=== PATIENT | female | born 1940 | race Caucasian/White ===

== ENCOUNTER 2018-08-30 16:07 | Inpatient (IN) | payer OTHER ==
--- NOTE | 2018-08-30 17:10 | PDOC ---
History of Present Illness <Shannon Low - Last Filed: 08/30/18 22:03> - General History Source: Patient Exam Limitations: No Limitations - History of Present Illness Initial Comments: 08/30/18 16:56 Pt. is a 78 y.o. F w/ PMHx. including but not exclusive to HTN, Hypothyroidism, Gout, Asthma, Breast CA(diagnosed 10+ years ago, deferred treatment), Liver disease? GERD? presents to ED by EMS with cough sore, throat and neck pain for 1 week duration. Pt. was seen at [facility] 1 week ago for URI and was given a 6 day course of Abx. Pt. states she initially felt better but now has been feeling worse since Friday when the neck pain began. Pt. is unable to to turn her head without eliciting intense pain(06/10). Pt. states it feels like "someone is stopping her." Pt. endorses having "shakes," cough productive of light green sputum, some difficulty breathing and some photophobia. Pt. denies nausea, vomiting, numbness/tingling, changes in urinary or bowel habits. Pt. states that she has had changes in her vision over the last year. 08/30/18 19:43 Pt.'s BUN/ Cr. came back as 23/1.9- soft tissue CT Neck w/ IV contrast ordered- risks and benefits explained to the Pt. inclunding the increased risk for JACK, Pt. to be aggressively hydrated before and after procedure. Pt. to receive a dose of N-acetyl cysteine. Radiology concerns were appreciated. 08/30/18 22:36 Pt. admitted under hospitalist care. Timing/Duration: 1 week Severity: moderate Modifying Factors: improves with: movement (worsens), rest (improves) Associated Symptoms: reports: fever/chills (chills, no fevers ), loss of appetite. denies: nausea/vomiting Aspirin Received prior to arrival: Yes: no aspirin today Beta Sanjay Contraindications(Core Measure): Yes: Not Prescribed <Bora Kline - Last Filed: 08/30/18 22:37> - General Chief Complaint: Pain, Acute Stated Complaint: NECK PAIN Time Seen by Provider: 08/30/18 16:19 Past History <Shannon Lwo - Last Filed: 08/30/18 22:03> - Travel Traveled outside of the country in the last 30 days: No Close contact w/someone who was outside of country & ill: No - Past Medical History Anemia: Yes Asthma: Yes Cancer: Yes (Breast CA) COPD: Yes Dementia: Yes GI Disorders: Yes (GERD) HTN: Yes Thyroid Disease: Yes Lung CA: Yes Other medical history: kidney disease, gout, cataract - Surgical History Abdominal Surgery: Yes (hernia repair) Other Surgical History: 08/30/18 17:27 Gynecologic surgery, does not remember - Suicide/Smoking/Psychosocial Hx Smoking History: Current every day smoker Number of Cigarettes Smoked Daily: 5 Information on smoking cessation initiated: No <Bora Kline - Last Filed: 08/30/18 22:37> - Past Medical History Allergies/Adverse Reactions: Allergies Allergy/AdvReac Type Severity Reaction Status Date / Time cefuroxime [From Ceftin] Allergy Verified 08/30/18 16:17 Home Medications: Ambulatory Orders Allopurinol [Zyloprim -] 100 mg PO DAILY 08/30/18 Amlodipine Besylate [Norvasc -] 10 mg PO DAILY 08/30/18 Benzonatate 100 mg PO TID 08/30/18 Budesonide/Formeterol Fumarate [SYMBICORT 160/4.5mcg -] 1 inh PO BID 08/30/18 Calcium Carbonate/Vitamin D3 [Calcium 600+D Softgel] 1 each PO DAILY 08/30/18 Docusate Sodium [Colace] 100 mg PO BID 08/30/18 Levothyroxine [Synthroid -] 75 mcg PO DAILY 08/30/18 Pseudoeph/Dm/Guaifen/Acetamin [ Day Time Cold-Flu Rel Sftgl] 1 each PO ASDIR 08/30/18 Review of Systems - Review of Systems Able to Perform ROS?: Yes Is the patient limited Persian proficient: No Constitutional: Yes: Chills, Loss of Appetite HEENTM: Yes: Cataracts, Hearing Loss (chronic), Throat Pain, Throat Swelling. No: Eye Pain, Blurred Vision, Recent change in vision, Tinnitus Respiratory: Yes: Cough, Shortness of Breath, Wheezing, Productive cough (light green sputum). No: Hemoptysis ABD/GI: Yes: Constipated, Difficulty Swallowing, Poor Appetite, Poor Fluid Intake. No: Abdominal Distended, Nausea, Vomiting : No: Burning, Dysuria, Discharge, Frequency, Flank Pain, Hematuria, Pain Integumentary: No: Symptoms Reported Neurological: Yes: Dizziness. No: Headache Endocrine: No: Symptoms Reported <Bora Kline - Last Filed: 08/30/18 22:37> *Physical Exam - Vital Signs Last Vital Signs Temp Pulse Resp BP Pulse Ox 97.5 F L 88 18 165/76 98 08/30/18 16:18 08/30/18 16:18 08/30/18 16:18 08/30/18 16:18 08/30/18 16:18 <Shannon Low - Last Filed: 08/30/18 22:03> - Vital Signs Last Vital Signs Temp Pulse Resp BP Pulse Ox 97.5 F L 88 18 165/76 98 08/30/18 16:18 08/30/18 16:18 08/30/18 16:18 08/30/18 16:18 08/30/18 16:18 - Physical Exam General Appearance: Yes: Nourished, Appropriately Dressed, Apparent Distress HEENT: positive: CHERRIE, Symmetrical, TMs Normal, Pharyngeal Erythema, Tonsillar Erythema, Thrush. negative: Normal Voice, Pharynx Normal, Rhinorrhea, Sinus Tenderness, TM Erythema, Excessive drooling Neck: positive: Tender, Rigid, Tender lateral. negative: Carotid bruit, Lymphadenopathy (R) (limited exam d/t pain), Lymphadenopathy (L) Respiratory/Chest: positive: Respiratory Distress, Decreased Breath Sounds, Crackles, Wheezing. negative: Chest Tender, Lungs Clear, Normal Breath Sounds Cardiovascular: positive: Regular Rhythm, Regular Rate, S1, S2. negative: Edema , JVD, Murmur Vascular Pulses: Dorsalis-Pedis (R): 1+ (2+ radial b/l), Doralis-Pedis (L): 1+ Gastrointestinal/Abdominal: positive: Normal Bowel Sounds, Soft, Hernia. negative: Distended, Guarding, Rebound, Tenderness Rectal Exam: positive: deferred Musculoskeletal: positive: Normal Inspection. negative: CVA Tenderness Extremity: positive: Normal Capillary Refill, Normal Inspection. negative: Tender, Pedal Edema, Swelling, Calf Tenderness Neurologic: positive: Alert, Normal Mood/Affect, Normal Response, Respond to painful stimul, Responsive <Bora Kline - Last Filed: 08/30/18 22:37> Moderate Sedation - Procedure Monitoring Vital Signs: Procedure Monitoring Vital Signs Temperature 97.5 F L 08/30/18 16:18 Pulse Rate 88 08/30/18 16:18 Respiratory Rate 18 08/30/18 16:18 Blood Pressure 165/76 08/30/18 16:18 O2 Sat by Pulse Oximetry (%) 98 08/30/18 16:18 <Shannon Low - Last Filed: 08/30/18 22:03> - Procedure Monitoring Vital Signs: Procedure Monitoring Vital Signs Temperature 97.5 F L 08/30/18 16:18 Pulse Rate 88 08/30/18 16:18 Respiratory Rate 18 08/30/18 16:18 Blood Pressure 165/76 08/30/18 16:18 O2 Sat by Pulse Oximetry (%) 98 08/30/18 16:18 <Bora Kline - Last Filed: 08/30/18 22:37> ED Treatment Course - LABORATORY CBC & Chemistry Diagram: 08/30/18 17:30 08/30/18 17:30 - ADDITIONAL ORDERS Additional order review: Laboratory Results 08/30/18 08/30/18 17:30 17:30 Sodium 137 Potassium 4.1 Chloride 101 Carbon Dioxide 28 Anion Gap 8 BUN 23 H Creatinine 1.9 H Creat Clearance w eGFR 25.70 Random Glucose 93 Lactic Acid 0.7 Calcium 9.0 Magnesium 2.0 Total Bilirubin 0.3 AST 18 ALT 18 Alkaline Phosphatase 186 H Total Protein 6.9 Albumin 3.0 L 08/30/18 17:30 RBC 4.39 MCV 86.3 MCHC 32.8 RDW 15.0 MPV 7.2 L Neutrophils % 80.0 Lymphocytes % 11.1 Monocytes % 7.1 Eosinophils % 1.1 Basophils % 0.7 - Medications Given in the ED: ED Medications Discontinued Medications Generic Name Dose Route Start Last Admin Trade Name Freq PRN Reason Stop Dose Admin Acetaminophen 650 mg 08/30/18 17:46 08/30/18 18:03 Tylenol - PO 08/30/18 17:47 650 mg ONCE ONE Administration Albuterol/Ipratropium 1 amp 08/30/18 17:23 08/30/18 17:46 Duoneb - NEB 08/30/18 17:24 1 amp ONCE ONE Administration Cyclobenzaprine HCl 5 mg 08/30/18 17:44 08/30/18 18:03 Flexeril - PO 08/30/18 17:45 5 mg ONCE ONE Administration Dexamethasone Sodium Phosphate 12 mg 08/30/18 17:21 08/30/18 17:51 Decadron Injection - IVPB 08/30/18 17:22 12 mg ONCE ONE Administration Ketorolac Tromethamine 30 mg 08/30/18 17:19 08/30/18 17:46 Toradol Injection - IVPUSH 08/30/18 17:20 30 mg ONCE ONE Administration <Shannon Low - Last Filed: 08/30/18 22:03> - LABORATORY CBC & Chemistry Diagram: 08/30/18 17:30 08/30/18 17:30 <Bora Kline - Last Filed: 08/30/18 22:37> *DC/Admit/Observation/Transfer - Discharge Dispostion Decision to Admit order: Yes Decision to Admit order Date/Time: 08/30/18 22:03 <Shannon Low - Last Filed: 08/30/18 22:03> - Discharge Dispostion Decision to Admit order: Yes <Bora Kline - Last Filed: 08/30/18 22:37> Diagnosis at time of Disposition: Pleural effusion, Pneumonia, Neck pain, Throat pain in adult - Referrals Referrals: ON STAFF,NOT [Non Staff, Medical] -
--- NOTE | 2018-08-30 17:11 | PDOC ---
Attending Attestation - Resident Resident Name: Bora Kline - ED Attending Attestation I have performed the following: I have examined & evaluated the patient, The case was reviewed & discussed with the resident, I agree w/resident's findings & plan - HPI HPI: 08/30/18 17:40 Ms. Taylor is a 78-year-old female with a past medical history significant for Breast CA (10 years ago), Asthma, HTN, Hypothyroidism, hx of gout presents to the emergency department from [facility] with neck pain and a sore throat. The patient reports shes been having URI symptoms for the past weeks, reports following up at [facility] 6 days ago, where she was prescribed abx. The patient reports finishing the antibiotic course, with relief ; however the patient reports on Friday the symptoms presented again. The patient reports similar symptoms as prior URIs with a new onset of neck pain, thats aggravated with lateral rotation to the left and right. The patient reports associated symptoms of cough with light greenish sputum production. Allergies: cefuroxime Social history: Current everyday smoker. Surgical history: Abd surgery. PCP: None reported 08/30/18 20:06 - Physicial Exam PE: 08/30/18 17:41 NCAT, PERRL, EOMI, clear conjunctiva, anicteric, dry mucus membranes, clear oropharynx, no tonsillar hypertrophy. Airway patent, normal phonation. Uvula midline. No sinus tenderness, TM clear, no pinna tenderness to manipulation. Diffuse tenderness to paracervical and trapezius muscle regions. neck diffusely tender, right cervical neck > left, able to range and shake head up and down lungs with b/l exp wheezing. RRR. Abdomen with soft right sided hernia, no tenderness, reducible. WWP, no rash. no calf tenderness. ROBERSON x4, no focal neuro deficits. - Medical Decision Making 08/30/18 17:43 DDx. 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 VS wnl. wheezing, neck pain Prior notes reviewed, including admissions, discharges and consultations. laboratory results and imaging reviewed, basic labs and lytes wnl, notable for elevated Cr 1.9, no prior. lactic normal, reassuring. CXR_left pleural consolidation vs effusion Cardiac panel_ EKG normal sinus rhythm, no interval abnormalities, narrow QRS, ST and T wave segments and morphology normal. Nonspecific T wave abnormalities strep neg, flu neg. no fevers, nontoxic appearing. ED course: IVF, NAC for renal protection. duoneb for wheezing, analgesia and flexeril/lidoderm patch. doxycycline abx. CT soft tissue neck to eval for deep space/oropharyngeal infection /abscess with limitations in neck mobility. analgesia for suspected neck spasms, with improvement in pain. CT neck negative, emphysematous changes. CT with contrast, risks and benefit profile, benefit>risk, will hydrate and give NAC, signed consent form informing of risks with contrast dye on elevated Cr./nephropathy risk. no meningeal signs. likely pneumonia, with sputum production/cough and wheezing, Doxycycline for CAP coverage; allergy to cephalosporin, unclear reaction so will not give bedside pocus thorax exam with +moderate left pleural effusion. A line profile. lung sliding both sides. can benefit from dx/therapeutic tap as inpt with IR, as no respiratory distress/ failure or hypoxia. Dispo: Admit for clinical pneumonia, failed outpatient abx, still possible viral etiology and symptomatic left pleural effusion. Discussed results and management plan with pt at bedside, agree with impression and plan 08/30/18 22:03 Procedures - Bedside Ultrasound Bedside Ultrasound: Lung Remarks: 08/30/18 22:04 POCUS thoracic exam performed, indication includes cough/dyspnea. views obtained (bilateral lung boss). Findings include bilateral A lines, bilateral lung sliding in all boss. +left moderate pleural effusion. Impression: Pleural effusion. no e/o PTX/alveolar interstitial syndrome.
[2018-08-30] MEDS ORDERED: KETOROLAC TROMETHAMINE 30 MG/1 ML VIAL IVPUSH ONE (17:19)
[2018-08-30] MEDS ORDERED: DEXAMETHASONE SOD PHOSPHATE 20 MG/5 ML VIAL IVPB ONE (17:21)
[2018-08-30] MEDS ORDERED: ALBUTEROL SO4 2.5/IPRATROPIUM 0.5 INH SOL 3 ML VIAL.NEB. NEB ONE ×2 (17:23→17:36)
[2018-08-30] MEDS ORDERED: SODIUM CHLORIDE 1,000 ML IV SCH (17:30)
[2018-08-30] MEDS ORDERED: DEXAMETHASONE SOD PHOSPHATE 4 MG/1 ML VIAL ONE (17:36)
[2018-08-30] MEDS ORDERED: KETOROLAC TROMETHAMINE 30 MG/1 ML VIAL ONE (17:36)
[2018-08-30 17:40] LABS: BASO % 0.7 % (0-2.0); EOS % 1.1 % (0-4.5); HEMATOCRIT 37.9 % (32.4-45.2); HEMOGLOBIN 12.4 GM/dL (10.7-15.3); LYMPH % 11.1 % (8-40); MCH 28.3 pg (25.7-33.7); MCHC 32.8 g/dl (32.0-36.0); MEAN CELL VOLUME 86.3 fl (80-96); MEAN PLT VOLUME 7.2 fl (7.5-11.1); MONO % 7.1 % (3.8-10.2); PLATELET COUNT 403 K/MM3 (134-434); RBC 4.39 M/mm3 (3.60-5.2); WHITE BLOOD COUNT 8.6 K/mm3 (4.0-10.0)
[2018-08-30] MEDS ORDERED: CYCLOBENZAPRINE HCL 10 MG TABLET (FP) PO ONE (17:44)
[2018-08-30] MEDS ORDERED: ACETAMINOPHEN 325 MG TABLET (FP) PO ONE (17:46)
[2018-08-30] MEDS ORDERED: LIDOCAINE 5% TOPICAL PATCH TP ONE (17:47)
[2018-08-30] MEDS ORDERED: CYCLOBENZAPRINE HCL 10 MG TABLET (FP) ONE (17:59)
[2018-08-30] MEDS ORDERED: ACETAMINOPHEN 325 MG TABLET (FP) ONE (17:59)
[2018-08-30 18:04] LABS: ALK PHOS 186 U/L (45-117); ANION GAP 8 MMOL/L (8-16); BILIRUBIN,TOTAL 0.3 mg/dL (0.2-1); BLOOD UREA NITROGEN 23 mg/dL (7-18); CHLORIDE 101 mmol/L (98-107); CO2 28 mmol/L (21-32); CREATININE 1.9 mg/dL (0.55-1.3); GLUCOSE,RANDOM 93 mg/dL (74-106); POTASSIUM 4.1 mmol/L (3.5-5.1); SGOT/AST 18 U/L (15-37); SGPT/ALT 18 U/L (13-61); SODIUM 137 mmol/L (136-145); TOT PROT 6.9 g/dl (6.4-8.2)
[2018-08-30] MEDS ORDERED: ACETYLCYSTEINE 20% 200MG/ML 30ML VIAL *FOR INJECTION USE ONLY IVPB ONE ×2 (19:02→21:17)
[2018-08-30] MEDS ORDERED: DOXYCYCLINE INJECTION 100 MG in DEXTROSE 5%-WATER - 100 ML IVPB ONE (20:25)
[2018-08-30] MEDS ORDERED: LIDOCAINE 5% TOPICAL PATCH ONE (21:17)
[2018-08-30] MEDS ORDERED: DOXYCYCLINE HYCLATE 100 MG VIAL ONE (21:17)
--- NOTE | 2018-08-30 22:11 | PN ---
Teaching Attending Note Name of Resident: Ellis Powell ATTENDING PHYSICIAN STATEMENT I saw and evaluated the patient. I reviewed the resident's note and discussed the case with the resident. I agree with the resident's findings and plan as documented. SUBJECTIVE: Patient seen and examined with resident; please see their note for further historical information. Briefly, this is a 78 y/o CF with a PMH as discussed. She presents wityh progressive throat pain for the past week. No desatting, protecting her airway, no dysphagia or odynophagia. She doesn't know what kind of breast cancer she has. She has a history of untreated breast cancer (states that she wasn't interested in treatment at the time but now is willing to see palliative care and oncology). She is hemodynamically stable and afebrile. 10 sys ROS done and negative aside from HPI PMH and PSH reviewed FH asked and noncontributory Socially she is non drug user nondrinker Medication list reviewed; pending reconciliation OBJECTIVE: VS, labs, imaging all stable NAD, AAO, resting in bed Diminished L-sided breath sounds; sym exp NT ND +BS CN2-12 wnl, no fnd Tearful mood, appropriate affect Labs reviewed; CBC unremarkable, Cr elevated at 1.9; negative flu and strop, alk phos elevated 186; esr/crp and further studies pending Imaging reviewed; large pleural effusion seen on CXR. CT scans pending EKG reviewed ASSESSMENT AND PLAN: Patient presents with throat pain; she has had weeks of worsening SOB and the throat pain worsening for a week. Has h/o untreated breast cancer and is presenting with large malignant pleural effusions 1) Throat Pain -No acute findings on prelim read. ?Referred pain? PRN management sx -Check swallow study, followup final report for the CT neck -If no improvement or developing worsening sx call ENT 2) Likely Malignant Pleural Effusion -Checking CT; followup. Place the patient on incentive spirometry, IR consult for drainage. May need pleurex? -Followup fluid studies, cytology. 3) History of untreated breast cancer -Untreated for ambiguous reasons; now she is agreeable to see oncology and palliative care. Consult above services, check CT body 4) PATY -This dx vs. CKD; check renal anatomy on imaging, obtain FeNa. Trend BMP and monitor UOP. If no improvement call nephrology. 5) HTN -Hold amlodipine til post produre 6) Hypothyroid -Continue LT4; check TSH 7) Elevated Alk Phos -Eval for mets Full Code
--- NOTE | 2018-08-30 23:04 | HP ---
CHIEF COMPLAINT: Neck Pain PCP: Dr. Shelton HISTORY OF PRESENT ILLNESS: 78 y/o F with HTN, Gout, Asthma, Breast Cancer (+10 years, Defferred tx), NM ( 25 years ago) was BIBEMS from [facility] with Neck pain. Patient recently had a cough productive of green sputum for which she completed a 6 day course of ABx (unknown which). Shortly after, she started to feel worse with increasing sputum production. About 4 days ago, patient started to have some neck pain that suddenly became intense today. This is the first time she experienced this pain. She describes it as constant, sharp 7/10, does not radiate, worsens with coughing or arm movement, localized to her right side primarily. She tried Rest with minimal relief; did not try any NSAIDs. Previously the pain was tolerable, but today it became severe prompting the patient to visit the ED. Patient says her ROM has increased since arrival in the ED. Denies any recent trauma to the area, no changes in sleeping positions. Denies any associated fevers, chills, chest pain, SOB, nausea, vomiting diarrhea , constipation. ER course was notable for: (1) CT Neck, CXR (2) Doxycycline (3) Toradol, Decadron, Flexeril Recent Travel: Denies PAST MEDICAL HISTORY: HTN, Hypothyroidism, Gout, Asthma, Breast Cancer (+10 years, Defferred tx), B/L Cataracts, NM (25 years ago) PAST SURGICAL HISTORY: Abdominal hernia Sx (Unknown which type or when) Social History: Smokin cigarrettes daily; Has been smoking for 50 years Alcohol: Denies Drugs: Denies Ambulation: Walker Residence: [facility] assisted living Family History: Denies Allergies cefuroxime [From Ceftin] Allergy (Verified 08/30/18 16:17) HOME MEDICATIONS: Home Medications Medication Instructions Recorded Allopurinol [Zyloprim -] 100 mg PO DAILY 08/30/18 Amlodipine Besylate [Norvasc -] 10 mg PO DAILY 08/30/18 Benzonatate 100 mg PO TID 08/30/18 Budesonide/Formeterol Fumarate 1 inh PO BID 08/30/18 [SYMBICORT 160/4.5mcg -] Calcium Carbonate/Vitamin D3 1 each PO DAILY 08/30/18 [Calcium 600+D Softgel] Docusate Sodium [Colace] 100 mg PO BID 08/30/18 Levothyroxine [Synthroid -] 75 mcg PO DAILY 08/30/18 Pseudoeph/Dm/Guaifen/Acetamin [Sm 1 each PO ASDIR 08/30/18 Day Time Cold-Flu Rel Sftgl] REVIEW OF SYSTEMS As per HPI PHYSICAL EXAMINATION Vital Signs - 24 hr 08/30/18 16:18 Temperature 97.5 F L Pulse Rate 88 Respiratory 18 Rate Blood Pressure 165/76 O2 Sat by Pulse 98 Oximetry (%) GENERAL: A&Ox3, NAD, sitting upright HEAD: NCAT EYES: PERRL, EOMI, B/L Cataracts EARS, NOSE, THROAT: Oral Thrush, No posterior oropharynx erythema, Moist mucous membranes. NECK: Decreased ROM throughout. Right Posterior paracervical muscles tender to palpation with radiation to the Right superior Trapezius, No Midline tenderness , No overlying erythema, No obvious signs of trauma. CHEST: Right anterior chest tender to palpation inferior to the clavicle and over the right breast tissue laterally LUNGS: Decreased breath sounds at the bases, Rales and Wheezes heard throughout HEART: Regular rate and rhythm, normal S1 and S2 without murmur ABDOMEN: Soft, Reducible Right sided hernia, nontender, not distended, + bowel sounds, no guarding EXTREMITIES: 2+ pulses, No peripheral edema. NEUROLOGICAL: Cranial nerves II-XII intact. Normal speech. 4/5 muscle strength to handgrip, elbow flexion/extension, shoulder abduction. C5-T1 gross sensation intact throughout. SKIN: Warm, dry Laboratory Results - last 24 hr 08/30/18 08/30/18 08/30/18 17:30 17:30 17:30 WBC 8.6 RBC 4.39 Hgb 12.4 Hct 37.9 MCV 86.3 MCH 28.3 MCHC 32.8 RDW 15.0 Plt Count 403 MPV 7.2 L Absolute Neuts (auto) 6.9 Neutrophils % 80.0 Lymphocytes % 11.1 Monocytes % 7.1 Eosinophils % 1.1 Basophils % 0.7 Nucleated RBC % 0 Sodium 137 Potassium 4.1 Chloride 101 Carbon Dioxide 28 Anion Gap 8 BUN 23 H Creatinine 1.9 H Creat Clearance w eGFR 25.70 Random Glucose 93 Lactic Acid 0.7 Calcium 9.0 Magnesium 2.0 Total Bilirubin 0.3 AST 18 ALT 18 Alkaline Phosphatase 186 H Total Protein 6.9 Albumin 3.0 L Influenza A (Rapid) Influenza B (Rapid) Group A Strep Rapid 08/30/18 08/30/18 17:40 17:40 WBC RBC Hgb Hct MCV MCH MCHC RDW Plt Count MPV Absolute Neuts (auto) Neutrophils % Lymphocytes % Monocytes % Eosinophils % Basophils % Nucleated RBC % Sodium Potassium Chloride Carbon Dioxide Anion Gap BUN Creatinine Creat Clearance w eGFR Random Glucose Lactic Acid Calcium Magnesium Total Bilirubin AST ALT Alkaline Phosphatase Total Protein Albumin Influenza A (Rapid) Negative Influenza B (Rapid) Negative Group A Strep Rapid Negative ASSESSMENT/PLAN: 78 y/o F with HTN, Gout, Asthma, Hypothyroidism, Breast Cancer (+10 years, Defferred tx) was BIBEMS from [facility] with Neck pain. #Neck Pain -Worsening neck pain without any neurological changes from baseline -CT Neck with Contrast: No Abscess, Centrilobular emphsyema -Received Flexeril in ED; Continue Ofirmev PRN for pain -Physical Therapy #Left side Effusion -Possibly Malignant? effusion seen on CXR, given hx on untreated Breast Ca -Received Doxycycline in ED; Will hold ABx for now given Afebrile and without elevated WBC count -Influenza, Rapid Strep negative -Blood and throat Cx pending -Oncology (Dr. Guevara) consulted -Can consider Pulmonology consult -CT Chest, CT A/P Without contrast pending -Would likely benefit from Thoracentesis, Consider IR Consult and cytology -Continue Duonebs #Elevated Cr -Unclear Baseline, Likely PATY -Received IV Contrast in ED -Random Urine Na, Urine Osmolality, Serum Osmolality ordered -Kidney/Renal US Pending -Continue NS @ 100 mls/hr #HTN -Elevated BP in ED possibly due to pain -Continue to monitor -Hold HTN meds until post procedure #Oral Thrush -Nystatin Swish and Swallow #Gout -Stable -Restart home meds once reconciled #Asthma -Continue Duonebs -Restart home meds #Hypothyroidism -Stable, Will check TSH -Restart home meds #Elevated Alkaline Phosphatase -Will need evaluation for mets #FEN -IV NS @ 100 Mls/hr -Lytes wnl -Sodium Controlled Diet #PPx -DVT: Heparin TID Dispo: Admit to med-Surg, Will need Med-Rec Visit type - Emergency Visit Emergency Visit: Yes ED Registration Date: 08/30/18 Care time: The patient presented to the Emergency Department on the above date and was hospitalized for further evaluation of their emergent condition. - New Patient This patient is new to me today: Yes Date on this admission: 09/02/18 - Critical Care Critical Care patient: No
[2018-08-31] MEDS ORDERED: ACETAMINOPHEN 1000 MG/100 ML VIAL (NON FORMULARY) IVPB PRN (00:49)
[2018-08-31] MEDS ORDERED: SODIUM CHLORIDE 1,000 ML IV SCH (00:49)
[2018-08-31] MEDS: NYSTATIN 500,000 UNITS/5 ML SUSPENSION PO SCH ×4 (05:25→18:19)
[2018-08-31] MEDS: HEPARIN NA (PORCINE) 5,000 UNITS/ML 1ML VIAL SQ SCH ×3 (05:25→21:38)
[2018-08-31 07:24] LABS: BASO % 0.4 % (0-2.0); HEMATOCRIT 34.9 % (32.4-45.2); HEMOGLOBIN 11.5 GM/dL (10.7-15.3); LYMPH % 7.5 % (8-40); MCH 28.4 pg (25.7-33.7); MCHC 32.9 g/dl (32.0-36.0); MEAN CELL VOLUME 86.2 fl (80-96); MEAN PLT VOLUME 7.7 fl (7.5-11.1); MONO % 1.2 % (3.8-10.2); NEUT % 90.9 % (42.8-82.8); PLATELET COUNT 395 K/MM3 (134-434); RBC 4.05 M/mm3 (3.60-5.2); RDW 14.9 % (11.6-15.6); WHITE BLOOD COUNT 5.9 K/mm3 (4.0-10.0)
[2018-08-31 07:54] LABS: ALBUMIN 2.5 g/dl (3.4-5.0); ALK PHOS 155 U/L (45-117); ANION GAP 8 MMOL/L (8-16); BILIRUBIN,TOTAL 0.4 mg/dL (0.2-1); BLOOD UREA NITROGEN 24 mg/dL (7-18); CHLORIDE 103 mmol/L (98-107); CO2 27 mmol/L (21-32); CREATININE 1.9 mg/dL (0.55-1.3); GLUCOSE,RANDOM 126 mg/dL (74-106); MAGNESIUM 2.2 mg/dL (1.8-2.4); PHOSPHOROUS 5.3 mg/dL (2.5-4.9); POTASSIUM 4.6 mmol/L (3.5-5.1); SGOT/AST 11 U/L (15-37); SGPT/ALT 15 U/L (13-61); SODIUM 138 mmol/L (136-145); TOT PROT 6.2 g/dl (6.4-8.2)
[2018-08-31 09:50] LABS: OSMOLALITY,SERUM 285 mosm/kg (278-305)
--- NOTE | 2018-08-31 11:21 | PN ---
Physical Exam: SUBJECTIVE: Patient seen and examined this AM. She states that her pain is much better today and is wondering when she will be able to go home. OBJECTIVE: Vital Signs Period Temp Pulse Resp BP Sys/Trevino Pulse Ox Last 24 Hr 97.5 F-98.1 F 88-99 16-22 139-165/68-85 94-98 GENERAL: A&O, no acute distress HEAD: Normocephalic, atraumatic. EYES: PERRL, no scleral icterus EARS, NOSE, THROAT: oropharynx clear without exudates. Moist mucous membranes. NECK: supple without lymphadenopathy LUNGS: minimal crackles / wheezes at the left base HEART: Regular rate and rhythm, normal S1 and S2 without murmur ABDOMEN: Soft, nontender to palpation, normoactive bowel sounds MUSCULOSKELETAL: some tenderness to palpation on the left posterior neck and shoulder musculature, no palpable masses or abscesses EXTREMITIES: 2+ pulses, warm, well-perfused. No peripheral edema. 4/5 strength on the left, otherwise normal exam. NEUROLOGICAL: Cranial nerves II-XII grossly intact. Normal speech. PSYCHIATRIC: Cooperative. Good eye contact. Appropriate mood and affect. SKIN: Warm, dry, no rashes or lesions noted Laboratory Results - last 24 hr 08/30/18 08/30/18 08/30/18 17:30 17:30 17:30 WBC 8.6 RBC 4.39 Hgb 12.4 Hct 37.9 MCV 86.3 MCH 28.3 MCHC 32.8 RDW 15.0 Plt Count 403 MPV 7.2 L Absolute Neuts (auto) 6.9 Neutrophils % 80.0 Lymphocytes % 11.1 Monocytes % 7.1 Eosinophils % 1.1 Basophils % 0.7 Nucleated RBC % 0 Sodium 137 Potassium 4.1 Chloride 101 Carbon Dioxide 28 Anion Gap 8 BUN 23 H Creatinine 1.9 H Creat Clearance w eGFR 25.70 Random Glucose 93 Serum Osmolality 285 Lactic Acid 0.7 Calcium 9.0 Phosphorus Magnesium 2.0 Total Bilirubin 0.3 AST 18 ALT 18 Alkaline Phosphatase 186 H Total Protein 6.9 Albumin 3.0 L TSH Influenza A (Rapid) Influenza B (Rapid) Group A Strep Rapid 08/30/18 08/30/18 08/31/18 17:40 17:40 06:40 WBC 5.9 RBC 4.05 Hgb 11.5 Hct 34.9 MCV 86.2 MCH 28.4 MCHC 32.9 RDW 14.9 Plt Count 395 MPV 7.7 Absolute Neuts (auto) 5.4 Neutrophils % 90.9 H Lymphocytes % 7.5 L D Monocytes % 1.2 L D Eosinophils % 0.0 D Basophils % 0.4 Nucleated RBC % 0 Sodium Potassium Chloride Carbon Dioxide Anion Gap BUN Creatinine Creat Clearance w eGFR Random Glucose Serum Osmolality Lactic Acid Calcium Phosphorus Magnesium Total Bilirubin AST ALT Alkaline Phosphatase Total Protein Albumin TSH Influenza A (Rapid) Negative Influenza B (Rapid) Negative Group A Strep Rapid Negative 08/31/18 06:40 WBC RBC Hgb Hct MCV MCH MCHC RDW Plt Count MPV Absolute Neuts (auto) Neutrophils % Lymphocytes % Monocytes % Eosinophils % Basophils % Nucleated RBC % Sodium 138 Potassium 4.6 Chloride 103 Carbon Dioxide 27 Anion Gap 8 BUN 24 H Creatinine 1.9 H Creat Clearance w eGFR 25.70 Random Glucose 126 H Serum Osmolality Lactic Acid Calcium 9.0 Phosphorus 5.3 H Magnesium 2.2 Total Bilirubin 0.4 AST 11 L ALT 15 Alkaline Phosphatase 155 H Total Protein 6.2 L Albumin 2.5 L TSH 1.93 Influenza A (Rapid) Influenza B (Rapid) Group A Strep Rapid Active Medications Generic Name Dose Route Start Last Admin Trade Name Freq PRN Reason Stop Dose Admin Acetaminophen 1,000 mg 08/31/18 00:49 Ofirmev Injection - IVPB Q6H PRN PAIN LEVEL 6-10 Albuterol/Ipratropium 1 amp 08/31/18 01:03 Duoneb - NEB Q4H PRN SHORTNESS OF BREATH Heparin Sodium (Porcine) 5,000 unit 08/31/18 06:00 08/31/18 05:25 Heparin - SQ 5,000 unit TID [facility] Administration Miscellaneous 1 each 08/30/18 22:00 Lidoderm Patch Removal MC DAILY@2200 [facility] Nystatin 500,000 units 08/31/18 06:00 08/31/18 05:25 Nystatin Oral Suspension - PO 500,000 units Q6HPO [facility] Administration ASSESSMENT/PLAN: 78 y/o F with HTN, Gout, Asthma, Hypothyroidism, Breast Cancer (+10 years, Defferred tx) was brought from [facility] with Neck pain Left Sided Pleural Effusion -CXR noted with significant left sided effusion vs infiltrate -With history of untreated malignancy could be a malignant effusion -Consult pulmonology -For IR percutaneous thoracentesis -Send fluid for analysis Neck Pain -Improved from yesterday -Likely musculoskeletal in nature -CT without any signs of mass/abscess collection PATY vs CKD -BUN/Cr 24/1.9 -Urine Osms/Lytes pending -Renal US with atrophic right kidney, b/l echogenic kidneys, no signs of hydro -Trend BMP HTN -Verify and restart home Norvasc Oral Thrush -Nystatin swish and swallow Asthma -DuoNebs PRN -Continue home Symbicort DVT Prophylaxis -Heparin 5000 units SQ TID FEN -Fluids: none -Electrolytes: No electrolyte abnormalities, BMP in AM -Nutrition: Na Controlled diet Disposition Med/Surg Visit type - Emergency Visit Emergency Visit: Yes ED Registration Date: 08/30/18 Care time: The patient presented to the Emergency Department on the above date and was hospitalized for further evaluation of their emergent condition. - New Patient This patient is new to me today: Yes Date on this admission: 08/31/18 - Critical Care Critical Care patient: No
--- NOTE | 2018-08-31 12:03 | PN ---
Teaching Attending Note Name of Resident: Lucio Oneill ATTENDING PHYSICIAN STATEMENT I saw and evaluated the patient. I reviewed the resident's note and discussed the case with the resident. I agree with the resident's findings and plan as documented. SUBJECTIVE: Evaluated her this morning of medicine floor. she has been admitted for the W/U of the shoulder and neck pain. She states that she was in her [facility] till 10 days ago, she states that she developed coryza symptoms and she was treated with antibiotics for 5 days, at the same time she developed the gradual onset, worsening, non radiating neck and Left shoulder pain, which she states is sharp pain, and now is more in the posterior aspect of the the Left side of the chest wall, no rash, no fever , no chills, no night sweets no recent weight loss. She denies any trigger, no aggravating no alleviating factors. She did not take any medication or put heating pad for the pain control. OBJECTIVE: She is sitting in bed in no distress. has mild productive cough MMM No ocular discharge No nasal discharge Abd: BS+, NT/ND NO RASH. has no point tenderness in the neck, has some tenderness over the cervical spine, has minimal limitation of the movement int he neck due to pain in the muscles, no other complaints at this time. Breast has a scar fromt eh biopsy on the R breast, no clear mass in my exam, no other skin abnormalities No LAD in the neck and axila. has no shoulder tenderness and no limitation of movement in the active and passive shoulder movement ASSESSMENT AND PLAN: She is a 78 Y/O F active smoker for lionel than 50 years as well as second hand smoker P/W l shoulder and post chest pain in [place] xray found to have L sided pleural effusion. Shoulder pain: combination of MSK and referral pain, pain management with NSAIDS, no further intervention indicated at this time Pleural effusion: she is post infection, smoker and has possibility of malignant effusion as well as post pneumonic effusion , as it is unilateral, will ask IR to tab the effusion and will F/u with the results, pulmonayr input appreciated Nicotine use: will give nicotine patch Dvt ppx: Lovenox Diet: regular diet no need for further BRODY for neck pain .
--- NOTE | 2018-08-31 15:05 | PN ---
Progress Note (short form) - Note Progress Note: PULMONARY CONSULTATION DICTATED 08/31/18 IMP LLL CONSOLIDATION/EFFUSION ?PNEUMONIA,? MALIGNANT ASTHMA ? H/O BREAST CA PATY ASTHMA GOUT PLAN IV ABX CULTURES INHALED BRONCHODILATORS IVF CHEST CT DIAGNOSTIC THORACENTESIS MONITOR LYTES,RENAL FUNCTION URINARY ANTIGENS DR GAINES Problem List - Problems (1) Asthma Code(s): J45.909 - UNSPECIFIED ASTHMA, UNCOMPLICATED (2) Pleural effusion Code(s): J90 - PLEURAL EFFUSION, NOT ELSEWHERE CLASSIFIED (3) Pneumonia Code(s): J18.9 - PNEUMONIA, UNSPECIFIED ORGANISM (4) H/O malignant neoplasm of breast Code(s): Z85.3 - PERSONAL HISTORY OF MALIGNANT NEOPLASM OF BREAST (5) Anemia Code(s): D64.9 - ANEMIA, UNSPECIFIED (6) Asthma Code(s): J45.909 - UNSPECIFIED ASTHMA, UNCOMPLICATED (7) Gout Code(s): M10.9 - GOUT, UNSPECIFIED
--- NOTE | 2018-08-31 15:53 | CONSULT ---
Consult Consult Specialty:: HEMATOLOGY-ONCOLOGY Referred by:: Harleen. NOHEMI Noe Reason for Consultation:: possible malignancy, hx of untreated breast mass - History of Present Illness Chief Complaint: shortness of breath History of Present Illness: 78 yr old woman with hx of untreated breast cancer, current everday smoker, HTN , gout, asthma, hx of VT(25yrs ago), resident of [facility](past 3yrs) presented with collar bone and neck pain. pain starts at base of neck radiates down her shoulders and is around her collar bone. also c/ o productive cough. Found to have LLL consolidation with concern for malignancy. started smoking at the age of 18, 5cigs per day. 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 denies ever receiving a colonoscopy 9-10 yrs ago she was found to have a mass in her right breast, underwent biopsy but did not return for results or treatment or further evaluation. did not want to be treated or find out her diagnosis at that time. denies fevers, chest pain, abdominal pain, diarrhea, constipation, headache, brusing/bleeding. 3 older brothers with cancer, knows atleast one of them was a smoker with lung cancer, older sister with breast cancer(unsure of type or age of dx) she at age of 67 from an VT. does not her mother's pmhx, father's side has "lots of cancer" - History Source History Provided By: Patient Limitations to Obtaining History: No Limitations - Past Medical History Cardio/Vascular: Yes: CAD, HTN, VT (25 yrs ago) ...: No - Alcohol/Substance Use Hx Alcohol Use: No - Smoking History Smoking history: Current every day smoker Aproximately how many cigarettes per day: 5 <Krish Briceno - Last Filed: 08/31/18 20:15> Home Medications <Whit Berg - Last Filed: 08/31/18 19:14> <Krish Briceno - Last Filed: 08/31/18 20:15> - Allergies Allergies/Adverse Reactions: Allergies Allergy/AdvReac Type Severity Reaction Status Date / Time cefuroxime [From Ceftin] Allergy Verified 08/30/18 16:17 - Home Medications Home Medications: Ambulatory Orders Allopurinol [Zyloprim -] 100 mg PO DAILY 08/30/18 Amlodipine Besylate [Norvasc -] 10 mg PO DAILY 08/30/18 Benzonatate 100 mg PO TID 08/30/18 Budesonide/Formeterol Fumarate [SYMBICORT 160/4.5mcg -] 2 inh PO BID 08/30/18 Calcium Carbonate/Vitamin D3 [Calcium 600+D Softgel] 2 each PO DAILY 08/30/18 Docusate Sodium [Colace] 100 mg PO BID 08/30/18 Levothyroxine [Synthroid -] 75 mcg PO DAILY 08/30/18 Pseudoeph/Dm/Guaifen/Acetamin [ Day Time Cold-Flu Rel Sftgl] 1 each PO ASDIR 08/30/18 Family Disease History - Family Disease History Family Disease History: CA: Sister <Krish Briceno - Last Filed: 08/31/18 20:15> Review of Systems - Review of Systems Constitutional: reports: Loss of Appetite, Unintentional Wgt. Loss. denies: Fever, Lethargy Eyes: reports: No Symptoms HENT: reports: No Symptoms Neck: reports: Pain on Movement Cardiovascular: reports: No Symptoms Respiratory: reports: Cough, SOB Gastrointestinal: reports: No Symptoms Breasts: reports: Lumps, Skin Changes. denies: Discharge from Nipple, Pain Musculoskeletal: denies: Joint Pain, Muscle Pain Neurological: reports: No Symptoms Hematology/Lymphatic: reports: No Symptoms <Krish Briceno - Last Filed: 08/31/18 20:15> Physical Exam Vital Signs: Vital Signs Temperature 98.1 F 08/31/18 18:45 Pulse Rate 100 H 08/31/18 18:45 Respiratory Rate 20 08/31/18 18:45 Blood Pressure 147/78 08/31/18 18:45 O2 Sat by Pulse Oximetry (%) 93 L 08/31/18 09:00 Labs: CBC, BMP 08/31/18 06:40 08/31/18 06:40 <Whit Berg - Last Filed: 08/31/18 19:14> Vital Signs: Vital Signs Temperature 98.4 F 08/31/18 13:30 Pulse Rate 99 H 08/31/18 13:30 Respiratory Rate 20 08/31/18 13:30 Blood Pressure 141/79 08/31/18 13:30 O2 Sat by Pulse Oximetry (%) 93 L 08/31/18 09:00 Constitutional: Yes: Well Nourished, No Distress, Calm Eyes: Yes: Conjunctiva Clear, EOM Intact HENT: Yes: Atraumatic, Normocephalic Neck: Yes: Supple, Trachea Midline. No: Decreased ROM, Lymphadenopathy, Rigid, Tenderness, Thyromegaly Cardiovascular: Yes: Regular Rate and Rhythm, S1, S2 Respiratory: Yes: Regular, Cough, Other (crackles at bases) Gastrointestinal: Yes: Normal Bowel Sounds, Soft, Hernia (large hernia right sided, well-healed midine scar) Breast(s): Yes: Left (intact normal skin, no nipple discharge, no palpable masses), Right (below nipple in 7pm position is firm hyperkeratotic puckered nonerythematous skin(as per patient it is the site of previous biopsy). no nipple discharge, nontender breast). No: Nipple Inversion Edema: No Peripheral Pulses WNL: Yes Neurological: Yes: Alert, Oriented ...Motor Strength: WNL Labs: CBC, BMP 08/31/18 06:40 08/31/18 06:40 <Krish Briceno - Last Filed: 08/31/18 20:15> Assessment/Plan 78 yr old woman with HTN, asthma, gout, h/o of breast mass, found to have LLL consolidation and PATY being treated for pneumonia Problem List: HTN asthma gout Breast mass LLL consolidation PATY pneumonia A/P patient is currently amenable to further investigation of her breast findings, awaiting thoracocentesis for evaluation of pleural fluid for infectious vs malignancy no lytic lesions noted in soft tissue neck CT, bone scan ordered for further evaluation txment for pneumonia <Krish Briceno - Last Filed: 08/31/18 20:15>
--- NOTE | 2018-08-31 16:21 | CONS ---
DATE OF CONSULTATION: 08/31/2018 REFERRING PHYSICIAN: Melisa Anand MD The patient is a 78-year-old white female with a past medical history of asthma, history of breast CA diagnosed 10 years ago, never treated, history of questionable liver disease, GERD, hypertension, hypothyroidism, long-standing history of tobacco use, approximately one-half pack per day for many years, still smoking. Admitted to [facility] with complaint of 3 to 4 day history of posterior right chest pain associated with cough productive of green sputum. The patient also states she felt a fever up to about 100 to 101, as well as chills. She denied any nausea, vomiting, or diaphoresis. Apparently she was seen at [facility] a week ago for URI symptoms. At that time, she was treated for a 6-day course of antibiotic therapy. Initially she felt improvement but her symptoms worsened on Friday prior to this admission. Patient also complains of some shortness of breath and dyspnea on exertion. There is no history of occupational exposure to chemicals or fumes. There is no history of recent travel. On admission, she had a chest x-ray performed, which revealed right lower lobe infiltrate as well as an effusion. She was placed on antibiotic therapy. Past medical history, again, includes asthma, hypertension, history of breast CA, never treated, hypothyroidism, gout, GERD, and questionable liver disease. REVIEW OF SYSTEMS: Positive for shortness of breath, positive chest congestion, positive back pain, positive cough, positive sputum, positive fever. No chest pain, no palpitations. No nausea, no vomiting, no hemoptysis. Current medications include Lidoderm, acetaminophen, heparin, DuoNeb, and nystatin. PHYSICAL EXAMINATION: General: The patient is a well-developed, well-nourished female, awake, alert, in no acute distress. Vital Signs: She is afebrile. Heart rate is 99. Blood pressure 141/79. Respiratory rate is 20. O2 saturation is 93% on 3 L. HEENT: Normocephalic, atraumatic. Neck: Supple. Heart: Regular, S1, S2. Chest: A few crackles at the left base. Abdomen: Soft. Bowel sounds are positive. Extremities: No cyanosis, edema. LABORATORY DATA: WBC is 5.9, hemoglobin 11.5, hematocrit 39.9, with a platelet count of 395,000. BUN 24, creatinine 1.9. Influenza negative. Group B negative. Chest x-ray: Left lower lobe consolidation and effusion. IMPRESSION: 1. Left lower lobe consolidation and effusion. Rule out possible community-acquired pneumonia. Cannot exclude possible underlying malignant etiology in view of long-standing history of tobacco use as well as a history of breast cancer. 2. Asthma. 3. Hypertension. 4. Gastroesophageal reflux disease. 5. Hypothyroidism. 6. Gout. PLAN: IV antibiotics, supplemental O2, inhaled bronchodilators. Obtain CT scan of the chest. Interventional Radiology consult for a diagnostic thoracentesis. Obtain cultures. FLO GAINES M.D. HEIDI/[id number]
--- NOTE | 2018-08-31 18:30 | PN ---
Teaching Attending Note Name of Resident: Krish Briceno ATTENDING PHYSICIAN STATEMENT I saw and evaluated the patient. I reviewed the resident's note and discussed the case with the resident. I agree with the resident's findings and plan as documented. ASSESSMENT AND PLAN: 78 y/o with HTN, hypothyrpoid, comes in with shortness of breath and shoulder pain. Noted to have Lt. plkeural effusion Remote h/o breast mass for which she was never treated On exam rt. breast lower quadrant puckering and induration will check bone scan Checking CT chest Thoracentesis of lt. pleural effusion will follow
[2018-09-01] MEDS: LIDOCAINE PATCH REMOVAL MC SCH ×2 (06:24→22:49)
[2018-09-01] MEDS: HEPARIN NA (PORCINE) 5,000 UNITS/ML 1ML VIAL SQ SCH ×3 (06:24→22:48)
[2018-09-01] MEDS: NYSTATIN 500,000 UNITS/5 ML SUSPENSION PO SCH ×4 (06:24→23:14)
[2018-09-01 07:43] LABS: INR 0.9 (0.83-1.09); PROTHROMBIN TIME (PATIENT) 10.6 SEC (9.7-13.0)
[2018-09-01 07:46] LABS: ACTIVATED PTT 25.5 SECONDS (25.2-36.5)
--- NOTE | 2018-09-01 07:59 | PN ---
Teaching Attending Note Name of Resident: Jose A Alcazar ATTENDING PHYSICIAN STATEMENT I saw and evaluated the patient. I reviewed the resident's note and discussed the case with the resident. I agree with the resident's findings and plan as documented. SUBJECTIVE: Patient is comfrotable, no shortness of breath at rest. No fever or chills. OBJECTIVE: Vital Signs Temperature 97.9 F 09/01/18 06:00 Pulse Rate 86 09/01/18 06:00 Respiratory Rate 20 09/01/18 06:00 Blood Pressure 137/83 09/01/18 06:00 O2 Sat by Pulse Oximetry (%) 93 L 08/31/18 21:00 GENERAL: A&Ox3, NAD, sitting upright HEAD: NCAT, EYES: PERRL, EOMI, B/L Cataracts EARS, NOSE, THROAT: Oral Thrush, No posterior oropharynx erythema, Moist mucous membranes. NECK: Decreased ROM throughout. Right Posterior paracervical muscles tender to palpation with radiation to the Right arm. CHEST: Right anterior chest tender to palpation inferior to the clavicle and over the right breast tissue laterally LUNGS: Decreased breath sounds at the bases bl, Rales at the basis. HEART: Regular rate and rhythm, normal S1 and S2 without murmur ABDOMEN: Soft, Reducible 2 hernias , nontender, not distended, positive for BS , no guarding EXTREMITIES: 2+ pulses, No peripheral edema. NEUROLOGICAL: Cranial nerves II-XII intact. Normal speech. SKIN: Warm, dry CBCD WBC 5.9 K/mm3 (4.0-10.0) 08/31/18 06:40 RBC 4.05 M/mm3 (3.60-5.2) 08/31/18 06:40 Hgb 11.5 GM/dL (10.7-15.3) 08/31/18 06:40 Hct 34.9 % (32.4-45.2) 08/31/18 06:40 MCV 86.2 fl (80-96) 08/31/18 06:40 MCHC 32.9 g/dl (32.0-36.0) 08/31/18 06:40 RDW 14.9 % (11.6-15.6) 08/31/18 06:40 Plt Count 395 K/MM3 (134-434) 08/31/18 06:40 MPV 7.7 fl (7.5-11.1) 08/31/18 06:40 CMP Sodium 138 mmol/L (136-145) 08/31/18 06:40 Potassium 4.6 mmol/L (3.5-5.1) 08/31/18 06:40 Chloride 103 mmol/L (98-107) 08/31/18 06:40 Carbon Dioxide 27 mmol/L (21-32) 08/31/18 06:40 Anion Gap 8 MMOL/L (8-16) 08/31/18 06:40 BUN 24 mg/dL (7-18) H 08/31/18 06:40 Creatinine 1.9 mg/dL (0.55-1.3) H 08/31/18 06:40 Creat Clearance w eGFR 25.70 (>60) 08/31/18 06:40 Random Glucose 126 mg/dL (74-106) H 08/31/18 06:40 Calcium 9.0 mg/dL (8.5-10.1) 08/31/18 06:40 Total Bilirubin 0.4 mg/dL (0.2-1) 08/31/18 06:40 AST 11 U/L (15-37) L 08/31/18 06:40 ALT 15 U/L (13-61) 08/31/18 06:40 Alkaline Phosphatase 155 U/L (45-117) H 08/31/18 06:40 Total Protein 6.2 g/dl (6.4-8.2) L 08/31/18 06:40 Albumin 2.5 g/dl (3.4-5.0) L 08/31/18 06:40 Current Medications Generic Name Dose Route Start Last Admin Trade Name Freq PRN Reason Stop Dose Admin Acetaminophen 1,000 mg 08/31/18 00:49 Ofirmev Injection - IVPB Q6H PRN PAIN LEVEL 6-10 Albuterol/Ipratropium 1 amp 08/31/18 01:03 Duoneb - NEB Q4H PRN SHORTNESS OF BREATH Heparin Sodium (Porcine) 5,000 unit 08/31/18 06:00 09/01/18 06:24 Heparin - SQ 5,000 unit TID [facility] Administration Miscellaneous 1 each 08/30/18 22:00 09/01/18 06:24 Lidoderm Patch Removal MC 1 each DAILY@2200 [facility] Administration Nystatin 500,000 units 08/31/18 06:00 09/01/18 06:24 Nystatin Oral Suspension - PO 500,000 units Q6HPO [facility] Administration Home Medications Medication Instructions Recorded Allopurinol [Zyloprim -] 100 mg PO DAILY 08/30/18 Amlodipine Besylate [Norvasc -] 10 mg PO DAILY 08/30/18 Benzonatate 100 mg PO TID 08/30/18 Budesonide/Formeterol Fumarate 2 inh PO BID 08/30/18 [SYMBICORT 160/4.5mcg -] Calcium Carbonate/Vitamin D3 2 each PO DAILY 08/30/18 [Calcium 600+D Softgel] Docusate Sodium [Colace] 100 mg PO BID 08/30/18 Levothyroxine [Synthroid -] 75 mcg PO DAILY 08/30/18 Pseudoeph/Dm/Guaifen/Acetamin [Sm 1 each PO ASDIR 08/30/18 Day Time Cold-Flu Rel Sftgl] ASSESSMENT AND PLAN: Patient is a 78 y/o F with HTN, Gout, Asthma, Hypothyroidism, Breast Cancer (+ 10 years, Defferred tx) presented with Neck pain and was found to have left sided pleural effusion. # acute Left side Effusion cannot r/o Malignant with the hx of breast cancer , need therapeutic tap. is consulted Pulmonary consult appreciated. CT Chest is reporting Pneumonia. # Penumonia: will start the patient on Levaquin and flagyl , ID consult appreciated. Consider IR Consult and cytology, Continue Duonebs # Acute over chronic renal failure : US of kidneys no hydro. but has medical renal disease. nephro consult. #Neck Pain: CT Neck with Contrast: No Abscess, Centrilobular emphsyema Flexeril if needed, Continue Ofirmev PRN for pain, Physical Therapy #HTN controlled continue home meds. #Oral Thrush: Nystatin Swish and Swallow #Gout:Stable, continue home meds. #Asthma:Continue Duonebs, Restart home meds #Hypothyroidism: Stable, Will check TSH, Restart home meds #Elevated Alkaline Phosphatase: monitor, need to r/o bone mets. follow bone scan. #PPx:DVT: Heparin TID
[2018-09-01 08:06] LABS: ANION GAP 7 MMOL/L (8-16); BLOOD UREA NITROGEN 36 mg/dL (7-18); CHLORIDE 103 mmol/L (98-107); CO2 29 mmol/L (21-32); CREATININE 2.1 mg/dL (0.55-1.3); GLUCOSE,RANDOM 85 mg/dL (74-106); MAGNESIUM 2.3 mg/dL (1.8-2.4); PHOSPHOROUS 5.3 mg/dL (2.5-4.9); POTASSIUM 4.5 mmol/L (3.5-5.1); SODIUM 139 mmol/L (136-145)
--- NOTE | 2018-09-01 09:21 | PN ---
Physical Exam: SUBJECTIVE: Patient seen and examined at bedside this morning. No overnight events. She denies any acute complaints. OBJECTIVE: Vital Signs Period Temp Pulse Resp BP Sys/Trevino Pulse Ox Last 24 Hr 97.7 F-98.4 F 86-100 18-20 137-154/73-84 93 GENERAL: The patient is awake, alert, and fully oriented, in no acute distress. HEAD: Normocephalic, atraumatic. EYES: PERRL, extraocular movements intact, sclera anicteric. ENT: Oropharynx clear without exudates, moist mucous membranes. NECK: supple without lymphadenopathy LUNGS: Good inspiratory effort. Rhonchi auscultated with faint expiratory wheezes B/l lower lobes. Not using accessory muscles of respiration. HEART: Regular rate and rhythm, S1, S2 without murmur, rub or gallop. BREAST: Right breast indurated greater than left breast. Lesion 2cm X 2cm noted inferior to right nipple. No discharge. (Examined with RN Radha as scallop cutter machine) ABDOMEN: Soft, nontender. Normoactive bowel sounds auscultated X4 quadrants. LLQ , and RLQ ventral hernias appreciated, soft, reducible. NEUROLOGICAL: Cranial nerves II through XII grossly intact. Normal speech. PSYCH: Normal mood, normal affect upon my encounter today. SKIN: Warm, dry. Laboratory Results - last 24 hr 08/30/18 09/01/18 09/01/18 17:30 06:15 06:15 PT with INR 10.60 INR 0.90 PTT (Actin FS) 25.5 Sodium 137 139 Potassium 4.1 4.5 Chloride 101 103 Carbon Dioxide 28 29 Anion Gap 8 7 L BUN 23 H 36 H Creatinine 1.9 H 2.1 H Creat Clearance w eGFR 25.70 22.90 Random Glucose 93 85 Serum Osmolality 285 Calcium 9.0 9.0 Phosphorus 5.3 H Magnesium 2.0 2.3 Total Bilirubin 0.3 AST 18 ALT 18 Alkaline Phosphatase 186 H Total Protein 6.9 Albumin 3.0 L Active Medications Generic Name Dose Route Start Last Admin Trade Name Freq PRN Reason Stop Dose Admin Acetaminophen 1,000 mg 08/31/18 00:49 Ofirmev Injection - IVPB Q6H PRN PAIN LEVEL 6-10 Albuterol/Ipratropium 1 amp 08/31/18 01:03 Duoneb - NEB Q4H PRN SHORTNESS OF BREATH Heparin Sodium (Porcine) 5,000 unit 08/31/18 06:00 09/01/18 06:24 Heparin - SQ 5,000 unit TID KASSIDY Administration Miscellaneous 1 each 08/30/18 22:00 09/01/18 06:24 Lidoderm Patch Removal MC 1 each DAILY@2200 KASSIDY Administration Nystatin 500,000 units 08/31/18 06:00 09/01/18 06:24 Nystatin Oral Suspension - PO 500,000 units Q6HPO KASSIDY Administration ASSESSMENT/PLAN: Patient is a 78 year old female with history of breast cancer (treatment deffered), hypertension, asthma, gout presented with complaint of left sided neck, shoulder pain. Neck pain -Improving. Likely musculoskeletal in etiology. -Acetaminophen 650mg PO Q6H PRN Left pleural effusion -Concern for malignant effusion, given history of untreated breast cancer. -Pulmonology recommendations (Dr. Boone) appreciated. -CT chest concerning for acute pneumonia. Begin Levaquin 750mg IV Q48H (Cr clearance less than 30), Flagyl 500mg IV Q8H -F/U ID consult (Dr. Arroyo) -F/U diagnostic thoracentesis Breast Cancer -Oncology recommendations (Dr. Sherman) appreciated. -F/U bone scan and CT chest. PATY -Unclear etiology. Pending urine omsolality studies -BUN 46/ Cr 2.1 (Cr 1.9 upon admission) -Renal US shows atrophic right kidney, b/l echogenic kidneys without hydronephrosis. -F/U nephrology consult (Dr. Whalen) Asthma -Faint wheezing, however not in acute exacerbation. -Duonebs 1 amp Q4H PRN -Symbicort Hypothyroidism -Synthroid 75mcg PO daily Hypertension -Amlodipine 10mg PO daily Gout -[id number] PO daily Oral thrush -Nystatin Q6H PO FEN -No IV fluids -Follow CMP -Sodium controlled diet. Prophylaxis -Heparin 5000u subq TID Disposition -Continue care in medical surgical floor Visit type - Emergency Visit Emergency Visit: Yes ED Registration Date: 08/30/18 Care time: The patient presented to the Emergency Department on the above date and was hospitalized for further evaluation of their emergent condition. - New Patient This patient is new to me today: Yes Date on this admission: 09/01/18 - Critical Care Critical Care patient: No - Discharge Referral Referred to [facility] Med P.C.: No
--- NOTE | 2018-09-01 11:30 | PN ---
Progress Note (short form) - Note Progress Note: PULMONARY OOB TO WHEELCHAIR ON WAY TO CT CHEST VSS ANICTERIC DIMINISHED BREATH SOUNDS S1S2 BS+ NO EDEMA LABS/MICRO/NOTES/IMAGES/MEDS REVIEWED P LLL CONSOLIDATION/EFFUSION ?PNEUMONIA,? MALIGNANT ASTHMA ? H/O BREAST CA PATY ASTHMA GOUT PLAN IV ABX CULTURES INHALED BRONCHODILATORS IVF CHECK CHEST CT DIAGNOSTIC THORACENTESIS MONITOR LYTES,RENAL FUNCTION URINARY ANTIGENS Mike RODRIGUES MD
[2018-09-01] MEDS: ALBUTEROL SO4 2.5/IPRATROPIUM 0.5 INH SOL 3 ML VIAL.NEB. NEB PRN ×2 (16:01→20:25)
[2018-09-01] MEDS: amLODIPine BESYLATE 10 MG TABLET (FP) PO SCH (16:36)
[2018-09-01] MEDS ORDERED: ACETAMINOPHEN 325 MG TABLET (FP) PO PRN (16:40)
[2018-09-01] MEDS: DOCUSATE SODIUM 100 MG CAPSULE (FP) PO SCH (22:48)
[2018-09-02] MEDS: LEVOTHYROXINE NA 75 MCG TABLET (FP) PO SCH (06:11)
[2018-09-02] MEDS: NYSTATIN 500,000 UNITS/5 ML SUSPENSION PO SCH ×4 (06:11→23:35)
[2018-09-02] MEDS: HEPARIN NA (PORCINE) 5,000 UNITS/ML 1ML VIAL SQ SCH ×3 (06:11→21:28)
[2018-09-02 06:55] LABS: HEMATOCRIT 33.7 % (32.4-45.2); MCH 28.3 pg (25.7-33.7); MCHC 32.5 g/dl (32.0-36.0); MEAN CELL VOLUME 87.1 fl (80-96); MEAN PLT VOLUME 7.9 fl (7.5-11.1); PLATELET COUNT 406 K/MM3 (134-434); RBC 3.88 M/mm3 (3.60-5.2); RDW 15.2 % (11.6-15.6); WHITE BLOOD COUNT 10.5 K/mm3 (4.0-10.0)
[2018-09-02 07:23] LABS: ALBUMIN 2.6 g/dl (3.4-5.0); ALK PHOS 108 U/L (45-117); ANION GAP 7 MMOL/L (8-16); BILIRUBIN,TOTAL 0.4 mg/dL (0.2-1); BLOOD UREA NITROGEN 43 mg/dL (7-18); CALCIUM 8.3 mg/dL (8.5-10.1); CHLORIDE 105 mmol/L (98-107); CO2 29 mmol/L (21-32); CREATININE 2.1 mg/dL (0.55-1.3); GLUCOSE,RANDOM 81 mg/dL (74-106); MAGNESIUM 1.9 mg/dL (1.8-2.4); PHOSPHOROUS 3.8 mg/dL (2.5-4.9); POTASSIUM 4.1 mmol/L (3.5-5.1); SGOT/AST 14 U/L (15-37); SGPT/ALT 15 U/L (13-61); SODIUM 140 mmol/L (136-145); TOT PROT 5.9 g/dl (6.4-8.2)
[2018-09-02] MEDS: DOCUSATE SODIUM 100 MG CAPSULE (FP) PO SCH ×2 (09:09→22:01)
[2018-09-02] MEDS: ALLOPURINOL 100 MG TABLET (FP) PO SCH (09:10)
[2018-09-02] MEDS: CALCIUM 500MG/VIT-D 200 UNITS COMBO TABLET (FP) PO SCH (09:10)
[2018-09-02] MEDS: amLODIPine BESYLATE 10 MG TABLET (FP) PO SCH (09:10)
--- NOTE | 2018-09-02 09:11 | PN ---
Progress Note (short form) - Note Progress Note: ID consult dictated imp/rccd left pleural effussion/infiltrate ceftin allergy- records list penicillin too right breast mass active smoker ckd no history of TB or TB exposure agree with thoracentesis either a partially treated pneumonia with parapneumonic effusion- apparently was prescribed po antibiotics at [facility] or malignancy continue levaquin adjusted for CKD can d/c flagyl, nothing to suggest aspiration at this time urinary antigens for pneumonia Problem List - Problems (1) Pleural effusion Code(s): J90 - PLEURAL EFFUSION, NOT ELSEWHERE CLASSIFIED (2) Pneumonia Code(s): J18.9 - PNEUMONIA, UNSPECIFIED ORGANISM (3) Breast mass, right Code(s): N63.10 - UNSPECIFIED LUMP IN THE RIGHT BREAST, UNSPECIFIED QUADRANT (4) CKD (chronic kidney disease) Code(s): N18.9 - CHRONIC KIDNEY DISEASE, UNSPECIFIED (5) Allergy to multiple antibiotics Code(s): Z88.1 - ALLERGY STATUS TO OTHER ANTIBIOTIC AGENTS STATUS
--- NOTE | 2018-09-02 10:20 | CONS ---
INFECTIOUS DISEASE CONSULTATION DATE OF CONSULTATION: DATE OF DICTATION: 09/02/2018 REQUESTED BY: The hospitalist service. HISTORY OF PRESENT ILLNESS: This is a 78-year-old woman. She has been residing since July 2015 at [facility]. She presented with neck pain. She was seen in the emergency room at [facility] where she was treated for a URI and cough. She does not recall having a chest x-ray there, but she also does not recall what antibiotic she was given though she does say that she took something. On August 30, she comes to the ER at [facility] with complaint of neck pain. She underwent imaging of her neck that was unremarkable, except for DJD. She had a CAT scan of her chest done that showed a left-sided effusion with infiltrate. I am asked to see her for antibiotic recommendation. She was started on Levaquin and Flagyl yesterday. She denies any fevers or chills. She notes she has a cough. She is an active smoker. She has been smoking for years. She notes she has a right breast mass as well for years. She denies ever having had it biopsied. She reports having a history of allergy to CEFTIN. She is unaware of the nature of the allergy. Per the records sent from [facility], she is allergic to PENICILLIN and CITRUS FRUITS, as well. PAST MEDICAL HISTORY: Is notable for COPD, dementia, chronic kidney disease. She suffers from constipation, anemia, hypertension, GERD, hyperlipidemia, depression, gout, hypothyroidism. She has a breast mass. She has had abdominal hernia surgery at least twice. MEDICATIONS: At the longterm include Symbicort, allopurinol, amlodipine, calcium carbonate, Colace, levothyroxine. SOCIAL HISTORY: She is . She reports having 2 daughters who live in [facility]. She has been in no contact she reports with her children. They are unaware she is in the hospital. She is an active smoker. 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 There is no history of any alcohol or substance use. She ambulates with a walker and she resides at the [facility]. REVIEW OF SYSTEMS: Is notable for this cough. Her neck pain is improved. She has no trouble swallowing. She notes chronic constipation. PHYSICAL EXAMINATION: General: She is awake and alert. Vital Signs: She has had no fever. Her temperature is 98.3, pulse of 86, blood pressure 158/81, respiratory rate is 20. She is saturating 94% on 3 L. HEENT: She is normocephalic. Her eyes are anicteric. Neck: Supple. Lungs: She has diminished breath sounds at the left base. Heart: Regular rate and rhythm. Abdomen: Soft. She has multiple, healed surgical incisions. Extremities: Without edema. LABORATORIES: Are notable for a white count on admission was 8.6, today it is 10.5, hemoglobin 11, platelets are 406, INR is 0.9, BUN and creatinine are 43 and 2.1 with normal LFTs and an albumin of 2.6. Influenza screen is negative, as well as group A strep. Throat culture is negative. Blood cultures are negative. Legionella urinary antigen is pending. IMAGING: CAT scan of the chest was done yesterday and is notable for dense consolidation within the lingula of the left upper lobe. She has a moderate left pleural effusion with consolidation, atelectasis of the left lower lobe, moderate COPD, mild mediastinal adenopathy. In summary, this is a 78-year-old woman admitted from assisted living who has just recently finished a course of antibiotics with a left-sided effusion, infiltrate, CEFTIN allergy, PENICILLIN per her records, right breast mass and has never been biopsied, active smoker, with CKD. She has a very strong family history of malignancy in her family, as well, breast cancer and lung cancer. She would agree with thoracentesis. This is either a partially-treated pneumonia with a parapneumonic effusion given the prior oral antibiotic or a malignancy. Would continue Levaquin. Can stop her Flagyl. There is no history of any vomiting or loss of consciousness to suggest aspiration. Would follow up urinary antigens for pneumonia. Further recommendations to follow. Marilin TAMAYO/[id number]
--- NOTE | 2018-09-02 10:25 | CONSULT ---
Consultation: REQUESTING PROVIDER: CONSULT REQUEST: We have been asked to medically evaluate this patient for PATY. HISTORY OF PRESENT ILLNESS: Ms Taylor is a 78 y/o F with PMH HTN, gout, asthma, breast CA, remote VA, b/l cataracts who presented to ED with complaint of neck pain lasting 4 days. She denies use of NSAIDS. She states the pain begins in her upper back on the left and radiates to the back of her neck. She denies, bloody/dark urine, flank pain, pain on urination, urinary frequency , and NSAID use. No other complaints. Surgical history significant for hernia repair. Denies FH. Chart review significant for multiple relatives with cancer including 3 brothers and a sister. She is a current smoker. She smokes 5 cig daily and has been smoking for 50 yrs. She denies alcohol/drug use, though chart reflects EtOH abuse in the past. REVIEW OF SYSTEMS: CONSTITUTIONAL: Absent: fever, chills, diaphoresis, generalized weakness, malaise, loss of appetite, weight change HEENT: Absent: rhinorrhea, nasal congestion, throat pain, throat swelling, difficulty swallowing, mouth swelling, ear pain, eye pain, visual changes CARDIOVASCULAR: Absent: chest pain, syncope, palpitations, irregular heart rate, lightheadedness , peripheral edema RESPIRATORY: Absent: cough, shortness of breath, dyspnea with exertion, orthopnea, wheezing, stridor, hemoptysis GASTROINTESTINAL: Absent: abdominal pain, abdominal distension, nausea, vomiting, diarrhea, constipation, melena, hematochezia GENITOURINARY: Absent: dysuria, frequency, urgency, hesitancy, hematuria, flank pain, genital pain MUSCULOSKELETAL: back pain, neck pain Absent: myalgia, arthralgia, joint swelling, SKIN: Absent: rash, itching, pallor HEMATOLOGIC/IMMUNOLOGIC: Absent: easy bleeding, easy bruising, lymphadenopathy, frequent infections ENDOCRINE: Absent: unexplained weight gain, unexplained weight loss, heat intolerance, cold intolerance NEUROLOGIC: Absent: headache, focal weakness or paresthesias, dizziness, unsteady gait, seizure, mental status changes, bladder or bowel incontinence PSYCHIATRIC: Absent: anxiety, depression, suicidal or homicidal ideation, hallucinations. PHYSICAL EXAMINATION Vital Signs - 24 hr 09/01/18 09/01/18 09/01/18 13:13 17:40 21:00 Temperature 97.8 F 97.3 F L 97.9 F Pulse Rate 90 84 88 Respiratory 20 20 20 Rate Blood Pressure 157/76 153/77 149/79 O2 Sat by Pulse 94 L Oximetry (%) 09/02/18 09/02/18 05:00 09:00 Temperature 98.3 F 97.6 F Pulse Rate 86 81 Respiratory 20 20 Rate Blood Pressure 158/81 176/77 H O2 Sat by Pulse 94 L Oximetry (%) Gen: NAD HEENT: NCAT, EOMI Neck: mild ttp left neck Cardio: rrr, normal s1s2, no murmurs/rubs/gallops appreciated Pulm: decreased breath sounds L Abd: nondistended, normal bs, soft nontender Ext: 2+ pulses no edema Laboratory Results - last 24 hr 09/02/18 09/02/18 05:15 05:15 WBC 10.5 H RBC 3.88 Hgb 11.0 Hct 33.7 MCV 87.1 MCH 28.3 MCHC 32.5 RDW 15.2 Plt Count 406 MPV 7.9 Sodium 140 Potassium 4.1 Chloride 105 Carbon Dioxide 29 Anion Gap 7 L BUN 43 H Creatinine 2.1 H Creat Clearance w eGFR 22.90 Random Glucose 81 Calcium 8.3 L Phosphorus 3.8 Magnesium 1.9 Total Bilirubin 0.4 AST 14 L ALT 15 Alkaline Phosphatase 108 Total Protein 5.9 L Albumin 2.6 L Active Medications Generic Name Dose Route Start Last Admin Trade Name Freq PRN Reason Stop Dose Admin Acetaminophen 650 mg 09/01/18 16:40 Tylenol - PO Q6H PRN PAIN OR FEVER Albuterol/Ipratropium 1 amp 08/31/18 01:03 09/01/18 20:25 Duoneb - NEB 1 amp Q4H PRN Administration SHORTNESS OF BREATH Allopurinol 100 mg 09/02/18 10:00 09/02/18 09:10 Zyloprim - PO 100 mg DAILY KASSIDY Administration Amlodipine Besylate 10 mg 09/01/18 15:45 09/02/18 09:10 Norvasc - PO 10 mg DAILY KASSIDY Administration Calcium Carbonate/Cholecalciferol 2 tab 09/02/18 10:00 09/02/18 09:10 Os-Kip 500+D - PO 2 tab DAILY KASSIDY Administration Docusate Sodium 100 mg 09/01/18 22:00 09/02/18 09:09 Colace - PO 100 mg BID KASSIDY Administration Heparin Sodium (Porcine) 5,000 unit 08/31/18 06:00 09/02/18 06:11 Heparin - SQ 5,000 unit TID KASSIDY Administration Levofloxacin 750 mg in 150 mls @ 100 mls/hr 09/01/18 17:00 09/01/18 18:02 Levaquin 750 Mg Premixed Ivpb - IVPB 100 mls/hr Q48H KASSIDY Administration Protocol Levothyroxine Sodium 75 mcg 09/02/18 07:00 09/02/18 06:11 Synthroid - PO 75 mcg DAILY@0700 KASSIDY Administration Miscellaneous 1 each 08/30/18 22:00 09/01/18 22:49 Lidoderm Patch Removal MC Not Given DAILY@2200 [facility] Nystatin 500,000 units 08/31/18 06:00 09/02/18 06:11 Nystatin Oral Suspension - PO 500,000 units Q6HPO KASSIDY Administration ASSESSMENT/PLAN: Pt is a 78 y/o F with multiple medical problems who presented to ED from [facility] for neck pain. Creatinine was found to be elevated without baseline for comparison. Nephrology was called to evaluate for PATY. #PATY vs CKD -? duration (no baseline) Chart reveals hist CKD. Multiple calls placed to [facility] and PCPs office. PCP was unreachable as of yet to establish baseline Property Utilization Officer. -no evidence of hypoperfusion or obstruction -long standing history of HTN -ensure adequate hydration -monitor Property Utilization Officer #HTN -c/w norvasc #Gout -hold NSAIDs in setting of possible PATY #Asthma -c/w duonebs #Breast CA -Heme/Onc on board -pt evidently does not want any treatment #prior [facility] -rec out pt f/u. Not on ASA Dispo: We will continue to follow the patient. Thank you for this consultative opportunity. Ariel Marti MD PGY2 IM - Nephrology Visit type - Emergency Visit Emergency Visit: No - New Patient This patient is new to me today: Yes Date on this admission: 09/02/18 - Critical Care Critical Care patient: No
--- NOTE | 2018-09-02 11:47 | PN ---
Progress Note (short form) - Note Progress Note: PULMONARY Breathing slightly improved. +nonproductive cough. No fevers. CT chest done yesterday showing lingular consolidation and left effusion. Vital Signs Period Temp Pulse Resp BP Sys/Trevino Pulse Ox Last 24 Hr 97.3 F-98.3 F 81-90 20-20 149-176/76-81 94-94 Gen: mildly tachypneic with speaking Heart: RRR Lung: scattered rhonchi, wheezes Abd: soft, nontender Ext: no edema CBC, BMP 09/02/18 05:15 09/02/18 05:15 Active Medications Acetaminophen (Tylenol -) 650 mg PO Q6H PRN PRN Reason: PAIN OR FEVER Albuterol/Ipratropium (Duoneb -) 1 amp NEB Q4H PRN PRN Reason: SHORTNESS OF BREATH Last Admin: 09/01/18 20:25 Dose: 1 amp Allopurinol (Zyloprim -) 100 mg PO DAILY [facility] Last Admin: 09/02/18 09:10 Dose: 100 mg Amlodipine Besylate (Norvasc -) 10 mg PO DAILY [facility] Last Admin: 09/02/18 09:10 Dose: 10 mg Calcium Carbonate/Cholecalciferol (Os-Kip 500+D -) 2 tab PO DAILY [facility] Last Admin: 09/02/18 09:10 Dose: 2 tab Docusate Sodium (Colace -) 100 mg PO BID [facility] Last Admin: 09/02/18 09:09 Dose: 100 mg Heparin Sodium (Porcine) (Heparin -) 5,000 unit SQ TID [facility] Last Admin: 09/02/18 06:11 Dose: 5,000 unit Levofloxacin (Levaquin 750 Mg Premixed Ivpb -) 750 mg in 150 mls @ 100 mls/hr IVPB Q48H [facility]; Protocol Last Admin: 09/01/18 18:02 Dose: 100 mls/hr Levothyroxine Sodium (Synthroid -) 75 mcg PO DAILY@0700 [facility] Last Admin: 09/02/18 06:11 Dose: 75 mcg Miscellaneous (Lidoderm Patch Removal) 1 each MC DAILY@2200 [facility] Last Admin: 09/01/18 22:49 Dose: Not Given Nystatin (Nystatin Oral Suspension -) 500,000 units PO Q6HPO [facility] Last Admin: 09/02/18 06:11 Dose: 500,000 units A/P Lingular consolidation - r/o Pneumonia Left Pleural Effusion h/o Breast Ca Acute Kidney Injury Acute Asthma Exacerbation Hypothyroidism - agree with diagnostic thoracentesis - continue antibiotics - f/u cultures - will change inhaled bronchodilators to standing and PRN - if wheezing persists, will consider short course of steroids - DVT prophylaxis
[2018-09-02] MEDS ORDERED: ALBUTEROL SO4 0.083% IH SOL 2.5 MG/3 ML VIAL.NEB. NEB PRN (11:48)
[2018-09-02 12:26] VITALS: BMI 24.3
--- NOTE | 2018-09-02 13:40 | PN ---
Teaching Attending Note Name of Resident: Ariel Marti (Nephrology) ATTENDING PHYSICIAN STATEMENT I saw and evaluated the patient. I reviewed the resident's note and discussed the case with the resident. I agree with the resident's findings and plan as documented. Renal Consult Pt is a 78 year old female with pmhx of HTN, gout, asthma, breast cancer and liver disease who presents with chest pain. She was found to have renal failure and I was called to evaluate her. She denies history of CKD. She denies dysuria or hematuria. She denies nsaid use. pmhx breast cancer htn gout hypothyroidism allergies citrus cufuroxime pcn social hx denies ros neck pain fam hx denies Current Medications Generic Name Dose Route Start Last Admin Trade Name Freq PRN Reason Stop Dose Admin Acetaminophen 650 mg 09/01/18 16:40 Tylenol - PO Q6H PRN PAIN OR FEVER Albuterol Sulfate 1 amp 09/02/18 11:48 Ventolin 0.083% Nebulizer Soln - NEB Q4H PRN SHORT OF BREATH/WHEEZING Albuterol/Ipratropium 1 amp 09/02/18 12:00 Duoneb - NEB RQID KASSIDY Allopurinol 100 mg 09/02/18 10:00 09/02/18 09:10 Zyloprim - PO 100 mg DAILY KASSIDY Administration Amlodipine Besylate 10 mg 09/01/18 15:45 09/02/18 09:10 Norvasc - PO 10 mg DAILY KASSIDY Administration Calcium Carbonate/Cholecalciferol 2 tab 09/02/18 10:00 09/02/18 09:10 Os-Kip 500+D - PO 2 tab DAILY AKSSIDY Administration Docusate Sodium 100 mg 09/01/18 22:00 09/02/18 09:09 Colace - PO 100 mg BID KASSIDY Administration Heparin Sodium (Porcine) 5,000 unit 08/31/18 06:00 09/02/18 13:33 Heparin - SQ 5,000 unit TID KASSIDY Administration Levofloxacin 750 mg in 150 mls @ 100 mls/hr 09/01/18 17:00 09/01/18 18:02 Levaquin 750 Mg Premixed Ivpb - IVPB 100 mls/hr Q48H KASSIDY Administration Protocol Levothyroxine Sodium 75 mcg 09/02/18 07:00 09/02/18 06:11 Synthroid - PO 75 mcg DAILY@0700 KASSIDY Administration Nystatin 500,000 units 08/31/18 06:00 09/02/18 12:00 Nystatin Oral Suspension - PO 500,000 units Q6HPO KASSIDY Administration Last Vital Signs Temp Pulse Resp BP Pulse Ox 97.8 F 87 20 160/72 94 L 09/02/18 13:35 09/02/18 13:35 09/02/18 13:35 09/02/18 13:35 09/02/18 09:00 Laboratory Tests 08/30/18 08/31/18 09/01/18 17:40 06:40 06:15 WBC Creatinine 1.9 H 2.1 H Influenza A (Rapid) Negative Influenza B (Rapid) Negative 09/02/18 09/02/18 05:15 05:15 WBC 10.5 H Creatinine 2.1 H Influenza A (Rapid) Influenza B (Rapid) cardio s1s2 pulm breath sounds, wheeze gi soft ext neg edema neuro awake and alert Impression' 1.PATY vs CKD 2. hypothyroidism 3. breast cancer 4. pleural effusion 5. gout 6. asthma 7. liver disease Plan - obtain outpt labs - check ua and urine lytes - atrophic kidney on ultrasound - will send preslim renal workup - will follow Dr Whalen
--- NOTE | 2018-09-02 13:57 | PN ---
Physical Exam: SUBJECTIVE: Patient seen and examined this AM. She states she is doing better than on admission. She is for thoracentesis today with IR. OBJECTIVE: Vital Signs Period Temp Pulse Resp BP Sys/Trevino Pulse Ox Last 24 Hr 97.3 F-98.3 F 81-88 20-20 149-176/72-81 94-94 GENERAL: A&O, no acute distress HEAD: Normocephalic, atraumatic. EYES: PERRL, no scleral icterus EARS, NOSE, THROAT: oropharynx clear without exudates. Moist mucous membranes. NECK: supple without lymphadenopathy LUNGS: wheezes bilaterally, crackles at the bases, decreased air entry in left base HEART: Regular rate and rhythm, normal S1 and S2 without murmur ABDOMEN: Soft, nontender to palpation, normoactive bowel sounds MUSCULOSKELETAL: some tenderness to palpation on the left posterior neck and shoulder musculature, no palpable masses or abscesses EXTREMITIES: 2+ pulses, warm, well-perfused. No peripheral edema. 4/5 strength on the left, otherwise normal exam. NEUROLOGICAL: Cranial nerves II-XII grossly intact. Normal speech. PSYCHIATRIC: Cooperative. Good eye contact. Appropriate mood and affect. SKIN: Warm, dry, no rashes or lesions noted Laboratory Results - last 24 hr 09/02/18 09/02/18 05:15 05:15 WBC 10.5 H RBC 3.88 Hgb 11.0 Hct 33.7 MCV 87.1 MCH 28.3 MCHC 32.5 RDW 15.2 Plt Count 406 MPV 7.9 Sodium 140 Potassium 4.1 Chloride 105 Carbon Dioxide 29 Anion Gap 7 L BUN 43 H Creatinine 2.1 H Creat Clearance w eGFR 22.90 Random Glucose 81 Calcium 8.3 L Phosphorus 3.8 Magnesium 1.9 Total Bilirubin 0.4 AST 14 L ALT 15 Alkaline Phosphatase 108 Total Protein 5.9 L Albumin 2.6 L Active Medications Generic Name Dose Route Start Last Admin Trade Name Freq PRN Reason Stop Dose Admin Acetaminophen 650 mg 09/01/18 16:40 Tylenol - PO Q6H PRN PAIN OR FEVER Albuterol Sulfate 1 amp 09/02/18 11:48 Ventolin 0.083% Nebulizer Soln - NEB Q4H PRN SHORT OF BREATH/WHEEZING Albuterol/Ipratropium 1 amp 09/02/18 12:00 Duoneb - NEB RQID KASSIDY Allopurinol 100 mg 09/02/18 10:00 09/02/18 09:10 Zyloprim - PO 100 mg DAILY KASSIDY Administration Amlodipine Besylate 10 mg 09/01/18 15:45 09/02/18 09:10 Norvasc - PO 10 mg DAILY KASSIDY Administration Calcium Carbonate/Cholecalciferol 2 tab 09/02/18 10:00 09/02/18 09:10 Os-Kip 500+D - PO 2 tab DAILY KASSIDY Administration Docusate Sodium 100 mg 09/01/18 22:00 09/02/18 09:09 Colace - PO 100 mg BID KASSIDY Administration Heparin Sodium (Porcine) 5,000 unit 08/31/18 06:00 09/02/18 13:33 Heparin - SQ 5,000 unit TID KASSIDY Administration Levofloxacin 750 mg in 150 mls @ 100 mls/hr 09/01/18 17:00 09/01/18 18:02 Levaquin 750 Mg Premixed Ivpb - IVPB 100 mls/hr Q48H KASSIDY Administration Protocol Levothyroxine Sodium 75 mcg 09/02/18 07:00 09/02/18 06:11 Synthroid - PO 75 mcg DAILY@0700 KASSIDY Administration Nystatin 500,000 units 08/31/18 06:00 09/02/18 12:00 Nystatin Oral Suspension - PO 500,000 units Q6HPO KASSIDY Administration ASSESSMENT/PLAN: 78 y/o F with HTN, Gout, Asthma, Hypothyroidism, Breast Cancer (+10 years, Defferred tx) was brought from [facility] with Neck pain Left Sided Pleural Effusion with consolidation -CXR noted with significant left sided effusion vs infiltrate -With history of untreated malignancy could be a malignant effusion -Consult pulmonology -For IR percutaneous thoracentesis - could not be completed today as pt received heparin, hold heparin tomorrow morning -Send fluid for analysis -CT noted with effusion and consolidation -Levaquin renally dosed -ID consult appreciated, d/c flagyl Hx untreated breast CA -Heme/Onc consulted -Bone scan noted without any bony mets Neck Pain -Improving -Likely musculoskeletal in nature -CT without any signs of mass/abscess collection PATY vs CKD -BUN/Cr 24/1.9, will attempt to determine if this is her baseline or new PATY -Urine Osms/Lytes pending -Renal US with atrophic right kidney, b/l echogenic kidneys, no signs of hydro -Trend BMP -Nephrology consult appreciated -UA and lytes pending HTN -Norvasc Oral Thrush -Nystatin swish and swallow Asthma -DuoNebs PRN -Continue home Symbicort DVT Prophylaxis -Heparin 5000 units SQ TID FEN -Fluids: none -Electrolytes: No electrolyte abnormalities, BMP in AM -Nutrition: Na Controlled diet Disposition Med/Surg Visit type - Emergency Visit Emergency Visit: Yes ED Registration Date: 08/30/18 Care time: The patient presented to the Emergency Department on the above date and was hospitalized for further evaluation of their emergent condition. - New Patient This patient is new to me today: No - Critical Care Critical Care patient: No
[2018-09-02] MEDS: ALBUTEROL SO4 2.5/IPRATROPIUM 0.5 INH SOL 3 ML VIAL.NEB. NEB SCH ×2 (16:15→21:00)
--- NOTE | 2018-09-02 16:27 | PN ---
Teaching Attending Note Name of Resident: Lucio Oneill ATTENDING PHYSICIAN STATEMENT I saw and evaluated the patient. I reviewed the resident's note and discussed the case with the resident. I agree with the resident's findings and plan as documented. SUBJECTIVE: Still feels SOB with cough. No chest pain. No fever/chills. OBJECTIVE: Afebrile, Hemodynamically Stable. SpO2 97% on 3L. Last Vital Signs Temp Pulse Resp BP Pulse Ox 97.8 F 87 20 160/72 94 L 09/02/18 13:35 09/02/18 13:35 09/02/18 13:35 09/02/18 13:35 09/02/18 09:00 HEENT - Afebrile, Hemodynamically Stable Heart - S1, S2, RRR Lungs - Bilateral wheeze, bibasal crackles, reduced air entry Left base with dullness to percussion. Abdomen - soft, non-tender. Extremities - no calf swelling/tenderness. No edema. Laboratory Results - last 24 hr 09/02/18 09/02/18 05:15 05:15 WBC 10.5 H RBC 3.88 Hgb 11.0 Hct 33.7 MCV 87.1 MCH 28.3 MCHC 32.5 RDW 15.2 Plt Count 406 MPV 7.9 Sodium 140 Potassium 4.1 Chloride 105 Carbon Dioxide 29 Anion Gap 7 L BUN 43 H Creatinine 2.1 H Creat Clearance w eGFR 22.90 Random Glucose 81 Calcium 8.3 L Phosphorus 3.8 Magnesium 1.9 Total Bilirubin 0.4 AST 14 L ALT 15 Alkaline Phosphatase 108 Total Protein 5.9 L Albumin 2.6 L Current Medications Generic Name Dose Route Start Last Admin Trade Name Freq PRN Reason Stop Dose Admin Acetaminophen 650 mg 09/01/18 16:40 Tylenol - PO Q6H PRN PAIN OR FEVER Albuterol Sulfate 1 amp 09/02/18 11:48 Ventolin 0.083% Nebulizer Soln - NEB Q4H PRN SHORT OF BREATH/WHEEZING Albuterol/Ipratropium 1 amp 09/02/18 12:00 Duoneb - NEB RQID KASSIDY Allopurinol 100 mg 09/02/18 10:00 09/02/18 09:10 Zyloprim - PO 100 mg DAILY KASSIDY Administration Amlodipine Besylate 10 mg 09/01/18 15:45 09/02/18 09:10 Norvasc - PO 10 mg DAILY KASSIDY Administration Calcium Carbonate/Cholecalciferol 2 tab 09/02/18 10:00 09/02/18 09:10 Os-Kip 500+D - PO 2 tab DAILY KASSIDY Administration Docusate Sodium 100 mg 09/01/18 22:00 09/02/18 09:09 Colace - PO 100 mg BID KASSIDY Administration Heparin Sodium (Porcine) 5,000 unit 08/31/18 06:00 09/02/18 13:33 Heparin - SQ 5,000 unit TID KASSIDY Administration Levofloxacin 750 mg in 150 mls @ 100 mls/hr 09/01/18 17:00 09/01/18 18:02 Levaquin 750 Mg Premixed Ivpb - IVPB 100 mls/hr Q48H KASSIDY Administration Protocol Levothyroxine Sodium 75 mcg 09/02/18 07:00 09/02/18 06:11 Synthroid - PO 75 mcg DAILY@0700 KASSIDY Administration Nystatin 500,000 units 08/31/18 06:00 09/02/18 12:00 Nystatin Oral Suspension - PO 500,000 units Q6HPO KASSIDY Administration ASSESSMENT AND PLAN: 78 year old female with HTN, Gout, Asthma, Hypothyroidism, History of Breast Ca (>10 years ago), presented with L sided back/neck pain, admitted with L sided pneumonia with L pleural effusion. 1. IRENE Pneumonia with L effusion with COPD exacerbation (bilateral wheeze) Afebrile, Hemodynamically stable. Wean off supplemental O2. Continue regular Bronchodilatory Nebs. If no improvement s/p thoracentesis, will consider adding steroid. Continue Levofloxaicn (Flagyl dicontinued) ID and Pulm following Scheduled to have Thoracentesis today but cancelled as patient received Heparin SQ. 2. History of Breast Ca (>10 years ago) - NM scan shows no bone mets, DJD spine and wrists, severely atrophic R kidney. 3. PATY on CKD 3 - Renal US shows chronic renal disease, no hydronephrosis. Nephrology consult appreciated. 4. Chronic Neck Pain - likely musculoskeletal. CT Neck with Contrast: No Abscess, Centrilobular emphsyema Continue Flexeril prn. 5. HTN - controlled. Continue Norvasc 6. Oral Thrush - continue Nystatin Swish and Swallow 7. Gout - stable. Continue Allopurinol. 8. Hypothyroidism - continue Levothyroxine. DVT Px - Heparin SQ
--- NOTE | 2018-09-02 18:00 | EKG ---
Test Reason : Blood Pressure : / mmHG Vent. Rate : 089 BPM Atrial Rate : 089 BPM P-R Int : 244 ms QRS Dur : 158 ms QT Int : 400 ms P-R-T Axes : 063 -85 012 degrees QTc Int : 486 ms SINUS RHYTHM WITH 1ST DEGREE A-V BLOCK LEFT AXIS DEVIATION RIGHT BUNDLE BRANCH BLOCK ABNORMAL ECG NO PREVIOUS ECGS AVAILABLE PATIENT SITTING UP IN BED DURING EKG DUE TO BREATHING DIFFICULTY Confirmed by TIARA SONG, CAROLINA ([id number]) on 09/02/2018 6:00:29 PM Referred By: Alfonso RAMOS Confirmed By:CAROLINA MENJIVAR MD
[2018-09-03] MEDS: NYSTATIN 500,000 UNITS/5 ML SUSPENSION PO SCH ×3 (06:15→17:42)
[2018-09-03] MEDS: LEVOTHYROXINE NA 75 MCG TABLET (FP) PO SCH (06:15)
[2018-09-03 06:30] LABS: HEMOGLOBIN 11.9 GM/dL (10.7-15.3); MCHC 32.3 g/dl (32.0-36.0); MEAN CELL VOLUME 86.8 fl (80-96); PLATELET COUNT 423 K/MM3 (134-434); RBC 4.26 M/mm3 (3.60-5.2); RDW 14.6 % (11.6-15.6); WHITE BLOOD COUNT 9.4 K/mm3 (4.0-10.0)
[2018-09-03 06:47] LABS: ANION GAP 7 MMOL/L (8-16); BLOOD UREA NITROGEN 36 mg/dL (7-18); CALCIUM 8.5 mg/dL (8.5-10.1); CHLORIDE 102 mmol/L (98-107); CO2 30 mmol/L (21-32); GLUCOSE,RANDOM 83 mg/dL (74-106); LDH 187 U/L (84-246); MAGNESIUM 2.1 mg/dL (1.8-2.4); PHOSPHOROUS 4.2 mg/dL (2.5-4.9); POTASSIUM 4.1 mmol/L (3.5-5.1); SODIUM 138 mmol/L (136-145)
[2018-09-03] MEDS: ALBUTEROL SO4 2.5/IPRATROPIUM 0.5 INH SOL 3 ML VIAL.NEB. NEB SCH ×4 (07:15→21:17)
--- NOTE | 2018-09-03 07:56 | PN ---
Physical Exam: SUBJECTIVE: Patient seen and examined this AM. She states she is a little better than yesterday, however she is very tired. She states also that she has not been sleeping very well. OBJECTIVE: Vital Signs Period Temp Pulse Resp BP Sys/Trevino Pulse Ox Last 24 Hr 97.5 F-98.4 F 81-92 20-29 150-176/63-88 94-94 GENERAL: A&O, no acute distress HEAD: Normocephalic, atraumatic. EYES: PERRL, no scleral icterus EARS, NOSE, THROAT: oropharynx clear without exudates. Moist mucous membranes. NECK: supple without lymphadenopathy LUNGS: wheezes bilaterally, crackles at the bases, decreased air entry in left base HEART: Regular rate and rhythm, normal S1 and S2 without murmur ABDOMEN: Soft, nontender to palpation, normoactive bowel sounds MUSCULOSKELETAL: some tenderness to palpation on the left posterior neck and shoulder musculature, no palpable masses or abscesses EXTREMITIES: 2+ pulses, warm, well-perfused. No peripheral edema. 5/5 strength on the left, otherwise normal exam. NEUROLOGICAL: Cranial nerves II-XII grossly intact. Normal speech. SKIN: Warm, dry, no rashes or lesions noted Laboratory Results - last 24 hr 09/03/18 09/03/18 05:00 05:00 WBC 9.4 RBC 4.26 Hgb 11.9 Hct 37.0 MCV 86.8 MCH 28.0 MCHC 32.3 RDW 14.6 Plt Count 423 MPV 8.0 Sodium 138 Potassium 4.1 Chloride 102 Carbon Dioxide 30 Anion Gap 7 L BUN 36 H Creatinine 2.0 H Creat Clearance w eGFR 24.22 Random Glucose 83 Calcium 8.5 Phosphorus 4.2 Magnesium 2.1 LD Total 187 Active Medications Generic Name Dose Route Start Last Admin Trade Name Freq PRN Reason Stop Dose Admin Acetaminophen 650 mg 09/01/18 16:40 Tylenol - PO Q6H PRN PAIN OR FEVER Albuterol Sulfate 1 amp 09/02/18 11:48 Ventolin 0.083% Nebulizer Soln - NEB Q4H PRN SHORT OF BREATH/WHEEZING Albuterol/Ipratropium 1 amp 09/02/18 12:00 09/02/18 21:00 Duoneb - NEB 1 amp RQID KASSIDY Administration Allopurinol 100 mg 09/02/18 10:00 09/02/18 09:10 Zyloprim - PO 100 mg DAILY KASSIDY Administration Amlodipine Besylate 10 mg 09/01/18 15:45 09/02/18 09:10 Norvasc - PO 10 mg DAILY KASSIDY Administration Calcium Carbonate/Cholecalciferol 2 tab 09/02/18 10:00 09/02/18 09:10 Os-Kip 500+D - PO 2 tab DAILY KASSIDY Administration Docusate Sodium 100 mg 09/01/18 22:00 09/02/18 22:01 Colace - PO 100 mg BID KASSIDY Administration Heparin Sodium (Porcine) 5,000 unit 08/31/18 06:00 09/02/18 21:28 Heparin - SQ Not Given TID KASSIDY Levofloxacin 750 mg in 150 mls @ 100 mls/hr 09/01/18 17:00 09/01/18 18:02 Levaquin 750 Mg Premixed Ivpb - IVPB 100 mls/hr Q48H KASSIDY Administration Protocol Levothyroxine Sodium 75 mcg 09/02/18 07:00 09/03/18 06:15 Synthroid - PO 75 mcg DAILY@0700 KASSIDY Administration Nystatin 500,000 units 08/31/18 06:00 09/03/18 06:15 Nystatin Oral Suspension - PO 500,000 units Q6HPO KASSIDY Administration ASSESSMENT/PLAN: 78 y/o F with HTN, Gout, Asthma, Hypothyroidism, Breast Cancer (+10 years, Defferred tx) was brought from [facility] with Neck pain Left Sided Pleural Effusion with consolidation -CXR noted with significant left sided effusion vs infiltrate -With history of untreated malignancy could be a malignant effusion -Consult pulmonology, consider steroids if wheezing persists -IR percutaneous thoracentesis, 350 cc serous fluid drained, f/u CXR improved effusion, no pneumothorax noted -Send fluid for analysis -CT noted with effusion and consolidation -Levaquin renally dosed -ID consult appreciated Hx untreated breast CA -Heme/Onc consulted -Bone scan noted without any bony mets Neck Pain -Improved -Likely musculoskeletal in nature -CT without any signs of mass/abscess collection PATY vs CKD -BUN/Cr 24/1.9, will reach out to primary care to determine baseline -Urine Osms/Lytes pending -Renal US with atrophic right kidney, b/l echogenic kidneys, no signs of hydro -Trend BMP -Nephrology consult appreciated HTN -Norvasc 10 mg PO Daily Oral Thrush -Nystatin swish and swallow Asthma -DuoNebs PRN -Continue home Symbicort DVT Prophylaxis -Heparin 5000 units SQ TID FEN -Fluids: none -Electrolytes: No electrolyte abnormalities, BMP in AM -Nutrition: Na Controlled diet Disposition Med/Surg Visit type - Emergency Visit Emergency Visit: Yes ED Registration Date: 08/30/18 Care time: The patient presented to the Emergency Department on the above date and was hospitalized for further evaluation of their emergent condition. - New Patient This patient is new to me today: No - Critical Care Critical Care patient: No
[2018-09-03 08:31] LABS: ALBUMIN 2.6 g/dl (3.4-5.0); ALK PHOS 100 U/L (45-117); BILIRUBIN,TOTAL 0.2 mg/dL (0.2-1); SGOT/AST 12 U/L (15-37); SGPT/ALT 14 U/L (13-61)
[2018-09-03] MEDS: ALLOPURINOL 100 MG TABLET (FP) PO SCH (10:16)
[2018-09-03] MEDS: DOCUSATE SODIUM 100 MG CAPSULE (FP) PO SCH ×2 (10:16→21:39)
[2018-09-03] MEDS: CALCIUM 500MG/VIT-D 200 UNITS COMBO TABLET (FP) PO SCH (10:16)
[2018-09-03] MEDS: amLODIPine BESYLATE 10 MG TABLET (FP) PO SCH (10:16)
--- NOTE | 2018-09-03 10:35 | PN ---
Progress Note (short form) - Note Progress Note: PULMONARY Breathing slightly improved with standing nebs. +nonproductive cough. No fevers. Thoracentesis deferred yesterday due to heparin. Vital Signs Period Temp Pulse Resp BP Sys/Trevino Pulse Ox Last 24 Hr 97.5 F-98.5 F 82-92 20-29 150-160/63-88 94 Gen: less tachypneic Heart: RRR Lung: less rhonchi, wheezes Abd: soft, nontender Ext: no edema CBC, BMP 09/03/18 05:00 09/03/18 05:00 Active Medications Acetaminophen (Tylenol -) 650 mg PO Q6H PRN PRN Reason: PAIN OR FEVER Albuterol Sulfate (Ventolin 0.083% Nebulizer Soln -) 1 amp NEB Q4H PRN PRN Reason: SHORT OF BREATH/WHEEZING Albuterol/Ipratropium (Duoneb -) 1 amp NEB RQID [facility] Last Admin: 09/03/18 07:15 Dose: 1 amp Allopurinol (Zyloprim -) 100 mg PO DAILY [facility] Last Admin: 09/03/18 10:16 Dose: 100 mg Amlodipine Besylate (Norvasc -) 10 mg PO DAILY [facility] Last Admin: 09/03/18 10:16 Dose: 10 mg Calcium Carbonate/Cholecalciferol (Os-Kip 500+D -) 2 tab PO DAILY [facility] Last Admin: 09/03/18 10:16 Dose: 2 tab Docusate Sodium (Colace -) 100 mg PO BID [facility] Last Admin: 09/03/18 10:16 Dose: 100 mg Heparin Sodium (Porcine) (Heparin -) 5,000 unit SQ TID [facility] Last Admin: 09/02/18 21:28 Dose: Not Given Levofloxacin (Levaquin 750 Mg Premixed Ivpb -) 750 mg in 150 mls @ 100 mls/hr IVPB Q48H [facility]; Protocol Last Admin: 09/01/18 18:02 Dose: 100 mls/hr Levothyroxine Sodium (Synthroid -) 75 mcg PO DAILY@0700 [facility] Last Admin: 09/03/18 06:15 Dose: 75 mcg Nystatin (Nystatin Oral Suspension -) 500,000 units PO Q6HPO [facility] Last Admin: 09/03/18 06:15 Dose: 500,000 units A/P Lingular consolidation - r/o Pneumonia Left Pleural Effusion h/o Breast Ca Acute Kidney Injury Acute Asthma Exacerbation Hypothyroidism - for diagnostic thoracentesis - continue antibiotics - f/u cultures - continue inhaled bronchodilators standing and PRN - if wheezing persists, will consider short course of steroids - DVT prophylaxis
--- NOTE | 2018-09-03 11:43 | PN ---
Progress Note (short form) - Note Progress Note: PROGRESS NOTE: Hematology-Oncology continues to have cough. For thoracentesis today with IR. denies fevers, abdominal pain, chest pain, hemoptysis, nausea, vomiting, diarrhea Vital Signs Period Temp Pulse Resp BP Sys/Trevino Pulse Ox Last 24 Hr 97.5 F-98.5 F 82-92 20-29 150-160/63-88 94 PE: NAD, resting comfortably with nasal cannula s1, s2, without murmurs lungs: scattered wheezes, no crackles abd: soft, nondistended no LE edema CBCD WBC 9.4 K/mm3 (4.0-10.0) 09/03/18 05:00 RBC 4.26 M/mm3 (3.60-5.2) 09/03/18 05:00 Hgb 11.9 GM/dL (10.7-15.3) 09/03/18 05:00 Hct 37.0 % (32.4-45.2) 09/03/18 05:00 MCV 86.8 fl (80-96) 09/03/18 05:00 MCHC 32.3 g/dl (32.0-36.0) 09/03/18 05:00 RDW 14.6 % (11.6-15.6) 09/03/18 05:00 Plt Count 423 K/MM3 (134-434) 09/03/18 05:00 MPV 8.0 fl (7.5-11.1) 09/03/18 05:00 CMP Sodium 138 mmol/L (136-145) 09/03/18 05:00 Potassium 4.1 mmol/L (3.5-5.1) 09/03/18 05:00 Chloride 102 mmol/L (98-107) 09/03/18 05:00 Carbon Dioxide 30 mmol/L (21-32) 09/03/18 05:00 Anion Gap 7 MMOL/L (8-16) L 09/03/18 05:00 BUN 36 mg/dL (7-18) H 09/03/18 05:00 Creatinine 2.0 mg/dL (0.55-1.3) H 09/03/18 05:00 Creat Clearance w eGFR 24.22 (>60) 09/03/18 05:00 Calcium 8.5 mg/dL (8.5-10.1) 09/03/18 05:00 Total Bilirubin 0.2 mg/dL (0.2-1) 09/03/18 05:00 AST 12 U/L (15-37) L 09/03/18 05:00 ALT 14 U/L (13-61) 09/03/18 05:00 Alkaline Phosphatase 100 U/L (45-117) 09/03/18 05:00 Total Protein 6.0 g/dl (6.4-8.2) L 09/03/18 05:00 Albumin 2.6 g/dl (3.4-5.0) L 09/03/18 05:00 78 yr old woman with HTN, asthma, gout, h/o of breast mass, found to have LLL consolidation and PATY being treated for pneumonia. Problem List: HTN asthma gout Breast mass LLL consolidation PATY pneumonia A/P patient is currently amenable to further investigation of her breast findings, awaiting thoracocentesis for evaluation of pleural fluid for infectious vs malignancy. please send cytology and fluid studies. no lytic lesions noted in soft tissue neck CT, bone scan with no scintographic evidence of osteoblastic bony metastasis txment for pneumonia
[2018-09-03 15:05] LABS: BF WBC & OTHER NUCLEATED CELLS 723 /mm3
[2018-09-03 15:12] LABS: BODY FLUID MONOCYTE 16 %; BODYL FLD EOSINOPHIL 1 %
[2018-09-03 15:13] LABS: BODY FLUID MACROPHAGES 38 %; BODY FLUID MESOTHELIAL 3 %
--- NOTE | 2018-09-03 16:54 | PN ---
Progress Note, Physician History of Present Illness: Pt seen and examined at bedside. She get shortness of breath with ambulation. She denies dysuria. - Current Medication List Current Medications: Active Medications Acetaminophen (Tylenol -) 650 mg PO Q6H PRN PRN Reason: PAIN OR FEVER Albuterol Sulfate (Ventolin 0.083% Nebulizer Soln -) 1 amp NEB Q4H PRN PRN Reason: SHORT OF BREATH/WHEEZING Albuterol/Ipratropium (Duoneb -) 1 amp NEB RQID [facility] Last Admin: 09/03/18 15:51 Dose: 1 amp Allopurinol (Zyloprim -) 100 mg PO DAILY [facility] Last Admin: 09/03/18 10:16 Dose: 100 mg Amlodipine Besylate (Norvasc -) 10 mg PO DAILY [facility] Last Admin: 09/03/18 10:16 Dose: 10 mg Calcium Carbonate/Cholecalciferol (Os-Kip 500+D -) 2 tab PO DAILY [facility] Last Admin: 09/03/18 10:16 Dose: 2 tab Docusate Sodium (Colace -) 100 mg PO BID [facility] Last Admin: 09/03/18 10:16 Dose: 100 mg Heparin Sodium (Porcine) (Heparin -) 5,000 unit SQ TID [facility] Last Admin: 09/02/18 21:28 Dose: Not Given Levofloxacin (Levaquin 750 Mg Premixed Ivpb -) 750 mg in 150 mls @ 100 mls/hr IVPB Q48H [facility]; Protocol Last Admin: 09/01/18 18:02 Dose: 100 mls/hr Levothyroxine Sodium (Synthroid -) 75 mcg PO DAILY@0700 [facility] Last Admin: 09/03/18 06:15 Dose: 75 mcg Nystatin (Nystatin Oral Suspension -) 500,000 units PO Q6HPO [facility] Last Admin: 09/03/18 14:08 Dose: 500,000 units - Objective Vital Signs: Vital Signs Temperature 98.5 F 09/03/18 15:11 Pulse Rate 83 09/03/18 15:11 Respiratory Rate 20 09/03/18 15:11 Blood Pressure 135/84 09/03/18 15:11 O2 Sat by Pulse Oximetry (%) 94 L 09/03/18 09:00 Constitutional: Yes: Calm Eyes: Yes: Conjunctiva Clear HENT: Yes: Atraumatic Cardiovascular: Yes: S1, S2 Respiratory: Yes: Diminished, On Nasal O2 Gastrointestinal: Yes: Soft, Hernia Genitourinary: Yes: WNL Musculoskeletal: Yes: WNL Edema: LLE: Trace, RLE: Trace Neurological: Yes: Oriented Psychiatric: Yes: Oriented Labs: CBC, BMP 09/03/18 05:00 09/03/18 05:00 INR, PTT INR 0.90 (0.83-1.09) 09/01/18 06:15 Assessment/Plan Current Medications Generic Name Dose Route Start Last Admin Trade Name Freq PRN Reason Stop Dose Admin Acetaminophen 650 mg 09/01/18 16:40 Tylenol - PO Q6H PRN PAIN OR FEVER Albuterol Sulfate 1 amp 09/02/18 11:48 Ventolin 0.083% Nebulizer Soln - NEB Q4H PRN SHORT OF BREATH/WHEEZING Albuterol/Ipratropium 1 amp 09/02/18 12:00 09/03/18 15:51 Duoneb - NEB 1 amp RQID KASSIDY Administration Allopurinol 100 mg 09/02/18 10:00 09/03/18 10:16 Zyloprim - PO 100 mg DAILY KASSIDY Administration Amlodipine Besylate 10 mg 09/01/18 15:45 09/03/18 10:16 Norvasc - PO 10 mg DAILY KASSIDY Administration Calcium Carbonate/Cholecalciferol 2 tab 09/02/18 10:00 09/03/18 10:16 Os-Kip 500+D - PO 2 tab DAILY K[facility]IDY Administration Docusate Sodium 100 mg 09/01/18 22:00 09/03/18 10:16 Colace - PO 100 mg BID KASSIDY Administration Heparin Sodium (Porcine) 5,000 unit 08/31/18 06:00 09/02/18 21:28 Heparin - SQ Not Given TID KASSIDY Levofloxacin 750 mg in 150 mls @ 100 mls/hr 09/01/18 17:00 09/01/18 18:02 Levaquin 750 Mg Premixed Ivpb - IVPB 100 mls/hr Q48H K[facility]IDY Administration Protocol Levothyroxine Sodium 75 mcg 09/02/18 07:00 09/03/18 06:15 Synthroid - PO 75 mcg DAILY@0700 K[facility]IDY Administration Nystatin 500,000 units 08/31/18 06:00 09/03/18 14:08 Nystatin Oral Suspension - PO 500,000 units Q6HPO KASSIDY Administration Impression 1. CKD 2. hypothyroidism 3. breast cancer 4. pleural effusion 5. gout 6. asthma 7. liver disease Plan - cont to monitor renal function - follow up urine studies - follow thoracocenstesis - atrophic kidney on ultrasound - avoid nsaids - will follow
--- NOTE | 2018-09-03 17:36 | PN ---
Teaching Attending Note Name of Resident: Jose A Alcazar ATTENDING PHYSICIAN STATEMENT I saw and evaluated the patient. I reviewed the resident's note and discussed the case with the resident. I agree with the resident's findings and plan as documented. SUBJECTIVE: Feels slightly better wrt SOB. Cough - yellow sputum - no blood. No fever/chills. No CP/palps OBJECTIVE: Afebrile, Hemodynamically Stable Last Vital Signs Temp Pulse Resp BP Pulse Ox 98.5 F 83 20 135/84 94 L 09/03/18 15:11 09/03/18 15:11 09/03/18 15:11 09/03/18 15:11 09/03/18 09:00 HEENT - Afebrile, Hemodynamically Stable Heart - S1, S2, RRR Lungs - Bilateral wheeze improved, bibasal crackles, reduced air entry Left base with dullness to percussion. Abdomen - soft, non-tender. Bowel Sounds normal. Extremities - no calf swelling/tenderness. No edema. Laboratory Results - last 24 hr 09/03/18 09/03/18 09/03/18 05:00 05:00 14:00 WBC 9.4 RBC 4.26 Hgb 11.9 Hct 37.0 MCV 86.8 MCH 28.0 MCHC 32.3 RDW 14.6 Plt Count 423 MPV 8.0 Sodium 138 Potassium 4.1 Chloride 102 Carbon Dioxide 30 Anion Gap 7 L BUN 36 H Creatinine 2.0 H Creat Clearance w eGFR 24.22 Random Glucose 83 Calcium 8.5 Phosphorus 4.2 Magnesium 2.1 Total Bilirubin 0.2 AST 12 L ALT 14 Alkaline Phosphatase 100 LD Total 187 Total Protein 6.0 L Albumin 2.6 L Fluid Source Pleural fluid Fluid WBC 723 Fluid RBC 857 Fluid Neutrophils 25 Fluid Lymphocytes 17 Pleural Monocytes 16 Pleural Eosinophils 1 Pleural Macrophages 38 Pleural Mesothelial 3 Current Medications Generic Name Dose Route Start Last Admin Trade Name Freq PRN Reason Stop Dose Admin Acetaminophen 650 mg 09/01/18 16:40 Tylenol - PO Q6H PRN PAIN OR FEVER Albuterol Sulfate 1 amp 09/02/18 11:48 Ventolin 0.083% Nebulizer Soln - NEB Q4H PRN SHORT OF BREATH/WHEEZING Albuterol/Ipratropium 1 amp 09/02/18 12:00 09/03/18 15:51 Duoneb - NEB 1 amp RQID KASSIDY Administration Allopurinol 100 mg 09/02/18 10:00 09/03/18 10:16 Zyloprim - PO 100 mg DAILY KASSIDY Administration Amlodipine Besylate 10 mg 09/01/18 15:45 09/03/18 10:16 Norvasc - PO 10 mg DAILY KASSIDY Administration Calcium Carbonate/Cholecalciferol 2 tab 09/02/18 10:00 09/03/18 10:16 Os-Kip 500+D - PO 2 tab DAILY KASSIDY Administration Docusate Sodium 100 mg 09/01/18 22:00 09/03/18 10:16 Colace - PO 100 mg BID KASSIDY Administration Heparin Sodium (Porcine) 5,000 unit 08/31/18 06:00 09/02/18 21:28 Heparin - SQ Not Given TID KASSIDY Levofloxacin 750 mg in 150 mls @ 100 mls/hr 09/01/18 17:00 09/01/18 18:02 Levaquin 750 Mg Premixed Ivpb - IVPB 100 mls/hr Q48H KASSIDY Administration Protocol Levothyroxine Sodium 75 mcg 09/02/18 07:00 09/03/18 06:15 Synthroid - PO 75 mcg DAILY@0700 KASSIDY Administration Nystatin 500,000 units 08/31/18 06:00 09/03/18 14:08 Nystatin Oral Suspension - PO 500,000 units Q6HPO KASSIDY Administration ASSESSMENT AND PLAN: 78 year old female with HTN, Gout, Asthma, Hypothyroidism, History of Breast Ca (for > 10 years ago without treatment), presented with L sided back/neck pain, admitted with L sided pneumonia with L pleural effusion. 1. IRENE Pneumonia with L effusion with COPD exacerbation (bilateral wheeze) Afebrile, Hemodynamically stable. Wean off supplemental O2 as tolerated. Continue regular Bronchodilator Nebs. If no improvement s/p thoracentesis, will consider adding steroid. Continue Levofloxaicn ID and Pulm following s/p Thoracentesis 09/03/18 - 350cc fluid drained - sent for gram stain, culture, cytology, LDH, protein. 2. History of Breast Ca (diagnosed >10 years ago without treatment) - NM scan shows - no bone mets, DJD spine and wrists, severely atrophic R kidney. Will send Thoracentesis fluid for cytology. 3. PATY on CKD 3 - Renal US shows chronic renal disease, no hydronephrosis. Nephrology consult appreciated. 4. Chronic Neck Pain - likely musculoskeletal. CT Neck with Contrast: No Abscess, Centrilobular emphysema Continue Flexeril prn. 5. HTN - controlled. Continue Norvasc 6. Oral Thrush - continue Nystatin Swish and Swallow 7. Gout - stable. Continue Allopurinol. 8. Hypothyroidism - continue Levothyroxine. DVT Px - resume Heparin SQ after thoracentesis.
[2018-09-03 19:23] LABS: RATIO URIN PROTEIN/URIN CREAT 1.17 MG/DL; URINE APPEARANCE SLCLOUDY; URINE BILIRUBIN NEGATIVE (<2.0 mg/dL); URINE COLOR LTYELLOW; URINE GLUCOSE (UA) NEGATIVE (NEGATIVE); URINE KETONE NEGATIVE (NEGATIVE); URINE LEUK ESTERASE NEGATIVE (NEGATIVE); URINE NITRITE NEGATIVE (NEGATIVE); URINE PROTEIN 2+ (NEGATIVE); URINE UROBILINOGEN NEGATIVE mg/dL (0.2-1.0)
[2018-09-03 19:33] LABS: EPI CELLS MANY /HPF (FEW); URINE BACTERIA RARE /hpf (NONE SEEN); URINE MUCUS RARE
[2018-09-03] MEDS: HEPARIN NA (PORCINE) 5,000 UNITS/ML 1ML VIAL SQ SCH (21:39)
[2018-09-04] MEDS: NYSTATIN 500,000 UNITS/5 ML SUSPENSION PO SCH ×5 (00:35→23:04)
[2018-09-04] MEDS: HEPARIN NA (PORCINE) 5,000 UNITS/ML 1ML VIAL SQ SCH ×3 (05:34→21:09)
[2018-09-04] MEDS: LEVOTHYROXINE NA 75 MCG TABLET (FP) PO SCH (06:19)
[2018-09-04] MEDS: ALBUTEROL SO4 2.5/IPRATROPIUM 0.5 INH SOL 3 ML VIAL.NEB. NEB SCH ×3 (07:44→20:04)
--- NOTE | 2018-09-04 07:56 | PN ---
Physical Exam: SUBJECTIVE: Patient seen and examined this AM. She states she is feeling very well at this point and states some improvement after the thoracentesis yesterday. OBJECTIVE: Vital Signs Period Temp Pulse Resp BP Sys/Trevino Pulse Ox Last 24 Hr 97.6 F-98.5 F 83-95 20-20 135-185/82-88 92-94 GENERAL: A&O, no acute distress HEAD: Normocephalic, atraumatic. EYES: PERRL, no scleral icterus EARS, NOSE, THROAT: oropharynx clear without exudates. Moist mucous membranes. NECK: supple without lymphadenopathy LUNGS: wheezes bilaterally, crackles at the bases, decreased air entry in left base, though improved from yesterday HEART: Regular rate and rhythm, normal S1 and S2 without murmur ABDOMEN: Soft, nontender to palpation, normoactive bowel sounds MUSCULOSKELETAL: some tenderness to palpation on the left posterior neck and shoulder musculature, no palpable masses or abscesses EXTREMITIES: 2+ pulses, warm, well-perfused. No peripheral edema. 5/5 strength on the left, otherwise normal exam. NEUROLOGICAL: Cranial nerves II-XII grossly intact. Normal speech. SKIN: Warm, dry, no rashes or lesions noted Laboratory Results - last 24 hr 09/03/18 09/03/18 09/03/18 05:00 14:00 18:30 Sodium 138 Potassium 4.1 Chloride 102 Carbon Dioxide 30 Anion Gap 7 L BUN 36 H Creatinine 2.0 H Creat Clearance w eGFR 24.22 Random Glucose 83 Calcium 8.5 Phosphorus 4.2 Magnesium 2.1 Total Bilirubin 0.2 AST 12 L ALT 14 Alkaline Phosphatase 100 LD Total 187 Total Protein 6.0 L Albumin 2.6 L Urine Color Urine Appearance Urine pH Ur Specific [place] Urine Protein Urine Glucose (UA) Urine Ketones Urine Blood Urine Nitrite Urine Bilirubin Urine Urobilinogen Ur Leukocyte Esterase Urine WBC (Auto) Urine RBC (Auto) Ur Epithelial Cells Urine Bacteria Urine Mucus Urine Osmolality U Random Total Protein Ur Random Sodium 61 Ur Random Chloride 68 L Urine Creatinine Protein/Creatinin Ratio Fluid Source Pleural fluid Fluid WBC 723 Fluid RBC 857 Fluid Neutrophils 25 Fluid Lymphocytes 17 Pleural Monocytes 16 Pleural Eosinophils 1 Pleural Macrophages 38 Pleural Mesothelial 3 09/03/18 09/03/18 09/03/18 18:30 18:30 18:30 Sodium Potassium Chloride Carbon Dioxide Anion Gap BUN Creatinine Creat Clearance w eGFR Random Glucose Calcium Phosphorus Magnesium Total Bilirubin AST ALT Alkaline Phosphatase LD Total Total Protein Albumin Urine Color Ltyellow Urine Appearance Slcloudy Urine pH 5.0 Ur Specific [place] 1.012 Urine Protein 2+ H Urine Glucose (UA) Negative Urine Ketones Negative Urine Blood Negative Urine Nitrite Negative Urine Bilirubin Negative Urine Urobilinogen Negative Ur Leukocyte Esterase Negative Urine WBC (Auto) 6 Urine RBC (Auto) 1 Ur Epithelial Cells Many Urine Bacteria Rare Urine Mucus Rare Urine Osmolality 417 U Random Total Protein 74.1 H Ur Random Sodium Ur Random Chloride Urine Creatinine 63.0 H Protein/Creatinin Ratio 1.170 Fluid Source Fluid WBC Fluid RBC Fluid Neutrophils Fluid Lymphocytes Pleural Monocytes Pleural Eosinophils Pleural Macrophages Pleural Mesothelial 09/03/18 18:30 Sodium Potassium Chloride Carbon Dioxide Anion Gap BUN Creatinine Creat Clearance w eGFR Random Glucose Calcium Phosphorus Magnesium Total Bilirubin AST ALT Alkaline Phosphatase LD Total Total Protein Albumin Urine Color Urine Appearance Urine pH Ur Specific [place] Urine Protein Urine Glucose (UA) Urine Ketones Urine Blood Urine Nitrite Urine Bilirubin Urine Urobilinogen Ur Leukocyte Esterase Urine WBC (Auto) Urine RBC (Auto) Ur Epithelial Cells Urine Bacteria Urine Mucus Urine Osmolality U Random Total Protein Ur Random Sodium 60 Ur Random Chloride Urine Creatinine Protein/Creatinin Ratio Fluid Source Fluid WBC Fluid RBC Fluid Neutrophils Fluid Lymphocytes Pleural Monocytes Pleural Eosinophils Pleural Macrophages Pleural Mesothelial Active Medications Generic Name Dose Route Start Last Admin Trade Name Lizzette PRN Reason Stop Dose Admin Acetaminophen 650 mg 09/01/18 16:40 Tylenol - PO Q6H PRN PAIN OR FEVER Albuterol Sulfate 1 amp 09/02/18 11:48 Ventolin 0.083% Nebulizer Soln - NEB Q4H PRN SHORT OF BREATH/WHEEZING Albuterol/Ipratropium 1 amp 09/02/18 12:00 09/04/18 07:44 Duoneb - NEB 1 amp RQID KASSIDY Administration Allopurinol 100 mg 09/02/18 10:00 09/03/18 10:16 Zyloprim - PO 100 mg DAILY KASSIDY Administration Amlodipine Besylate 10 mg 09/01/18 15:45 09/03/18 10:16 Norvasc - PO 10 mg DAILY KASSIDY Administration Calcium Carbonate/Cholecalciferol 2 tab 09/02/18 10:00 09/03/18 10:16 Os-Kip 500+D - PO 2 tab DAILY KASSIDY Administration Docusate Sodium 100 mg 09/01/18 22:00 09/03/18 21:39 Colace - PO 100 mg BID KASSIDY Administration Heparin Sodium (Porcine) 5,000 unit 08/31/18 06:00 09/04/18 05:34 Heparin - SQ 5,000 unit TID KASSIDY Administration Levofloxacin 750 mg in 150 mls @ 100 mls/hr 09/01/18 17:00 09/03/18 17:42 Levaquin 750 Mg Premixed Ivpb - IVPB 100 mls/hr Q48H KASSIDY Administration Protocol Levothyroxine Sodium 75 mcg 09/02/18 07:00 09/04/18 06:19 Synthroid - PO 75 mcg DAILY@0700 KASSIDY Administration Melatonin 5 mg 09/04/18 07:45 Melatonin PO HS PRN INSOMNIA Nystatin 500,000 units 08/31/18 06:00 09/04/18 05:34 Nystatin Oral Suspension - PO 500,000 units Q6HPO KASSIDY Administration ASSESSMENT/PLAN: 78 y/o F with HTN, Gout, Asthma, Hypothyroidism, Breast Cancer (+10 years, [facility] tx) was brought from [facility] with Neck pain Left Sided Pleural Effusion with consolidation -CXR noted with significant left sided effusion vs infiltrate -With history of untreated malignancy could be a malignant effusion -Consult pulmonology, consider steroids if wheezing persists -IR percutaneous thoracentesis, 350 cc serous fluid drained, f/u CXR improved effusion, no pneumothorax noted -CT noted with effusion and consolidation -Levaquin renally dosed -ID consult appreciated -Awaiting results of fluid analysis Hx untreated breast CA -Heme/Onc consulted -Bone scan noted without any bony mets Neck Pain -Improved -Likely musculoskeletal in nature -CT without any signs of mass/abscess collection PATY vs CKD -BUN/Cr 24/1.9, most recent records found from outside institution Creatinine 1.6 -Renal US with atrophic right kidney, b/l echogenic kidneys, no signs of hydro -Trend BMP -Nephrology consult appreciated -Continue to ensure adequate hydration HTN -Norvasc 10 mg PO Daily Oral Thrush -Nystatin swish and swallow Asthma -DuoNebs PRN -Continue home Symbicort DVT Prophylaxis -Heparin 5000 units SQ TID FEN -Fluids: none -Electrolytes: No electrolyte abnormalities, BMP in AM -Nutrition: Na Controlled diet Disposition Med/Surg Visit type - Emergency Visit Emergency Visit: Yes ED Registration Date: 08/30/18 Care time: The patient presented to the Emergency Department on the above date and was hospitalized for further evaluation of their emergent condition. - New Patient This patient is new to me today: No - Critical Care Critical Care patient: No
--- NOTE | 2018-09-04 08:08 | PN ---
Progress Note (short form) - Note Progress Note: Patient seen and examined S/P thoracentesis Remains with cough and Shortness of breath Last Vital Signs Temp Pulse Resp BP Pulse Ox 97.6 F 95 H 20 162/82 92 L 09/04/18 05:46 09/04/18 05:46 09/04/18 05:46 09/04/18 05:46 09/03/18 21:00 HEENT: CLOTILDE, EOM Intact Oropharynx: No thrush, No mucositis Neck: Supple Nodes: Without adenopathy Breasts: 6:00 right breast with dimpling and 2.0 x 2.5 cm mass Cor: RSR, No murmurs, No gallops Lungs: rhonchi; diminished breath sounds bilaterally Abd: Soft, Normal bowel sounds, No organomegaly Ext:No significant edema Skin: No rashes, Integument intact CBC, BMP 09/03/18 05:00 09/03/18 05:00 Current Medications Generic Name Dose Route Start Last Admin Trade Name Freq PRN Reason Stop Dose Admin Acetaminophen 650 mg 09/01/18 16:40 Tylenol - PO Q6H PRN PAIN OR FEVER Albuterol Sulfate 1 amp 09/02/18 11:48 Ventolin 0.083% Nebulizer Soln - NEB Q4H PRN SHORT OF BREATH/WHEEZING Albuterol/Ipratropium 1 amp 09/02/18 12:00 09/04/18 07:44 Duoneb - NEB 1 amp RQID KASSIDY Administration Allopurinol 100 mg 09/02/18 10:00 09/03/18 10:16 Zyloprim - PO 100 mg DAILY KASSIDY Administration Amlodipine Besylate 10 mg 09/01/18 15:45 09/03/18 10:16 Norvasc - PO 10 mg DAILY KASSIDY Administration Calcium Carbonate/Cholecalciferol 2 tab 09/02/18 10:00 09/03/18 10:16 Os-Kip 500+D - PO 2 tab DAILY KASSIDY Administration Docusate Sodium 100 mg 09/01/18 22:00 09/03/18 21:39 Colace - PO 100 mg BID KASSIDY Administration Heparin Sodium (Porcine) 5,000 unit 08/31/18 06:00 09/04/18 05:34 Heparin - SQ 5,000 unit TID KASSIDY Administration Levofloxacin 750 mg in 150 mls @ 100 mls/hr 09/01/18 17:00 09/03/18 17:42 Levaquin 750 Mg Premixed Ivpb - IVPB 100 mls/hr Q48H KASSIDY Administration Protocol Levothyroxine Sodium 75 mcg 09/02/18 07:00 09/04/18 06:19 Synthroid - PO 75 mcg DAILY@0700 KASSIDY Administration Melatonin 5 mg 09/04/18 07:45 Melatonin PO HS PRN INSOMNIA Nystatin 500,000 units 08/31/18 06:00 09/04/18 05:34 Nystatin Oral Suspension - PO 500,000 units Q6HPO KASSIDY Administration Problem List: s/p thoracentesis HTN asthma gout Breast mass LLL consolidation PATY pneumonia Plan: Await results of throacentesis Patient with 3 brothers with ca , 1 sister with ca - ?? type Last mammography about 20 years earlier To continue antibiotic therapy
[2018-09-04] MEDS: amLODIPine BESYLATE 10 MG TABLET (FP) PO SCH (09:09)
[2018-09-04] MEDS: CALCIUM 500MG/VIT-D 200 UNITS COMBO TABLET (FP) PO SCH (09:09)
[2018-09-04] MEDS: DOCUSATE SODIUM 100 MG CAPSULE (FP) PO SCH ×2 (09:09→21:09)
[2018-09-04] MEDS: ALLOPURINOL 100 MG TABLET (FP) PO SCH (09:09)
[2018-09-04 10:20] LABS: BASO % 0.6 % (0-2.0); EOS % 1.3 % (0-4.5); HEMOGLOBIN 11.5 GM/dL (10.7-15.3); LYMPH % 17.9 % (8-40); MCH 29.9 pg (25.7-33.7); MCHC 34.9 g/dl (32.0-36.0); MEAN CELL VOLUME 85.7 fl (80-96); MEAN PLT VOLUME 7.9 fl (7.5-11.1); MONO % 6.3 % (3.8-10.2); NEUT % 73.9 % (42.8-82.8); PLATELET COUNT 393 K/MM3 (134-434); RBC 3.85 M/mm3 (3.60-5.2); RDW 15.3 % (11.6-15.6); WHITE BLOOD COUNT 8.4 K/mm3 (4.0-10.0)
--- NOTE | 2018-09-04 10:30 | PN ---
Physical Exam: SUBJECTIVE: Patient seen and examined at bedside. No complaints at this time. OBJECTIVE: Vital Signs Period Temp Pulse Resp BP Sys/Trevino Pulse Ox Last 24 Hr 97.6 F-98.5 F 83-95 20-20 135-185/82-93 92 Gen: NAD HEENT: NCAT, EOMI Neck: mild ttp left neck Cardio: rrr, normal s1s2, no murmurs/rubs/gallops appreciated Pulm: decreased breath sounds L Abd: nondistended, normal bs, soft nontender Ext: 2+ pulses no edema Laboratory Results - last 24 hr 09/03/18 09/03/18 09/03/18 14:00 18:30 18:30 Urine Color Urine Appearance Urine pH Ur Specific [place] Urine Protein Urine Glucose (UA) Urine Ketones Urine Blood Urine Nitrite Urine Bilirubin Urine Urobilinogen Ur Leukocyte Esterase Urine WBC (Auto) Urine RBC (Auto) Ur Epithelial Cells Urine Bacteria Urine Mucus Urine Osmolality U Random Total Protein 74.1 H Ur Random Sodium 61 Ur Random Chloride 68 L Urine Creatinine 63.0 H Protein/Creatinin Ratio 1.170 Fluid Source Pleural fluid Fluid WBC 723 Fluid RBC 857 Fluid Neutrophils 25 Fluid Lymphocytes 17 Pleural Monocytes 16 Pleural Eosinophils 1 Pleural Macrophages 38 Pleural Mesothelial 3 09/03/18 09/03/18 09/03/18 18:30 18:30 18:30 Urine Color Ltyellow Urine Appearance Slcloudy Urine pH 5.0 Ur Specific [place] 1.012 Urine Protein 2+ H Urine Glucose (UA) Negative Urine Ketones Negative Urine Blood Negative Urine Nitrite Negative Urine Bilirubin Negative Urine Urobilinogen Negative Ur Leukocyte Esterase Negative Urine WBC (Auto) 6 Urine RBC (Auto) 1 Ur Epithelial Cells Many Urine Bacteria Rare Urine Mucus Rare Urine Osmolality 417 U Random Total Protein Ur Random Sodium 60 Ur Random Chloride Urine Creatinine Protein/Creatinin Ratio Fluid Source Fluid WBC Fluid RBC Fluid Neutrophils Fluid Lymphocytes Pleural Monocytes Pleural Eosinophils Pleural Macrophages Pleural Mesothelial Active Medications Generic Name Dose Route Start Last Admin Trade Name Freq PRN Reason Stop Dose Admin Acetaminophen 650 mg 09/01/18 16:40 Tylenol - PO Q6H PRN PAIN OR FEVER Albuterol Sulfate 1 amp 09/02/18 11:48 Ventolin 0.083% Nebulizer Soln - NEB Q4H PRN SHORT OF BREATH/WHEEZING Albuterol/Ipratropium 1 amp 09/02/18 12:00 09/04/18 07:44 Duoneb - NEB 1 amp RQID KASSIDY Administration Allopurinol 100 mg 09/02/18 10:00 09/04/18 09:09 Zyloprim - PO 100 mg DAILY KASSIDY Administration Amlodipine Besylate 10 mg 09/01/18 15:45 09/04/18 09:09 Norvasc - PO 10 mg DAILY KASSIDY Administration Calcium Carbonate/Cholecalciferol 2 tab 09/02/18 10:00 09/04/18 09:09 Os-Kip 500+D - PO 2 tab DAILY KASSIDY Administration Docusate Sodium 100 mg 09/01/18 22:00 09/04/18 09:09 Colace - PO 100 mg BID KASSIDY Administration Heparin Sodium (Porcine) 5,000 unit 08/31/18 06:00 09/04/18 05:34 Heparin - SQ 5,000 unit TID KASSIDY Administration Levofloxacin 750 mg in 150 mls @ 100 mls/hr 09/01/18 17:00 09/03/18 17:42 Levaquin 750 Mg Premixed Ivpb - IVPB 100 mls/hr Q48H KASSIDY Administration Protocol Levothyroxine Sodium 75 mcg 09/02/18 07:00 09/04/18 06:19 Synthroid - PO 75 mcg DAILY@0700 KASSIDY Administration Melatonin 5 mg 09/04/18 07:45 Melatonin PO HS PRN INSOMNIA Nystatin 500,000 units 08/31/18 06:00 09/04/18 05:34 Nystatin Oral Suspension - PO 500,000 units Q6HPO KASSIDY Administration ASSESSMENT/PLAN: Pt is a 78 y/o F with multiple medical problems who presented to ED from [place] for neck pain. Creatinine was found to be elevated without baseline for comparison. Nephrology was called to evaluate for PATY. 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 duration (no baseline - per chart [employer] was 1.6 ~3 years ago) Chart reveals hist CKD. PCP was unreachable. -Pt does not appear dehydrated. No change in cigar binder after ensuring adequate hydration. UA pos for protein. No blood. No sterile pyuria. No casts. No obstruction on US. -no evidence of hypoperfusion or obstruction -long standing history of HTN -ensure adequate hydration -monitor [employer] #HTN -c/w norvasc #Gout -hold NSAIDs in setting of possible PATY #Asthma -c/w duonebs #Breast CA -Heme/Onc on board -pt evidently does not want any treatment #prior MA -rec out pt f/u. Not on ASA Dispo: We will continue to follow the patient. Thank you for this consultative opportunity. Ariel Marti MD PGY2 IM - Nephrology Visit type - Emergency Visit Emergency Visit: No - New Patient This patient is new to me today: No - Critical Care Critical Care patient: No
[2018-09-04 11:21] LABS: ALBUMIN 2.3 g/dl (3.4-5.0); ALK PHOS 83 U/L (45-117); ANION GAP 7 MMOL/L (8-16); BILIRUBIN,TOTAL 0.5 mg/dL (0.2-1); BLOOD UREA NITROGEN 33 mg/dL (7-18); CALCIUM 8.6 mg/dL (8.5-10.1); CHLORIDE 98 mmol/L (98-107); CO2 31 mmol/L (21-32); CREATININE 2.1 mg/dL (0.55-1.3); GLUCOSE,RANDOM 116 mg/dL (74-106); SGOT/AST 15 U/L (15-37); SGPT/ALT 12 U/L (13-61); SODIUM 136 mmol/L (136-145); TOT PROT 5.5 g/dl (6.4-8.2)
[2018-09-04 14:14] LABS: BODY FLUID ALBUMIN 1.4 g/dL (.)
--- NOTE | 2018-09-04 14:40 | PN ---
Teaching Attending Note Name of Resident: Ariel Marti (Nephrology) ATTENDING PHYSICIAN STATEMENT I saw and evaluated the patient. I reviewed the resident's note and discussed the case with the resident. I agree with the resident's findings and plan as documented. Renal Pt seen and examined at bedside. She had the thoracocentesis. She denies dysuria. She remembers being told years ago that her renal function is not normal however she has not followed up with anyone for it. Current Medications Generic Name Dose Route Start Last Admin Trade Name Freq PRN Reason Stop Dose Admin Acetaminophen 650 mg 09/01/18 16:40 Tylenol - PO Q6H PRN PAIN OR FEVER Albuterol Sulfate 1 amp 09/02/18 11:48 Ventolin 0.083% Nebulizer Soln - NEB Q4H PRN SHORT OF BREATH/WHEEZING Albuterol/Ipratropium 1 amp 09/02/18 12:00 09/04/18 13:20 Duoneb - NEB 1 amp RQID KASSIDY Administration Allopurinol 100 mg 09/02/18 10:00 09/04/18 09:09 Zyloprim - PO 100 mg DAILY KASSIDY Administration Amlodipine Besylate 10 mg 09/01/18 15:45 09/04/18 09:09 Norvasc - PO 10 mg DAILY KASSIDY Administration Calcium Carbonate/Cholecalciferol 2 tab 09/02/18 10:00 09/04/18 09:09 Os-Kip 500+D - PO 2 tab DAILY KASSIDY Administration Docusate Sodium 100 mg 09/01/18 22:00 09/04/18 09:09 Colace - PO 100 mg BID KASSIDY Administration Heparin Sodium (Porcine) 5,000 unit 08/31/18 06:00 09/04/18 13:13 Heparin - SQ 5,000 unit TID KASSIDY Administration Levofloxacin 750 mg in 150 mls @ 100 mls/hr 09/01/18 17:00 09/03/18 17:42 Levaquin 750 Mg Premixed Ivpb - IVPB 100 mls/hr Q48H KASSIDY Administration Protocol Levothyroxine Sodium 75 mcg 09/02/18 07:00 09/04/18 06:19 Synthroid - PO 75 mcg DAILY@0700 KASSIDY Administration Melatonin 5 mg 09/04/18 07:45 Melatonin PO HS PRN INSOMNIA Nystatin 500,000 units 08/31/18 06:00 09/04/18 11:27 Nystatin Oral Suspension - PO Not Given Q6HPO KASSIDY Last Vital Signs Temp Pulse Resp BP Pulse Ox 97.9 F 101 H 20 142/74 92 L 09/04/18 13:46 09/04/18 13:46 09/04/18 13:46 09/04/18 13:46 09/03/18 21:00 Laboratory Tests 09/02/18 09/03/18 09/03/18 05:15 05:00 18:30 Creatinine 2.1 H 2.0 H Urine Protein Protein/Creatinin Ratio 1.170 09/03/18 09/04/18 18:30 09:45 Creatinine 2.1 H Urine Protein 2+ H Protein/Creatinin Ratio cardio s1s2 pulm breath sounds, wheeze gi soft ext neg edema neuro awake and alert skin neg rash Impression 1. CKD 2. hypothyroidism 3. breast cancer 4. pleural effusion 5. gout 6. asthma 7. liver disease 8. 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
--- NOTE | 2018-09-04 14:58 | PN ---
Progress Note (short form) - Note Progress Note: PULMONARY SITTING IN CHAIR WITH LEGS ELEVATED VSS ANICTERIC DIMINISHED BREATH SOUNDS S1S2 BS+ NO EDEMA LABS/MICRO/NOTES/IMAGES/MEDS REVIEWED PLEURAL FLUID TRANSUDATIVE IN NATURE IMP LLL CONSOLIDATION/EFFUSION ASTHMA H/O BREAST CA PATY ASTHMA GOUT PLAN IV ABX CULTURES NEGATIVE THUS FAR INHALED BRONCHODILATORS MONITOR LYTES,RENAL FUNCTION URINARY ANTIGENS ARE NEGATIVE Mike RODRIGUES MD
--- NOTE | 2018-09-04 14:59 | PN ---
Progress Note (short form) - Note Progress Note: s/p thoracentesis breathing iproved Vital Signs Period Temp Pulse Resp BP Sys/Trevino Pulse Ox Last 24 Hr 97.6 F-98.5 F 83-101 20-20 135-185/74-93 92 cor-rrr lungs decreased bs left base abd soft,nt ext no edema CBC, BMP 09/04/18 09:45 09/04/18 09:45 Microbiology 09/03/18 11:30 Pleural Fluid Body Fluid Culture - Preliminary NO AEROBIC GROWTH, 24 HRS 09/03/18 11:30 Pleural Fluid GEORGES Preparation - Preliminary 09/03/18 11:30 Pleural Fluid Fungal Culture - Preliminary 08/30/18 18:05 Blood - Peripheral Venous Blood Culture - Preliminary NO GROWTH OBTAINED AFTER 96 HOURS, INCUBATION TO CONTINUE FOR 1 DAYS. 08/30/18 18:05 Blood - Peripheral Venous Blood Culture - Preliminary NO GROWTH OBTAINED AFTER 96 HOURS, INCUBATION TO CONTINUE FOR 1 DAYS. 09/01/18 16:00 Urine For Antigen Detection Legionella Antigen - Final 09/01/18 16:00 Urine For Antigen Detection Streptococcus pneumoniae Antigen (M - Final 08/30/18 18:03 Throat Throat Culture - Final NO BETA HEMOLYTIC STREPTOCOCCI ISOLATED a/p left pleural effussion/infiltrate ceftin allergy- records list penicillin too right breast mass active smoker ckd no history of TB or TB exposure agree with thoracentesis either a partially treated pneumonia with parapneumonic effusion- apparently was prescribed po antibiotics at [facility] or malignancy continue levaquin adjusted for CKD day #4 Problem List - Problems (1) Pleural effusion Code(s): J90 - PLEURAL EFFUSION, NOT ELSEWHERE CLASSIFIED (2) Pneumonia Code(s): J18.9 - PNEUMONIA, UNSPECIFIED ORGANISM (3) Breast mass, right Code(s): N63.10 - UNSPECIFIED LUMP IN THE RIGHT BREAST, UNSPECIFIED QUADRANT (4) CKD (chronic kidney disease) Code(s): N18.9 - CHRONIC KIDNEY DISEASE, UNSPECIFIED (5) Allergy to multiple antibiotics Code(s): Z88.1 - ALLERGY STATUS TO OTHER ANTIBIOTIC AGENTS STATUS
--- NOTE | 2018-09-04 18:45 | PN ---
Teaching Attending Note Name of Resident: Lucio Oneill ATTENDING PHYSICIAN STATEMENT I saw and evaluated the patient. I reviewed the resident's note and discussed the case with the resident. I agree with the resident's findings and plan as documented. SUBJECTIVE: Feeling much better. Less dyspnea, less cough. No fever. OBJECTIVE: Afebrile, Hemodynamically Stable. SpO2 92% on 2L, 84 % on RA. Last Vital Signs Temp Pulse Resp BP Pulse Ox 97.9 F 101 H 20 142/74 92 L 09/04/18 13:46 09/04/18 13:46 09/04/18 13:46 09/04/18 13:46 09/03/18 21:00 HEENT - Afebrile, Hemodynamically Stable Heart - S1, S2, RRR Lungs - L sided crackles, no wheeze. Abdomen - soft, non-tender. Reducible hernias bilateral lower abdomen. Bowel Sounds normal. Extremities - no calf swelling/tenderness. No edema. Laboratory Results - last 24 hr 09/03/18 09/03/18 09/03/18 13:20 17:00 18:30 WBC RBC Hgb Hct MCV MCH MCHC RDW Plt Count MPV Absolute Neuts (auto) Neutrophils % Lymphocytes % Monocytes % Eosinophils % Basophils % Nucleated RBC % Sodium Potassium Chloride Carbon Dioxide Anion Gap BUN Creatinine Creat Clearance w eGFR Random Glucose Calcium Total Bilirubin AST ALT Alkaline Phosphatase Total Protein Albumin Urine Color Urine Appearance Urine pH Ur Specific [place] Urine Protein Urine Glucose (UA) Urine Ketones Urine Blood Urine Nitrite Urine Bilirubin Urine Urobilinogen Ur Leukocyte Esterase Urine WBC (Auto) Urine RBC (Auto) Ur Epithelial Cells Urine Bacteria Urine Mucus Urine Osmolality U Random Total Protein Ur Random Sodium 61 Ur Random Chloride 68 L Urine Creatinine 63.0 H Protein/Creatinin Ratio POC Fluid pH 7.8 Fluid Total Protein 2.8 Fluid Albumin 1.4 Body Fluid LDH Source 101 Fluid Amylase 24 Fluid Triglycerides 26 09/03/18 09/03/18 09/03/18 18:30 18:30 18:30 WBC RBC Hgb Hct MCV MCH MCHC RDW Plt Count MPV Absolute Neuts (auto) Neutrophils % Lymphocytes % Monocytes % Eosinophils % Basophils % Nucleated RBC % Sodium Potassium Chloride Carbon Dioxide Anion Gap BUN Creatinine Creat Clearance w eGFR Random Glucose Calcium Total Bilirubin AST ALT Alkaline Phosphatase Total Protein Albumin Urine Color Ltyellow Urine Appearance Slcloudy Urine pH 5.0 Ur Specific [place] 1.012 Urine Protein 2+ H Urine Glucose (UA) Negative Urine Ketones Negative Urine Blood Negative Urine Nitrite Negative Urine Bilirubin Negative Urine Urobilinogen Negative Ur Leukocyte Esterase Negative Urine WBC (Auto) 6 Urine RBC (Auto) 1 Ur Epithelial Cells Many Urine Bacteria Rare Urine Mucus Rare Urine Osmolality 417 U Random Total Protein 74.1 H Ur Random Sodium Ur Random Chloride Urine Creatinine 63.0 H Protein/Creatinin Ratio 1.170 POC Fluid pH Fluid Total Protein Fluid Albumin Body Fluid LDH Source Fluid Amylase Fluid Triglycerides 09/03/18 09/04/18 09/04/18 18:30 09:45 09:45 WBC 8.4 RBC 3.85 Hgb 11.5 Hct 33.0 MCV 85.7 MCH 29.9 MCHC 34.9 RDW 15.3 Plt Count 393 MPV 7.9 Absolute Neuts (auto) 6.2 Neutrophils % 73.9 Lymphocytes % 17.9 D Monocytes % 6.3 D Eosinophils % 1.3 D Basophils % 0.6 Nucleated RBC % 0 Sodium 136 Potassium 4.0 Chloride 98 Carbon Dioxide 31 Anion Gap 7 L BUN 33 H Creatinine 2.1 H Creat Clearance w eGFR 22.90 Random Glucose 116 H Calcium 8.6 Total Bilirubin 0.5 AST 15 ALT 12 L Alkaline Phosphatase 83 Total Protein 5.5 L Albumin 2.3 L Urine Color Urine Appearance Urine pH Ur Specific [place] Urine Protein Urine Glucose (UA) Urine Ketones Urine Blood Urine Nitrite Urine Bilirubin Urine Urobilinogen Ur Leukocyte Esterase Urine WBC (Auto) Urine RBC (Auto) Ur Epithelial Cells Urine Bacteria Urine Mucus Urine Osmolality U Random Total Protein Ur Random Sodium 60 Ur Random Chloride Urine Creatinine Protein/Creatinin Ratio POC Fluid pH Fluid Total Protein Fluid Albumin Body Fluid LDH Source Fluid Amylase Fluid Triglycerides Current Medications Generic Name Dose Route Start Last Admin Trade Name Freq PRN Reason Stop Dose Admin Acetaminophen 650 mg 09/01/18 16:40 Tylenol - PO Q6H PRN PAIN OR FEVER Albuterol Sulfate 1 amp 09/02/18 11:48 Ventolin 0.083% Nebulizer Soln - NEB Q4H PRN SHORT OF BREATH/WHEEZING Albuterol/Ipratropium 1 amp 09/02/18 12:00 09/04/18 13:20 Duoneb - NEB 1 amp RQID [facility]Y Administration Allopurinol 100 mg 09/02/18 10:00 09/04/18 09:09 Zyloprim - PO 100 mg DAILY [facility] Administration Amlodipine Besylate 10 mg 09/01/18 15:45 09/04/18 09:09 Norvasc - PO 10 mg DAILY [facility] Administration Calcium Carbonate/Cholecalciferol 2 tab 09/02/18 10:00 09/04/18 09:09 Os-Kip 500+D - PO 2 tab DAILY [facility] Administration Docusate Sodium 100 mg 09/01/18 22:00 09/04/18 09:09 Colace - PO 100 mg BID [facility] Administration Heparin Sodium (Porcine) 5,000 unit 08/31/18 06:00 09/04/18 13:13 Heparin - SQ 5,000 unit TID K[facility] Administration Levofloxacin 750 mg in 150 mls @ 100 mls/hr 09/01/18 17:00 09/03/18 17:42 Levaquin 750 Mg Premixed Ivpb - IVPB 100 mls/hr Q48H [facility] Administration Protocol Levothyroxine Sodium 75 mcg 09/02/18 07:00 09/04/18 06:19 Synthroid - PO 75 mcg DAILY@0700 [facility] Administration Melatonin 5 mg 09/04/18 07:45 Melatonin PO HS PRN INSOMNIA Nystatin 500,000 units 08/31/18 06:00 09/04/18 17:03 Nystatin Oral Suspension - PO Not Given Q6HPO ON LICENSE OF [facility] ASSESSMENT AND PLAN: 78 year old female with HTN, Gout, Asthma, Hypothyroidism, History of Breast Ca (for > 10 years ago without treatment), presented with L sided back/neck pain, admitted with L sided pneumonia with L pleural effusion. 1. Acute Respiratory Failure seocndary to IRENE Pneumonia with L effusion with COPD exacerbation (bilateral wheeze) SpO2 84% on RA today Afebrile, Hemodynamically stable. Wean off supplemental O2 as tolerated. Continue regular Bronchodilator Nebs. Continue Levofloxaicn ID and Pulm following s/p Thoracentesis 09/03/18 - 350cc fluid drained - appears exudative - sent for gram stain, culture, cytology - pending. 2. History of Breast Ca (diagnosed >10 years ago without treatment) - NM scan shows no bone mets, DJD spine and wrists, severely atrophic R kidney. Will await pleural fluid for cytology. 3. PATY on CKD 3 - Renal US shows chronic renal disease, no hydronephrosis. Nephrology consult appreciated. 4. Chronic Neck Pain - likely musculoskeletal. CT Neck with Contrast: No Abscess, Centrilobular emphysema Continue Flexeril prn. 5. HTN - controlled. Continue Norvasc 6. Oral Thrush - continue Nystatin Swish and Swallow 7. Gout - stable. Continue Allopurinol. 8. Hypothyroidism - continue Levothyroxine. DVT Px - resumed on Heparin SQ
[2018-09-04] MEDS: MELATONIN 5 MG TABLETS PO PRN (23:04)
[2018-09-05] MEDS: LEVOTHYROXINE NA 75 MCG TABLET (FP) PO SCH (06:02)
[2018-09-05] MEDS: NYSTATIN 500,000 UNITS/5 ML SUSPENSION PO SCH ×3 (06:02→16:59)
[2018-09-05] MEDS: HEPARIN NA (PORCINE) 5,000 UNITS/ML 1ML VIAL SQ SCH ×3 (06:02→21:48)
[2018-09-05] MEDS: ALBUTEROL SO4 2.5/IPRATROPIUM 0.5 INH SOL 3 ML VIAL.NEB. NEB SCH ×3 (08:40→16:06)
[2018-09-05] MEDS: DOCUSATE SODIUM 100 MG CAPSULE (FP) PO SCH ×2 (09:14→21:48)
[2018-09-05] MEDS: ALLOPURINOL 100 MG TABLET (FP) PO SCH (09:14)
[2018-09-05] MEDS: CALCIUM 500MG/VIT-D 200 UNITS COMBO TABLET (FP) PO SCH (09:14)
[2018-09-05] MEDS: amLODIPine BESYLATE 10 MG TABLET (FP) PO SCH (09:14)
--- NOTE | 2018-09-05 11:55 | PN ---
Progress Note (short form) - Note Progress Note: Breathing slightly improved. Some mild discomfort at the thoracentesis site. Intake & Output 09/02/18 09/03/18 09/04/18 09/05/18 23:59 23:59 23:59 23:59 Intake Total 1500 850 720 150 Balance 1500 850 720 150 Weight 151 lb Last Vital Signs Temp Pulse Resp BP Pulse Ox 97.8 F 89 20 133/73 93 L 09/05/18 08:19 09/05/18 08:19 09/05/18 09:00 09/05/18 08:19 09/05/18 09:00 Active Medications Acetaminophen (Tylenol -) 650 mg PO Q6H PRN PRN Reason: PAIN OR FEVER Albuterol Sulfate (Ventolin 0.083% Nebulizer Soln -) 1 amp NEB Q4H PRN PRN Reason: SHORT OF BREATH/WHEEZING Albuterol/Ipratropium (Duoneb -) 1 amp NEB RQID [facility] Last Admin: 09/04/18 20:04 Dose: 1 amp Allopurinol (Zyloprim -) 100 mg PO DAILY [facility] Last Admin: 09/05/18 09:14 Dose: 100 mg Amlodipine Besylate (Norvasc -) 10 mg PO DAILY [facility] Last Admin: 09/05/18 09:14 Dose: 10 mg Calcium Carbonate/Cholecalciferol (Os-Kip 500+D -) 2 tab PO DAILY [facility] Last Admin: 09/05/18 09:14 Dose: 2 tab Docusate Sodium (Colace -) 100 mg PO BID [facility] Last Admin: 09/05/18 09:14 Dose: 100 mg Heparin Sodium (Porcine) (Heparin -) 5,000 unit SQ TID [facility] Last Admin: 09/05/18 06:02 Dose: Not Given Levofloxacin (Levaquin 750 Mg Premixed Ivpb -) 750 mg in 150 mls @ 100 mls/hr IVPB Q48H [facility]; Protocol Last Admin: 09/03/18 17:42 Dose: 100 mls/hr Levothyroxine Sodium (Synthroid -) 75 mcg PO DAILY@0700 [facility] Last Admin: 09/05/18 06:02 Dose: 75 mcg Melatonin (Melatonin) 5 mg PO HS PRN PRN Reason: INSOMNIA Last Admin: 09/04/18 23:04 Dose: 5 mg Nystatin (Nystatin Oral Suspension -) 500,000 units PO Q6HPO [facility] Last Admin: 09/05/18 11:23 Dose: 500,000 units Gen: less tachypneic Heart: RRR Lung: less rhonchi, (+) wheezes Abd: soft, nontender Ext: no edema Laboratory Results - last 24 hr 09/03/18 09/03/18 09/03/18 13:20 17:00 18:30 Ur Random Potassium 21.2 Urine Creatinine 63.0 H POC Fluid pH 7.8 Fluid Total Protein 2.8 Fluid Albumin 1.4 Body Fluid LDH Source 101 Fluid Amylase 24 Fluid Triglycerides 26 A/P Lingular consolidation - r/o Pneumonia Left Pleural Effusion h/o Breast Ca Acute Kidney Injury Acute Asthma Exacerbation Hypothyroidism - Follow Pleural studies - Prednisone (+) wheeze today - ABX - continue inhaled bronchodilators standing and PRN - DVT prophylaxis Dr Ferrer
[2018-09-05] MEDS: predniSONE 20 MG TABLET (UD) PO SCH (13:19)
--- NOTE | 2018-09-05 15:21 | PN ---
Physical Exam: SUBJECTIVE: Patient seen and examined. Pt feels breathing is improved. No feels , some soreness around site of pleural tap. OBJECTIVE: Vital Signs Period Temp Pulse Resp BP Sys/Trevino Pulse Ox Last 24 Hr 97.8 F-98.5 F 87-96 20-20 133-162/66-82 93-95 Vital Signs Temp 98.5 F 09/05/18 13:25 Pulse 94 H 09/05/18 13:25 Resp 20 09/05/18 13:25 BP 148/82 09/05/18 13:25 Pulse Ox 93 L 09/05/18 09:00 Intake & Output 09/04/18 09/05/18 09/05/18 23:59 11:59 23:59 Intake Total 720 150 150 Balance 720 150 150 Intake: Oral 720 150 150 Other: Voiding Method Toilet Toilet # Unmeasured Voids Void 2 0 Bowel Movement No No # Bowel Movements 1 GENERAL: The patient is awake, alert, and fully oriented, in no acute distress. ENT: moist mucous membranes, NC-3L. NECK: Chronic torticollis. LUNGS: Reduced Breath sounds lung bases, no crackles HEART: Regular rate and rhythm, S1, S2 without murmur, rub or gallop. ABDOMEN: Soft, nontender, nondistended, normoactive bowel sounds, no guarding EXTREMITIES: 2+ pulses, warm, well-perfused, no edema. NEUROLOGICAL: Cranial nerves II through XII grossly intact. Able to move all extremities, no lateralizing signs, no facial asymmetry. Normal speech, gait not observed. PSYCH: Normal mood, normal affect. SKIN: Warm, dry, normal turgor, no rashes or lesions noted Laboratory Last Values WBC 8.4 K/mm3 (4.0-10.0) 09/04/18 09:45 RBC 3.85 M/mm3 (3.60-5.2) 09/04/18 09:45 Hgb 11.5 GM/dL (10.7-15.3) 09/04/18 09:45 Hct 33.0 % (32.4-45.2) 09/04/18 09:45 MCV 85.7 fl (80-96) 09/04/18 09:45 MCH 29.9 pg (25.7-33.7) 09/04/18 09:45 MCHC 34.9 g/dl (32.0-36.0) 09/04/18 09:45 RDW 15.3 % (11.6-15.6) 09/04/18 09:45 Plt Count 393 K/MM3 (134-434) 09/04/18 09:45 MPV 7.9 fl (7.5-11.1) 09/04/18 09:45 Absolute Neuts (auto) 6.2 K/mm3 (1.5-8.0) 09/04/18 09:45 Neutrophils % 73.9 % (42.8-82.8) 09/04/18 09:45 Lymphocytes % 17.9 % (8-40) D 09/04/18 09:45 Monocytes % 6.3 % (3.8-10.2) D 09/04/18 09:45 Eosinophils % 1.3 % (0-4.5) D 09/04/18 09:45 Basophils % 0.6 % (0-2.0) 09/04/18 09:45 Nucleated RBC % 0 % (0-0) 09/04/18 09:45 PT with INR 10.60 SEC (9.7-13.0) 09/01/18 06:15 INR 0.90 (0.83-1.09) 09/01/18 06:15 PTT (Actin FS) 25.5 SECONDS (25.2-36.5) 09/01/18 06:15 Sodium 136 mmol/L (136-145) 09/04/18 09:45 Potassium 4.0 mmol/L (3.5-5.1) 09/04/18 09:45 Chloride 98 mmol/L (98-107) 09/04/18 09:45 Carbon Dioxide 31 mmol/L (21-32) 09/04/18 09:45 Anion Gap 7 MMOL/L (8-16) L 09/04/18 09:45 BUN 33 mg/dL (7-18) H 09/04/18 09:45 Creatinine 2.1 mg/dL (0.55-1.3) H 09/04/18 09:45 Creat Clearance w eGFR 22.90 (>60) 09/04/18 09:45 Random Glucose 116 mg/dL (74-106) H 09/04/18 09:45 Serum Osmolality 285 mosm/kg (278-305) 08/30/18 17:30 Lactic Acid 0.7 mmol/L (0.4-2.0) 08/30/18 17:30 Calcium 8.6 mg/dL (8.5-10.1) 09/04/18 09:45 Phosphorus 4.2 mg/dL (2.5-4.9) 09/03/18 05:00 Magnesium 2.1 mg/dL (1.8-2.4) 09/03/18 05:00 Total Bilirubin 0.5 mg/dL (0.2-1) 09/04/18 09:45 AST 15 U/L (15-37) 09/04/18 09:45 ALT 12 U/L (13-61) L 09/04/18 09:45 Alkaline Phosphatase 83 U/L (45-117) 09/04/18 09:45 LD Total 187 U/L (84-246) 09/03/18 05:00 Total Protein 5.5 g/dl (6.4-8.2) L 09/04/18 09:45 Albumin 2.3 g/dl (3.4-5.0) L 09/04/18 09:45 TSH 1.93 uIU/ml (0.358-3.74) 08/31/18 06:40 Urine Color Ltyellow 09/03/18 18:30 Urine Appearance Slcloudy 09/03/18 18:30 Urine pH 5.0 (5.0-8.0) 09/03/18 18:30 Ur Specific [place] 1.012 (1.010-1.035) 09/03/18 18:30 Urine Protein 2+ (NEGATIVE) H 09/03/18 18:30 Urine Glucose (UA) Negative (NEGATIVE) 09/03/18 18:30 Urine Ketones Negative (NEGATIVE) 09/03/18 18:30 Urine Blood Negative (NEGATIVE) 09/03/18 18:30 Urine Nitrite Negative (NEGATIVE) 09/03/18 18:30 Urine Bilirubin Negative (<2.0 mg/dL) 09/03/18 18:30 Urine Urobilinogen Negative mg/dL (0.2-1.0) 09/03/18 18:30 Ur Leukocyte Esterase Negative (NEGATIVE) 09/03/18 18:30 Urine WBC (Auto) 6 /hpf (3-5) 09/03/18 18:30 Urine RBC (Auto) 1 /hpf (0-3) 09/03/18 18:30 Ur Epithelial Cells Many /HPF (FEW) 09/03/18 18:30 Urine Bacteria Rare /hpf (NONE SEEN) 09/03/18 18:30 Urine Mucus Rare 09/03/18 18:30 Urine Osmolality 417 mosm/kg (300-900) 09/03/18 18:30 U Random Total Protein 74.1 mg/dl (0-11.9) H 09/03/18 18:30 Ur Random Sodium 61 MMOL/L (40-220) 09/03/18 18:30 Ur Random Potassium 21.2 MMOL/L (12-129) 09/03/18 18:30 Ur Random Chloride 68 MMOL/L (110-250) L 09/03/18 18:30 Urine Creatinine 63.0 mg/dL (30-50) H 09/03/18 18:30 Protein/Creatinin Ratio 1.170 MG/DL 09/03/18 18:30 Fluid Source Pleural fluid 09/03/18 14:00 POC Fluid pH 7.8 (Not Estab.) 09/03/18 13:20 Fluid WBC 723 /mm3 09/03/18 14:00 Fluid RBC 857 /mm3 09/03/18 14:00 Fluid Neutrophils 25 % 09/03/18 14:00 Fluid Lymphocytes 17 % 09/03/18 14:00 Fluid Total Protein 2.8 g/dL (.) 09/03/18 13:20 Fluid Albumin 1.4 g/dL (.) 09/03/18 13:20 Body Fluid LDH Source 101 IU/L (.) 09/03/18 13:20 Fluid Amylase 24 U/L (.) 09/03/18 13:20 Fluid Triglycerides 26 mg/dL (.) 09/03/18 13:20 Pleural Monocytes 16 % 09/03/18 14:00 Pleural Eosinophils 1 % 09/03/18 14:00 Pleural Macrophages 38 % 09/03/18 14:00 Pleural Mesothelial 3 % 09/03/18 14:00 Influenza A (Rapid) Negative 08/30/18 17:40 Influenza B (Rapid) Negative 08/30/18 17:40 Group A Strep Rapid Negative 08/30/18 17:40 Laboratory Results - last 24 hr 09/03/18 09/03/18 13:20 18:30 Ur Random Potassium 21.2 POC Fluid pH 7.8 Active Medications Generic Name Dose Route Start Last Admin Trade Name Freestella PRN Reason Stop Dose Admin Acetaminophen 650 mg 09/01/18 16:40 Tylenol - PO Q6H PRN PAIN OR FEVER Albuterol Sulfate 1 amp 09/02/18 11:48 Ventolin 0.083% Nebulizer Soln - NEB Q4H PRN SHORT OF BREATH/WHEEZING Albuterol/Ipratropium 1 amp 09/02/18 12:00 09/05/18 12:05 Duoneb - NEB 1 amp RQID [facility] Administration Allopurinol 100 mg 09/02/18 10:00 09/05/18 09:14 Zyloprim - PO 100 mg DAILY [facility] Administration Amlodipine Besylate 10 mg 09/01/18 15:45 09/05/18 09:14 Norvasc - PO 10 mg DAILY [facility] Administration Calcium Carbonate/Cholecalciferol 2 tab 09/02/18 10:00 09/05/18 09:14 Os-Kip 500+D - PO 2 tab DAILY [facility] Administration Docusate Sodium 100 mg 09/01/18 22:00 09/05/18 09:14 Colace - PO 100 mg BID [facility] Administration Heparin Sodium (Porcine) 5,000 unit 08/31/18 06:00 09/05/18 13:19 Heparin - SQ 5,000 unit TID [facility] Administration Levofloxacin 750 mg in 150 mls @ 100 mls/hr 09/01/18 17:00 09/03/18 17:42 Levaquin 750 Mg Premixed Ivpb - IVPB 100 mls/hr Q48H [facility] Administration Protocol Levothyroxine Sodium 75 mcg 09/02/18 07:00 09/05/18 06:02 Synthroid - PO 75 mcg DAILY@0700 [facility] Administration Melatonin 5 mg 09/04/18 07:45 09/04/18 23:04 Melatonin PO 5 mg HS PRN Administration INSOMNIA Nystatin 500,000 units 08/31/18 06:00 09/05/18 11:23 Nystatin Oral Suspension - PO 500,000 units Q6HPO [facility] Administration Prednisone 40 mg 09/05/18 12:00 09/05/18 13:19 Deltasone - PO 40 mg DAILY [facility] Administration ASSESSMENT/PLAN: 78 y/o F with HTN, Gout, Asthma, Hypothyroidism, Breast Cancer (+10 years, [facility] tx) was brought from [facility] with Chronic Neck pain Left Sided Pleural Effusion with consolidation now s/p thoracocentesis -Pleural fluid exudative per Light's criteria -CXR noted with significant left sided effusion vs infiltrate -With history of untreated malignancy could be a malignant effusion -Consult pulmonology, consider steroids if wheezing persists -IR percutaneous thoracentesis, 350 cc serous fluid drained, f/u CXR improved effusion, no pneumothorax noted -CT noted with effusion and consolidation -Levaquin renally dosed -day 5 -ID consult appreciated Hx untreated breast CA -Heme/Onc consulted -Bone scan noted without any bony mets Chronic Neck Pain -Improved -Likely musculoskeletal in nature -CT without any signs of mass/abscess collection PATY vs CKD -BUN/Cr 24/1.9, most recent records found from outside institution Creatinine 1.6 -Renal US with atrophic right kidney, b/l echogenic kidneys, no signs of hydro -Trend BMP -Nephrology consult appreciated -Continue to ensure adequate hydration HTN -Norvasc 10 mg PO Daily Oral Thrush -Nystatin swish and swallow Asthma -DuoNebs PRN -Continue home Symbicort DVT Prophylaxis -Heparin 5000 units SQ TID FEN -Fluids: none -Electrolytes: No electrolyte abnormalities, BMP in AM -Nutrition: Na Controlled diet Visit type - Emergency Visit Emergency Visit: Yes ED Registration Date: 08/30/18 Care time: The patient presented to the Emergency Department on the above date and was hospitalized for further evaluation of their emergent condition. - New Patient This patient is new to me today: Yes Date on this admission: 09/05/18 - Critical Care Critical Care patient: No - Discharge Referral Referred to [facility] Med P.C.: No
--- NOTE | 2018-09-05 17:25 | PN ---
Teaching Attending Note Name of Resident: Juany Kirk ATTENDING PHYSICIAN STATEMENT I saw and evaluated the patient. I reviewed the resident's note and discussed the case with the resident. I agree with the resident's findings and plan as documented. SUBJECTIVE: Feeling much improved, les SOB, less cough. No fever. OBJECTIVE: Afebrile, Hemodynamically Stable. Last Vital Signs Temp Pulse Resp BP Pulse Ox 98.5 F 94 H 20 148/82 93 L 09/05/18 13:25 09/05/18 13:25 09/05/18 13:25 09/05/18 13:25 09/05/18 09:00 HEENT - Afebrile, Hemodynamically Stable Heart - S1, S2, RRR Lungs - Good air entry bilaterally. Abdomen - soft, non-tender. Reducible hernias bilateral lower abdomen. Bowel Sounds normal. Extremities - no calf swelling/tenderness. No edema. Laboratory Results - last 24 hr 09/03/18 18:30 Ur Random Potassium 21.2 Current Medications Generic Name Dose Route Start Last Admin Trade Name Codyq PRN Reason Stop Dose Admin Acetaminophen 650 mg 09/01/18 16:40 Tylenol - PO Q6H PRN PAIN OR FEVER Albuterol Sulfate 1 amp 09/02/18 11:48 Ventolin 0.083% Nebulizer Soln - NEB Q4H PRN SHORT OF BREATH/WHEEZING Albuterol/Ipratropium 1 amp 09/02/18 12:00 09/05/18 16:06 Duoneb - NEB 1 amp RQID [facility] Administration Allopurinol 100 mg 09/02/18 10:00 09/05/18 09:14 Zyloprim - PO 100 mg DAILY [facility] Administration Amlodipine Besylate 10 mg 09/01/18 15:45 09/05/18 09:14 Norvasc - PO 10 mg DAILY [facility] Administration Calcium Carbonate/Cholecalciferol 2 tab 09/02/18 10:00 09/05/18 09:14 Os-Kip 500+D - PO 2 tab DAILY [facility] Administration Docusate Sodium 100 mg 09/01/18 22:00 09/05/18 09:14 Colace - PO 100 mg BID [facility] Administration Heparin Sodium (Porcine) 5,000 unit 08/31/18 06:00 09/05/18 13:19 Heparin - SQ 5,000 unit TID [facility] Administration Levofloxacin 750 mg in 150 mls @ 100 mls/hr 09/01/18 17:00 09/05/18 16:41 Levaquin 750 Mg Premixed Ivpb - IVPB 100 mls/hr Q48H [facility] Administration Protocol Levothyroxine Sodium 75 mcg 09/02/18 07:00 09/05/18 06:02 Synthroid - PO 75 mcg DAILY@0700 [facility] Administration Melatonin 5 mg 09/04/18 07:45 09/04/18 23:04 Melatonin PO 5 mg HS PRN Administration INSOMNIA Nystatin 500,000 units 08/31/18 06:00 09/05/18 16:59 Nystatin Oral Suspension - PO 500,000 units Q6HPO [facility] Administration Prednisone 40 mg 09/05/18 12:00 09/05/18 13:19 Deltasone - PO 40 mg DAILY [facility] Administration ASSESSMENT AND PLAN: 78 year old female with HTN, Gout, Asthma, Hypothyroidism, History of Breast Ca (for > 10 years ago without treatment), presented with L sided back/neck pain, admitted with L sided pneumonia with L pleural effusion. 1. Acute Respiratory Failure secondary to IRENE Pneumonia with L sided effusion with COPD exacerbation (bilateral wheeze) SpO2 95% on 2L, previously 84% on RA Afebrile, Hemodynamically stable. Wean off supplemental O2 as tolerated. Continue regular Bronchodilator Nebs. Started on Prednisone 40mg by Pulm. Continue Levofloxaicn ID and Pulm following s/p Thoracentesis 09/03/18 - 350cc fluid drained - appears exudative - sent for gram stain, culture, cytology - pending. 2. History of Breast Cancer (diagnosed >10 years ago without treatment) - NM scan shows no bone mets, DJD spine and wrists, severely atrophic R kidney. Will await pleural fluid for cytology. 3. PATY on CKD 3 - Renal US shows chronic renal disease, no hydronephrosis. Nephrology consult appreciated. Creat 2.1 - likely progression of CKD (Creat 1.6 at baseline) 4. Chronic Neck Pain - likely musculoskeletal. CT Neck with Contrast: No Abscess, Centrilobular emphysema Continue Flexeril prn. 5. HTN - controlled. Continue Norvasc 6. Oral Thrush - continue Nystatin Swish and Swallow 7. Gout - stable. Continue Allopurinol. 8. Hypothyroidism - continue Levothyroxine. DVT Px - Heparin SQ
--- NOTE | 2018-09-05 19:43 | PN ---
Progress Note (short form) - Note Progress Note: ckd srable renal function Current Medications Acetaminophen (Tylenol -) 650 mg PO Q6H PRN PRN Reason: PAIN OR FEVER Albuterol Sulfate (Ventolin 0.083% Nebulizer Soln -) 1 amp NEB Q4H PRN PRN Reason: SHORT OF BREATH/WHEEZING Albuterol/Ipratropium (Duoneb -) 1 amp NEB RQID [facility] Last Admin: 09/05/18 16:06 Dose: 1 amp Allopurinol (Zyloprim -) 100 mg PO DAILY [facility] Last Admin: 09/05/18 09:14 Dose: 100 mg Amlodipine Besylate (Norvasc -) 10 mg PO DAILY [facility] Last Admin: 09/05/18 09:14 Dose: 10 mg Calcium Carbonate/Cholecalciferol (Os-Kip 500+D -) 2 tab PO DAILY [facility] Last Admin: 09/05/18 09:14 Dose: 2 tab Docusate Sodium (Colace -) 100 mg PO BID [facility] Last Admin: 09/05/18 21:48 Dose: 100 mg Heparin Sodium (Porcine) (Heparin -) 5,000 unit SQ TID [facility] Last Admin: 09/05/18 21:48 Dose: 5,000 unit Levofloxacin (Levaquin 750 Mg Premixed Ivpb -) 750 mg in 150 mls @ 100 mls/hr IVPB Q48H [facility]; Protocol Last Admin: 09/05/18 16:41 Dose: 100 mls/hr Levothyroxine Sodium (Synthroid -) 75 mcg PO DAILY@0700 [facility] Last Admin: 09/05/18 06:02 Dose: 75 mcg Melatonin (Melatonin) 5 mg PO HS PRN PRN Reason: INSOMNIA Last Admin: 09/05/18 21:50 Dose: 5 mg Nystatin (Nystatin Oral Suspension -) 500,000 units PO Q6HPO [facility] Last Admin: 09/05/18 16:59 Dose: 500,000 units Prednisone (Deltasone -) 40 mg PO DAILY [facility] Last Admin: 09/05/18 13:19 Dose: 40 mg Last Vital Signs Temp Pulse Resp BP Pulse Ox 98.4 F 92 H 20 142/78 93 L 09/05/18 17:00 09/05/18 17:00 09/05/18 17:00 09/05/18 17:00 09/05/18 09:00 CBC, BMP 09/04/18 09:45 09/04/18 09:45
[2018-09-05] MEDS: MELATONIN 5 MG TABLETS PO PRN (21:50)
[2018-09-06] MEDS: NYSTATIN 500,000 UNITS/5 ML SUSPENSION PO SCH ×5 (02:07→23:19)
[2018-09-06] MEDS: LEVOTHYROXINE NA 75 MCG TABLET (FP) PO SCH (06:03)
[2018-09-06] MEDS: HEPARIN NA (PORCINE) 5,000 UNITS/ML 1ML VIAL SQ SCH ×3 (06:04→21:29)
[2018-09-06 06:52] LABS: BASO % 0.4 % (0-2.0); HEMATOCRIT 33.6 % (32.4-45.2); HEMOGLOBIN 10.9 GM/dL (10.7-15.3); LYMPH % 8.9 % (8-40); MCHC 32.5 g/dl (32.0-36.0); MEAN PLT VOLUME 8.3 fl (7.5-11.1); MONO % 2.2 % (3.8-10.2); NEUT % 88.5 % (42.8-82.8); PLATELET COUNT 403 K/MM3 (134-434); RDW 15.3 % (11.6-15.6); WHITE BLOOD COUNT 6.6 K/mm3 (4.0-10.0)
[2018-09-06] MEDS: DOCUSATE SODIUM 100 MG CAPSULE (FP) PO SCH ×2 (09:00→21:29)
[2018-09-06] MEDS: amLODIPine BESYLATE 10 MG TABLET (FP) PO SCH (09:00)
[2018-09-06] MEDS: ALLOPURINOL 100 MG TABLET (FP) PO SCH (09:00)
[2018-09-06] MEDS: CALCIUM 500MG/VIT-D 200 UNITS COMBO TABLET (FP) PO SCH (09:01)
[2018-09-06] MEDS: predniSONE 20 MG TABLET (UD) PO SCH (09:01)
[2018-09-06] MEDS: ALBUTEROL SO4 2.5/IPRATROPIUM 0.5 INH SOL 3 ML VIAL.NEB. NEB SCH ×4 (09:17→20:15)
--- NOTE | 2018-09-06 11:37 | PN ---
Progress Note (short form) - Note Progress Note: Breathing continues to slowly improve. Resolution of the mild discomfort at the thoracentesis site. Intake & Output 09/03/18 09/04/18 09/05/18 09/06/18 23:59 23:59 23:59 23:59 Intake Total 850 720 400 0 Balance 850 720 400 0 Last Vital Signs Temp Pulse Resp BP Pulse Ox 98.9 F 90 20 140/83 80 L 09/06/18 08:25 09/06/18 08:25 09/06/18 09:00 09/06/18 08:25 09/06/18 09:00 Active Medications Acetaminophen (Tylenol -) 650 mg PO Q6H PRN PRN Reason: PAIN OR FEVER Albuterol Sulfate (Ventolin 0.083% Nebulizer Soln -) 1 amp NEB Q4H PRN PRN Reason: SHORT OF BREATH/WHEEZING Albuterol/Ipratropium (Duoneb -) 1 amp NEB RQID [facility] Last Admin: 09/06/18 09:17 Dose: 1 amp Allopurinol (Zyloprim -) 100 mg PO DAILY [facility] Last Admin: 09/06/18 09:00 Dose: 100 mg Amlodipine Besylate (Norvasc -) 10 mg PO DAILY [facility] Last Admin: 09/06/18 09:00 Dose: 10 mg Calcium Carbonate/Cholecalciferol (Os-Kip 500+D -) 2 tab PO DAILY [facility] Last Admin: 09/06/18 09:01 Dose: 2 tab Docusate Sodium (Colace -) 100 mg PO BID [facility] Last Admin: 09/06/18 09:00 Dose: 100 mg Heparin Sodium (Porcine) (Heparin -) 5,000 unit SQ TID [facility] Last Admin: 09/06/18 06:04 Dose: 5,000 unit Levothyroxine Sodium (Synthroid -) 75 mcg PO DAILY@0700 [facility] Last Admin: 09/06/18 06:03 Dose: 75 mcg Melatonin (Melatonin) 5 mg PO HS PRN PRN Reason: INSOMNIA Last Admin: 09/05/18 21:50 Dose: 5 mg Nystatin (Nystatin Oral Suspension -) 500,000 units PO Q6HPO [facility] Last Admin: 09/06/18 11:31 Dose: 500,000 units Prednisone (Deltasone -) 40 mg PO DAILY [facility] Last Admin: 09/06/18 09:01 Dose: 40 mg Gen: less tachypneic Heart: RRR Lung: less rhonchi, less wheezes Abd: soft, nontender Ext: no edema Laboratory Results - last 24 hr 09/06/18 05:25 WBC 6.6 RBC 3.90 Hgb 10.9 Hct 33.6 MCV 86.0 MCH 28.0 MCHC 32.5 RDW 15.3 Plt Count 403 MPV 8.3 Absolute Neuts (auto) 5.9 Neutrophils % 88.5 H Lymphocytes % 8.9 D Monocytes % 2.2 L Eosinophils % 0.0 D Basophils % 0.4 Nucleated RBC % 0 A/P Lingular consolidation - r/o Pneumonia Left Pleural Effusion h/o Breast Ca Acute Kidney Injury Acute Asthma Exacerbation Hypothyroidism - Follow Pleural studies - Prednisone - ABX - continue inhaled bronchodilators standing and PRN - DVT prophylaxis - May likely need home O2: Check Pre and Post ambulation O2 saturation Dr Ferrer
[2018-09-06 12:32] LABS: ALBUMIN 2.6 g/dl (3.4-5.0); ALK PHOS 78 U/L (45-117); ANION GAP 6 MMOL/L (8-16); BILIRUBIN,TOTAL 0.3 mg/dL (0.2-1); BLOOD UREA NITROGEN 36 mg/dL (7-18); CALCIUM 9.2 mg/dL (8.5-10.1); CHLORIDE 98 mmol/L (98-107); CO2 33 mmol/L (21-32); CREATININE 2.6 mg/dL (0.55-1.3); GLUCOSE,RANDOM 122 mg/dL (74-106); PHOSPHOROUS 4.2 mg/dL (2.5-4.9); SGOT/AST 15 U/L (15-37); SGPT/ALT 15 U/L (13-61); SODIUM 137 mmol/L (136-145)
--- NOTE | 2018-09-06 16:53 | PN ---
Progress Note (short form) - Note Progress Note: UBJECTIVE: Feeling much improved, less SOB. No fever. OBJECTIVE: Afebrile, Hemodynamically Stable. Last Vital Signs Temp Pulse Resp BP Pulse Ox 98.9 F 121 H 20 140/83 92 L 09/06/18 08:25 09/06/18 15:18 09/06/18 09:00 09/06/18 08:25 09/06/18 15:18 HEENT - Afebrile, Hemodynamically Stable Heart - S1, S2 Lungs - Good air entry bilaterally. Abdomen - soft, non-tender. Reducible hernias bilateral lower abdomen. Bowel Sounds normal. Extremities - no calf swelling/tenderness. No edema. Laboratory Results - last 24 hr 09/06/18 09/06/18 05:25 05:25 WBC 6.6 RBC 3.90 Hgb 10.9 Hct 33.6 MCV 86.0 MCH 28.0 MCHC 32.5 RDW 15.3 Plt Count 403 MPV 8.3 Absolute Neuts (auto) 5.9 Neutrophils % 88.5 H Lymphocytes % 8.9 D Monocytes % 2.2 L Eosinophils % 0.0 D Basophils % 0.4 Nucleated RBC % 0 Sodium 137 Potassium 5.0 Chloride 98 Carbon Dioxide 33 H Anion Gap 6 L BUN 36 H Creatinine 2.6 H Creat Clearance w eGFR 17.90 Random Glucose 122 H Calcium 9.2 Phosphorus 4.2 Magnesium 2.0 Total Bilirubin 0.3 AST 15 ALT 15 Alkaline Phosphatase 78 Total Protein 6.0 L Albumin 2.6 L Current Medications Generic Name Dose Route Start Last Admin Trade Name Freq PRN Reason Stop Dose Admin Acetaminophen 650 mg 09/01/18 16:40 Tylenol - PO Q6H PRN PAIN OR FEVER Albuterol Sulfate 1 amp 09/02/18 11:48 Ventolin 0.083% Nebulizer Soln - NEB Q4H PRN SHORT OF BREATH/WHEEZING Albuterol/Ipratropium 1 amp 09/02/18 12:00 09/06/18 15:21 Duoneb - NEB 1 amp RQID [facility] Administration Allopurinol 100 mg 09/02/18 10:00 09/06/18 09:00 Zyloprim - PO 100 mg DAILY [facility] Administration Amlodipine Besylate 10 mg 09/01/18 15:45 09/06/18 09:00 Norvasc - PO 10 mg DAILY [facility] Administration Calcium Carbonate/Cholecalciferol 2 tab 09/02/18 10:00 09/06/18 09:01 Os-Kip 500+D - PO 2 tab DAILY [facility] Administration Docusate Sodium 100 mg 09/01/18 22:00 09/06/18 09:00 Colace - PO 100 mg BID [facility] Administration Heparin Sodium (Porcine) 5,000 unit 08/31/18 06:00 09/06/18 14:11 Heparin - SQ 5,000 unit TID [facility] Administration Levothyroxine Sodium 75 mcg 09/02/18 07:00 09/06/18 06:03 Synthroid - PO 75 mcg DAILY@0700 [facility] Administration Melatonin 5 mg 09/04/18 07:45 09/05/18 21:50 Melatonin PO 5 mg HS PRN Administration INSOMNIA Nystatin 500,000 units 08/31/18 06:00 09/06/18 11:31 Nystatin Oral Suspension - PO 500,000 units Q6HPO [facility] Administration Prednisone 40 mg 09/05/18 12:00 09/06/18 09:01 Deltasone - PO 40 mg DAILY [facility] Administration ASSESSMENT AND PLAN: 78 year old female with HTN, Gout, Asthma, Hypothyroidism, History of Breast Ca (for > 10 years ago without treatment), presented with L sided back/neck pain, admitted with L sided pneumonia with L pleural effusion. 1. Acute Respiratory Failure secondary to IRENE Pneumonia with L sided effusion with COPD exacerbation (bilateral wheeze) SpO2 94% on 2L, previously 84% on RA Afebrile, Hemodynamically stable. Wean off supplemental O2 as tolerated - may require some O2 on discharge. Continue regular Bronchodilator Nebs. Continue on Prednisone 40mg started by Pulm 09/05/18. Continue Levofloxacin - day 6 - q48h, will give 1 more dose 09/07/18) ID and Pulm following s/p Thoracentesis 09/03/18 - 350cc fluid drained - likely parapneumonic - Gram stain/culture neg so far. Cytology - pending. 2. History of Breast Mass ( >10 years without treatment) - NM scan shows no bone mets, DJD spine and wrists, severely atrophic R kidney. Will await pleural fluid for cytology. 3. PATY on CKD 3 - Renal US shows chronic renal disease, no hydronephrosis. Nephrology consult appreciated. Creat 2.6, up from 2.1 - likely progression of CKD (Creat 1.6 at baseline) - will defer to Nephrology regarding further work-up/intervention. 4. Chronic Neck Pain - likely musculoskeletal. CT Neck with Contrast: No Abscess, Centrilobular emphysema Continue Flexeril prn. 5. HTN - controlled. Continue Norvasc 6. Oral Thrush - continue Nystatin Swish and Swallow 7. Gout - stable. Continue Allopurinol. 8. Hypothyroidism - continue Levothyroxine. DVT Px - Heparin SQ PPI - Protonix. Visit type - Emergency Visit Emergency Visit: Yes ED Registration Date: 08/30/18 Care time: The patient presented to the Emergency Department on the above date and was hospitalized for further evaluation of their emergent condition. - New Patient This patient is new to me today: No - Critical Care Critical Care patient: No - Discharge Referral Referred to [facility] No
[2018-09-06] MEDS: PANTOPRAZOLE 40 MG TABLET (FP) PO SCH (17:12)
[2018-09-06] MEDS: MELATONIN 5 MG TABLETS PO PRN (21:35)
--- NOTE | 2018-09-06 23:03 | PN ---
Progress Note (short form) - Note Progress Note: ckd srable renal function Current Medications Acetaminophen (Tylenol -) 650 mg PO Q6H PRN PRN Reason: PAIN OR FEVER Albuterol Sulfate (Ventolin 0.083% Nebulizer Soln -) 1 amp NEB Q4H PRN PRN Reason: SHORT OF BREATH/WHEEZING Albuterol/Ipratropium (Duoneb -) 1 amp NEB RQID [facility] Last Admin: 09/06/18 20:15 Dose: 1 amp Allopurinol (Zyloprim -) 100 mg PO DAILY [facility] Last Admin: 09/06/18 09:00 Dose: 100 mg Amlodipine Besylate (Norvasc -) 10 mg PO DAILY [facility] Last Admin: 09/06/18 09:00 Dose: 10 mg Calcium Carbonate/Cholecalciferol (Os-Kip 500+D -) 2 tab PO DAILY [facility] Last Admin: 09/06/18 09:01 Dose: 2 tab Docusate Sodium (Colace -) 100 mg PO BID [facility] Last Admin: 09/06/18 21:29 Dose: 100 mg Heparin Sodium (Porcine) (Heparin -) 5,000 unit SQ TID [facility] Last Admin: 09/06/18 21:29 Dose: 5,000 unit Levothyroxine Sodium (Synthroid -) 75 mcg PO DAILY@0700 [facility] Last Admin: 09/06/18 06:03 Dose: 75 mcg Melatonin (Melatonin) 5 mg PO HS PRN PRN Reason: INSOMNIA Last Admin: 09/06/18 21:35 Dose: 5 mg Nystatin (Nystatin Oral Suspension -) 500,000 units PO Q6HPO [facility] Last Admin: 09/06/18 17:12 Dose: 500,000 units Pantoprazole Sodium (Protonix -) 40 mg PO DAILY [facility] Last Admin: 09/06/18 17:12 Dose: 40 mg Prednisone (Deltasone -) 40 mg PO DAILY [facility] Last Admin: 09/06/18 09:01 Dose: 40 mg Last Vital Signs Temp Pulse Resp BP Pulse Ox 98.1 F 98 H 24 H 136/84 92 L 09/06/18 18:00 09/06/18 18:00 09/06/18 18:00 09/06/18 18:00 09/06/18 15:18 Lungs clear heart reg abd soft ext no edema CBC, BMP 09/06/18 05:25 09/06/18 05:25 IMP ashlie renal function worsening this is not progression of CKD more likely volume depletion from her current clinical situation Plan- will try more hydration IV follow bp in am
[2018-09-06] MEDS ORDERED: SODIUM CHLORIDE 0.45% 1,000 ML IV SCH (23:15)
[2018-09-07] MEDS: NYSTATIN 500,000 UNITS/5 ML SUSPENSION PO SCH ×2 (05:14→11:34)
[2018-09-07] MEDS: HEPARIN NA (PORCINE) 5,000 UNITS/ML 1ML VIAL SQ SCH ×3 (05:15→21:11)
[2018-09-07] MEDS: LEVOTHYROXINE NA 75 MCG TABLET (FP) PO SCH (06:02)
[2018-09-07] MEDS: ALBUTEROL SO4 2.5/IPRATROPIUM 0.5 INH SOL 3 ML VIAL.NEB. NEB SCH ×4 (07:38→20:48)
[2018-09-07] MEDS: CALCIUM 500MG/VIT-D 200 UNITS COMBO TABLET (FP) PO SCH (09:09)
[2018-09-07] MEDS: DOCUSATE SODIUM 100 MG CAPSULE (FP) PO SCH ×2 (09:09→21:10)
[2018-09-07] MEDS: ALLOPURINOL 100 MG TABLET (FP) PO SCH (09:09)
[2018-09-07] MEDS: amLODIPine BESYLATE 10 MG TABLET (FP) PO SCH (09:09)
[2018-09-07] MEDS: predniSONE 20 MG TABLET (UD) PO SCH (09:09)
[2018-09-07] MEDS: PANTOPRAZOLE 40 MG TABLET (FP) PO SCH (09:09)
[2018-09-07 09:14] LABS: ANION GAP 8 MMOL/L (8-16); BLOOD UREA NITROGEN 43 mg/dL (7-18); CALCIUM 9.1 mg/dL (8.5-10.1); CHLORIDE 97 mmol/L (98-107); CO2 31 mmol/L (21-32); CREATININE 2.4 mg/dL (0.55-1.3); GLUCOSE,RANDOM 124 mg/dL (74-106); POTASSIUM 4.1 mmol/L (3.5-5.1); SODIUM 136 mmol/L (136-145)
--- NOTE | 2018-09-07 10:49 | PN ---
Progress Note (short form) - Note Progress Note: Breathing continues to slowly improve. Resolution of the mild discomfort at the thoracentesis site. Intake & Output 09/04/18 09/05/18 09/06/18 09/07/18 23:59 23:59 23:59 23:59 Intake Total 118 523 5921 1031 Balance 186 118 9705 1031 Last Vital Signs Temp Pulse Resp BP Pulse Ox 97.9 F 86 20 160/96 93 L 09/07/18 10:00 09/07/18 10:00 09/07/18 10:00 09/07/18 10:00 09/07/18 09:00 Active Medications Acetaminophen (Tylenol -) 650 mg PO Q6H PRN PRN Reason: PAIN OR FEVER Albuterol Sulfate (Ventolin 0.083% Nebulizer Soln -) 1 amp NEB Q4H PRN PRN Reason: SHORT OF BREATH/WHEEZING Albuterol/Ipratropium (Duoneb -) 1 amp NEB RQID [facility] Last Admin: 09/07/18 07:38 Dose: 1 amp Allopurinol (Zyloprim -) 100 mg PO DAILY [facility] Last Admin: 09/07/18 09:09 Dose: 100 mg Amlodipine Besylate (Norvasc -) 10 mg PO DAILY [facility] Last Admin: 09/07/18 09:09 Dose: 10 mg Calcium Carbonate/Cholecalciferol (Os-Kip 500+D -) 2 tab PO DAILY [facility] Last Admin: 09/07/18 09:09 Dose: 2 tab Docusate Sodium (Colace -) 100 mg PO BID [facility] Last Admin: 09/07/18 09:09 Dose: 100 mg Heparin Sodium (Porcine) (Heparin -) 5,000 unit SQ TID [facility] Last Admin: 09/07/18 05:15 Dose: 5,000 unit Sodium Chloride (1/2 Normal Saline) 1,000 mls @ 83 mls/hr IV ASDIR [facility] Last Admin: 09/06/18 23:32 Dose: 83 mls/hr Levothyroxine Sodium (Synthroid -) 75 mcg PO DAILY@0700 [facility] Last Admin: 09/07/18 06:02 Dose: 75 mcg Melatonin (Melatonin) 5 mg PO HS PRN PRN Reason: INSOMNIA Last Admin: 09/06/18 21:35 Dose: 5 mg Nystatin (Nystatin Oral Suspension -) 500,000 units PO Q6HPO [facility] Last Admin: 09/07/18 05:14 Dose: 500,000 units Pantoprazole Sodium (Protonix -) 40 mg PO DAILY [facility] Last Admin: 09/07/18 09:09 Dose: 40 mg Prednisone (Deltasone -) 40 mg PO DAILY [facility] Last Admin: 09/07/18 09:09 Dose: 40 mg Gen: less tachypneic Heart: RRR Lung: less rhonchi, No wheezes Abd: soft, nontender Ext: no edema Laboratory Results - last 24 hr 09/06/18 09/07/18 05:25 08:36 Sodium 137 136 Potassium 5.0 4.1 Chloride 98 97 L Carbon Dioxide 33 H 31 Anion Gap 6 L 8 BUN 36 H 43 H Creatinine 2.6 H 2.4 H Creat Clearance w eGFR 17.90 19.63 Random Glucose 122 H 124 H Calcium 9.2 9.1 Phosphorus 4.2 Magnesium 2.0 Total Bilirubin 0.3 AST 15 ALT 15 Alkaline Phosphatase 78 Total Protein 6.0 L Albumin 2.6 L A/P Lingular consolidation - r/o Pneumonia Left Pleural Effusion h/o Breast Ca Acute Kidney Injury Acute Asthma Exacerbation Hypothyroidism - Follow Pleural studies - Prednisone 40mg x 4 days on discharge - ABX - continue inhaled bronchodilators standing and PRN - DVT prophylaxis - May likely need home O2: Check Pre and Post ambulation O2 saturation - Would discharge on LAMA/ICS combination inhaler with ZAIN Q4 PRN Dr Ferrer
--- NOTE | 2018-09-07 13:08 | PATH ---
Cytology Non-Gynecological Report Patient Name: NIKI HERMAN Med. Rec. #: [id number] /Age/Gender: 1940 (Age: 78) / F Account: [id number] Location: [facility] Taken: 09/03/2018 Received: 09/04/2018 Reported: 09/07/2018 Physicians: Parminder Richards M.D. PHYSICIAN EMERGENCY DEPT Specimen(s) Received A: PLEURAL FLUID LEFT B: PLEURAL FLUID LEFT Clinical History Pleural effusion Final Diagnosis A & B. PLEURAL FLUID, LEFT, THORACENTESIS: SATISFACTORY FOR EVALUATION NO MALIGNANT CELLS IDENTIFIED. MESOTHELIAL CELLS, FEW MACROPHAGES AND FEW LYMPHOCYTES PRESENT. Electronically Signed Debora May M.D. Gross Description A. Approximately 50 cc of yellow fluid received fixed in 50% alcohol. One cytofunnel prepared and Pap stained. One cellblock prepared. B. Approximately 1200 cc of yellow fluid received fresh. One cytofunnel prepared and Pap stained. One cellblock prepared.
--- NOTE | 2018-09-07 13:23 | PN ---
Physical Exam: SUBJECTIVE: Patient seen and examined this AM. She states she is feeling better and thinks she is ready to go home. Discussed with patient that she will need home oxygen and we are waiting on her renal function to improve. OBJECTIVE: Vital Signs Period Temp Pulse Resp BP Sys/Trevino Pulse Ox Last 24 Hr 97.9 F-98.4 F 86-121 20-24 127-160/77-96 92-94 GENERAL: A&O, no acute distress HEAD: Normocephalic, atraumatic. EYES: PERRL, no scleral icterus EARS, NOSE, THROAT: oropharynx clear without exudates. Moist mucous membranes. NECK: supple without lymphadenopathy LUNGS: wheezes bilaterally, crackles at the bases, decreased air entry in left base, though improved from yesterday HEART: Regular rate and rhythm, normal S1 and S2 without murmur ABDOMEN: Soft, nontender to palpation, normoactive bowel sounds MUSCULOSKELETAL: some tenderness to palpation on the left posterior neck and shoulder musculature, no palpable masses or abscesses EXTREMITIES: 2+ pulses, warm, well-perfused. No peripheral edema. 5/5 strength on the left, otherwise normal exam. NEUROLOGICAL: Cranial nerves II-XII grossly intact. Normal speech. SKIN: Warm, dry, no rashes or lesions noted Laboratory Results - last 24 hr 09/07/18 08:36 Sodium 136 Potassium 4.1 Chloride 97 L Carbon Dioxide 31 Anion Gap 8 BUN 43 H Creatinine 2.4 H Creat Clearance w eGFR 19.63 Random Glucose 124 H Calcium 9.1 Active Medications Generic Name Dose Route Start Last Admin Trade Name Freq PRN Reason Stop Dose Admin Acetaminophen 650 mg 09/01/18 16:40 Tylenol - PO Q6H PRN PAIN OR FEVER Albuterol Sulfate 1 amp 09/02/18 11:48 Ventolin 0.083% Nebulizer Soln - NEB Q4H PRN SHORT OF BREATH/WHEEZING Albuterol/Ipratropium 1 amp 09/02/18 12:00 09/07/18 11:19 Duoneb - NEB 1 amp RQID [facility] Administration Allopurinol 100 mg 09/02/18 10:00 09/07/18 09:09 Zyloprim - PO 100 mg DAILY [facility] Administration Amlodipine Besylate 10 mg 09/01/18 15:45 09/07/18 09:09 Norvasc - PO 10 mg DAILY [facility] Administration Calcium Carbonate/Cholecalciferol 2 tab 09/02/18 10:00 09/07/18 09:09 Os-Kip 500+D - PO 2 tab DAILY [facility] Administration Docusate Sodium 100 mg 09/01/18 22:00 09/07/18 09:09 Colace - PO 100 mg BID [facility] Administration Heparin Sodium (Porcine) 5,000 unit 08/31/18 06:00 09/07/18 05:15 Heparin - SQ 5,000 unit TID [facility] Administration Sodium Chloride 1,000 mls @ 83 mls/hr 09/06/18 23:15 09/06/18 23:32 1/ Normal Saline IV 83 mls/hr ASDIR [facility] Administration Levothyroxine Sodium 75 mcg 09/02/18 07:00 09/07/18 06:02 Synthroid - PO 75 mcg DAILY@0700 [facility] Administration Melatonin 5 mg 09/04/18 07:45 09/06/18 21:35 Melatonin PO 5 mg HS PRN Administration INSOMNIA Nystatin 500,000 units 08/31/18 06:00 09/07/18 11:34 Nystatin Oral Suspension - PO Not Given Q6HPO [facility] Pantoprazole Sodium 40 mg 09/06/18 17:00 09/07/18 09:09 Protonix - PO 40 mg DAILY [facility] Administration Prednisone 40 mg 09/05/18 12:00 09/07/18 09:09 Deltasone - PO 40 mg DAILY [facility] Administration ASSESSMENT/PLAN: 78 y/o F with HTN, Gout, Asthma, Hypothyroidism, Breast Cancer (+10 years, [facility] tx) was brought from [facility] with Neck pain Left Sided Pleural Effusion with consolidation -CXR noted with significant left sided effusion vs infiltrate -With history of untreated malignancy could be a malignant effusion -Consult pulmonology -IR percutaneous thoracentesis, 350 cc serous fluid drained, f/u CXR improved effusion, no pneumothorax noted -CT noted with effusion and consolidation -Levaquin renally dosed, can d/c today -ID consult appreciated -Awaiting results of fluid analysis -Pre and post done, pt will need home O2 Hx untreated breast CA -Heme/Onc consulted -Bone scan noted without any bony mets Neck Pain -Improved -Likely musculoskeletal in nature -CT without any signs of mass/abscess collection PATY vs CKD -BUN/Cr elevated, most recent records found from outside institution Creatinine 1.6 -Renal US with atrophic right kidney, b/l echogenic kidneys, no signs of hydro -Trend BMP -Nephrology consult appreciated -Continue to ensure adequate hydration -Can d/c when improves HTN -Norvasc 10 mg PO Daily Oral Thrush -Nystatin swish and swallow Asthma -DuoNebs PRN -Continue home Symbicort DVT Prophylaxis -Heparin 5000 units SQ TID FEN -Fluids: none -Electrolytes: No electrolyte abnormalities, BMP in AM -Nutrition: Na Controlled diet Disposition Med/Surg Visit type - Emergency Visit Emergency Visit: Yes ED Registration Date: 08/30/18 Care time: The patient presented to the Emergency Department on the above date and was hospitalized for further evaluation of their emergent condition. - New Patient This patient is new to me today: No - Critical Care Critical Care patient: No
--- NOTE | 2018-09-07 13:37 | PN ---
Teaching Attending Note Name of Resident: Lucio Oneill ATTENDING PHYSICIAN STATEMENT I saw and evaluated the patient. I reviewed the resident's note and discussed the case with the resident. I agree with the resident's findings and plan as documented. SUBJECTIVE: Feeling much better, less SOB. No fever. OBJECTIVE: Afebrile, Hemodynamically Stable. SpO2 93% on 2L via NC Last Vital Signs Temp Pulse Resp BP Pulse Ox 97.9 F 86 20 160/96 93 L 09/07/18 10:00 09/07/18 10:00 09/07/18 10:00 09/07/18 10:00 09/07/18 09:00 HEENT - Afebrile, Hemodynamically Stable Heart - S1, S2 Lungs - Good air entry bilaterally. Few basal crackles, L>R Abdomen - soft, non-tender. Reducible hernias bilateral lower abdomen. Bowel Sounds normal. Extremities - no calf swelling/tenderness. No edema. Laboratory Results - last 24 hr 09/07/18 08:36 Sodium 136 Potassium 4.1 Chloride 97 L Carbon Dioxide 31 Anion Gap 8 BUN 43 H Creatinine 2.4 H Creat Clearance w eGFR 19.63 Random Glucose 124 H Calcium 9.1 Current Medications Generic Name Dose Route Start Last Admin Trade Name Freq PRN Reason Stop Dose Admin Acetaminophen 650 mg 09/01/18 16:40 Tylenol - PO Q6H PRN PAIN OR FEVER Albuterol Sulfate 1 amp 09/02/18 11:48 Ventolin 0.083% Nebulizer Soln - NEB Q4H PRN SHORT OF BREATH/WHEEZING Albuterol/Ipratropium 1 amp 09/02/18 12:00 09/07/18 11:19 Duoneb - NEB 1 amp RQID [facility] Administration Allopurinol 100 mg 09/02/18 10:00 09/07/18 09:09 Zyloprim - PO 100 mg DAILY [facility] Administration Amlodipine Besylate 10 mg 09/01/18 15:45 09/07/18 09:09 Norvasc - PO 10 mg DAILY [facility] Administration Calcium Carbonate/Cholecalciferol 2 tab 09/02/18 10:00 09/07/18 09:09 Os-Kip 500+D - PO 2 tab DAILY [facility] Administration Docusate Sodium 100 mg 09/01/18 22:00 09/07/18 09:09 Colace - PO 100 mg BID [facility] Administration Heparin Sodium (Porcine) 5,000 unit 08/31/18 06:00 09/07/18 05:15 Heparin - SQ 5,000 unit TID [facility] Administration Sodium Chloride 1,000 mls @ 83 mls/hr 09/06/18 23:15 09/06/18 23:32 1/2 Normal Saline IV 83 mls/hr ASDIR [facility] Administration Levothyroxine Sodium 75 mcg 09/02/18 07:00 09/07/18 06:02 Synthroid - PO 75 mcg DAILY@0700 [facility] Administration Melatonin 5 mg 09/04/18 07:45 09/06/18 21:35 Melatonin PO 5 mg HS PRN Administration INSOMNIA Nystatin 500,000 units 08/31/18 06:00 09/07/18 11:34 Nystatin Oral Suspension - PO Not Given Q6HPO [facility] Pantoprazole Sodium 40 mg 09/06/18 17:00 09/07/18 09:09 Protonix - PO 40 mg DAILY [facility] Administration Prednisone 40 mg 09/05/18 12:00 09/07/18 09:09 Deltasone - PO 40 mg DAILY [facility] Administration ASSESSMENT AND PLAN: 78 year old female with HTN, Gout, Asthma, Hypothyroidism, History of Breast Mass (for > 10 years without diagnosis/treatment), smoker, presented with L sided back/neck pain, admitted with L sided pneumonia with L pleural effusion. 1. Acute Respiratory Failure secondary to IRENE Pneumonia with L sided effusion with likely COPD exacerbation SpO2 93% on 2L, previously 84% on RA Afebrile, Hemodynamically stable. Slow weaning of O2. Continue regular Bronchodilator Nebs. Continue on Prednisone 40mg started by Pulm 09/05/18. Completed 7 days Levofloxacin 09/07/18. ID and Pulm following s/p Thoracentesis 09/03/18 - 350cc fluid drained - parapneumonic - Gram stain/ culture neg so far. Cytology - mesothelial cells, negative for malignant cells. 2. History of Breast Mass ( >10 years without diagnosis or treatment) - NM scan shows no bone mets, DJD spine and wrists, severely atrophic R kidney. L Pleural cytology neg for malignancy. 3. PATY on CKD 3 Renal US shows chronic renal disease, no hydronephrosis. Nephrology consult appreciated. Creat 2.4, up from 2.1 on admission (Creat 1.6 at baseline) - continue IV fluids - will defer to Nephrology regarding further work-up/intervention. 4. Chronic Neck Pain - likely musculoskeletal. CT Neck with Contrast: No Abscess, Centrilobular emphysema Continue Flexeril prn. 5. HTN - controlled. Continue Norvasc 6. Oral Thrush - on Nystatin Swish and Swallow - 7 day course completed 09/07/18 7. Gout - stable. Continue Allopurinol. 8. Hypothyroidism - continue Levothyroxine. DVT Px - Heparin SQ PPI - Protonix.
--- NOTE | 2018-09-07 13:50 | PN ---
Physical Exam: SUBJECTIVE: Patient seen and examined at bedside. Pt was placed on IV fluids because of worsening renal function. No complaints at this time. OBJECTIVE: Vital Signs Period Temp Pulse Resp BP Sys/Trevino Pulse Ox Last 24 Hr 97.9 F-98.4 F 86-121 18-24 127-160/77-96 92-94 Gen: NAD HEENT: NCAT, EOMI Neck: mild ttp left neck Cardio: rrr, normal s1s2, no murmurs/rubs/gallops appreciated Pulm: decreased breath sounds, wheezing diffusely Abd: nondistended, normal bs, soft nontender Ext: 2+ pulses no edema Laboratory Results - last 24 hr 09/07/18 08:36 Sodium 136 Potassium 4.1 Chloride 97 L Carbon Dioxide 31 Anion Gap 8 BUN 43 H Creatinine 2.4 H Creat Clearance w eGFR 19.63 Random Glucose 124 H Calcium 9.1 Active Medications Generic Name Dose Route Start Last Admin Trade Name Freq PRN Reason Stop Dose Admin Acetaminophen 650 mg 09/01/18 16:40 Tylenol - PO Q6H PRN PAIN OR FEVER Albuterol Sulfate 1 amp 09/02/18 11:48 Ventolin 0.083% Nebulizer Soln - NEB Q4H PRN SHORT OF BREATH/WHEEZING Albuterol/Ipratropium 1 amp 09/02/18 12:00 09/07/18 11:19 Duoneb - NEB 1 amp RQID KASSIDY Administration Allopurinol 100 mg 09/02/18 10:00 09/07/18 09:09 Zyloprim - PO 100 mg DAILY KASSIDY Administration Amlodipine Besylate 10 mg 09/01/18 15:45 09/07/18 09:09 Norvasc - PO 10 mg DAILY KASSIDY Administration Calcium Carbonate/Cholecalciferol 2 tab 09/02/18 10:00 09/07/18 09:09 Os-Kip 500+D - PO 2 tab DAILY K[facility]IDY Administration Docusate Sodium 100 mg 09/01/18 22:00 09/07/18 09:09 Colace - PO 100 mg BID KASSIDY Administration Heparin Sodium (Porcine) 5,000 unit 08/31/18 06:00 09/07/18 05:15 Heparin - SQ 5,000 unit TID KASSIDY Administration Sodium Chloride 1,000 mls @ 83 mls/hr 09/06/18 23:15 09/06/18 23:32 1/2 Normal Saline IV 83 mls/hr ASDIR KASSIDY Administration Levothyroxine Sodium 75 mcg 09/02/18 07:00 09/07/18 06:02 Synthroid - PO 75 mcg DAILY@0700 K[facility] Administration Melatonin 5 mg 09/04/18 07:45 09/06/18 21:35 Melatonin PO 5 mg HS PRN Administration INSOMNIA Pantoprazole Sodium 40 mg 09/06/18 17:00 09/07/18 09:09 Protonix - PO 40 mg DAILY KASSIDY Administration Prednisone 40 mg 09/05/18 12:00 09/07/18 09:09 Deltasone - PO 40 mg DAILY KASSIDY Administration ASSESSMENT/PLAN: Pt is a 78 y/o F with multiple medical problems who presented to ED from [place] for neck pain. Creatinine was found to be elevated without baseline for comparison. Nephrology was called to evaluate for PATY. 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 duration (no baseline - per chart Heavy Equipment Operator was 1.6 ~3 years ago) Chart reveals hist CKD. PCP was unreachable. -Pt does not appear dehydrated. No change in director oracle after ensuring adequate hydration. UA pos for protein. No blood. No sterile pyuria. No casts. No obstruction on US. 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 Not on ASA Dispo: We will continue to follow the patient. Thank you for this consultative opportunity. Ariel Marti MD PGY2 IM - Nephrology Visit type - Emergency Visit Emergency Visit: No - New Patient This patient is new to me today: No - Critical Care Critical Care patient: No
--- NOTE | 2018-09-07 14:06 | PN ---
Teaching Attending Note Name of Resident: Ariel Marti (Nephrology) ATTENDING PHYSICIAN STATEMENT I saw and evaluated the patient. I reviewed the resident's note and discussed the case with the resident. I agree with the resident's findings and plan as documented. Renal Pt seen and examined at bedside. She denies shortness of breath. Current Medications Generic Name Dose Route Start Last Admin Trade Name Freq PRN Reason Stop Dose Admin Acetaminophen 650 mg 09/01/18 16:40 Tylenol - PO Q6H PRN PAIN OR FEVER Albuterol Sulfate 1 amp 09/02/18 11:48 Ventolin 0.083% Nebulizer Soln - NEB Q4H PRN SHORT OF BREATH/WHEEZING Albuterol/Ipratropium 1 amp 09/02/18 12:00 09/07/18 11:19 Duoneb - NEB 1 amp RQID KASSIDY Administration Allopurinol 100 mg 09/02/18 10:00 09/07/18 09:09 Zyloprim - PO 100 mg DAILY KASSIDY Administration Amlodipine Besylate 10 mg 09/01/18 15:45 09/07/18 09:09 Norvasc - PO 10 mg DAILY KASSIDY Administration Calcium Carbonate/Cholecalciferol 2 tab 09/02/18 10:00 09/07/18 09:09 Os-Kip 500+D - PO 2 tab DAILY K[facility]Y Administration Docusate Sodium 100 mg 09/01/18 22:00 09/07/18 09:09 Colace - PO 100 mg BID KASSIDY Administration Heparin Sodium (Porcine) 5,000 unit 08/31/18 06:00 09/07/18 05:15 Heparin - SQ 5,000 unit TID KASSIDY Administration Sodium Chloride 1,000 mls @ 83 mls/hr 09/06/18 23:15 09/06/18 23:32 1/2 Normal Saline IV 83 mls/hr ASDIR KASSIDY Administration Levothyroxine Sodium 75 mcg 09/02/18 07:00 09/07/18 06:02 Synthroid - PO 75 mcg DAILY@0700 K[facility] Administration Melatonin 5 mg 09/04/18 07:45 09/06/18 21:35 Melatonin PO 5 mg HS PRN Administration INSOMNIA Pantoprazole Sodium 40 mg 09/06/18 17:00 09/07/18 09:09 Protonix - PO 40 mg DAILY K[facility]Y Administration Prednisone 40 mg 09/05/18 12:09/07/18 09:09 Deltasone - PO 40 mg DAILY KASSIDY Administration cardio s1s2 pulm on o2 gi soft ext neg edema skin neg rash Impression 1. CKD 2. hypothyroidism 3. breast cancer 4. pleural effusion 5. gout 6. asthma 7. liver disease 8. 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
[2018-09-07] MEDS: SODIUM CHLORIDE 0.45% 1,000 ML IV SCH (14:25)
--- NOTE | 2018-09-07 23:19 | PN ---
Progress Note (short form) - Note Progress Note: Patient seen and examined Clare specivfic c./o Last Vital Signs Temp Pulse Resp BP Pulse Ox 98.2 F 93 H 18 140/71 93 L 09/07/18 22:00 09/07/18 22:00 09/07/18 22:00 09/07/18 22:00 09/07/18 21:00 Cor: RSR, No murmurs, No gallops Lungs: decreased at bases Abd: Soft, Normal bowel sounds, No organomegaly Ext:No significant edema A/P 78 y/o patient s/p thoracentesis HTN asthma gout Breast mass LLL consolidation PATY pneumonia pleurl fluid cytology negative PET-Ct outpatient Biopsy pf breast mass out patient discussed the importance of follow up and need to consider bx/treatment with close f/u outpatient in grea detail with patient. Risks of not following up discussd aswell
[2018-09-08] MEDS: MELATONIN 5 MG TABLETS PO PRN (02:34)
[2018-09-08] MEDS: LEVOTHYROXINE NA 75 MCG TABLET (FP) PO SCH (06:11)
[2018-09-08] MEDS: HEPARIN NA (PORCINE) 5,000 UNITS/ML 1ML VIAL SQ SCH ×3 (06:12→21:31)
[2018-09-08] MEDS: ALBUTEROL SO4 2.5/IPRATROPIUM 0.5 INH SOL 3 ML VIAL.NEB. NEB SCH ×4 (07:25→20:00)
[2018-09-08 07:38] LABS: ANION GAP 7 MMOL/L (8-16); BLOOD UREA NITROGEN 44 mg/dL (7-18); CALCIUM 8.7 mg/dL (8.5-10.1); CHLORIDE 100 mmol/L (98-107); CO2 31 mmol/L (21-32); CREATININE 2.3 mg/dL (0.55-1.3); GLUCOSE,RANDOM 74 mg/dL (74-106); POTASSIUM 4.3 mmol/L (3.5-5.1); SODIUM 138 mmol/L (136-145)
[2018-09-08] MEDS: CALCIUM 500MG/VIT-D 200 UNITS COMBO TABLET (FP) PO SCH (08:59)
[2018-09-08] MEDS: amLODIPine BESYLATE 10 MG TABLET (FP) PO SCH (08:59)
[2018-09-08] MEDS: DOCUSATE SODIUM 100 MG CAPSULE (FP) PO SCH ×2 (08:59→21:33)
[2018-09-08] MEDS: ALLOPURINOL 100 MG TABLET (FP) PO SCH (08:59)
[2018-09-08] MEDS: PANTOPRAZOLE 40 MG TABLET (FP) PO SCH (08:59)
[2018-09-08] MEDS: SODIUM CHLORIDE 0.45% 1,000 ML IV SCH ×2 (08:59→21:31)
[2018-09-08] MEDS: predniSONE 20 MG TABLET (UD) PO SCH (09:00)
--- NOTE | 2018-09-08 11:29 | PN ---
Progress Note (short form) - Note Progress Note: Breathing continues to slowly improve. No acute events overnight. Intake & Output 09/05/18 09/06/18 09/07/18 09/08/18 23:59 23:59 23:59 23:59 Intake Total 400 1100 2362 200 Balance 400 1100 2362 200 Last Vital Signs Temp Pulse Resp BP Pulse Ox 98.3 F 95 H 20 126/77 93 L 09/08/18 08:23 09/08/18 08:23 09/08/18 09:00 09/08/18 08:23 09/08/18 09:00 Active Medications Acetaminophen (Tylenol -) 650 mg PO Q6H PRN PRN Reason: PAIN OR FEVER Albuterol Sulfate (Ventolin 0.083% Nebulizer Soln -) 1 amp NEB Q4H PRN PRN Reason: SHORT OF BREATH/WHEEZING Albuterol/Ipratropium (Duoneb -) 1 amp NEB RQID [facility] Last Admin: 09/08/18 07:25 Dose: 1 amp Allopurinol (Zyloprim -) 100 mg PO DAILY [facility] Last Admin: 09/08/18 08:59 Dose: 100 mg Amlodipine Besylate (Norvasc -) 10 mg PO DAILY [facility] Last Admin: 09/08/18 08:59 Dose: 10 mg Calcium Carbonate/Cholecalciferol (Os-Kip 500+D -) 2 tab PO DAILY [facility] Last Admin: 09/08/18 08:59 Dose: 2 tab Docusate Sodium (Colace -) 100 mg PO BID [facility] Last Admin: 09/08/18 08:59 Dose: 100 mg Heparin Sodium (Porcine) (Heparin -) 5,000 unit SQ TID [facility] Last Admin: 09/08/18 06:12 Dose: Not Given Sodium Chloride (1/2 Normal Saline) 1,000 mls @ 75 mls/hr IV ASDIR [facility] Last Admin: 09/08/18 08:59 Dose: 75 mls/hr Levothyroxine Sodium (Synthroid -) 75 mcg PO DAILY@0700 [facility] Last Admin: 09/08/18 06:11 Dose: 75 mcg Melatonin (Melatonin) 5 mg PO HS PRN PRN Reason: INSOMNIA Last Admin: 09/08/18 02:34 Dose: 5 mg Pantoprazole Sodium (Protonix -) 40 mg PO DAILY [facility] Last Admin: 09/08/18 08:59 Dose: 40 mg Prednisone (Deltasone -) 40 mg PO DAILY [facility] Last Admin: 09/08/18 09:00 Dose: 40 mg Gen: NAD on NC O2 Heart: RRR Lung: less rhonchi, No wheezes Abd: soft, nontender Ext: no edema Laboratory Results - last 24 hr 09/08/18 06:30 Sodium 138 Potassium 4.3 Chloride 100 Carbon Dioxide 31 Anion Gap 7 L BUN 44 H Creatinine 2.3 H Creat Clearance w eGFR 20.62 Random Glucose 74 Calcium 8.7 A/P Lingular consolidation - r/o Pneumonia Left Pleural Effusion h/o Breast Ca Acute Kidney Injury Acute Asthma Exacerbation Hypothyroidism - Prednisone 40mg on discharge (no taper) - Will need home O2: being arranged - Would discharge on LAMA/LABA/ICS combination inhaler with ZAIN Q4 PRN Dr Ferrer
--- NOTE | 2018-09-08 15:36 | PN ---
Progress Note, Physician History of Present Illness: Pt seen and examined at bedside. She is awake and alert. She denies shortness of breath. - Current Medication List Current Medications: Active Medications Acetaminophen (Tylenol -) 650 mg PO Q6H PRN PRN Reason: PAIN OR FEVER Albuterol Sulfate (Ventolin 0.083% Nebulizer Soln -) 1 amp NEB Q4H PRN PRN Reason: SHORT OF BREATH/WHEEZING Albuterol/Ipratropium (Duoneb -) 1 amp NEB RQID [facility] Last Admin: 09/08/18 11:50 Dose: Not Given Allopurinol (Zyloprim -) 100 mg PO DAILY [facility] Last Admin: 09/08/18 08:59 Dose: 100 mg Amlodipine Besylate (Norvasc -) 10 mg PO DAILY [facility] Last Admin: 09/08/18 08:59 Dose: 10 mg Calcium Carbonate/Cholecalciferol (Os-Kip 500+D -) 2 tab PO DAILY [facility] Last Admin: 09/08/18 08:59 Dose: 2 tab Docusate Sodium (Colace -) 100 mg PO BID [facility] Last Admin: 09/08/18 08:59 Dose: 100 mg Heparin Sodium (Porcine) (Heparin -) 5,000 unit SQ TID [facility] Last Admin: 09/08/18 13:18 Dose: 5,000 unit Sodium Chloride (1/2 Normal Saline) 1,000 mls @ 75 mls/hr IV ASDIR [facility] Last Admin: 09/08/18 08:59 Dose: 75 mls/hr Levothyroxine Sodium (Synthroid -) 75 mcg PO DAILY@0700 [facility] Last Admin: 09/08/18 06:11 Dose: 75 mcg Melatonin (Melatonin) 5 mg PO HS PRN PRN Reason: INSOMNIA Last Admin: 09/08/18 02:34 Dose: 5 mg Pantoprazole Sodium (Protonix -) 40 mg PO DAILY [facility] Last Admin: 09/08/18 08:59 Dose: 40 mg Prednisone (Deltasone -) 40 mg PO DAILY [facility] Last Admin: 09/08/18 09:00 Dose: 40 mg - Objective Vital Signs: Vital Signs Temperature 98.3 F 09/08/18 13:58 Pulse Rate 93 H 09/08/18 13:58 Respiratory Rate 20 09/08/18 13:58 Blood Pressure 125/71 09/08/18 13:58 O2 Sat by Pulse Oximetry (%) 93 L 09/08/18 09:00 Constitutional: Yes: Calm Eyes: Yes: Conjunctiva Clear HENT: Yes: Atraumatic Cardiovascular: Yes: S1, S2 Respiratory: Yes: On Nasal O2 Gastrointestinal: Yes: Soft Musculoskeletal: Yes: WNL Extremities: Yes: WNL Edema: No Neurological: Yes: Oriented Psychiatric: Yes: Oriented Labs: CBC, BMP 09/06/18 05:25 09/08/18 06:30 INR, PTT INR 0.90 (0.83-1.09) 09/01/18 06:15 Assessment/Plan Current Medications Generic Name Dose Route Start Last Admin Trade Name Freq PRN Reason Stop Dose Admin Acetaminophen 650 mg 09/01/18 16:40 Tylenol - PO Q6H PRN PAIN OR FEVER Albuterol Sulfate 1 amp 09/02/18 11:48 Ventolin 0.083% Nebulizer Soln - NEB Q4H PRN SHORT OF BREATH/WHEEZING Albuterol/Ipratropium 1 amp 09/02/18 12:00 09/08/18 11:50 Duoneb - NEB Not Given RQID KASSIDY Allopurinol 100 mg 09/02/18 10:00 09/08/18 08:59 Zyloprim - PO 100 mg DAILY K[facility]Y Administration Amlodipine Besylate 10 mg 09/01/18 15:45 09/08/18 08:59 Norvasc - PO 10 mg DAILY K[facility]IDY Administration Calcium Carbonate/Cholecalciferol 2 tab 09/02/18 10:00 09/08/18 08:59 Os-Kip 500+D - PO 2 tab DAILY [facility] Administration Docusate Sodium 100 mg 09/01/18 22:00 09/08/18 08:59 Colace - PO 100 mg BID K[facility]IDY Administration Heparin Sodium (Porcine) 5,000 unit 08/31/18 06:00 09/08/18 13:18 Heparin - SQ 5,000 unit TID K[facility]IDY Administration Sodium Chloride 1,000 mls @ 75 mls/hr 09/07/18 14:04 09/08/18 08:59 1/2 Normal Saline IV 75 mls/hr ASDIR K[facility]IDY Administration Levothyroxine Sodium 75 mcg 09/02/18 07:00 09/08/18 06:11 Synthroid - PO 75 mcg DAILY@0700 [facility] Administration Melatonin 5 mg 09/04/18 07:45 09/08/18 02:34 Melatonin PO 5 mg HS PRN Administration INSOMNIA Pantoprazole Sodium 40 mg 09/06/18 17:00 09/08/18 08:59 Protonix - PO 40 mg DAILY [facility] Administration Prednisone 40 mg 09/05/18 12:00 09/08/18 09:00 Deltasone - PO 40 mg DAILY K[facility]IDY Administration Impression 1. CKD 2. hypothyroidism 3. breast cancer 4. pleural effusion 5. gout 6. asthma 7. liver disease Plan - renal function stabilizing - will need outpt follow up and renal workup - can see in office - no malignant cells on cytology per chart - atrophic kidney on ultrasound - avoid nsaids - will follow
--- NOTE | 2018-09-08 16:15 | DS ---
Physical Exam: SUBJECTIVE: Patient seen and examined this AM. She states she is doing well and is excited to return back to her assisted living facility. OBJECTIVE: Vital Signs Period Temp Pulse Resp BP Sys/Trevino Pulse Ox Last 24 Hr 98.2 F-98.5 F 92-95 18-20 125-143/62-90 93-93 PHYSICAL EXAM GENERAL: A&O, no acute distress HEAD: Normocephalic, atraumatic. EYES: no scleral icterus EARS, NOSE, THROAT: oropharynx clear without exudates. Moist mucous membranes. NECK: supple without lymphadenopathy LUNGS: wheezes bilaterally, crackles at the bases, decreased air entry in left base, though improved from yesterday HEART: Regular rate and rhythm, normal S1 and S2 without murmur ABDOMEN: Soft, nontender to palpation, normoactive bowel sounds EXTREMITIES: 2+ pulses, warm, well-perfused. No peripheral edema. 5/5 strength on the left, otherwise normal exam. NEUROLOGICAL: Cranial nerves II-XII grossly intact. Normal speech. SKIN: Warm, dry, no rashes or lesions noted LABS Laboratory Results - last 24 hr 09/08/18 06:30 Sodium 138 Potassium 4.3 Chloride 100 Carbon Dioxide 31 Anion Gap 7 L BUN 44 H Creatinine 2.3 H Creat Clearance w eGFR 20.62 Random Glucose 74 Calcium 8.7 HOSPITAL COURSE: Date of Admission:08/30/18 Date of Discharge: 09/08/18 HPI on Admission: 78 y/o F with HTN, Gout, Asthma, Breast Cancer (+10 years, [place] tx), [place] ( 25 years ago) was BIBEMS from [facility] with Neck pain. Patient recently had a cough productive of green sputum for which she completed a 6 day course of ABx (unknown which). Shortly after, she started to feel worse with increasing sputum production. About 4 days ago, patient started to have some neck pain that suddenly became intense today. This is the first time she experienced this pain. She describes it as constant, sharp 7/10, does not radiate, worsens with coughing or arm movement, localized to her right side primarily. She tried Rest with minimal relief; did not try any NSAIDs. Previously the pain was tolerable, but today it became severe prompting the patient to visit the ED. Patient says her ROM has increased since arrival in the ED. Denies any recent trauma to the area, no changes in sleeping positions. Denies any associated fevers, chills, chest pain, SOB, nausea, vomiting diarrhea , constipation. Hospital Course: CT chest was performed which revealed a left sided effusion and infiltrate. She was seen by pulmonology who recommended IR guided thoracentesis for which fluid analysis was unremarkable. She was seen by oncology with the history of the breast mass who recommended bone scan which was unremarkable and outpatient follow up. She was also noted to have an PATY on CKD as old records were retrieved which revealed baseline creatinine of 1.6 in 2015. Her PATY was improving with fluids and she was encouraged to drink plenty of fluids as well. She was treated with Levaquin for 7 days. Pulmonology recommended discharge with LAMA/LABA/IC combination in addition to ZAIN for rescue. Pre and post was done which revealed that patient still requires home O2, thus is was continued on discharge. She was deemed medically safe for discharge and instructed to follow up with Oncology, Pulmonology, and Nephrology as well as her primary care physician. Minutes to complete discharge: 35 Discharge Summary Reason For Visit: PLEURAL EFFUSION, NECK PAIN Current Active Problems Allergy to multiple antibiotics (Acute) Anemia (Acute) Asthma (Acute) Asthma (Acute) Breast mass, right (Acute) CKD (chronic kidney disease) (Acute) Gout (Acute) H/O malignant neoplasm of breast (Acute) Neck pain (Acute) Pleural effusion (Acute) Pneumonia (Acute) Throat pain in adult (Acute) Condition: Stable - Instructions Diet, Activity, Other Instructions: You were admitted to the hospital with a pneumonia and some fluid on one of your lungs. You were given antibiotics for the pneumonia and the fluid was drained by interventional radiology during a procedure called a thoracentesis. The fluid was sent for analysis which did not reveal any concerning results. With the history of your breast mass you were seen by an oncologist who recommended a bone scan which was negative. However, they recommended that you continue to follow up as an outpatient for further diagnostic workup. You had some elevation of your kidney numbers from baseline but you were given fluids and they improved. It is important that you continue to drink plenty of water in order to stay hydrated and keep your kidney numbers okay. You are being discharged with oxygen at home which has been set up for you. You should continue all of your home medications as they were prescribed prior to your hospitalization. In addition, you are being started on Spiriva Inhaler. You should inhale 2 puffs once daily. You are also being given an Albuterol inhaler which you can use 2 puffs every 4 hours as needed for difficulty breathing. You should follow up with your primary care physician within 1 week of discharge from the hospital You should follow up with pulmonology within 2 weeks of discharge from the hospital You should follow up with oncology within 2 weeks of discharge from the hospital You should follow up with a kidney doctor within 2 weeks of discharge from the hospital If you have worsening shortness of breath, high fevers, or any other concerning symptoms, you should be evaluated by your doctor or return to the emergency department. Referrals: Whit Berg MD [Staff Physician] - 2 Weeks ON STAFF,NOT [Primary Care Provider] - David Ferrer MD [Staff Physician] - 2 Weeks Federico Whalen MD [Staff Physician] - 2 Weeks Disposition: HOME - Home Medications Comprehensive Discharge Medication List: Ambulatory Orders Allopurinol [Zyloprim -] 100 mg PO DAILY 08/30/18 Amlodipine Besylate [Norvasc -] 10 mg PO DAILY 08/30/18 Budesonide/Formeterol Fumarate [SYMBICORT 160/4.5mcg -] 2 inh PO BID 08/30/18 Calcium Carbonate/Vitamin D3 [Calcium 600+D Softgel] 2 each PO DAILY 08/30/18 Docusate Sodium [Colace] 100 mg PO BID 08/30/18 Levothyroxine [Synthroid -] 75 mcg PO DAILY 08/30/18 Albuterol Sulfate Inhaler - [Ventolin HFA Inhaler -] 1 - 2 inh PO Q4H #1 inhaler 09/08/18 Tiotropium [place] [Spiriva Respimat] 4 gm IH DAILY #1 mist.inhal 09/08/18 This patient is new to me today: No Emergency Visit: Yes ED Registration Date: 08/30/18 Care time: The patient presented to the Emergency Department on the above date and was hospitalized for further evaluation of their emergent condition. Critical Care patient: No - Discharge Referral Referred to [facility] No
--- NOTE | 2018-09-08 16:19 | PN ---
Teaching Attending Note Name of Resident: Lucio Oneill ATTENDING PHYSICIAN STATEMENT I saw and evaluated the patient. I reviewed the resident's note and discussed the case with the resident. I agree with the resident's findings and plan as documented. SUBJECTIVE: OBJECTIVE: Vital Signs Period Temp Pulse Resp BP Sys/Trevino Pulse Ox Last 24 Hr 98.2 F-98.5 F 92-95 18-20 125-143/62-90 93-93 Laboratory Results - last 24 hr 09/08/18 06:30 Sodium 138 Potassium 4.3 Chloride 100 Carbon Dioxide 31 Anion Gap 7 L BUN 44 H Creatinine 2.3 H Creat Clearance w eGFR 20.62 Random Glucose 74 Calcium 8.7 Current Medications Generic Name Dose Route Start Last Admin Trade Name Freq PRN Reason Stop Dose Admin Acetaminophen 650 mg 09/01/18 16:40 Tylenol - PO Q6H PRN PAIN OR FEVER Albuterol Sulfate 1 amp 09/02/18 11:48 Ventolin 0.083% Nebulizer Soln - NEB Q4H PRN SHORT OF BREATH/WHEEZING Albuterol/Ipratropium 1 amp 09/02/18 12:00 09/08/18 11:50 Duoneb - NEB Not Given RQID [facility] Allopurinol 100 mg 09/02/18 10:00 09/08/18 08:59 Zyloprim - PO 100 mg DAILY [facility] Administration Amlodipine Besylate 10 mg 09/01/18 15:45 09/08/18 08:59 Norvasc - PO 10 mg DAILY [facility] Administration Calcium Carbonate/Cholecalciferol 2 tab 09/02/18 10:00 09/08/18 08:59 Os-Kip 500+D - PO 2 tab DAILY [facility] Administration Docusate Sodium 100 mg 09/01/18 22:00 09/08/18 08:59 Colace - PO 100 mg BID [facility] Administration Heparin Sodium (Porcine) 5,000 unit 08/31/18 06:00 09/08/18 13:18 Heparin - SQ 5,000 unit TID [facility] Administration Sodium Chloride 1,000 mls @ 75 mls/hr 09/07/18 14:04 09/08/18 08:59 1/2 Normal Saline IV 75 mls/hr ASDIR [facility] Administration Levothyroxine Sodium 75 mcg 09/02/18 07:00 09/08/18 06:11 Synthroid - PO 75 mcg DAILY@0700 [facility] Administration Melatonin 5 mg 09/04/18 07:45 09/08/18 02:34 Melatonin PO 5 mg HS PRN Administration INSOMNIA Pantoprazole Sodium 40 mg 09/06/18 17:00 09/08/18 08:59 Protonix - PO 40 mg DAILY [facility] Administration Prednisone 40 mg 09/05/18 12:00 09/08/18 09:00 Deltasone - PO 40 mg DAILY [facility] Administration ASSESSMENT AND PLAN: This is a 78 year old woman with a history of HTN, gout, asthma, hypothyroidism , breast mass who presented to the ED with left back and neck pain. 1. Acute hypoxic respiratory failure secondary to pneumonia with left pleural effusion, acute asthma exacerbation SpO2 93% on 2L, previously 84% on RA Afebrile, Hemodynamically stable. Slow weaning of O2. Continue regular Bronchodilator Nebs. Continue on Prednisone 40mg started by Pulm 09/05/18. Completed 7 days Levofloxacin 09/07/18. ID and Pulm following s/p Thoracentesis 09/03/18 - 350cc fluid drained - parapneumonic - Gram stain/ culture neg so far. Cytology - mesothelial cells, negative for malignant cells. 2. Breast mass - NM scan shows no bone mets, DJD spine and wrists, severely atrophic R kidney. L Pleural cytology neg for malignancy. 3. Acute kidney injury on stage 3 CKD Renal US shows chronic renal disease, no hydronephrosis. Nephrology consult appreciated. Creat 2.4, up from 2.1 on admission (Creat 1.6 at baseline) - continue IV fluids - will defer to Nephrology regarding further work-up/intervention. 4. Chronic neck pain - likely musculoskeletal. CT Neck with Contrast: No Abscess, Centrilobular emphysema Continue Flexeril prn. 5. HTN - controlled. Continue Norvasc 6. Oral candidiasis - on Nystatin Swish and Swallow - 7 day course completed 09/07/18 7. History of gout - Continue Allopurinol 8. Hypothyroidism - continue Levothyroxine.
[2018-09-09 05:50] VITALS: TEMP 98.2
[2018-09-09] MEDS: LEVOTHYROXINE NA 75 MCG TABLET (FP) PO SCH (06:15)
[2018-09-09] MEDS: HEPARIN NA (PORCINE) 5,000 UNITS/ML 1ML VIAL SQ SCH (06:17)
[2018-09-09] MEDS: DOCUSATE SODIUM 100 MG CAPSULE (FP) PO SCH (09:50)
[2018-09-09] MEDS: PANTOPRAZOLE 40 MG TABLET (FP) PO SCH (09:51)
[2018-09-09] MEDS: amLODIPine BESYLATE 10 MG TABLET (FP) PO SCH (09:51)
[2018-09-09] MEDS: ALLOPURINOL 100 MG TABLET (FP) PO SCH (09:51)
[2018-09-09] MEDS: CALCIUM 500MG/VIT-D 200 UNITS COMBO TABLET (FP) PO SCH (09:51)
[2018-09-09] MEDS: predniSONE 20 MG TABLET (UD) PO SCH (09:51)
[2018-09-09] MEDS: ALBUTEROL SO4 2.5/IPRATROPIUM 0.5 INH SOL 3 ML VIAL.NEB. NEB SCH (10:55)
[2018-09-09 11:25] VITALS: BP 147/72; PULSE 75
--- NOTE | 2018-09-09 12:21 | PN ---
Progress Note, Physician History of Present Illness: Pt seen and examined at bedside. She is awake and alert. She is eager to go home. She denies shortness of breath. - Current Medication List Current Medications: Active Medications Acetaminophen (Tylenol -) 650 mg PO Q6H PRN PRN Reason: PAIN OR FEVER Albuterol Sulfate (Ventolin 0.083% Nebulizer Soln -) 1 amp NEB Q4H PRN PRN Reason: SHORT OF BREATH/WHEEZING Albuterol/Ipratropium (Duoneb -) 1 amp NEB RQID [facility] Last Admin: 09/09/18 10:55 Dose: 1 amp Allopurinol (Zyloprim -) 100 mg PO DAILY [facility] Last Admin: 09/09/18 09:51 Dose: 100 mg Amlodipine Besylate (Norvasc -) 10 mg PO DAILY [facility] Last Admin: 09/09/18 09:51 Dose: 10 mg Calcium Carbonate/Cholecalciferol (Os-Kip 500+D -) 2 tab PO DAILY [facility] Last Admin: 09/09/18 09:51 Dose: 2 tab Docusate Sodium (Colace -) 100 mg PO BID [facility] Last Admin: 09/09/18 09:50 Dose: 100 mg Heparin Sodium (Porcine) (Heparin -) 5,000 unit SQ TID [facility] Last Admin: 09/09/18 06:17 Dose: Not Given Sodium Chloride (1/2 Normal Saline) 1,000 mls @ 75 mls/hr IV ASDIR [facility] Last Admin: 09/08/18 21:31 Dose: 75 mls/hr Levothyroxine Sodium (Synthroid -) 75 mcg PO DAILY@0700 [facility] Last Admin: 09/09/18 06:15 Dose: 75 mcg Melatonin (Melatonin) 5 mg PO HS PRN PRN Reason: INSOMNIA Last Admin: 09/08/18 02:34 Dose: 5 mg Pantoprazole Sodium (Protonix -) 40 mg PO DAILY [facility] Last Admin: 09/09/18 09:51 Dose: 40 mg Prednisone (Deltasone -) 40 mg PO DAILY [facility] Last Admin: 09/09/18 09:51 Dose: 40 mg - Objective Vital Signs: Vital Signs Temperature 98.2 F 09/09/18 10:00 Pulse Rate 75 09/09/18 10:00 Respiratory Rate 20 09/09/18 10:00 Blood Pressure 147/72 09/09/18 10:00 O2 Sat by Pulse Oximetry (%) 95 09/09/18 09:00 Constitutional: Yes: Calm Eyes: Yes: Conjunctiva Clear Cardiovascular: Yes: S1, S2 Respiratory: Yes: CTA Bilaterally Gastrointestinal: Yes: Soft Genitourinary: Yes: WNL Musculoskeletal: Yes: WNL Extremities: Yes: WNL Edema: No Neurological: Yes: Oriented Labs: CBC, BMP 09/06/18 05:25 09/08/18 06:30 INR, PTT INR 0.90 (0.83-1.09) 09/01/18 06:15 Assessment/Plan Current Medications Generic Name Dose Route Start Last Admin Trade Name Freq PRN Reason Stop Dose Admin Acetaminophen 650 mg 09/01/18 16:40 Tylenol - PO Q6H PRN PAIN OR FEVER Albuterol Sulfate 1 amp 09/02/18 11:48 Ventolin 0.083% Nebulizer Soln - NEB Q4H PRN SHORT OF BREATH/WHEEZING Albuterol/Ipratropium 1 amp 09/02/18 12:00 09/09/18 10:55 Duoneb - NEB 1 amp RQID KASSIDY Administration Allopurinol 100 mg 09/02/18 10:00 09/09/18 09:51 Zyloprim - PO 100 mg DAILY KASSIDY Administration Amlodipine Besylate 10 mg 09/01/18 15:45 09/09/18 09:51 Norvasc - PO 10 mg DAILY KASSIDY Administration Calcium Carbonate/Cholecalciferol 2 tab 09/02/18 10:00 09/09/18 09:51 Os-Kip 500+D - PO 2 tab DAILY K[facility]IDY Administration Docusate Sodium 100 mg 09/01/18 22:00 09/09/18 09:50 Colace - PO 100 mg BID KASSIDY Administration Heparin Sodium (Porcine) 5,000 unit 08/31/18 06:00 09/09/18 06:17 Heparin - SQ Not Given TID KASSIDY Sodium Chloride 1,000 mls @ 75 mls/hr 09/07/18 14:04 09/08/18 21:31 1/2 Normal Saline IV 75 mls/hr ASDIR KASSIDY Administration Levothyroxine Sodium 75 mcg 09/02/18 07:00 09/09/18 06:15 Synthroid - PO 75 mcg DAILY@0700 KASSIDY Administration Melatonin 5 mg 09/04/18 07:45 09/08/18 02:34 Melatonin PO 5 mg HS PRN Administration INSOMNIA Pantoprazole Sodium 40 mg 09/06/18 17:00 09/09/18 09:51 Protonix - PO 40 mg DAILY KASSIDY Administration Prednisone 40 mg 09/05/18 12:00 09/09/18 09:51 Deltasone - PO 40 mg DAILY KASSIDY Administration Impression 1. CKD 2. hypothyroidism 3. breast cancer 4. pleural effusion 5. gout 6. asthma 7. liver disease Plan - will see pt in office for renal workup - she has info and will make and appointment - renal function is improving - avoid nsaids - atrophic kidney on ultrasound - avoid nsaids - will follow
== END 2018-09-09 12:22 | disposition home or self-care (01) | DRG 186 ==
LOC: JER 16:07 → JERBED 22:01 → UNDOADMIN 22:45 → JERBED 22:45 → J7W 08-31 05:02
PROVIDERS: ADMIT Internal Medicine; ATTEND Internal Medicine
PROC: 0W9B3ZX Drainage of Left Pleural Cavity, Percutaneous Approach, Diagnostic (ICD-10-PCS; principal; 2018-09-03)
DX: J90 Pleural effusion, not elsewhere classified (principal); J18.9 Pneumonia, unspecified organism; J96.01 Acute respiratory failure with hypoxia; N17.9 Acute kidney failure, unspecified; J44.1 Chronic obstructive pulmonary disease with (acute) exacerbation; B37.0 Candidal stomatitis; J45.901 Unspecified asthma with (acute) exacerbation; I12.9 Hypertensive chronic kidney disease with stage 1 through stage 4 chronic kidney disease, or unspecified chronic kidney disease; E03.9 Hypothyroidism, unspecified; M10.9 Gout, unspecified; J45.909 Unspecified asthma, uncomplicated; N26.1 Atrophy of kidney (terminal); M25.519 Pain in unspecified shoulder; D64.9 Anemia, unspecified; K76.89 Other specified diseases of liver; M54.2 Cervicalgia; N18.3 Chronic kidney disease, stage 3 (moderate); M47.9 Spondylosis, unspecified; M19.049 Primary osteoarthritis, unspecified hand; C50.919 Malignant neoplasm of unspecified site of unspecified female breast; I25.2 Old myocardial infarction; Z87.891 Personal history of nicotine dependence; Z88.1 Allergy status to other antibiotic agents
CPT/HCPCS: 36415; 70491-TC; 71045-TC-FY; 71250-TC; 76775-TC; 76942; 78306-TC; 80048; 80053; 81003; 81015; 82042; 82150; 82436; 82570; 82945; 83605; 83615; 83735; 83930; 83935; 83986; 84100; 84133; 84156; 84157; 84300; 84443; 84478; 85025; 85027; 85610; 85730; 87040; 87070; 87075; 87102; 87116; 87205; 87206; 87210; 87804; 87880; 87899; 88108; 88305-TC; 93005; 93010; 94640; 94761; 97116-GP; 97161-GP; 99283-25; A9503; J1644; J7030

== ENCOUNTER 2018-09-23 10:40 | Inpatient (IN) | payer OTHER ==
[2018-09-23] MEDS ORDERED: ALBUTEROL SO4 2.5/IPRATROPIUM 0.5 INH SOL 3 ML VIAL.NEB. NEB ONE ×2 (11:20→11:38)
[2018-09-23] MEDS ORDERED: ACETAMINOPHEN 1000 MG/100 ML VIAL (NON FORMULARY) IVPB ONE (11:21)
[2018-09-23 11:31] VITALS: BMI 21.9
[2018-09-23] MEDS ORDERED: ACETAMINOPHEN INJECTION 100 ML IVPB ONE (11:39)
[2018-09-23 11:46] LABS: BASO % 0.5 % (0-2.0); EOS % 0.9 % (0-4.5); HEMOGLOBIN 11.2 GM/dL (10.7-15.3); LYMPH % 12.3 % (8-40); MCH 28.6 pg (25.7-33.7); MCHC 32.8 g/dl (32.0-36.0); MEAN CELL VOLUME 87.1 fl (80-96); MONO % 9.2 % (3.8-10.2); NEUT % 77.1 % (42.8-82.8); PLATELET COUNT 250 K/MM3 (134-434); RBC 3.91 M/mm3 (3.60-5.2); RDW 15.8 % (11.6-15.6)
[2018-09-23 11:50] LABS: VENOUS PC02 55.3 mmHg (38-52); VENOUS PH 7.38 (7.32-7.42); VENOUS PO2 26.5 mmHg (28-48)
[2018-09-23 12:05] LABS: INR 0.97 (0.83-1.09); PROTHROMBIN TIME (PATIENT) 11.5 SEC (9.7-13.0)
[2018-09-23 12:08] LABS: ACTIVATED PTT 29.6 SECONDS (25.2-36.5)
[2018-09-23 12:13] LABS: ALBUMIN 2.9 g/dl (3.4-5.0); ALK PHOS 77 U/L (45-117); ANION GAP 9 MMOL/L (8-16); BILIRUBIN,TOTAL 0.5 mg/dL (0.2-1); BLOOD UREA NITROGEN 25 mg/dL (7-18); CALCIUM 8.7 mg/dL (8.5-10.1); CHLORIDE 100 mmol/L (98-107); CO2 31 mmol/L (21-32); GLUCOSE,RANDOM 90 mg/dL (74-106); N-TERMINAL BNP 14270.1 pg/ml (5-450); POTASSIUM 3.7 mmol/L (3.5-5.1); SGOT/AST 15 U/L (15-37); SGPT/ALT 12 U/L (13-61); SODIUM 139 mmol/L (136-145); TOT PROT 6.5 g/dl (6.4-8.2)
[2018-09-23] MEDS ORDERED: VANCOMYCIN 1,000 MG in DEXTROSE 5%-WATER - 250 ML IVPB ONE (12:50)
[2018-09-23] MEDS ORDERED: AZTREONAM 2 GM in DEXTROSE 5%-WATER 100 ML IVPB ONE (12:54)
--- NOTE | 2018-09-23 13:01 | PDOC ---
History of Present Illness - General Chief Complaint: Shortness of Breath Stated Complaint: SYNCOPE Time Seen by Provider: 09/23/18 10:52 - History of Present Illness Initial Comments: 09/23/18 12:58 The patient is a 78 year old female, with a significant past medical history of Breast CA (10 years ago), Dementia, COPD, Asthma, Anemia, HTN, Hypothyroidism , gout, and recent admission (August 2018) for left pleural effusion s/p Thoracentesis (09/03/18) with 350cc fluid drained - parapneumonic - without malignancies, who presents to the emergency department from [facility] via EMS complaining of difficulty breathing for the past couple of days with associated cough and subjective fever. The patient states her breathing is aggravated when lying in bed. The patient reports feeling like passing out while walking today but states she was assisted to a chair. She denies LOC. Patient reports she can not lay flat secondary to increased difficulty breathing. The patient denies chest pain, headache and dizziness. Denies nausea, vomit, diarrhea and constipation. Denies dysuria, frequency, urgency and hematuria. Allergies: NKDA Past surgical history: Hernia repair Social history: Everyday smoker PCP: Dr. Britton Past History - Past Medical History Allergies/Adverse Reactions: Allergies Allergy/AdvReac Type Severity Reaction Status Date / Time [place] And Derivatives Allergy Unknown Verified 09/02/18 12:14 cefuroxime [From Ceftin] Allergy Verified 08/30/18 16:17 Penicillins Allergy Verified 09/02/18 09:20 Home Medications: Ambulatory Orders Allopurinol [Zyloprim -] 100 mg PO DAILY 08/30/18 Amlodipine Besylate [Norvasc -] 10 mg PO DAILY 08/30/18 Budesonide/Formeterol Fumarate [SYMBICORT 160/4.5mcg -] 2 inh PO BID 08/30/18 Calcium Carbonate/Vitamin D3 [Calcium 600+D Softgel] 2 each PO DAILY 08/30/18 Docusate Sodium [Colace] 100 mg PO BID 08/30/18 Levothyroxine [Synthroid -] 75 mcg PO DAILY 08/30/18 Albuterol Sulfate Inhaler - [Ventolin Hfa Inhaler -] 1 - 2 inh PO Q4H PRN #1 inhaler 09/09/18 Tiotropium [place] [Spiriva Respimat] 2 puff IH DAILY #1 mist.inhal 09/09/18 Anemia: Yes Asthma: Yes Cancer: Yes (Breast CA) COPD: Yes Dementia: Yes GI Disorders: Yes (GERD) HTN: Yes Thyroid Disease: Yes Lung CA: Yes - Surgical History Abdominal Surgery: Yes (hernia repair) Cholecystectomy: Yes - Immunization History Immunization Up to Date: Yes - Suicide/Smoking/Psychosocial Hx Smoking History: Unknown if ever smoked Have you smoked in the past 12 months: No Number of Cigarettes Smoked Daily: 5 Information on smoking cessation initiated: No 'Breaking Loose' booklet given: 08/31/18 Hx Alcohol Use: No Drug/Substance Use Hx: No Hx Substance Use Treatment: No Review of Systems - Review of Systems Comments:: 09/23/18 12:59 GENERAL/CONSTITUTIONAL: + subjective fever. No chills. No weakness. HEAD, EYES, EARS, NOSE AND THROAT: No change in vision. No ear pain or discharge. No sore throat. GASTROINTESTINAL: No nausea, vomiting, diarrhea or constipation. GENITOURINARY: No dysuria, frequency, or change in urination. CARDIOVASCULAR: No chest pain or shortness of breath. RESPIRATORY: + cough, No wheezing. No hemoptysis. MUSCULOSKELETAL: No joint or muscle swelling or pain. No neck or back pain. SKIN: No rash NEUROLOGIC: No headache, vertigo, loss of consciousness, or change in strength/ sensation. ENDOCRINE: No increased thirst. No abnormal weight change. HEMATOLOGIC/LYMPHATIC: No anemia, easy bleeding, or history of blood clots. ALLERGIC/IMMUNOLOGIC: No hives or skin allergy. *Physical Exam - Vital Signs Last Vital Signs Temp Pulse Resp BP Pulse Ox 100.9 F H 89 18 134/87 96 09/23/18 11:28 09/23/18 12:40 09/23/18 10:54 09/23/18 10:54 09/23/18 12:40 - Physical Exam Comments: 09/23/18 12:59 GENERAL: Awake, alert, and fully oriented, in no acute distress EYES: PERRLA, EOMI, sclera anicteric, conjunctiva clear ENT: Oropharynx clear without exudates. Moist mucosa NECK: Normal ROM, supple, no lymphadenopathy, JVD, or masses LUNGS: (+) mild increased work of breathing. +diminshed BS at the R base HEART: Tachycardic to 106 but regular, normal S1 and S2, no murmurs, rubs or gallops ABDOMEN: Soft, nontender, normoactive bowel sounds. No guarding, no rebound. No masses EXTREMITIES: 1+ bilateral symmetric pitting edema. No clubbing or cyanosis. No cords, erythema, or tenderness NEUROLOGICAL: Normal speech, cranial nerves intact, equal strength and sensation b/l SKIN: Warm, Dry, normal turgor, no rashes or lesions noted. Moderate Sedation - Procedure Monitoring Vital Signs: Procedure Monitoring Vital Signs Temperature 100.9 F H 09/23/18 11:28 Pulse Rate 89 09/23/18 12:40 Respiratory Rate 18 09/23/18 10:54 Blood Pressure 134/87 09/23/18 10:54 O2 Sat by Pulse Oximetry (%) 96 09/23/18 12:40 Heart Score/ECG Review #1 09/23/18 13:04 Twelve-lead EKG was performed and reviewed by me. Sinus rhythm, rate 100. Left anterior fascicular block and right bundle branch block. When compared to EKG from 09/02/2018, no significant change. ED Treatment Course - LABORATORY CBC & Chemistry Diagram: 09/23/18 11:25 09/23/18 11:27 - ADDITIONAL ORDERS Additional order review: Laboratory Results 09/23/18 09/23/18 09/23/18 11:29 11:29 11:27 PT with INR 11.50 INR 0.97 PTT (Actin FS) 29.6 VBG pH POC VBG pCO2 POC VBG pO2 Mixed VBG HCO3 Sodium 139 Potassium 3.7 Chloride 100 Carbon Dioxide 31 Anion Gap 9 BUN 25 H Creatinine 2.0 H Creat Clearance w eGFR 24.22 Random Glucose 90 Lactic Acid 1.1 Calcium 8.7 Magnesium Total Bilirubin 0.5 AST 15 ALT 12 L Alkaline Phosphatase 77 Troponin I B-Natriuretic Peptide 99643.1 H Total Protein 6.5 Albumin 2.9 L TSH 09/23/18 09/23/18 11:27 11:25 PT with INR INR PTT (Actin FS) VBG pH 7.38 POC VBG pCO2 55.3 H POC VBG pO2 26.5 L Mixed VBG HCO3 31.7 H Sodium Potassium Chloride Carbon Dioxide Anion Gap BUN Creatinine Creat Clearance w eGFR Random Glucose Lactic Acid Calcium Magnesium 2.0 Total Bilirubin AST ALT Alkaline Phosphatase Troponin I 0.07 H B-Natriuretic Peptide Total Protein Albumin TSH 3.65 09/23/18 11:25 RBC 3.91 MCV 87.1 MCHC 32.8 RDW 15.8 H MPV 8.0 Neutrophils % 77.1 Lymphocytes % 12.3 D Monocytes % 9.2 D Eosinophils % 0.9 D Basophils % 0.5 - RADIOLOGY Radiology Studies Ordered: Category Date Time Status CHEST X-RAY PORTABLE* [RAD] Stat Radiology 09/23/18 11:19 Completed - Medications Given in the ED: ED Medications Discontinued Medications Generic Name Dose Route Start Last Admin Trade Name Freq PRN Reason Stop Dose Admin Acetaminophen 1,000 mg 09/23/18 11:21 09/23/18 11:43 Ofirmev Injection - IVPB 09/23/18 11:22 1,000 mg ONCE ONE Administration Albuterol/Ipratropium 1 amp 09/23/18 11:20 09/23/18 11:43 Duoneb - NEB 09/23/18 11:21 1 amp ONCE ONE Administration Medical Decision Making - Medical Decision Making 09/23/18 13:06 78yo F, recent admission for pneumonia presents to the ED with progressive SOB, productive cough, fever. In ED, pt is febrile, hypoxic on NC, and mildly tachycardic. Sepsis w/u initiated. Exam consistent with PNA. CXR with worsening infiltrate. Plan to cover with vanc/aztreonem and admit. 09/23/18 13:[address] Maharaj Case discussed in detail with admitting physician including history, physical exam and ancillary studies. Admitting physician has assumed care for the patient, will follow all pending diagnostics and will complete the evaluation and treatment. *DC/Admit/Observation/Transfer Diagnosis at time of Disposition: Pneumonia, Pleural effusion, Cough - Referrals Referrals: Isra Britton MD [Primary Care Provider] - - Patient Instructions - Post Discharge Activity
[2018-09-23] MEDS ORDERED: VANCOMYCIN 1 GRAM (PRE-DOCKED) 1,000 MG/250 ML BAG IVPB ONE (13:09)
--- NOTE | 2018-09-23 13:20 | EKG ---
Test Reason : Blood Pressure : / mmHG Vent. Rate : 100 BPM Atrial Rate : 100 BPM P-R Int : 202 ms QRS Dur : 150 ms QT Int : 388 ms P-R-T Axes : 080 -82 -01 degrees QTc Int : 500 ms POOR DATA QUALITY, INTERPRETATION MAY BE ADVERSELY AFFECTED SINUS RHYTHM WITH PREMATURE ATRIAL COMPLEXES RIGHT BUNDLE BRANCH BLOCK LEFT ANTERIOR FASCICULAR BLOCK BIFASCICULAR BLOCK ABNORMAL ECG WHEN COMPARED WITH ECG OF 02-SEP-2018 14:57, PREMATURE ATRIAL COMPLEXES ARE NOW PRESENT [place] INTERVAL HAS DECREASED Confirmed by HIEN FREED MD ([id number]) on 09/23/2018 1:20:08 PM Referred By: Confirmed By:HIEN FREED MD
[2018-09-23 14:29] LABS: URINE APPEARANCE SLCLOUDY; URINE BILIRUBIN NEGATIVE (<2.0 mg/dL); URINE COLOR YELLOW; URINE GLUCOSE (UA) NEGATIVE (NEGATIVE); URINE KETONE NEGATIVE (NEGATIVE); URINE LEUK ESTERASE NEGATIVE (NEGATIVE); URINE NITRITE NEGATIVE (NEGATIVE); URINE PROTEIN 3+ (NEGATIVE); URINE UROBILINOGEN NEGATIVE mg/dL (0.2-1.0)
[2018-09-23 15:29] LABS: EPI CELLS FEW /HPF (FEW)
--- NOTE | 2018-09-23 16:51 | HP ---
Admitting History and Physical - Primary Care Physician PCP: Julee Maharaj - Admission History of Present Illness: 78 year old female, with a significant past medical history of Breast CA (10 years ago), Dementia, COPD, Asthma, Anemia, HTN, Hypothyroidism, gout, and recent admission (August 2018) for left pleural effusion s/p Thoracentesis (09/03/18) with 350cc fluid drained - parapneumonic - without malignancies, who presents to the emergency department from [facility] via EMS complaining of difficulty breathing for the past couple of days with associated cough and subjective fever. The patient states her breathing is aggravated when lying in bed. The patient reports feeling like passing out while walking today but states she was assisted to a chair. Patient reports she can not lay flat secondary to increased difficulty breathing. - Past Medical History Cardiovascular: Yes: CAD, HTN, [place] (25 yrs ago) - Smoking History Smoking history: Unknown if ever smoked Have you smoked in the past 12 months: No Aproximately how many cigarettes per day: 5 - Alcohol/Substance Use Hx Alcohol Use: No Home Medications - Allergies Allergies/Adverse Reactions: Allergies Allergy/AdvReac Type Severity Reaction Status Date / Time cefuroxime [From Ceftin] Allergy Verified 08/30/18 16:17 orange Allergy Verified 09/26/18 09:47 orange juice Allergy Verified 09/26/18 09:48 Penicillins Allergy Verified 09/02/18 09:20 - Home Medications Home Medications: Ambulatory Orders Allopurinol [Zyloprim -] 100 mg PO DAILY 08/30/18 Budesonide/Formeterol Fumarate [SYMBICORT 160/4.5mcg -] 2 inh PO BID 08/30/18 Calcium Carbonate/Vitamin D3 [Calcium 600+D Softgel] 2 each PO DAILY 08/30/18 Docusate Sodium [Colace] 100 mg PO BID 08/30/18 Levothyroxine [Synthroid -] 75 mcg PO DAILY 08/30/18 Albuterol Sulfate Inhaler - [Ventolin Hfa Inhaler -] 1 - 2 inh PO Q4H PRN #1 inhaler 09/09/18 Tiotropium [place] [Spiriva Respimat] 2 puff IH DAILY #1 mist.inhal 09/09/18 Amlodipine Besylate [Norvasc -] 5 mg PO DAILY #30 tablet 09/26/18 Nebivolol [Bystolic -] 2.5 mg PO DAILY #30 tab 09/26/18 Prednisone 10 mg PO ASDIR #30 tablet 09/26/18 Family Disease History - Family Disease History Family Disease History: CA: Sister Physical Examination Vital Signs: Vital Signs Temperature 100.9 F H 09/23/18 11:28 Pulse Rate 97 H 09/23/18 14:55 Respiratory Rate 20 09/23/18 14:55 Blood Pressure 125/60 09/23/18 14:55 O2 Sat by Pulse Oximetry (%) 96 09/23/18 14:57 Constitutional: Yes: No Distress HENT: Yes: Atraumatic Cardiovascular: Yes: Regular Rate and Rhythm Respiratory: Yes: Rhonchi, Wheezes Gastrointestinal: Yes: Normal Bowel Sounds Extremities: Yes: WNL Edema: No Peripheral Pulses WNL: Yes Neurological: Yes: Alert, Oriented Labs: CBC, BMP 09/23/18 11:25 09/23/18 11:27 Imaging - Results X-ray: Report Reviewed Problem List - Problems (1) Cough Assessment/Plan: prn cough syrup Code(s): R05 - COUGH (2) Pleural effusion Code(s): J90 - PLEURAL EFFUSION, NOT ELSEWHERE CLASSIFIED (3) Pneumonia Assessment/Plan: abx per id Code(s): J18.9 - PNEUMONIA, UNSPECIFIED ORGANISM (4) Asthma Assessment/Plan: on steroids duo nebs Code(s): J45.909 - UNSPECIFIED ASTHMA, UNCOMPLICATED (5) CKD (chronic kidney disease) Assessment/Plan: monitor Code(s): N18.9 - CHRONIC KIDNEY DISEASE, UNSPECIFIED Qualifiers: Chronic kidney disease stage: stage 3 (moderate) Qualified Code(s): N18.3 - Chronic kidney disease, stage 3 (moderate) (6) H/O malignant neoplasm of breast Code(s): Z85.3 - PERSONAL HISTORY OF MALIGNANT NEOPLASM OF BREAST (7) Acute exacerbation of chronic obstructive airways disease Code(s): J44.1 - CHRONIC OBSTRUCTIVE PULMONARY DISEASE W (ACUTE) EXACERBATION (8) CHF (congestive heart failure) Assessment/Plan: iv lasix cardiology consult Code(s): I50.9 - HEART FAILURE, UNSPECIFIED (9) HTN (hypertension) Assessment/Plan: on meds stable Code(s): I10 - ESSENTIAL (PRIMARY) HYPERTENSION Qualifiers: Hypertension type: essential hypertension Qualified Code(s): I10 - Essential (primary) hypertension (10) Gout Code(s): M10.9 - GOUT, UNSPECIFIED Assessment/Plan Laboratory Tests 09/23/18 09/23/18 09/23/18 11:25 11:25 11:27 WBC 6.0 RBC 3.91 Hgb 11.2 Hct 34.0 MCV 87.1 MCH 28.6 MCHC 32.8 RDW 15.8 H Plt Count 250 D MPV 8.0 Absolute Neuts (auto) 4.6 Neutrophils % 77.1 Lymphocytes % 12.3 D Monocytes % 9.2 D Eosinophils % 0.9 D Basophils % 0.5 Nucleated RBC % 0 PT with INR INR PTT (Actin FS) VBG pH 7.38 POC VBG pCO2 55.3 H POC VBG pO2 26.5 L Mixed VBG HCO3 31.7 H Sodium Potassium Chloride Carbon Dioxide Anion Gap BUN Creatinine Creat Clearance w eGFR Random Glucose Lactic Acid Calcium Magnesium 2.0 Total Bilirubin AST ALT Alkaline Phosphatase Troponin I 0.07 H B-Natriuretic Peptide Total Protein Albumin TSH 3.65 Urine Color Urine Appearance Urine pH Ur Specific [place] Urine Protein Urine Glucose (UA) Urine Ketones Urine Blood Urine Nitrite Urine Bilirubin Urine Urobilinogen Ur Leukocyte Esterase Urine WBC (Auto) Urine RBC (Auto) Ur Epithelial Cells Influenza A (Rapid) Influenza B (Rapid) 09/23/18 09/23/18 09/23/18 11:27 11:27 11:29 WBC RBC Hgb Hct MCV MCH MCHC RDW Plt Count MPV Absolute Neuts (auto) Neutrophils % Lymphocytes % Monocytes % Eosinophils % Basophils % Nucleated RBC % PT with INR 11.50 INR 0.97 PTT (Actin FS) 29.6 VBG pH POC VBG pCO2 POC VBG pO2 Mixed VBG HCO3 Sodium 139 Potassium 3.7 Chloride 100 Carbon Dioxide 31 Anion Gap 9 BUN 25 H Creatinine 2.0 H Creat Clearance w eGFR 24.22 Random Glucose 90 Lactic Acid Calcium 8.7 Magnesium Total Bilirubin 0.5 AST 15 ALT 12 L Alkaline Phosphatase 77 Troponin I B-Natriuretic Peptide 50587.1 H Total Protein 6.5 Albumin 2.9 L TSH Urine Color Urine Appearance Urine pH Ur Specific [place] Urine Protein Urine Glucose (UA) Urine Ketones Urine Blood Urine Nitrite Urine Bilirubin Urine Urobilinogen Ur Leukocyte Esterase Urine WBC (Auto) Urine RBC (Auto) Ur Epithelial Cells Influenza A (Rapid) Negative Influenza B (Rapid) Negative 09/23/18 09/23/18 11:29 13:24 WBC RBC Hgb Hct MCV MCH MCHC RDW Plt Count MPV Absolute Neuts (auto) Neutrophils % Lymphocytes % Monocytes % Eosinophils % Basophils % Nucleated RBC % PT with INR INR PTT (Actin FS) VBG pH POC VBG pCO2 POC VBG pO2 Mixed VBG HCO3 Sodium Potassium Chloride Carbon Dioxide Anion Gap BUN Creatinine Creat Clearance w eGFR Random Glucose Lactic Acid 1.1 Calcium Magnesium Total Bilirubin AST ALT Alkaline Phosphatase Troponin I B-Natriuretic Peptide Total Protein Albumin TSH Urine Color Yellow Urine Appearance Sl[place]y Urine pH 5.0 Ur Specific [place] 1.016 Urine Protein 3+ H Urine Glucose (UA) Negative Urine Ketones Negative Urine Blood Negative Urine Nitrite Negative Urine Bilirubin Negative Urine Urobilinogen Negative Ur Leukocyte Esterase Negative Urine WBC (Auto) 8 Urine RBC (Auto) 2 Ur Epithelial Cells Few Influenza A (Rapid) Influenza B (Rapid) Active Medications Generic Name Dose Route Start Last Admin Trade Name [place] PRN Reason Stop Dose Admin Albuterol/Ipratropium 1 amp 09/23/18 16:48 Duoneb - NEB Q4H PRN SHORTNESS OF BREATH Allopurinol 100 mg 09/24/18 10:00 Zyloprim - PO DAILY KASSIDY Amlodipine Besylate 10 mg 09/24/18 10:00 Norvasc - PO DAILY KASSIDY Budesonide/Formoterol Fumarate 2 puff 09/23/18 22:00 Symbicort 160/4.5mcg - IH BID KASSIDY Heparin Sodium (Porcine) 5,000 unit 09/23/18 22:00 Heparin - SQ BID KASSIDY Levothyroxine Sodium 75 mcg 09/24/18 10:00 Synthroid - PO DAILY KASSIDY Tiotropium [place] 2 puff 09/24/18 10:00 Spiriva Respimat IH DAILY KASSIDY
[2018-09-23] MEDS: ALBUTEROL SO4 2.5/IPRATROPIUM 0.5 INH SOL 3 ML VIAL.NEB. NEB PRN ×2 (17:13→20:35)
[2018-09-23] MEDS: HEPARIN NA (PORCINE) 5,000 UNITS/ML 1ML VIAL SQ SCH (21:38)
[2018-09-23] MEDS: BUDESONIDE/FORMETEROL FUMARATE 160/4.5 mcg INHALER IH SCH (22:45)
[2018-09-24] MEDS: ALBUTEROL SO4 2.5/IPRATROPIUM 0.5 INH SOL 3 ML VIAL.NEB. NEB PRN (06:05)
[2018-09-24] MEDS: LEVOTHYROXINE NA 75 MCG TABLET (FP) PO SCH (06:44)
[2018-09-24 07:42] LABS: BASO % 0.6 % (0-2.0); EOS % 0.4 % (0-4.5); HEMATOCRIT 29.8 % (32.4-45.2); LYMPH % 12.6 % (8-40); MCH 28.9 pg (25.7-33.7); MCHC 33.6 g/dl (32.0-36.0); MEAN PLT VOLUME 8.3 fl (7.5-11.1); MONO % 9.9 % (3.8-10.2); NEUT % 76.5 % (42.8-82.8); PLATELET COUNT 228 K/MM3 (134-434); RBC 3.46 M/mm3 (3.60-5.2); RDW 15.8 % (11.6-15.6); WHITE BLOOD COUNT 5.8 K/mm3 (4.0-10.0)
[2018-09-24 08:22] LABS: ALBUMIN 2.6 g/dl (3.4-5.0); ALK PHOS 73 U/L (45-117); ANION GAP 9 MMOL/L (8-16); BILIRUBIN,TOTAL 0.4 mg/dL (0.2-1); BLOOD UREA NITROGEN 28 mg/dL (7-18); CALCIUM 8.2 mg/dL (8.5-10.1); CHLORIDE 99 mmol/L (98-107); CO2 30 mmol/L (21-32); CREATININE 2.2 mg/dL (0.55-1.3); GLUCOSE,RANDOM 78 mg/dL (74-106); POTASSIUM 3.8 mmol/L (3.5-5.1); SGOT/AST 16 U/L (15-37); SGPT/ALT 11 U/L (13-61); SODIUM 137 mmol/L (136-145); TOT PROT 5.9 g/dl (6.4-8.2)
[2018-09-24] MEDS: ALBUTEROL SO4 0.083% IH SOL 2.5 MG/3 ML VIAL.NEB. NEB PRN (09:07)
[2018-09-24] MEDS ORDERED: PT OWN MED DRAWER 7, Y5N ONE (09:48)
[2018-09-24] MEDS: HEPARIN NA (PORCINE) 5,000 UNITS/ML 1ML VIAL SQ SCH ×2 (09:55→21:53)
[2018-09-24] MEDS: methylPREDNISolone NA SUCC 40 MG/1 ML VIAL IVPUSH SCH ×2 (09:55→17:57)
[2018-09-24] MEDS: amLODIPine BESYLATE 10 MG TABLET (FP) PO SCH (09:55)
[2018-09-24] MEDS ORDERED: ALBUTEROL SO4 2.5/IPRATROPIUM 0.5 INH SOL 3 ML VIAL.NEB. NEB ONE (10:18)
--- NOTE | 2018-09-24 10:18 | CON.PULM ---
Consult Consult Specialty:: PULM/CCM Referred by:: JAMES Reason for Consultation:: SOB - History of Present Illness Chief Complaint: SOB History of Present Illness: 78 F, active smoker (3 cigs a day), Breast CA (10 years ago), Dementia, COPD, Asthma, Anemia, HTN, Hypothyroidism, gout, PTX age 32, and recent admission for left pleural effusion s/p Thoracentesis (09/03/18) with 350cc transudative effusion. Cytology and microbiology was (-). Admitted for 4 days of SOB. No recent travel history or sick contacts. No fever or chills. No hemoptysis. CXR: Left effusion. - History Source History Provided By: Patient Limitations to Obtaining History: No Limitations - Past Medical History Cardio/Vascular: Yes: CAD, HTN, [place] (25 yrs ago) Pulmonary: Yes: Bronchitis, COPD, O2 Dependent, Pneumonia. No: Previously Intubated, Pulmonary Embolus, Pulmonary Fibrosis, Sleep Apnea - Alcohol/Substance Use Hx Alcohol Use: No - Smoking History Smoking history: Unknown if ever smoked Have you smoked in the past 12 months: No Aproximately how many cigarettes per day: 5 Home Medications - Allergies Allergies/Adverse Reactions: Allergies Allergy/AdvReac Type Severity Reaction Status Date / Time [place] And Derivatives Allergy Unknown Verified 09/02/18 12:14 cefuroxime [From Ceftin] Allergy Verified 08/30/18 16:17 Penicillins Allergy Verified 09/02/18 09:20 - Home Medications Home Medications: Ambulatory Orders Allopurinol [Zyloprim -] 100 mg PO DAILY 08/30/18 Amlodipine Besylate [Norvasc -] 10 mg PO DAILY 08/30/18 Budesonide/Formeterol Fumarate [SYMBICORT 160/4.5mcg -] 2 inh PO BID 08/30/18 Calcium Carbonate/Vitamin D3 [Calcium 600+D Softgel] 2 each PO DAILY 08/30/18 Docusate Sodium [Colace] 100 mg PO BID 08/30/18 Levothyroxine [Synthroid -] 75 mcg PO DAILY 08/30/18 Albuterol Sulfate Inhaler - [Ventolin Hfa Inhaler -] 1 - 2 inh PO Q4H PRN #1 inhaler 09/09/18 Tiotropium [place] [Spiriva Respimat] 2 puff IH DAILY #1 mist.inhal 09/09/18 Family Disease History - Family Disease History Family Disease History: CA: Sister Review of Systems - Review of Systems Constitutional: reports: Malaise. denies: Chills, Fever, Night Sweats Eyes: reports: No Symptoms HENT: reports: No Symptoms Neck: reports: No Symptoms Cardiovascular: reports: Shortness of Breath. denies: Chest Pain, Edema, Palpitations Respiratory: reports: Cough, Orthopnea, SOB, SOB on Exertion, Wheezing. denies : Hemoptysis, Snoring Gastrointestinal: reports: No Symptoms Genitourinary: reports: No Symptoms Breasts: reports: No Symptoms Reported Musculoskeletal: reports: No Symptoms Integumentary: reports: No Symptoms Neurological: reports: No Symptoms Endocrine: reports: No Symptoms Hematology/Lymphatic: reports: No Symptoms Psychiatric: reports: No Symptoms Physical Exam Vital Sings: Vital Signs Temperature 98 F 09/24/18 06:00 Pulse Rate 110 H 09/24/18 06:00 Respiratory Rate 20 09/24/18 06:00 Blood Pressure 140/79 09/24/18 06:00 O2 Sat by Pulse Oximetry (%) 90 L 09/23/18 21:00 Constitutional: Yes: Moderate Distress Eyes: Yes: Conjunctiva Clear, EOM Intact HENT: Yes: Atraumatic, Normocephalic Neck: Yes: Supple, Trachea Midline Cardiovascular: Yes: Tachycardia Respiratory: Yes: Accessory Muscle Use, Cough, On Nasal O2, Rhonchi, SOB, SOB on Exertion, Tachypnea, Wheezes. No: Rales, Stridor ...Inspection: Yes: WNL ...Clubbing: No Gastrointestinal: Yes: Normal Bowel Sounds, Soft Renal/: Yes: WNL Musculoskeletal: Yes: WNL Extremities: Yes: WNL Edema: No Peripheral Pulses WNL: Yes Integumentary: Yes: WNL Neurological: Yes: WNL, Alert, Oriented ...Motor Strength: WNL Psychiatric: Yes: WNL, Alert, Oriented Labs: CBC, BMP 09/24/18 05:40 09/24/18 05:40 Imaging - Results Chest X-ray: Report Reviewed, Image Reviewed Problem List - Problems (1) Acute exacerbation of chronic obstructive airways disease Code(s): J44.1 - CHRONIC OBSTRUCTIVE PULMONARY DISEASE W (ACUTE) EXACERBATION (2) Cough Code(s): R05 - COUGH (3) Pleural effusion Code(s): J90 - PLEURAL EFFUSION, NOT ELSEWHERE CLASSIFIED (4) Allergy to multiple antibiotics Code(s): Z88.1 - ALLERGY STATUS TO OTHER ANTIBIOTIC AGENTS STATUS (5) Asthma Code(s): J45.909 - UNSPECIFIED ASTHMA, UNCOMPLICATED (6) CKD (chronic kidney disease) Code(s): N18.9 - CHRONIC KIDNEY DISEASE, UNSPECIFIED (7) Gout Code(s): M10.9 - GOUT, UNSPECIFIED (8) H/O malignant neoplasm of breast Code(s): Z85.3 - PERSONAL HISTORY OF MALIGNANT NEOPLASM OF BREAST Assessment/Plan Do not suspect PNA Medrol BD TX standing in PRN O2 as needed Would monitor off ABX for now Would defer repeat repeat thoracentesis for now Will need outpatient imaging followup No smoking discussed Will follow Dr Ferrer
[2018-09-24] MEDS: TIOTROPIUM BROMIDE 2.5 MCG (SPIRIVA) RESPIMAT INHALER IH SCH (10:35)
[2018-09-24] MEDS: ALLOPURINOL 100 MG TABLET (FP) PO SCH (10:36)
[2018-09-24] MEDS: BUDESONIDE/FORMETEROL FUMARATE 160/4.5 mcg INHALER IH SCH ×2 (10:36→21:56)
[2018-09-24] MEDS: ALBUTEROL SO4 2.5/IPRATROPIUM 0.5 INH SOL 3 ML VIAL.NEB. NEB SCH ×3 (11:41→20:43)
[2018-09-24] MEDS ORDERED: FUROSEMIDE 40 MG/4 ML INJECTABLE VIAL IVPUSH ONE (14:01)
--- NOTE | 2018-09-24 14:03 | CON.CARD ---
Consult Consult Specialty:: Cardiology Referred by:: Dr. Maharaj Reason for Consultation:: Cardiac evaluation - History of Present Illness Chief Complaint: SOB History of Present Illness: Patient is a 78 year old female recently admitted with pleural effusion s/p thoracentesis found to be transudate, underlying history of breast CA (10 years ago), COPD, anemia, HTN, hypothyroidism and gout who again is admitted with worsening shortness of breath. She denies chest pain or palpitations. She appears to have some orthopnea. She denies fever or chills. She denies nausea, vomiting, diarrhea or abdominal pain. She complained of dizziness but no LOC. She has nonproductive cough. Cardiology consultation was called for further evaluation. Current Cr is 2.2. - History Source History Provided By: Patient, Medical Record Limitations to Obtaining History: No Limitations - Past Medical History Cardio/Vascular: Yes: CAD, HTN, [place] (25 yrs ago) Pulmonary: Yes: Bronchitis, COPD, O2 Dependent, Pneumonia Heme/Onc: Yes: Cancer (Breast CA) Endocrine: Yes: Hypothyroidism - Past Surgical History Additional Surgical History: Hernia repair - Alcohol/Substance Use Hx Alcohol Use: No History of Substance Use: reports: None - Smoking History Smoking history: Current every day smoker Have you smoked in the past 12 months: Yes Aproximately how many cigarettes per day: 3 Home Medications - Allergies Allergies/Adverse Reactions: Allergies Allergy/AdvReac Type Severity Reaction Status Date / Time [place] And Derivatives Allergy Unknown Verified 09/02/18 12:14 cefuroxime [From Ceftin] Allergy Verified 08/30/18 16:17 Penicillins Allergy Verified 09/02/18 09:20 - Home Medications Home Medications: Ambulatory Orders Allopurinol [Zyloprim -] 100 mg PO DAILY 08/30/18 Amlodipine Besylate [Norvasc -] 10 mg PO DAILY 08/30/18 Budesonide/Formeterol Fumarate [SYMBICORT 160/4.5mcg -] 2 inh PO BID 08/30/18 Calcium Carbonate/Vitamin D3 [Calcium 600+D Softgel] 2 each PO DAILY 08/30/18 Docusate Sodium [Colace] 100 mg PO BID 08/30/18 Levothyroxine [Synthroid -] 75 mcg PO DAILY 08/30/18 Albuterol Sulfate Inhaler - [Ventolin Hfa Inhaler -] 1 - 2 inh PO Q4H PRN #1 inhaler 09/09/18 Tiotropium [place] [Spiriva Respimat] 2 puff IH DAILY #1 mist.inhal 09/09/18 Family Disease History - Family Disease History Family Disease History: CA: Sister Review of Systems - Review of Systems Constitutional: denies: Chills, Fever Cardiovascular: reports: Shortness of Breath. denies: Chest Pain, Palpitations Respiratory: reports: Cough, Orthopnea, SOB, SOB on Exertion. denies: Hemoptysis, PND Genitourinary: denies: Dysuria, Hematuria Musculoskeletal: denies: Back Pain, Joint Pain Neurological: denies: Dizziness, Headache, Seizure, Syncope Vital Signs: Vital Signs Temperature 98.2 F 09/24/18 09:00 Pulse Rate 125 H 09/24/18 09:00 Respiratory Rate 24 H 09/24/18 09:00 Blood Pressure 158/66 09/24/18 09:00 O2 Sat by Pulse Oximetry (%) 83 L 09/24/18 09:00 Eyes: Yes: PERRL Neck: Yes: Supple Respiratory: Yes: Diminished, SOB Gastrointestinal: Yes: Normal Bowel Sounds, Soft, Other (ventral hernia). No: Tenderness Cardiovascular: Yes: Regular Rate and Rhythm, Tachycardia PMI: Non-Displaced Heart Sounds: Yes: S1, S2 Murmur: Yes: Systolic Murmur, Grade 1 Edema: No - Other Data Labs, Other Data: CBC, BMP 09/24/18 05:40 09/24/18 05:40 INR, PTT INR 0.97 (0.83-1.09) 09/23/18 11:29 Troponin, BNP 09/23/18 17:45 Troponin I 0.06 H Laboratory Results - last 24 hr 09/23/18 09/23/18 09/23/18 13:24 17:45 21:10 WBC RBC Hgb Hct MCV MCH MCHC RDW Plt Count MPV Absolute Neuts (auto) Neutrophils % Lymphocytes % Monocytes % Eosinophils % Basophils % Nucleated RBC % Sodium Potassium Chloride Carbon Dioxide Anion Gap BUN Creatinine Creat Clearance w eGFR Random Glucose Lactic Acid 1.3 Calcium Total Bilirubin AST ALT Alkaline Phosphatase Creatine Kinase 85 Troponin I 0.06 H Total Protein Albumin Urine Color Yellow Urine Appearance Slcloudy Urine pH 5.0 Ur Specific [place] 1.016 Urine Protein 3+ H Urine Glucose (UA) Negative Urine Ketones Negative Urine Blood Negative Urine Nitrite Negative Urine Bilirubin Negative Urine Urobilinogen Negative Ur Leukocyte Esterase Negative Urine WBC (Auto) 8 Urine RBC (Auto) 2 Ur Epithelial Cells Few 09/24/18 09/24/18 05:40 05:40 WBC 5.8 RBC 3.46 L Hgb 10.0 L Hct 29.8 L MCV 86.0 MCH 28.9 MCHC 33.6 RDW 15.8 H Plt Count 228 MPV 8.3 Absolute Neuts (auto) 4.5 Neutrophils % 76.5 Lymphocytes % 12.6 Monocytes % 9.9 Eosinophils % 0.4 Basophils % 0.6 Nucleated RBC % 0 Sodium 137 Potassium 3.8 Chloride 99 Carbon Dioxide 30 Anion Gap 9 BUN 28 H Creatinine 2.2 H Creat Clearance w eGFR 21.70 Random Glucose 78 Lactic Acid Calcium 8.2 L Total Bilirubin 0.4 AST 16 ALT 11 L Alkaline Phosphatase 73 Creatine Kinase Troponin I Total Protein 5.9 L Albumin 2.6 L Urine Color Urine Appearance Urine pH Ur Specific [place] Urine Protein Urine Glucose (UA) Urine Ketones Urine Blood Urine Nitrite Urine Bilirubin Urine Urobilinogen Ur Leukocyte Esterase Urine WBC (Auto) Urine RBC (Auto) Ur Epithelial Cells Sinus rhythm with RBBB Echo: Pending Imaging - Results Chest X-ray: Report Reviewed (Left Pleural effusion and consolidation) EKG: Report Reviewed Problem List - Problems (1) HTN (hypertension) Code(s): I10 - ESSENTIAL (PRIMARY) HYPERTENSION (2) Dyspnea Code(s): R06.00 - DYSPNEA, UNSPECIFIED (3) CHF (congestive heart failure) Code(s): I50.9 - HEART FAILURE, UNSPECIFIED (4) Acute exacerbation of chronic obstructive airways disease Code(s): J44.1 - CHRONIC OBSTRUCTIVE PULMONARY DISEASE W (ACUTE) EXACERBATION (5) Pleural effusion Code(s): J90 - PLEURAL EFFUSION, NOT ELSEWHERE CLASSIFIED (6) Anemia Code(s): D64.9 - ANEMIA, UNSPECIFIED (7) CKD (chronic kidney disease) Code(s): N18.9 - CHRONIC KIDNEY DISEASE, UNSPECIFIED (8) H/O malignant neoplasm of breast Code(s): Z85.3 - PERSONAL HISTORY OF MALIGNANT NEOPLASM OF BREAST Assessment/Plan 1. Worsened dyspnea with left pleural effusion, ? etiology s/p thoracentesis recently with a transudative effusion, underlying COPD 2. Clinical presentation suggests acute on chronic LV failure ? diastolic +/- systolic 3. Mildly elevated troponin suggests demand ischemia due to above 4. Acute on CKD with elevated Cr 5. History of breast CA 6. Hypothyroidism PLAN: 1. Transthoracic echocardiography to assess LV/RV and valvular function 2. Furosemide 40 mg IVP and monitor response. Renal function and electrolytes are to be followed 3. Await Renal consultation 4. Pulmonary input noted 5. Steroids and bronchodilators 6. Continue Amlodipine for now 7. Repeat ECG Further plans are to follow. Recommended smoking cessation Guarded Yoel Easton MD
--- NOTE | 2018-09-24 15:44 | PN ---
Progress Note, Physician History of Present Illness: feeling good - Current Medication List Current Medications: Active Medications Albuterol Sulfate (Ventolin 0.083% Nebulizer Soln -) 1 amp NEB Q4H PRN PRN Reason: SHORT OF BREATH/WHEEZING Last Admin: 09/24/18 09:07 Dose: 1 amp Albuterol/Ipratropium (Duoneb -) 1 amp NEB RQID [facility] Last Admin: 09/24/18 11:41 Dose: 1 amp Allopurinol (Zyloprim -) 100 mg PO DAILY [facility] Last Admin: 09/24/18 10:36 Dose: 100 mg Amlodipine Besylate (Norvasc -) 10 mg PO DAILY [facility] Last Admin: 09/24/18 09:55 Dose: 10 mg Budesonide/Formoterol Fumarate (Symbicort 160/4.5mcg -) 2 puff IH BID [facility] Last Admin: 09/24/18 10:36 Dose: 2 puff Heparin Sodium (Porcine) (Heparin -) 5,000 unit SQ BID [facility] Last Admin: 09/24/18 09:55 Dose: 5,000 unit Levothyroxine Sodium (Synthroid -) 75 mcg PO ACBK [facility] Last Admin: 09/24/18 06:44 Dose: 75 mcg Methylprednisolone Sodium Succinate (Solu-Medrol -) 60 mg IVPUSH Q8H-IV [facility] Last Admin: 09/24/18 09:55 Dose: 60 mg Tiotropium [place] (Spiriva Respimat) 2 puff IH DAILY [facility] Last Admin: 09/24/18 10:35 Dose: 2 puff - Objective Vital Signs: Vital Signs Temperature 98.4 F 09/24/18 14:05 Pulse Rate 102 H 09/24/18 14:05 Respiratory Rate 22 H 09/24/18 14:05 Blood Pressure 129/62 09/24/18 14:05 O2 Sat by Pulse Oximetry (%) 83 L 09/24/18 09:00 Constitutional: Yes: No Distress HENT: Yes: Atraumatic Neck: Yes: Supple Cardiovascular: Yes: Regular Rate and Rhythm Respiratory: Yes: Rhonchi, Wheezes Gastrointestinal: Yes: Normal Bowel Sounds Extremities: Yes: WNL Edema: Yes Edema: LLE: Trace, RLE: Trace Neurological: Yes: Alert, Oriented Labs: CBC, BMP 09/24/18 05:40 09/24/18 05:40 INR, PTT INR 0.97 (0.83-1.09) 09/23/18 11:29 Problem List - Problems (1) Cough Assessment/Plan: prn cough syrup Code(s): R05 - COUGH (2) Pleural effusion Code(s): J90 - PLEURAL EFFUSION, NOT ELSEWHERE CLASSIFIED (3) Pneumonia Assessment/Plan: abx per id Code(s): J18.9 - PNEUMONIA, UNSPECIFIED ORGANISM (4) Asthma Assessment/Plan: on steroids duo nebs Code(s): J45.909 - UNSPECIFIED ASTHMA, UNCOMPLICATED (5) CKD (chronic kidney disease) Assessment/Plan: monitor Code(s): N18.9 - CHRONIC KIDNEY DISEASE, UNSPECIFIED Qualifiers: Chronic kidney disease stage: stage 3 (moderate) Qualified Code(s): N18.3 - Chronic kidney disease, stage 3 (moderate) (6) H/O malignant neoplasm of breast Code(s): Z85.3 - PERSONAL HISTORY OF MALIGNANT NEOPLASM OF BREAST
--- NOTE | 2018-09-24 16:10 | ECHO ---
Name: VIRGIL, NIKI Exam:Adult Echocardiogram Study Date: 09/24/2018 03:04 PM Age: 78 yrs Reason For Study: SOB Height: 67 in Weight: 140 lb BSA: 1.7 m2 MMode/2D Measurements & Calculations IVSd: 1.0 cm Ao root diam: 2.5 cm LVIDd: 4.7 cm ACS: 2.0 cm LVIDs: 4.4 cm LVPWd: 1.5 cm EDV(Teich): 100.0 ml LVOT diam: 2.0 cm ESV(Teich): 86.4 ml Procedure A complete two-dimensional transthoracic echocardiogram was performed (2D, M-mode, Doppler and color flow Doppler). The study was technically limited with all images being suboptimal in quality. Left Ventricle The left ventricle is grossly normal size. Left ventricular systolic function is grossly normal. Jody onal wall motion abnormalities cannot be excluded due to limited visualization. Right Ventricle The right ventricle is not well visualized. The right ventricle is grossly normal size. The right contreras tricular systolic function is grossly normal. Atria The left atrial size is normal. Right atrium not well visualized. Mitral Valve There is trace mitral regurgitation. Tricuspid Valve There is trace tricuspid regurgitation. There was insufficient TR detected to calculate RV systolic p ressure. Aortic Valve There is mild aortic valve thickening. No hemodynamically significant valvular aortic stenosis. No ao rtic regurgitation is present. Pulmonic Valve The pulmonic valve is not well visualized. Great Vessels The aortic root is normal size. Pericardium/Pleura There is no pericardial effusion. Interpretation Summary The study was technically limited with all images being suboptimal in quality. Left ventricular systolic function is grossly normal. The left ventricle is grossly normal size. The right ventricle is grossly normal size. The right ventricular systolic function is grossly normal. There is trace mitral regurgitation. There is trace tricuspid regurgitation. MD Michael Sexton 09/24/2018 04:09 PM
--- NOTE | 2018-09-24 16:20 | EKG ---
Test Reason : Blood Pressure : / mmHG Vent. Rate : 103 BPM Atrial Rate : 103 BPM P-R Int : 206 ms QRS Dur : 166 ms QT Int : 388 ms P-R-T Axes : 027 -71 007 degrees QTc Int : 508 ms SINUS TACHYCARDIA WITH PREMATURE ATRIAL COMPLEXES RIGHT BUNDLE BRANCH BLOCK LEFT ANTERIOR FASCICULAR BLOCK BIFASCICULAR BLOCK SEPTAL INFARCT , AGE UNDETERMINED ABNORMAL ECG WHEN COMPARED WITH ECG OF 23-SEP-2018 11:30, SEPTAL INFARCT IS NOW PRESENT Confirmed by PAULINO PENALOZA MD ([id number]) on 09/24/2018 4:20:21 PM Referred By: Confirmed By:PAULINO PENALOZA MD
--- NOTE | 2018-09-24 18:20 | CON.ID ---
Consult Consult Specialty:: infectious diseases Referred by:: Reason for Consultation:: sob,pna - History of Present Illness Chief Complaint: sob History of Present Illness: 78 year old female, with a significant past medical history of Breast CA (10 years ago), Dementia, COPD, Asthma, Anemia, HTN, Hypothyroidism, gout, and recent admission for left pleural effusion s/p Thoracentesis (09/03/18) with 350cc fluid drained - parapneumonic - without malignancies, who presents to the emergency department from [facility] via EMS complaining of difficulty breathing for the past couple of days with associated cough and subjective fever. The patient states her breathing is aggravated when lying in bed. The patient reports feeling like passing out while walking today but states she was assisted to a chair. Patient reports she can not lay flat secondary to increased difficulty breathing. patient still sob - History Source History Provided By: Patient Limitations to Obtaining History: No Limitations - Past Medical History Cardio/Vascular: Yes: CAD, HTN, [place] (25 yrs ago) Pulmonary: Yes: Bronchitis, COPD, O2 Dependent, Pneumonia Endocrine: Yes: Hypothyroidism - Past Surgical History Additional Surgical History: Hernia repair - Alcohol/Substance Use Hx Alcohol Use: No History of Substance Use: reports: None - Smoking History Smoking history: Unknown if ever smoked Have you smoked in the past 12 months: No Aproximately how many cigarettes per day: 5 Home Medications - Allergies Allergies/Adverse Reactions: Allergies Allergy/AdvReac Type Severity Reaction Status Date / Time cefuroxime [From Ceftin] Allergy Verified 08/30/18 16:17 orange Allergy Verified 09/26/18 09:47 orange juice Allergy Verified 09/26/18 09:48 Penicillins Allergy Verified 09/02/18 09:20 - Home Medications Home Medications: Ambulatory Orders Allopurinol [Zyloprim -] 100 mg PO DAILY 08/30/18 Calcium Carbonate/Vitamin D3 [Calcium 600+D Softgel] 2 each PO DAILY 08/30/18 Docusate Sodium [Colace] 100 mg PO BID 08/30/18 RX: Budesonide/Formeterol Fumarate [SYMBICORT 160/4.5mcg -] 2 inh PO BID RX: Levothyroxine [Synthroid -] 75 mcg PO DAILY 08/30/18 Albuterol Sulfate Inhaler - [Ventolin Hfa Inhaler -] 1 - 2 inh PO Q4H PRN #1 inhaler 09/09/18 RX: Tiotropium [place] [Spiriva Respimat] 2 puff IH DAILY #1 mist.inhal RX: Amlodipine Besylate [Norvasc -] 5 mg PO DAILY #30 tablet 09/26/18 RX: Nebivolol [Bystolic -] 2.5 mg PO DAILY #30 tab 09/26/18 RX: Prednisone 10 mg PO ASDIR #30 tablet 09/26/18 RX: Apixaban [Eliquis -] 5 mg PO BID #20 tablet 09/30/18 Family Disease History - Family Disease History Family Disease History: CA: Sister Review of Systems - Review of Systems Constitutional: reports: No Symptoms Eyes: reports: No Symptoms HENT: reports: No Symptoms Neck: reports: No Symptoms Cardiovascular: reports: No Symptoms Respiratory: reports: SOB, SOB on Exertion, Wheezing Gastrointestinal: reports: No Symptoms Genitourinary: reports: No Symptoms Musculoskeletal: reports: No Symptoms Integumentary: reports: No Symptoms Neurological: reports: No Symptoms Endocrine: reports: No Symptoms Hematology/Lymphatic: reports: No Symptoms Psychiatric: reports: No Symptoms Physical Exam Vital Signs: Vital Signs Temperature 98.4 F 09/24/18 14:05 Pulse Rate 102 H 09/24/18 14:05 Respiratory Rate 22 H 09/24/18 14:05 Blood Pressure 129/62 09/24/18 14:05 O2 Sat by Pulse Oximetry (%) 83 L 09/24/18 09:00 Constitutional: Yes: Well Nourished, Mild Distress Eyes: Yes: Conjunctiva Clear Cardiovascular: Yes: Regular Rate and Rhythm Respiratory: Yes: On Nasal O2, Poor Air Entry, Wheezes Gastrointestinal: Yes: Normal Bowel Sounds, Soft Musculoskeletal: Yes: WNL Extremities: Yes: WNL Neurological: Yes: Alert, Oriented Psychiatric: Yes: Alert, Oriented Labs: CBC, BMP 09/24/18 05:40 09/24/18 05:40 Imaging - Results Chest X-ray: Report Reviewed, Image Reviewed Assessment/Plan Problem List - Problems (1) Diastolic dysfunction Code(s): I51.9 - HEART DISEASE, UNSPECIFIED (2) Acute exacerbation of chronic obstructive airways disease Code(s): J44.1 - CHRONIC OBSTRUCTIVE PULMONARY DISEASE W (ACUTE) EXACERBATION (3) Dyspnea Code(s): R06.00 - DYSPNEA, UNSPECIFIED Qualifiers: Dyspnea type: shortness of breath Qualified Code(s): R06.02 - Shortness of breath; R06.00 - Dyspnea, unspecified; R06.01 - Orthopnea (4) HTN (hypertension) Code(s): I10 - ESSENTIAL (PRIMARY) HYPERTENSION Qualifiers: Hypertension type: essential hypertension Qualified Code(s): I10 - Essential (primary) hypertension (5) Pleural effusion Code(s): J90 - PLEURAL EFFUSION, NOT ELSEWHERE CLASSIFIED (6) CKD (chronic kidney disease) Code(s): N18.9 - CHRONIC KIDNEY DISEASE, UNSPECIFIED Qualifiers: Chronic kidney disease stage: stage 3 (moderate) Qualified Code(s): N18.3 - Chronic kidney disease, stage 3 (moderate) plan looks like mostly copd and primary disease acting up will not start and abx at this moment will watch closely
[2018-09-24] MEDS ORDERED: guaiFENesin 200 MG/10 ML 10 ML UNIT-DOSE CUPS PO PRN (18:25)
--- NOTE | 2018-09-24 18:25 | CONSULT ---
Consult Consult Specialty:: Nephrology Reason for Consultation:: CKD - History of Present Illness Chief Complaint: shortness of breath History of Present Illness: Pt is a 78 year old female with pmhx of ckd, breast cancer, pleural effusions, dementia, copd. asthma, htn anemai and hypothyroidism who presents with shortness of breath. She also complains of cough. She feels that she has thick secretions. She denies chest pain. I was called to evaluate her for CKD. She has history of CKD. She was recently discharged from the hospital. - History Source History Provided By: Patient - Past Medical History Cardio/Vascular: Yes: CAD, HTN, MS (25 yrs ago) Pulmonary: Yes: Bronchitis, COPD, O2 Dependent, Pneumonia Endocrine: Yes: Hypothyroidism - Past Surgical History Additional Surgical History: Hernia repair - Alcohol/Substance Use Hx Alcohol Use: No History of Substance Use: reports: None - Smoking History Smoking history: Unknown if ever smoked Have you smoked in the past 12 months: No Aproximately how many cigarettes per day: 5 Home Medications - Allergies Allergies/Adverse Reactions: Allergies Allergy/AdvReac Type Severity Reaction Status Date / Time [place] And Derivatives Allergy Unknown Verified 09/02/18 12:14 cefuroxime [From Ceftin] Allergy Verified 08/30/18 16:17 Penicillins Allergy Verified 09/02/18 09:20 - Home Medications Home Medications: Ambulatory Orders Allopurinol [Zyloprim -] 100 mg PO DAILY 08/30/18 Amlodipine Besylate [Norvasc -] 10 mg PO DAILY 08/30/18 Budesonide/Formeterol Fumarate [SYMBICORT 160/4.5mcg -] 2 inh PO BID 08/30/18 Calcium Carbonate/Vitamin D3 [Calcium 600+D Softgel] 2 each PO DAILY 08/30/18 Docusate Sodium [Colace] 100 mg PO BID 08/30/18 Levothyroxine [Synthroid -] 75 mcg PO DAILY 08/30/18 Albuterol Sulfate Inhaler - [Ventolin Hfa Inhaler -] 1 - 2 inh PO Q4H PRN #1 inhaler 09/09/18 Tiotropium [place] [Spiriva Respimat] 2 puff IH DAILY #1 mist.inhal 09/09/18 Family Disease History - Family Disease History Family Disease History: CA: Sister Review of Systems - Review of Systems Constitutional: reports: Malaise. denies: Chills Eyes: reports: No Symptoms HENT: reports: No Symptoms Neck: reports: No Symptoms Cardiovascular: reports: Shortness of Breath. denies: Chest Pain, Edema Respiratory: reports: Cough, SOB on Exertion Genitourinary: reports: No Symptoms Musculoskeletal: reports: No Symptoms Integumentary: reports: No Symptoms Neurological: reports: No Symptoms Endocrine: reports: No Symptoms Hematology/Lymphatic: reports: No Symptoms Psychiatric: reports: No Symptoms Physical Exam Vital Signs: Vital Signs Temperature 98.4 F 09/24/18 14:05 Pulse Rate 102 H 09/24/18 14:05 Respiratory Rate 22 H 09/24/18 14:05 Blood Pressure 129/62 09/24/18 14:05 O2 Sat by Pulse Oximetry (%) 83 L 09/24/18 09:00 Constitutional: Yes: Calm Eyes: Yes: Conjunctiva Clear HENT: Yes: Atraumatic Neck: Yes: Supple Cardiovascular: Yes: S1, S2 Respiratory: Yes: On Nasal O2, Wheezes Gastrointestinal: Yes: Normal Bowel Sounds, Soft Renal/: Yes: WNL Musculoskeletal: Yes: WNL Edema: No Neurological: Yes: Oriented Psychiatric: Yes: Oriented Labs: CBC, BMP 09/24/18 05:40 09/24/18 05:40 Laboratory Tests 09/23/18 09/23/18 09/24/18 11:27 13:24 05:40 Creatinine 2.0 H 2.2 H Urine Protein 3+ H Urine Blood Negative Imaging - Results Chest X-ray: Report Reviewed Problem List - Problems (1) Acute exacerbation of chronic obstructive airways disease Code(s): J44.1 - CHRONIC OBSTRUCTIVE PULMONARY DISEASE W (ACUTE) EXACERBATION (2) CKD (chronic kidney disease) Code(s): N18.9 - CHRONIC KIDNEY DISEASE, UNSPECIFIED Assessment/Plan Current Medications Generic Name Dose Route Start Last Admin Trade Name Freq PRN Reason Stop Dose Admin Albuterol Sulfate 1 amp 09/24/18 09:28 09/24/18 09:07 Ventolin 0.083% Nebulizer Soln - NEB 1 amp Q4H PRN Administration SHORT OF BREATH/WHEEZING Albuterol/Ipratropium 1 amp 09/24/18 12:00 09/24/18 16:14 Duoneb - NEB 1 amp RQID KASSIDY Administration Allopurinol 100 mg 09/24/18 10:00 09/24/18 10:36 Zyloprim - PO 100 mg DAILY KASSIDY Administration Amlodipine Besylate 10 mg 09/24/18 10:00 09/24/18 09:55 Norvasc - PO 10 mg DAILY KASSIDY Administration Budesonide/Formoterol Fumarate 2 puff 09/23/18 22:00 09/24/18 10:36 Symbicort 160/4.5mcg - IH 2 puff BID KASSIDY Administration Heparin Sodium (Porcine) 5,000 unit 09/23/18 22:00 09/24/18 09:55 Heparin - SQ 5,000 unit BID KASSIDY Administration Levothyroxine Sodium 75 mcg 09/24/18 07:00 09/24/18 06:44 Synthroid - PO 75 mcg ACBK KASSIDY Administration Methylprednisolone Sodium Succinate 60 mg 09/24/18 10:00 09/24/18 17:57 Solu-Medrol - IVPUSH 60 mg Q8H-IV KASSIDY Administration Tiotropium [place] 2 puff 09/24/18 10:00 09/24/18 10:35 Spiriva Respimat IH 2 puff DAILY KASSIDY Administration Impression 1. CKD 2. hypothyroidism 3. breast cancer 4. pleural effusion 5. gout 6. asthma 7. liver disease 8. copd 9. 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
[2018-09-25] MEDS: methylPREDNISolone NA SUCC 40 MG/1 ML VIAL IVPUSH SCH ×3 (01:36→18:08)
[2018-09-25] MEDS: ALBUTEROL SO4 0.083% IH SOL 2.5 MG/3 ML VIAL.NEB. NEB PRN ×2 (02:24→05:26)
[2018-09-25] MEDS: LEVOTHYROXINE NA 75 MCG TABLET (FP) PO SCH (07:00)
[2018-09-25] MEDS: ALBUTEROL SO4 2.5/IPRATROPIUM 0.5 INH SOL 3 ML VIAL.NEB. NEB SCH ×4 (07:35→20:25)
[2018-09-25 07:38] LABS: ALBUMIN 2.5 g/dl (3.4-5.0); ALK PHOS 67 U/L (45-117); ANION GAP 9 MMOL/L (8-16); BILIRUBIN,TOTAL 0.3 mg/dL (0.2-1); BLOOD UREA NITROGEN 43 mg/dL (7-18); CALCIUM 8.6 mg/dL (8.5-10.1); CHLORIDE 100 mmol/L (98-107); CO2 30 mmol/L (21-32); CREATININE 2.5 mg/dL (0.55-1.3); GLUCOSE,RANDOM 146 mg/dL (74-106); PHOSPHOROUS 4.9 mg/dL (2.5-4.9); POTASSIUM 3.7 mmol/L (3.5-5.1); SGOT/AST 13 U/L (15-37); SGPT/ALT 12 U/L (13-61); SODIUM 138 mmol/L (136-145); TOT PROT 5.9 g/dl (6.4-8.2)
[2018-09-25] MEDS: TIOTROPIUM BROMIDE 2.5 MCG (SPIRIVA) RESPIMAT INHALER IH SCH (09:43)
[2018-09-25] MEDS: HEPARIN NA (PORCINE) 5,000 UNITS/ML 1ML VIAL SQ SCH ×2 (09:43→21:25)
[2018-09-25] MEDS: ALLOPURINOL 100 MG TABLET (FP) PO SCH (09:43)
[2018-09-25] MEDS: amLODIPine BESYLATE 10 MG TABLET (FP) PO SCH (09:43)
[2018-09-25] MEDS: BUDESONIDE/FORMETEROL FUMARATE 160/4.5 mcg INHALER IH SCH ×2 (09:44→21:24)
--- NOTE | 2018-09-25 09:48 | PN ---
Progress Note (short form) - Note Progress Note: PULMONARY AWAKE/ALERT SUBJECTIVE IMPROVEMENT VSS/AFEBRILE Eyes: Yes: Conjunctiva Clear, EOM Intact HENT: Yes: Atraumatic, Normocephalic Neck: Yes: Supple, Trachea Midline Cardiovascular: Yes: Tachycardia Respiratory: Yes: Accessory Muscle Use, Cough, On Nasal O2, Rhonchi, SOB, SOB on Exertion, Tachypnea, Wheezes. No: Rales, Stridor ...Inspection: Yes: WNL ...Clubbing: No Gastrointestinal: Yes: Normal Bowel Sounds, Soft Renal/: Yes: WNL Musculoskeletal: Yes: WNL Extremities: Yes: WNL Edema: No Peripheral Pulses WNL: Yes Integumentary: Yes: WNL Neurological: Yes: WNL, Alert, Oriented ...Motor Strength: WNL Psychiatric: Yes: WNL, Alert, Oriented LABS/CXR/NOTES/MEDS REVIEWED Problem List - Problems (1) Acute exacerbation of chronic obstructive airways disease Code(s): J44.1 - CHRONIC OBSTRUCTIVE PULMONARY DISEASE W (ACUTE) EXACERBATION (2) Cough Code(s): R05 - COUGH (3) Pleural effusion Code(s): J90 - PLEURAL EFFUSION, NOT ELSEWHERE CLASSIFIED (4) Allergy to multiple antibiotics Code(s): Z88.1 - ALLERGY STATUS TO OTHER ANTIBIOTIC AGENTS STATUS (5) Asthma Code(s): J45.909 - UNSPECIFIED ASTHMA, UNCOMPLICATED (6) CKD (chronic kidney disease) Code(s): N18.9 - CHRONIC KIDNEY DISEASE, UNSPECIFIED (7) Gout Code(s): M10.9 - GOUT, UNSPECIFIED (8) H/O malignant neoplasm of breast Code(s): Z85.3 - PERSONAL HISTORY OF MALIGNANT NEOPLASM OF BREAST Medrol BD TX standing in PRN O2 as needed Would monitor off ABX for now Would defer repeat repeat thoracentesis for now Will need outpatient imaging followup No smoking discussed Will follow Mike RODRIGUES MD
--- NOTE | 2018-09-25 11:05 | PN ---
Progress Note, Physician History of Present Illness: Dyspnea improving with BD and steroid therapies. - Current Medication List Current Medications: Active Medications Albuterol Sulfate (Ventolin 0.083% Nebulizer Soln -) 1 amp NEB Q4H PRN PRN Reason: SHORT OF BREATH/WHEEZING Last Admin: 09/25/18 05:26 Dose: 1 amp Albuterol/Ipratropium (Duoneb -) 1 amp NEB RQID [facility] Last Admin: 09/25/18 07:35 Dose: 1 amp Allopurinol (Zyloprim -) 100 mg PO DAILY [facility] Last Admin: 09/25/18 09:43 Dose: 100 mg Amlodipine Besylate (Norvasc -) 10 mg PO DAILY [facility] Last Admin: 09/25/18 09:43 Dose: 10 mg Budesonide/Formoterol Fumarate (Symbicort 160/4.5mcg -) 2 puff IH BID [facility] Last Admin: 09/25/18 09:44 Dose: 2 puff Guaifenesin (Robitussin -) 10 ml PO Q6H PRN PRN Reason: COUGH Heparin Sodium (Porcine) (Heparin -) 5,000 unit SQ BID [facility] Last Admin: 09/25/18 09:43 Dose: 5,000 unit Levothyroxine Sodium (Synthroid -) 75 mcg PO ACBK [facility] Last Admin: 09/25/18 07:00 Dose: 75 mcg Methylprednisolone Sodium Succinate (Solu-Medrol -) 60 mg IVPUSH Q8H-IV [facility] Last Admin: 09/25/18 09:43 Dose: 60 mg Tiotropium [place] (Spiriva Respimat) 2 puff IH DAILY [facility] Last Admin: 09/25/18 09:43 Dose: 2 puff - Objective Vital Signs: Vital Signs Temperature 97.6 F 09/25/18 06:00 Pulse Rate 102 H 09/25/18 06:00 Respiratory Rate 20 09/25/18 06:00 Blood Pressure 126/62 09/25/18 06:00 O2 Sat by Pulse Oximetry (%) 90 L 09/24/18 21:00 Constitutional: Yes: No Distress, Calm Neck: Yes: Supple Cardiovascular: Yes: Regular Rate and Rhythm Respiratory: Yes: Regular, Diminished, On Nasal O2 Gastrointestinal: Yes: Normal Bowel Sounds, Soft Edema: No Labs: CBC, BMP 09/24/18 05:40 09/25/18 05:30 INR, PTT INR 0.97 (0.83-1.09) 09/23/18 11:29 - ....Imaging Chest X-ray: Report Reviewed (LLL consolidation and left effusion) EKG: Report Reviewed (ST @ 103 RBBB) Problem List - Problems (1) Diastolic dysfunction Code(s): I51.9 - HEART DISEASE, UNSPECIFIED (2) Acute exacerbation of chronic obstructive airways disease Code(s): J44.1 - CHRONIC OBSTRUCTIVE PULMONARY DISEASE W (ACUTE) EXACERBATION (3) Dyspnea Code(s): R06.00 - DYSPNEA, UNSPECIFIED Qualifiers: Dyspnea type: shortness of breath Qualified Code(s): R06.02 - Shortness of breath; R06.00 - Dyspnea, unspecified; R06.01 - Orthopnea (4) HTN (hypertension) Code(s): I10 - ESSENTIAL (PRIMARY) HYPERTENSION Qualifiers: Hypertension type: essential hypertension Qualified Code(s): I10 - Essential (primary) hypertension (5) Pleural effusion Code(s): J90 - PLEURAL EFFUSION, NOT ELSEWHERE CLASSIFIED (6) CKD (chronic kidney disease) Code(s): N18.9 - CHRONIC KIDNEY DISEASE, UNSPECIFIED Qualifiers: Chronic kidney disease stage: stage 3 (moderate) Qualified Code(s): N18.3 - Chronic kidney disease, stage 3 (moderate) Assessment/Plan 09/24/2018 Echo: Normal LV and RV size and fxn, tr MR, TR 1. AE COPD, left pleural effusion 2. Diastolic dysfunction 3. Mildly elevated troponin suggests demand ischemia due to above 4. Acute on CKD 5. History of breast CA 6. Hypothyroidism PLAN: 1. IV Steroids, bronchodilators, O2 as needed 2. Observe off diuretics pending recovery 3. Continue Amlodipine 10 qd and DVT prophylaxis
--- NOTE | 2018-09-25 12:02 | PN ---
Progress Note, Physician - Current Medication List Current Medications: Active Medications Albuterol Sulfate (Ventolin 0.083% Nebulizer Soln -) 1 amp NEB Q4H PRN PRN Reason: SHORT OF BREATH/WHEEZING Last Admin: 09/25/18 05:26 Dose: 1 amp Albuterol/Ipratropium (Duoneb -) 1 amp NEB RQID [facility] Last Admin: 09/25/18 11:42 Dose: 1 amp Allopurinol (Zyloprim -) 100 mg PO DAILY [facility] Last Admin: 09/25/18 09:43 Dose: 100 mg Amlodipine Besylate (Norvasc -) 10 mg PO DAILY [facility] Last Admin: 09/25/18 09:43 Dose: 10 mg Budesonide/Formoterol Fumarate (Symbicort 160/4.5mcg -) 2 puff IH BID [facility] Last Admin: 09/25/18 09:44 Dose: 2 puff Guaifenesin (Robitussin -) 10 ml PO Q6H PRN PRN Reason: COUGH Heparin Sodium (Porcine) (Heparin -) 5,000 unit SQ BID [facility] Last Admin: 09/25/18 09:43 Dose: 5,000 unit Levothyroxine Sodium (Synthroid -) 75 mcg PO ACBK [facility] Last Admin: 09/25/18 07:00 Dose: 75 mcg Methylprednisolone Sodium Succinate (Solu-Medrol -) 60 mg IVPUSH Q8H-IV [facility] Last Admin: 09/25/18 09:43 Dose: 60 mg Tiotropium [place] (Spiriva Respimat) 2 puff IH DAILY [facility] Last Admin: 09/25/18 09:43 Dose: 2 puff - Objective Vital Signs: Vital Signs Temperature 97.6 F 09/25/18 06:00 Pulse Rate 102 H 09/25/18 06:00 Respiratory Rate 20 09/25/18 06:00 Blood Pressure 126/62 09/25/18 06:00 O2 Sat by Pulse Oximetry (%) 90 L 09/24/18 21:00 Labs: CBC, BMP 09/24/18 05:40 09/25/18 05:30 INR, PTT INR 0.97 (0.83-1.09) 09/23/18 11:29 Problem List - Problems (1) Cough Code(s): R05 - COUGH (2) Pleural effusion Code(s): J90 - PLEURAL EFFUSION, NOT ELSEWHERE CLASSIFIED (3) Pneumonia Code(s): J18.9 - PNEUMONIA, UNSPECIFIED ORGANISM (4) Asthma Code(s): J45.909 - UNSPECIFIED ASTHMA, UNCOMPLICATED (5) CKD (chronic kidney disease) Code(s): N18.9 - CHRONIC KIDNEY DISEASE, UNSPECIFIED Qualifiers: Chronic kidney disease stage: stage 3 (moderate) Qualified Code(s): N18.3 - Chronic kidney disease, stage 3 (moderate) (6) H/O malignant neoplasm of breast Code(s): Z85.3 - PERSONAL HISTORY OF MALIGNANT NEOPLASM OF BREAST (7) Acute exacerbation of chronic obstructive airways disease Code(s): J44.1 - CHRONIC OBSTRUCTIVE PULMONARY DISEASE W (ACUTE) EXACERBATION (8) CHF (congestive heart failure) Code(s): I50.9 - HEART FAILURE, UNSPECIFIED (9) HTN (hypertension) Code(s): I10 - ESSENTIAL (PRIMARY) HYPERTENSION Qualifiers: Hypertension type: essential hypertension Qualified Code(s): I10 - Essential (primary) hypertension (10) Gout Code(s): M10.9 - GOUT, UNSPECIFIED
[2018-09-25 12:10] LABS: RATIO URIN PROTEIN/URIN CREAT 1.18 MG/DL
--- NOTE | 2018-09-25 12:27 | PN ---
Progress Note, Physician History of Present Illness: Pt seen and examined at bedside. She is awake and alert. She feels that her breathing is improved. - Current Medication List Current Medications: Active Medications Albuterol Sulfate (Ventolin 0.083% Nebulizer Soln -) 1 amp NEB Q4H PRN PRN Reason: SHORT OF BREATH/WHEEZING Last Admin: 09/25/18 05:26 Dose: 1 amp Albuterol/Ipratropium (Duoneb -) 1 amp NEB RQID [facility] Last Admin: 09/25/18 11:42 Dose: 1 amp Allopurinol (Zyloprim -) 100 mg PO DAILY [facility] Last Admin: 09/25/18 09:43 Dose: 100 mg Amlodipine Besylate (Norvasc -) 10 mg PO DAILY [facility] Last Admin: 09/25/18 09:43 Dose: 10 mg Budesonide/Formoterol Fumarate (Symbicort 160/4.5mcg -) 2 puff IH BID [facility] Last Admin: 09/25/18 09:44 Dose: 2 puff Guaifenesin (Robitussin -) 10 ml PO Q6H PRN PRN Reason: COUGH Heparin Sodium (Porcine) (Heparin -) 5,000 unit SQ BID [facility] Last Admin: 09/25/18 09:43 Dose: 5,000 unit Levothyroxine Sodium (Synthroid -) 75 mcg PO ACBK [facility] Last Admin: 09/25/18 07:00 Dose: 75 mcg Methylprednisolone Sodium Succinate (Solu-Medrol -) 60 mg IVPUSH Q8H-IV [facility] Last Admin: 09/25/18 09:43 Dose: 60 mg Tiotropium [place] (Spiriva Respimat) 2 puff IH DAILY [facility] Last Admin: 09/25/18 09:43 Dose: 2 puff - Objective Vital Signs: Vital Signs Temperature 98.1 F 09/25/18 10:00 Pulse Rate 98 H 09/25/18 10:00 Respiratory Rate 20 09/25/18 10:00 Blood Pressure 141/71 09/25/18 10:00 O2 Sat by Pulse Oximetry (%) 90 L 09/25/18 09:00 Constitutional: Yes: Calm Eyes: Yes: Conjunctiva Clear HENT: Yes: Atraumatic Neck: Yes: Supple Cardiovascular: Yes: S1, S2 Respiratory: Yes: On Nasal O2, Wheezes Gastrointestinal: Yes: Soft Genitourinary: Yes: WNL Musculoskeletal: Yes: WNL Edema: No Neurological: Yes: Oriented Labs: CBC, BMP 09/24/18 05:40 09/25/18 05:30 INR, PTT INR 0.97 (0.83-1.09) 09/23/18 11:29 Problem List - Problems (1) Acute exacerbation of chronic obstructive airways disease Code(s): J44.1 - CHRONIC OBSTRUCTIVE PULMONARY DISEASE W (ACUTE) EXACERBATION (2) CKD (chronic kidney disease) Code(s): N18.9 - CHRONIC KIDNEY DISEASE, UNSPECIFIED Qualifiers: Chronic kidney disease stage: stage 3 (moderate) Qualified Code(s): N18.3 - Chronic kidney disease, stage 3 (moderate) Assessment/Plan Current Medications Generic Name Dose Route Start Last Admin Trade Name Freq PRN Reason Stop Dose Admin Albuterol Sulfate 1 amp 09/24/18 09:28 09/25/18 05:26 Ventolin 0.083% Nebulizer Soln - NEB 1 amp Q4H PRN Administration SHORT OF BREATH/WHEEZING Albuterol/Ipratropium 1 amp 09/24/18 12:00 09/25/18 11:42 Duoneb - NEB 1 amp RQID KASSIDY Administration Allopurinol 100 mg 09/24/18 10:00 09/25/18 09:43 Zyloprim - PO 100 mg DAILY KASSIDY Administration Amlodipine Besylate 10 mg 09/24/18 10:00 09/25/18 09:43 Norvasc - PO 10 mg DAILY KASSIDY Administration Budesonide/Formoterol Fumarate 2 puff 09/23/18 22:00 09/25/18 09:44 Symbicort 160/4.5mcg - IH 2 puff BID KASSIDY Administration Guaifenesin 10 ml 09/24/18 18:25 Robitussin - PO Q6H PRN COUGH Heparin Sodium (Porcine) 5,000 unit 09/23/18 22:00 09/25/18 09:43 Heparin - SQ 5,000 unit BID KASSIDY Administration Levothyroxine Sodium 75 mcg 09/24/18 07:00 09/25/18 07:00 Synthroid - PO 75 mcg ACBK KASSIDY Administration Methylprednisolone Sodium Succinate 60 mg 09/24/18 10:00 09/25/18 09:43 Solu-Medrol - IVPUSH 60 mg Q8H-IV KASSIDY Administration Tiotropium [place] 2 puff 09/24/18 10:00 09/25/18 09:43 Spiriva Respimat IH 2 puff DAILY KASSIDY Administration Impression 1. CKD 2. hypothyroidism 3. breast cancer 4. pleural effusion 5. gout 6. asthma 7. liver disease 8. copd 9. asthma Plan - cont steroids - no lasix at this time - repeat labs in am - renal function is slightly worse - will need renal workup as outpt - follow urine prt to greens planter ratio - avoid nsaids
--- NOTE | 2018-09-25 12:35 | PN ---
Progress Note, Physician History of Present Illness: feeling much better breathing better - Current Medication List Current Medications: Active Medications Albuterol Sulfate (Ventolin 0.083% Nebulizer Soln -) 1 amp NEB Q4H PRN PRN Reason: SHORT OF BREATH/WHEEZING Last Admin: 09/25/18 05:26 Dose: 1 amp Albuterol/Ipratropium (Duoneb -) 1 amp NEB RQID [facility] Last Admin: 09/25/18 11:42 Dose: 1 amp Allopurinol (Zyloprim -) 100 mg PO DAILY [facility] Last Admin: 09/25/18 09:43 Dose: 100 mg Amlodipine Besylate (Norvasc -) 10 mg PO DAILY [facility] Last Admin: 09/25/18 09:43 Dose: 10 mg Budesonide/Formoterol Fumarate (Symbicort 160/4.5mcg -) 2 puff IH BID [facility] Last Admin: 09/25/18 09:44 Dose: 2 puff Guaifenesin (Robitussin -) 10 ml PO Q6H PRN PRN Reason: COUGH Heparin Sodium (Porcine) (Heparin -) 5,000 unit SQ BID [facility] Last Admin: 09/25/18 09:43 Dose: 5,000 unit Levothyroxine Sodium (Synthroid -) 75 mcg PO ACBK [facility] Last Admin: 09/25/18 07:00 Dose: 75 mcg Methylprednisolone Sodium Succinate (Solu-Medrol -) 60 mg IVPUSH Q8H-IV [facility] Last Admin: 09/25/18 09:43 Dose: 60 mg Tiotropium [place] (Spiriva Respimat) 2 puff IH DAILY [facility] Last Admin: 09/25/18 09:43 Dose: 2 puff - Objective Vital Signs: Vital Signs Temperature 98.1 F 09/25/18 10:00 Pulse Rate 98 H 09/25/18 10:00 Respiratory Rate 20 09/25/18 10:00 Blood Pressure 141/71 09/25/18 10:00 O2 Sat by Pulse Oximetry (%) 90 L 09/25/18 09:00 Constitutional: Yes: No Distress, Calm Cardiovascular: Yes: Regular Rate and Rhythm Respiratory: Yes: On Nasal O2, Poor Air Entry, Other Gastrointestinal: Yes: Normal Bowel Sounds, Soft Musculoskeletal: Yes: WNL Extremities: Yes: WNL Neurological: Yes: Alert, Oriented Psychiatric: Yes: Alert, Oriented Labs: CBC, BMP 09/24/18 05:40 09/25/18 05:30 INR, PTT INR 0.97 (0.83-1.09) 09/23/18 11:29 Assessment/Plan Problem List - Problems (1) Diastolic dysfunction Code(s): I51.9 - HEART DISEASE, UNSPECIFIED (2) Acute exacerbation of chronic obstructive airways disease Code(s): J44.1 - CHRONIC OBSTRUCTIVE PULMONARY DISEASE W (ACUTE) EXACERBATION (3) Dyspnea Code(s): R06.00 - DYSPNEA, UNSPECIFIED Qualifiers: Dyspnea type: shortness of breath Qualified Code(s): R06.02 - Shortness of breath; R06.00 - Dyspnea, unspecified; R06.01 - Orthopnea (4) HTN (hypertension) Code(s): I10 - ESSENTIAL (PRIMARY) HYPERTENSION Qualifiers: Hypertension type: essential hypertension Qualified Code(s): I10 - Essential (primary) hypertension (5) Pleural effusion Code(s): J90 - PLEURAL EFFUSION, NOT ELSEWHERE CLASSIFIED (6) CKD (chronic kidney disease) Code(s): N18.9 - CHRONIC KIDNEY DISEASE, UNSPECIFIED Qualifiers: Chronic kidney disease stage: stage 3 (moderate) Qualified Code(s): N18.3 - Chronic kidney disease, stage 3 (moderate) plan continue to monitor off of abx incentive mary resp support rest as per the team
--- NOTE | 2018-09-25 22:56 | PN ---
Progress Note, Physician - Current Medication List Current Medications: Active Medications Albuterol Sulfate (Ventolin 0.083% Nebulizer Soln -) 1 amp NEB Q4H PRN PRN Reason: SHORT OF BREATH/WHEEZING Last Admin: 09/25/18 05:26 Dose: 1 amp Albuterol/Ipratropium (Duoneb -) 1 amp NEB RQID [facility] Last Admin: 09/25/18 20:25 Dose: 1 amp Allopurinol (Zyloprim -) 100 mg PO DAILY [facility] Last Admin: 09/25/18 09:43 Dose: 100 mg Amlodipine Besylate (Norvasc -) 10 mg PO DAILY [facility] Last Admin: 09/25/18 09:43 Dose: 10 mg Budesonide/Formoterol Fumarate (Symbicort 160/4.5mcg -) 2 puff IH BID [facility] Last Admin: 09/25/18 21:24 Dose: 2 puff Guaifenesin (Robitussin -) 10 ml PO Q6H PRN PRN Reason: COUGH Heparin Sodium (Porcine) (Heparin -) 5,000 unit SQ BID [facility] Last Admin: 09/25/18 21:25 Dose: 5,000 unit Levothyroxine Sodium (Synthroid -) 75 mcg PO ACBK [facility] Last Admin: 09/25/18 07:00 Dose: 75 mcg Methylprednisolone Sodium Succinate (Solu-Medrol -) 60 mg IVPUSH Q8H-IV [facility] Last Admin: 09/25/18 18:08 Dose: 60 mg Tiotropium [place] (Spiriva Respimat) 2 puff IH DAILY [facility] Last Admin: 09/25/18 09:43 Dose: 2 puff - Objective Vital Signs: Vital Signs Temperature 98.0 F 09/25/18 17:00 Pulse Rate 92 H 09/25/18 17:00 Respiratory Rate 18 09/25/18 17:00 Blood Pressure 127/64 09/25/18 17:00 O2 Sat by Pulse Oximetry (%) 90 L 09/25/18 09:00 Labs: CBC, BMP 09/24/18 05:40 09/25/18 05:30 INR, PTT INR 0.97 (0.83-1.09) 09/23/18 11:29
[2018-09-26] MEDS: methylPREDNISolone NA SUCC 40 MG/1 ML VIAL IVPUSH SCH ×2 (02:45→09:45)
[2018-09-26] MEDS: ALBUTEROL SO4 0.083% IH SOL 2.5 MG/3 ML VIAL.NEB. NEB PRN (03:55)
[2018-09-26] MEDS: ALBUTEROL SO4 2.5/IPRATROPIUM 0.5 INH SOL 3 ML VIAL.NEB. NEB SCH ×4 (07:37→20:48)
[2018-09-26] MEDS: LEVOTHYROXINE NA 75 MCG TABLET (FP) PO SCH (07:40)
--- NOTE | 2018-09-26 08:42 | PN ---
Progress Note (short form) - Note Progress Note: Chief Complaint: Events noted, notes reviewed, reports persistent dyspnea but improved, denies orthopnea or PND, denies any chest pain History of Present Illness: Seen and examined on telemetry. Events noted, notes reviewed, reports persistent dyspnea but improved, denies orthopnea or PND, denies any chest pain Echocardiography dated 09/24/2018 normal LV and RV size and function, trace MR and TR Current Medications: Current Medications Albuterol Sulfate (Ventolin 0.083% Nebulizer Soln -) 1 amp NEB Q4H PRN PRN Reason: SHORT OF BREATH/WHEEZING Last Admin: 09/26/18 03:55 Dose: 1 amp Albuterol/Ipratropium (Duoneb -) 1 amp NEB RQID [facility] Last Admin: 09/26/18 07:37 Dose: 1 amp Allopurinol (Zyloprim -) 100 mg PO DAILY [facility] Last Admin: 09/25/18 09:43 Dose: 100 mg Amlodipine Besylate (Norvasc -) 10 mg PO DAILY [facility] Last Admin: 09/25/18 09:43 Dose: 10 mg Budesonide/Formoterol Fumarate (Symbicort 160/4.5mcg -) 2 puff IH BID [facility] Last Admin: 09/25/18 21:24 Dose: 2 puff Guaifenesin (Robitussin -) 10 ml PO Q6H PRN PRN Reason: COUGH Heparin Sodium (Porcine) (Heparin -) 5,000 unit SQ BID [facility] Last Admin: 09/25/18 21:25 Dose: 5,000 unit Levothyroxine Sodium (Synthroid -) 75 mcg PO ACBK [facility] Last Admin: 09/26/18 07:40 Dose: 75 mcg Methylprednisolone Sodium Succinate (Solu-Medrol -) 60 mg IVPUSH Q8H-IV [facility] Last Admin: 09/26/18 02:45 Dose: 60 mg Tiotropium [place] (Spiriva Respimat) 2 puff IH DAILY [facility] Last Admin: 09/25/18 09:43 Dose: 2 puff Review of Systems Constitutional: denies Chills or Fever Respiratory: reports Cough non productive of Sputum Production Cardiovascular: As noted above Gastrointestinal: denies Nausea, Vomiting, Diarrhea, Constipation or Abdominal Pain Genitourinary: denies Frequency or Urgency Musculoskeletal: No symptoms reported - Objective Vital Signs: Last Vital Signs Temp Pulse Resp BP Pulse Ox 97.4 F L 98 H 20 130/61 91 L 09/26/18 05:47 09/26/18 05:47 09/26/18 08:23 09/26/18 05:47 09/26/18 08:23 Intake & Output 09/23/18 09/24/18 09/25/18 09/26/18 23:59 23:59 23:59 23:59 Intake Total 123 865 2799 20 Balance 808 200 8928 20 Weight 140 lb 0.002 oz Neck: Supple Negative JVD No bruit Respiratory: Diminished breath sounds at the bases Bilateral Scattered Rhonchi Cardiovascular: S1, S2 Regular Rate and Rhythm Gastrointestinal: Soft Benign Normal Bowel Sounds Ext: Edema Labs: CBC, BMP 09/24/18 05:40 09/25/18 05:30 Hepatic Panel Total Bilirubin 0.3 mg/dL (0.2-1) 09/25/18 05:30 AST 13 U/L (15-37) L 09/25/18 05:30 ALT 12 U/L (13-61) L 09/25/18 05:30 Alkaline Phosphatase 67 U/L (45-117) 09/25/18 05:30 Albumin 2.5 g/dl (3.4-5.0) L 09/25/18 05:30 Assessment/Plan ASSESSMENT: 1. Acute exacerbation of COPD, resolving 2. Diastolic left ventricular dysfunction with clinical class I NYHA classification LV failure, resolving 3. CAD with demand ischemia related to above 4. hypothyroidism 5. Acute on CKD 6. History of breast CA PLAN: 1. Continue IV Steroids, bronchodilators,supplemental O2 as per the primary team 2. Continue to observe off of diuretics pending renal function recovery 3. Continue Amlodipine decrease dosage and 4. Attempt B-Blockers with caution/Bystolic Bob Moody MD
[2018-09-26] MEDS: ALLOPURINOL 100 MG TABLET (FP) PO SCH (09:45)
[2018-09-26] MEDS: HEPARIN NA (PORCINE) 5,000 UNITS/ML 1ML VIAL SQ SCH ×2 (09:45→21:20)
[2018-09-26] MEDS: amLODIPine BESYLATE 10 MG TABLET (FP) PO SCH (09:45)
[2018-09-26] MEDS: BUDESONIDE/FORMETEROL FUMARATE 160/4.5 mcg INHALER IH SCH ×2 (09:46→21:20)
[2018-09-26] MEDS: TIOTROPIUM BROMIDE 2.5 MCG (SPIRIVA) RESPIMAT INHALER IH SCH (09:46)
--- NOTE | 2018-09-26 10:27 | PN ---
Progress Note (short form) - Note Progress Note: PULMONARY AWAKE/ALERT SUBJECTIVE IMPROVEMENT VSS/AFEBRILE Eyes: Yes: Conjunctiva Clear, EOM Intact HENT: Yes: Atraumatic, Normocephalic Neck: Yes: Supple, Trachea Midline Cardiovascular: Yes: Tachycardia Respiratory: Yes: Accessory Muscle Use, Cough, On Nasal O2, Rhonchi, SOB, SOB on Exertion, Tachypnea, Wheezes. No: Rales, Stridor ...Inspection: Yes: WNL ...Clubbing: No Gastrointestinal: Yes: Normal Bowel Sounds, Soft Renal/: Yes: WNL Musculoskeletal: Yes: WNL Extremities: Yes: WNL Edema: No Peripheral Pulses WNL: Yes Integumentary: Yes: WNL Neurological: Yes: WNL, Alert, Oriented ...Motor Strength: WNL Psychiatric: Yes: WNL, Alert, Oriented LABS/CXR/NOTES/MEDS REVIEWED Problem List - Problems (1) Acute exacerbation of chronic obstructive airways disease Code(s): J44.1 - CHRONIC OBSTRUCTIVE PULMONARY DISEASE W (ACUTE) EXACERBATION (2) Cough Code(s): R05 - COUGH (3) Pleural effusion Code(s): J90 - PLEURAL EFFUSION, NOT ELSEWHERE CLASSIFIED (4) Allergy to multiple antibiotics Code(s): Z88.1 - ALLERGY STATUS TO OTHER ANTIBIOTIC AGENTS STATUS (5) Asthma Code(s): J45.909 - UNSPECIFIED ASTHMA, UNCOMPLICATED (6) CKD (chronic kidney disease) Code(s): N18.9 - CHRONIC KIDNEY DISEASE, UNSPECIFIED (7) Gout Code(s): M10.9 - GOUT, UNSPECIFIED (8) H/O malignant neoplasm of breast Code(s): Z85.3 - PERSONAL HISTORY OF MALIGNANT NEOPLASM OF BREAST Medrol changed to prednisone BD TX standing in PRN O2 as needed/check spo2 r/a post amb Will need outpatient imaging followup No smoking discussed Will follow discharge planning Mike RODRIGUES MD
[2018-09-26] MEDS: predniSONE 20 MG TABLET (UD) PO SCH (10:37)
[2018-09-26] MEDS: NEBIVOLOL 2.5 MG TABLET (FP) PO SCH (11:34)
--- NOTE | 2018-09-26 13:51 | PN ---
Progress Note, Physician History of Present Illness: stable doing well no new issues - Current Medication List Current Medications: Active Medications Albuterol Sulfate (Ventolin 0.083% Nebulizer Soln -) 1 amp NEB Q4H PRN PRN Reason: SHORT OF BREATH/WHEEZING Last Admin: 09/26/18 03:55 Dose: 1 amp Albuterol/Ipratropium (Duoneb -) 1 amp NEB RQID [facility] Last Admin: 09/26/18 11:29 Dose: 1 amp Allopurinol (Zyloprim -) 100 mg PO DAILY [facility] Last Admin: 09/26/18 09:45 Dose: 100 mg Amlodipine Besylate (Norvasc -) 5 mg PO DAILY [facility] Budesonide/Formoterol Fumarate (Symbicort 160/4.5mcg -) 2 puff IH BID [facility] Last Admin: 09/26/18 09:46 Dose: 2 puff Guaifenesin (Robitussin -) 10 ml PO Q6H PRN PRN Reason: COUGH Last Admin: 09/26/18 09:45 Dose: 10 ml Heparin Sodium (Porcine) (Heparin -) 5,000 unit SQ BID [facility] Last Admin: 09/26/18 09:45 Dose: 5,000 unit Levothyroxine Sodium (Synthroid -) 75 mcg PO ACBK [facility] Last Admin: 09/26/18 07:40 Dose: 75 mcg Nebivolol (Bystolic -) 2.5 mg PO DAILY [facility] Last Admin: 09/26/18 11:34 Dose: 2.5 mg Prednisone (Deltasone -) 40 mg PO DAILY [facility] Last Admin: 09/26/18 10:37 Dose: Not Given Tiotropium [place] (Spiriva Respimat) 2 puff IH DAILY [facility] Last Admin: 09/26/18 09:46 Dose: 2 puff - Objective Vital Signs: Vital Signs Temperature 98.1 F 09/26/18 10:25 Pulse Rate 100 H 09/26/18 11:52 Respiratory Rate 22 H 09/26/18 10:25 Blood Pressure 120/75 09/26/18 10:25 O2 Sat by Pulse Oximetry (%) 88 L 09/26/18 11:52 Constitutional: Yes: No Distress, Calm Cardiovascular: Yes: Regular Rate and Rhythm Respiratory: Yes: Regular, On Nasal O2, Poor Air Entry Gastrointestinal: Yes: Normal Bowel Sounds, Soft Musculoskeletal: Yes: WNL Extremities: Yes: WNL Neurological: Yes: Alert, Oriented Psychiatric: Yes: Alert, Oriented Labs: CBC, BMP 09/24/18 05:40 09/25/18 05:30 INR, PTT INR 0.97 (0.83-1.09) 09/23/18 11:29 Assessment/Plan Problem List - Problems (1) Diastolic dysfunction Code(s): I51.9 - HEART DISEASE, UNSPECIFIED (2) Acute exacerbation of chronic obstructive airways disease Code(s): J44.1 - CHRONIC OBSTRUCTIVE PULMONARY DISEASE W (ACUTE) EXACERBATION (3) Dyspnea Code(s): R06.00 - DYSPNEA, UNSPECIFIED Qualifiers: Dyspnea type: shortness of breath Qualified Code(s): R06.02 - Shortness of breath; R06.00 - Dyspnea, unspecified; R06.01 - Orthopnea (4) HTN (hypertension) Code(s): I10 - ESSENTIAL (PRIMARY) HYPERTENSION Qualifiers: Hypertension type: essential hypertension Qualified Code(s): I10 - Essential (primary) hypertension (5) Pleural effusion Code(s): J90 - PLEURAL EFFUSION, NOT ELSEWHERE CLASSIFIED (6) CKD (chronic kidney disease) Code(s): N18.9 - CHRONIC KIDNEY DISEASE, UNSPECIFIED Qualifiers: Chronic kidney disease stage: stage 3 (moderate) Qualified Code(s): N18.3 - Chronic kidney disease, stage 3 (moderate) plan continue to monitor incentive mary resp support rest as per the team
--- NOTE | 2018-09-26 14:56 | DS ---
Physical Examination Vital Signs: Vital Signs Temperature 97.7 F 09/26/18 14:00 Pulse Rate 91 H 09/26/18 14:00 Respiratory Rate 20 09/26/18 14:00 Blood Pressure 127/76 09/26/18 14:00 O2 Sat by Pulse Oximetry (%) 88 L 09/26/18 11:52 Constitutional: Yes: No Distress HENT: Yes: Atraumatic Neck: Yes: Supple Cardiovascular: Yes: Regular Rate and Rhythm Respiratory: Yes: CTA Bilaterally Gastrointestinal: Yes: Normal Bowel Sounds Extremities: Yes: WNL Edema: No Neurological: Yes: Alert, Oriented Labs: CBC, BMP 09/24/18 05:40 09/25/18 05:30 Discharge Summary Reason For Visit: PNEUMONIA,CHF Current Active Problems Acute exacerbation of chronic obstructive airways disease (Acute) CHF (congestive heart failure) (Acute) Cough (Acute) Diastolic dysfunction (Acute) Dyspnea (Acute) HTN (hypertension) (Acute) Pleural effusion (Acute) Pneumonia (Acute) - Instructions Referrals: Isra Britton MD [Primary Care Provider] - - Home Medications Comprehensive Discharge Medication List: Ambulatory Orders Allopurinol [Zyloprim -] 100 mg PO DAILY 08/30/18 Budesonide/Formeterol Fumarate [SYMBICORT 160/4.5mcg -] 2 inh PO BID 08/30/18 Calcium Carbonate/Vitamin D3 [Calcium 600+D Softgel] 2 each PO DAILY 08/30/18 Docusate Sodium [Colace] 100 mg PO BID 08/30/18 Levothyroxine [Synthroid -] 75 mcg PO DAILY 08/30/18 Albuterol Sulfate Inhaler - [Ventolin Hfa Inhaler -] 1 - 2 inh PO Q4H PRN #1 inhaler 09/09/18 Tiotropium [place] [Spiriva Respimat] 2 puff IH DAILY #1 mist.inhal 09/09/18 Amlodipine Besylate [Norvasc -] 10 mg PO DAILY #30 tablet 09/26/18 Nebivolol [Bystolic -] 2.5 mg PO DAILY #30 tab 09/26/18 Prednisone 10 mg PO ASDIR #30 tablet 09/26/18 [facility]
--- NOTE | 2018-09-26 14:57 | PN ---
Progress Note, Physician History of Present Illness: feeling good - Current Medication List Current Medications: Active Medications Albuterol Sulfate (Ventolin 0.083% Nebulizer Soln -) 1 amp NEB Q4H PRN PRN Reason: SHORT OF BREATH/WHEEZING Last Admin: 09/26/18 03:55 Dose: 1 amp Albuterol/Ipratropium (Duoneb -) 1 amp NEB RQID [facility] Last Admin: 09/26/18 11:29 Dose: 1 amp Allopurinol (Zyloprim -) 100 mg PO DAILY [facility] Last Admin: 09/26/18 09:45 Dose: 100 mg Amlodipine Besylate (Norvasc -) 5 mg PO DAILY [facility] Budesonide/Formoterol Fumarate (Symbicort 160/4.5mcg -) 2 puff IH BID [facility] Last Admin: 09/26/18 09:46 Dose: 2 puff Guaifenesin (Robitussin -) 10 ml PO Q6H PRN PRN Reason: COUGH Last Admin: 09/26/18 09:45 Dose: 10 ml Heparin Sodium (Porcine) (Heparin -) 5,000 unit SQ BID [facility] Last Admin: 09/26/18 09:45 Dose: 5,000 unit Levothyroxine Sodium (Synthroid -) 75 mcg PO ACBK [facility] Last Admin: 09/26/18 07:40 Dose: 75 mcg Nebivolol (Bystolic -) 2.5 mg PO DAILY [facility] Last Admin: 09/26/18 11:34 Dose: 2.5 mg Prednisone (Deltasone -) 40 mg PO DAILY [facility] Last Admin: 09/26/18 10:37 Dose: Not Given Tiotropium [place] (Spiriva Respimat) 2 puff IH DAILY [facility] Last Admin: 09/26/18 09:46 Dose: 2 puff - Objective Vital Signs: Vital Signs Temperature 97.7 F 09/26/18 14:00 Pulse Rate 91 H 09/26/18 14:00 Respiratory Rate 20 09/26/18 14:00 Blood Pressure 127/76 09/26/18 14:00 O2 Sat by Pulse Oximetry (%) 88 L 09/26/18 11:52 Constitutional: Yes: No Distress HENT: Yes: Atraumatic Neck: Yes: Supple Cardiovascular: Yes: Regular Rate and Rhythm Respiratory: Yes: CTA Bilaterally Gastrointestinal: Yes: Normal Bowel Sounds Extremities: Yes: WNL Neurological: Yes: Alert, Oriented Labs: CBC, BMP 09/24/18 05:40 09/25/18 05:30 INR, PTT INR 0.97 (0.83-1.09) 09/23/18 11:29 Problem List - Problems (1) Cough Assessment/Plan: prn cough syrup Code(s): R05 - COUGH (2) Pleural effusion Code(s): J90 - PLEURAL EFFUSION, NOT ELSEWHERE CLASSIFIED (3) Pneumonia Assessment/Plan: abx per id Code(s): J18.9 - PNEUMONIA, UNSPECIFIED ORGANISM (4) Asthma Assessment/Plan: on steroids duo nebs Code(s): J45.909 - UNSPECIFIED ASTHMA, UNCOMPLICATED (5) CKD (chronic kidney disease) Assessment/Plan: monitor Code(s): N18.9 - CHRONIC KIDNEY DISEASE, UNSPECIFIED Qualifiers: Chronic kidney disease stage: stage 3 (moderate) Qualified Code(s): N18.3 - Chronic kidney disease, stage 3 (moderate) (6) H/O malignant neoplasm of breast Code(s): Z85.3 - PERSONAL HISTORY OF MALIGNANT NEOPLASM OF BREAST
--- NOTE | 2018-09-26 16:50 | PN ---
Progress Note (short form) - Note Progress Note: RENAL Pt is awake and sita says she feels better though she still wheezes no N/V no diffculty urinating Last Vital Signs Temp Pulse Resp BP Pulse Ox 97.7 F 91 H 20 127/76 88 L 09/26/18 14:00 09/26/18 14:00 09/26/18 14:00 09/26/18 14:00 09/26/18 11:52 lungs bilat wheezes and rhonchi cvs s1s2 rr +WANDA abd soft ext +edema neuro a+ox3 CBC, BMP 09/24/18 05:40 09/25/18 05:30 Current Medications Generic Name Dose Route Start Last Admin Trade Name Freq PRN Reason Stop Dose Admin Albuterol Sulfate 1 amp 09/24/18 09:28 09/26/18 03:55 Ventolin 0.083% Nebulizer Soln - NEB 1 amp Q4H PRN Administration SHORT OF BREATH/WHEEZING Albuterol/Ipratropium 1 amp 09/24/18 12:00 09/26/18 15:38 Duoneb - NEB 1 amp RQID [facility] Administration Allopurinol 100 mg 09/24/18 10:00 09/26/18 09:45 Zyloprim - PO 100 mg DAILY [facility] Administration Amlodipine Besylate 5 mg 09/26/18 10:38 Norvasc - PO DAILY [facility] Budesonide/Formoterol Fumarate 2 puff 09/23/18 22:00 09/26/18 09:46 Symbicort 160/4.5mcg - IH 2 puff BID [facility] Administration Guaifenesin 10 ml 09/24/18 18:25 09/26/18 09:45 Robitussin - PO 10 ml Q6H PRN Administration COUGH Heparin Sodium (Porcine) 5,000 unit 09/23/18 22:00 09/26/18 09:45 Heparin - SQ 5,000 unit BID [facility] Administration Levothyroxine Sodium 75 mcg 09/24/18 07:00 09/26/18 07:40 Synthroid - PO 75 mcg ACBK [facility] Administration Nebivolol 2.5 mg 09/26/18 10:45 09/26/18 11:34 Bystolic - PO 2.5 mg DAILY [facility] Administration Prednisone 40 mg 09/26/18 10:30 09/26/18 10:37 Deltasone - PO Not Given DAILY [facility] Tiotropium [place] 2 puff 09/24/18 10:00 09/26/18 09:46 Spiriva Respimat IH 2 puff DAILY [facility] Administration Impression 1. CKD with subnephrotic proteinuria 2. hypothyroidism 3. breast cancer 4. pleural effusion 5. gout 6. asthma 7. liver disease 8. copd 9. asthma Plan - cont steroids - no lasix at this time - repeat labs in am -smoking cessation discussed - avoid nsaids
[2018-09-27] MEDS: ALBUTEROL SO4 0.083% IH SOL 2.5 MG/3 ML VIAL.NEB. NEB PRN (00:04)
[2018-09-27] MEDS: LEVOTHYROXINE NA 75 MCG TABLET (FP) PO SCH (06:52)
--- NOTE | 2018-09-27 07:58 | PN ---
Progress Note (short form) - Note Progress Note: Chief Complaint: Events noted, notes reviewed, sitting in a chair reports persistent dyspnea but improved, denies orthopnea or PND, denies any chest pain History of Present Illness: Seen and examined on telemetry. Events noted, notes reviewed, sitting in a chair reports persistent dyspnea but improved, denies orthopnea or PND, denies any chest pain Echocardiography dated 09/24/2018 normal LV and RV size and function, trace MR and TR Current Medications: Current Medications Albuterol Sulfate (Ventolin 0.083% Nebulizer Soln -) 1 amp NEB Q4H PRN PRN Reason: SHORT OF BREATH/WHEEZING Last Admin: 09/27/18 00:04 Dose: 1 amp Albuterol/Ipratropium (Duoneb -) [address] [facility] Last Admin: 09/26/18 20:48 Dose: 1 amp Allopurinol (Zyloprim -) [address] [facility] Last Admin: 09/26/18 09:45 Dose: 100 mg Amlodipine Besylate (Norvasc -) [address] [facility] Budesonide/Formoterol Fumarate (Symbicort 160/4.5mcg -) [address] [facility] Last Admin: 09/26/18 21:20 Dose: 2 puff Guaifenesin (Robitussin -) 10 ml PO Q6H PRN PRN Reason: COUGH Last Admin: 09/26/18 09:45 Dose: 10 ml Heparin Sodium (Porcine) (Heparin -) 5,[address] [facility] Last Admin: 09/26/18 21:20 Dose: 5,000 unit Levothyroxine Sodium (Synthroid -) [address] [facility] Last Admin: 09/27/18 06:52 Dose: 75 mcg Nebivolol (Bystolic -) 2.[address] [facility] Last Admin: 09/26/18 11:34 Dose: 2.5 mg Prednisone (Deltasone -) [address] [facility] Last Admin: 09/26/18 10:37 Dose: Not Given Tiotropium [place] (Spiriva Respimat) [address] [facility] Last Admin: 09/26/18 09:46 Dose: 2 puff Review of Systems Constitutional: denies Chills or Fever Respiratory: reports Cough non productive of Sputum Cardiovascular: As noted above Gastrointestinal: denies Nausea, Vomiting, Diarrhea, Constipation or Abdominal Pain Genitourinary: denies Frequency or Urgency Musculoskeletal: No symptoms reported - Objective Vital Signs: Last Vital Signs Temp Pulse Resp BP Pulse Ox 97.5 F L 75 20 137/64 90 L 09/27/18 06:00 09/27/18 06:00 09/27/18 06:00 09/27/18 06:00 09/26/18 21:00 Intake & Output 09/24/18 09/25/18 09/26/18 09/27/18 23:59 23:59 23:59 23:59 Intake Total 250 1220 20 Balance 250 1220 20 Neck: Supple Negative JVD No bruit Respiratory: Diminished breath sounds at the bases Bilateral Scattered Rhonchi Cardiovascular: S1, S2 Regular Rate and Rhythm Gastrointestinal: Soft Benign Normal Bowel Sounds Ext: Edema Labs: CBC, BMP 09/24/18 05:40 09/25/18 05:30 Hepatic Panel Total Bilirubin 0.3 mg/dL (0.2-1) 09/25/18 05:30 AST 13 U/L (15-37) L 09/25/18 05:30 ALT 12 U/L (13-61) L 09/25/18 05:30 Alkaline Phosphatase 67 U/L (45-117) 09/25/18 05:30 Albumin 2.5 g/dl (3.4-5.0) L 09/25/18 05:30 Assessment/Plan ASSESSMENT: 1. Acute exacerbation of COPD, resolving 2. Diastolic left ventricular dysfunction with clinical class I NYHA classification LV failure, resolving 3. CAD with demand ischemia related to above 4. hypothyroidism 5. Acute on CKD 6. History of breast CA PLAN: 1. Continue IV Steroids, bronchodilators and supplemental O2 as per the primary team 2. Continue to observe off of diuretics pending renal function recovery 3. Continue Amlodipine 4. Continue Bystolic with caution Bob Moody MD
[2018-09-27] MEDS: ALBUTEROL SO4 2.5/IPRATROPIUM 0.5 INH SOL 3 ML VIAL.NEB. NEB SCH ×4 (08:20→20:45)
[2018-09-27] MEDS: amLODIPine BESYLATE 5 MG TABLET (FP) PO SCH (09:30)
[2018-09-27] MEDS: predniSONE 20 MG TABLET (UD) PO SCH (09:30)
[2018-09-27] MEDS: ALLOPURINOL 100 MG TABLET (FP) PO SCH (09:30)
[2018-09-27] MEDS: HEPARIN NA (PORCINE) 5,000 UNITS/ML 1ML VIAL SQ SCH ×2 (09:30→21:41)
[2018-09-27] MEDS: BUDESONIDE/FORMETEROL FUMARATE 160/4.5 mcg INHALER IH SCH ×2 (09:31→21:41)
[2018-09-27] MEDS: TIOTROPIUM BROMIDE 2.5 MCG (SPIRIVA) RESPIMAT INHALER IH SCH (09:31)
[2018-09-27] MEDS: NEBIVOLOL 2.5 MG TABLET (FP) PO SCH (09:33)
[2018-09-27] MEDS ORDERED: ALBUTEROL SO4 0.083% IH SOL 2.5 MG/3 ML VIAL.NEB. NEB PRN (10:42)
--- NOTE | 2018-09-27 10:44 | PN ---
Progress Note (short form) - Note Progress Note: PULMONARY AWAKE/ALERT APPEARS DYSPNEIC AT REST MINIMIZING SYMPTOMS VSS/AFEBRILE Eyes: Yes: Conjunctiva Clear, EOM Intact HENT: Yes: Atraumatic, Normocephalic Neck: Yes: Supple, Trachea Midline Cardiovascular: Yes: Tachycardia Respiratory: Yes: Accessory Muscle Use, Cough, On Nasal O2, Rhonchi, SOB, SOB on Exertion, Tachypnea, Wheezes. No: Rales, Stridor ...Inspection: Yes: WNL ...Clubbing: No Gastrointestinal: Yes: Normal Bowel Sounds, Soft Renal/: Yes: WNL Musculoskeletal: Yes: WNL Extremities: Yes: WNL Edema: No Peripheral Pulses WNL: Yes Integumentary: Yes: WNL Neurological: Yes: WNL, Alert, Oriented ...Motor Strength: WNL Psychiatric: Yes: WNL, Alert, Oriented LABS/CXR/NOTES/MEDS REVIEWED Problem List - Problems (1) Acute exacerbation of chronic obstructive airways disease Code(s): J44.1 - CHRONIC OBSTRUCTIVE PULMONARY DISEASE W (ACUTE) EXACERBATION (2) Cough Code(s): R05 - COUGH (3) Pleural effusion Code(s): J90 - PLEURAL EFFUSION, NOT ELSEWHERE CLASSIFIED (4) Allergy to multiple antibiotics Code(s): Z88.1 - ALLERGY STATUS TO OTHER ANTIBIOTIC AGENTS STATUS (5) Asthma Code(s): J45.909 - UNSPECIFIED ASTHMA, UNCOMPLICATED (6) CKD (chronic kidney disease) Code(s): N18.9 - CHRONIC KIDNEY DISEASE, UNSPECIFIED (7) Gout Code(s): M10.9 - GOUT, UNSPECIFIED (8) H/O malignant neoplasm of breast Code(s): Z85.3 - PERSONAL HISTORY OF MALIGNANT NEOPLASM OF BREAST Medrol restarted BD TX standing in PRN O2 as needed/check spo2 r/a post amb Will need outpatient imaging followup No smoking discussed Will follow hold discharge planning for now Mike RODRIGUES MD
[2018-09-27] MEDS: methylPREDNISolone NA SUCC 40 MG/1 ML VIAL IVPUSH SCH ×3 (10:45→21:41)
--- NOTE | 2018-09-27 12:42 | PN ---
Progress Note (short form) - Note Progress Note: RENAL Pt is awake and sita says she feels better though she still wheezes no N/V no diffculty urinating was about to have lunch when seen Last Vital Signs Temp Pulse Resp BP Pulse Ox 97.5 F L 90 18 123/64 91 L 09/27/18 06:00 09/27/18 10:43 09/27/18 10:43 09/27/18 10:43 09/27/18 07:58 lungs bilat wheezes and rhonchi cvs s1s2 rr +WANDA abd soft ext +edema neuro a+ox3 CBC, BMP 09/24/18 05:40 09/25/18 05:30 Current Medications Generic Name Dose Route Start Last Admin Trade Name Freq PRN Reason Stop Dose Admin Albuterol Sulfate 1 amp 09/27/18 10:42 Ventolin 0.083% Nebulizer Soln - NEB Q1H PRN SHORT OF BREATH/WHEEZING Albuterol/Ipratropium 1 amp 09/24/18 12:00 09/27/18 11:23 Duoneb - NEB 1 amp RQID [facility] Administration Allopurinol 100 mg 09/24/18 10:00 09/27/18 09:30 Zyloprim - PO 100 mg DAILY [facility] Administration Amlodipine Besylate 5 mg 09/26/18 10:38 09/27/18 09:30 Norvasc - PO 5 mg DAILY [facility] Administration Budesonide/Formoterol Fumarate 2 puff 09/23/18 22:00 09/27/18 09:31 Symbicort 160/4.5mcg - IH 2 puff BID [facility] Administration Guaifenesin 10 ml 09/24/18 18:25 09/26/18 09:45 Robitussin - PO 10 ml Q6H PRN Administration COUGH Heparin Sodium (Porcine) 5,000 unit 09/23/18 22:00 09/27/18 09:30 Heparin - SQ 5,000 unit BID [facility] Administration Levothyroxine Sodium 75 mcg 09/24/18 07:00 09/27/18 06:52 Synthroid - PO 75 mcg ACBK [facility] Administration Methylprednisolone Sodium Succinate 40 mg 09/27/18 10:45 09/27/18 10:45 Solu-Medrol - IVPUSH Not Given Q6H-IV [facility] Nebivolol 2.5 mg 09/26/18 10:45 09/27/18 09:33 Bystolic - PO 2.5 mg DAILY [facility] Administration Impression 1. CKD with subnephrotic proteinuria 2. hypothyroidism 3. breast cancer 4. pleural effusion 5. gout 6. asthma 7. liver disease 8. copd 9. asthma Plan - cont steroids - no lasix at this time - repeat labs in am -smoking cessation discussed - avoid nsaids MV
--- NOTE | 2018-09-27 12:45 | PN ---
Progress Note, Physician History of Present Illness: doing well says near back to normal - Current Medication List Current Medications: Active Medications Albuterol Sulfate (Ventolin 0.083% Nebulizer Soln -) 1 amp NEB Q1H PRN PRN Reason: SHORT OF BREATH/WHEEZING Albuterol/Ipratropium (Duoneb -) 1 amp NEB RQID [facility] Last Admin: 09/27/18 11:23 Dose: 1 amp Allopurinol (Zyloprim -) 100 mg PO DAILY [facility] Last Admin: 09/27/18 09:30 Dose: 100 mg Amlodipine Besylate (Norvasc -) 5 mg PO DAILY [facility] Last Admin: 09/27/18 09:30 Dose: 5 mg Budesonide/Formoterol Fumarate (Symbicort 160/4.5mcg -) 2 puff IH BID [facility] Last Admin: 09/27/18 09:31 Dose: 2 puff Guaifenesin (Robitussin -) 10 ml PO Q6H PRN PRN Reason: COUGH Last Admin: 09/26/18 09:45 Dose: 10 ml Heparin Sodium (Porcine) (Heparin -) 5,000 unit SQ BID [facility] Last Admin: 09/27/18 09:30 Dose: 5,000 unit Levothyroxine Sodium (Synthroid -) 75 mcg PO ACBK [facility] Last Admin: 09/27/18 06:52 Dose: 75 mcg Methylprednisolone Sodium Succinate (Solu-Medrol -) 40 mg IVPUSH Q6H-IV [facility] Last Admin: 09/27/18 10:45 Dose: Not Given Nebivolol (Bystolic -) 2.5 mg PO DAILY [facility] Last Admin: 09/27/18 09:33 Dose: 2.5 mg - Objective Vital Signs: Vital Signs Temperature 97.5 F L 09/27/18 06:00 Pulse Rate 90 09/27/18 10:43 Respiratory Rate 18 09/27/18 10:43 Blood Pressure 123/64 09/27/18 10:43 O2 Sat by Pulse Oximetry (%) 91 L 09/27/18 07:58 Constitutional: Yes: No Distress, Calm Cardiovascular: Yes: S1, S2 Respiratory: Yes: Regular, On Nasal O2, Poor Air Entry Gastrointestinal: Yes: Normal Bowel Sounds, Soft Musculoskeletal: Yes: WNL Extremities: Yes: WNL Neurological: Yes: Alert, Oriented Psychiatric: Yes: Alert, Oriented Labs: CBC, BMP 09/24/18 05:40 09/25/18 05:30 INR, PTT INR 0.97 (0.83-1.09) 09/23/18 11:29 Assessment/Plan Problem List - Problems (1) Diastolic dysfunction Code(s): I51.9 - HEART DISEASE, UNSPECIFIED (2) Acute exacerbation of chronic obstructive airways disease Code(s): J44.1 - CHRONIC OBSTRUCTIVE PULMONARY DISEASE W (ACUTE) EXACERBATION (3) Dyspnea Code(s): R06.00 - DYSPNEA, UNSPECIFIED Qualifiers: Dyspnea type: shortness of breath Qualified Code(s): R06.02 - Shortness of breath; R06.00 - Dyspnea, unspecified; R06.01 - Orthopnea (4) HTN (hypertension) Code(s): I10 - ESSENTIAL (PRIMARY) HYPERTENSION Qualifiers: Hypertension type: essential hypertension Qualified Code(s): I10 - Essential (primary) hypertension (5) Pleural effusion Code(s): J90 - PLEURAL EFFUSION, NOT ELSEWHERE CLASSIFIED (6) CKD (chronic kidney disease) Code(s): N18.9 - CHRONIC KIDNEY DISEASE, UNSPECIFIED Qualifiers: Chronic kidney disease stage: stage 3 (moderate) Qualified Code(s): N18.3 - Chronic kidney disease, stage 3 (moderate) plan continue to monitor incentive mary resp support rest as per the team
--- NOTE | 2018-09-27 18:31 | PN ---
Progress Note, Physician History of Present Illness: Pt still w/ dyspnea - Current Medication List Current Medications: Active Medications Albuterol Sulfate (Ventolin 0.083% Nebulizer Soln -) 1 amp NEB Q1H PRN PRN Reason: SHORT OF BREATH/WHEEZING Albuterol/Ipratropium (Duoneb -) 1 amp NEB RQID [facility] Last Admin: 09/27/18 16:00 Dose: 1 amp Allopurinol (Zyloprim -) 100 mg PO DAILY [facility] Last Admin: 09/27/18 09:30 Dose: 100 mg Amlodipine Besylate (Norvasc -) 5 mg PO DAILY [facility] Last Admin: 09/27/18 09:30 Dose: 5 mg Budesonide/Formoterol Fumarate (Symbicort 160/4.5mcg -) 2 puff IH BID [facility] Last Admin: 09/27/18 09:31 Dose: 2 puff Guaifenesin (Robitussin -) 10 ml PO Q6H PRN PRN Reason: COUGH Last Admin: 09/26/18 09:45 Dose: 10 ml Heparin Sodium (Porcine) (Heparin -) 5,000 unit SQ BID [facility] Last Admin: 09/27/18 09:30 Dose: 5,000 unit Levothyroxine Sodium (Synthroid -) 75 mcg PO ACBK [facility] Last Admin: 09/27/18 06:52 Dose: 75 mcg Methylprednisolone Sodium Succinate (Solu-Medrol -) 40 mg IVPUSH Q6H-IV [facility] Last Admin: 09/27/18 14:04 Dose: 40 mg Nebivolol (Bystolic -) 2.5 mg PO DAILY [facility] Last Admin: 09/27/18 09:33 Dose: 2.5 mg - Objective Vital Signs: Vital Signs Temperature 97.7 F 09/27/18 18:00 Pulse Rate 83 09/27/18 18:00 Respiratory Rate 18 09/27/18 18:00 Blood Pressure 133/62 09/27/18 18:00 O2 Sat by Pulse Oximetry (%) 91 L 09/27/18 07:58 Neck: Yes: WNL, Supple Cardiovascular: Yes: WNL, Regular Rate and Rhythm Respiratory: Yes: Rhonchi Gastrointestinal: Yes: WNL, Normal Bowel Sounds, Soft Labs: CBC, BMP 09/24/18 05:40 09/25/18 05:30 INR, PTT INR 0.97 (0.83-1.09) 09/23/18 11:29 Problem List - Problems (1) Acute exacerbation of chronic obstructive airways disease Assessment/Plan: Repeat CXR Cont nebulizers Cont IV solumedrol and taper as necessary Code(s): J44.1 - CHRONIC OBSTRUCTIVE PULMONARY DISEASE W (ACUTE) EXACERBATION (2) CKD (chronic kidney disease) Assessment/Plan: Acute on chronic renal failure Check bun/creatinine in am Code(s): N18.9 - CHRONIC KIDNEY DISEASE, UNSPECIFIED Qualifiers: Chronic kidney disease stage: stage 3 (moderate) Qualified Code(s): N18.3 - Chronic kidney disease, stage 3 (moderate) (3) CHF (congestive heart failure) Assessment/Plan: Acute on chronic diastolic heart failure Code(s): I50.9 - HEART FAILURE, UNSPECIFIED (4) HTN (hypertension) Assessment/Plan: BP stable Cont antihypertensives Code(s): I10 - ESSENTIAL (PRIMARY) HYPERTENSION Qualifiers: Hypertension type: essential hypertension Qualified Code(s): I10 - Essential (primary) hypertension (5) Anemia Code(s): D64.9 - ANEMIA, UNSPECIFIED (6) H/O malignant neoplasm of breast Code(s): Z85.3 - PERSONAL HISTORY OF MALIGNANT NEOPLASM OF BREAST
[2018-09-28] MEDS: methylPREDNISolone NA SUCC 40 MG/1 ML VIAL IVPUSH SCH ×4 (03:05→21:46)
[2018-09-28] MEDS: LEVOTHYROXINE NA 75 MCG TABLET (FP) PO SCH (06:24)
[2018-09-28 06:40] LABS: BASO % 0.1 % (0-2.0); HEMATOCRIT 28.2 % (32.4-45.2); HEMOGLOBIN 9.6 GM/dL (10.7-15.3); LYMPH % 4.3 % (8-40); MCH 29.2 pg (25.7-33.7); MEAN CELL VOLUME 85.9 fl (80-96); MONO % 2.8 % (3.8-10.2); NEUT % 92.8 % (42.8-82.8); PLATELET COUNT 354 K/MM3 (134-434); RBC 3.28 M/mm3 (3.60-5.2); RDW 15.7 % (11.6-15.6); WHITE BLOOD COUNT 11.8 K/mm3 (4.0-10.0)
[2018-09-28] MEDS: ALBUTEROL SO4 2.5/IPRATROPIUM 0.5 INH SOL 3 ML VIAL.NEB. NEB SCH ×4 (07:15→20:51)
[2018-09-28 07:32] LABS: ALBUMIN 2.8 g/dl (3.4-5.0); ALK PHOS 64 U/L (45-117); ANION GAP 9 MMOL/L (8-16); BILIRUBIN,TOTAL 0.2 mg/dL (0.2-1); BLOOD UREA NITROGEN 93 mg/dL (7-18); CALCIUM 8.7 mg/dL (8.5-10.1); CHLORIDE 98 mmol/L (98-107); CO2 28 mmol/L (21-32); CREATININE 3.1 mg/dL (0.55-1.3); GLUCOSE,RANDOM 142 mg/dL (74-106); POTASSIUM 4.6 mmol/L (3.5-5.1); SGOT/AST 15 U/L (15-37); SGPT/ALT 15 U/L (13-61); SODIUM 135 mmol/L (136-145); TOT PROT 6.5 g/dl (6.4-8.2)
[2018-09-28] MEDS ORDERED: PT OWN MED DRAWER 7, Y5N ONE (09:16)
[2018-09-28] MEDS: ALLOPURINOL 100 MG TABLET (FP) PO SCH (09:27)
[2018-09-28] MEDS: amLODIPine BESYLATE 5 MG TABLET (FP) PO SCH (09:28)
[2018-09-28] MEDS: HEPARIN NA (PORCINE) 5,000 UNITS/ML 1ML VIAL SQ SCH ×2 (09:28→21:46)
[2018-09-28] MEDS: BUDESONIDE/FORMETEROL FUMARATE 160/4.5 mcg INHALER IH SCH ×2 (09:28→21:46)
[2018-09-28] MEDS: NEBIVOLOL 2.5 MG TABLET (FP) PO SCH (09:32)
[2018-09-28 10:58] LABS: ACANTHOCYTES 0; ANISOCYTOSIS 0; HELMET CELLS 0; HOWELL-JOLLY BODIES 0; MACROCYTOSIS 0; OVALOCYTE 0; PLATELET ESTIMATE NORMAL; ROULEAU 0; SICKELED CELLS 0; TARGET CELLS 0; TEAR DROP CELLS 0; TOXIC GRANULATION 0
--- NOTE | 2018-09-28 11:46 | PN ---
Progress Note, Physician - Current Medication List Current Medications: Active Medications Albuterol Sulfate (Ventolin 0.083% Nebulizer Soln -) 1 amp NEB Q1H PRN PRN Reason: SHORT OF BREATH/WHEEZING Albuterol/Ipratropium (Duoneb -) 1 amp NEB RQID [facility] Last Admin: 09/28/18 07:15 Dose: 1 amp Allopurinol (Zyloprim -) 100 mg PO DAILY [facility] Last Admin: 09/28/18 09:27 Dose: 100 mg Amlodipine Besylate (Norvasc -) 5 mg PO DAILY [facility] Last Admin: 09/28/18 09:28 Dose: 5 mg Budesonide/Formoterol Fumarate (Symbicort 160/4.5mcg -) 2 puff IH BID [facility] Last Admin: 09/28/18 09:28 Dose: 2 puff Guaifenesin (Robitussin -) 10 ml PO Q6H PRN PRN Reason: COUGH Last Admin: 09/26/18 09:45 Dose: 10 ml Heparin Sodium (Porcine) (Heparin -) 5,000 unit SQ BID [facility] Last Admin: 09/28/18 09:28 Dose: 5,000 unit Levothyroxine Sodium (Synthroid -) 75 mcg PO ACBK [facility] Last Admin: 09/28/18 06:24 Dose: 75 mcg Methylprednisolone Sodium Succinate (Solu-Medrol -) 40 mg IVPUSH Q6H-IV [facility] Last Admin: 09/28/18 09:27 Dose: 40 mg Nebivolol (Bystolic -) 2.5 mg PO DAILY [facility] Last Admin: 09/28/18 09:32 Dose: 2.5 mg - Objective Vital Signs: Vital Signs Temperature 97.3 F L 09/28/18 09:24 Pulse Rate 83 09/28/18 09:24 Respiratory Rate 18 09/28/18 09:24 Blood Pressure 125/72 09/28/18 09:24 O2 Sat by Pulse Oximetry (%) 90 L 09/27/18 21:00 Constitutional: Yes: No Distress HENT: Yes: Atraumatic Neck: Yes: Supple Cardiovascular: Yes: Regular Rate and Rhythm Respiratory: Yes: Rhonchi Gastrointestinal: Yes: Normal Bowel Sounds Extremities: Yes: WNL Edema: No Peripheral Pulses WNL: Yes Neurological: Yes: Alert, Oriented Labs: CBC, BMP 09/28/18 05:30 09/28/18 05:30 INR, PTT INR 0.97 (0.83-1.09) 09/23/18 11:29 Problem List - Problems (1) Cough Assessment/Plan: prn cough syrup Code(s): R05 - COUGH (2) Pleural effusion Code(s): J90 - PLEURAL EFFUSION, NOT ELSEWHERE CLASSIFIED (3) Pneumonia Assessment/Plan: off of abx Code(s): J18.9 - PNEUMONIA, UNSPECIFIED ORGANISM (4) Asthma Assessment/Plan: on steroids duo nebs Code(s): J45.909 - UNSPECIFIED ASTHMA, UNCOMPLICATED (5) CKD (chronic kidney disease) Assessment/Plan: monitor Code(s): N18.9 - CHRONIC KIDNEY DISEASE, UNSPECIFIED Qualifiers: Chronic kidney disease stage: stage 3 (moderate) Qualified Code(s): N18.3 - Chronic kidney disease, stage 3 (moderate) (6) H/O malignant neoplasm of breast Code(s): Z85.3 - PERSONAL HISTORY OF MALIGNANT NEOPLASM OF BREAST
--- NOTE | 2018-09-28 11:51 | PN ---
Progress Note, Physician History of Present Illness: PULMONARY ALERT,OOB-CHAIR,LESS DYSPNEIC,-RESP DISTRESS - Current Medication List Current Medications: Active Medications Albuterol Sulfate (Ventolin 0.083% Nebulizer Soln -) 1 amp NEB Q1H PRN PRN Reason: SHORT OF BREATH/WHEEZING Albuterol/Ipratropium (Duoneb -) 1 amp NEB RQID [facility] Last Admin: 09/28/18 07:15 Dose: 1 amp Allopurinol (Zyloprim -) 100 mg PO DAILY [facility] Last Admin: 09/28/18 09:27 Dose: 100 mg Amlodipine Besylate (Norvasc -) 5 mg PO DAILY [facility] Last Admin: 09/28/18 09:28 Dose: 5 mg Budesonide/Formoterol Fumarate (Symbicort 160/4.5mcg -) 2 puff IH BID [facility] Last Admin: 09/28/18 09:28 Dose: 2 puff Guaifenesin (Robitussin -) 10 ml PO Q6H PRN PRN Reason: COUGH Last Admin: 09/26/18 09:45 Dose: 10 ml Heparin Sodium (Porcine) (Heparin -) 5,000 unit SQ BID [facility] Last Admin: 09/28/18 09:28 Dose: 5,000 unit Levothyroxine Sodium (Synthroid -) 75 mcg PO ACBK [facility] Last Admin: 09/28/18 06:24 Dose: 75 mcg Methylprednisolone Sodium Succinate (Solu-Medrol -) 40 mg IVPUSH Q6H-IV [facility] Last Admin: 09/28/18 09:27 Dose: 40 mg Nebivolol (Bystolic -) 2.5 mg PO DAILY [facility] Last Admin: 09/28/18 09:32 Dose: 2.5 mg - Objective Vital Signs: Vital Signs Temperature 97.3 F L 09/28/18 09:24 Pulse Rate 83 09/28/18 09:24 Respiratory Rate 18 09/28/18 09:24 Blood Pressure 125/72 09/28/18 09:24 O2 Sat by Pulse Oximetry (%) 90 L 09/27/18 21:00 Constitutional: Yes: Well Nourished, Calm Eyes: Yes: WNL HENT: Yes: WNL Neck: Yes: WNL Cardiovascular: Yes: Regular Rate and Rhythm, S1, S2 Respiratory: Yes: Wheezes (ANA WHEEZES) Gastrointestinal: Yes: Normal Bowel Sounds, Soft Extremities: Yes: WNL Edema: No Labs: CBC, BMP 09/28/18 05:30 09/28/18 05:30 INR, PTT Assessment/Plan eyad List - Problems (1) Acute exacerbation of chronic obstructive airways disease Code(s): J44.1 - CHRONIC OBSTRUCTIVE PULMONARY DISEASE W (ACUTE) EXACERBATION (2) Cough Code(s): R05 - COUGH (3) Pleural effusion Code(s): J90 - PLEURAL EFFUSION, NOT ELSEWHERE CLASSIFIED (4) Allergy to multiple antibiotics Code(s): Z88.1 - ALLERGY STATUS TO OTHER ANTIBIOTIC AGENTS STATUS (5) Asthma Code(s): J45.909 - UNSPECIFIED ASTHMA, UNCOMPLICATED (6) CKD (chronic kidney disease) Code(s): N18.9 - CHRONIC KIDNEY DISEASE, UNSPECIFIED (7) Gout Code(s): M10.9 - GOUT, UNSPECIFIED (8) H/O malignant neoplasm of breast Code(s): Z85.3 - PERSONAL HISTORY OF MALIGNANT NEOPLASM OF BREAST 9 ACUTE ON CHRONIC KIDNEY INJURY 10 Left pleural effusion Medrol BD TX standing in PRN O2 check spo2 r/a post amb Will need outpatient imaging followup No smoking discussed Monitor lytes,renal function chest x-ray today DR GAINES
--- NOTE | 2018-09-28 14:35 | PN ---
Progress Note, Physician History of Present Illness: Pt seen and examined at bedside. She says that she feels much better. She feels that her breathing is improved. She denies dysuria. - Current Medication List Current Medications: Active Medications Albuterol Sulfate (Ventolin 0.083% Nebulizer Soln -) 1 amp NEB Q1H PRN PRN Reason: SHORT OF BREATH/WHEEZING Albuterol/Ipratropium (Duoneb -) 1 amp NEB RQID [facility] Last Admin: 09/28/18 11:10 Dose: 1 amp Allopurinol (Zyloprim -) 100 mg PO DAILY [facility] Last Admin: 09/28/18 09:27 Dose: 100 mg Amlodipine Besylate (Norvasc -) 5 mg PO DAILY [facility] Last Admin: 09/28/18 09:28 Dose: 5 mg Budesonide/Formoterol Fumarate (Symbicort 160/4.5mcg -) 2 puff IH BID [facility] Last Admin: 09/28/18 09:28 Dose: 2 puff Guaifenesin (Robitussin -) 10 ml PO Q6H PRN PRN Reason: COUGH Last Admin: 09/26/18 09:45 Dose: 10 ml Heparin Sodium (Porcine) (Heparin -) 5,000 unit SQ BID [facility] Last Admin: 09/28/18 09:28 Dose: 5,000 unit Levothyroxine Sodium (Synthroid -) 75 mcg PO ACBK [facility] Last Admin: 09/28/18 06:24 Dose: 75 mcg Methylprednisolone Sodium Succinate (Solu-Medrol -) 40 mg IVPUSH Q6H-IV [facility] Last Admin: 09/28/18 09:27 Dose: 40 mg Nebivolol (Bystolic -) 2.5 mg PO DAILY [facility] Last Admin: 09/28/18 09:32 Dose: 2.5 mg - Objective Vital Signs: Vital Signs Temperature 97.9 F 09/28/18 14:17 Pulse Rate 88 09/28/18 14:17 Respiratory Rate 18 09/28/18 14:17 Blood Pressure 120/59 L 09/28/18 14:17 O2 Sat by Pulse Oximetry (%) 96 09/28/18 09:00 Constitutional: Yes: Calm Eyes: Yes: Conjunctiva Clear HENT: Yes: Atraumatic Cardiovascular: Yes: S1, S2 Respiratory: Yes: On Nasal O2, Wheezes Gastrointestinal: Yes: Soft Genitourinary: Yes: WNL Musculoskeletal: Yes: WNL Edema: No Neurological: Yes: Oriented Psychiatric: Yes: Oriented Labs: CBC, BMP 09/28/18 05:30 09/28/18 05:30 INR, PTT INR 0.97 (0.83-1.09) 09/23/18 11:29 Problem List - Problems (1) Acute exacerbation of chronic obstructive airways disease Code(s): J44.1 - CHRONIC OBSTRUCTIVE PULMONARY DISEASE W (ACUTE) EXACERBATION (2) CKD (chronic kidney disease) Code(s): N18.9 - CHRONIC KIDNEY DISEASE, UNSPECIFIED Qualifiers: Chronic kidney disease stage: stage 3 (moderate) Qualified Code(s): N18.3 - Chronic kidney disease, stage 3 (moderate) Assessment/Plan Current Medications Generic Name Dose Route Start Last Admin Trade Name Freq PRN Reason Stop Dose Admin Albuterol Sulfate 1 amp 09/27/18 10:42 Ventolin 0.083% Nebulizer Soln - NEB Q1H PRN SHORT OF BREATH/WHEEZING Albuterol/Ipratropium 1 amp 09/24/18 12:00 09/28/18 11:10 Duoneb - NEB 1 amp RQID [facility] Administration Allopurinol 100 mg 09/24/18 10:00 09/28/18 09:27 Zyloprim - PO 100 mg DAILY [facility] Administration Amlodipine Besylate 5 mg 09/26/18 10:38 09/28/18 09:28 Norvasc - PO 5 mg DAILY [facility] Administration Budesonide/Formoterol Fumarate 2 puff 09/23/18 22:00 09/28/18 09:28 Symbicort 160/4.5mcg - IH 2 puff BID [facility] Administration Guaifenesin 10 ml 09/24/18 18:25 09/26/18 09:45 Robitussin - PO 10 ml Q6H PRN Administration COUGH Heparin Sodium (Porcine) 5,000 unit 09/23/18 22:00 09/28/18 09:28 Heparin - SQ 5,000 unit BID [facility] Administration Levothyroxine Sodium 75 mcg 09/24/18 07:00 09/28/18 06:24 Synthroid - PO 75 mcg ACBK [facility] Administration Methylprednisolone Sodium Succinate 40 mg 09/27/18 10:45 09/28/18 09:27 Solu-Medrol - IVPUSH 40 mg Q6H-IV [facility] Administration Nebivolol 2.5 mg 09/26/18 10:45 09/28/18 09:32 Bystolic - PO 2.5 mg DAILY [facility] Administration Impression 1. CKD 2. hypothyroidism 3. breast cancer 4. pleural effusion 5. gout 6. asthma 7. liver disease 8. copd 9. 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
--- NOTE | 2018-09-28 14:52 | PN ---
Progress Note, Physician Chief Complaint: Events noted Feels better with less SOB History of Present Illness: Patient was seen and examined. Awake and alert. Chart was reviewed Denies chest pain, less SOB and no palpitations - Current Medication List Current Medications: Active Medications Albuterol Sulfate (Ventolin 0.083% Nebulizer Soln -) 1 amp NEB Q1H PRN PRN Reason: SHORT OF BREATH/WHEEZING Albuterol/Ipratropium (Duoneb -) 1 amp NEB RQID [facility] Last Admin: 09/28/18 11:10 Dose: 1 amp Allopurinol (Zyloprim -) 100 mg PO DAILY [facility] Last Admin: 09/28/18 09:27 Dose: 100 mg Amlodipine Besylate (Norvasc -) 5 mg PO DAILY [facility] Last Admin: 09/28/18 09:28 Dose: 5 mg Budesonide/Formoterol Fumarate (Symbicort 160/4.5mcg -) 2 puff IH BID [facility] Last Admin: 09/28/18 09:28 Dose: 2 puff Guaifenesin (Robitussin -) 10 ml PO Q6H PRN PRN Reason: COUGH Last Admin: 09/26/18 09:45 Dose: 10 ml Heparin Sodium (Porcine) (Heparin -) 5,000 unit SQ BID [facility] Last Admin: 09/28/18 09:28 Dose: 5,000 unit Levothyroxine Sodium (Synthroid -) 75 mcg PO ACBK [facility] Last Admin: 09/28/18 06:24 Dose: 75 mcg Methylprednisolone Sodium Succinate (Solu-Medrol -) 40 mg IVPUSH Q6H-IV [facility] Last Admin: 09/28/18 09:27 Dose: 40 mg Nebivolol (Bystolic -) 2.5 mg PO DAILY [facility] Last Admin: 09/28/18 09:32 Dose: 2.5 mg - Objective Vital Signs: Vital Signs Temperature 97.9 F 09/28/18 14:17 Pulse Rate 88 09/28/18 14:17 Respiratory Rate 18 09/28/18 14:17 Blood Pressure 120/59 L 09/28/18 14:17 O2 Sat by Pulse Oximetry (%) 96 09/28/18 09:00 Neck: Yes: Supple Cardiovascular: Yes: Regular Rate and Rhythm, S1, S2 Respiratory: Yes: Diminished Gastrointestinal: Yes: Normal Bowel Sounds, Soft. No: Tenderness Edema: No Additional Findings/Remarks: - Review of Systems Constitutional: denies: Chills, Fever Cardiovascular: reports: Shortness of Breath. denies: Chest Pain, Palpitations Respiratory: reports: Cough, Orthopnea, SOB, SOB on Exertion. denies: Hemoptysis, PND Genitourinary: denies: Dysuria, Hematuria Musculoskeletal: denies: Back Pain, Joint Pain Neurological: denies: Dizziness, Headache, Seizure, Syncope Labs: CBC, BMP 09/28/18 05:30 09/28/18 05:30 INR, PTT INR 0.97 (0.83-1.09) 09/23/18 11:29 Problem List - Problems (1) HTN (hypertension) Code(s): I10 - ESSENTIAL (PRIMARY) HYPERTENSION Qualifiers: Hypertension type: essential hypertension Qualified Code(s): I10 - Essential (primary) hypertension (2) Dyspnea Code(s): R06.00 - DYSPNEA, UNSPECIFIED Qualifiers: Dyspnea type: shortness of breath Qualified Code(s): R06.02 - Shortness of breath; R06.00 - Dyspnea, unspecified; R06.01 - Orthopnea (3) CHF (congestive heart failure) Code(s): I50.9 - HEART FAILURE, UNSPECIFIED (4) Acute exacerbation of chronic obstructive airways disease Code(s): J44.1 - CHRONIC OBSTRUCTIVE PULMONARY DISEASE W (ACUTE) EXACERBATION (5) Pleural effusion Code(s): J90 - PLEURAL EFFUSION, NOT ELSEWHERE CLASSIFIED (6) Anemia Code(s): D64.9 - ANEMIA, UNSPECIFIED (7) CKD (chronic kidney disease) Code(s): N18.9 - CHRONIC KIDNEY DISEASE, UNSPECIFIED Qualifiers: Chronic kidney disease stage: stage 3 (moderate) Qualified Code(s): N18.3 - Chronic kidney disease, stage 3 (moderate) (8) H/O malignant neoplasm of breast Code(s): Z85.3 - PERSONAL HISTORY OF MALIGNANT NEOPLASM OF BREAST Assessment/Plan 1. Acute exacerbation of COPD improved 2. Diastolic left ventricular dysfunction with clinical class I NYHA classification LV failure 3. CAD with demand ischemia 4. hypothyroidism 5. Acute on CKD 6. History of breast CA PLAN: 1. Continue IV Steroids eventually to be switched to PO, bronchodilators and supplemental O2 2. Continue to observe off of diuretics pending renal function recovery 3. Continue Amlodipine 4. Continue Bystolic with caution Further plan are to follow Yoel Easton MD
--- NOTE | 2018-09-28 15:37 | PN ---
Progress Note, Physician History of Present Illness: stable had sever wheezing this morning now better - Current Medication List Current Medications: Active Medications Albuterol Sulfate (Ventolin 0.083% Nebulizer Soln -) 1 amp NEB Q1H PRN PRN Reason: SHORT OF BREATH/WHEEZING Albuterol/Ipratropium (Duoneb -) 1 amp NEB RQID [facility] Last Admin: 09/28/18 11:10 Dose: 1 amp Allopurinol (Zyloprim -) 100 mg PO DAILY [facility] Last Admin: 09/28/18 09:27 Dose: 100 mg Amlodipine Besylate (Norvasc -) 5 mg PO DAILY [facility] Last Admin: 09/28/18 09:28 Dose: 5 mg Budesonide/Formoterol Fumarate (Symbicort 160/4.5mcg -) 2 puff IH BID [facility] Last Admin: 09/28/18 09:28 Dose: 2 puff Guaifenesin (Robitussin -) 10 ml PO Q6H PRN PRN Reason: COUGH Last Admin: 09/26/18 09:45 Dose: 10 ml Heparin Sodium (Porcine) (Heparin -) 5,000 unit SQ BID [facility] Last Admin: 09/28/18 09:28 Dose: 5,000 unit Levothyroxine Sodium (Synthroid -) 75 mcg PO ACBK [facility] Last Admin: 09/28/18 06:24 Dose: 75 mcg Methylprednisolone Sodium Succinate (Solu-Medrol -) 40 mg IVPUSH Q6H-IV [facility] Last Admin: 09/28/18 09:27 Dose: 40 mg Nebivolol (Bystolic -) 2.5 mg PO DAILY [facility] Last Admin: 09/28/18 09:32 Dose: 2.5 mg - Objective Vital Signs: Vital Signs Temperature 97.9 F 09/28/18 14:17 Pulse Rate 88 09/28/18 14:17 Respiratory Rate 18 09/28/18 14:17 Blood Pressure 120/59 L 09/28/18 14:17 O2 Sat by Pulse Oximetry (%) 96 09/28/18 09:00 Constitutional: Yes: Calm Cardiovascular: Yes: S1, S2 Respiratory: Yes: Regular, On Nasal O2, Wheezes Gastrointestinal: Yes: Normal Bowel Sounds, Soft Musculoskeletal: Yes: WNL Extremities: Yes: WNL Neurological: Yes: Alert, Oriented Psychiatric: Yes: Alert, Oriented Labs: CBC, BMP 09/28/18 05:30 09/28/18 05:30 INR, PTT INR 0.97 (0.83-1.09) 09/23/18 11:29 Assessment/Plan Problem List - Problems (1) Diastolic dysfunction Code(s): I51.9 - HEART DISEASE, UNSPECIFIED (2) Acute exacerbation of chronic obstructive airways disease Code(s): J44.1 - CHRONIC OBSTRUCTIVE PULMONARY DISEASE W (ACUTE) EXACERBATION (3) Dyspnea Code(s): R06.00 - DYSPNEA, UNSPECIFIED Qualifiers: Dyspnea type: shortness of breath Qualified Code(s): R06.02 - Shortness of breath; R06.00 - Dyspnea, unspecified; R06.01 - Orthopnea (4) HTN (hypertension) Code(s): I10 - ESSENTIAL (PRIMARY) HYPERTENSION Qualifiers: Hypertension type: essential hypertension Qualified Code(s): I10 - Essential (primary) hypertension (5) Pleural effusion Code(s): J90 - PLEURAL EFFUSION, NOT ELSEWHERE CLASSIFIED (6) CKD (chronic kidney disease) Code(s): N18.9 - CHRONIC KIDNEY DISEASE, UNSPECIFIED Qualifiers: Chronic kidney disease stage: stage 3 (moderate) Qualified Code(s): N18.3 - Chronic kidney disease, stage 3 (moderate) plan continue to monitor incentive mary resp support rest as per the team
[2018-09-29] MEDS: methylPREDNISolone NA SUCC 40 MG/1 ML VIAL IVPUSH SCH ×3 (03:37→17:31)
[2018-09-29] MEDS: LEVOTHYROXINE NA 75 MCG TABLET (FP) PO SCH (06:53)
[2018-09-29] MEDS: ALBUTEROL SO4 2.5/IPRATROPIUM 0.5 INH SOL 3 ML VIAL.NEB. NEB SCH (08:30)
[2018-09-29] MEDS ORDERED: PT OWN MED DRAWER 7, Y5N ONE (08:58)
[2018-09-29] MEDS: ALLOPURINOL 100 MG TABLET (FP) PO SCH (09:39)
[2018-09-29] MEDS: NEBIVOLOL 2.5 MG TABLET (FP) PO SCH (09:39)
[2018-09-29] MEDS: amLODIPine BESYLATE 5 MG TABLET (FP) PO SCH (09:39)
[2018-09-29] MEDS: HEPARIN NA (PORCINE) 5,000 UNITS/ML 1ML VIAL SQ SCH (09:39)
[2018-09-29] MEDS: BUDESONIDE/FORMETEROL FUMARATE 160/4.5 mcg INHALER IH SCH ×2 (09:41→22:15)
--- NOTE | 2018-09-29 10:01 | PN ---
Progress Note, Physician Chief Complaint: Events noted Not in distress History of Present Illness: Patient was seen and examined. Awake and alert. Chart was reviewed Denies chest pain, less SOB and no palpitations Monitor unclear of current rhythm - await ECG - Current Medication List Current Medications: Active Medications Albuterol Sulfate (Ventolin 0.083% Nebulizer Soln -) 1 amp NEB Q1H PRN PRN Reason: SHORT OF BREATH/WHEEZING Albuterol/Ipratropium (Duoneb -) 1 amp NEB RQID [facility] Last Admin: 09/29/18 08:30 Dose: 1 amp Allopurinol (Zyloprim -) 100 mg PO DAILY [facility] Last Admin: 09/29/18 09:39 Dose: 100 mg Amlodipine Besylate (Norvasc -) 5 mg PO DAILY [facility] Last Admin: 09/29/18 09:39 Dose: 5 mg Budesonide/Formoterol Fumarate (Symbicort 160/4.5mcg -) 2 puff IH BID [facility] Last Admin: 09/29/18 09:41 Dose: 2 puff Guaifenesin (Robitussin -) 10 ml PO Q6H PRN PRN Reason: COUGH Last Admin: 09/26/18 09:45 Dose: 10 ml Heparin Sodium (Porcine) (Heparin -) 5,000 unit SQ BID [facility] Last Admin: 09/29/18 09:39 Dose: 5,000 unit Levothyroxine Sodium (Synthroid -) 75 mcg PO ACBK [facility] Last Admin: 09/29/18 06:53 Dose: 75 mcg Methylprednisolone Sodium Succinate (Solu-Medrol -) 40 mg IVPUSH Q6H-IV [facility] Last Admin: 09/29/18 09:38 Dose: 40 mg Nebivolol (Bystolic -) 2.5 mg PO DAILY [facility] Last Admin: 09/29/18 09:39 Dose: 2.5 mg - Objective Vital Signs: Vital Signs Temperature 98.1 F 09/29/18 01:44 Pulse Rate 82 09/29/18 05:33 Respiratory Rate 20 09/29/18 05:33 Blood Pressure 141/68 09/29/18 05:33 O2 Sat by Pulse Oximetry (%) 96 09/28/18 21:00 Neck: Yes: Supple Cardiovascular: Yes: Pulse Irregular, S1, S2 Respiratory: Yes: Rhonchi, Wheezes Gastrointestinal: Yes: Normal Bowel Sounds, Soft. No: Tenderness Edema: No Additional Findings/Remarks: - Review of Systems Constitutional: denies: Chills, Fever Cardiovascular: reports: Shortness of Breath. denies: Chest Pain, Palpitations Respiratory: reports: Cough, Orthopnea, SOB, SOB on Exertion. denies: Hemoptysis, PND Genitourinary: denies: Dysuria, Hematuria Musculoskeletal: denies: Back Pain, Joint Pain Neurological: denies: Dizziness, Headache, Seizure, Syncope Problem List - Problems (1) HTN (hypertension) Code(s): I10 - ESSENTIAL (PRIMARY) HYPERTENSION Qualifiers: Hypertension type: essential hypertension Qualified Code(s): I10 - Essential (primary) hypertension (2) Dyspnea Code(s): R06.00 - DYSPNEA, UNSPECIFIED Qualifiers: Dyspnea type: shortness of breath Qualified Code(s): R06.02 - Shortness of breath; R06.00 - Dyspnea, unspecified; R06.01 - Orthopnea (3) CHF (congestive heart failure) Code(s): I50.9 - HEART FAILURE, UNSPECIFIED (4) Acute exacerbation of chronic obstructive airways disease Code(s): J44.1 - CHRONIC OBSTRUCTIVE PULMONARY DISEASE W (ACUTE) EXACERBATION (5) Pleural effusion Code(s): J90 - PLEURAL EFFUSION, NOT ELSEWHERE CLASSIFIED (6) Anemia Code(s): D64.9 - ANEMIA, UNSPECIFIED (7) CKD (chronic kidney disease) Code(s): N18.9 - CHRONIC KIDNEY DISEASE, UNSPECIFIED Qualifiers: Chronic kidney disease stage: stage 3 (moderate) Qualified Code(s): N18.3 - Chronic kidney disease, stage 3 (moderate) (8) H/O malignant neoplasm of breast Code(s): Z85.3 - PERSONAL HISTORY OF MALIGNANT NEOPLASM OF BREAST Assessment/Plan 1. Acute exacerbation of COPD improved 2. Diastolic left ventricular dysfunction with clinical class I NYHA classification LV failure 3. CAD with demand ischemia 4. hypothyroidism 5. Acute on CKD 6. History of breast CA PLAN: 1. Continue IV Steroids eventually to be switched to PO, bronchodilators and supplemental O2 2. Continue to observe off of diuretics pending renal function recovery 3. Continue Amlodipine 4. Continue Bystolic with caution 5. ECG to check current rhythm Further plan are to follow Yoel Easton MD
[2018-09-29] MEDS ORDERED: HEPARIN NA (PORCINE) 5,000 UNITS/ML 1ML VIAL IVPUSH PRN ×2 (10:21)
[2018-09-29 11:16] LABS: HEMATOCRIT 28.5 % (32.4-45.2); HEMOGLOBIN 9.5 GM/dL (10.7-15.3); LYMPH % 5.3 % (8-40); MCH 28.7 pg (25.7-33.7); MCHC 33.2 g/dl (32.0-36.0); MEAN CELL VOLUME 86.5 fl (80-96); MEAN PLT VOLUME 8.1 fl (7.5-11.1); MONO % 3.1 % (3.8-10.2); NEUT % 91.6 % (42.8-82.8); PLATELET COUNT 408 K/MM3 (134-434); RDW 16.1 % (11.6-15.6); WHITE BLOOD COUNT 12.8 K/mm3 (4.0-10.0)
[2018-09-29 11:47] LABS: ALBUMIN 2.7 g/dl (3.4-5.0); ALK PHOS 57 U/L (45-117); ANION GAP 9 MMOL/L (8-16); BILIRUBIN,TOTAL 0.2 mg/dL (0.2-1); BLOOD UREA NITROGEN 96 mg/dL (7-18); CHLORIDE 103 mmol/L (98-107); CO2 29 mmol/L (21-32); CREATININE 2.9 mg/dL (0.55-1.3); GLUCOSE,RANDOM 140 mg/dL (74-106); SGOT/AST 11 U/L (15-37); SGPT/ALT 18 U/L (13-61); SODIUM 140 mmol/L (136-145)
[2018-09-29] MEDS: HEPARIN INFUSION - 25,000 UNITS/500 ML INFUS.BAG IVPB SCH (11:53)
[2018-09-29 11:54] LABS: ANISOCYTOSIS 0; MACROCYTOSIS 0; PLATELET ESTIMATE NORMAL
--- NOTE | 2018-09-29 12:01 | PN ---
Progress Note, Physician History of Present Illness: Pt seen and examined at bedside. She is awake and alert. She denies shortness of breath. - Current Medication List Current Medications: Active Medications Albuterol Sulfate (Ventolin 0.083% Nebulizer Soln -) 1 amp NEB Q1H PRN PRN Reason: SHORT OF BREATH/WHEEZING Albuterol/Ipratropium (Duoneb -) 1 amp NEB RQID [facility] Last Admin: 09/29/18 08:30 Dose: 1 amp Allopurinol (Zyloprim -) 100 mg PO DAILY [facility] Last Admin: 09/29/18 09:39 Dose: 100 mg Amlodipine Besylate (Norvasc -) 5 mg PO DAILY [facility] Last Admin: 09/29/18 09:39 Dose: 5 mg Budesonide/Formoterol Fumarate (Symbicort 160/4.5mcg -) 2 puff IH BID [facility] Last Admin: 09/29/18 09:41 Dose: 2 puff Guaifenesin (Robitussin -) 10 ml PO Q6H PRN PRN Reason: COUGH Last Admin: 09/26/18 09:45 Dose: 10 ml Heparin Sodium (Porcine) (Heparin -) 1,000 unit IVPUSH PRN PRN PRN Reason: Heparin Heparin Sodium (Porcine) (Heparin -) 5,000 unit IVPUSH PRN PRN PRN Reason: Heparin Heparin Sodium/Dextrose (Heparin Infusion -) 25,000 units in 500 mls @ 20 mls/ hr IVPB TITR [facility]; Protocol Last Admin: 09/29/18 11:53 Dose: 1,000 units/hr, 20 mls/hr Levothyroxine Sodium (Synthroid -) 75 mcg PO ACBK [facility] Last Admin: 09/29/18 06:53 Dose: 75 mcg Methylprednisolone Sodium Succinate (Solu-Medrol -) 40 mg IVPUSH Q6H-IV [facility] Last Admin: 09/29/18 09:38 Dose: 40 mg Nebivolol (Bystolic -) 5 mg PO DAILY [facility] - Objective Vital Signs: Vital Signs Temperature 98 F 09/29/18 10:00 Pulse Rate 90 09/29/18 10:00 Respiratory Rate 18 09/29/18 10:00 Blood Pressure 126/64 09/29/18 10:00 O2 Sat by Pulse Oximetry (%) 96 09/28/18 21:00 Constitutional: Yes: Calm Eyes: Yes: Conjunctiva Clear HENT: Yes: Atraumatic Cardiovascular: Yes: S1, S2 Respiratory: Yes: On Nasal O2, Wheezes Gastrointestinal: Yes: Soft Genitourinary: Yes: WNL Musculoskeletal: Yes: WNL Edema: No Neurological: Yes: Oriented Psychiatric: Yes: Oriented Labs: CBC, BMP 09/29/18 10:55 09/29/18 10:55 INR, PTT INR 0.97 (0.83-1.09) 09/23/18 11:29 Problem List - Problems (1) Acute exacerbation of chronic obstructive airways disease Code(s): J44.1 - CHRONIC OBSTRUCTIVE PULMONARY DISEASE W (ACUTE) EXACERBATION (2) CKD (chronic kidney disease) Code(s): N18.9 - CHRONIC KIDNEY DISEASE, UNSPECIFIED Qualifiers: Chronic kidney disease stage: stage 3 (moderate) Qualified Code(s): N18.3 - Chronic kidney disease, stage 3 (moderate) Assessment/Plan Current Medications Generic Name Dose Route Start Last Admin Trade Name Freq PRN Reason Stop Dose Admin Albuterol Sulfate 1 amp 09/27/18 10:42 Ventolin 0.083% Nebulizer Soln - NEB Q1H PRN SHORT OF BREATH/WHEEZING Albuterol/Ipratropium 1 amp 09/24/18 12:00 09/29/18 08:30 Duoneb - NEB 1 amp RQID [facility] Administration Allopurinol 100 mg 09/24/18 10:00 09/29/18 09:39 Zyloprim - PO 100 mg DAILY [facility] Administration Amlodipine Besylate 5 mg 09/26/18 10:38 09/29/18 09:39 Norvasc - PO 5 mg DAILY [facility] Administration Budesonide/Formoterol Fumarate 2 puff 09/23/18 22:00 09/29/18 09:41 Symbicort 160/4.5mcg - IH 2 puff BID [facility] Administration Guaifenesin 10 ml 09/24/18 18:25 09/26/18 09:45 Robitussin - PO 10 ml Q6H PRN Administration COUGH Heparin Sodium (Porcine) 1,000 unit 09/29/18 10:21 Heparin - IVPUSH PRN PRN Heparin Heparin Sodium (Porcine) 5,000 unit 09/29/18 10:21 Heparin - IVPUSH PRN PRN Heparin Heparin Sodium/Dextrose 25,000 units in 500 mls @ 20 mls/hr 09/29/18 10:30 11:53 Heparin Infusion - IVPB 1,000 units/hr TITR [facility] 20 mls/hr Administration Protocol 1,000 UNITS/HR Levothyroxine Sodium 75 mcg 09/24/18 07:00 09/29/18 06:53 Synthroid - PO 75 mcg ACBK [facility] Administration Methylprednisolone Sodium Succinate 40 mg 09/27/18 10:45 09/29/18 09:38 Solu-Medrol - IVPUSH 40 mg Q6H-IV [facility] Administration Nebivolol 5 mg 09/29/18 10:30 Bystolic - PO DAILY [facility] Impression 1. CKD 2. hypothyroidism 3. breast cancer 4. pleural effusion 5. gout 6. asthma 7. liver disease 8. copd 9. 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
--- NOTE | 2018-09-29 12:13 | EKG ---
Test Reason : Blood Pressure : / mmHG Vent. Rate : 081 BPM Atrial Rate : 214 BPM P-R Int : 000 ms QRS Dur : 182 ms QT Int : 400 ms P-R-T Axes : 000 -63 -29 degrees QTc Int : 464 ms ATRIAL FIBRILLATION WITH PREMATURE VENTRICULAR OR ABERRANTLY CONDUCTED COMPLEXES RIGHT BUNDLE BRANCH BLOCK LEFT ANTERIOR FASCICULAR BLOCK BIFASCICULAR BLOCK MINIMAL VOLTAGE CRITERIA FOR LVH, MAY BE NORMAL VARIANT SEPTAL INFARCT (CITED ON OR BEFORE 24-SEP-2018) T WAVE ABNORMALITY, CONSIDER LATERAL ISCHEMIA ABNORMAL ECG WHEN COMPARED WITH ECG OF 24-SEP-2018 15:35, ATRIAL FIBRILLATION HAS REPLACED SINUS RHYTHM SERIAL CHANGES OF SEPTAL INFARCT PRESENT Confirmed by MD NELSON, RICKY ([id number]) on 09/29/2018 12:13:16 PM Referred By: Mike AGUILAR Confirmed By:RICKY DAMON MD
--- NOTE | 2018-09-29 13:27 | PN ---
Progress Note, Physician History of Present Illness: events noted - Current Medication List Current Medications: Active Medications Albuterol Sulfate (Ventolin 0.083% Nebulizer Soln -) 1 amp NEB Q1H PRN PRN Reason: SHORT OF BREATH/WHEEZING Albuterol/Ipratropium (Duoneb -) 1 amp NEB RQID [facility] Last Admin: 09/29/18 08:30 Dose: 1 amp Allopurinol (Zyloprim -) 100 mg PO DAILY [facility] Last Admin: 09/29/18 09:39 Dose: 100 mg Amlodipine Besylate (Norvasc -) 5 mg PO DAILY [facility] Last Admin: 09/29/18 09:39 Dose: 5 mg Budesonide/Formoterol Fumarate (Symbicort 160/4.5mcg -) 2 puff IH BID [facility] Last Admin: 09/29/18 09:41 Dose: 2 puff Guaifenesin (Robitussin -) 10 ml PO Q6H PRN PRN Reason: COUGH Last Admin: 09/26/18 09:45 Dose: 10 ml Heparin Sodium (Porcine) (Heparin -) 1,000 unit IVPUSH PRN PRN PRN Reason: Heparin Heparin Sodium (Porcine) (Heparin -) 5,000 unit IVPUSH PRN PRN PRN Reason: Heparin Heparin Sodium/Dextrose (Heparin Infusion -) 25,000 units in 500 mls @ 20 mls/ hr IVPB TITR [facility]; Protocol Last Admin: 09/29/18 11:53 Dose: 1,000 units/hr, 20 mls/hr Levothyroxine Sodium (Synthroid -) 75 mcg PO ACBK [facility] Last Admin: 09/29/18 06:53 Dose: 75 mcg Methylprednisolone Sodium Succinate (Solu-Medrol -) 40 mg IVPUSH Q6H-IV [facility] Last Admin: 09/29/18 09:38 Dose: 40 mg Nebivolol (Bystolic -) 5 mg PO DAILY [facility] - Objective Vital Signs: Vital Signs Temperature 98 F 09/29/18 10:00 Pulse Rate 90 09/29/18 10:00 Respiratory Rate 18 09/29/18 10:00 Blood Pressure 126/64 09/29/18 10:00 O2 Sat by Pulse Oximetry (%) 98 09/29/18 09:00 Constitutional: Yes: No Distress HENT: Yes: Atraumatic Neck: Yes: Supple Cardiovascular: Yes: Pulse Irregular Respiratory: Yes: CTA Bilaterally Gastrointestinal: Yes: Normal Bowel Sounds Extremities: Yes: WNL Edema: No Peripheral Pulses WNL: Yes Neurological: Yes: Alert, Oriented Labs: CBC, BMP 09/29/18 10:55 09/29/18 10:55 INR, PTT INR 0.97 (0.83-1.09) 09/23/18 11:29 Problem List - Problems (1) Cough Assessment/Plan: prn cough syrup Code(s): R05 - COUGH (2) Pleural effusion Code(s): J90 - PLEURAL EFFUSION, NOT ELSEWHERE CLASSIFIED (3) Pneumonia Assessment/Plan: abx per id ...completed Code(s): J18.9 - PNEUMONIA, UNSPECIFIED ORGANISM (4) Asthma Assessment/Plan: on steroids duo nebs Code(s): J45.909 - UNSPECIFIED ASTHMA, UNCOMPLICATED (5) CKD (chronic kidney disease) Assessment/Plan: monitor Code(s): N18.9 - CHRONIC KIDNEY DISEASE, UNSPECIFIED Qualifiers: Chronic kidney disease stage: stage 3 (moderate) Qualified Code(s): N18.3 - Chronic kidney disease, stage 3 (moderate) (6) H/O malignant neoplasm of breast Code(s): Z85.3 - PERSONAL HISTORY OF MALIGNANT NEOPLASM OF BREAST (7) A-fib Assessment/Plan: on iv heparin per cardiology Code(s): I48.91 - UNSPECIFIED ATRIAL FIBRILLATION Qualifiers: Atrial fibrillation type: paroxysmal Qualified Code(s): I48.0 - Paroxysmal atrial fibrillation
--- NOTE | 2018-09-29 14:05 | PN ---
Progress Note (short form) - Note Progress Note: PULMONARY States breathing is improving. Less cough and wheezing. Noted to be in atrial fibrillation, started on heparin gtt. Vital Signs Period Temp Pulse Resp BP Sys/Trevino Pulse Ox Last 24 Hr 97.6 F-98.3 F 82-90 18-20 120-141/57-76 96-98 Gen: NAD in chair Heart: RRR Lung: scattered rhonchi, wheezes Abd: soft, nontender Ext: distal edema CBC, BMP 09/29/18 10:55 09/29/18 10:55 Active Medications Albuterol Sulfate (Ventolin 0.083% Nebulizer Soln -) 1 amp NEB Q1H PRN PRN Reason: SHORT OF BREATH/WHEEZING Albuterol/Ipratropium (Duoneb -) 1 amp NEB RQID [facility] Last Admin: 09/29/18 08:30 Dose: 1 amp Allopurinol (Zyloprim -) 100 mg PO DAILY [facility] Last Admin: 09/29/18 09:39 Dose: 100 mg Amlodipine Besylate (Norvasc -) 5 mg PO DAILY [facility] Last Admin: 09/29/18 09:39 Dose: 5 mg Budesonide/Formoterol Fumarate (Symbicort 160/4.5mcg -) 2 puff IH BID [facility] Last Admin: 09/29/18 09:41 Dose: 2 puff Guaifenesin (Robitussin -) 10 ml PO Q6H PRN PRN Reason: COUGH Last Admin: 09/26/18 09:45 Dose: 10 ml Heparin Sodium (Porcine) (Heparin -) 1,000 unit IVPUSH PRN PRN PRN Reason: Heparin Heparin Sodium (Porcine) (Heparin -) 5,000 unit IVPUSH PRN PRN PRN Reason: Heparin Heparin Sodium/Dextrose (Heparin Infusion -) 25,000 units in 500 mls @ 20 mls/ hr IVPB TITR [facility]; Protocol Last Admin: 09/29/18 11:53 Dose: 1,000 units/hr, 20 mls/hr Levothyroxine Sodium (Synthroid -) 75 mcg PO ACBK [facility] Last Admin: 09/29/18 06:53 Dose: 75 mcg Methylprednisolone Sodium Succinate (Solu-Medrol -) 40 mg IVPUSH Q6H-IV [facility] Last Admin: 01/29/19 09:38 Dose: 40 mg Nebivolol (Bystolic -) 5 mg PO DAILY [facility] A/P Acute COPD Exacerbation LV Diastolic Dysfunction Atrial Fibrillation CAD Acute on Chronic Renal Failure Hypothyroidism h/o Breast Ca - will decrease medrol to q8h - inhaled bronchodilators, will change to atrovent standing given new onset atrial fibrillation - O2 to keep SpO2 >90% - rate control - continue anticoagulation
[2018-09-29] MEDS ORDERED: ALBUTEROL SO4 0.042% IH SOL 1.25 MG/3 ML VIAL.NEB NEB PRN (14:06)
--- NOTE | 2018-09-29 14:18 | PN ---
Progress Note, Physician History of Present Illness: patient had some breathing difficulty now stable - Current Medication List Current Medications: Active Medications Albuterol Sulfate (Ventolin 0.042trength) -) 1 amp NEB Q4H PRN PRN Reason: SHORT OF BREATH/WHEEZING Allopurinol (Zyloprim -) 100 mg PO DAILY [facility] Last Admin: 09/29/18 09:39 Dose: 100 mg Amlodipine Besylate (Norvasc -) 5 mg PO DAILY [facility] Last Admin: 09/29/18 09:39 Dose: 5 mg Budesonide/Formoterol Fumarate (Symbicort 160/4.5mcg -) 2 puff IH BID [facility] Last Admin: 09/29/18 09:41 Dose: 2 puff Guaifenesin (Robitussin -) 10 ml PO Q6H PRN PRN Reason: COUGH Last Admin: 09/26/18 09:45 Dose: 10 ml Heparin Sodium (Porcine) (Heparin -) 1,000 unit IVPUSH PRN PRN PRN Reason: Heparin Heparin Sodium (Porcine) (Heparin -) 5,000 unit IVPUSH PRN PRN PRN Reason: Heparin Heparin Sodium/Dextrose (Heparin Infusion -) 25,000 units in 500 mls @ 20 mls/ hr IVPB TITR [facility]; Protocol Last Admin: 09/29/18 11:53 Dose: 1,000 units/hr, 20 mls/hr Ipratropium [place] (Atrovent 0.02% Nebulizer -) 1 amp NEB RQID [facility] Levothyroxine Sodium (Synthroid -) 75 mcg PO ACBK [facility] Last Admin: 09/29/18 06:53 Dose: 75 mcg Methylprednisolone Sodium Succinate (Solu-Medrol -) 40 mg IVPUSH Q8H-IV [facility] Nebivolol (Bystolic -) 5 mg PO DAILY [facility] - Objective Vital Signs: Vital Signs Temperature 98 F 09/29/18 10:00 Pulse Rate 90 09/29/18 10:00 Respiratory Rate 18 09/29/18 10:00 Blood Pressure 126/64 09/29/18 10:00 O2 Sat by Pulse Oximetry (%) 98 09/29/18 09:00 Constitutional: Yes: Calm, Mild Distress Cardiovascular: Yes: Regular Rate and Rhythm Respiratory: Yes: Regular, Poor Air Entry, Wheezes Gastrointestinal: Yes: Normal Bowel Sounds, Soft Musculoskeletal: Yes: WNL Extremities: Yes: WNL Neurological: Yes: Alert, Oriented Psychiatric: Yes: Alert, Oriented Labs: CBC, BMP 09/29/18 10:55 09/29/18 10:55 INR, PTT INR 0.97 (0.83-1.09) 09/23/18 11:29 Assessment/Plan Problem List - Problems (1) Diastolic dysfunction Code(s): I51.9 - HEART DISEASE, UNSPECIFIED (2) Acute exacerbation of chronic obstructive airways disease Code(s): J44.1 - CHRONIC OBSTRUCTIVE PULMONARY DISEASE W (ACUTE) EXACERBATION (3) Dyspnea Code(s): R06.00 - DYSPNEA, UNSPECIFIED Qualifiers: Dyspnea type: shortness of breath Qualified Code(s): R06.02 - Shortness of breath; R06.00 - Dyspnea, unspecified; R06.01 - Orthopnea (4) HTN (hypertension) Code(s): I10 - ESSENTIAL (PRIMARY) HYPERTENSION Qualifiers: Hypertension type: essential hypertension Qualified Code(s): I10 - Essential (primary) hypertension (5) Pleural effusion Code(s): J90 - PLEURAL EFFUSION, NOT ELSEWHERE CLASSIFIED (6) CKD (chronic kidney disease) Code(s): N18.9 - CHRONIC KIDNEY DISEASE, UNSPECIFIED Qualifiers: Chronic kidney disease stage: stage 3 (moderate) Qualified Code(s): N18.3 - Chronic kidney disease, stage 3 (moderate) plan continue resp support incentive mary patient doing well rest as per the team
[2018-09-29] MEDS: IPRATROPIUM BR 0.02% 0.5 MG/2.5 ML VIAL.NEB. NEB SCH ×2 (17:04→20:31)
[2018-09-30] MEDS: methylPREDNISolone NA SUCC 40 MG/1 ML VIAL IVPUSH SCH ×3 (02:42→22:30)
[2018-09-30] MEDS: LEVOTHYROXINE NA 75 MCG TABLET (FP) PO SCH (06:44)
[2018-09-30] MEDS: IPRATROPIUM BR 0.02% 0.5 MG/2.5 ML VIAL.NEB. NEB SCH ×4 (08:25→20:47)
[2018-09-30] MEDS: amLODIPine BESYLATE 5 MG TABLET (FP) PO SCH (09:36)
[2018-09-30] MEDS: ALLOPURINOL 100 MG TABLET (FP) PO SCH (09:36)
[2018-09-30] MEDS: NEBIVOLOL 5 MG TABLET (FP) PO SCH (09:36)
[2018-09-30] MEDS: HEPARIN INFUSION - 25,000 UNITS/500 ML INFUS.BAG IVPB SCH (09:36)
[2018-09-30] MEDS: BUDESONIDE/FORMETEROL FUMARATE 160/4.5 mcg INHALER IH SCH ×2 (09:38→22:34)
--- NOTE | 2018-09-30 10:38 | PN ---
Progress Note, Physician History of Present Illness: PULMONARY ALERT,COMFORTABLE,LESS WHEEZES,LOWE IMPROVING - Current Medication List Current Medications: Active Medications Albuterol Sulfate (Ventolin 0.042trength) -) 1 amp NEB Q4H PRN PRN Reason: SHORT OF BREATH/WHEEZING Allopurinol (Zyloprim -) 100 mg PO DAILY [facility] Last Admin: 09/30/18 09:36 Dose: 100 mg Amlodipine Besylate (Norvasc -) 5 mg PO DAILY [facility] Last Admin: 09/30/18 09:36 Dose: 5 mg Budesonide/Formoterol Fumarate (Symbicort 160/4.5mcg -) 2 puff IH BID [facility] Last Admin: 09/30/18 09:38 Dose: 2 puff Guaifenesin (Robitussin -) 10 ml PO Q6H PRN PRN Reason: COUGH Last Admin: 09/26/18 09:45 Dose: 10 ml Heparin Sodium (Porcine) (Heparin -) 1,000 unit IVPUSH PRN PRN PRN Reason: Heparin Heparin Sodium (Porcine) (Heparin -) 5,000 unit IVPUSH PRN PRN PRN Reason: Heparin Heparin Sodium/Dextrose (Heparin Infusion -) 25,000 units in 500 mls @ 20 mls/ hr IVPB TITR [facility]; Protocol Last Admin: 09/30/18 09:36 Dose: 1,000 units/hr, 20 mls/hr Ipratropium [place] (Atrovent 0.02% Nebulizer -) 1 amp NEB RQID [facility] Last Admin: 09/30/18 08:25 Dose: 1 amp Levothyroxine Sodium (Synthroid -) 75 mcg PO ACBK [facility] Last Admin: 09/30/18 06:44 Dose: 75 mcg Methylprednisolone Sodium Succinate (Solu-Medrol -) 40 mg IVPUSH Q8H-IV [facility] Last Admin: 09/30/18 09:36 Dose: 40 mg Nebivolol (Bystolic -) 5 mg PO DAILY [facility] Last Admin: 09/30/18 09:36 Dose: 5 mg - Objective Vital Signs: Vital Signs Temperature 97.9 F 09/30/18 06:44 Pulse Rate 93 H 09/30/18 06:44 Respiratory Rate 18 09/30/18 06:44 Blood Pressure 110/62 09/30/18 06:44 O2 Sat by Pulse Oximetry (%) 99 09/29/18 20:51 Constitutional: Yes: Well Nourished, Calm Eyes: Yes: WNL HENT: Yes: WNL Neck: Yes: WNL Cardiovascular: Yes: Pulse Irregular, S1, S2 Respiratory: Yes: Wheezes (SCATTERED ANA WHEEZES) Gastrointestinal: Yes: Normal Bowel Sounds, Soft Extremities: Yes: WNL Edema: No Labs: CBC, BMP 09/29/18 10:55 09/29/18 10:55 INR, PTT INR 0.97 (0.83-1.09) 09/23/18 11:29 Assessment/Plan roblem List - Problems (1) Acute exacerbation of chronic obstructive airways disease Code(s): J44.1 - CHRONIC OBSTRUCTIVE PULMONARY DISEASE W (ACUTE) EXACERBATION (2) Cough Code(s): R05 - COUGH (3) Pleural effusion Code(s): J90 - PLEURAL EFFUSION, NOT ELSEWHERE CLASSIFIED (4) Allergy to multiple antibiotics Code(s): Z88.1 - ALLERGY STATUS TO OTHER ANTIBIOTIC AGENTS STATUS (5) Asthma Code(s): J45.909 - UNSPECIFIED ASTHMA, UNCOMPLICATED (6) CKD (chronic kidney disease) Code(s): N18.9 - CHRONIC KIDNEY DISEASE, UNSPECIFIED (7) Gout Code(s): M10.9 - GOUT, UNSPECIFIED (8) H/O malignant neoplasm of breast Code(s): Z85.3 - PERSONAL HISTORY OF MALIGNANT NEOPLASM OF BREAST 9 ACUTE ON CHRONIC KIDNEY INJURY 10 Left pleural effusion 11 AFIB Medrol q 8h BD TX O2 Will need outpatient imaging followup No smoking discussed Monitor lytes,renal function heparin DR GAINES
--- NOTE | 2018-09-30 11:33 | PN ---
Progress Note, Physician History of Present Illness: Dyspnea and wheeze improving with BD and steroid therapies. PAF->SR. - Current Medication List Current Medications: Active Medications Albuterol Sulfate (Ventolin 0.042trength) -) 1 amp NEB Q4H PRN PRN Reason: SHORT OF BREATH/WHEEZING Allopurinol (Zyloprim -) 100 mg PO DAILY [facility] Last Admin: 09/30/18 09:36 Dose: 100 mg Amlodipine Besylate (Norvasc -) 5 mg PO DAILY [facility] Last Admin: 09/30/18 09:36 Dose: 5 mg Budesonide/Formoterol Fumarate (Symbicort 160/4.5mcg -) 2 puff IH BID [facility] Last Admin: 09/30/18 09:38 Dose: 2 puff Guaifenesin (Robitussin -) 10 ml PO Q6H PRN PRN Reason: COUGH Last Admin: 09/26/18 09:45 Dose: 10 ml Heparin Sodium (Porcine) (Heparin -) 1,000 unit IVPUSH PRN PRN PRN Reason: Heparin Heparin Sodium (Porcine) (Heparin -) 5,000 unit IVPUSH PRN PRN PRN Reason: Heparin Heparin Sodium/Dextrose (Heparin Infusion -) 25,000 units in 500 mls @ 20 mls/ hr IVPB TITR KASSIDY; Protocol Last Admin: 09/30/18 09:36 Dose: 1,000 units/hr, 20 mls/hr Ipratropium [place] (Atrovent 0.02% Nebulizer -) 1 amp NEB RQID [facility] Last Admin: 09/30/18 08:25 Dose: 1 amp Levothyroxine Sodium (Synthroid -) 75 mcg PO ACBK [facility] Last Admin: 09/30/18 06:44 Dose: 75 mcg Methylprednisolone Sodium Succinate (Solu-Medrol -) 40 mg IVPUSH Q8H-IV [facility] Last Admin: 09/30/18 09:36 Dose: 40 mg Nebivolol (Bystolic -) 5 mg PO DAILY [facility] Last Admin: 09/30/18 09:36 Dose: 5 mg - Objective Vital Signs: Vital Signs Temperature 98 F 09/30/18 10:00 Pulse Rate 90 09/30/18 10:00 Respiratory Rate 20 09/30/18 10:00 Blood Pressure 116/64 09/30/18 10:00 O2 Sat by Pulse Oximetry (%) 99 01/29/19 20:51 Constitutional: Yes: No Distress, Calm Neck: Yes: Supple Cardiovascular: Yes: Regular Rate and Rhythm Respiratory: Yes: Regular, Diminished, On Nasal O2 Gastrointestinal: Yes: Normal Bowel Sounds, Soft Edema: No Labs: CBC, BMP 09/29/18 10:55 09/29/18 10:55 INR, PTT INR 0.97 (0.83-1.09) 09/23/18 11:29 - ....Imaging EKG: Report Reviewed (Afib @ 81 PVC -> NSR) Problem List - Problems (1) Diastolic dysfunction Code(s): I51.9 - HEART DISEASE, UNSPECIFIED (2) Acute exacerbation of chronic obstructive airways disease Code(s): J44.1 - CHRONIC OBSTRUCTIVE PULMONARY DISEASE W (ACUTE) EXACERBATION (3) Dyspnea Code(s): R06.00 - DYSPNEA, UNSPECIFIED Qualifiers: Dyspnea type: shortness of breath Qualified Code(s): R06.02 - Shortness of breath; R06.00 - Dyspnea, unspecified; R06.01 - Orthopnea (4) HTN (hypertension) Code(s): I10 - ESSENTIAL (PRIMARY) HYPERTENSION Qualifiers: Hypertension type: essential hypertension Qualified Code(s): I10 - Essential (primary) hypertension (5) Pleural effusion Code(s): J90 - PLEURAL EFFUSION, NOT ELSEWHERE CLASSIFIED (6) CKD (chronic kidney disease) Code(s): N18.9 - CHRONIC KIDNEY DISEASE, UNSPECIFIED Qualifiers: Chronic kidney disease stage: stage 3 (moderate) Qualified Code(s): N18.3 - Chronic kidney disease, stage 3 (moderate) (7) A-fib Code(s): I48.91 - UNSPECIFIED ATRIAL FIBRILLATION Qualifiers: Atrial fibrillation type: paroxysmal Qualified Code(s): I48.0 - Paroxysmal atrial fibrillation Assessment/Plan 09/24/2018 Echo: Normal LV and RV size and fxn, tr MR, TR 1. Acute exacerbation of COPD improved 2. Diastolic left ventricular dysfunction with clinical class I NYHA classification LV failure 3. CAD with demand ischemia 4. Paroxysmal afib->NSR 4. hypothyroidism 5. Acute on CKD 6. History of breast CA PLAN: 1. Continue IV Steroids taper eventually to be switched to PO, bronchodilators and supplemental O2 2. Continue to observe off of diuretics pending renal function recovery 3. Continue Amlodipine 5 qd 4. Continue Bystolic 5 qd 5. Heparin gtt->Eliquis 5 bid
[2018-09-30] MEDS: APIXABAN 5 MG TABLET PO SCH ×2 (11:58→22:30)
--- NOTE | 2018-09-30 13:04 | PN ---
Progress Note, Physician History of Present Illness: Pt seen and examined at bedside. She is awake and alert. She denies chest pain or shortness of breath. - Current Medication List Current Medications: Active Medications Albuterol Sulfate (Ventolin 0.042trength) -) 1 amp NEB Q4H PRN PRN Reason: SHORT OF BREATH/WHEEZING Allopurinol (Zyloprim -) 100 mg PO DAILY [facility] Last Admin: 09/30/18 09:36 Dose: 100 mg Amlodipine Besylate (Norvasc -) 5 mg PO DAILY [facility] Last Admin: 09/30/18 09:36 Dose: 5 mg Apixaban (Eliquis -) 5 mg PO BID [facility] Last Admin: 09/30/18 11:58 Dose: 5 mg Budesonide/Formoterol Fumarate (Symbicort 160/4.5mcg -) 2 puff IH BID [facility] Last Admin: 09/30/18 09:38 Dose: 2 puff Guaifenesin (Robitussin -) 10 ml PO Q6H PRN PRN Reason: COUGH Last Admin: 09/26/18 09:45 Dose: 10 ml Ipratropium [place] (Atrovent 0.02% Nebulizer -) 1 amp NEB RQID [facility] Last Admin: 09/30/18 12:10 Dose: 1 amp Levothyroxine Sodium (Synthroid -) 75 mcg PO ACBK [facility] Last Admin: 09/30/18 06:44 Dose: 75 mcg Methylprednisolone Sodium Succinate (Solu-Medrol -) 40 mg IVPUSH Q8H-IV [facility] Last Admin: 09/30/18 09:36 Dose: 40 mg Nebivolol (Bystolic -) 5 mg PO DAILY [facility] Last Admin: 09/30/18 09:36 Dose: 5 mg - Objective Vital Signs: Vital Signs Temperature 98 F 09/30/18 10:00 Pulse Rate 90 09/30/18 10:00 Respiratory Rate 20 09/30/18 10:00 Blood Pressure 116/64 09/30/18 10:00 O2 Sat by Pulse Oximetry (%) 99 09/29/18 20:51 Constitutional: Yes: Calm Eyes: Yes: Conjunctiva Clear HENT: Yes: Atraumatic Cardiovascular: Yes: S1, S2 Respiratory: Yes: On Nasal O2 Gastrointestinal: Yes: Soft Musculoskeletal: Yes: WNL Edema: No Neurological: Yes: Oriented Psychiatric: Yes: Oriented Labs: CBC, BMP 09/29/18 10:55 09/29/18 10:55 INR, PTT INR 0.97 (0.83-1.09) 09/23/18 11:29 Problem List - Problems (1) Acute exacerbation of chronic obstructive airways disease Code(s): J44.1 - CHRONIC OBSTRUCTIVE PULMONARY DISEASE W (ACUTE) EXACERBATION (2) CKD (chronic kidney disease) Code(s): N18.9 - CHRONIC KIDNEY DISEASE, UNSPECIFIED Qualifiers: Chronic kidney disease stage: stage 3 (moderate) Qualified Code(s): N18.3 - Chronic kidney disease, stage 3 (moderate) Assessment/Plan Current Medications Generic Name Dose Route Start Last Admin Trade Name Freq PRN Reason Stop Dose Admin Albuterol Sulfate 1 amp 09/29/18 14:06 Ventolin 0.042trength) - NEB Q4H PRN SHORT OF BREATH/WHEEZING Allopurinol 100 mg 09/24/18 10:00 09/30/18 09:36 Zyloprim - PO 100 mg DAILY KASSIDY Administration Amlodipine Besylate 5 mg 09/26/18 10:38 09/30/18 09:36 Norvasc - PO 5 mg DAILY KASSIDY Administration Apixaban 5 mg 09/30/18 11:45 09/30/18 11:58 Eliquis - PO 5 mg BID KASSIDY Administration Budesonide/Formoterol Fumarate 2 puff 09/23/18 22:00 09/30/18 09:38 Symbicort 160/4.5mcg - IH 2 puff BID KASSIDY Administration Guaifenesin 10 ml 09/24/18 18:25 09/26/18 09:45 Robitussin - PO 10 ml Q6H PRN Administration COUGH Ipratropium [place] 1 amp 09/29/18 16:00 09/30/18 12:10 Atrovent 0.02% Nebulizer - NEB 1 amp RQID KASSIDY Administration Levothyroxine Sodium 75 mcg 09/24/18 07:00 09/30/18 06:44 Synthroid - PO 75 mcg ACBK KASSIDY Administration Methylprednisolone Sodium Succinate 40 mg 09/29/18 18:00 09/30/18 09:36 Solu-Medrol - IVPUSH 40 mg Q8H-IV KASSIDY Administration Nebivolol 5 mg 09/29/18 10:30 09/30/18 09:36 Bystolic - PO 5 mg DAILY KASSIDY Administration Impression 1. CKD 2. hypothyroidism 3. breast cancer 4. pleural effusion 5. gout 6. asthma 7. liver disease 8. copd 9. asthma 10. a-fib Plan - cont to monitor renal function - on heparin for a-fib - cont to observe - low potassium diet - will start arb once renal function stabilizes, likely as outpt - follow urine prt to doctor of nurse anesthesia practice ratio - avoid nsaids
--- NOTE | 2018-09-30 14:28 | PN ---
Progress Note, Physician History of Present Illness: no new issues doing well - Current Medication List Current Medications: Active Medications Albuterol Sulfate (Ventolin 0.042trength) -) 1 amp NEB Q4H PRN PRN Reason: SHORT OF BREATH/WHEEZING Allopurinol (Zyloprim -) 100 mg PO DAILY [facility] Last Admin: 09/30/18 09:36 Dose: 100 mg Amlodipine Besylate (Norvasc -) 5 mg PO DAILY [facility] Last Admin: 09/30/18 09:36 Dose: 5 mg Apixaban (Eliquis -) 5 mg PO BID [facility] Last Admin: 09/30/18 11:58 Dose: 5 mg Budesonide/Formoterol Fumarate (Symbicort 160/4.5mcg -) 2 puff IH BID [facility] Last Admin: 09/30/18 09:38 Dose: 2 puff Guaifenesin (Robitussin -) 10 ml PO Q6H PRN PRN Reason: COUGH Last Admin: 09/26/18 09:45 Dose: 10 ml Ipratropium [place] (Atrovent 0.02% Nebulizer -) 1 amp NEB RQID [facility] Last Admin: 09/30/18 12:10 Dose: 1 amp Levothyroxine Sodium (Synthroid -) 75 mcg PO ACBK [facility] Last Admin: 09/30/18 06:44 Dose: 75 mcg Methylprednisolone Sodium Succinate (Solu-Medrol -) 40 mg IVPUSH Q8H-IV [facility] Last Admin: 09/30/18 09:36 Dose: 40 mg Nebivolol (Bystolic -) 5 mg PO DAILY [facility] Last Admin: 09/30/18 09:36 Dose: 5 mg - Objective Vital Signs: Vital Signs Temperature 98.0 F 09/30/18 14:00 Pulse Rate 92 H 09/30/18 14:00 Respiratory Rate 20 09/30/18 10:00 Blood Pressure 128/68 09/30/18 14:00 O2 Sat by Pulse Oximetry (%) 99 09/29/18 20:51 Constitutional: Yes: No Distress, Calm Cardiovascular: Yes: Regular Rate and Rhythm Respiratory: Yes: Regular, Poor Air Entry Gastrointestinal: Yes: Normal Bowel Sounds, Soft Musculoskeletal: Yes: WNL Extremities: Yes: WNL Neurological: Yes: Alert, Oriented Psychiatric: Yes: Alert, Oriented Labs: CBC, BMP 09/29/18 10:55 09/29/18 10:55 INR, PTT INR 0.97 (0.83-1.09) 09/23/18 11:29 Assessment/Plan Problem List - Problems (1) Diastolic dysfunction Code(s): I51.9 - HEART DISEASE, UNSPECIFIED (2) Acute exacerbation of chronic obstructive airways disease Code(s): J44.1 - CHRONIC OBSTRUCTIVE PULMONARY DISEASE W (ACUTE) EXACERBATION (3) Dyspnea Code(s): R06.00 - DYSPNEA, UNSPECIFIED Qualifiers: Dyspnea type: shortness of breath Qualified Code(s): R06.02 - Shortness of breath; R06.00 - Dyspnea, unspecified; R06.01 - Orthopnea (4) HTN (hypertension) Code(s): I10 - ESSENTIAL (PRIMARY) HYPERTENSION Qualifiers: Hypertension type: essential hypertension Qualified Code(s): I10 - Essential (primary) hypertension (5) Pleural effusion Code(s): J90 - PLEURAL EFFUSION, NOT ELSEWHERE CLASSIFIED (6) CKD (chronic kidney disease) Code(s): N18.9 - CHRONIC KIDNEY DISEASE, UNSPECIFIED Qualifiers: Chronic kidney disease stage: stage 3 (moderate) Qualified Code(s): N18.3 - Chronic kidney disease, stage 3 (moderate) plan continue resp support incentive mary patient doing well rest as per the team
--- NOTE | 2018-09-30 15:41 | PN ---
Progress Note, Physician History of Present Illness: events noted - Current Medication List Current Medications: Active Medications Albuterol Sulfate (Ventolin 0.042trength) -) 1 amp NEB Q4H PRN PRN Reason: SHORT OF BREATH/WHEEZING Allopurinol (Zyloprim -) 100 mg PO DAILY [facility] Last Admin: 09/30/18 09:36 Dose: 100 mg Amlodipine Besylate (Norvasc -) 5 mg PO DAILY [facility] Last Admin: 09/30/18 09:36 Dose: 5 mg Apixaban (Eliquis -) 5 mg PO BID [facility] Last Admin: 09/30/18 11:58 Dose: 5 mg Budesonide/Formoterol Fumarate (Symbicort 160/4.5mcg -) 2 puff IH BID [facility] Last Admin: 09/30/18 09:38 Dose: 2 puff Guaifenesin (Robitussin -) 10 ml PO Q6H PRN PRN Reason: COUGH Last Admin: 09/26/18 09:45 Dose: 10 ml Ipratropium [place] (Atrovent 0.02% Nebulizer -) 1 amp NEB RQID [facility] Last Admin: 09/30/18 12:10 Dose: 1 amp Levothyroxine Sodium (Synthroid -) 75 mcg PO ACBK [facility] Last Admin: 09/30/18 06:44 Dose: 75 mcg Methylprednisolone Sodium Succinate (Solu-Medrol -) 40 mg IVPUSH BID [facility] Nebivolol (Bystolic -) 5 mg PO DAILY [facility] Last Admin: 09/30/18 09:36 Dose: 5 mg - Objective Vital Signs: Vital Signs Temperature 98.0 F 09/30/18 14:00 Pulse Rate 92 H 09/30/18 14:00 Respiratory Rate 09/30/18 10:00 Blood Pressure 128/68 09/30/18 14:00 O2 Sat by Pulse Oximetry (%) 99 09/29/18 20:51 Constitutional: Yes: No Distress HENT: Yes: Atraumatic Neck: Yes: Supple Cardiovascular: Yes: Regular Rate and Rhythm Respiratory: Yes: CTA Bilaterally Gastrointestinal: Yes: Normal Bowel Sounds Extremities: Yes: WNL Edema: No Peripheral Pulses WNL: Yes Neurological: Yes: Alert, Oriented Labs: CBC, BMP 09/29/18 10:55 09/29/18 10:55 INR, PTT INR 0.97 (0.83-1.09) 09/23/18 11:29 Problem List - Problems (1) Cough Assessment/Plan: prn cough syrup Code(s): R05 - COUGH (2) Pleural effusion Code(s): J90 - PLEURAL EFFUSION, NOT ELSEWHERE CLASSIFIED (3) Pneumonia Assessment/Plan: abx per id ...completed Code(s): J18.9 - PNEUMONIA, UNSPECIFIED ORGANISM (4) Asthma Assessment/Plan: on steroids duo nebs Code(s): J45.909 - UNSPECIFIED ASTHMA, UNCOMPLICATED (5) CKD (chronic kidney disease) Assessment/Plan: monitor Code(s): N18.9 - CHRONIC KIDNEY DISEASE, UNSPECIFIED Qualifiers: Chronic kidney disease stage: stage 3 (moderate) Qualified Code(s): N18.3 - Chronic kidney disease, stage 3 (moderate) (6) H/O malignant neoplasm of breast Code(s): Z85.3 - PERSONAL HISTORY OF MALIGNANT NEOPLASM OF BREAST (7) A-fib Assessment/Plan: on eliquis now Code(s): I48.91 - UNSPECIFIED ATRIAL FIBRILLATION Qualifiers: Atrial fibrillation type: paroxysmal Qualified Code(s): I48.0 - Paroxysmal atrial fibrillation
[2018-10-01 06:21] LABS: HEMOGLOBIN 10.1 GM/dL (10.7-15.3); MCH 29.1 pg (25.7-33.7); MCHC 33.6 g/dl (32.0-36.0); MEAN CELL VOLUME 86.7 fl (80-96); PLATELET COUNT 454 K/MM3 (134-434); RBC 3.46 M/mm3 (3.60-5.2); RDW 16.2 % (11.6-15.6); WHITE BLOOD COUNT 17.4 K/mm3 (4.0-10.0)
[2018-10-01] MEDS: LEVOTHYROXINE NA 75 MCG TABLET (FP) PO SCH (06:24)
[2018-10-01 06:56] LABS: ANION GAP 4 MMOL/L (8-16); BLOOD UREA NITROGEN 97 mg/dL (7-18); CALCIUM 8.6 mg/dL (8.5-10.1); CHLORIDE 106 mmol/L (98-107); CO2 32 mmol/L (21-32); CREATININE 2.6 mg/dL (0.55-1.3); GLUCOSE,RANDOM 118 mg/dL (74-106); POTASSIUM 4.9 mmol/L (3.5-5.1); SODIUM 142 mmol/L (136-145)
[2018-10-01] MEDS: IPRATROPIUM BR 0.02% 0.5 MG/2.5 ML VIAL.NEB. NEB SCH ×3 (07:20→15:54)
[2018-10-01] MEDS: APIXABAN 5 MG TABLET PO SCH (09:48)
[2018-10-01] MEDS: NEBIVOLOL 5 MG TABLET (FP) PO SCH (09:48)
[2018-10-01] MEDS: methylPREDNISolone NA SUCC 40 MG/1 ML VIAL IVPUSH SCH (09:48)
[2018-10-01] MEDS: amLODIPine BESYLATE 5 MG TABLET (FP) PO SCH (09:48)
[2018-10-01] MEDS: ALLOPURINOL 100 MG TABLET (FP) PO SCH (09:48)
[2018-10-01] MEDS: BUDESONIDE/FORMETEROL FUMARATE 160/4.5 mcg INHALER IH SCH (09:49)
--- NOTE | 2018-10-01 10:44 | PN ---
Progress Note, Physician History of Present Illness: Dyspnea and wheeze improving with BD and steroid therapies. PAF->SR. - Current Medication List Current Medications: Active Medications Albuterol Sulfate (Ventolin 0.042trength) -) 1 amp NEB Q4H PRN PRN Reason: SHORT OF BREATH/WHEEZING Last Admin: 10/01/18 05:15 Dose: 1 amp Allopurinol (Zyloprim -) 100 mg PO DAILY [facility] Last Admin: 10/01/18 09:48 Dose: 100 mg Amlodipine Besylate (Norvasc -) 5 mg PO DAILY [facility] Last Admin: 10/01/18 09:48 Dose: 5 mg Apixaban (Eliquis -) 5 mg PO BID [facility] Last Admin: 10/01/18 09:48 Dose: 5 mg Budesonide/Formoterol Fumarate (Symbicort 160/4.5mcg -) 2 puff IH BID [facility] Last Admin: 10/01/18 09:49 Dose: 2 puff Guaifenesin (Robitussin -) 10 ml PO Q6H PRN PRN Reason: COUGH Last Admin: 09/26/18 09:45 Dose: 10 ml Ipratropium [place] (Atrovent 0.02% Nebulizer -) 1 amp NEB RQID [facility] Last Admin: 10/01/18 07:20 Dose: 1 amp Levothyroxine Sodium (Synthroid -) 75 mcg PO ACBK [facility] Last Admin: 10/01/18 06:24 Dose: 75 mcg Methylprednisolone Sodium Succinate (Solu-Medrol -) 40 mg IVPUSH BID [facility] Last Admin: 10/01/18 09:48 Dose: 40 mg Nebivolol (Bystolic -) 5 mg PO DAILY [facility] Last Admin: 10/01/18 09:48 Dose: 5 mg - Objective Vital Signs: Vital Signs Temperature 97.5 F L 10/01/18 06:25 Pulse Rate 113 H 10/01/18 06:25 Respiratory Rate 20 10/01/18 06:25 Blood Pressure 129/61 10/01/18 06:25 O2 Sat by Pulse Oximetry (%) 98 09/30/18 21:00 Constitutional: Yes: No Distress, Calm Neck: Yes: Supple Cardiovascular: Yes: Regular Rate and Rhythm Respiratory: Yes: Regular, Diminished, On Nasal O2 Gastrointestinal: Yes: Normal Bowel Sounds, Soft Edema: No Labs: CBC, BMP 10/01/18 05:30 10/01/18 05:30 INR, PTT INR 0.97 (0.83-1.09) 09/23/18 11:29 - ....Imaging EKG: Report Reviewed (Tele: NSR) Problem List - Problems (1) Diastolic dysfunction Code(s): I51.9 - HEART DISEASE, UNSPECIFIED (2) Acute exacerbation of chronic obstructive airways disease Code(s): J44.1 - CHRONIC OBSTRUCTIVE PULMONARY DISEASE W (ACUTE) EXACERBATION (3) Dyspnea Code(s): R06.00 - DYSPNEA, UNSPECIFIED Qualifiers: Dyspnea type: shortness of breath Qualified Code(s): R06.02 - Shortness of breath; R06.00 - Dyspnea, unspecified; R06.01 - Orthopnea (4) HTN (hypertension) Code(s): I10 - ESSENTIAL (PRIMARY) HYPERTENSION Qualifiers: Hypertension type: essential hypertension Qualified Code(s): I10 - Essential (primary) hypertension (5) Pleural effusion Code(s): J90 - PLEURAL EFFUSION, NOT ELSEWHERE CLASSIFIED (6) CKD (chronic kidney disease) Code(s): N18.9 - CHRONIC KIDNEY DISEASE, UNSPECIFIED Qualifiers: Chronic kidney disease stage: stage 3 (moderate) Qualified Code(s): N18.3 - Chronic kidney disease, stage 3 (moderate) (7) A-fib Code(s): I48.91 - UNSPECIFIED ATRIAL FIBRILLATION Qualifiers: Atrial fibrillation type: paroxysmal Qualified Code(s): I48.0 - Paroxysmal atrial fibrillation Assessment/Plan 09/24/2018 Echo: Normal LV and RV size and fxn, tr MR, TR 1. Acute exacerbation of COPD improved 2. Diastolic left ventricular dysfunction with clinical class I NYHA classification LV failure 3. CAD with demand ischemia 4. Paroxysmal afib->NSR 4. hypothyroidism 5. CKD 6. History of breast CA PLAN: 1. Oral steroid taper, bronchodilators and supplemental O2 2. Continue to observe off of diuretics pending renal function recovery, ARB as outpatient 3. Continue Amlodipine 5 qd 4. Continue Bystolic 5 qd 5. Continue Eliquis 5 bid
--- NOTE | 2018-10-01 12:26 | PN ---
Progress Note (short form) - Note Progress Note: PULMONARY States breathing is improving. Less cough and wheezing. Vital Signs Period Temp Pulse Resp BP Sys/Trevino Pulse Ox Last 24 Hr 97.5 F-98.0 F 84-113 20-20 116-138/60-70 98-98 Gen: NAD in chair Heart: RRR Lung: scattered rhonchi Abd: soft, nontender Ext: distal edema CBC, BMP 10/01/18 05:30 10/01/18 05:30 Active Medications Albuterol Sulfate (Ventolin 0.042trength) -) 1 amp NEB Q4H PRN PRN Reason: SHORT OF BREATH/WHEEZING Last Admin: 10/01/18 05:15 Dose: 1 amp Allopurinol (Zyloprim -) 100 mg PO DAILY [facility] Last Admin: 10/01/18 09:48 Dose: 100 mg Amlodipine Besylate (Norvasc -) 5 mg PO DAILY [facility] Last Admin: 10/01/18 09:48 Dose: 5 mg Apixaban (Eliquis -) 5 mg PO BID [facility] Last Admin: 10/01/18 09:48 Dose: 5 mg Budesonide/Formoterol Fumarate (Symbicort 160/4.5mcg -) 2 puff IH BID [facility] Last Admin: 10/01/18 09:49 Dose: 2 puff Guaifenesin (Robitussin -) 10 ml PO Q6H PRN PRN Reason: COUGH Last Admin: 09/26/18 09:45 Dose: 10 ml Ipratropium [place] (Atrovent 0.02% Nebulizer -) 1 amp NEB RQID [facility] Last Admin: 10/01/18 11:13 Dose: 1 amp Levothyroxine Sodium (Synthroid -) 75 mcg PO ACBK [facility] Last Admin: 10/01/18 06:24 Dose: 75 mcg Methylprednisolone Sodium Succinate (Solu-Medrol -) 40 mg IVPUSH BID [facility] Last Admin: 10/01/18 09:48 Dose: 40 mg Nebivolol (Bystolic -) 5 mg PO DAILY [facility] Last Admin: 10/01/18 09:48 Dose: 5 mg A/P Acute COPD Exacerbation LV Diastolic Dysfunction Atrial Fibrillation CAD Acute on Chronic Renal Failure Hypothyroidism h/o Breast Ca - can change steroids to PO prednisone 40mg daily and taper as outpt - inhaled bronchodilators as needed - O2 to keep SpO2 >90% - rate control - continue anticoagulation
--- NOTE | 2018-10-01 14:02 | PN ---
Progress Note, Physician History of Present Illness: continues to improve no complaints - Current Medication List Current Medications: Active Medications Albuterol Sulfate (Ventolin 0.042trength) -) 1 amp NEB Q4H PRN PRN Reason: SHORT OF BREATH/WHEEZING Last Admin: 10/01/18 05:15 Dose: 1 amp Allopurinol (Zyloprim -) 100 mg PO DAILY [facility] Last Admin: 10/01/18 09:48 Dose: 100 mg Amlodipine Besylate (Norvasc -) 5 mg PO DAILY [facility] Last Admin: 10/01/18 09:48 Dose: 5 mg Apixaban (Eliquis -) 5 mg PO BID [facility] Last Admin: 10/01/18 09:48 Dose: 5 mg Budesonide/Formoterol Fumarate (Symbicort 160/4.5mcg -) 2 puff IH BID [facility] Last Admin: 10/01/18 09:49 Dose: 2 puff Guaifenesin (Robitussin -) 10 ml PO Q6H PRN PRN Reason: COUGH Last Admin: 09/26/18 09:45 Dose: 10 ml Ipratropium [place] (Atrovent 0.02% Nebulizer -) 1 amp NEB RQID [facility] Last Admin: 10/01/18 11:13 Dose: 1 amp Levothyroxine Sodium (Synthroid -) 75 mcg PO ACBK [facility] Last Admin: 10/01/18 06:24 Dose: 75 mcg Methylprednisolone Sodium Succinate (Solu-Medrol -) 40 mg IVPUSH BID [facility] Last Admin: 10/01/18 09:48 Dose: 40 mg Nebivolol (Bystolic -) 5 mg PO DAILY [facility] Last Admin: 10/01/18 09:48 Dose: 5 mg - Objective Vital Signs: Vital Signs Temperature 97.9 F 10/01/18 10:00 Pulse Rate 84 10/01/18 10:00 Respiratory Rate 20 10/01/18 10:00 Blood Pressure 138/63 10/01/18 10:00 O2 Sat by Pulse Oximetry (%) 98 10/01/18 09:00 Constitutional: Yes: No Distress, Calm Cardiovascular: Yes: Regular Rate and Rhythm Respiratory: Yes: Regular, On Nasal O2, Poor Air Entry Gastrointestinal: Yes: Normal Bowel Sounds, Soft Musculoskeletal: Yes: WNL Extremities: Yes: WNL Neurological: Yes: Alert, Oriented Psychiatric: Yes: Alert, Oriented Labs: CBC, BMP 10/01/18 05:30 10/01/18 05:30 INR, PTT INR 0.97 (0.83-1.09) 09/23/18 11:29 Assessment/Plan Problem List - Problems (1) Diastolic dysfunction Code(s): I51.9 - HEART DISEASE, UNSPECIFIED (2) Acute exacerbation of chronic obstructive airways disease Code(s): J44.1 - CHRONIC OBSTRUCTIVE PULMONARY DISEASE W (ACUTE) EXACERBATION (3) Dyspnea Code(s): R06.00 - DYSPNEA, UNSPECIFIED Qualifiers: Dyspnea type: shortness of breath Qualified Code(s): R06.02 - Shortness of breath; R06.00 - Dyspnea, unspecified; R06.01 - Orthopnea (4) HTN (hypertension) Code(s): I10 - ESSENTIAL (PRIMARY) HYPERTENSION Qualifiers: Hypertension type: essential hypertension Qualified Code(s): I10 - Essential (primary) hypertension (5) Pleural effusion Code(s): J90 - PLEURAL EFFUSION, NOT ELSEWHERE CLASSIFIED (6) CKD (chronic kidney disease) Code(s): N18.9 - CHRONIC KIDNEY DISEASE, UNSPECIFIED Qualifiers: Chronic kidney disease stage: stage 3 (moderate) Qualified Code(s): N18.3 - Chronic kidney disease, stage 3 (moderate) plan continue resp support incentive mary patient doing well rest as per the team looks like she is back at the base line
--- NOTE | 2018-10-01 14:17 | DS ---
Physical Examination Vital Signs: Vital Signs Temperature 97.9 F 10/01/18 10:00 Pulse Rate 84 10/01/18 10:00 Respiratory Rate 20 10/01/18 10:00 Blood Pressure 138/63 10/01/18 10:00 O2 Sat by Pulse Oximetry (%) 98 10/01/18 09:00 Labs: CBC, BMP 10/01/18 05:30 10/01/18 05:30 Discharge Summary Reason For Visit: PNEUMONIA,CHF Current Active Problems A-fib (Acute) Acute exacerbation of chronic obstructive airways disease (Acute) CHF (congestive heart failure) (Acute) Cough (Acute) Diastolic dysfunction (Acute) Dyspnea (Acute) HTN (hypertension) (Acute) Pleural effusion (Acute) Pneumonia (Acute) - Instructions Diet, Activity, Other Instructions: fu cardiology in 1-2 weeks he will be giving further eliquis prescriptions pt oon po prednisone taper start [id number] 10 mg po daily 3 days Referrals: Isra Britton MD [Primary Care Provider] - Mitesh Britton MD [Staff Physician] - - Home Medications Comprehensive Discharge Medication List: Ambulatory Orders Allopurinol [Zyloprim -] 100 mg PO DAILY 08/30/18 Budesonide/Formeterol Fumarate [SYMBICORT 160/4.5mcg -] 2 inh PO BID 08/30/18 Calcium Carbonate/Vitamin D3 [Calcium 600+D Softgel] 2 each PO DAILY 08/30/18 Docusate Sodium [Colace] 100 mg PO BID 08/30/18 Levothyroxine [Synthroid -] 75 mcg PO DAILY 08/30/18 Albuterol Sulfate Inhaler - [Ventolin Hfa Inhaler -] 1 - 2 inh PO Q4H PRN #1 inhaler 09/09/18 Tiotropium [place] [Spiriva Respimat] 2 puff IH DAILY #1 mist.inhal 09/09/18 Amlodipine Besylate [Norvasc -] 5 mg PO DAILY #30 tablet 09/26/18 Nebivolol [Bystolic -] 2.5 mg PO DAILY #30 tab 09/26/18 Prednisone 10 mg PO ASDIR #30 tablet 09/26/18 Apixaban [Eliquis -] 5 mg PO BID #20 tablet 09/30/18 or snf
--- NOTE | 2018-10-01 15:30 | PN ---
Progress Note, Physician History of Present Illness: Pt seen and examined at bedside. She is awake and alert. She denies shortness of breath. - Current Medication List Current Medications: Active Medications Albuterol Sulfate (Ventolin 0.042trength) -) 1 amp NEB Q4H PRN PRN Reason: SHORT OF BREATH/WHEEZING Last Admin: 10/01/18 05:15 Dose: 1 amp Allopurinol (Zyloprim -) 100 mg PO DAILY [facility] Last Admin: 10/01/18 09:48 Dose: 100 mg Amlodipine Besylate (Norvasc -) 5 mg PO DAILY [facility] Last Admin: 10/01/18 09:48 Dose: 5 mg Apixaban (Eliquis -) 5 mg PO BID [facility] Last Admin: 10/01/18 09:48 Dose: 5 mg Budesonide/Formoterol Fumarate (Symbicort 160/4.5mcg -) 2 puff IH BID [facility] Last Admin: 10/01/18 09:49 Dose: 2 puff Guaifenesin (Robitussin -) 10 ml PO Q6H PRN PRN Reason: COUGH Last Admin: 09/26/18 09:45 Dose: 10 ml Ipratropium [place] (Atrovent 0.02% Nebulizer -) 1 amp NEB RQID [facility] Last Admin: 10/01/18 11:13 Dose: 1 amp Levothyroxine Sodium (Synthroid -) 75 mcg PO ACBK [facility] Last Admin: 10/01/18 06:24 Dose: 75 mcg Methylprednisolone Sodium Succinate (Solu-Medrol -) 40 mg IVPUSH BID [facility] Last Admin: 10/01/18 09:48 Dose: 40 mg Nebivolol (Bystolic -) 5 mg PO DAILY [facility] Last Admin: 10/01/18 09:48 Dose: 5 mg - Objective Vital Signs: Vital Signs Temperature 97.9 F 10/01/18 10:00 Pulse Rate 84 10/01/18 10:00 Respiratory Rate 20 10/01/18 10:00 Blood Pressure 138/63 10/01/18 10:00 O2 Sat by Pulse Oximetry (%) 98 10/01/18 09:00 Constitutional: Yes: Calm Eyes: Yes: Conjunctiva Clear HENT: Yes: Atraumatic Cardiovascular: Yes: S1, S2 Respiratory: Yes: CTA Bilaterally Gastrointestinal: Yes: Soft Genitourinary: Yes: WNL Musculoskeletal: Yes: WNL Edema: No Neurological: Yes: Oriented Psychiatric: Yes: Oriented Labs: CBC, BMP 10/01/18 05:30 10/01/18 05:30 INR, PTT INR 0.97 (0.83-1.09) 09/23/18 11:29 Problem List - Problems (1) Acute exacerbation of chronic obstructive airways disease Code(s): J44.1 - CHRONIC OBSTRUCTIVE PULMONARY DISEASE W (ACUTE) EXACERBATION (2) CKD (chronic kidney disease) Code(s): N18.9 - CHRONIC KIDNEY DISEASE, UNSPECIFIED Qualifiers: Chronic kidney disease stage: stage 3 (moderate) Qualified Code(s): N18.3 - Chronic kidney disease, stage 3 (moderate) Assessment/Plan Current Medications Generic Name Dose Route Start Last Admin Trade Name Freq PRN Reason Stop Dose Admin Albuterol Sulfate 1 amp 09/29/18 14:06 10/01/18 05:15 Ventolin 0.042trength) - NEB 1 amp Q4H PRN Administration SHORT OF BREATH/WHEEZING Allopurinol 100 mg 09/24/18 10:00 10/01/18 09:48 Zyloprim - PO 100 mg DAILY [facility] Administration Amlodipine Besylate 5 mg 09/26/18 10:38 10/01/18 09:48 Norvasc - PO 5 mg DAILY [facility] Administration Apixaban 5 mg 09/30/18 11:45 10/01/18 09:48 Eliquis - PO 5 mg BID [facility] Administration Budesonide/Formoterol Fumarate 2 puff 09/23/18 22:00 10/01/18 09:49 Symbicort 160/4.5mcg - IH 2 puff BID [facility] Administration Guaifenesin 10 ml 09/24/18 18:25 09/26/18 09:45 Robitussin - PO 10 ml Q6H PRN Administration COUGH Ipratropium [place] 1 amp 09/29/18 16:00 10/01/18 11:13 Atrovent 0.02% Nebulizer - NEB 1 amp RQID [facility] Administration Levothyroxine Sodium 75 mcg 09/24/18 07:00 10/01/18 06:24 Synthroid - PO 75 mcg ACBK [facility] Administration Methylprednisolone Sodium Succinate 40 mg 09/30/18 22:00 10/01/18 09:48 Solu-Medrol - IVPUSH 40 mg BID [facility] Administration Nebivolol 5 mg 09/29/18 10:30 10/01/18 09:48 Bystolic - PO 5 mg DAILY [facility] Administration Impression 1. CKD 2. hypothyroidism 3. breast cancer 4. pleural effusion 5. gout 6. asthma 7. liver disease 8. copd 9. asthma 10. a-fib Plan - renal function improving - will need outpt follow up - arb for proteinuria once renal function stabilizes - will need renal workup - follow urine prt to grooming assistant ratio - avoid nsaids
[2018-10-01 15:45] VITALS: BP 120/72; PULSE 111; TEMP 97.5
== END 2018-10-01 18:13 | DRG 291 ==
LOC: JER 10:40 → JERBED 14:11 → J4W 16:28
PROVIDERS: ADMIT Internal Medicine; ATTEND Internal Medicine
DX: I13.0 Hypertensive heart and chronic kidney disease with heart failure and stage 1 through stage 4 chronic kidney disease, or unspecified chronic kidney disease (principal); J18.9 Pneumonia, unspecified organism; I50.33 Acute on chronic diastolic (congestive) heart failure; J44.1 Chronic obstructive pulmonary disease with (acute) exacerbation; N17.9 Acute kidney failure, unspecified; I24.8 Other forms of acute ischemic heart disease; I45.2 Bifascicular block; I48.0 Paroxysmal atrial fibrillation; R09.02 Hypoxemia; E11.22 Type 2 diabetes mellitus with diabetic chronic kidney disease; N18.3 Chronic kidney disease, stage 3 (moderate); R55 Syncope and collapse; E03.9 Hypothyroidism, unspecified; F03.90 Unspecified dementia, unspecified severity, without behavioral disturbance, psychotic disturbance, mood disturbance, and anxiety; D64.9 Anemia, unspecified; I10 Essential (primary) hypertension; M10.9 Gout, unspecified; Z85.3 Personal history of malignant neoplasm of breast; F17.210 Nicotine dependence, cigarettes, uncomplicated; I25.10 Atherosclerotic heart disease of native coronary artery without angina pectoris; I25.2 Old myocardial infarction; Z99.81 Dependence on supplemental oxygen; J84.10 Pulmonary fibrosis, unspecified; Z88.1 Allergy status to other antibiotic agents
CPT/HCPCS: 36415; 71045-TC-FY; 80048; 80053; 81003; 81015; 82550; 82570; 82803; 83605; 83735; 83880; 84100; 84156; 84443; 84484; 85025; 85027; 85610; 85730; 87040; 87086; 87804; 93005; 93010; 93306-TC; 94640; 94761; 97116-GP; 97161-GP; 99285-25; J0131; J1644

== ENCOUNTER 2018-10-02 21:12 | Emergency (ER) | payer OTHER ==
[2018-10-02 21:49] VITALS: BP 158/64; PULSE 74; TEMP 97; BMI 27.4
[2018-10-02] MEDS ORDERED: ACETAMINOPHEN 325 MG TABLET (FP) ONE (22:29)
[2018-10-02] MEDS ORDERED: ACETAMINOPHEN 325 MG TABLET (FP) PO ONE (22:31)
--- NOTE | 2018-10-02 22:42 | PDOC ---
History of Present Illness - General Chief Complaint: Revisit, Lab Variance Stated Complaint: ABNORMAL LABS Time Seen by Provider: 10/02/18 21:56 - History of Present Illness Initial Comments: Mary Alice Taylor is a 78yo woman with a PMH of dementia, COPD, asthma, anemia, HTN, hypothyroidism, gout, breast CA (10y ago), CKD, and recent admission for pneumonia, discharged yesterday, who was brought from [facility] with report of elevated BUN/Cr on labs today. Per lab results brought from [facility], her BUN was 105 and Cr 2.20 today. On chart review, her BUN was 97 yesterday and Cr was 2.6. After 6x phone calls to [facility] for more information, no one could be reached. Ms Taylor reports that she has a headache and hates rehab, but she otherwise feels well. She has no urinary symptoms, has been eating/drinking normally, has no n/v/d/c or abdominal pain. Past History - Past Medical History Allergies/Adverse Reactions: Allergies Allergy/AdvReac Type Severity Reaction Status Date / Time cefuroxime [From Ceftin] Allergy Verified 08/30/18 16:17 orange Allergy Verified 09/26/18 09:47 orange juice Allergy Verified 09/26/18 09:48 Penicillins Allergy Verified 09/02/18 09:20 Home Medications: Ambulatory Orders Allopurinol [Zyloprim -] 100 mg PO DAILY 08/30/18 Budesonide/Formeterol Fumarate [SYMBICORT 160/4.5mcg -] 2 inh PO BID 08/30/18 Calcium Carbonate/Vitamin D3 [Calcium 600+D Softgel] 2 each PO DAILY 08/30/18 Docusate Sodium [Colace] 100 mg PO BID 08/30/18 Levothyroxine [Synthroid -] 75 mcg PO DAILY 08/30/18 Albuterol Sulfate Inhaler - [Ventolin Hfa Inhaler -] 1 - 2 inh PO Q4H PRN #1 inhaler 09/09/18 Tiotropium [place] [Spiriva Respimat] 2 puff IH DAILY #1 mist.inhal 09/09/18 Amlodipine Besylate [Norvasc -] 5 mg PO DAILY #30 tablet 09/26/18 Nebivolol [Bystolic -] 2.5 mg PO DAILY #30 tab 09/26/18 Prednisone 10 mg PO ASDIR #30 tablet 09/26/18 Apixaban [Eliquis -] 5 mg PO BID #20 tablet 09/30/18 Anemia: Yes Asthma: Yes Cancer: Yes (Breast CA) COPD: Yes Dementia: Yes GI Disorders: Yes (GERD) HTN: Yes Thyroid Disease: Yes Lung CA: Yes - Surgical History Abdominal Surgery: Yes (hernia repair) Cholecystectomy: Yes - Immunization History Immunization Up to Date: Yes - Suicide/Smoking/Psychosocial Hx Smoking History: Unknown if ever smoked Have you smoked in the past 12 months: No Number of Cigarettes Smoked Daily: 5 Information on smoking cessation initiated: No 'Breaking Loose' booklet given: 08/31/18 Hx Alcohol Use: No Drug/Substance Use Hx: No Hx Substance Use Treatment: No Review of Systems - Review of Systems Comments:: General: No fevers, no chills, no weight or appetite change, no malaise HEENT: No changes in vision, no changes in hearing, no congestion, no sore throat. +NAGY CV: No chest pain, no palpitations, no LE edema Pulm: No SOB, no cough, no wheezing GI: No nausea or vomiting, no change in bowel habits, no melena : No frequency, no urgency, no dysuria Musc: No back pain, no joint swelling, no recent injury Skin: No rash, no lesions, no erythema Endo: No excessive thirst, no heat/cold intolerance Heme: No unusual bruising or bleeding, no swollen glands Neuro: No syncope, no numbness/tingling, no focal weakness Vasc: No claudication Psych: No recent change in mood, no SI or HI *Physical Exam - Vital Signs Last Vital Signs Temp Pulse Resp BP Pulse Ox 97 F L 74 22 H 158/64 95 10/02/18 21:25 10/02/18 21:25 10/02/18 21:25 10/02/18 21:25 10/02/18 21:25 - Physical Exam Comments: General: No acute distress HEENT: PERRL, EOMI, MMM, voice normal, normal neck ROM, no LAD Cards: RRR, no murmur appreciated Pulm: Comfortable on room air, clear to auscultation bilaterally Abd: Soft, nontender, nondistended : No CVA tenderness Ext: Atraumatic. No LE edema. ROM intact. Strength 5/5 and equal bilaterally Vasc: Extremities WWP. Skin: Normal color, no rashes or lesions. Healing bruises on b/l shins Neuro: A&Ox3, CN grossly intact, normal speech, motor/sensory grossly intact and symmetric Psych: Upset Moderate Sedation - Procedure Monitoring Vital Signs: Procedure Monitoring Vital Signs Temperature 97 F L 10/02/18 21:25 Pulse Rate 74 10/02/18 21:25 Respiratory Rate 22 H 10/02/18 21:25 Blood Pressure 158/64 10/02/18 21:25 O2 Sat by Pulse Oximetry (%) 95 10/02/18 21:25 Medical Decision Making - Medical Decision Making Mary Alice Taylor is a 78yo woman with a PMH of dementia, COPD, asthma, anemia, HTN, hypothyroidism, gout, breast CA (10y ago), CKD, and recent admission for pneumonia, discharged yesterday, who was brought from [facility] with report of elevated BUN/Cr on labs today. Per chart review, her Cr has improved since yesterday to 2.2 from 2.6 and BUN is 105 from 97. - Notes from [facility] indicate that the transfer to the ED was discussed with Dr Melgar. - Spoke to Dr Melgar. He reports that he was told her baseline BUN was in the 20' s. After discussing her recent lab values, he agrees with transfer back to [facility] without additional workup. - Ms Taylor reports a NAGY without neurological or other associated symptoms. PO acetaminophen ordered for headache. - Transfer back to [facility]. Discussed with Dr Vinh Ron PGY1 *DC/Admit/Observation/Transfer Diagnosis at time of Disposition: CKD (chronic kidney disease) - Discharge Dispostion Disposition: HOME Condition at time of disposition: Stable Decision to Admit order: No - Referrals Referrals: Federico Whalen MD [Staff Physician] - - Patient Instructions Printed Discharge Instructions: Chronic Renal Failure Additional Instructions: Discharge Instructions: - You were seen in the emergency department for elevated BUN and creatinine. Based on previous results from your recent hospital admission, your creatinine has actually improved from 2.6 yesterday to 2.2 today. Your BUN is only slightly increased to 105 from a baseline in the high 90's (was 97 on 10/01/18) - Continue to take all of your medications as previously prescribed - Recommend frequent BUN and creatinine checks to ensure that your kidney function is not worsening - You have been referred to a human resource internship, Dr Whalen, who you saw while in the hospital. It is recommended that you schedule follow up as indicated by your primary doctor or within the next 1-2 weeks. - Post Discharge Activity
--- NOTE | 2018-10-02 22:47 | PDOC ---
Attending Attestation - Resident Resident Name: Yariel Sands - ED Attending Attestation I have performed the following: I have examined & evaluated the patient, The case was reviewed & discussed with the resident, I agree w/resident's findings & plan, Exceptions are as noted - Physicial Exam PE: 10/02/18 22:54 pt awake, alert, nad nc, atr 'perrla, eomi cta, rrr - Medical Decision Making 10/02/18 22:53 Patient is 78-year-old female with an with multiple comorbidities, history of chronic renal sufficiency or presents for [facility] for elevated BUN/ creatinine which upon further investigation is noted to be at patient's baseline. Patient complaining of minimal headache only and has no further complaints. Case discussed with Dr. Fernando Melgar who agrees with the plan of transfer back to [facility] for rehabilitation. <Jose Justice - Last Filed: 10/02/18 22:49> - HPI HPI: 10/02/18 23:15 The patient is a 78 year old female with dementia, COPD, asthma, anemia, HTN, hypothyroidism, gout, breast CA (10y ago), CKD, and pneumonia sent in from [facility] for evaluation of elevated BUN and creatinine. Patient admits to a mild headache, but otherwise has no other complaints. <Lilia Gann - Last Filed: 10/02/18 23:18>
== END 2018-10-02 23:56 | disposition home or self-care (01) ==
LOC: JER 21:12
DX: I12.9 Hypertensive chronic kidney disease with stage 1 through stage 4 chronic kidney disease, or unspecified chronic kidney disease (principal); N18.9 Chronic kidney disease, unspecified; J44.9 Chronic obstructive pulmonary disease, unspecified; E03.9 Hypothyroidism, unspecified; Z85.3 Personal history of malignant neoplasm of breast
CPT/HCPCS: 99281-25

== ENCOUNTER → 2018-11-16 | Day surgery (SDC) | payer OTHER ==
--- NOTE | 2018-11-18 09:52 | PATH ---
Surgical Pathology Report Patient Name: FREDRICK HERMAN [facility]. Rec. #: [id number] /Age/Gender: 1940 (Age: 78) / F Account: [id number] Location: RADIOLOGY [facility] Taken: 11/16/2018 Received: 11/16/2018 Reported: 11/18/2018 Physicians: Marilin Mast M.D. Specimen(s) Received A: RIGHT BREAST CORE BIOPSY B: RIGHT AXILLARY LYMPH NODE BIOPSY Clinical History Nonpalpable lesion Ultrasound findings: Suspicious Final Diagnosis A. RIGHT BREAST 10 -11:00, ULTRASOUND GUIDED CORE BIOPSY: INVASIVE DUCTAL CARCINOMA, MODERATE DIFFERENTIATED, MEASURING AT LEAST 1 MM IN GREATEST DIMENSION ON THIS SLIDE. Comment: The breast (specimen A) and axillary lymph node (specimen B) tumor morphologically similar. Due to the limited material in breast biopsy, the biomarker studies performed in specimen B. Immunohistochemical stains (block A1) performed and interpreted at [facility] show the following results: smooth muscle myosin heavy chain and p63 show loss of the myoepithelial cell layer in the areas of invasive carcinoma. B. RIGHT AXILLARY LYMPH NODE, ULTRASOUND GUIDED CORE BIOPSY: INVASIVE DUCTAL CARCINOMA, MODERATE DIFFERENTIATED, MEASURING 0.7 CM IN GREATEST DIMENSION ON THIS SLIDE. NO LYMPHOID TISSUE PRESENT IN THIS MATERIAL. Results of estrogen receptor (ER) and progesterone receptor (NM) studies performed on block "B1" at [facility] are as follows: ER (clone [id number] mouse monoclonal antibody by [employer]): 100% nuclear staining with strong intensity (positive). NM (clone16 mouse monoclonal antibody by [employer]): 100% nuclear staining with strong intensity (positive). Positive and negative controls (internal if applicable) show appropriate results. Formalin fixation and cold ischemic times are within current ASCO/CAP recommendations for ER, NM and Her2 testing. Reports for Her 2 and Ki-67 to follow. This case was discussed with Dr. Dorantes on November 18, 2018. Electronically Signed Greg Sandoval M.D. Addendum Reported: 11/18/2018 Addendum Diagnosis Biomarker Studies Results of Her2 (IHC) & Ki-67 studies performed on this specimen (block B1) at [place], [place] ([id number]) interpreted at [facility] are as follows: Her2 IHC (EP3 from [employer], formerly known as [id number], using Serrano Polymer Refine detection kit): Negative (1+) Ki-67: <10% (low proliferative index) Greg Sandoval M.D. Gross Description A. Received in formalin labeled "right 11:00," are 5 vázquez-yellow, cylindrical portions of fibroadipose tissue ranging from 0.2-1.1 cm in length and averaging 0.1 cm in diameter. The specimens are submitted in toto in one cassette. B. Received in formalin labeled "right axilla," is a 1.2 cm in length x 0.1 cm in diameter vázquez-yellow, cylindrical portion of fibroadipose tissue. The specimen is submitted in toto in one cassette. Time to formalin fixation: Less than one minute Total formalin fixation time: Approximately 8 hours. 11/16/2018 [facility]11/16/2018
== END | disposition home or self-care (01) ==
LOC: JRADIR 08:21 → JRADUS-SUR 08:21
PROVIDERS: ATTEND Internal Medicine Hematology & Oncology
PROC: 0HBT3ZX Excision of Right Breast, Percutaneous Approach, Diagnostic (ICD-10-PCS; principal; 2018-11-16)
PROC: 07B53ZX Excision of Right Axillary Lymphatic, Percutaneous Approach, Diagnostic (ICD-10-PCS; 2018-11-16)
PROC: BH47ZZZ Ultrasonography of Upper Extremity (ICD-10-PCS; 2018-11-16)
DX: C50.411 Malignant neoplasm of upper-outer quadrant of right female breast (principal); C77.3 Secondary and unspecified malignant neoplasm of axilla and upper limb lymph nodes; Z17.0 Estrogen receptor positive status [ER+]; N63.11 Unspecified lump in the right breast, upper outer quadrant
CPT/HCPCS: 19083; 19084; 38505; 76942; 87899; 88305-TC; 88341-TC; 88342-TC; A4648

== ENCOUNTER 2019-01-10 11:19 | Inpatient (IN) | payer OTHER ==
--- NOTE | 2019-01-10 11:47 | PDOC ---
History of Present Illness - General Stated Complaint: DIFFICULTY BREATHING - History of Present Illness Initial Comments: 01/10/19 11:30 78 year old woman from [facility] with a PMH of dementia, COPD (2L home), asthma, anemia, HTN, hypothyroidism, gout, breast CA (10y ago), ? lung cancer? CKD who presents with 3-4 days of fever and productive cough of yellow phlegm who presents for acute shortness of breath that occurred after having lunch with her friends as she was walking. She reports that last night she became short of breath when she was lying back and had to prop herself up to breath better. She denies any recent fever, nausea, sweating, chest pain, abdominal pain diarrhea, constipation. got 2 combivents and decadron 10 [address] route patient reports that a breathing machine fell on her leg sweveral days ago and now she bandaged her leg Past History - Past Medical History Allergies/Adverse Reactions: Allergies Allergy/AdvReac Type Severity Reaction Status Date / Time cefuroxime [From Ceftin] Allergy Verified 01/10/19 11:36 orange Allergy Verified 01/10/19 11:36 orange juice Allergy Verified 01/10/19 11:36 Penicillins Allergy Verified 01/10/19 11:36 Home Medications: Ambulatory Orders Allopurinol [Zyloprim -] 100 mg PO DAILY 08/30/18 Budesonide/Formeterol Fumarate [SYMBICORT 160/4.5mcg -] 2 inh PO BID 08/30/18 Calcium Carbonate/Vitamin D3 [Calcium 600+D Softgel] 2 each PO DAILY 08/30/18 Docusate Sodium [Colace] 100 mg PO BID 08/30/18 Levothyroxine [Synthroid -] 75 mcg PO DAILY 08/30/18 Apixaban [Eliquis -] 5 mg PO BID #20 tablet 09/30/18 Acetaminophen [Tylenol] 650 mg PO Q6H PRN 01/10/19 Albuterol Sulfate Inhaler - [Ventolin Hfa Inhaler -] 1 inh PO Q4H PRN 01/10/19 Albuterol Sulfate [Proair Hfa] 8.5 gm IH TID PRN 01/10/19 Amlodipine Besylate [Norvasc -] 10 mg PO DAILY 01/10/19 Ferrous Sulfate [Iron] 143 mg PO DAILY 01/10/19 Furosemide 20 mg PO DAILY 01/10/19 Umeclidinium [place] [Incruse Ellipta] 62.5 mcg IH DAILY 01/10/19 Anemia: Yes Asthma: Yes Cancer: Yes (Breast CA) COPD: Yes Dementia: Yes GI Disorders: Yes (GERD) HTN: Yes Thyroid Disease: Yes Lung CA: Yes - Surgical History Abdominal Surgery: Yes (hernia repair) Cholecystectomy: Yes - Immunization History Immunization Up to Date: Yes - Suicide/Smoking/Psychosocial Hx Smoking History: Unknown if ever smoked Have you smoked in the past 12 months: No Number of Cigarettes Smoked Daily: 5 'Breaking Loose' booklet given: 08/31/18 Hx Alcohol Use: No Drug/Substance Use Hx: No Hx Substance Use Treatment: No *Physical Exam - Physical Exam Comments: 01/10/19 12:19 GENERAL: Awake, alert, and fully oriented, in no acute distress HEAD: No signs of trauma, normocephalic, atraumatic EYES: EOMI, sclera anicteric, conjunctiva clear ENT: oropharynx clear without exudates. Moist mucosa NECK: Normal ROM, supple LUNGS: No distress, speaks full sentences, decreased breath sounds, no crackles , wheezes, rhonchi or rales, HEART: Regular rate and rhythm, normal S1 and S2, no murmurs, rubs or gallops, peripheral pulses normal and equal bilaterally. ABDOMEN: Soft, nontender, normoactive bowel sounds. No guarding, no rebound. No masses EXTREMITIES : Normal inspection, Normal range of motion, no edema. No clubbing or cyanosis. NEUROLOGICAL: Cranial nerves II through XII grossly intact. Normal speech, normal gait, no focal sensorimotor deficits SKIN: Warm, Dry, normal turgor + R calf abrasion with crusting, surroudning erythema nad warmth to the touch and 2+ edema ED Treatment Course - LABORATORY CBC & Chemistry Diagram: 01/10/19 13:02 01/10/19 12:06 Medical Decision Making - Medical Decision Making 01/10/19 12:18 78 year old woman from [facility] with a PMH of dementia, COPD (2L home), asthma, anemia, HTN, hypothyroidism, gout, breast CA (10y ago), ? lung cancer? CKD who presents with 3-4 days of fever and productive cough of yellow phlegm who presents for acute shortness of breath that occurred after having lunch with her friends as she was walking. She reports that last night she became short of breath when she was lying back and had to prop herself up to breath better. She denies any recent fever, nausea, sweating, chest pain, abdominal pain diarrhea, constipation. ED Course: consider PNA vs copd exacerbation vs acs vs arrythmia less likely chf exacerbation considering unilateral leg swelling, but in setting of sob will eval cbc, cmp, trop, bnp, ekg, cxr patient with 2 combivent and satting well on 2L pt got decadron 10 en route. patient feels improved at bedside. possible infection of R calf from abrasion/injury CXR: L pleural effusion w/ associated L lower lung atelectasis cannot r/o infilrtate will dose abx for possible cellulitis and pna coverage. patient reports that she gets a rash after pencillin will give ceftriaxone and azithro repeat cbc confirm Hb 5.5 stool for occult blood positive 2prbc ordered patient will require admission for transfusion and GI workup *DC/Admit/Observation/Transfer Diagnosis at time of Disposition: Anemia, Pneumonia - Discharge Dispostion Condition at time of disposition: Fair Decision to Admit order: Yes - Referrals Referrals: Isra Britton MD [Primary Care Provider] - - Patient Instructions - Post Discharge Activity
[2019-01-10 12:31] LABS: BASO % 0.9 % (0-2.0); EOS % 1.3 % (0-4.5); HEMATOCRIT 17.7 % (32.4-45.2); LYMPH % 24.5 % (8-40); MCH 26.2 pg (25.7-33.7); MCHC 31.8 g/dl (32.0-36.0); MEAN CELL VOLUME 82.4 fl (80-96); MONO % 5.8 % (3.8-10.2); NEUT % 67.5 % (42.8-82.8); PLATELET COUNT 277 K/MM3 (134-434); RBC 2.14 M/mm3 (3.60-5.2); RDW 17.9 % (11.6-15.6); WHITE BLOOD COUNT 7.8 K/mm3 (4.0-10.0)
[2019-01-10 12:45] LABS: ALBUMIN 2.9 g/dl (3.4-5.0); BILIRUBIN,TOTAL 0.1 mg/dL (0.2-1); N-TERMINAL BNP 8065.1 pg/ml (5-450); POTASSIUM 3.8 mmol/L (3.5-5.1); TOT PROT 5.8 g/dl (6.4-8.2)
[2019-01-10 12:46] LABS: HEMOGLOBIN 5.6 GM/dL (10.7-15.3)
[2019-01-10 13:25] LABS: BASO % 0.5 % (0-2.0); EOS % 0.9 % (0-4.5); HEMATOCRIT 17.3 % (32.4-45.2); LYMPH % 14.5 % (8-40); MCH 26.3 pg (25.7-33.7); MEAN CELL VOLUME 82.1 fl (80-96); MEAN PLT VOLUME 8.9 fl (7.5-11.1); MONO % 2.9 % (3.8-10.2); NEUT % 81.2 % (42.8-82.8); PLATELET COUNT 272 K/MM3 (134-434); RBC 2.11 M/mm3 (3.60-5.2); RDW 18.3 % (11.6-15.6); WHITE BLOOD COUNT 7.5 K/mm3 (4.0-10.0)
[2019-01-10 13:39] LABS: INR 0.97 (0.83-1.09); PROTHROMBIN TIME (PATIENT) 11.4 SEC (9.7-13.0)
[2019-01-10 13:41] LABS: ACTIVATED PTT 33.1 SECONDS (25.2-36.5)
[2019-01-10 13:44] LABS: HEMOGLOBIN 5.5 GM/dL (10.7-15.3)
[2019-01-10] MEDS ORDERED: AZITHROMYCIN IVPB 500 MG in DEXTROSE 5%-WATER - 250 ML IVPB ONE (13:53)
[2019-01-10] MEDS ORDERED: CEFTRIAXONE 1 GM/50 ML BAG ONE (13:58)
[2019-01-10] MEDS ORDERED: AZITHROMYCIN IVPB 500 MG/250 ML BAG IVPB ONE (14:08)
--- NOTE | 2019-01-10 15:58 | PDOC ---
Documentation entered by Neeraj Romero SCRIBE, acting as scribe for Filemon Hager MD. Filemon Hager MD: This documentation has been prepared by the Heather wei Nirvannie, SCRIBE, under my direction and personally reviewed by me in its entirety. I confirm that the documentation accurately reflects all work, treatment, procedures, and medical decision making performed by me. Attending Attestation - Resident Resident Name: Radha Kim - ED Attending Attestation I have performed the following: I have examined & evaluated the patient, The case was reviewed & discussed with the resident, I agree w/resident's findings & plan - HPI HPI: 01/10/19 12:54 The patient is a 78 year old female, with a significant past medical history of dementia, COPD (2L home), asthma, anemia, HTN, hypothyroidism, gout, breast CA ( 10yrs ago), ? lung cancer, CKD, who presents to the emergency department via EMS from [facility] s/p 2 episodes of shortness of breath. As per patient, today she was walking with friends after lunch when she began to feel short of breath, prompting her arrival to the ED. She notes a similar episode last night while in bed at which time it was alleviated after propping herself up. Secondary to her shortness of breath, patient notes 3 days of fever with associated productive cough (yellow phlegm). She denies recent headache or dizziness. She denies recent nausea, vomit, diarrhea or constipation. She denies recent dysuria, frequency, urgency or hematuria. She denies recent chest pain or palpitations. Allergies: Cefuroxime, Penicillins Social history: Resident at [facility]. Primary Care Physician: Dr. Britton - Physicial Exam PE: 01/10/19 13:12 GENERAL: The patient is awake, alert, and fully oriented, Nontoxic - in no acute distress. HEAD: Normocephalic, atraumatic. EYES: extraocular movements intact, sclera anicteric, conjunctiva clear. ENT: Normal voice, Moist mucous membranes. NECK: Normal range of motion, supple LUNGS: Breath sounds equal, clear to auscultation bilaterally. No wheezes, no rhonchi, no rales. HEART: Regular rate and rhythm, normal S1 and S2 without murmur, rub or gallop. ABDOMEN: Soft, nontender, No guarding, no rebound. . No CVA tenderness EXTREMITIES: Normal range of motion,+! pitting edema. +healing wound on R braun with mild erythema without significant warmth, mildly ttp, + surounding edema NEUROLOGICAL: No facial assymetry, Normal speech, PSYCH: Normal mood, normal affect. SKIN: Warm, Dry, normal turgor, - Medical Decision Making 01/10/19 12:43 78y F hx afib on eliquis, ashlie, ?lung ca, present with sob/dyspena, cough w/o fever/chills, cp, abd pain, n / v pts labs reviewed noted for anemia to 5 - awaiting stool guaiac may be the caues of her sob - trop/bnp also sliglhty elevated suspect may be due to ckd - no associated cp or ischemic ekg changes will repeat cbc, obtain type and anticipate transfusion and admission
[2019-01-10] MEDS ORDERED: ACETAMINOPHEN 325 MG TABLET (FP) PO PRN (16:07)
[2019-01-10] MEDS ORDERED: ALBUTEROL SO4 0.083% IH SOL 2.5 MG/3 ML VIAL.NEB. NEB PRN (16:08)
[2019-01-10] MEDS ORDERED: PANTOPRAZOLE SODIUM 40 MG VIAL ONE (16:16)
[2019-01-10] MEDS ORDERED: PANTOPRAZOLE SODIUM 40 MG/100 ML BAG IVPB ONE (16:16)
--- NOTE | 2019-01-10 16:16 | HP ---
CHIEF COMPLAINT: shortness of breath PCP: at [facility] HISTORY OF PRESENT ILLNESS: 78 yof with PMHx of invasive ductal R breast ca (10 years, recently worked up again, when reported declined chemoradiation), COPD on 2 L home oxygen, LLL PNA with pleural effusion s/p thoracocentesis transudative (09/2018), Chronic diastolic dysfunction, CAD (not reported PCI or intervention), HTN, HLD, CVA with no residual deficits hypothyroidism, gout comes with 3-4 days of worsening shortness of breath, associated with cough with some blood tinged sputum today. Kristenorts was trying to change her breathing machine when fell on her right braun. Per assisted living records, started on bactrim 01/04/2019. 12 point ROS done, denies any fevers, chills, chest pain, dark or bloody stools , vomiting, abdominal pain, urinary symptoms, arm or jaw pain. Does report palpitations and sick contacts, with other residents with cough. ER course was notable for: (1) hb 5.5 with post FOBT (2) Tn 0.16-> 0.18 (3) GI consulted, on protonix drip. Recent Travel: denies PAST MEDICAL HISTORY: invasive ductal R breast ca (10 years, recently worked up again, when reported declined chemoradiation), COPD on 2 L home oxygen, LLL PNA with pleural effusion s/p thoracocentesis transudative (09/2018), Chronic diastolic dysfunction, CAD (not reported PCI or intervention), HTN, HLD, hypothyroidism, gout, CVA with no residual deficits PAST SURGICAL HISTORY: Hernia repair Social History: Smokin cig/day, smoking history for 50 years Alcohol: denies Drugs: sami At [facility] in independent [place], uses [facility] Family History: Allergies cefuroxime [From Ceftin] Allergy (Verified 01/10/19 11:36) orange Allergy (Verified 01/10/19 11:36) orange juice Allergy (Verified 01/10/19 11:36) Penicillins Allergy (Verified 01/10/19 11:36) reaction unknown, listed in assisted living med list HOME MEDICATIONS: Home Medications Medication Instructions Recorded Allopurinol [Zyloprim -] 100 mg PO DAILY 08/30/18 Budesonide/Formeterol Fumarate 2 inh PO BID 08/30/18 [SYMBICORT 160/4.5mcg -] Calcium Carbonate/Vitamin D3 2 each PO DAILY 08/30/18 [Calcium 600+D Softgel] Docusate Sodium [Colace] 100 mg PO BID 08/30/18 Levothyroxine [Synthroid -] 75 mcg PO DAILY 08/30/18 Apixaban [Eliquis -] 5 mg PO BID #20 tablet 09/30/18 Acetaminophen [Tylenol] 650 mg PO Q6H PRN 01/10/19 Albuterol Sulfate Inhaler - 1 inh PO Q4H PRN 01/10/19 [Ventolin Hfa Inhaler -] Albuterol Sulfate [Proair Hfa] 8.5 gm IH TID PRN 01/10/19 Amlodipine Besylate [Norvasc -] 10 mg PO DAILY 01/10/19 Bacitracin - [Bacitracin Topical 1 applic TP DAILY 01/10/19 Ointment -] Ferrous Sulfate [Iron] 143 mg PO DAILY 01/10/19 Furosemide 20 mg PO DAILY 01/10/19 Sulfamethoxazole/Trimethoprim 1 tab PO BID 01/10/19 [Bactrim Ds -] Umeclidinium [place] [Incruse 62.5 mcg IH DAILY 01/10/19 Ellipta] REVIEW OF SYSTEMS 12 point ROS done, per HPI PHYSICAL EXAMINATION Vital Signs - 24 hr 01/10/19 01/10/19 01/10/19 11:32 12:30 14:55 Temperature 97.9 F Pulse Rate 88 Pulse Rate [ 91 H 103 H Apical] Respiratory 18 22 H 26 H Rate Blood Pressure 121/63 Blood Pressure 109/68 107/68 [Right Arm] O2 Sat by Pulse 100 98 96 Oximetry (%) GENERAL:alert awake, OX3, tachypneic, some respiratory distress, but able to speak in full sentences, Pos pallor HEAD: Normal with no signs of trauma. EYES: Pupils equal, round and reactive to light, extraocular movements intact, sclera pale and anicteric, conjunctiva clear. No lid lag. EARS, NOSE, THROAT: Ears normal, nares patent, oropharynx clear without exudates. Moist mucous membranes. NECK: Normal range of motion, supple, no JVD noted LUNGS: decreased air entry all over, left basilar rales HEART: S1S2 irregular ABDOMEN: Soft, nontender, not distended, normoactive bowel sounds, no guarding, no rebound, no masses. MUSCULOSKELETAL: Normal range of motion at all joints. No bony deformities or tenderness. No CVA tenderness. UPPER EXTREMITIES: 2+ pulses, warm, well-perfused. No cyanosis. No clubbing. No peripheral edema. LOWER EXTREMITIES: 1 cm ulcer with scant dried yellowish discharge over upper braun, no surrounding erythema/warmth or tenderness noted NEUROLOGICAL: AAOx3, facial symmetry, tongue midline, moves all extremities symmetrically, normal speech, gait not observed PSYCHIATRIC: Cooperative. Good eye contact. Appropriate mood and affect. SKIN: Warm, dry, normal turgor, pallor, normal capillary refill Laboratory Results - last 24 hr 01/10/19 01/10/19 01/10/19 12:06 12:06 13:02 WBC 7.8 RBC 2.14 L Hgb 5.6 L* Hct 17.7 L D MCV 82.4 MCH 26.2 D MCHC 31.8 L RDW 17.9 H Plt Count 277 MPV 9.0 Absolute Neuts (auto) 5.3 Neutrophils % 67.5 Lymphocytes % 24.5 Monocytes % 5.8 Eosinophils % 1.3 D Basophils % 0.9 Nucleated RBC % 0 PT with INR INR PTT (Actin FS) Sodium 138 Potassium 3.8 Chloride 101 Carbon Dioxide 27 Anion Gap 10 BUN 55 H Creatinine 3.0 H Est GFR (CKD-EPI)AfAm 16.79 Est GFR (CKD-EPI)NonAf 14.49 Random Glucose 95 Calcium 9.0 Total Bilirubin 0.1 L AST 15 ALT 11 L Alkaline Phosphatase 51 Troponin I 0.16 H B-Natriuretic Peptide 8065.1 H Total Protein 5.8 L Albumin 2.9 L Stool Occult Blood Blood Type B POSITIVE Antibody Screen Negative Crossmatch See Detail 01/10/19 01/10/19 01/10/19 13:02 13:02 13:02 WBC 7.5 RBC 2.11 L Hgb 5.5 L* Hct 17.3 L MCV 82.1 MCH 26.3 MCHC 32.0 RDW 18.3 H Plt Count 272 MPV 8.9 Absolute Neuts (auto) 6.1 Neutrophils % 81.2 D Lymphocytes % 14.5 D Monocytes % 2.9 L Eosinophils % 0.9 Basophils % 0.5 Nucleated RBC % 0 PT with INR 11.40 INR 0.97 PTT (Actin FS) 33.1 Sodium Potassium Chloride Carbon Dioxide Anion Gap BUN Creatinine Est GFR (CKD-EPI)AfAm Est GFR (CKD-EPI)NonAf Random Glucose Calcium Total Bilirubin AST ALT Alkaline Phosphatase Troponin I B-Natriuretic Peptide Total Protein Albumin Stool Occult Blood Positive Blood Type Antibody Screen Crossmatch 01/10/19 01/10/19 15:07 15:07 WBC RBC Hgb Hct MCV MCH MCHC RDW Plt Count MPV Absolute Neuts (auto) Neutrophils % Lymphocytes % Monocytes % Eosinophils % Basophils % Nucleated RBC % PT with INR INR PTT (Actin FS) Sodium Potassium Chloride Carbon Dioxide Anion Gap BUN Creatinine Est GFR (CKD-EPI)AfAm Est GFR (CKD-EPI)NonAf Random Glucose Calcium Total Bilirubin AST ALT Alkaline Phosphatase Troponin I 0.18 H B-Natriuretic Peptide Total Protein Albumin Stool Occult Blood Blood Type B POSITIVE Antibody Screen Crossmatch CXr results and images reviewed EKG Afib 98, RBBB, ST depression in V6 (new from prior), otherwise unchanged EKG ASSESSMENT/PLAN: 78 yof with PMHx of invasive ductal R breast ca (10 years, recently worked up again, when reported declined chemoradiation), COPD on 2 L home oxygen, LLL PNA with pleural effusion s/p thoracocentesis transudative (09/2018), Chronic diastolic dysfunction, CAD (not reported PCI or intervention), HTN, HLD, CVA with no residual deficits hypothyroidism, gout admitted with dyspnea, severe anemia, pos FOBT and PATY on cKD -Dyspnea, suspect multifactorial from severe anemia, COPD +/- exacerabation/ Viral illness, r/o PNA though low suspicion -Severe anemia, r/o GIB, ?PUD/gastritis from steroid use vs AVM, vs lower GI source/Mass/AVM compounded by AC use -Acute on chronic hypoxic respiratory failure -PATY on CKD stage III, from suspected GI bleed, bactrim/diuretic use +/- hypovolumia -Elevated troponin, suspect demand type II NSTEMI, from above -Afib with RVR, likely from above, on eliquis -Invasive ductal Right breast Ca reported refused treatment recently -COPD on 2 L Home oxygen -Diastolic dysfunction -HTN -HLD -h/o LLL PNA with pleural effusion s/p thoracocentesis (transudative) in 09/2018 -Gout -Hypothyroidism Plan: 2 large bore IVs, transfuse 2 units PRBC GI consulted from ED. Protonix drip. Clears, npo after midnight for possible EGD based on clinical course and respiratory status. Monitor hemodynamics and volume status closely. Standing and prn nebs. Hold off on steroids for now given concerns for GI bleed and dyspnea could be attributed to severe anemia. Address if symptoms fail to improve post transfusion or clinical worsening noted. Emperic levaquin. Check influenza/RSV. CT chest/A/p to assess pulmonary parenchyma and r/o abdominal etiology for severe anemia. Stop abx if no concerns. Monitor renal function. Getting PRBC. Additional hydration based on renal function and volume status. Hold Bactrim/Lasix. Renal input if cr fails to improve. Continue levothyroxine hold eliquis. DVTPPX with SCD LLE. Duplex RLE. Code status; addressed in detail with patient, Initially unsure if wanted CPR/ intubation, later stated "only give 1 try". Has recently refused treatment for breast ca. Hematology input Will have palliative care input to address goals of care. Dispo admit to inpatient telemetry. Plan discussed with patient in detail, all questions answered. Care co-ordinated with ED. total admit time spent 65 min. Visit type - Emergency Visit Emergency Visit: Yes ED Registration Date: 01/10/19 Care time: The patient presented to the Emergency Department on the above date and was hospitalized for further evaluation of their emergent condition. - New Patient This patient is new to me today: Yes Date on this admission: 01/10/19 - Critical Care Critical Care patient: No
[2019-01-10] MEDS: PANTOPRAZOLE SODIUM 80 MG in SODIUM CHLORIDE 100 ML IVPB SCH (16:51)
[2019-01-10] MEDS: BUDESONIDE/FORMETEROL FUMARATE 160/4.5 mcg INHALER IH SCH (22:10)
[2019-01-10] MEDS: DOCUSATE SODIUM 100 MG CAPSULE (FP) PO SCH (22:10)
[2019-01-10] MEDS: ALBUTEROL SO4 2.5/IPRATROPIUM 0.5 INH SOL 3 ML VIAL.NEB. NEB SCH (22:15)
[2019-01-11 01:25] LABS: MCH 27.2 pg (25.7-33.7); MCHC 32.6 g/dl (32.0-36.0); MEAN CELL VOLUME 83.5 fl (80-96); PLATELET COUNT 263 K/MM3 (134-434); RBC 2.42 M/mm3 (3.60-5.2); RDW 17.7 % (11.6-15.6); WHITE BLOOD COUNT 5.8 K/mm3 (4.0-10.0)
[2019-01-11 02:20] LABS: HEMOGLOBIN 6.6 GM/dL (10.7-15.3)
[2019-01-11 02:21] LABS: HEMATOCRIT 20.2 % (32.4-45.2)
[2019-01-11] MEDS: LEVOTHYROXINE NA 75 MCG TABLET (FP) PO SCH (06:05)
[2019-01-11 07:02] LABS: BASO % 0.3 % (0-2.0); LYMPH % 12.5 % (8-40); MCH 27.1 pg (25.7-33.7); MEAN CELL VOLUME 82.2 fl (80-96); MEAN PLT VOLUME 9.6 fl (7.5-11.1); NEUT % 83.2 % (42.8-82.8); PLATELET COUNT 270 K/MM3 (134-434); RBC 2.38 M/mm3 (3.60-5.2); RDW 17.3 % (11.6-15.6); WHITE BLOOD COUNT 6.5 K/mm3 (4.0-10.0)
[2019-01-11 07:22] LABS: BILIRUBIN,TOTAL 0.1 mg/dL (0.2-1); CALCIUM 9.3 mg/dL (8.5-10.1); MAGNESIUM 2.6 mg/dL (1.8-2.4); PHOSPHOROUS 4.1 mg/dL (2.5-4.9); POTASSIUM 4.4 mmol/L (3.5-5.1); TOT PROT 5.9 g/dl (6.4-8.2)
[2019-01-11 07:45] LABS: HEMATOCRIT 19.5 % (32.4-45.2); HEMOGLOBIN 6.5 GM/dL (10.7-15.3)
[2019-01-11] MEDS: ALBUTEROL SO4 2.5/IPRATROPIUM 0.5 INH SOL 3 ML VIAL.NEB. NEB SCH ×4 (07:48→20:50)
[2019-01-11] MEDS ORDERED: FUROSEMIDE 40 MG/4 ML INJECTABLE VIAL IVPUSH ONE ×2 (08:52→10:54)
--- NOTE | 2019-01-11 09:55 | EKG ---
Test Reason : Blood Pressure : / mmHG Vent. Rate : 098 BPM Atrial Rate : 094 BPM P-R Int : 000 ms QRS Dur : 182 ms QT Int : 430 ms P-R-T Axes : 000 -65 064 degrees QTc Int : 548 ms ATRIAL FIBRILLATION LEFT AXIS DEVIATION RIGHT BUNDLE BRANCH BLOCK SEPTAL INFARCT (CITED ON OR BEFORE 24-SEP-2018) T WAVE ABNORMALITY, CONSIDER LATERAL ISCHEMIA ABNORMAL ECG WHEN COMPARED WITH ECG OF 29-SEP-2018 10:16, QT HAS LENGTHENED T WAVE VARIATION Confirmed by CHAMP REYES MD ([id number]) on 01/11/2019 9:54:54 AM Referred By: Confirmed By:CHAMP REYES MD
--- NOTE | 2019-01-11 10:11 | CON.CARD ---
Consult Consult Specialty:: Cardiology Referred by:: Hospitalist Medicine Reason for Consultation:: Dyspnea - History of Present Illness Chief Complaint: Dyspnea History of Present Illness: Patient is a 78 year old female recently admitted with pleural effusion s/p thoracentesis found to be transudate, underlying history of breast CA (10 years ago), COPD, anemia, HTN, hypothyroidism and gout who is admitted with worsening shortness of breath, orthopnea, found to have significant chronic blood loss anemia, O2 requirement increased after pRBC transfusion.. She denies chest pain or palpitations. She denies nausea, vomiting, diarrhea or abdominal pain. She complained of dizziness but no LOC. She has nonproductive cough. Currently on 40 % VM. - History Source History Provided By: Medical Record Limitations to Obtaining History: Clinical Condition - Past Medical History Cardio/Vascular: Yes: CAD, HTN, DE (25 yrs ago) Pulmonary: Yes: Bronchitis, COPD, O2 Dependent, Pneumonia Endocrine: Yes: Hypothyroidism - Alcohol/Substance Use Hx Alcohol Use: No History of Substance Use: reports: None - Smoking History Smoking history: Current every day smoker Have you smoked in the past 12 months: Yes Aproximately how many cigarettes per day: 5 Home Medications - Allergies Allergies/Adverse Reactions: Allergies Allergy/AdvReac Type Severity Reaction Status Date / Time cefuroxime [From Ceftin] Allergy Verified 01/10/19 11:36 orange Allergy Verified 01/10/19 11:36 orange juice Allergy Verified 01/10/19 11:36 Penicillins Allergy Verified 01/10/19 11:36 - Home Medications Home Medications: Ambulatory Orders Allopurinol [Zyloprim -] 100 mg PO DAILY 08/30/18 Budesonide/Formeterol Fumarate [SYMBICORT 160/4.5mcg -] 2 inh PO BID 08/30/18 Calcium Carbonate/Vitamin D3 [Calcium 600+D Softgel] 2 each PO DAILY 08/30/18 Docusate Sodium [Colace] 100 mg PO BID 08/30/18 Levothyroxine [Synthroid -] 75 mcg PO DAILY 08/30/18 Apixaban [Eliquis -] 5 mg PO BID #20 tablet 09/30/18 Acetaminophen [Tylenol] 650 mg PO Q6H PRN 01/10/19 Albuterol Sulfate Inhaler - [Ventolin Hfa Inhaler -] 1 inh PO Q4H PRN 01/10/19 Albuterol Sulfate [Proair Hfa] 8.5 gm IH TID PRN 01/10/19 Amlodipine Besylate [Norvasc -] 10 mg PO DAILY 01/10/19 Bacitracin - [Bacitracin Topical Ointment -] 1 applic TP DAILY 01/10/19 Ferrous Sulfate [Iron] 143 mg PO DAILY 01/10/19 Furosemide 20 mg PO DAILY 01/10/19 Sulfamethoxazole/Trimethoprim [Bactrim Ds -] 1 tab PO BID 01/10/19 Umeclidinium [place] [Incruse Ellipta] 62.5 mcg IH DAILY 01/10/19 Family Disease History - Family Disease History Family Disease History: CA: Sister Review of Systems - Review of Systems Respiratory: reports: Orthopnea, SOB Vital Signs: Vital Signs Temperature 97.6 F 01/11/19 09:00 Pulse Rate 94 H 01/11/19 09:00 Respiratory Rate 20 01/11/19 09:00 Blood Pressure 168/66 01/11/19 09:00 O2 Sat by Pulse Oximetry (%) 95 01/11/19 07:47 Constitutional: Yes: No Distress, Calm, Thin Neck: Yes: Supple Respiratory: Yes: Regular, Diminished, On Venti-Mask Gastrointestinal: Yes: Normal Bowel Sounds, Soft Cardiovascular: Yes: Pulse Irregular JVD: No Carotid Bruit: No Heart Sounds: Yes: S1, S2 Murmur: Yes: Systolic Murmur, Grade 1 Edema: No - Other Data Labs, Other Data: CBC, BMP 01/11/19 05:30 01/11/19 05:30 INR, PTT INR 0.97 (0.83-1.09) 01/10/19 13:02 Troponin, BNP 01/10/19 01/10/19 12:06 15:07 Troponin I 0.16 H 0.18 H B-Natriuretic Peptide 8065.1 H Troponin, BNP 01/10/19 01/10/19 12:06 15:07 Troponin I 0.16 H 0.18 H B-Natriuretic Peptide 8065.1 H Afib @ 98 RBBB, LAD, QTc 548 msec Ejection Fraction %: LVEF > or = 40 % Imaging - Results Chest X-ray: Report Reviewed (Left effusion with LLL ATX) Cat Scan: Report Reviewed (Lingular consolidation/ATX, small bilateral effusions with bibasilar ATX, mod renal atrophy R>L, large ventral hernia anterior abd wall) Ultrasound: Report Reviewed (NEg RLE DVT) Problem List - Problems (1) Anemia Code(s): D64.9 - ANEMIA, UNSPECIFIED Qualifiers: Anemia type: iron deficiency Iron deficiency anemia type: chronic blood loss Qualified Code(s): D50.0 - Iron deficiency anemia secondary to blood loss (chronic) (2) A-fib Code(s): I48.91 - UNSPECIFIED ATRIAL FIBRILLATION Qualifiers: Atrial fibrillation type: paroxysmal Qualified Code(s): I48.0 - Paroxysmal atrial fibrillation (3) CHF (congestive heart failure) Code(s): I50.9 - HEART FAILURE, UNSPECIFIED Qualifiers: Heart failure type: diastolic Heart failure chronicity: acute on chronic Qualified Code(s): I50.33 - Acute on chronic diastolic (congestive) heart failure (4) CKD (chronic kidney disease) Code(s): N18.9 - CHRONIC KIDNEY DISEASE, UNSPECIFIED Qualifiers: (5) Dyspnea Code(s): R06.00 - DYSPNEA, UNSPECIFIED Qualifiers: Dyspnea type: shortness of breath Qualified Code(s): R06.02 - Shortness of breath; R06.00 - Dyspnea, unspecified; R06.01 - Orthopnea (6) HTN (hypertension) Code(s): I10 - ESSENTIAL (PRIMARY) HYPERTENSION Qualifiers: Hypertension type: essential hypertension Qualified Code(s): I10 - Essential (primary) hypertension Assessment/Plan 09/24/2018 Echo: Normal LV and RV size and fxn, tr MR, TR 1. Dyspnea referable to chronic blood loss anemia, r/o GI source 2. Acute on chronic diastolic heart failure post pRBC 3. COPD with h/o falres 4. CAD with demand ischemia 5. Paroxysmal afib->NSR previously on Eliquis 6. hypothyroidism 7. CKD 8. History of breast CA 9. Prolonqed QTc PLAN: 1. Hold Eliquis pending hemostasis, transfuse to achieve Hgb>8.0 2. IV diuresis with monitor diuretic response, renal fxn and electrolytes, trend trops to doument peak, f/u repeat echo ordered, repeat ECG in AM, avoid QT prolonging agents 3. Bronchodilators and supplemental O2 as needed 4. Resume Amlodipine 10 qd as hemodynamics tolerate 5. GI w/u pending, empiric Protonix gtt, may proceed with endoscopy from CV- standpoint once euvolemia achieved 6. Thank you for consultative opportunity
[2019-01-11] MEDS: DOXYCYCLINE INJECTION 100 MG in DEXTROSE 5%-WATER - 100 ML IVPB SCH ×2 (10:56→21:33)
[2019-01-11] MEDS: BUDESONIDE/FORMETEROL FUMARATE 160/4.5 mcg INHALER IH SCH ×2 (11:01→21:39)
[2019-01-11] MEDS ORDERED: cefTRIAXone SODIUM 1 GM VIAL ONE (11:04)
[2019-01-11] MEDS ORDERED: DEXTROSE 5%-WATER - 50 ML IVPB ONE (11:04)
[2019-01-11] MEDS: CEFTRIAXONE 1 GM in DEXTROSE 5%-WATER - 50 ML IVPB SCH (11:05)
[2019-01-11] MEDS: DOCUSATE SODIUM 100 MG CAPSULE (FP) PO SCH ×2 (11:06→22:11)
--- NOTE | 2019-01-11 11:10 | PN ---
Teaching Attending Note Name of Resident: Sukhdeep Ely ATTENDING PHYSICIAN STATEMENT I saw and evaluated the patient. I reviewed the resident's note and discussed the case with the resident. I agree with the resident's findings and plan as documented with exceptions below. SUBJECTIVE: Patient seen and examined. Breathing improved from yesterday, no new complaints , No vomiting, dark or bloody stools or concerns. OBJECTIVE: Vital Signs Period Temp Pulse Resp BP Sys/Trevino Pulse Ox Last 24 Hr 97.6 F-98.3 F 88-103 18-26 107-168/57-70 91-100 Intake & Output 01/08/19 01/09/19 01/10/19 01/11/19 23:59 23:59 23:59 23:59 Intake Total 350 Output Total 300 Balance 350 -300 Weight 151 lb 3.2 oz 152 lb General: sitting in bed, pallor, improved tachypnea Chest: Decreased air entry all over, unable to appreciate rales or wheezing Abdomen:soft, NT throughout, ND, pos bowel sounds Extremities: no edema Home Medications Medication Instructions Recorded Allopurinol [Zyloprim -] 100 mg PO DAILY 08/30/18 Budesonide/Formeterol Fumarate 2 inh PO BID 08/30/18 [SYMBICORT 160/4.5mcg -] Calcium Carbonate/Vitamin D3 2 each PO DAILY 08/30/18 [Calcium 600+D Softgel] Docusate Sodium [Colace] 100 mg PO BID 08/30/18 Levothyroxine [Synthroid -] 75 mcg PO DAILY 08/30/18 Apixaban [Eliquis -] 5 mg PO BID #20 tablet 09/30/18 Acetaminophen [Tylenol] 650 mg PO Q6H PRN 01/10/19 Albuterol Sulfate Inhaler - 1 inh PO Q4H PRN 01/10/19 [Ventolin Hfa Inhaler -] Albuterol Sulfate [Proair Hfa] 8.5 gm IH TID PRN 01/10/19 Amlodipine Besylate [Norvasc -] 10 mg PO DAILY 01/10/19 Bacitracin - [Bacitracin Topical 1 applic TP DAILY 01/10/19 Ointment -] Ferrous Sulfate [Iron] 143 mg PO DAILY 01/10/19 Furosemide 20 mg PO DAILY 01/10/19 Sulfamethoxazole/Trimethoprim 1 tab PO BID 01/10/19 [Bactrim Ds -] Umeclidinium [place] [Incruse 62.5 mcg IH DAILY 01/10/19 Ellipta] Active Medications Acetaminophen (Tylenol -) 650 mg PO Q6H PRN PRN Reason: PAIN LEVEL 1-5 Albuterol Sulfate (Ventolin 0.083% Nebulizer Soln -) 1 amp NEB Q4H PRN PRN Reason: SHORT OF BREATH/WHEEZING Albuterol/Ipratropium (Duoneb -) 1 amp NEB RQID [facility] Last Admin: 01/11/19 07:48 Dose: 1 amp Bacitracin (Bacitracin -) 1 applic TP DAILY [facility] Budesonide/Formoterol Fumarate (Symbicort 160/4.5mcg -) 2 puff IH BID [facility] Last Admin: 01/11/19 11:01 Dose: 2 puff Docusate Sodium (Colace -) 100 mg PO BID [facility] Last Admin: 01/11/19 11:06 Dose: 100 mg Pantoprazole Sodium 80 mg/ (Sodium Chloride) 100 mls @ 10 mls/hr IVPB Q10H [facility] Last Admin: 01/10/19 16:51 Dose: 10 mls/hr Ceftriaxone Sodium 1 gm/ (Dextrose) 50 mls @ 100 mls/hr IVPB DAILY [facility]; Protocol Last Admin: 01/11/19 11:05 Dose: 100 mls/hr Doxycycline Hyclate 100 mg/ (Dextrose) 100 mls @ 100 mls/hr IVPB BID [facility] Last Admin: 01/11/19 10:56 Dose: 100 mls/hr Levothyroxine Sodium (Synthroid -) 75 mcg PO DAILY@0700 [facility] Last Admin: 01/11/19 06:05 Dose: 75 mcg Laboratory Results - last 24 hr 01/10/19 01/10/19 01/10/19 12:06 12:06 13:02 WBC 7.8 RBC 2.14 L Hgb 5.6 L* Hct 17.7 L D MCV 82.4 MCH 26.2 D MCHC 31.8 L RDW 17.9 H Plt Count 277 MPV 9.0 Absolute Neuts (auto) 5.3 Neutrophils % 67.5 Lymphocytes % 24.5 Monocytes % 5.8 Eosinophils % 1.3 D Basophils % 0.9 Nucleated RBC % 0 PT with INR INR PTT (Actin FS) Sodium 138 Potassium 3.8 Chloride 101 Carbon Dioxide 27 Anion Gap 10 BUN 55 H Creatinine 3.0 H Est GFR (CKD-EPI)AfAm 16.79 Est GFR (CKD-EPI)NonAf 14.49 Random Glucose 95 Calcium 9.0 Phosphorus Magnesium Total Bilirubin 0.1 L AST 15 ALT 11 L Alkaline Phosphatase 51 Troponin I 0.16 H B-Natriuretic Peptide 8065.1 H Total Protein 5.8 L Albumin 2.9 L Stool Occult Blood Influenza A (Rapid) Influenza B (Rapid) RSV Rapid Blood Type B POSITIVE Antibody Screen Negative Crossmatch See Detail 01/10/19 01/10/19 01/10/19 13:02 13:02 13:02 WBC 7.5 RBC 2.11 L Hgb 5.5 L* Hct 17.3 L MCV 82.1 MCH 26.3 MCHC 32.0 RDW 18.3 H Plt Count 272 MPV 8.9 Absolute Neuts (auto) 6.1 Neutrophils % 81.2 D Lymphocytes % 14.5 D Monocytes % 2.9 L Eosinophils % 0.9 Basophils % 0.5 Nucleated RBC % 0 PT with INR 11.40 INR 0.97 PTT (Actin FS) 33.1 Sodium Potassium Chloride Carbon Dioxide Anion Gap BUN Creatinine Est GFR (CKD-EPI)AfAm Est GFR (CKD-EPI)NonAf Random Glucose Calcium Phosphorus Magnesium Total Bilirubin AST ALT Alkaline Phosphatase Troponin I B-Natriuretic Peptide Total Protein Albumin Stool Occult Blood Positive Influenza A (Rapid) Influenza B (Rapid) RSV Rapid Blood Type Antibody Screen Crossmatch 01/10/19 01/10/19 01/10/19 15:07 15:07 15:50 WBC RBC Hgb Hct MCV MCH MCHC RDW Plt Count MPV Absolute Neuts (auto) Neutrophils % Lymphocytes % Monocytes % Eosinophils % Basophils % Nucleated RBC % PT with INR INR PTT (Actin FS) Sodium Potassium Chloride Carbon Dioxide Anion Gap BUN Creatinine Est GFR (CKD-EPI)AfAm Est GFR (CKD-EPI)NonAf Random Glucose Calcium Phosphorus Magnesium Total Bilirubin AST ALT Alkaline Phosphatase Troponin I 0.18 H B-Natriuretic Peptide Total Protein Albumin Stool Occult Blood Influenza A (Rapid) Negative Influenza B (Rapid) Negative RSV Rapid Blood Type B POSITIVE Antibody Screen Crossmatch 01/10/19 01/11/19 01/11/19 15:50 01:01 05:30 WBC 5.8 6.5 RBC 2.42 L 2.38 L Hgb 6.6 L* 6.5 L* Hct 20.2 L D 19.5 L MCV 83.5 82.2 MCH 27.2 27.1 MCHC 32.6 33.0 RDW 17.7 H 17.3 H Plt Count 263 270 MPV 9.0 9.6 Absolute Neuts (auto) 5.4 Neutrophils % 83.2 H Lymphocytes % 12.5 Monocytes % 4.0 Eosinophils % 0.0 D Basophils % 0.3 Nucleated RBC % 0 PT with INR INR PTT (Actin FS) Sodium Potassium Chloride Carbon Dioxide Anion Gap BUN Creatinine Est GFR (CKD-EPI)AfAm Est GFR (CKD-EPI)NonAf Random Glucose Calcium Phosphorus Magnesium Total Bilirubin AST ALT Alkaline Phosphatase Troponin I B-Natriuretic Peptide Total Protein Albumin Stool Occult Blood Influenza A (Rapid) Influenza B (Rapid) RSV Rapid Negative Blood Type Antibody Screen Crossmatch 01/11/19 05:30 WBC RBC Hgb Hct MCV MCH MCHC RDW Plt Count MPV Absolute Neuts (auto) Neutrophils % Lymphocytes % Monocytes % Eosinophils % Basophils % Nucleated RBC % PT with INR INR PTT (Actin FS) Sodium 138 Potassium 4.4 Chloride 102 Carbon Dioxide 28 Anion Gap 7 L BUN 60 H Creatinine 3.0 H Est GFR (CKD-EPI)AfAm 16.79 Est GFR (CKD-EPI)NonAf 14.49 Random Glucose 118 H Calcium 9.3 Phosphorus 4.1 Magnesium 2.6 H Total Bilirubin 0.1 L AST 18 ALT 10 L Alkaline Phosphatase 47 Troponin I B-Natriuretic Peptide Total Protein 5.9 L Albumin 3.0 L Stool Occult Blood Influenza A (Rapid) Influenza B (Rapid) RSV Rapid Blood Type Antibody Screen Crossmatch CT Chest/A/P results reviewed CXR from today images and results reviewed ASSESSMENT AND PLAN: 78 yof with PMHx of invasive ductal R breast ca (10 years, recently worked up again, when reported declined chemoradiation), COPD on 2 L home oxygen, LLL PNA with pleural effusion s/p thoracocentesis transudative (09/2018), Chronic diastolic dysfunction, CAD (not reported PCI or intervention), HTN, HLD, CVA with no residual deficits hypothyroidism, gout admitted with dyspnea, severe anemia, pos FOBT and PATY on cKD -Acute on chronic hypoxic respiratory failure -Severe anemia, r/o GIB, ?PUD/gastritis from steroid use vs AVM, vs lower GI source/Mass/AVM compounded by AC use -Lingular atelectasis, r/o PNA -Acute on chronic diastolic Heart failure exacerbation -Elevated troponin, suspect demand type II NSTEMI, from above -PATY on CKD stage III, from suspected GI bleed, bactrim/diuretic use +/- hypovolumia -Afib with RVR, likely from above, on eliquis -Invasive ductal Right breast Ca reported refused treatment recently -LLE wound from trauma from breathing machine. -COPD on 2 L Home oxygen -HTN -HLD -h/o LLL PNA with pleural effusion s/p thoracocentesis (transudative) in 09/2018 -Gout -Hypothyroidism Plan: Overnight events noted. Currently on VM, breathing better. Bipap prn. CT chest noted. Emperic Ceftriaxone(tolerated well in the ED)/doxycycline. Follow up cultures. Urine PNA studies. Influenza/RSV neg. Nebs prn. Hold off on steroids given concerns for UGIB with severe anemia unless absolutely needed. Pulmonary consult. GI consulted, Continue protonix drip. Follow up for EGD based on clinical course and respiratory status. Hold eliquis. Lasix 20 mg IV x1, transfuse 2nd unit PRBC. Additional transfusion with lasix prn based on Hb. CT chest/A/p neg for bleed concerns. Cr unchanged with ongoing concerns for volume overload. Renal consult. Renal/Bladder US. Hold Bactrim Continue levothyroxine Hold eliquis. DVTPPX with SCDs, Duplex LLE neg. Wound care left leg. Code status; addressed in detail with patient, Initially unsure if wanted CPR/ intubation, later stated "only give 1 try". Has recently refused treatment for breast ca. Hematology input Will have palliative care input to address goals of care. Dispo ongoing close monitoring and low threshold for escalation of care in case of clinical deterioration. Plan discussed with patient and nursing in detail, all questions answered.
--- NOTE | 2019-01-11 11:43 | ECHO ---
Name: FREDRICK HERMAN Exam:Adult Echocardiogram Study Date: 01/11/2019 09:33 AM Age: 78 yrs Reason For Study: Assess LV Function Height: 64 in Weight: 153 lb BSA: 1.7 m2 MMode/2D Measurements & Calculations IVSd: 1.1 cm ACS: 1.9 cm LVIDd: 4.3 cm LVIDs: 2.9 cm LVPWd: 1.2 cm EDV(Teich): 84.8 ml LVOT diam: 2.0 cm ESV(Teich): 33.5 ml RV S Mihir: 12.7 cm/sec Doppler Measurements & Calculations Ao V2 max: 167.7 cm/sec LV V1 max P.3 mmHg Ao max P.3 mmHg LV V1 mean P.2 mmHg Ao V2 mean: 114.1 cm/sec LV V1 max: 76.4 cm/sec Ao mean P.7 mmHg LV V1 mean: 52.7 cm/sec Ao V2 VTI: 32.9 cm LV V1 VTI: 13.7 cm CONNOR(I,D): 1.3 cm2 CONNOR(V,D): 1.4 cm2 MR max mihir: 448.7 cm/sec SV(LVOT): 43.1 ml MR max P.5 mmHg Med Peak E' Mihir: 5.4 cm/sec Lat Peak E' Mihir: 6.2 cm/sec Procedure A complete two-dimensional transthoracic echocardiogram was performed (2D, M-mode, Doppler and color flow Doppler). Technically limited study. Left Ventricle The left ventricle is normal in size. Left ventricular systolic function is normal. Ejection Fraction = 55- 60%. No regional wall motion abnormalities noted. Right Ventricle The right ventricle is normal size. The right ventricular systolic function is normal. RV systolic TD I is 13 cm/s. Atria The left atrial size is normal. Right atrial size is normal. Mitral Valve There is mild mitral annular calcification. There is mild to moderate mitral regurgitation. Tricuspid Valve The tricuspid valve is normal in structure and function. There is mild tricuspid regurgitation. Aortic Valve There is mild aortic sclerosis.;. No aortic regurgitation is present. Pulmonic Valve The pulmonic valve is not well visualized. Great Vessels The aortic root is normal size. Pericardium/Pleura There is no pericardial effusion. Interpretation Summary Technically limited study The left ventricle is normal in size. Left ventricular systolic function is normal. No regional wall motion abnormalities noted. Ejection Fraction = 55-60%. The right ventricular systolic function is normal. The left atrial size is normal. Right atrial size is normal. There is mild mitral annular calcification. There is mild to moderate mitral regurgitation. There is mild tricuspid regurgitation. There is mild aortic sclerosis. There is no pericardial effusion. Yoel Easton MD 01/11/2019 11:43 AM
[2019-01-11] MEDS: PANTOPRAZOLE SODIUM 80 MG in SODIUM CHLORIDE 100 ML IVPB SCH ×3 (11:57→21:50)
[2019-01-11] MEDS: BACITRACIN 15 GM TUBE TOPICAL OINTMENT TP SCH (12:19)
--- NOTE | 2019-01-11 12:53 | CONSULT ---
Consult Consult Specialty:: Nephrology Reason for Consultation:: CKD - History of Present Illness Chief Complaint: fever and cough History of Present Illness: Pt is a 78 year old female with pmhx of dementia, COPD, CKD, htn, hypothryoidism and breast cancer who presents with cough and fever. She was found to have elevated creatinine and I was called to evaluate her. She does have history of CKD. She denies dysuria or hematuria. She was also found to be anemic. She felt that her breathing improved with lasix. She did not follow up in the office after her last admission.She denies nsaid use. - History Source History Provided By: Patient, Medical Record - Past Medical History Cardio/Vascular: Yes: CAD, HTN, [place] (25 yrs ago) Pulmonary: Yes: Bronchitis, COPD, O2 Dependent, Pneumonia Renal/: Yes: Renal Inusuff Endocrine: Yes: Hypothyroidism - Alcohol/Substance Use Hx Alcohol Use: No History of Substance Use: reports: None - Smoking History Smoking history: Current every day smoker Have you smoked in the past 12 months: Yes Aproximately how many cigarettes per day: 5 Home Medications - Allergies Allergies/Adverse Reactions: Allergies Allergy/AdvReac Type Severity Reaction Status Date / Time cefuroxime [From Ceftin] Allergy Verified 01/10/19 11:36 orange Allergy Verified 01/10/19 11:36 orange juice Allergy Verified 01/10/19 11:36 Penicillins Allergy Verified 01/10/19 11:36 - Home Medications Home Medications: Ambulatory Orders Allopurinol [Zyloprim -] 100 mg PO DAILY 08/30/18 Budesonide/Formeterol Fumarate [SYMBICORT 160/4.5mcg -] 2 inh PO BID 08/30/18 Calcium Carbonate/Vitamin D3 [Calcium 600+D Softgel] 2 each PO DAILY 08/30/18 Docusate Sodium [Colace] 100 mg PO BID 08/30/18 Levothyroxine [Synthroid -] 75 mcg PO DAILY 08/30/18 Apixaban [Eliquis -] 5 mg PO BID #20 tablet 09/30/18 Acetaminophen [Tylenol] 650 mg PO Q6H PRN 01/10/19 Albuterol Sulfate Inhaler - [Ventolin Hfa Inhaler -] 1 inh PO Q4H PRN 01/10/19 Albuterol Sulfate [Proair Hfa] 8.5 gm IH TID PRN 01/10/19 Amlodipine Besylate [Norvasc -] 10 mg PO DAILY 01/10/19 Bacitracin - [Bacitracin Topical Ointment -] 1 applic TP DAILY 01/10/19 Ferrous Sulfate [Iron] 143 mg PO DAILY 01/10/19 Furosemide 20 mg PO DAILY 01/10/19 Sulfamethoxazole/Trimethoprim [Bactrim Ds -] 1 tab PO BID 01/10/19 Umeclidinium [place] [Incruse Ellipta] 62.5 mcg IH DAILY 01/10/19 Family Disease History - Family Disease History Family Disease History: CA: Sister Review of Systems - Review of Systems Constitutional: reports: Chills, Malaise Eyes: reports: No Symptoms HENT: reports: No Symptoms Neck: reports: No Symptoms Cardiovascular: reports: Edema, Shortness of Breath Respiratory: reports: Cough, SOB, SOB on Exertion Gastrointestinal: reports: No Symptoms Genitourinary: reports: No Symptoms Musculoskeletal: reports: No Symptoms Integumentary: reports: No Symptoms Neurological: reports: No Symptoms Endocrine: reports: No Symptoms Hematology/Lymphatic: reports: No Symptoms Psychiatric: reports: No Symptoms Physical Exam Vital Signs: Vital Signs Temperature 97.6 F 01/11/19 09:00 Pulse Rate 94 H 01/11/19 09:00 Respiratory Rate 20 01/11/19 09:00 Blood Pressure 168/66 01/11/19 09:00 O2 Sat by Pulse Oximetry (%) 95 01/11/19 07:47 Constitutional: Yes: Calm Eyes: Yes: Conjunctiva Clear HENT: Yes: Atraumatic Cardiovascular: Yes: S1, S2 Respiratory: Yes: On Venti-Mask, Rhonchi Gastrointestinal: Yes: Soft Renal/: Yes: WNL Musculoskeletal: Yes: WNL Edema: Yes Integumentary: Yes: WNL Neurological: Yes: Oriented Psychiatric: Yes: Oriented Labs: CBC, BMP 01/11/19 05:30 01/11/19 05:30 Laboratory Tests 01/10/19 01/10/19 01/10/19 12:06 12:06 13:02 Hgb 5.6 L* BUN Creatinine 3.0 H Stool Occult Blood Positive 01/11/19 01/11/19 05:30 05:30 Hgb 6.5 L* BUN 60 H Creatinine 3.0 H Stool Occult Blood Imaging - Results Chest X-ray: Report Reviewed Problem List - Problems (1) Anemia Code(s): D64.9 - ANEMIA, UNSPECIFIED Qualifiers: Anemia type: iron deficiency Iron deficiency anemia type: chronic blood loss Qualified Code(s): D50.0 - Iron deficiency anemia secondary to blood loss (chronic) (2) CKD (chronic kidney disease) Code(s): N18.9 - CHRONIC KIDNEY DISEASE, UNSPECIFIED Qualifiers: Assessment/Plan Current Medications Generic Name Dose Route Start Last Admin Trade Name Freq PRN Reason Stop Dose Admin Acetaminophen 650 mg 01/10/19 16:07 Tylenol - PO Q6H PRN PAIN LEVEL 1-5 Albuterol Sulfate 1 amp 01/10/19 16:08 Ventolin 0.083% Nebulizer Soln - NEB Q4H PRN SHORT OF BREATH/WHEEZING Albuterol/Ipratropium 1 amp 01/10/19 20:00 01/11/19 11:28 Duoneb - NEB 1 amp RQID [facility] Administration Bacitracin 1 applic 01/11/19 10:00 01/11/19 12:19 Bacitracin - TP 1 applic DAILY [facility] Administration Budesonide/Formoterol Fumarate 2 puff 01/10/19 22:00 01/11/19 11:01 Symbicort 160/4.5mcg - IH 2 puff BID [facility] Administration Docusate Sodium 100 mg 01/10/19 22:00 01/11/19 11:06 Colace - PO 100 mg BID [facility] Administration Pantoprazole Sodium 80 mg/ 100 mls @ 10 mls/hr 01/10/19 15:45 01/11/19 11:57 Sodium Chloride IVPB Not Given Q10H [facility] 8 MG/HR Ceftriaxone Sodium 1 gm/ 50 mls @ 100 mls/hr 01/11/19 10:00 01/11/19 11:05 Dextrose IVPB 100 mls/hr DAILY [facility] Administration Protocol Doxycycline Hyclate 100 mg/ 100 mls @ 100 mls/hr 01/11/19 10:00 01/11/19 10: 56 Dextrose IVPB 100 mls/hr BID [facility] Administration Levothyroxine Sodium 75 mcg 01/11/19 07:00 01/11/19 06:05 Synthroid - PO 75 mcg DAILY@0700 [facility] Administration Laboratory Tests 11/04/18 01/10/19 15:30 12:06 Creatinine 2.3 H 3.0 H Impression 1. CKD 2. hypothyroidism 3. breast cancer 4. pleural effusion 5. gout 6. asthma 7. liver disease 8. copd 9. asthma 10. a-fib 11. PATY 12. anemia Plan - agree with lasix as she is overloaded - monitor hg, pt will get prbc - check ua and lytes - anemia may have contributed to paty - will order serologic workup, pt did not follow as outpt - avoid nsaids
--- NOTE | 2019-01-11 13:38 | CON.PULM ---
Consult Consult Specialty:: PULM/CCM Referred by:: JAMES Reason for Consultation:: SOB - History of Present Illness Chief Complaint: SOB History of Present Illness: 78 F,recent admission and workup for a pleural effusion s/p thoracentesis found to be transudative. Additional history of breast CA (10 years ago), COPD, anemia, HTN, hypothyroidism, dementia, and gout. Admitted via the ER due to worsening shortness of breath and orthopnea. Reports a non-productive cough. No hemoptysis or night sweats. Also found to be anemic, requiring pRBCs. No travel history or sick contacts. CT: lingular consolidation / small pleural effusions / 1.[address] - History Source History Provided By: Patient Limitations to Obtaining History: No Limitations - Past Medical History Cardio/Vascular: Yes: CAD, HTN, [place] (25 yrs ago) Pulmonary: Yes: Bronchitis, COPD, O2 Dependent, Pneumonia. No: Previously Intubated, Pulmonary Embolus, Pulmonary Fibrosis, Sleep Apnea Renal/: Yes: Renal Inusuff Endocrine: Yes: Hypothyroidism - Alcohol/Substance Use Hx Alcohol Use: No History of Substance Use: reports: None - Smoking History Smoking history: Current every day smoker Have you smoked in the past 12 months: Yes Aproximately how many cigarettes per day: 5 Home Medications - Allergies Allergies/Adverse Reactions: Allergies Allergy/AdvReac Type Severity Reaction Status Date / Time cefuroxime [From Ceftin] Allergy Verified 01/10/19 11:36 orange Allergy Verified 01/10/19 11:36 orange juice Allergy Verified 01/10/19 11:36 Penicillins Allergy Verified 01/10/19 11:36 - Home Medications Home Medications: Ambulatory Orders Allopurinol [Zyloprim -] 100 mg PO DAILY 08/30/18 Budesonide/Formeterol Fumarate [SYMBICORT 160/4.5mcg -] 2 inh PO BID 08/30/18 Calcium Carbonate/Vitamin D3 [Calcium 600+D Softgel] 2 each PO DAILY 08/30/18 Docusate Sodium [Colace] 100 mg PO BID 08/30/18 Levothyroxine [Synthroid -] 75 mcg PO DAILY 08/30/18 Apixaban [Eliquis -] 5 mg PO BID #20 tablet 09/30/18 Acetaminophen [Tylenol] 650 mg PO Q6H PRN 01/10/19 Albuterol Sulfate Inhaler - [Ventolin Hfa Inhaler -] 1 inh PO Q4H PRN 01/10/19 Albuterol Sulfate [Proair Hfa] 8.5 gm IH TID PRN 01/10/19 Amlodipine Besylate [Norvasc -] 10 mg PO DAILY 01/10/19 Bacitracin - [Bacitracin Topical Ointment -] 1 applic TP DAILY 01/10/19 Ferrous Sulfate [Iron] 143 mg PO DAILY 01/10/19 Furosemide 20 mg PO DAILY 01/10/19 Sulfamethoxazole/Trimethoprim [Bactrim Ds -] 1 tab PO BID 01/10/19 Umeclidinium [place] [Incruse Ellipta] 62.5 mcg IH DAILY 01/10/19 Family Disease History - Family Disease History Family Disease History: CA: Sister Review of Systems - Review of Systems Constitutional: denies: Chills, Fever Eyes: reports: No Symptoms HENT: reports: No Symptoms Neck: reports: No Symptoms Cardiovascular: reports: Shortness of Breath. denies: Chest Pain, Edema, Palpitations Respiratory: reports: Cough, SOB, SOB on Exertion. denies: Hemoptysis, Snoring , Wheezing Gastrointestinal: reports: No Symptoms Genitourinary: reports: No Symptoms Breasts: reports: No Symptoms Reported Musculoskeletal: reports: No Symptoms Integumentary: reports: No Symptoms Neurological: reports: No Symptoms Endocrine: reports: No Symptoms Hematology/Lymphatic: reports: No Symptoms Psychiatric: reports: No Symptoms Physical Exam Vital Sings: Vital Signs Temperature 97.6 F 01/11/19 09:00 Pulse Rate 94 H 01/11/19 09:00 Respiratory Rate 20 01/11/19 09:00 Blood Pressure 168/66 01/11/19 09:00 O2 Sat by Pulse Oximetry (%) 95 01/11/19 07:47 Constitutional: Yes: Mild Distress, Thin Eyes: Yes: Conjunctiva Clear, EOM Intact HENT: Yes: Atraumatic, Normocephalic Neck: Yes: Supple, Trachea Midline Cardiovascular: Yes: Tachycardia Respiratory: Yes: Cough, Diminished, On Venti-Mask, SOB, SOB on Exertion, Stridor, Tachypnea. No: Accessory Muscle Use, Wheezes ...Inspection: Yes: WNL ...Clubbing: No Gastrointestinal: Yes: Normal Bowel Sounds, Soft Renal/: Yes: WNL Musculoskeletal: Yes: WNL Extremities: Yes: WNL Edema: No Peripheral Pulses WNL: Yes Integumentary: Yes: WNL Neurological: Yes: WNL, Alert, Oriented ...Motor Strength: WNL Psychiatric: Yes: WNL, Alert, Oriented Labs: CBC, BMP 01/11/19 05:30 01/11/19 05:30 Imaging - Results Chest X-ray: Report Reviewed, Image Reviewed Cat Scan: Report Reviewed, Image Reviewed Problem List - Problems (1) Anemia Code(s): D64.9 - ANEMIA, UNSPECIFIED Qualifiers: Anemia type: iron deficiency Iron deficiency anemia type: chronic blood loss Qualified Code(s): D50.0 - Iron deficiency anemia secondary to blood loss (chronic) (2) Pneumonia Code(s): J18.9 - PNEUMONIA, UNSPECIFIED ORGANISM (3) A-fib Code(s): I48.91 - UNSPECIFIED ATRIAL FIBRILLATION Qualifiers: Atrial fibrillation type: paroxysmal Qualified Code(s): I48.0 - Paroxysmal atrial fibrillation (4) Allergy to multiple antibiotics Code(s): Z88.1 - ALLERGY STATUS TO OTHER ANTIBIOTIC AGENTS STATUS (5) Asthma Code(s): J45.909 - UNSPECIFIED ASTHMA, UNCOMPLICATED (6) Breast mass, right Code(s): N63.10 - UNSPECIFIED LUMP IN THE RIGHT BREAST, UNSPECIFIED QUADRANT (7) CHF (congestive heart failure) Code(s): I50.9 - HEART FAILURE, UNSPECIFIED Qualifiers: Heart failure type: diastolic Heart failure chronicity: acute on chronic Qualified Code(s): I50.33 - Acute on chronic diastolic (congestive) heart failure (8) CKD (chronic kidney disease) Code(s): N18.9 - CHRONIC KIDNEY DISEASE, UNSPECIFIED Qualifiers: (9) Cough Code(s): R05 - COUGH (10) Diastolic dysfunction Code(s): I51.9 - HEART DISEASE, UNSPECIFIED (11) Dyspnea Code(s): R06.00 - DYSPNEA, UNSPECIFIED Qualifiers: Dyspnea type: shortness of breath Qualified Code(s): R06.02 - Shortness of breath; R06.00 - Dyspnea, unspecified; R06.01 - Orthopnea (12) Gout Code(s): M10.9 - GOUT, UNSPECIFIED (13) H/O malignant neoplasm of breast Code(s): Z85.3 - PERSONAL HISTORY OF MALIGNANT NEOPLASM OF BREAST (14) HTN (hypertension) Code(s): I10 - ESSENTIAL (PRIMARY) HYPERTENSION Qualifiers: Hypertension type: essential hypertension Qualified Code(s): I10 - Essential (primary) hypertension (15) Pleural effusion Code(s): J90 - PLEURAL EFFUSION, NOT ELSEWHERE CLASSIFIED Assessment/Plan Rocephin / Doxy O2 as needed to maintain saturation BD TX PRN Medrol Check sputum Check urine antigen Will need repeat imaging 4 to 6 weeks after discharge Will follow Thank you. Dr Ferrer
--- NOTE | 2019-01-11 14:27 | PN ---
Physical Exam: SUBJECTIVE: Patient seen and examined at bedside. Feels well on ventimask. No BMs with dark, tarry stool or brbpr. No chest pain, sob, abd pain. OBJECTIVE: Vital Signs Temperature 97.6 F 01/11/19 09:00 Pulse Rate 94 H 01/11/19 09:00 Respiratory Rate 20 01/11/19 09:00 Blood Pressure 168/66 01/11/19 09:00 O2 Sat by Pulse Oximetry (%) 99 01/11/19 09:00 GENERAL: The patient is awake, alert, and fully oriented, in no acute distress. Speaking in full sentences with ventimask on. HEAD: Normal with no signs of trauma. ENT: Ears normal, nares patent LUNGS: b/l wheezing HEART: Regular rate and rhythm, S1, S2 ABDOMEN: Soft, nontender, nondistended, normoactive bowel sounds. EXTREMITIES: warm, well-perfused, no edema. NEUROLOGICAL: Cranial nerves II through XII grossly intact. Normal speech, gait not observed. PSYCH: Normal mood, normal affect. SKIN: Warm, dry Laboratory Results - last 24 hr 01/10/19 01/10/19 01/10/19 13:02 15:07 15:07 WBC RBC Hgb Hct MCV MCH MCHC RDW Plt Count MPV Absolute Neuts (auto) Neutrophils % Lymphocytes % Monocytes % Eosinophils % Basophils % Nucleated RBC % Sodium Potassium Chloride Carbon Dioxide Anion Gap BUN Creatinine Est GFR (CKD-EPI)AfAm Est GFR (CKD-EPI)NonAf Random Glucose Calcium Phosphorus Magnesium Total Bilirubin AST ALT Alkaline Phosphatase Troponin I 0.18 H Total Protein Albumin Influenza A (Rapid) Influenza B (Rapid) RSV Rapid Blood Type B POSITIVE B POSITIVE Antibody Screen Negative Crossmatch See Detail 01/10/19 01/10/19 01/11/19 15:50 15:50 01:01 WBC 5.8 RBC 2.42 L Hgb 6.6 L* Hct 20.2 L D MCV 83.5 MCH 27.2 MCHC 32.6 RDW 17.7 H Plt Count 263 MPV 9.0 Absolute Neuts (auto) Neutrophils % Lymphocytes % Monocytes % Eosinophils % Basophils % Nucleated RBC % Sodium Potassium Chloride Carbon Dioxide Anion Gap BUN Creatinine Est GFR (CKD-EPI)AfAm Est GFR (CKD-EPI)NonAf Random Glucose Calcium Phosphorus Magnesium Total Bilirubin AST ALT Alkaline Phosphatase Troponin I Total Protein Albumin Influenza A (Rapid) Negative Influenza B (Rapid) Negative RSV Rapid Negative Blood Type Antibody Screen Crossmatch 01/11/19 01/11/19 05:30 05:30 WBC 6.5 RBC 2.38 L Hgb 6.5 L* Hct 19.5 L MCV 82.2 MCH 27.1 MCHC 33.0 RDW 17.3 H Plt Count 270 MPV 9.6 Absolute Neuts (auto) 5.4 Neutrophils % 83.2 H Lymphocytes % 12.5 Monocytes % 4.0 Eosinophils % 0.0 D Basophils % 0.3 Nucleated RBC % 0 Sodium 138 Potassium 4.4 Chloride 102 Carbon Dioxide 28 Anion Gap 7 L BUN 60 H Creatinine 3.0 H Est GFR (CKD-EPI)AfAm 16.79 Est GFR (CKD-EPI)NonAf 14.49 Random Glucose 118 H Calcium 9.3 Phosphorus 4.1 Magnesium 2.6 H Total Bilirubin 0.1 L AST 18 ALT 10 L Alkaline Phosphatase 47 Troponin I Total Protein 5.9 L Albumin 3.0 L Influenza A (Rapid) Influenza B (Rapid) RSV Rapid Blood Type Antibody Screen Crossmatch Active Medications Generic Name Dose Route Start Last Admin Trade Name Freq PRN Reason Stop Dose Admin Acetaminophen 650 mg 01/10/19 16:07 Tylenol - PO Q6H PRN PAIN LEVEL 1-5 Albuterol Sulfate 1 amp 01/10/19 16:08 Ventolin 0.083% Nebulizer Soln - NEB Q4H PRN SHORT OF BREATH/WHEEZING Albuterol/Ipratropium 1 amp 01/10/19 20:00 01/11/19 11:28 Duoneb - NEB 1 amp RQID KASSIDY Administration Bacitracin 1 applic 01/11/19 10:00 01/11/19 12:19 Bacitracin - TP 1 applic DAILY KASSIDY Administration Budesonide/Formoterol Fumarate 2 puff 01/10/19 22:00 01/11/19 11:01 Symbicort 160/4.5mcg - IH 2 puff BID KASSIDY Administration Docusate Sodium 100 mg 01/10/19 22:00 01/11/19 11:06 Colace - PO 100 mg BID KASSIDY Administration Pantoprazole Sodium 80 mg/ 100 mls @ 10 mls/hr 01/10/19 15:45 01/11/19 11:57 Sodium Chloride IVPB Not Given Q10H KASSIDY 8 MG/HR Ceftriaxone Sodium 1 gm/ 50 mls @ 100 mls/hr 01/11/19 10:00 01/11/19 11:05 Dextrose IVPB 100 mls/hr DAILY KASSIDY Administration Protocol Doxycycline Hyclate 100 mg/ 100 mls @ 100 mls/hr 01/11/19 10:00 01/11/19 10: 56 Dextrose IVPB 100 mls/hr BID KASSIDY Administration Levothyroxine Sodium 75 mcg 01/11/19 07:00 01/11/19 06:05 Synthroid - PO 75 mcg DAILY@0700 KASSIDY Administration Methylprednisolone Sodium Succinate 40 mg 01/11/19 14:00 Solu-Medrol - IVPUSH DAILY KASSIDY ASSESSMENT/PLAN: 78 y/o F w/PMH of invasive ductal R breast ca (dx'd 10 years ago, recently declined chemo/RT), COPD (on 2L home O2), dCHF, CAD, HTN, HLD, CVA (w/no residual deficits), hypothyroidism, gout, recent LLL Pna with pleural effusion s /p thoracentesis (09/2018) admitted for SOB, anemia (requiring transfusion), FOBT +, and PATY on CKD. -SOB (acute on chronic hypoxic respiratory failure) -secondary to possible pna vs acute on chronic chf exacerbation superimposed with anemia and COPD exacerbation -Anemia -FOBT+, GI following, 2 units PRBC (will reassess after second unit to see if she needs further transfusions). -PPI drip -lasix 20mg IV once ordered -will need to have more stable respiratory status before EGD/cscope -transfuse to keep Hgb >8 -acute on chronic CHF exacerbation -Bipap prn, currently on VM -monitor i/os, daily weights -PNA -ceftriaxone and doxy -f/u BCx -COPD exacerbation -Pulm following -Duo-neb QID, alb nebs PRN, symbicort, bipap PRN, O2 supp to keep saturation above 90% (on home O2 at 2L) -solu-medrol 40 mg IVP qd -CT C/A/P: lingular consolidation/atelectasis, small b/l pleural effusions w/ bibasilar atelectasis, mod renal atrophy R>L, large ventral hernia anterior abdominal wall. -Hypothyroidism -c/w synthroid 75mcg qAM -PATY on CKD -Cr 3, continue to monitor -Nephrology following -check urine lytes -avoid nephrotoxic agents -Hx of breast ca -Palliative consult as pt does not want treatment -Afib -Hold AC with anemia -Echo noted, mostly unremarkable -HTN -restart norvasc 10mg qd if hypertensive -LLE wound -wound care. LLE duplex US negative for DVT -DVT ppx -SCDs -FEN -No fluids -Monitor electrolytes -NPO for now in case of GI bleed -Dispo: Monitor on tele Visit type - Emergency Visit Emergency Visit: Yes ED Registration Date: 01/10/19 Care time: The patient presented to the Emergency Department on the above date and was hospitalized for further evaluation of their emergent condition. - New Patient This patient is new to me today: Yes Date on this admission: 01/11/19 - Critical Care Critical Care patient: No
--- NOTE | 2019-01-11 15:09 | EKG ---
Test Reason : Blood Pressure : / mmHG Vent. Rate : 085 BPM Atrial Rate : 085 BPM P-R Int : 256 ms QRS Dur : 172 ms QT Int : 436 ms P-R-T Axes : 072 -59 031 degrees QTc Int : 518 ms SINUS RHYTHM WITH 1ST DEGREE A-V BLOCK WITH PREMATURE SUPRAVENTRICULAR COMPLEXES LEFT AXIS DEVIATION RIGHT BUNDLE BRANCH BLOCK MINIMAL VOLTAGE CRITERIA FOR LVH, MAY BE NORMAL VARIANT SEPTAL INFARCT (CITED ON OR BEFORE 24-SEP-2018) ABNORMAL ECG WHEN COMPARED WITH ECG OF 10-JAN-2019 11:23, SINUS RHYTHM HAS REPLACED ATRIAL FIBRILLATION T WAVE VARIATION Confirmed by CHAMP REYES MD ([id number]) on 01/11/2019 3:08:31 PM Referred By: DANILO ROUSE Confirmed By:CHAMP REYES MD
[2019-01-11] MEDS: methylPREDNISolone NA SUCC 40 MG/1 ML VIAL IVPUSH SCH (15:16)
--- NOTE | 2019-01-11 15:22 | CONSULT ---
Consultation: REQUESTING PROVIDER: CONSULT REQUEST: We have been asked to medically evaluate this patient for ( specify). HISTORY OF PRESENT ILLNESS: This is a 78 yo f with PMH of invasive ductal R breast ca (dx 10 years ago, recently worked up again, when reported declined chemoradiation), COPD on 2 L home oxygen, LLL PNA with pleural effusion s/p thoracocentesis transudative (2018), HFPEF, CAD (not reported PCI or intervention), HTN, HLD, CVA with no residual deficits hypothyroidism, gout, who presented with worsening sob and cough with blood tinged sputum x 4 d. Patient admitted for acute on chronic respiratory failure due to pna vs chf exacerbation. Patient was unable to provide CA history today due to new memory loss and lethargy. ER course was notable for: (1) hb 5.5 with post FOBT (2) Tn 0.16-> 0.18 (3) GI consulted, on protonix drip. REVIEW OF SYSTEMS: CONSTITUTIONAL: Absent: fever, chills HEENT: Absent: rhinorrhea, nasal congestion, throat pain CARDIOVASCULAR: Absent: chest pain, syncope, palpitations, irregular heart rate RESPIRATORY: Absent: cough, shortness of breath, dyspnea with exertion GASTROINTESTINAL: Absent: abdominal pain, abdominal distension, nausea, vomiting, diarrhea, constipation, melena, hematochezia GENITOURINARY: Absent: dysuria, hematuria MUSCULOSKELETAL: Absent: back pain, neck pain SKIN: Absent: rash, itching, pallor HEMATOLOGIC/IMMUNOLOGIC: Absent: easy bleeding, easy bruising ENDOCRINE: Absent: unexplained weight gain, unexplained weight loss NEUROLOGIC: Absent: headache, focal weakness or paresthesias PSYCHIATRIC: Absent: anxiety, depression PHYSICAL EXAMINATION Vital Signs - 24 hr 01/10/19 01/10/19 01/10/19 16:50 18:35 21:00 Temperature 98 F 97.6 F 98.3 F Pulse Rate 100 H 96 H Pulse Rate [ 88 Apical] Respiratory 18 24 H 24 H Rate Blood Pressure 125/57 L 127/60 Blood Pressure 110/68 [Right Arm] O2 Sat by Pulse 96 95 91 L Oximetry (%) 01/11/19 01/11/19 01/11/19 01:00 02:30 05:00 Temperature 97.7 F Pulse Rate 91 H 93 H Pulse Rate [ Apical] Respiratory 20 20 Rate Blood Pressure 134/70 128/70 Blood Pressure [Right Arm] O2 Sat by Pulse 93 L Oximetry (%) 01/11/19 01/11/19 01/11/19 06:00 07:47 09:00 Temperature 97.6 F Pulse Rate 94 H Pulse Rate [ Apical] Respiratory 20 Rate Blood Pressure 168/66 Blood Pressure [Right Arm] O2 Sat by Pulse 95 95 99 Oximetry (%) GENERAL: Awake, alert, slightly confused, somnolent, in no acute distress. HEAD: Normal with no signs of trauma. EYES: extraocular movements intact, sclera anicteric, conjunctiva clear. No lid lag. EARS, NOSE, THROAT: Moist mucous membranes. NECK: supple without lymphadenopathy LUNGS: diffuse ronchi and wheezing HEART: Regular rate and rhythm, normal S1 and S2 ABDOMEN: Soft, nontender, not distended, normoactive bowel sounds, no guarding, no rebound, no masses. MUSCULOSKELETAL: No CVA tenderness. UPPER EXTREMITIES: 2+ pulses, warm, well-perfused. No peripheral edema. LOWER EXTREMITIES: warm, well-perfused. No calf tenderness. No peripheral edema. NEUROLOGICAL: Cranial nerves II-XII grossly intact. Normal speech. PSYCHIATRIC: Cooperative. Good eye contact. Appropriate mood and affect. SKIN: Warm, dry Laboratory Results - last 24 hr 01/10/19 01/10/19 01/10/19 13:02 15:07 15:07 WBC RBC Hgb Hct MCV MCH MCHC RDW Plt Count MPV Absolute Neuts (auto) Neutrophils % Lymphocytes % Monocytes % Eosinophils % Basophils % Nucleated RBC % Sodium Potassium Chloride Carbon Dioxide Anion Gap BUN Creatinine Est GFR (CKD-EPI)AfAm Est GFR (CKD-EPI)NonAf Random Glucose Calcium Phosphorus Magnesium Total Bilirubin AST ALT Alkaline Phosphatase Troponin I 0.18 H Total Protein Albumin Influenza A (Rapid) Influenza B (Rapid) RSV Rapid Blood Type B POSITIVE B POSITIVE Antibody Screen Negative Crossmatch See Detail 01/10/19 01/10/19 01/11/19 15:50 15:50 01:01 WBC 5.8 RBC 2.42 L Hgb 6.6 L* Hct 20.2 L D MCV 83.5 MCH 27.2 MCHC 32.6 RDW 17.7 H Plt Count 263 MPV 9.0 Absolute Neuts (auto) Neutrophils % Lymphocytes % Monocytes % Eosinophils % Basophils % Nucleated RBC % Sodium Potassium Chloride Carbon Dioxide Anion Gap BUN Creatinine Est GFR (CKD-EPI)AfAm Est GFR (CKD-EPI)NonAf Random Glucose Calcium Phosphorus Magnesium Total Bilirubin AST ALT Alkaline Phosphatase Troponin I Total Protein Albumin Influenza A (Rapid) Negative Influenza B (Rapid) Negative RSV Rapid Negative Blood Type Antibody Screen Crossmatch 01/11/19 01/11/19 05:30 05:30 WBC 6.5 RBC 2.38 L Hgb 6.5 L* Hct 19.5 L MCV 82.2 MCH 27.1 MCHC 33.0 RDW 17.3 H Plt Count 270 MPV 9.6 Absolute Neuts (auto) 5.4 Neutrophils % 83.2 H Lymphocytes % 12.5 Monocytes % 4.0 Eosinophils % 0.0 D Basophils % 0.3 Nucleated RBC % 0 Sodium 138 Potassium 4.4 Chloride 102 Carbon Dioxide 28 Anion Gap 7 L BUN 60 H Creatinine 3.0 H Est GFR (CKD-EPI)AfAm 16.79 Est GFR (CKD-EPI)NonAf 14.49 Random Glucose 118 H Calcium 9.3 Phosphorus 4.1 Magnesium 2.6 H Total Bilirubin 0.1 L AST 18 ALT 10 L Alkaline Phosphatase 47 Troponin I Total Protein 5.9 L Albumin 3.0 L Influenza A (Rapid) Influenza B (Rapid) RSV Rapid Blood Type Antibody Screen Crossmatch Active Medications Generic Name Dose Route Start Last Admin Trade Name Freq PRN Reason Stop Dose Admin Acetaminophen 650 mg 01/10/19 16:07 Tylenol - PO Q6H PRN PAIN LEVEL 1-5 Albuterol Sulfate 1 amp 01/10/19 16:08 Ventolin 0.083% Nebulizer Soln - NEB Q4H PRN SHORT OF BREATH/WHEEZING Albuterol/Ipratropium 1 amp 01/10/19 20:00 01/11/19 11:28 Duoneb - NEB 1 amp RQID KASSIDY Administration Bacitracin 1 applic 01/11/19 10:00 01/11/19 12:19 Bacitracin - TP 1 applic DAILY KASSIDY Administration Budesonide/Formoterol Fumarate 2 puff 01/10/19 22:00 01/11/19 11:01 Symbicort 160/4.5mcg - IH 2 puff BID KASSIDY Administration Docusate Sodium 100 mg 01/10/19 22:00 01/11/19 11:06 Colace - PO 100 mg BID KASSIDY Administration Pantoprazole Sodium 80 mg/ 100 mls @ 10 mls/hr 01/10/19 15:45 01/11/19 11:57 Sodium Chloride IVPB Not Given Q10H KASSIDY 8 MG/HR Ceftriaxone Sodium 1 gm/ 50 mls @ 100 mls/hr 01/11/19 10:00 01/11/19 11:05 Dextrose IVPB 100 mls/hr DAILY KASSIDY Administration Protocol Doxycycline Hyclate 100 mg/ 100 mls @ 100 mls/hr 01/11/19 10:00 01/11/19 10: 56 Dextrose IVPB 100 mls/hr BID KASSIDY Administration Levothyroxine Sodium 75 mcg 01/11/19 07:00 01/11/19 06:05 Synthroid - PO 75 mcg DAILY@0700 KASSIDY Administration Methylprednisolone Sodium Succinate 40 mg 01/11/19 14:00 01/11/19 15:16 Solu-Medrol - IVPUSH 40 mg DAILY KASSIDY Administration ASSESSMENT/PLAN: This is a 78 yo f with PMH of invasive ductal R breast ca (dx 10 years ago, recently worked up again, when reported declined chemoradiation), COPD on 2 L home oxygen, LLL PNA with pleural effusion s/p thoracocentesis transudative (2018),HFPEF, CAD (not reported PCI or intervention), HTN, HLD, CVA with no residual deficits hypothyroidism, gout, who presented with worsening sob and cough with blood tinged sputum x 4 d. invasive ductal R breast ca severe symtomatic anemia acute on chronic hypoxic respirtory failure copd on home o2 LLL effusion CAD HFPEF HTN HLD CHF -apparently recently refused treatment but unable to provide any useful history. will discuss again when patients mental status/memory improves -should have been on anastrazole for about a month and a half, will obtain med list from custodial. -breast biopsy done november 16 -continue transfusion prbcs, rend h/h -f/u anemia workup -gi on case Dispo: We will continue to follow the patient. Thank you for this consultative opportunity. Problem List - Problems (1) Anemia Code(s): D64.9 - ANEMIA, UNSPECIFIED Qualifiers: Anemia type: iron deficiency Iron deficiency anemia type: chronic blood loss Qualified Code(s): D50.0 - Iron deficiency anemia secondary to blood loss (chronic) (2) Pneumonia Code(s): J18.9 - PNEUMONIA, UNSPECIFIED ORGANISM (3) A-fib Code(s): I48.91 - UNSPECIFIED ATRIAL FIBRILLATION Qualifiers: Atrial fibrillation type: paroxysmal Qualified Code(s): I48.0 - Paroxysmal atrial fibrillation (4) Acute exacerbation of chronic obstructive airways disease Code(s): J44.1 - CHRONIC OBSTRUCTIVE PULMONARY DISEASE W (ACUTE) EXACERBATION (5) Breast mass, right Code(s): N63.10 - UNSPECIFIED LUMP IN THE RIGHT BREAST, UNSPECIFIED QUADRANT (6) CHF (congestive heart failure) Code(s): I50.9 - HEART FAILURE, UNSPECIFIED Qualifiers: Heart failure type: diastolic Heart failure chronicity: acute on chronic Qualified Code(s): I50.33 - Acute on chronic diastolic (congestive) heart failure Visit type - Emergency Visit Emergency Visit: Yes ED Registration Date: 01/10/19 Care time: The patient presented to the Emergency Department on the above date and was hospitalized for further evaluation of their emergent condition. - New Patient This patient is new to me today: Yes Date on this admission: 01/12/19 - Critical Care Critical Care patient: No
--- NOTE | 2019-01-11 15:37 | CON.GI ---
Consult Consult Specialty:: GI Referred by:: Medicine Reason for Consultation:: anemia - History of Present Illness Chief Complaint: SOB History of Present Illness: 78 yof with PMHx of invasive ductal R breast ca (10 years, recently worked up again, when reported declined chemoradiation), COPD on 2 L home oxygen, LLL PNA with pleural effusion, Chronic diastolic dysfunction, CAD, HTN, HLD, CVA with no residual deficits, hypothyroidism, gout, on Eliquis, admitted for SOB. Found to have acute anemia to 5.5 for which GI was consulted. Pt reports worsening SOB over the last 1.5 weeks. Denies hematochezia. Reports last bm 2 days ago was hard and dark brown. No abdominal pain. Sometimes nausea, no emesis. Unknown when last endoscopy/colonoscopy. Received 1 unit PRBC by primary team and responded appropriately but became more SOB so on 35% ventimask when interviewed. - History Source History Provided By: Patient Limitations to Obtaining History: No Limitations - Past Medical History Cardio/Vascular: Yes: CAD, HTN, ID (25 yrs ago) Pulmonary: Yes: Bronchitis, COPD, O2 Dependent, Pneumonia. No: Previously Intubated, Pulmonary Embolus, Pulmonary Fibrosis, Sleep Apnea Renal/: Yes: Renal Inusuff Endocrine: Yes: Hypothyroidism - Alcohol/Substance Use Hx Alcohol Use: No History of Substance Use: reports: None - Smoking History Smoking history: Current every day smoker Have you smoked in the past 12 months: Yes Aproximately how many cigarettes per day: 5 Home Medications - Allergies Allergies/Adverse Reactions: Allergies Allergy/AdvReac Type Severity Reaction Status Date / Time cefuroxime [From Ceftin] Allergy Verified 01/10/19 11:36 orange Allergy Verified 01/10/19 11:36 orange juice Allergy Verified 01/10/19 11:36 Penicillins Allergy Verified 01/10/19 11:36 - Home Medications Home Medications: Ambulatory Orders Allopurinol [Zyloprim -] 100 mg PO DAILY 08/30/18 Budesonide/Formeterol Fumarate [SYMBICORT 160/4.5mcg -] 2 inh PO BID 08/30/18 Calcium Carbonate/Vitamin D3 [Calcium 600+D Softgel] 2 each PO DAILY 08/30/18 Docusate Sodium [Colace] 100 mg PO BID 08/30/18 Levothyroxine [Synthroid -] 75 mcg PO DAILY 08/30/18 Apixaban [Eliquis -] 5 mg PO BID #20 tablet 09/30/18 Acetaminophen [Tylenol] 650 mg PO Q6H PRN 01/10/19 Albuterol Sulfate Inhaler - [Ventolin Hfa Inhaler -] 1 inh PO Q4H PRN 01/10/19 Albuterol Sulfate [Proair Hfa] 8.5 gm IH TID PRN 01/10/19 Amlodipine Besylate [Norvasc -] 10 mg PO DAILY 01/10/19 Bacitracin - [Bacitracin Topical Ointment -] 1 applic TP DAILY 01/10/19 Ferrous Sulfate [Iron] 143 mg PO DAILY 01/10/19 Furosemide 20 mg PO DAILY 01/10/19 Sulfamethoxazole/Trimethoprim [Bactrim Ds -] 1 tab PO BID 01/10/19 Umeclidinium [place] [Incruse Ellipta] 62.5 mcg IH DAILY 01/10/19 Family Disease History - Family Disease History Family Disease History: CA: Sister Review of Systems - Review of Systems Constitutional: reports: No Symptoms Eyes: reports: No Symptoms HENT: reports: No Symptoms Neck: reports: No Symptoms Cardiovascular: reports: No Symptoms Respiratory: reports: SOB Gastrointestinal: reports: Nausea. denies: Abdominal Pain, Constipation, Diarrhea Musculoskeletal: reports: No Symptoms Neurological: reports: No Symptoms Endocrine: reports: No Symptoms Hematology/Lymphatic: reports: No Symptoms Physical Exam-GI Vital Signs: Vital Signs Temperature 97.6 F 01/11/19 09:00 Pulse Rate 94 H 01/11/19 09:00 Respiratory Rate 20 01/11/19 09:00 Blood Pressure 168/66 01/11/19 09:00 O2 Sat by Pulse Oximetry (%) 99 01/11/19 09:00 Constitutional: Yes: Well Nourished, No Distress Eyes: Yes: Conjunctiva Clear HENT: Yes: Atraumatic, Normocephalic Cardiovascular: Yes: Regular Rate and Rhythm Respiratory: Yes: CTA Bilaterally Gastrointestinal Inspection: Yes: Hernia ...Palpate: Yes: Soft. No: Tenderness ...Rectal Exam: Yes: Other (External no lesions, ASAD without blood or mass, hard scant dark brown stool) Edema: No Neurological: Yes: Alert, Oriented Psychiatric: Yes: Alert, Oriented Labs: CBC, BMP 01/11/19 05:30 05/13/19 05:30 INR, PTT INR 0.97 (0.83-1.09) 01/10/19 13:02 Assessment/Plan Anemia, FOBT+. Differential includes upper sources such as PUD, ectasia, neoplasm, vs lower - polyp, ectasia, neoplasm. Has nausea and dark stool x1 albeit hard as only localizing features to support upper. Given comorbidities, patient is unsure if she wants to undergo endoscopic evaluation at this time. Explained R/B/L/A to her in detail, and explained if performed, it would be performed after she became euvolemic. Would recommend - once daily PPI - trend hgb - if possible, add iron studies and ferritin to pre-transfusion CBC - once euvolemic, please call GI back so that we can address with patient if she wants endoscopic evaluation - would favor EGD first given the above
[2019-01-11 19:11] LABS: RATIO URIN PROTEIN/URIN CREAT 0.71 MG/DL
[2019-01-11 19:21] LABS: EPI CELLS 0.3 /HPF (0-5/HPF); HYALINE CASTS 1 /lpf (0-8); URINE APPEARANCE CLEAR; URINE BACTERIA 1.5 /hpf (NEGATIVE); URINE BILIRUBIN NEGATIVE (NEGATIVE); URINE COLOR YELLOW; URINE GLUCOSE (UA) NEGATIVE (NEGATIVE); URINE KETONE NEGATIVE (NEGATIVE); URINE LEUK ESTERASE TRACE (NEGATIVE); URINE NITRITE NEGATIVE (NEGATIVE); URINE PROTEIN NEGATIVE (NEGATIVE); URINE RBC 3 /hpf (0-4); URINE UROBILINOGEN 0.2 mg/dL (0.2-1.0); URINE WBC 2 /hpf (0-5)
[2019-01-11 19:48] LABS: HEMATOCRIT 25.5 % (32.4-45.2); HEMOGLOBIN 8.1 GM/dL (10.7-15.3); MCH 26.8 pg (25.7-33.7); MCHC 31.7 g/dl (32.0-36.0); MEAN CELL VOLUME 84.4 fl (80-96); MEAN PLT VOLUME 10.1 fl (7.5-11.1); PLATELET COUNT 291 K/MM3 (134-434); RBC 3.02 M/mm3 (3.60-5.2); WHITE BLOOD COUNT 11.8 K/mm3 (4.0-10.0)
--- NOTE | 2019-01-11 23:06 | PN ---
Teaching Attending Note Name of Resident: Janet Nunez ATTENDING PHYSICIAN STATEMENT I saw and evaluated the patient. I reviewed the resident's note and discussed the case with the resident. I agree with the resident's findings and plan as documented. ASSESSMENT AND PLAN: 78 F,recent admission and workup for a pleural effusion s/p thoracentesis found to be transudative. Additional history of breast CA (10 years ago), COPD, anemia, HTN, hypothyroidism, dementia, and gout. Admitted via the ER due to worsening shortness of breath and orthopnea. Reports a non-productive cough. CT: lingular consolidation / small pleural effusions / 1.[address] Also found to be severely anemic, Hgb 5-6, getting transfused. GI consulted Markedly elevated BNP h/o breast mass for several yrs., patient had refused biopsies and treatment. 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 differentiated,ER-100%, MD-100%, Her2 -, Ki67 <10% Patient was started on AI and PET-CT ordered Patient reports taking the AI but does not recall which one. Will add anastrozole
[2019-01-12] MEDS: LEVOTHYROXINE NA 75 MCG TABLET (FP) PO SCH (06:18)
[2019-01-12 07:13] LABS: HEMATOCRIT 22.1 % (32.4-45.2); HEMOGLOBIN 7.5 GM/dL (10.7-15.3); MCH 27.9 pg (25.7-33.7); MCHC 33.7 g/dl (32.0-36.0); MEAN CELL VOLUME 82.8 fl (80-96); MEAN PLT VOLUME 10.1 fl (7.5-11.1); PLATELET COUNT 263 K/MM3 (134-434); RBC 2.68 M/mm3 (3.60-5.2); RDW 16.6 % (11.6-15.6); WHITE BLOOD COUNT 8.5 K/mm3 (4.0-10.0)
[2019-01-12] MEDS: ALBUTEROL SO4 2.5/IPRATROPIUM 0.5 INH SOL 3 ML VIAL.NEB. NEB SCH ×4 (07:35→20:35)
[2019-01-12 07:43] LABS: CALCIUM 8.9 mg/dL (8.5-10.1); CREATININE 3.1 mg/dL (0.55-1.3); POTASSIUM 4.1 mmol/L (3.5-5.1)
[2019-01-12] MEDS: PANTOPRAZOLE SODIUM 80 MG in SODIUM CHLORIDE 100 ML IVPB SCH ×2 (07:45→18:04)
[2019-01-12] MEDS ORDERED: cefTRIAXone SODIUM 1 GM VIAL ONE (09:57)
[2019-01-12] MEDS ORDERED: DEXTROSE 5%-WATER - 50 ML IVPB ONE (09:57)
[2019-01-12] MEDS: methylPREDNISolone NA SUCC 40 MG/1 ML VIAL IVPUSH SCH (10:12)
[2019-01-12] MEDS: CEFTRIAXONE 1 GM in DEXTROSE 5%-WATER - 50 ML IVPB SCH (10:12)
[2019-01-12] MEDS: DOCUSATE SODIUM 100 MG CAPSULE (FP) PO SCH ×2 (10:12→21:13)
[2019-01-12] MEDS: BUDESONIDE/FORMETEROL FUMARATE 160/4.5 mcg INHALER IH SCH ×2 (10:13→21:13)
[2019-01-12] MEDS: BACITRACIN 15 GM TUBE TOPICAL OINTMENT TP SCH (10:13)
[2019-01-12] MEDS ORDERED: PT OWN MED DRAWER 7, Y5N ONE (10:14)
[2019-01-12] MEDS: DOXYCYCLINE INJECTION 100 MG in DEXTROSE 5%-WATER - 100 ML IVPB SCH ×2 (10:15→21:14)
[2019-01-12] MEDS ORDERED: FUROSEMIDE 40 MG/4 ML INJECTABLE VIAL IVPUSH SCH (10:29)
--- NOTE | 2019-01-12 10:58 | PN ---
Progress Note, Physician History of Present Illness: pulmonary alert,feeling better,less dyspneic,less cough - Current Medication List Current Medications: Active Medications Acetaminophen (Tylenol -) 650 mg PO Q6H PRN PRN Reason: PAIN LEVEL 1-5 Albuterol Sulfate (Ventolin 0.083% Nebulizer Soln -) 1 amp NEB Q4H PRN PRN Reason: SHORT OF BREATH/WHEEZING Albuterol/Ipratropium (Duoneb -) 1 amp NEB RQID [facility] Last Admin: 01/12/19 07:35 Dose: 1 amp Bacitracin (Bacitracin -) 1 applic TP DAILY [facility] Last Admin: 01/12/19 10:13 Dose: 1 applic Budesonide/Formoterol Fumarate (Symbicort 160/4.5mcg -) 2 puff IH BID [facility] Last Admin: 01/12/19 10:13 Dose: 2 puff Docusate Sodium (Colace -) 100 mg PO BID [facility] Last Admin: 01/12/19 10:12 Dose: 100 mg Furosemide (Lasix Injection -) 20 mg IVPUSH STUDENT DEVELOPMENT COORDINATOR [facility] Stop: 01/12/19 13:00 Pantoprazole Sodium 80 mg/ (Sodium Chloride) 100 mls @ 10 mls/hr IVPB Q10H [facility] Last Admin: 01/12/19 07:45 Dose: 10 mls/hr Ceftriaxone Sodium 1 gm/ (Dextrose) 50 mls @ 100 mls/hr IVPB DAILY [facility]; Protocol Last Admin: 01/12/19 10:12 Dose: 100 mls/hr Doxycycline Hyclate 100 mg/ (Dextrose) 100 mls @ 100 mls/hr IVPB BID [facility] Last Admin: 01/12/19 10:15 Dose: 100 mls/hr Levothyroxine Sodium (Synthroid -) 75 mcg PO DAILY@0700 [facility] Last Admin: 01/12/19 06:18 Dose: 75 mcg Methylprednisolone Sodium Succinate (Solu-Medrol -) 40 mg IVPUSH DAILY [facility] Last Admin: 01/12/19 10:12 Dose: 40 mg - Objective Vital Signs: Vital Signs Temperature 98.2 F 01/12/19 05:30 Pulse Rate 95 H 01/12/19 05:30 Respiratory Rate 21 H 01/12/19 05:30 Blood Pressure 138/62 01/12/19 05:30 O2 Sat by Pulse Oximetry (%) 96 05/14/19 03:00 Constitutional: Yes: Well Nourished, Calm Eyes: Yes: WNL HENT: Yes: WNL Neck: Yes: WNL Cardiovascular: Yes: Pulse Irregular, S1, S2 Respiratory: Yes: Rhonchi, Wheezes (scattered bilateral rhonchi and wheezes) Gastrointestinal: Yes: Normal Bowel Sounds, Soft Extremities: Yes: WNL Edema: No Labs: CBC, BMP 01/12/19 05:30 01/12/19 05:30 INR, PTT INR 0.97 (0.83-1.09) 01/10/19 13:02 Assessment/Plan Problem List - Problems (1) Anemia Code(s): D64.9 - ANEMIA, UNSPECIFIED Qualifiers: Anemia type: iron deficiency Iron deficiency anemia type: chronic blood loss Qualified Code(s): D50.0 - Iron deficiency anemia secondary to blood loss (chronic) (2) Pneumonia Code(s): J18.9 - PNEUMONIA, UNSPECIFIED ORGANISM (3) A-fib Code(s): I48.91 - UNSPECIFIED ATRIAL FIBRILLATION Qualifiers: Atrial fibrillation type: paroxysmal Qualified Code(s): I48.0 - Paroxysmal atrial fibrillation (4) Allergy to multiple antibiotics Code(s): Z88.1 - ALLERGY STATUS TO OTHER ANTIBIOTIC AGENTS STATUS (5) Asthma Code(s): J45.909 - UNSPECIFIED ASTHMA, UNCOMPLICATED (6) Breast mass, right Code(s): N63.10 - UNSPECIFIED LUMP IN THE RIGHT BREAST, UNSPECIFIED QUADRANT (7) CHF (congestive heart failure) Code(s): I50.9 - HEART FAILURE, UNSPECIFIED Qualifiers: Heart failure type: diastolic Heart failure chronicity: acute on chronic Qualified Code(s): I50.33 - Acute on chronic diastolic (congestive) heart failure (8) CKD (chronic kidney disease) Code(s): N18.9 - CHRONIC KIDNEY DISEASE, UNSPECIFIED Qualifiers: (9) Cough Code(s): R05 - COUGH (10) Diastolic dysfunction Code(s): I51.9 - HEART DISEASE, UNSPECIFIED (11) Dyspnea Code(s): R06.00 - DYSPNEA, UNSPECIFIED Qualifiers: Dyspnea type: shortness of breath Qualified Code(s): R06.02 - Shortness of breath; R06.00 - Dyspnea, unspecified; R06.01 - Orthopnea (12) Gout Code(s): M10.9 - GOUT, UNSPECIFIED (13) H/O malignant neoplasm of breast Code(s): Z85.3 - PERSONAL HISTORY OF MALIGNANT NEOPLASM OF BREAST (14) HTN (hypertension) Code(s): I10 - ESSENTIAL (PRIMARY) HYPERTENSION Qualifiers: Hypertension type: essential hypertension Qualified Code(s): I10 - Essential (primary) hypertension (15) Pleural effusion Code(s): J90 - PLEURAL EFFUSION, NOT ELSEWHERE CLASSIFIED Assessment/Plan Rocephin / Doxy O2 as needed to maintain saturation BD TX PRN Medrol F/U chest ct 4- 6 weeks after discharge to confirm resolution of infiltrates normal transfusion threshold DR GAINES
--- NOTE | 2019-01-12 11:47 | PN ---
Progress Note, Physician Chief Complaint: Events noted Not in distress History of Present Illness: Patient was seen and examined. Awake and alert. Chart was reviewed Denies chest pain or palpitations O2 ventimask - Current Medication List Current Medications: Active Medications Acetaminophen (Tylenol -) 650 mg PO Q6H PRN PRN Reason: PAIN LEVEL 1-5 Albuterol Sulfate (Ventolin 0.083% Nebulizer Soln -) 1 amp NEB Q4H PRN PRN Reason: SHORT OF BREATH/WHEEZING Albuterol/Ipratropium (Duoneb -) 1 amp NEB RQID [facility] Last Admin: 01/12/19 11:31 Dose: 1 amp Bacitracin (Bacitracin -) 1 applic TP DAILY [facility] Last Admin: 01/12/19 10:13 Dose: 1 applic Budesonide/Formoterol Fumarate (Symbicort 160/4.5mcg -) 2 puff IH BID [facility] Last Admin: 01/12/19 10:13 Dose: 2 puff Docusate Sodium (Colace -) 100 mg PO BID [facility] Last Admin: 01/12/19 10:12 Dose: 100 mg Furosemide (Lasix Injection -) 20 mg IVPUSH CASH MANAGER [facility] Stop: 01/12/19 13:00 Pantoprazole Sodium 80 mg/ (Sodium Chloride) 100 mls @ 10 mls/hr IVPB Q10H [facility] Last Admin: 01/12/19 07:45 Dose: 10 mls/hr Ceftriaxone Sodium 1 gm/ (Dextrose) 50 mls @ 100 mls/hr IVPB DAILY [facility]; Protocol Last Admin: 01/12/19 10:12 Dose: 100 mls/hr Doxycycline Hyclate 100 mg/ (Dextrose) 100 mls @ 100 mls/hr IVPB BID [facility] Last Admin: 01/12/19 10:15 Dose: 100 mls/hr Levothyroxine Sodium (Synthroid -) 75 mcg PO DAILY@0700 [facility] Last Admin: 01/12/19 06:18 Dose: 75 mcg Methylprednisolone Sodium Succinate (Solu-Medrol -) 40 mg IVPUSH DAILY [facility] Last Admin: 01/12/19 10:12 Dose: 40 mg - Objective Vital Signs: Vital Signs Temperature 98.2 F 01/12/19 05:30 Pulse Rate 95 H 01/12/19 05:30 Respiratory Rate 21 H 01/12/19 05:30 Blood Pressure 138/62 01/12/19 05:30 O2 Sat by Pulse Oximetry (%) 96 01/12/19 03:00 Eyes: Yes: PERRL HENT: Yes: Atraumatic Neck: Yes: Supple Cardiovascular: Yes: Regular Rate and Rhythm, Murmur (Soft SM), S1, S2 Respiratory: Yes: Diminished Gastrointestinal: Yes: Normal Bowel Sounds, Soft. No: Tenderness Edema: No Additional Findings/Remarks: - Review of Systems Constitutional: denies: Chills, Fever Cardiovascular: denies: Chest Pain. denies: Palpitations, (+) Shortness of Breath Respiratory: denies: Cough, Hemoptysis, Orthopnea, PND, (+) SOB, SOB on Exertion Gastrointestinal: denies: Diarrhea, Nausea. denies: Abdominal Pain, Constipation, Melena, Rectal Bleeding, Vomiting Genitourinary: denies: Dysuria, Hematuria Musculoskeletal: denies: Back Pain, Joint Pain Neurological: denies: Dizziness, Headache, Seizure, Syncope Labs: CBC, BMP 01/12/19 05:30 01/12/19 05:30 INR, PTT INR 0.97 (0.83-1.09) 01/10/19 13:02 Problem List - Problems (1) Anemia Code(s): D64.9 - ANEMIA, UNSPECIFIED Qualifiers: Anemia type: iron deficiency Iron deficiency anemia type: chronic blood loss Qualified Code(s): D50.0 - Iron deficiency anemia secondary to blood loss (chronic) (2) A-fib Code(s): I48.91 - UNSPECIFIED ATRIAL FIBRILLATION Qualifiers: Atrial fibrillation type: paroxysmal Qualified Code(s): I48.0 - Paroxysmal atrial fibrillation (3) Acute exacerbation of chronic obstructive airways disease Code(s): J44.1 - CHRONIC OBSTRUCTIVE PULMONARY DISEASE W (ACUTE) EXACERBATION (4) CHF (congestive heart failure) Code(s): I50.9 - HEART FAILURE, UNSPECIFIED Qualifiers: Heart failure type: diastolic Heart failure chronicity: acute on chronic Qualified Code(s): I50.33 - Acute on chronic diastolic (congestive) heart failure (5) CKD (chronic kidney disease) Code(s): N18.9 - CHRONIC KIDNEY DISEASE, UNSPECIFIED Qualifiers: (6) Diastolic dysfunction Code(s): I51.9 - HEART DISEASE, UNSPECIFIED (7) H/O malignant neoplasm of breast Code(s): Z85.3 - PERSONAL HISTORY OF MALIGNANT NEOPLASM OF BREAST (8) HTN (hypertension) Code(s): I10 - ESSENTIAL (PRIMARY) HYPERTENSION Qualifiers: Hypertension type: essential hypertension Qualified Code(s): I10 - Essential (primary) hypertension Assessment/Plan 1. Dyspnea referable to chronic blood loss anemia 2. Acute on chronic diastolic heart failure post PRBC transfusion 3. COPD 4. CAD with demand ischemia 5. Paroxysmal AF 6. hypothyroidism 7. CKD 8. History of breast CA 9. Prolonqed QTc PLAN: 1. Monitor CBC. Transfuse PRBC as needed. Currently Eliquis held and to decide whether to restart it pending achievement of homeostasis 2. IV diuresis with monitoring renal function and electrolytes. Trend troponins 3. Bronchodilators and supplemental O2 as needed 4. Resume Amlodipine 10 qd when tolerated 5. GI and Hematology input noted. Continue PPI Further plans are to follow Yoel Easton MD
--- NOTE | 2019-01-12 13:06 | PN ---
Progress Note, Physician History of Present Illness: Pt seen and examined at bedside. She is awake and alert. She feels that her breathing is improved. - Current Medication List Current Medications: Active Medications Acetaminophen (Tylenol -) 650 mg PO Q6H PRN PRN Reason: PAIN LEVEL 1-5 Albuterol Sulfate (Ventolin 0.083% Nebulizer Soln -) 1 amp NEB Q4H PRN PRN Reason: SHORT OF BREATH/WHEEZING Albuterol/Ipratropium (Duoneb -) 1 amp NEB RQID [facility] Last Admin: 01/12/19 11:31 Dose: 1 amp Bacitracin (Bacitracin -) 1 applic TP DAILY [facility] Last Admin: 01/12/19 10:13 Dose: 1 applic Budesonide/Formoterol Fumarate (Symbicort 160/4.5mcg -) 2 puff IH BID [facility] Last Admin: 01/12/19 10:13 Dose: 2 puff Docusate Sodium (Colace -) 100 mg PO BID [facility] Last Admin: 01/12/19 10:12 Dose: 100 mg Pantoprazole Sodium 80 mg/ (Sodium Chloride) 100 mls @ 10 mls/hr IVPB Q10H [facility] Last Admin: 01/12/19 07:45 Dose: 10 mls/hr Ceftriaxone Sodium 1 gm/ (Dextrose) 50 mls @ 100 mls/hr IVPB DAILY [facility]; Protocol Last Admin: 01/12/19 10:12 Dose: 100 mls/hr Doxycycline Hyclate 100 mg/ (Dextrose) 100 mls @ 100 mls/hr IVPB BID [facility] Last Admin: 01/12/19 10:15 Dose: 100 mls/hr Levothyroxine Sodium (Synthroid -) 75 mcg PO DAILY@0700 [facility] Last Admin: 01/12/19 06:18 Dose: 75 mcg Methylprednisolone Sodium Succinate (Solu-Medrol -) 40 mg IVPUSH DAILY [facility] Last Admin: 01/12/19 10:12 Dose: 40 mg - Objective Vital Signs: Vital Signs Temperature 98.2 F 01/12/19 05:30 Pulse Rate 95 H 01/12/19 05:30 Respiratory Rate 21 H 01/12/19 05:30 Blood Pressure 138/62 01/12/19 05:30 O2 Sat by Pulse Oximetry (%) 97 01/12/19 08:40 Constitutional: Yes: Calm Eyes: Yes: Conjunctiva Clear HENT: Yes: Atraumatic Neck: Yes: Supple Cardiovascular: Yes: S1, S2 Respiratory: Yes: On Nasal O2 Gastrointestinal: Yes: Normal Bowel Sounds, Soft Genitourinary: Yes: [place] Present Musculoskeletal: Yes: WNL Edema: Yes Edema: LLE: Trace, RLE: Trace Neurological: Yes: Oriented Psychiatric: Yes: Oriented Labs: CBC, BMP 01/12/19 05:30 01/12/19 05:30 INR, PTT INR 0.97 (0.83-1.09) 01/10/19 13:02 Problem List - Problems (1) Anemia Code(s): D64.9 - ANEMIA, UNSPECIFIED Qualifiers: Anemia type: iron deficiency Iron deficiency anemia type: chronic blood loss Qualified Code(s): D50.0 - Iron deficiency anemia secondary to blood loss (chronic) (2) CKD (chronic kidney disease) Code(s): N18.9 - CHRONIC KIDNEY DISEASE, UNSPECIFIED Qualifiers: Assessment/Plan Current Medications Generic Name Dose Route Start Last Admin Trade Name Freq PRN Reason Stop Dose Admin Acetaminophen 650 mg 01/10/19 16:07 Tylenol - PO Q6H PRN PAIN LEVEL 1-5 Albuterol Sulfate 1 amp 01/10/19 16:08 Ventolin 0.083% Nebulizer Soln - NEB Q4H PRN SHORT OF BREATH/WHEEZING Albuterol/Ipratropium 1 amp 01/10/19 20:00 01/12/19 11:31 Duoneb - NEB 1 amp RQID [facility] Administration Bacitracin 1 applic 01/11/19 10:00 01/12/19 10:13 Bacitracin - TP 1 applic DAILY [facility] Administration Budesonide/Formoterol Fumarate 2 puff 01/10/19 22:00 01/12/19 10:13 Symbicort 160/4.5mcg - IH 2 puff BID [facility] Administration Docusate Sodium 100 mg 01/10/19 22:00 01/12/19 10:12 Colace - PO 100 mg BID [facility] Administration Pantoprazole Sodium 80 mg/ 100 mls @ 10 mls/hr 01/10/19 15:45 01/12/19 07:45 Sodium Chloride IVPB 10 mls/hr Q10H [facility] Administration 8 MG/HR Ceftriaxone Sodium 1 gm/ 50 mls @ 100 mls/hr 01/11/19 10:00 01/12/19 10:12 Dextrose IVPB 100 mls/hr DAILY [facility] Administration Protocol Doxycycline Hyclate 100 mg/ 100 mls @ 100 mls/hr 01/11/19 10:00 01/12/19 10: 15 Dextrose IVPB 100 mls/hr BID [facility] Administration Levothyroxine Sodium 75 mcg 01/11/19 07:00 01/12/19 06:18 Synthroid - PO 75 mcg DAILY@0700 [facility] Administration Methylprednisolone Sodium Succinate 40 mg 01/11/19 14:00 01/12/19 10:12 Solu-Medrol - IVPUSH 40 mg DAILY [facility] Administration Laboratory Tests 01/12/19 01/12/19 05:30 05:30 p-ANCA Pending Atypical p-ANCA Pending Myeloperoxidase Ab Pending Double Strand DNA Ab Pending Glomerular Base Memb Ab Pending Free [place] LC, Quant Pending Free Lambda LC, Quant Pending Free [place]/Lambda Ratio Pending Impression 1. CKD 2. hypothyroidism 3. breast cancer 4. pleural effusion 5. gout 6. asthma 7. liver disease 8. copd 9. asthma 10. a-fib 11. PATY 12. anemia Plan - monitor renal function - hg is improving - check ua and lytes - anemia may have contributed to paty - follow serologic workup - avoid nsaids
--- NOTE | 2019-01-12 14:04 | PN ---
Physical Exam: SUBJECTIVE: Patient seen and examined resting in bed, nad. no acute events, afebrile hemodynamically stable. denies h/ a, change in vision, difficulty swallowing, bleeding. now recalls an episode of melena in the past OBJECTIVE: Vital Signs Period Temp Pulse Resp BP Sys/[place]rev[place] Pulse Ox Last 24 Hr 97.9 F-98.2 F 90-96 20-21 130-138/62-69 96-98 GENERAL: Awake, alert, slightly confused, somnolent, in no acute distress. HEAD: Normal with no signs of trauma. EYES: extraocular movements intact, sclera anicteric, conjunctiva clear. No lid lag. EARS, NOSE, THROAT: Moist mucous membranes. NECK: supple without lymphadenopathy LUNGS: diffuse ronchi and wheezing HEART: Regular rate and rhythm, normal S1 and S2 ABDOMEN: Soft, nontender, not distended, normoactive bowel sounds, no guarding, no rebound, no masses. MUSCULOSKELETAL: No CVA tenderness. UPPER EXTREMITIES: 2+ pulses, warm, well-perfused. No peripheral edema. LOWER EXTREMITIES: warm, well-perfused. No calf tenderness. No peripheral edema. NEUROLOGICAL: Cranial nerves II-XII grossly intact. Normal speech. PSYCHIATRIC: Cooperative. Good eye contact. Appropriate mood and affect. SKIN: Warm, dry Laboratory Results - last 24 hr 01/10/19 01/11/19 01/11/19 13:02 18:20 18:20 WBC RBC Hgb Hct MCV MCH MCHC RDW Plt Count MPV Retic Count Sodium Potassium Chloride Carbon Dioxide Anion Gap BUN Creatinine Est GFR (CKD-EPI)AfAm Est GFR (CKD-EPI)NonAf Random Glucose Calcium Ferritin LD Total Troponin I Urine Color Yellow Urine Appearance Clear Urine pH 6.0 Ur Specific [place] 1.008 L Urine Protein Negative Urine Glucose (UA) Negative Urine Ketones Negative Urine Blood 1+ H Urine Nitrite Negative Urine Bilirubin Negative Urine Urobilinogen 0.2 Ur Leukocyte Esterase Trace Urine WBC (Auto) 2 Urine RBC (Auto) 3 Urine Casts (Auto) 1 U Epithel Cells (Auto) 0.3 Urine Bacteria (Auto) 1.5 Ur Random Creatinine U Random Total Protein Ur Random Sodium 99 Ur Random Potassium 17.3 L Ur Random Chloride 111 Urine Creatinine Protein/Creatinin Ratio Blood Type B POSITIVE Antibody Screen Negative Crossmatch See Detail 01/11/19 01/11/19 01/11/19 18:20 18:20 18:30 WBC 11.8 H RBC 3.02 L Hgb 8.1 L Hct 25.5 L D MCV 84.4 MCH 26.8 MCHC 31.7 L RDW 16.0 H Plt Count 291 MPV 10.1 Retic Count Sodium Potassium Chloride Carbon Dioxide Anion Gap BUN Creatinine Est GFR (CKD-EPI)AfAm Est GFR (CKD-EPI)NonAf Random Glucose Calcium Ferritin LD Total Troponin I Urine Color Urine Appearance Urine pH Ur Specific [place] Urine Protein Urine Glucose (UA) Urine Ketones Urine Blood Urine Nitrite Urine Bilirubin Urine Urobilinogen Ur Leukocyte Esterase Urine WBC (Auto) Urine RBC (Auto) Urine Casts (Auto) U Epithel Cells (Auto) Urine Bacteria (Auto) Ur Random Creatinine 17.6 L U Random Total Protein 12.9 H Ur Random Sodium Ur Random Potassium Ur Random Chloride Urine Creatinine 18.0 L Protein/Creatinin Ratio 0.710 Blood Type Antibody Screen Crossmatch 01/12/19 01/12/19 01/12/19 05:30 05:30 05:30 WBC 8.5 RBC 2.68 L Hgb 7.5 L Hct 22.1 L MCV 82.8 MCH 27.9 MCHC 33.7 RDW 16.6 H Plt Count 263 MPV 10.1 Retic Count 2.84 H Sodium 138 Potassium 4.1 Chloride 102 Carbon Dioxide 29 Anion Gap 7 L BUN 64 H Creatinine 3.1 H Est GFR (CKD-EPI)AfAm 16.14 Est GFR (CKD-EPI)NonAf 13.92 Random Glucose 79 Calcium 8.9 Ferritin LD Total 192 Troponin I 0.59 H Urine Color Urine Appearance Urine pH Ur Specific [place] Urine Protein Urine Glucose (UA) Urine Ketones Urine Blood Urine Nitrite Urine Bilirubin Urine Urobilinogen Ur Leukocyte Esterase Urine WBC (Auto) Urine RBC (Auto) Urine Casts (Auto) U Epithel Cells (Auto) Urine Bacteria (Auto) Ur Random Creatinine U Random Total Protein Ur Random Sodium Ur Random Potassium Ur Random Chloride Urine Creatinine Protein/Creatinin Ratio Blood Type Antibody Screen Crossmatch 01/12/19 05:30 WBC RBC Hgb Hct MCV MCH MCHC RDW Plt Count MPV Retic Count Sodium Potassium Chloride Carbon Dioxide Anion Gap BUN Creatinine Est GFR (CKD-EPI)AfAm Est GFR (CKD-EPI)NonAf Random Glucose Calcium Ferritin 35.5 LD Total Troponin I Urine Color Urine Appearance Urine pH Ur Specific [place] Urine Protein Urine Glucose (UA) Urine Ketones Urine Blood Urine Nitrite Urine Bilirubin Urine Urobilinogen Ur Leukocyte Esterase Urine WBC (Auto) Urine RBC (Auto) Urine Casts (Auto) U Epithel Cells (Auto) Urine Bacteria (Auto) Ur Random Creatinine U Random Total Protein Ur Random Sodium Ur Random Potassium Ur Random Chloride Urine Creatinine Protein/Creatinin Ratio Blood Type Antibody Screen Crossmatch Active Medications Generic Name Dose Route Start Last Admin Trade Name Freq PRN Reason Stop Dose Admin Acetaminophen 650 mg 01/10/19 16:07 Tylenol - PO Q6H PRN PAIN LEVEL 1-5 Albuterol Sulfate 1 amp 01/10/19 16:08 Ventolin 0.083% Nebulizer Soln - NEB Q4H PRN SHORT OF BREATH/WHEEZING Albuterol/Ipratropium 1 amp 01/10/19 20:00 01/12/19 11:31 Duoneb - NEB 1 amp RQID [facility] Administration Bacitracin 1 applic 01/11/19 10:00 01/12/19 10:13 Bacitracin - TP 1 applic DAILY [facility] Administration Budesonide/Formoterol Fumarate 2 puff 01/10/19 22:00 01/12/19 10:13 Symbicort 160/4.5mcg - IH 2 puff BID [facility] Administration Docusate Sodium 100 mg 01/10/19 22:00 01/12/19 10:12 Colace - PO 100 mg BID [facility] Administration Pantoprazole Sodium 80 mg/ 100 mls @ 10 mls/hr 01/10/19 15:45 01/12/19 07:45 Sodium Chloride IVPB 10 mls/hr Q10H [facility] Administration 8 MG/HR Ceftriaxone Sodium 1 gm/ 50 mls @ 100 mls/hr 01/11/19 10:00 01/12/19 10:12 Dextrose IVPB 100 mls/hr DAILY [facility] Administration Protocol Doxycycline Hyclate 100 mg/ 100 mls @ 100 mls/hr 01/11/19 10:00 01/12/19 10: 15 Dextrose IVPB 100 mls/hr BID [facility] Administration Levothyroxine Sodium 75 mcg 01/11/19 07:00 01/12/19 06:18 Synthroid - PO 75 mcg DAILY@0700 [facility] Administration Methylprednisolone Sodium Succinate 40 mg 01/11/19 14:00 01/12/19 10:12 Solu-Medrol - IVPUSH 40 mg DAILY [facility] Administration ASSESSMENT/PLAN: This is a 78 yo f with PMH of invasive ductal R breast ca (dx 10 years ago, recently worked up again, when reported declined chemoradiation), COPD on 2 L home oxygen, LLL PNA with pleural effusion s/p thoracocentesis transudative (2018),HFPEF, CAD (not reported PCI or intervention), HTN, HLD, CVA with no residual deficits hypothyroidism, gout, who presented with worsening sob and cough with blood tinged sputum x 4 d. invasive ductal R breast ca severe symtomatic anemia acute on chronic hypoxic respirtory failure copd on home o2 LLL effusion CAD HFPEF HTN HLD CHF -apparently recently refused treatment but unable to provide any useful history. will discuss again when patients mental status/memory improves -breast biopsy done november 17 revealed IDC moderately differentiated ER -100% Her 2 negative, SD -100%, Ki67<10% -should have been on anastrozole for about a month and a half; she does not remember which medication she took; started anastrozole yesterday -continue transfusion prbcs, rend h/h -f/u anemia workup -gi on case Visit type - Emergency Visit Emergency Visit: Yes ED Registration Date: 01/10/19 Care time: The patient presented to the Emergency Department on the above date and was hospitalized for further evaluation of their emergent condition. - New Patient This patient is new to me today: No - Critical Care Critical Care patient: No - Discharge Referral Referred to [facility] No
--- NOTE | 2019-01-12 14:45 | PN ---
Teaching Attending Note Name of Resident: Sukhdeep Ely ATTENDING PHYSICIAN STATEMENT I saw and evaluated the patient. I reviewed the resident's note and discussed the case with the resident. I agree with the resident's findings and plan as documented with exceptions below SUBJECTIVE: Patient seen and examined. Breathing improved, denies dark or bloody stools or abdominal pain or new complaints. OBJECTIVE: Vital Signs Period Temp Pulse Resp BP Sys/Trevino Pulse Ox Last 24 Hr 97.9 F-98.3 F 90-104 20-21 130-138/62-69 96-98 Intake & Output 01/09/19 01/10/19 01/11/19 01/12/19 23:59 23:59 23:59 23:59 Intake Total 350 620 400 Output Total 1900 700 Balance 350 -1280 -300 Weight 151 lb 3.2 oz 152 lb 149 lb 8 oz General: sitting in bed in no acute distress, improved tachypnea Chest: scattered wheezing/rhonchi bilaterally, decreased air entry all over Abdomen:Soft, NT throughout, ND Extremities: trace pedal edema, right braun wound healing well Home Medications Medication Instructions Recorded Allopurinol [Zyloprim -] 100 mg PO DAILY 08/30/18 Budesonide/Formeterol Fumarate 2 inh PO BID 08/30/18 [SYMBICORT 160/4.5mcg -] Calcium Carbonate/Vitamin D3 2 each PO DAILY 08/30/18 [Calcium 600+D Softgel] Docusate Sodium [Colace] 100 mg PO BID 08/30/18 Levothyroxine [Synthroid -] 75 mcg PO DAILY 08/30/18 Apixaban [Eliquis -] 5 mg PO BID #20 tablet 09/30/18 Acetaminophen [Tylenol] 650 mg PO Q6H PRN 01/10/19 Albuterol Sulfate Inhaler - 1 inh PO Q4H PRN 01/10/19 [Ventolin Hfa Inhaler -] Albuterol Sulfate [Proair Hfa] 8.5 gm IH TID PRN 01/10/19 Amlodipine Besylate [Norvasc -] 10 mg PO DAILY 01/10/19 Bacitracin - [Bacitracin Topical 1 applic TP DAILY 01/10/19 Ointment -] Ferrous Sulfate [Iron] 143 mg PO DAILY 01/10/19 Furosemide 20 mg PO DAILY 01/10/19 Sulfamethoxazole/Trimethoprim 1 tab PO BID 01/10/19 [Bactrim Ds -] Umeclidinium [place] [Incruse 62.5 mcg IH DAILY 01/10/19 Ellipta] Active Medications Acetaminophen (Tylenol -) 650 mg PO Q6H PRN PRN Reason: PAIN LEVEL 1-5 Albuterol Sulfate (Ventolin 0.083% Nebulizer Soln -) 1 amp NEB Q4H PRN PRN Reason: SHORT OF BREATH/WHEEZING Albuterol/Ipratropium (Duoneb -) 1 amp NEB RQID [facility] Last Admin: 01/12/19 11:31 Dose: 1 amp Bacitracin (Bacitracin -) 1 applic TP DAILY [facility] Last Admin: 01/12/19 10:13 Dose: 1 applic Budesonide/Formoterol Fumarate (Symbicort 160/4.5mcg -) 2 puff IH BID [facility] Last Admin: 01/12/19 10:13 Dose: 2 puff Docusate Sodium (Colace -) 100 mg PO BID [facility] Last Admin: 01/12/19 10:12 Dose: 100 mg Pantoprazole Sodium 80 mg/ (Sodium Chloride) 100 mls @ 10 mls/hr IVPB Q10H [facility] Last Admin: 01/12/19 07:45 Dose: 10 mls/hr Ceftriaxone Sodium 1 gm/ (Dextrose) 50 mls @ 100 mls/hr IVPB DAILY [facility]; Protocol Last Admin: 01/12/19 10:12 Dose: 100 mls/hr Doxycycline Hyclate 100 mg/ (Dextrose) 100 mls @ 100 mls/hr IVPB BID [facility] Last Admin: 01/12/19 10:15 Dose: 100 mls/hr Levothyroxine Sodium (Synthroid -) 75 mcg PO DAILY@0700 [facility] Last Admin: 01/12/19 06:18 Dose: 75 mcg Methylprednisolone Sodium Succinate (Solu-Medrol -) 40 mg IVPUSH DAILY [facility] Last Admin: 01/12/19 10:12 Dose: 40 mg Laboratory Results - last 24 hr 01/10/19 01/11/19 01/11/19 13:02 18:20 18:20 WBC RBC Hgb Hct MCV MCH MCHC RDW Plt Count MPV Retic Count Sodium Potassium Chloride Carbon Dioxide Anion Gap BUN Creatinine Est GFR (CKD-EPI)AfAm Est GFR (CKD-EPI)NonAf Random Glucose Calcium Ferritin LD Total Troponin I Urine Color Yellow Urine Appearance Clear Urine pH 6.0 Ur Specific [place] 1.008 L Urine Protein Negative Urine Glucose (UA) Negative Urine Ketones Negative Urine Blood 1+ H Urine Nitrite Negative Urine Bilirubin Negative Urine Urobilinogen 0.2 Ur Leukocyte Esterase Trace Urine WBC (Auto) 2 Urine RBC (Auto) 3 Urine Casts (Auto) 1 U Epithel Cells (Auto) 0.3 Urine Bacteria (Auto) 1.5 Ur Random Creatinine U Random Total Protein Ur Random Sodium 99 Ur Random Potassium 17.3 L Ur Random Chloride 111 Urine Creatinine Protein/Creatinin Ratio Blood Type B POSITIVE Antibody Screen Negative Crossmatch See Detail 01/11/19 01/11/19 01/11/19 18:20 18:20 18:30 WBC 11.8 H RBC 3.02 L Hgb 8.1 L Hct 25.5 L D MCV 84.4 MCH 26.8 MCHC 31.7 L RDW 16.0 H Plt Count 291 MPV 10.1 Retic Count Sodium Potassium Chloride Carbon Dioxide Anion Gap BUN Creatinine Est GFR (CKD-EPI)AfAm Est GFR (CKD-EPI)NonAf Random Glucose Calcium Ferritin LD Total Troponin I Urine Color Urine Appearance Urine pH Ur Specific [place] Urine Protein Urine Glucose (UA) Urine Ketones Urine Blood Urine Nitrite Urine Bilirubin Urine Urobilinogen Ur Leukocyte Esterase Urine WBC (Auto) Urine RBC (Auto) Urine Casts (Auto) U Epithel Cells (Auto) Urine Bacteria (Auto) Ur Random Creatinine 17.6 L U Random Total Protein 12.9 H Ur Random Sodium Ur Random Potassium Ur Random Chloride Urine Creatinine 18.0 L Protein/Creatinin Ratio 0.710 Blood Type Antibody Screen Crossmatch 01/12/19 01/12/19 01/12/19 05:30 05:30 05:30 WBC 8.5 RBC 2.68 L Hgb 7.5 L Hct 22.1 L MCV 82.8 MCH 27.9 MCHC 33.7 RDW 16.6 H Plt Count 263 MPV 10.1 Retic Count 2.84 H Sodium 138 Potassium 4.1 Chloride 102 Carbon Dioxide 29 Anion Gap 7 L BUN 64 H Creatinine 3.1 H Est GFR (CKD-EPI)AfAm 16.14 Est GFR (CKD-EPI)NonAf 13.92 Random Glucose 79 Calcium 8.9 Ferritin LD Total 192 Troponin I 0.59 H Urine Color Urine Appearance Urine pH Ur Specific [place] Urine Protein Urine Glucose (UA) Urine Ketones Urine Blood Urine Nitrite Urine Bilirubin Urine Urobilinogen Ur Leukocyte Esterase Urine WBC (Auto) Urine RBC (Auto) Urine Casts (Auto) U Epithel Cells (Auto) Urine Bacteria (Auto) Ur Random Creatinine U Random Total Protein Ur Random Sodium Ur Random Potassium Ur Random Chloride Urine Creatinine Protein/Creatinin Ratio Blood Type Antibody Screen Crossmatch 01/12/19 05:30 WBC RBC Hgb Hct MCV MCH MCHC RDW Plt Count MPV Retic Count Sodium Potassium Chloride Carbon Dioxide Anion Gap BUN Creatinine Est GFR (CKD-EPI)AfAm Est GFR (CKD-EPI)NonAf Random Glucose Calcium Ferritin 35.5 LD Total Troponin I Urine Color Urine Appearance Urine pH Ur Specific [place] Urine Protein Urine Glucose (UA) Urine Ketones Urine Blood Urine Nitrite Urine Bilirubin Urine Urobilinogen Ur Leukocyte Esterase Urine WBC (Auto) Urine RBC (Auto) Urine Casts (Auto) U Epithel Cells (Auto) Urine Bacteria (Auto) Ur Random Creatinine U Random Total Protein Ur Random Sodium Ur Random Potassium Ur Random Chloride Urine Creatinine Protein/Creatinin Ratio Blood Type Antibody Screen Crossmatch Microbiology 01/10/19 15:01 Blood - Peripheral Venous Blood Culture - Preliminary NO GROWTH OBTAINED AFTER 24 HOURS, INCUBATION TO CONTINUE FOR 4 DAYS. 01/10/19 14:00 Blood - Peripheral Venous Blood Culture - Preliminary NO GROWTH OBTAINED AFTER 24 HOURS, INCUBATION TO CONTINUE FOR 4 DAYS. 01/11/19 11:10 Urine For Antigen Detection Legionella Antigen - Final 01/11/19 11:10 Urine For Antigen Detection Streptococcus pneumoniae Antigen (M - Final ASSESSMENT AND PLAN: 78 yof with PMHx of invasive ductal R breast ca (10 years, recently worked up again, when reported declined chemoradiation), COPD on 2 L home oxygen, LLL PNA with pleural effusion s/p thoracocentesis transudative (09/2018), Chronic diastolic dysfunction, CAD (not reported PCI or intervention), HTN, HLD, CVA with no residual deficits hypothyroidism, gout admitted with dyspnea, severe anemia, pos FOBT and PATY on CKD, course complicated by respiratory distress needing Bipap. -Acute on Chronic Hypoxic respiratory failure -Severe anemia, r/o GIB, ?PUD/gastritis from steroid use vs AVM, vs lower GI source/Mass/AVM compounded by AC use -Lingular atelectasis, r/o PNA -Acute on chronic diastolic Heart failure exacerbation -Acute COPD exacerbation -Elevated troponin, suspect demand type II NSTEMI, from above -PATY on CKD stage III, from suspected GI bleed, bactrim/diuretic use +/- hypovolumia -Afib with RVR, likely from above, on eliquis -Invasive ductal Right breast Ca reported refused treatment recently -LLE wound from trauma from breathing machine. -COPD on 2 L Home oxygen -HTN -HLD -h/o LLL PNA with pleural effusion s/p thoracocentesis (transudative) in 09/2018 -Gout -Hypothyroidism Plan: Respiratory symptoms improved. H/H noted, transfuse 1 more unit PRBC with lasix 20 mg IV. No gross evidence of bleed. GI input noted. Protonix drip. Further intervention based on clinical course, improvement in respiratory status and patient wishes. Hold eliquis. Respiratory status better, taper oxygen as tolerated. Bipap prn. Solumedrol 40 mg IV daily with caution, standing/prn nebs. Pulmonary input noted. s/p 3 days of emperic abx. D/c ceftriaxone. Doxycycline for 5-[address] Chest/A/P noted. Renal function overall unchanged. Monitor with diuresis. Renal/Bladder US noted. REnal input noted. Was on bactrim for LE wound prior to admission, d/mark for now. Continue levothyroxine DVTPPX SCDs, duplex LLE neg. Code status: Palliative care input noted, DNR/DNI. Dispo pending clinical improvement and goals of care. Plan discussed with patient and nursing, all questions answered.
--- NOTE | 2019-01-12 15:35 | PN ---
Physical Exam: SUBJECTIVE: Patient seen and examined at bedside. Feels better today. No BMs yet but has only started eating today and tolerating diet today. OBJECTIVE: Vital Signs Temperature 98.3 F 01/12/19 09:00 Pulse Rate 104 H 01/12/19 09:00 Respiratory Rate 21 H 01/12/19 09:00 Blood Pressure 135/68 01/12/19 09:00 O2 Sat by Pulse Oximetry (%) 96 01/12/19 09:00 GENERAL: The patient is awake, alert, and fully oriented, in no acute distress. Speaking in full sentences with ventimask on. HEAD: Normal with no signs of trauma. ENT: Ears normal, nares patent LUNGS: b/l wheezing HEART: Regular rate and rhythm, S1, S2 ABDOMEN: Soft, nontender, nondistended, normoactive bowel sounds. Large ventral hernia. EXTREMITIES: warm, well-perfused, no edema. NEUROLOGICAL: Cranial nerves II through XII grossly intact. Normal speech, gait not observed. PSYCH: Normal mood, normal affect. SKIN: Warm, dry Laboratory Results - last 24 hr 01/10/19 01/11/19 01/11/19 13:02 18:20 18:20 WBC RBC Hgb Hct MCV MCH MCHC RDW Plt Count MPV Retic Count Sodium Potassium Chloride Carbon Dioxide Anion Gap BUN Creatinine Est GFR (CKD-EPI)AfAm Est GFR (CKD-EPI)NonAf Random Glucose Calcium Ferritin LD Total Troponin I Urine Color Yellow Urine Appearance Clear Urine pH 6.0 Ur Specific [place] 1.008 L Urine Protein Negative Urine Glucose (UA) Negative Urine Ketones Negative Urine Blood 1+ H Urine Nitrite Negative Urine Bilirubin Negative Urine Urobilinogen 0.2 Ur Leukocyte Esterase Trace Urine WBC (Auto) 2 Urine RBC (Auto) 3 Urine Casts (Auto) 1 U Epithel Cells (Auto) 0.3 Urine Bacteria (Auto) 1.5 Ur Random Creatinine U Random Total Protein Ur Random Sodium 99 Ur Random Potassium 17.3 L Ur Random Chloride 111 Urine Creatinine Protein/Creatinin Ratio Blood Type B POSITIVE Antibody Screen Negative Crossmatch See Detail 01/11/19 01/11/19 01/11/19 18:20 18:20 18:30 WBC 11.8 H RBC 3.02 L Hgb 8.1 L Hct 25.5 L D MCV 84.4 MCH 26.8 MCHC 31.7 L RDW 16.0 H Plt Count 291 MPV 10.1 Retic Count Sodium Potassium Chloride Carbon Dioxide Anion Gap BUN Creatinine Est GFR (CKD-EPI)AfAm Est GFR (CKD-EPI)NonAf Random Glucose Calcium Ferritin LD Total Troponin I Urine Color Urine Appearance Urine pH Ur Specific [place] Urine Protein Urine Glucose (UA) Urine Ketones Urine Blood Urine Nitrite Urine Bilirubin Urine Urobilinogen Ur Leukocyte Esterase Urine WBC (Auto) Urine RBC (Auto) Urine Casts (Auto) U Epithel Cells (Auto) Urine Bacteria (Auto) Ur Random Creatinine 17.6 L U Random Total Protein 12.9 H Ur Random Sodium Ur Random Potassium Ur Random Chloride Urine Creatinine 18.0 L Protein/Creatinin Ratio 0.710 Blood Type Antibody Screen Crossmatch 01/12/19 01/12/19 01/12/19 05:30 05:30 05:30 WBC 8.5 RBC 2.68 L Hgb 7.5 L Hct 22.1 L MCV 82.8 MCH 27.9 MCHC 33.7 RDW 16.6 H Plt Count 263 MPV 10.1 Retic Count 2.84 H Sodium 138 Potassium 4.1 Chloride 102 Carbon Dioxide 29 Anion Gap 7 L BUN 64 H Creatinine 3.1 H Est GFR (CKD-EPI)AfAm 16.14 Est GFR (CKD-EPI)NonAf 13.92 Random Glucose 79 Calcium 8.9 Ferritin LD Total 192 Troponin I 0.59 H Urine Color Urine Appearance Urine pH Ur Specific [place] Urine Protein Urine Glucose (UA) Urine Ketones Urine Blood Urine Nitrite Urine Bilirubin Urine Urobilinogen Ur Leukocyte Esterase Urine WBC (Auto) Urine RBC (Auto) Urine Casts (Auto) U Epithel Cells (Auto) Urine Bacteria (Auto) Ur Random Creatinine U Random Total Protein Ur Random Sodium Ur Random Potassium Ur Random Chloride Urine Creatinine Protein/Creatinin Ratio Blood Type Antibody Screen Crossmatch 01/12/19 05:30 WBC RBC Hgb Hct MCV MCH MCHC RDW Plt Count MPV Retic Count Sodium Potassium Chloride Carbon Dioxide Anion Gap BUN Creatinine Est GFR (CKD-EPI)AfAm Est GFR (CKD-EPI)NonAf Random Glucose Calcium Ferritin 35.5 LD Total Troponin I Urine Color Urine Appearance Urine pH Ur Specific [place] Urine Protein Urine Glucose (UA) Urine Ketones Urine Blood Urine Nitrite Urine Bilirubin Urine Urobilinogen Ur Leukocyte Esterase Urine WBC (Auto) Urine RBC (Auto) Urine Casts (Auto) U Epithel Cells (Auto) Urine Bacteria (Auto) Ur Random Creatinine U Random Total Protein Ur Random Sodium Ur Random Potassium Ur Random Chloride Urine Creatinine Protein/Creatinin Ratio Blood Type Antibody Screen Crossmatch Active Medications Generic Name Dose Route Start Last Admin Trade Name Freq PRN Reason Stop Dose Admin Acetaminophen 650 mg 01/10/19 16:07 Tylenol - PO Q6H PRN PAIN LEVEL 1-5 Albuterol Sulfate 1 amp 01/10/19 16:08 Ventolin 0.083% Nebulizer Soln - NEB Q4H PRN SHORT OF BREATH/WHEEZING Albuterol/Ipratropium 1 amp 01/10/19 20:00 01/12/19 11:31 Duoneb - NEB 1 amp RQID KASSIDY Administration Bacitracin 1 applic 01/11/19 10:00 01/12/19 10:13 Bacitracin - TP 1 applic DAILY KASSIDY Administration Budesonide/Formoterol Fumarate 2 puff 01/10/19 22:00 01/12/19 10:13 Symbicort 160/4.5mcg - IH 2 puff BID KASSIDY Administration Docusate Sodium 100 mg 01/10/19 22:00 01/12/19 10:12 Colace - PO 100 mg BID KASSIDY Administration Pantoprazole Sodium 80 mg/ 100 mls @ 10 mls/hr 01/10/19 15:45 01/12/19 07:45 Sodium Chloride IVPB 10 mls/hr Q10H KASSIDY Administration 8 MG/HR Doxycycline Hyclate 100 mg/ 100 mls @ 100 mls/hr 01/11/19 10:00 01/12/19 10: 15 Dextrose IVPB 100 mls/hr BID KASSIDY Administration Levothyroxine Sodium 75 mcg 01/11/19 07:00 01/12/19 06:18 Synthroid - PO 75 mcg DAILY@0700 KASSIDY Administration Methylprednisolone Sodium Succinate 40 mg 01/11/19 14:00 01/12/19 10:12 Solu-Medrol - IVPUSH 40 mg DAILY KASSIDY Administration -ECHO 01/11/19 Interpretation Summary Technically limited study The left ventricle is normal in size. Left ventricular systolic function is normal. No regional wall motion abnormalities noted. Ejection Fraction = 55-60%. The right ventricular systolic function is normal. The left atrial size is normal. Right atrial size is normal. There is mild mitral annular calcification. There is mild to moderate mitral regurgitation. There is mild tricuspid regurgitation. There is mild aortic sclerosis. There is no pericardial effusion. ASSESSMENT/PLAN: 78 y/o F w/PMH of invasive ductal R breast ca (dx'd 10 years ago, recently declined chemo/RT), COPD (on 2L home O2), dCHF, CAD, HTN, HLD, CVA (w/no residual deficits), hypothyroidism, gout, recent LLL Pna with pleural effusion s /p thoracentesis (09/2018) admitted for SOB, anemia (requiring transfusion), FOBT +, and PATY on CKD. -SOB (acute on chronic hypoxic respiratory failure) -secondary to possible pna vs acute on chronic chf exacerbation superimposed with anemia and COPD exacerbation -Anemia -FOBT+, GI following, 2 units PRBC so far (will reassess after second unit to see if she needs further transfusions). -Hgb 7.5 today. Will give IV lasix 20mg once and then 1 unit PRBC transfuse to keep Hgb >8 -PPI drip -will need to have more stable respiratory status before EGD/c-scope -acute on chronic CHF exacerbation -Bipap prn, currently on VM -monitor i/os, daily weights -PNA -doxy for 5-7 days -ceftriaxone stopped -f/u BCx -COPD exacerbation -Pulm following -Duo-neb QID, alb nebs PRN, symbicort, bipap PRN, O2 supp to keep saturation above 90% (on home O2 at 2L) -solu-medrol 40 mg IVP qd -CT C/A/P: lingular consolidation/atelectasis, small b/l pleural effusions w/ bibasilar atelectasis, mod renal atrophy R>L, large ventral hernia anterior abdominal wall. -Hypothyroidism -c/w synthroid 75mcg qAM -PATY on CKD -Cr 3.1, continue to monitor -Nephrology following -avoid nephrotoxic agents -Hx of breast ca -Palliative consult as pt does not want treatment -Elevated trop -Likely demand, will monitor. No chest pain. -Afib -Hold AC with anemia -Echo noted, mostly unremarkable -HTN -restart norvasc 10mg qd if hypertensive -LLE wound -wound care. LLE duplex US negative for DVT -DVT ppx -SCDs -FEN -No fluids -Monitor electrolytes -Clear liquid diet -Dispo: Monitor on tele -Code Status: DNR/DNI Visit type - Emergency Visit Emergency Visit: Yes ED Registration Date: 01/10/19 Care time: The patient presented to the Emergency Department on the above date and was hospitalized for further evaluation of their emergent condition. - New Patient This patient is new to me today: No - Critical Care Critical Care patient: No
[2019-01-12 17:20] LABS: BASO % 0.4 % (0-2.0); HEMATOCRIT 27.9 % (32.4-45.2); LYMPH % 3.9 % (8-40); MCH 27.5 pg (25.7-33.7); MCHC 32.5 g/dl (32.0-36.0); MEAN CELL VOLUME 84.7 fl (80-96); MEAN PLT VOLUME 8.4 fl (7.5-11.1); MONO % 1.9 % (3.8-10.2); NEUT % 93.8 % (42.8-82.8); PLATELET COUNT 259 K/MM3 (134-434); RBC 3.29 M/mm3 (3.60-5.2); RDW 15.6 % (11.6-15.6); WHITE BLOOD COUNT 8.9 K/mm3 (4.0-10.0)
--- NOTE | 2019-01-12 20:03 | PN.GI ---
GI Progress Note Subjective: No overt bleeding Patient states that breathing is so-so - Objective Vital Signs: Vital Signs Temperature 97.5 F L 01/12/19 17:00 Pulse Rate 98 H 01/12/19 17:00 Respiratory Rate 20 01/12/19 17:00 Blood Pressure 126/63 01/12/19 17:00 O2 Sat by Pulse Oximetry (%) 96 01/12/19 09:00 Constitutional: Calm Cardiovascular: Yes: Pulse Irregular (regular rate) Respiratory: Yes: Rhonchi (left lung base) Gastrointestinal Inspection: Yes: Distention, Hernia (incicional hernia left paramedian, reducible, non-tender), Scars (midline vertical scar) ...Auscultate: Yes: Normoactive Bowel Sounds ...Palpate: Yes: Soft ...Percussion: No: Tympanitic Edema: No (No LE edema) Neurological: Yes: Alert Labs: CBC, BMP 01/12/19 17:05 01/12/19 05:30 INR, PTT INR 0.97 (0.83-1.09) 01/10/19 13:02 Problem List - Problems (1) Anemia Assessment/Plan: When medically optimized, discussed EGD with Ms. Taylor in order to evaluate for source of bleeding such as bleeding, blood vessel, PUD, gastritis, polyp, mass lesion. Discussed risks of procedure like buit not limited to bleeding, perforation requiring surgery to repair, infection, sedation medication effects allo of which could be potentially life threatening. She has declined the procedure. Continue PPI drip for total 72 hours Monitor H/H and for signs of active GI bleeding Recall when Ms. Taylor is medically optimized and agreeable to procedure Code(s): D64.9 - ANEMIA, UNSPECIFIED Qualifiers: Anemia type: iron deficiency Iron deficiency anemia type: chronic blood loss Qualified Code(s): D50.0 - Iron deficiency anemia secondary to blood loss (chronic)
[2019-01-13] MEDS: PANTOPRAZOLE SODIUM 80 MG in SODIUM CHLORIDE 100 ML IVPB SCH ×2 (05:00→23:50)
[2019-01-13] MEDS: LEVOTHYROXINE NA 75 MCG TABLET (FP) PO SCH (06:14)
[2019-01-13 07:27] LABS: HEMATOCRIT 26.4 % (32.4-45.2); HEMOGLOBIN 8.9 GM/dL (10.7-15.3); MCH 28.2 pg (25.7-33.7); MCHC 33.6 g/dl (32.0-36.0); MEAN PLT VOLUME 9.4 fl (7.5-11.1); PLATELET COUNT 273 K/MM3 (134-434); RBC 3.14 M/mm3 (3.60-5.2); RDW 16.4 % (11.6-15.6); WHITE BLOOD COUNT 7.3 K/mm3 (4.0-10.0)
[2019-01-13] MEDS: ALBUTEROL SO4 2.5/IPRATROPIUM 0.5 INH SOL 3 ML VIAL.NEB. NEB SCH ×4 (07:53→20:47)
[2019-01-13 08:00] LABS: CALCIUM 8.5 mg/dL (8.5-10.1); CREATININE 2.9 mg/dL (0.55-1.3); MAGNESIUM 2.3 mg/dL (1.8-2.4); PHOSPHOROUS 4.2 mg/dL (2.5-4.9)
--- NOTE | 2019-01-13 08:17 | HP ---
Admitting History and Physical - Past Medical History Cardiovascular: Yes: CAD, HTN, MD (25 yrs ago) Pulmonary: Yes: Bronchitis, COPD, O2 Dependent, Pneumonia. No: Previously Intubated, Pulmonary Embolus, Pulmonary Fibrosis, Sleep Apnea Renal/: Yes: Renal Inusuff Heme/Onc: Yes: Cancer (Breast CA) Endocrine: Yes: Hypothyroidism - Smoking History Smoking history: Current every day smoker Have you smoked in the past 12 months: Yes Aproximately how many cigarettes per day: 5 - Alcohol/Substance Use Hx Alcohol Use: No History of Substance Use: reports: None Home Medications - Allergies Allergies/Adverse Reactions: Allergies Allergy/AdvReac Type Severity Reaction Status Date / Time cefuroxime [From Ceftin] Allergy Verified 01/10/19 11:36 orange Allergy Verified 01/10/19 11:36 orange juice Allergy Verified 01/10/19 11:36 Penicillins Allergy Verified 01/10/19 11:36 - Home Medications Home Medications: Ambulatory Orders Allopurinol [Zyloprim -] 100 mg PO DAILY 08/30/18 Budesonide/Formeterol Fumarate [SYMBICORT 160/4.5mcg -] 2 inh PO BID 08/30/18 Calcium Carbonate/Vitamin D3 [Calcium 600+D Softgel] 2 each PO DAILY 08/30/18 Docusate Sodium [Colace] 100 mg PO BID 08/30/18 Levothyroxine [Synthroid -] 75 mcg PO DAILY 08/30/18 Apixaban [Eliquis -] 5 mg PO BID #20 tablet 09/30/18 Acetaminophen [Tylenol] 650 mg PO Q6H PRN 01/10/19 Albuterol Sulfate Inhaler - [Ventolin Hfa Inhaler -] 1 inh PO Q4H PRN 01/10/19 Albuterol Sulfate [Proair Hfa] 8.5 gm IH TID PRN 01/10/19 Amlodipine Besylate [Norvasc -] 10 mg PO DAILY 01/10/19 Bacitracin - [Bacitracin Topical Ointment -] 1 applic TP DAILY 01/10/19 Ferrous Sulfate [Iron] 143 mg PO DAILY 01/10/19 Furosemide 20 mg PO DAILY 01/10/19 Sulfamethoxazole/Trimethoprim [Bactrim Ds -] 1 tab PO BID 01/10/19 Umeclidinium [place] [Incruse Ellipta] 62.5 mcg IH DAILY 01/10/19 Family Disease History - Family Disease History Family Disease History: CA: Sister Physical Examination Vital Signs: Vital Signs Temperature 98.2 F 01/13/19 05:52 Pulse Rate 85 01/13/19 05:52 Respiratory Rate 21 H 01/13/19 05:52 Blood Pressure 141/74 01/13/19 05:52 O2 Sat by Pulse Oximetry (%) 96 01/13/19 07:52 Constitutional: Yes: Calm. No: Anxious (eh[iew ujf) Eyes: Yes: WNL HENT: Yes: WNL, Atraumatic, Normocephalic Neck: Yes: WNL, Supple, Trachea Midline, Decreased ROM, Lymphadenopathy, Rigid, Tenderness, Thyromegaly, Other Cardiovascular: No: WNL, Regular Rate and Rhythm, Bradycardia, Tachycardia, Pulse Irregular, Bruit, JVD, Gallop, Murmur, Rub, S1, S2, S3, S4, Varicosities, Other Respiratory: Yes: WNL, CTA Bilaterally. No: Regular, Accessory Muscle Use, Bradypnea, Vahid-Cisneros, Cough, Diminished, Dullness, Hyperresonant, Intubated , Kussmaul, Mechanically Ventilated, On BiPap, On Nasal O2, On Venti-Mask, Orthopnea, Poor Air Entry, Rales, Rhonchi, SOB, SOB on Exertion, Stridor, Tachypnea, Wheezes, Other Labs: CBC, BMP 01/13/19 05:30 01/13/19 05:30 Visit type - Emergency Visit Emergency Visit: Yes ED Registration Date: 01/10/19 Care time: The patient presented to the Emergency Department on the above date and was hospitalized for further evaluation of their emergent condition. - New Patient This patient is new to me today: No
--- NOTE | 2019-01-13 09:45 | PN.GI ---
GI Progress Note Subjective: Pt seen/examined at bedside, feels better, breathing slightly improved (on ventimask currently), denies abdominal pain, n/v. No bms yet. Tolerating clear liquid diet. - Objective Vital Signs: Vital Signs Temperature 98.1 F 01/13/19 08:40 Pulse Rate 88 01/13/19 08:40 Respiratory Rate 20 01/13/19 08:40 Blood Pressure 142/68 01/13/19 08:40 O2 Sat by Pulse Oximetry (%) 96 01/13/19 07:52 Constitutional: Well Nourished, No Distress, Calm Cardiovascular: Yes: WNL, Regular Rate and Rhythm Respiratory: Yes: WNL, Regular, On Venti-Mask ...Palpate: Yes: Other (Abd soft, nt, nd) Labs: CBC, BMP 01/13/19 05:30 01/13/19 05:30 INR, PTT INR 0.97 (0.83-1.09) 01/10/19 13:02 Problem List - Problems (1) Anemia Assessment/Plan: 78yo female h/o breast ca, CHF, CAD, COPD on home O2 presenting with sob and severe anemia with evidence of iron deficiency. Continues to be optimized from a respiratory standpoint. No overt bleeding. Hb stable. Pt continues to refuse endoscopy. Potential for missed lesions were again discussed. -Continue to monitor Hb and for evidence of bleeding -Continue PPI gtt, can change to PPI po daily tomorrow if Hb remains stable and no evidence of bleeding -Please notify GI if patient decides to pursue endoscopic evaluation Code(s): D64.9 - ANEMIA, UNSPECIFIED Qualifiers: Anemia type: iron deficiency Iron deficiency anemia type: chronic blood loss Qualified Code(s): D50.0 - Iron deficiency anemia secondary to blood loss (chronic)
[2019-01-13] MEDS ORDERED: PT OWN MED DRAWER 7, Y5N ONE ×2 (10:14→21:24)
[2019-01-13] MEDS: DOXYCYCLINE INJECTION 100 MG in DEXTROSE 5%-WATER - 100 ML IVPB SCH ×3 (10:21→23:50)
[2019-01-13] MEDS: BACITRACIN 15 GM TUBE TOPICAL OINTMENT TP SCH (10:22)
[2019-01-13] MEDS: DOCUSATE SODIUM 100 MG CAPSULE (FP) PO SCH ×2 (10:22→22:10)
[2019-01-13] MEDS: methylPREDNISolone NA SUCC 40 MG/1 ML VIAL IVPUSH SCH (10:22)
[2019-01-13] MEDS: BUDESONIDE/FORMETEROL FUMARATE 160/4.5 mcg INHALER IH SCH ×2 (10:23→22:10)
--- NOTE | 2019-01-13 11:44 | PN ---
Progress Note, Physician History of Present Illness: Pt seen and examined at bedside. She is awake and alert. She feels that her breathing is much improved. She denies dysuria. - Current Medication List Current Medications: Active Medications Acetaminophen (Tylenol -) 650 mg PO Q6H PRN PRN Reason: PAIN LEVEL 1-5 Albuterol Sulfate (Ventolin 0.083% Nebulizer Soln -) 1 amp NEB Q4H PRN PRN Reason: SHORT OF BREATH/WHEEZING Albuterol/Ipratropium (Duoneb -) 1 amp NEB RQID [facility] Last Admin: 01/13/19 11:10 Dose: 1 amp Bacitracin (Bacitracin -) 1 applic TP DAILY [facility] Last Admin: 01/13/19 10:22 Dose: 1 applic Budesonide/Formoterol Fumarate (Symbicort 160/4.5mcg -) 2 puff IH BID [facility] Last Admin: 01/13/19 10:23 Dose: 2 puff Docusate Sodium (Colace -) 100 mg PO BID [facility] Last Admin: 01/13/19 10:22 Dose: 100 mg Pantoprazole Sodium 80 mg/ (Sodium Chloride) 100 mls @ 10 mls/hr IVPB Q10H [facility] Last Admin: 01/13/19 05:00 Dose: 10 mls/hr Doxycycline Hyclate 100 mg/ (Dextrose) 100 mls @ 100 mls/hr IVPB BID [facility] Last Admin: 01/13/19 10:21 Dose: 100 mls/hr Levothyroxine Sodium (Synthroid -) 75 mcg PO DAILY@0700 [facility] Last Admin: 01/13/19 06:14 Dose: 75 mcg Methylprednisolone Sodium Succinate (Solu-Medrol -) 40 mg IVPUSH DAILY [facility] Last Admin: 01/13/19 10:22 Dose: 40 mg - Objective Vital Signs: Vital Signs Temperature 98.1 F 01/13/19 08:40 Pulse Rate 88 01/13/19 08:40 Respiratory Rate 20 01/13/19 09:00 Blood Pressure 142/68 01/13/19 08:40 O2 Sat by Pulse Oximetry (%) 96 01/13/19 11:25 Constitutional: Yes: Calm Eyes: Yes: Conjunctiva Clear HENT: Yes: Atraumatic Neck: Yes: Supple Cardiovascular: Yes: S1, S2 Respiratory: Yes: On Nasal O2 Gastrointestinal: Yes: Normal Bowel Sounds, Soft Genitourinary: Yes: WNL Musculoskeletal: Yes: WNL Edema: Yes Edema: LLE: 1+, RLE: 1+ Neurological: Yes: Oriented Psychiatric: Yes: Oriented Labs: CBC, BMP 01/13/19 05:30 01/13/19 05:30 INR, PTT INR 0.97 (0.83-1.09) 01/10/19 13:02 Problem List - Problems (1) Anemia Code(s): D64.9 - ANEMIA, UNSPECIFIED Qualifiers: Anemia type: iron deficiency Iron deficiency anemia type: chronic blood loss Qualified Code(s): D50.0 - Iron deficiency anemia secondary to blood loss (chronic) (2) CKD (chronic kidney disease) Code(s): N18.9 - CHRONIC KIDNEY DISEASE, UNSPECIFIED Qualifiers: Assessment/Plan Current Medications Generic Name Dose Route Start Last Admin Trade Name Freq PRN Reason Stop Dose Admin Acetaminophen 650 mg 01/10/19 16:07 Tylenol - PO Q6H PRN PAIN LEVEL 1-5 Albuterol Sulfate 1 amp 01/10/19 16:08 Ventolin 0.083% Nebulizer Soln - NEB Q4H PRN SHORT OF BREATH/WHEEZING Albuterol/Ipratropium 1 amp 01/10/19 20:00 01/13/19 11:10 Duoneb - NEB 1 amp RQID KASSIDY Administration Bacitracin 1 applic 01/11/19 10:00 01/13/19 10:22 Bacitracin - TP 1 applic DAILY [facility]Y Administration Budesonide/Formoterol Fumarate 2 puff 01/10/19 22:00 01/13/19 10:23 Symbicort 160/4.5mcg - IH 2 puff BID KASSIDY Administration Docusate Sodium 100 mg 01/10/19 22:00 01/13/19 10:22 Colace - PO 100 mg BID KASSIDY Administration Pantoprazole Sodium 80 mg/ 100 mls @ 10 mls/hr 01/10/19 15:45 01/13/19 05:00 Sodium Chloride IVPB 10 mls/hr Q10H KASSIDY Administration 8 MG/HR Doxycycline Hyclate 100 mg/ 100 mls @ 100 mls/hr 01/11/19 10:00 01/13/19 10: 21 Dextrose IVPB 100 mls/hr BID K[facility]IDY Administration Levothyroxine Sodium 75 mcg 01/11/19 07:00 01/13/19 06:14 Synthroid - PO 75 mcg DAILY@0700 K[facility]Y Administration Methylprednisolone Sodium Succinate 40 mg 01/11/19 14:00 01/13/19 10:22 Solu-Medrol - IVPUSH 40 mg DAILY K[facility]IDY Administration Impression 1. CKD 2. hypothyroidism 3. breast cancer 4. pleural effusion 5. gout 6. asthma 7. liver disease 8. copd 9. asthma 10. a-fib 11. PATY 12. anemia Plan - follow serologies - renal function stabilizing - lasix as needed - monitor hg - volume status is improving - avoid nsaids
--- NOTE | 2019-01-13 11:53 | PN ---
Progress Note, Physician History of Present Illness: PULMONARY ALERT,FEELING BETTER,LESS DYSPNEIC - Current Medication List Current Medications: Active Medications Acetaminophen (Tylenol -) 650 mg PO Q6H PRN PRN Reason: PAIN LEVEL 1-5 Albuterol Sulfate (Ventolin 0.083% Nebulizer Soln -) 1 amp NEB Q4H PRN PRN Reason: SHORT OF BREATH/WHEEZING Albuterol/Ipratropium (Duoneb -) 1 amp NEB RQID [facility] Last Admin: 01/13/19 11:10 Dose: 1 amp Bacitracin (Bacitracin -) 1 applic TP DAILY [facility] Last Admin: 01/13/19 10:22 Dose: 1 applic Budesonide/Formoterol Fumarate (Symbicort 160/4.5mcg -) 2 puff IH BID [facility] Last Admin: 01/13/19 10:23 Dose: 2 puff Docusate Sodium (Colace -) 100 mg PO BID [facility] Last Admin: 01/13/19 10:22 Dose: 100 mg Pantoprazole Sodium 80 mg/ (Sodium Chloride) 100 mls @ 10 mls/hr IVPB Q10H [facility] Last Admin: 01/13/19 05:00 Dose: 10 mls/hr Doxycycline Hyclate 100 mg/ (Dextrose) 100 mls @ 100 mls/hr IVPB BID [facility] Last Admin: 01/13/19 10:21 Dose: 100 mls/hr Levothyroxine Sodium (Synthroid -) 75 mcg PO DAILY@0700 [facility] Last Admin: 01/13/19 06:14 Dose: 75 mcg Methylprednisolone Sodium Succinate (Solu-Medrol -) 40 mg IVPUSH DAILY [facility] Last Admin: 01/13/19 10:22 Dose: 40 mg - Objective Vital Signs: Vital Signs Temperature 98.1 F 01/13/19 08:40 Pulse Rate 88 01/13/19 08:40 Respiratory Rate 20 01/13/19 09:00 Blood Pressure 142/68 01/13/19 08:40 O2 Sat by Pulse Oximetry (%) 96 01/13/19 11:25 Constitutional: Yes: Well Nourished, Calm Eyes: Yes: WNL HENT: Yes: WNL Neck: Yes: WNL Cardiovascular: Yes: Pulse Irregular, S1, S2 Respiratory: Yes: Wheezes (SCATTERED ANA WHEEZES) Gastrointestinal: Yes: Normal Bowel Sounds, Soft Extremities: Yes: WNL Edema: Yes Labs: CBC, BMP 01/13/19 05:30 01/13/19 05:30 INR, PTT INR 0.97 (0.83-1.09) 01/10/19 13:02 Assessment/Plan Problem List - Problems (1) Anemia Code(s): D64.9 - ANEMIA, UNSPECIFIED Qualifiers: Anemia type: iron deficiency Iron deficiency anemia type: chronic blood loss Qualified Code(s): D50.0 - Iron deficiency anemia secondary to blood loss (chronic) (2) Pneumonia Code(s): J18.9 - PNEUMONIA, UNSPECIFIED ORGANISM (3) A-fib Code(s): I48.91 - UNSPECIFIED ATRIAL FIBRILLATION Qualifiers: Atrial fibrillation type: paroxysmal Qualified Code(s): I48.0 - Paroxysmal atrial fibrillation (4) Allergy to multiple antibiotics Code(s): Z88.1 - ALLERGY STATUS TO OTHER ANTIBIOTIC AGENTS STATUS (5) Asthma Code(s): J45.909 - UNSPECIFIED ASTHMA, UNCOMPLICATED (6) Breast mass, right Code(s): N63.10 - UNSPECIFIED LUMP IN THE RIGHT BREAST, UNSPECIFIED QUADRANT (7) CHF (congestive heart failure) Code(s): I50.9 - HEART FAILURE, UNSPECIFIED Qualifiers: Heart failure type: diastolic Heart failure chronicity: acute on chronic Qualified Code(s): I50.33 - Acute on chronic diastolic (congestive) heart failure (8) CKD (chronic kidney disease) Code(s): N18.9 - CHRONIC KIDNEY DISEASE, UNSPECIFIED Qualifiers: (9) Cough Code(s): R05 - COUGH (10) Diastolic dysfunction Code(s): I51.9 - HEART DISEASE, UNSPECIFIED (11) Dyspnea Code(s): R06.00 - DYSPNEA, UNSPECIFIED Qualifiers: Dyspnea type: shortness of breath Qualified Code(s): R06.02 - Shortness of breath; R06.00 - Dyspnea, unspecified; R06.01 - Orthopnea (12) Gout Code(s): M10.9 - GOUT, UNSPECIFIED (13) H/O malignant neoplasm of breast Code(s): Z85.3 - PERSONAL HISTORY OF MALIGNANT NEOPLASM OF BREAST (14) HTN (hypertension) Code(s): I10 - ESSENTIAL (PRIMARY) HYPERTENSION Qualifiers: Hypertension type: essential hypertension Qualified Code(s): I10 - Essential (primary) hypertension (15) Pleural effusion Code(s): J90 - PLEURAL EFFUSION, NOT ELSEWHERE CLASSIFIED Assessment/Plan ABX O2 as needed to maintain saturation BD TX PRN Medrol F/U chest ct 4- 6 weeks after discharge to confirm resolution of infiltrates normal transfusion threshold DR GAINES
--- NOTE | 2019-01-13 12:11 | PN ---
Progress Note, Physician History of Present Illness: Dyspnea improved now on NC after diuresis, continues to decline endoscopy despite knowing risk of missing masses/lesions precluding treatment. - Current Medication List Current Medications: Active Medications Acetaminophen (Tylenol -) 650 mg PO Q6H PRN PRN Reason: PAIN LEVEL 1-5 Albuterol Sulfate (Ventolin 0.083% Nebulizer Soln -) 1 amp NEB Q4H PRN PRN Reason: SHORT OF BREATH/WHEEZING Albuterol/Ipratropium (Duoneb -) 1 amp NEB RQID [facility] Last Admin: 01/13/19 11:10 Dose: 1 amp Bacitracin (Bacitracin -) 1 applic TP DAILY [facility] Last Admin: 01/13/19 10:22 Dose: 1 applic Budesonide/Formoterol Fumarate (Symbicort 160/4.5mcg -) 2 puff IH BID [facility] Last Admin: 01/13/19 10:23 Dose: 2 puff Docusate Sodium (Colace -) 100 mg PO BID [facility] Last Admin: 01/13/19 10:22 Dose: 100 mg Pantoprazole Sodium 80 mg/ (Sodium Chloride) 100 mls @ 10 mls/hr IVPB Q10H [facility] Last Admin: 01/13/19 05:00 Dose: 10 mls/hr Doxycycline Hyclate 100 mg/ (Dextrose) 100 mls @ 100 mls/hr IVPB BID [facility] Last Admin: 01/13/19 10:21 Dose: 100 mls/hr Levothyroxine Sodium (Synthroid -) 75 mcg PO DAILY@0700 [facility] Last Admin: 01/13/19 06:14 Dose: 75 mcg Methylprednisolone Sodium Succinate (Solu-Medrol -) 40 mg IVPUSH DAILY [facility] Last Admin: 01/13/19 10:22 Dose: 40 mg - Objective Vital Signs: Vital Signs Temperature 98.1 F 01/13/19 08:40 Pulse Rate 88 01/13/19 08:40 Respiratory Rate 20 01/13/19 09:00 Blood Pressure 142/68 01/13/19 08:40 O2 Sat by Pulse Oximetry (%) 96 01/13/19 11:25 Constitutional: Yes: No Distress, Calm Neck: Yes: Supple Cardiovascular: Yes: Regular Rate and Rhythm Respiratory: Yes: Regular, Diminished, On Nasal O2 Gastrointestinal: Yes: Soft, Hypoactive Bowel Sounds Edema: No Labs: CBC, BMP 01/13/19 05:30 01/13/19 05:30 INR, PTT INR 0.97 (0.83-1.09) 01/10/19 13:02 Problem List - Problems (1) Anemia Code(s): D64.9 - ANEMIA, UNSPECIFIED Qualifiers: Anemia type: iron deficiency Iron deficiency anemia type: chronic blood loss Qualified Code(s): D50.0 - Iron deficiency anemia secondary to blood loss (chronic) (2) A-fib Code(s): I48.91 - UNSPECIFIED ATRIAL FIBRILLATION Qualifiers: Atrial fibrillation type: paroxysmal Qualified Code(s): I48.0 - Paroxysmal atrial fibrillation (3) CHF (congestive heart failure) Code(s): I50.9 - HEART FAILURE, UNSPECIFIED Qualifiers: Heart failure type: diastolic Heart failure chronicity: acute on chronic Qualified Code(s): I50.33 - Acute on chronic diastolic (congestive) heart failure (4) CKD (chronic kidney disease) Code(s): N18.9 - CHRONIC KIDNEY DISEASE, UNSPECIFIED Qualifiers: (5) Dyspnea Code(s): R06.00 - DYSPNEA, UNSPECIFIED Qualifiers: Dyspnea type: shortness of breath Qualified Code(s): R06.02 - Shortness of breath; R06.00 - Dyspnea, unspecified; R06.01 - Orthopnea (6) HTN (hypertension) Code(s): I10 - ESSENTIAL (PRIMARY) HYPERTENSION Qualifiers: Hypertension type: essential hypertension Qualified Code(s): I10 - Essential (primary) hypertension Assessment/Plan 09/24/2018 Echo: Normal LV and RV size and fxn, tr MR, TR 1. Dyspnea referable to chronic blood loss anemia 2. Acute on chronic diastolic heart failure post PRBC transfusion resolved 3. COPD 4. CAD with demand ischemia 5. Paroxysmal AF->SR 6. hypothyroidism 7. CKD 8. History of breast CA 9. Prolonqed QTc PLAN: 1. Monitor CBC. Transfuse PRBC as needed. Currently Eliquis held and to decide whether to restart it pending achievement of hemostasis 2. Oral diuresis with monitoring renal function and electrolytes as needed. Trend troponins to document peak 3. Bronchodilators, IV steroid taper, empiric abx course and supplemental O2 as needed 4. Resume Amlodipine 10 qd when tolerated 5. GI and Hematology input noted. Continue PPI
[2019-01-13 18:13] LABS: FREE KAPPA,SERUM 52.2 mg/L (3.3-19.4)
--- NOTE | 2019-01-13 18:28 | PN ---
Teaching Attending Note Name of Resident: Sukhdeep Ely ATTENDING PHYSICIAN STATEMENT I saw and evaluated the patient. I reviewed the resident's note and discussed the case with the resident. I agree with the resident's findings and plan as documented. SUBJECTIVE: Ms Taylor says she is feeling fine. Denies cp, sob, n/v. OBJECTIVE: Last Vital Signs Temp Pulse Resp BP Pulse Ox 36.8 C 90 20 144/91 93 L 01/13/19 17:00 01/13/19 17:00 01/13/19 17:00 01/13/19 17:00 01/13/19 15:47 Gen: nad Pulm: ctab w/o w/r/r CV: irreg irreg w/o m/r/g Abd: +bs, s/nt, +distention Ext: no c/c/e CBC, BMP 01/13/19 05:30 01/13/19 05:30 ASSESSMENT AND PLAN: Problem List - Problems (1) GIB (gastrointestinal bleeding) Assessment/Plan: -patient with anemia and positive occult blood in stool -suspect GIB -on protonix gtt -patient is agreeable to endoscopy -GI following -monitor H/H -transfuse as needed but stable Code(s): K92.2 - GASTROINTESTINAL HEMORRHAGE, UNSPECIFIED (2) Pneumonia Assessment/Plan: -? atelectasis vs consilidation on CT scan and chest x-ray -no fevers -no leukocytosis prior to addition of steroids -s/p 3 days of rocephin -continue empiric doxycycline Code(s): J18.9 - PNEUMONIA, UNSPECIFIED ORGANISM (3) Acute exacerbation of chronic obstructive airways disease Assessment/Plan: -appreciate pulmonary assistance -continue steroids and bronchodilators Code(s): J44.1 - CHRONIC OBSTRUCTIVE PULMONARY DISEASE W (ACUTE) EXACERBATION (4) CHF (congestive heart failure) Assessment/Plan: -cardiology note reviewed -defer diuretics to cardiology Code(s): I50.9 - HEART FAILURE, UNSPECIFIED Qualifiers: Heart failure type: diastolic Heart failure chronicity: acute on chronic Qualified Code(s): I50.33 - Acute on chronic diastolic (congestive) heart failure (5) HTN (hypertension) Assessment/Plan: -controlled Code(s): I10 - ESSENTIAL (PRIMARY) HYPERTENSION Qualifiers: Hypertension type: essential hypertension Qualified Code(s): I10 - Essential (primary) hypertension (6) H/O malignant neoplasm of breast Assessment/Plan: -noted Code(s): Z85.3 - PERSONAL HISTORY OF MALIGNANT NEOPLASM OF BREAST (7) CKD (chronic kidney disease) Assessment/Plan: -case d/w Dr Whalen -improving Code(s): N18.9 - CHRONIC KIDNEY DISEASE, UNSPECIFIED Qualifiers:
--- NOTE | 2019-01-13 18:50 | PN ---
Physical Exam: SUBJECTIVE: Patient seen and examined at bedside. Feeling better today. Did not use bipap overnight but slept well. OBJECTIVE: Vital Signs Temperature 98.2 F 01/13/19 17:00 Pulse Rate 90 01/13/19 17:00 Respiratory Rate 20 01/13/19 17:00 Blood Pressure 144/91 01/13/19 17:00 O2 Sat by Pulse Oximetry (%) 93 L 01/13/19 15:47 GENERAL: The patient is awake, alert, and fully oriented, in no acute distress. On ventimask HEAD: Normal with no signs of trauma. ENT: Ears normal, nares patent LUNGS: b/l wheezing improved. HEART: Regular rate and rhythm, S1, S2 ABDOMEN: Soft, nontender, nondistended, normoactive bowel sounds. Large ventral hernia. EXTREMITIES: warm, well-perfused, no edema. NEUROLOGICAL: Cranial nerves II through XII grossly intact. Normal speech, gait not observed. PSYCH: Normal mood, normal affect. SKIN: Warm, dry Laboratory Results - last 24 hr 01/12/19 01/12/19 01/13/19 05:30 05:30 05:30 WBC 7.3 RBC 3.14 L Hgb 8.9 L Hct 26.4 L MCV 84.0 MCH 28.2 MCHC 33.6 RDW 16.4 H Plt Count 273 MPV 9.4 D Haptoglobin 203 H Sodium Potassium Chloride Carbon Dioxide Anion Gap BUN Creatinine Est GFR (CKD-EPI)AfAm Est GFR (CKD-EPI)NonAf Random Glucose Calcium Phosphorus Magnesium Iron 19 L TIBC 354 Iron Saturation 5 L Transferrin 252 Double Strand DNA Ab <1 Free [place] LC, Quant 52.2 H Free Lambda LC, Quant 30.5 H Free [place]/Lambda Ratio 1.71 H 01/13/19 05:30 WBC RBC Hgb Hct MCV MCH MCHC RDW Plt Count MPV Haptoglobin Sodium 140 Potassium 4.0 Chloride 102 Carbon Dioxide 32 Anion Gap 5 L BUN 53 H Creatinine 2.9 H Est GFR (CKD-EPI)AfAm 17.49 Est GFR (CKD-EPI)NonAf 15.09 Random Glucose 76 Calcium 8.5 Phosphorus 4.2 Magnesium 2.3 Iron TIBC Iron Saturation Transferrin Double Strand DNA Ab Free [place] LC, Quant Free Lambda LC, Quant Free [place]/Lambda Ratio Active Medications Generic Name Dose Route Start Last Admin Trade Name Freq PRN Reason Stop Dose Admin Acetaminophen 650 mg 01/10/19 16:07 Tylenol - PO Q6H PRN PAIN LEVEL 1-5 Albuterol Sulfate 1 amp 01/10/19 16:08 Ventolin 0.083% Nebulizer Soln - NEB Q4H PRN SHORT OF BREATH/WHEEZING Albuterol/Ipratropium 1 amp 01/10/19 20:00 01/13/19 15:47 Duoneb - NEB 1 amp RQID KASSIDY Administration Amlodipine Besylate 5 mg 01/14/19 10:00 Norvasc - PO DAILY K[facility]Y Bacitracin 1 applic 01/11/19 10:00 01/13/19 10:22 Bacitracin - TP 1 applic DAILY K[facility]IDY Administration Budesonide/Formoterol Fumarate 2 puff 01/10/19 22:00 01/13/19 10:23 Symbicort 160/4.5mcg - IH 2 puff BID K[facility]IDY Administration Docusate Sodium 100 mg 01/10/19 22:00 01/13/19 10:22 Colace - PO 100 mg BID [facility]Y Administration Pantoprazole Sodium 80 mg/ 100 mls @ 10 mls/hr 01/10/19 15:45 01/13/19 05:00 Sodium Chloride IVPB 10 mls/hr Q10H K[facility]IDY Administration 8 MG/HR Doxycycline Hyclate 100 mg/ 100 mls @ 100 mls/hr 01/11/19 10:00 01/13/19 10: 21 Dextrose IVPB 100 mls/hr BID [facility]Y Administration Levothyroxine Sodium 75 mcg 01/11/19 07:00 01/13/19 06:14 Synthroid - PO 75 mcg DAILY@0700 [facility] Administration Methylprednisolone Sodium Succinate 40 mg 01/11/19 14:00 01/13/19 10:22 Solu-Medrol - IVPUSH 40 mg DAILY [facility] Administration ASSESSMENT/PLAN: 78 y/o F w/PMH of invasive ductal R breast ca (dx'd 10 years ago, recently declined chemo/RT), COPD (on 2L home O2), dCHF, CAD, HTN, HLD, CVA (w/no residual deficits), hypothyroidism, gout, recent LLL Pna with pleural effusion s /p thoracentesis (09/2018) admitted for SOB, anemia (requiring transfusion), FOBT +, and PATY on CKD. -SOB (acute on chronic hypoxic respiratory failure) -secondary to possible pna vs acute on chronic chf exacerbation superimposed with anemia and COPD exacerbation -Anemia -FOBT+, GI following, 3 units PRBC so far -transfuse to keep Hgb >8 -PPI drip. Change to ppi po daily tomorrow if hgb stable. -Will need discussion of EGD once stabilized. At this time refusing when speaking to GI doctors but was agreeable this AM when I spoke with her. -acute on chronic CHF exacerbation -Bipap prn, currently on VM -monitor i/os, daily weights -PNA -doxy for 5-7 days -ceftriaxone stopped -f/u BCx -COPD exacerbation -Pulm following -Duo-neb QID, alb nebs PRN, symbicort, bipap PRN, O2 supp to keep saturation above 90% (on home O2 at 2L) -solu-medrol 40 mg IVP qd -CT C/A/P: lingular consolidation/atelectasis, small b/l pleural effusions w/ bibasilar atelectasis, mod renal atrophy R>L, large ventral hernia anterior abdominal wall. -F/u CT chest in 4-6 weeks after discharge -Hypothyroidism -c/w synthroid 75mcg qAM -PATY on CKD -Cr 2.9, continue to monitor -Nephrology following -avoid nephrotoxic agents -Hx of breast ca -Palliative consult as pt does not want treatment -Elevated trop -Likely demand, will monitor. No chest pain. -Afib -Hold AC with anemia -Echo noted, mostly unremarkable -HTN -restart norvasc 10mg qd if hypertensive -LLE wound -wound care. LLE duplex US negative for DVT -DVT ppx -SCDs -FEN -No fluids -Monitor electrolytes -Clear liquid diet -Dispo: Monitor on tele -Code Status: DNR/DNI Visit type - Emergency Visit Emergency Visit: Yes ED Registration Date: 01/10/19 Care time: The patient presented to the Emergency Department on the above date and was hospitalized for further evaluation of their emergent condition. - New Patient This patient is new to me today: No - Critical Care Critical Care patient: No
[2019-01-14] MEDS: PANTOPRAZOLE SODIUM 80 MG in SODIUM CHLORIDE 100 ML IVPB SCH ×2 (01:00→09:48)
[2019-01-14 05:11] LABS: HBSAG SCREEN Negative (Negative); HEP A AB, IGM Negative (Negative); HEP B CORE AB, TOT Negative (Negative)
[2019-01-14] MEDS: ALBUTEROL SO4 2.5/IPRATROPIUM 0.5 INH SOL 3 ML VIAL.NEB. NEB SCH ×4 (05:20→20:12)
[2019-01-14] MEDS: LEVOTHYROXINE NA 75 MCG TABLET (FP) PO SCH (06:04)
[2019-01-14 07:33] LABS: BASO % 0.3 % (0-2.0); EOS % 0.4 % (0-4.5); HEMOGLOBIN 9.2 GM/dL (10.7-15.3); LYMPH % 17.2 % (8-40); MCH 27.9 pg (25.7-33.7); MCHC 32.9 g/dl (32.0-36.0); MEAN CELL VOLUME 84.8 fl (80-96); MEAN PLT VOLUME 8.4 fl (7.5-11.1); NEUT % 75.1 % (42.8-82.8); PLATELET COUNT 288 K/MM3 (134-434); RDW 16.5 % (11.6-15.6); WHITE BLOOD COUNT 7.2 K/mm3 (4.0-10.0)
[2019-01-14 08:18] LABS: CALCIUM 8.8 mg/dL (8.5-10.1); CREATININE 2.4 mg/dL (0.55-1.3); MAGNESIUM 2.5 mg/dL (1.8-2.4); PHOSPHOROUS 3.8 mg/dL (2.5-4.9); POTASSIUM 3.9 mmol/L (3.5-5.1)
--- NOTE | 2019-01-14 09:40 | PN ---
Progress Note, Physician History of Present Illness: Dyspnea improved now on NC after diuresis, reports dark stools, now agreeable for EGD+/-colonoscopy tomorrow. - Current Medication List Current Medications: Active Medications Acetaminophen (Tylenol -) 650 mg PO Q6H PRN PRN Reason: PAIN LEVEL 1-5 Albuterol Sulfate (Ventolin 0.083% Nebulizer Soln -) 1 amp NEB Q4H PRN PRN Reason: SHORT OF BREATH/WHEEZING Albuterol/Ipratropium (Duoneb -) 1 amp NEB RQID [facility] Last Admin: 01/14/19 08:40 Dose: 1 amp Amlodipine Besylate (Norvasc -) 5 mg PO DAILY [facility] Bacitracin (Bacitracin -) 1 applic TP DAILY [facility] Last Admin: 01/13/19 10:22 Dose: 1 applic Budesonide/Formoterol Fumarate (Symbicort 160/4.5mcg -) 2 puff IH BID [facility] Last Admin: 01/13/19 22:10 Dose: 2 puff Docusate Sodium (Colace -) 100 mg PO BID [facility] Last Admin: 01/13/19 22:10 Dose: 100 mg Pantoprazole Sodium 80 mg/ (Sodium Chloride) 100 mls @ 10 mls/hr IVPB Q10H [facility] Last Admin: 01/14/19 01:00 Dose: 10 mls/hr Doxycycline Hyclate 100 mg/ (Dextrose) 100 mls @ 100 mls/hr IVPB BID [facility] Last Admin: 01/13/19 23:50 Dose: 100 mls/hr Levothyroxine Sodium (Synthroid -) 75 mcg PO DAILY@0700 [facility] Last Admin: 01/14/19 06:04 Dose: 75 mcg Methylprednisolone Sodium Succinate (Solu-Medrol -) 40 mg IVPUSH DAILY [facility] Last Admin: 01/13/19 10:22 Dose: 40 mg - Objective Vital Signs: Vital Signs Temperature 98.4 F 01/14/19 06:00 Pulse Rate 98 H 01/14/19 06:00 Respiratory Rate 20 01/14/19 06:00 Blood Pressure 139/73 01/14/19 06:00 O2 Sat by Pulse Oximetry (%) 97 01/14/19 07:31 Constitutional: Yes: No Distress, Calm Neck: Yes: Supple Cardiovascular: Yes: Regular Rate and Rhythm Respiratory: Yes: Regular, Diminished, On Nasal O2 Gastrointestinal: Yes: Soft, Hypoactive Bowel Sounds Edema: No Labs: CBC, BMP 01/14/19 06:25 01/14/19 06:25 INR, PTT INR 0.97 (0.83-1.09) 01/10/19 13:02 Problem List - Problems (1) Anemia Code(s): D64.9 - ANEMIA, UNSPECIFIED Qualifiers: Anemia type: iron deficiency Iron deficiency anemia type: chronic blood loss Qualified Code(s): D50.0 - Iron deficiency anemia secondary to blood loss (chronic) (2) A-fib Code(s): I48.91 - UNSPECIFIED ATRIAL FIBRILLATION Qualifiers: Atrial fibrillation type: paroxysmal Qualified Code(s): I48.0 - Paroxysmal atrial fibrillation (3) CHF (congestive heart failure) Code(s): I50.9 - HEART FAILURE, UNSPECIFIED Qualifiers: Heart failure type: diastolic Heart failure chronicity: acute on chronic Qualified Code(s): I50.33 - Acute on chronic diastolic (congestive) heart failure (4) CKD (chronic kidney disease) Code(s): N18.9 - CHRONIC KIDNEY DISEASE, UNSPECIFIED Qualifiers: (5) Dyspnea Code(s): R06.00 - DYSPNEA, UNSPECIFIED Qualifiers: Dyspnea type: shortness of breath Qualified Code(s): R06.02 - Shortness of breath; R06.00 - Dyspnea, unspecified; R06.01 - Orthopnea (6) HTN (hypertension) Code(s): I10 - ESSENTIAL (PRIMARY) HYPERTENSION Qualifiers: Hypertension type: essential hypertension Qualified Code(s): I10 - Essential (primary) hypertension Assessment/Plan 09/24/2018 Echo: Normal LV and RV size and fxn, tr MR, TR 1. Dyspnea referable to chronic blood loss anemia 2. Acute on chronic diastolic heart failure post PRBC transfusion resolved 3. COPD 4. CAD with demand ischemia 5. Paroxysmal AF->SR 6. hypothyroidism 7. CKD 8. History of breast CA 9. Prolonqed QTc PLAN: 1. Monitor CBC. Transfuse PRBC as needed. Currently Eliquis held and to decide whether to restart it pending achievement of hemostasis and endoscopic evaluation 2. Oral diuresis with monitoring renal function and electrolytes as needed. Troponins have peaked 3. Bronchodilators, IV steroid taper, empiric abx course and supplemental O2 as needed 4. Resumed Amlodipine 10 qd when tolerated 5. GI and Hematology input noted. Continue PPI
[2019-01-14] MEDS: amLODIPine BESYLATE 5 MG TABLET (FP) PO SCH (09:47)
[2019-01-14] MEDS: DOXYCYCLINE INJECTION 100 MG in DEXTROSE 5%-WATER - 100 ML IVPB SCH ×2 (09:47→21:35)
[2019-01-14] MEDS: methylPREDNISolone NA SUCC 40 MG/1 ML VIAL IVPUSH SCH (09:47)
[2019-01-14] MEDS: DOCUSATE SODIUM 100 MG CAPSULE (FP) PO SCH ×2 (09:47→21:35)
[2019-01-14] MEDS: BACITRACIN 15 GM TUBE TOPICAL OINTMENT TP SCH (09:47)
[2019-01-14] MEDS: BUDESONIDE/FORMETEROL FUMARATE 160/4.5 mcg INHALER IH SCH ×2 (09:48→21:35)
[2019-01-14 10:10] LABS: ANTIGLOMERULAR BASEMENT MEN.AB 3 units (0-20)
[2019-01-14] MEDS: PANTOPRAZOLE 40 MG TABLET (FP) PO SCH (10:43)
--- NOTE | 2019-01-14 11:23 | PN ---
Progress Note (short form) - Note Progress Note: Resting in NAD on NC O2. Less SOB. Did not use NIPPV overnight. Intake & Output 01/11/19 01/12/19 01/13/19 01/14/19 23:59 23:59 23:59 23:59 Intake Total 620 1960 800 50 Output Total 1900 1999 Balance -1280 -40 800 50 Weight 152 lb 149 lb 8 oz 150 lb 6.4 oz 149 lb 12.8 oz Last Vital Signs Temp Pulse Resp BP Pulse Ox 97.5 F L 79 20 129/69 97 01/14/19 10:00 01/14/19 10:00 01/14/19 10:00 01/14/19 10:00 01/14/19 07:31 Active Medications Acetaminophen (Tylenol -) 650 mg PO Q6H PRN PRN Reason: PAIN LEVEL 1-5 Albuterol Sulfate (Ventolin 0.083% Nebulizer Soln -) 1 amp NEB Q4H PRN PRN Reason: SHORT OF BREATH/WHEEZING Albuterol/Ipratropium (Duoneb -) 1 amp NEB RQID [facility] Last Admin: 01/14/19 08:40 Dose: 1 amp Amlodipine Besylate (Norvasc -) 5 mg PO DAILY [facility] Last Admin: 01/14/19 09:47 Dose: 5 mg Bacitracin (Bacitracin -) 1 applic TP DAILY [facility] Last Admin: 01/14/19 09:47 Dose: 1 applic Budesonide/Formoterol Fumarate (Symbicort 160/4.5mcg -) 2 puff IH BID [facility] Last Admin: 01/14/19 09:48 Dose: 2 puff Docusate Sodium (Colace -) 100 mg PO BID [facility] Last Admin: 01/14/19 09:47 Dose: 100 mg Doxycycline Hyclate 100 mg/ (Dextrose) 100 mls @ 100 mls/hr IVPB BID [facility] Last Admin: 01/14/19 09:47 Dose: 100 mls/hr Levothyroxine Sodium (Synthroid -) 75 mcg PO DAILY@0700 [facility] Last Admin: 01/14/19 06:04 Dose: 75 mcg Methylprednisolone Sodium Succinate (Solu-Medrol -) 40 mg IVPUSH DAILY [facility] Last Admin: 01/14/19 09:47 Dose: 40 mg Pantoprazole Sodium (Protonix -) 40 mg PO DAILY [facility] Last Admin: 01/14/19 10:43 Dose: 40 mg Constitutional: Yes: NAD, thin Eyes: Yes: WNL HENT: Yes: WNL Neck: Yes: WNL Cardiovascular: Yes: Pulse Irregular, S1, S2 Respiratory: Yes: Scattered rhonchi Gastrointestinal: Yes: Normal Bowel Sounds, Soft Extremities: Yes: WNL Edema: Yes Labs: Laboratory Results - last 24 hr 01/10/19 01/12/19 01/12/19 13:02 05:30 05:30 WBC RBC Hgb Hct MCV MCH MCHC RDW Plt Count MPV Absolute Neuts (auto) Neutrophils % Lymphocytes % Monocytes % Eosinophils % Basophils % Nucleated RBC % Sodium Potassium Chloride Carbon Dioxide Anion Gap BUN Creatinine Est GFR (CKD-EPI)AfAm Est GFR (CKD-EPI)NonAf Random Glucose Calcium Phosphorus Magnesium Troponin I Total Protein (PEP) 5.7 L Albumin Albumin (PEP) 3.2 Globulin 2.5 Albumin/Globulin Ratio 1.3 Beta Globulins 0.8 LIDIA M-Ivan Not observed YVON Screen Double Strand DNA Ab Glomerular Base Memb Ab Free [place] LC, Quant 52.2 H Free L[place] LC, Quant 30.5 H Free [place]/Lambda Ratio 1.71 H Hep A IgM Ab Confirm Hepatitis A Ab Total Hep Bs Antigen Hep Bs Antibody Hep B Core Total Ab Blood Type B POSITIVE Antibody Screen Negative Crossmatch See Detail 01/12/19 01/14/19 01/14/19 05:30 06:25 06:25 WBC 7.2 RBC 3.30 L Hgb 9.2 L Hct 28.0 L MCV 84.8 MCH 27.9 MCHC 32.9 RDW 16.5 H Plt Count 288 MPV 8.4 D Absolute Neuts (auto) 5.4 Neutrophils % 75.1 Lymphocytes % 17.2 D Monocytes % 7.0 D Eosinophils % 0.4 D Basophils % 0.3 Nucleated RBC % 0 Sodium 142 Potassium 3.9 Chloride 105 Carbon Dioxide 30 Anion Gap 7 L BUN 41 H Creatinine 2.4 H Est GFR (CKD-EPI)AfAm 21.99 Est GFR (CKD-EPI)NonAf 18.97 Random Glucose 64 L Calcium 8.8 Phosphorus 3.8 Magnesium 2.5 H Troponin I 0.37 H Total Protein (PEP) Albumin Albumin (PEP) Globulin Albumin/Globulin Ratio Beta Globulins LIDIA M-Ivan YVON Screen Negative Double Strand DNA Ab <1 Glomerular Base Memb Ab 3 Free [place] LC, Quant Free [place] LC, Quant Free [place]/Lambda Ratio Hep A IgM Ab Confirm Negative Hepatitis A Ab Total Positive H Hep Bs Antigen Negative Hep Bs Antibody Non reactive Hep B Core Total Ab Negative Blood Type Antibody Screen Crossmatch 01/14/19 06:25 WBC RBC Hgb Hct MCV MCH MCHC RDW Plt Count MPV Absolute Neuts (auto) Neutrophils % Lymphocytes % Monocytes % Eosinophils % Basophils % Nucleated RBC % Sodium Potassium Chloride Carbon Dioxide Anion Gap BUN Creatinine Est GFR (CKD-EPI)AfAm Est GFR (CKD-EPI)NonAf Random Glucose Calcium Phosphorus Magnesium Troponin I Total Protein (PEP) Albumin 3.0 L Albumin (PEP) Globulin Albumin/Globulin Ratio Beta Globulins LIDIA M-Ivan YVON Screen Double Strand DNA Ab Glomerular Base Memb Ab Free [place] LC, Quant Free [place]ambda LC, Quant Free [place]/Lambda Ratio Hep A IgM Ab Confirm Hepatitis A Ab Total Hep Bs Antigen Hep Bs Antibody Hep B Core Total Ab Blood Type Antibody Screen Crossmatch Problem List - Problems (1) Anemia Code(s): D64.9 - ANEMIA, UNSPECIFIED Qualifiers: Anemia type: iron deficiency Iron deficiency anemia type: chronic blood loss Qualified Code(s): D50.0 - Iron deficiency anemia secondary to blood loss (chronic) (2) Pneumonia Code(s): J18.9 - PNEUMONIA, UNSPECIFIED ORGANISM (3) A-fib Code(s): I48.91 - UNSPECIFIED ATRIAL FIBRILLATION Qualifiers: Atrial fibrillation type: paroxysmal Qualified Code(s): I48.0 - Paroxysmal atrial fibrillation (4) Allergy to multiple antibiotics Code(s): Z88.1 - ALLERGY STATUS TO OTHER ANTIBIOTIC AGENTS STATUS (5) Asthma Code(s): J45.909 - UNSPECIFIED ASTHMA, UNCOMPLICATED (6) Breast mass, right Code(s): N63.10 - UNSPECIFIED LUMP IN THE RIGHT BREAST, UNSPECIFIED QUADRANT (7) CHF (congestive heart failure) Code(s): I50.9 - HEART FAILURE, UNSPECIFIED Qualifiers: Heart failure type: diastolic Heart failure chronicity: acute on chronic Qualified Code(s): I50.33 - Acute on chronic diastolic (congestive) heart failure (8) CKD (chronic kidney disease) Code(s): N18.9 - CHRONIC KIDNEY DISEASE, UNSPECIFIED Qualifiers: (9) Cough Code(s): R05 - COUGH (10) Diastolic dysfunction Code(s): I51.9 - HEART DISEASE, UNSPECIFIED (11) Dyspnea Code(s): R06.00 - DYSPNEA, UNSPECIFIED Qualifiers: Dyspnea type: shortness of breath Qualified Code(s): R06.02 - Shortness of breath; R06.00 - Dyspnea, unspecified; R06.01 - Orthopnea (12) Gout Code(s): M10.9 - GOUT, UNSPECIFIED (13) H/O malignant neoplasm of breast Code(s): Z85.3 - PERSONAL HISTORY OF MALIGNANT NEOPLASM OF BREAST (14) HTN (hypertension) Code(s): I10 - ESSENTIAL (PRIMARY) HYPERTENSION Qualifiers: Hypertension type: essential hypertension Qualified Code(s): I10 - Essential (primary) hypertension (15) Pleural effusion Code(s): J90 - PLEURAL EFFUSION, NOT ELSEWHERE CLASSIFIED Assessment/Plan ABX O2 as needed to maintain saturation BD TX PRN Medrol daily F/U chest ct 4- 6 weeks after discharge to confirm resolution of infiltrates normal transfusion threshold Noted that EGD may be performed, would reassess over the weekend for stability for procedure early next week Dr Ferrer Problem List - Problems (1) Anemia Code(s): D64.9 - ANEMIA, UNSPECIFIED Qualifiers: Anemia type: iron deficiency Iron deficiency anemia type: chronic blood loss Qualified Code(s): D50.0 - Iron deficiency anemia secondary to blood loss (chronic) (2) Pneumonia Code(s): J18.9 - PNEUMONIA, UNSPECIFIED ORGANISM (3) A-fib Code(s): I48.91 - UNSPECIFIED ATRIAL FIBRILLATION Qualifiers: Atrial fibrillation type: paroxysmal Qualified Code(s): I48.0 - Paroxysmal atrial fibrillation (4) Allergy to multiple antibiotics Code(s): Z88.1 - ALLERGY STATUS TO OTHER ANTIBIOTIC AGENTS STATUS (5) Asthma Code(s): J45.909 - UNSPECIFIED ASTHMA, UNCOMPLICATED (6) Breast mass, right Code(s): N63.10 - UNSPECIFIED LUMP IN THE RIGHT BREAST, UNSPECIFIED QUADRANT (7) CHF (congestive heart failure) Code(s): I50.9 - HEART FAILURE, UNSPECIFIED Qualifiers: Heart failure type: diastolic Heart failure chronicity: acute on chronic Qualified Code(s): I50.33 - Acute on chronic diastolic (congestive) heart failure (8) CKD (chronic kidney disease) Code(s): N18.9 - CHRONIC KIDNEY DISEASE, UNSPECIFIED Qualifiers: (9) Cough Code(s): R05 - COUGH (10) Diastolic dysfunction Code(s): I51.9 - HEART DISEASE, UNSPECIFIED (11) Dyspnea Code(s): R06.00 - DYSPNEA, UNSPECIFIED Qualifiers: Dyspnea type: shortness of breath Qualified Code(s): R06.02 - Shortness of breath; R06.00 - Dyspnea, unspecified; R06.01 - Orthopnea (12) Gout Code(s): M10.9 - GOUT, UNSPECIFIED (13) H/O malignant neoplasm of breast Code(s): Z85.3 - PERSONAL HISTORY OF MALIGNANT NEOPLASM OF BREAST (14) HTN (hypertension) Code(s): I10 - ESSENTIAL (PRIMARY) HYPERTENSION Qualifiers: Hypertension type: essential hypertension Qualified Code(s): I10 - Essential (primary) hypertension (15) Pleural effusion Code(s): J90 - PLEURAL EFFUSION, NOT ELSEWHERE CLASSIFIED
--- NOTE | 2019-01-14 11:36 | PN ---
Progress Note (short form) - Note Progress Note: Advised by primary team that patient willing to undrgo EGD. Read pulmonary note from today. Advised reevaluation of respiratory status over the weekend for procedure tentatively for early next week. Will place on schedule tentatively for Thursday 01/18. Problem List - Problems (1) Anemia Code(s): D64.9 - ANEMIA, UNSPECIFIED Qualifiers: Anemia type: iron deficiency Iron deficiency anemia type: chronic blood loss Qualified Code(s): D50.0 - Iron deficiency anemia secondary to blood loss (chronic)
--- NOTE | 2019-01-14 11:54 | PN ---
Physical Exam: SUBJECTIVE: Patient seen and examined at bedside. Continues to feel better. Did not use bipap over night and used NC oxygen last night and was able to rest comfortably with good O2 sats. OBJECTIVE: Vital Signs Temperature 97.5 F L 01/14/19 10:00 Pulse Rate 79 01/14/19 10:00 Respiratory Rate 20 01/14/19 10:00 Blood Pressure 129/69 01/14/19 10:00 O2 Sat by Pulse Oximetry (%) 97 01/14/19 07:31 GENERAL: The patient is awake, alert, and fully oriented, in no acute distress. On nasal cannula. HEAD: Normal with no signs of trauma. ENT: Ears normal, nares patent LUNGS: b/l mild wheezing HEART: Regular rate and rhythm, S1, S2 ABDOMEN: Soft, nontender, nondistended, normoactive bowel sounds. Large ventral hernia. EXTREMITIES: warm, well-perfused, no edema. NEUROLOGICAL: Cranial nerves II through XII grossly intact. Normal speech, gait not observed. PSYCH: Normal mood, normal affect. SKIN: Warm, dry Laboratory Results - last 24 hr 01/10/19 01/12/19 01/12/19 13:02 05:30 05:30 WBC RBC Hgb Hct MCV MCH MCHC RDW Plt Count MPV Absolute Neuts (auto) Neutrophils % Lymphocytes % Monocytes % Eosinophils % Basophils % Nucleated RBC % Sodium Potassium Chloride Carbon Dioxide Anion Gap BUN Creatinine Est GFR (CKD-EPI)AfAm Est GFR (CKD-EPI)NonAf Random Glucose Calcium Phosphorus Magnesium Troponin I Total Protein (PEP) 5.7 L Albumin Albumin (PEP) 3.2 Globulin 2.5 Albumin/Globulin Ratio 1.3 Beta Globulins 0.8 LIDIA M-Ivan Not observed YVON Screen Double Strand DNA Ab Glomerular Base Memb Ab Free [place] LC, Quant 52.2 H Free Lambda LC, Quant 30.5 H Free [place]/Lambda Ratio 1.71 H Hep A IgM Ab Confirm Hepatitis A Ab Total Hep Bs Antigen Hep Bs Antibody Hep B Core Total Ab HCV Quantitation HCV RNA log copies/mL Blood Type B POSITIVE Antibody Screen Negative Crossmatch See Detail 01/12/19 01/14/19 01/14/19 05:30 06:25 06:25 WBC 7.2 RBC 3.30 L Hgb 9.2 L Hct 28.0 L MCV 84.8 MCH 27.9 MCHC 32.9 RDW 16.5 H Plt Count 288 MPV 8.4 D Absolute Neuts (auto) 5.4 Neutrophils % 75.1 Lymphocytes % 17.2 D Monocytes % 7.0 D Eosinophils % 0.4 D Basophils % 0.3 Nucleated RBC % 0 Sodium 142 Potassium 3.9 Chloride 105 Carbon Dioxide 30 Anion Gap 7 L BUN 41 H Creatinine 2.4 H Est GFR (CKD-EPI)AfAm 21.99 Est GFR (CKD-EPI)NonAf 18.97 Random Glucose 64 L Calcium 8.8 Phosphorus 3.8 Magnesium 2.5 H Troponin I 0.37 H Total Protein (PEP) Albumin Albumin (PEP) Globulin Albumin/Globulin Ratio Beta Globulins LIDIA M-Ivan YVON Screen Negative Double Strand DNA Ab <1 Glomerular Base Memb Ab 3 Free [place] LC, Quant Free Lambda LC, Quant Free [place]/Lambda Ratio Hep A IgM Ab Confirm Negative Hepatitis A Ab Total Positive H Hep Bs Antigen Negative Hep Bs Antibody Non reactive Hep B Core Total Ab Negative HCV Quantitation Hcv not detected HCV RNA log copies/mL TNP Blood Type Antibody Screen Crossmatch 01/14/19 06:25 WBC RBC Hgb Hct MCV MCH MCHC RDW Plt Count MPV Absolute Neuts (auto) Neutrophils % Lymphocytes % Monocytes % Eosinophils % Basophils % Nucleated RBC % Sodium Potassium Chloride Carbon Dioxide Anion Gap BUN Creatinine Est GFR (CKD-EPI)AfAm Est GFR (CKD-EPI)NonAf Random Glucose Calcium Phosphorus Magnesium Troponin I Total Protein (PEP) Albumin 3.0 L Albumin (PEP) Globulin Albumin/Globulin Ratio Beta Globulins LIDIA M-Ivan YVON Screen Double Strand DNA Ab Glomerular Base Memb Ab Free [place] LC, Quant Free [place]ambda LC, Quant Free [place]/Lambda Ratio Hep A IgM Ab Confirm Hepatitis A Ab Total Hep Bs Antigen Hep Bs Antibody Hep B Core Total Ab HCV Quantitation HCV RNA log copies/mL Blood Type Antibody Screen Crossmatch Active Medications Generic Name Dose Route Start Last Admin Trade Name Freq PRN Reason Stop Dose Admin Acetaminophen 650 mg 01/10/19 16:07 Tylenol - PO Q6H PRN PAIN LEVEL 1-5 Albuterol Sulfate 1 amp 01/10/19 16:08 Ventolin 0.083% Nebulizer Soln - NEB Q4H PRN SHORT OF BREATH/WHEEZING Albuterol/Ipratropium 1 amp 01/10/19 20:00 01/14/19 08:40 Duoneb - NEB 1 amp RQID KASSIDY Administration Amlodipine Besylate 5 mg 01/14/19 10:00 01/14/19 09:47 Norvasc - PO 5 mg DAILY KASSIDY Administration Bacitracin 1 applic 01/11/19 10:00 01/14/19 09:47 Bacitracin - TP 1 applic DAILY KASSIDY Administration Budesonide/Formoterol Fumarate 2 puff 01/10/19 22:00 01/14/19 09:48 Symbicort 160/4.5mcg - IH 2 puff BID KASSIDY Administration Docusate Sodium 100 mg 01/10/19 22:00 01/14/19 09:47 Colace - PO 100 mg BID KASSIDY Administration Doxycycline Hyclate 100 mg/ 100 mls @ 100 mls/hr 01/11/19 10:00 01/14/19 09: 47 Dextrose IVPB 100 mls/hr BID KASSIDY Administration Levothyroxine Sodium 75 mcg 01/11/19 07:00 01/14/19 06:04 Synthroid - PO 75 mcg DAILY@0700 KASSIDY Administration Methylprednisolone Sodium Succinate 40 mg 01/11/19 14:00 01/14/19 09:47 Solu-Medrol - IVPUSH 40 mg DAILY KASSIDY Administration Pantoprazole Sodium 40 mg 01/14/19 10:15 01/14/19 10:43 Protonix - PO 40 mg DAILY KASSIDY Administration ASSESSMENT/PLAN: 78 y/o F w/PMH of invasive ductal R breast ca (dx'd 10 years ago, recently declined chemo/RT), COPD (on 2L home O2), dCHF, CAD, HTN, HLD, CVA (w/no residual deficits), hypothyroidism, gout, recent LLL Pna with pleural effusion s /p thoracentesis (09/2018) admitted for SOB, anemia (requiring transfusion), FOBT +, and PATY on CKD. -SOB (acute on chronic hypoxic respiratory failure) -secondary to possible pna vs acute on chronic chf exacerbation superimposed with anemia and COPD exacerbation -Anemia -FOBT+, GI following, 3 units PRBC so far this admission -transfuse to keep Hgb >8 -Hgb sable today, changed to PO protonix 40 mg daily today. -EGD tentatively on Friday pending respiratory status as per GI. -acute on chronic CHF exacerbation -improved. on nasal cannula. -monitor i/os, daily weights -PNA -doxy for 5-7 days -f/u BCx -COPD exacerbation -Pulm following -Duo-neb QID, alb nebs PRN, symbicort, bipap PRN, O2 supp to keep saturation above 90% (on home O2 at 2L) -solu-medrol 40 mg IVP qd -steroid taper as per pulm -CT C/A/P: lingular consolidation/atelectasis, small b/l pleural effusions w/ bibasilar atelectasis, mod renal atrophy R>L, large ventral hernia anterior abdominal wall. -F/u CT chest in 4-6 weeks after discharge -Hypothyroidism -c/w synthroid 75mcg qAM -PATY on CKD -Cr 2.9, continue to monitor -Nephrology following -avoid nephrotoxic agents -Hx of breast ca -Palliative consult as pt does not want treatment -Elevated trop -Likely demand, will monitor. No chest pain. -Afib -Hold AC with anemia -Echo noted, mostly unremarkable -HTN -restart norvasc 10mg qd if hypertensive -LLE wound -wound care. LLE duplex US negative for DVT -DVT ppx -SCDs -FEN -No fluids -Monitor electrolytes -Clear liquid diet -Dispo: Monitor on tele -Code Status: DNR/DNI Visit type - Emergency Visit Emergency Visit: Yes ED Registration Date: 01/10/19 Care time: The patient presented to the Emergency Department on the above date and was hospitalized for further evaluation of their emergent condition. - New Patient This patient is new to me today: No - Critical Care Critical Care patient: No
--- NOTE | 2019-01-14 13:49 | PN ---
Physical Exam: SUBJECTIVE: Patient seen and examined resting in bed, nad. no acute events, afebrile hemodynamically stable. denies h/ a, change in vision, difficulty swallowing, bleeding. now recalls an episode of melena in the past OBJECTIVE: Vital Signs Period Temp Pulse Resp BP Sys/[place] Pulse Ox Last 24 Hr 97.5 F-98.4 F 79-108 20-20 123-148/68-91 93-97 GENERAL: Awake, alert, slightly confused, somnolent, in no acute distress. HEAD: Normal with no signs of trauma. EYES: extraocular movements intact, sclera anicteric, conjunctiva clear. No lid lag. EARS, NOSE, THROAT: Moist mucous membranes. NECK: supple without lymphadenopathy LUNGS: diffuse ronchi and wheezing HEART: Regular rate and rhythm, normal S1 and S2 ABDOMEN: Soft, nontender, not distended, normoactive bowel sounds, no guarding, no rebound, no masses. MUSCULOSKELETAL: No CVA tenderness. UPPER EXTREMITIES: 2+ pulses, warm, well-perfused. No peripheral edema. LOWER EXTREMITIES: warm, well-perfused. No calf tenderness. No peripheral edema. NEUROLOGICAL: Cranial nerves II-XII grossly intact. Normal speech. PSYCHIATRIC: Cooperative. Good eye contact. Appropriate mood and affect. SKIN: Warm, dry Laboratory Results - last 24 hr 01/10/19 01/12/19 01/12/19 13:02 05:30 05:30 WBC RBC Hgb Hct MCV MCH MCHC RDW Plt Count MPV Absolute Neuts (auto) Neutrophils % Lymphocytes % Monocytes % Eosinophils % Basophils % Nucleated RBC % Sodium Potassium Chloride Carbon Dioxide Anion Gap BUN Creatinine Est GFR (CKD-EPI)AfAm Est GFR (CKD-EPI)NonAf Random Glucose Calcium Phosphorus Magnesium Troponin I Total Protein (PEP) 5.7 L Albumin Albumin (PEP) 3.2 Globulin 2.5 Albumin/Globulin Ratio 1.3 Beta Globulins 0.8 ILDIA M-Iavn Not observed YVON Screen Double Strand DNA Ab Glomerular Base Memb Ab Free [place] LC, Quant 52.2 H Free Lambda LC, Quant 30.5 H Free [place]/Lambda Ratio 1.71 H Hep A IgM Ab Confirm Hepatitis A Ab Total Hep Bs Antigen Hep Bs Antibody Hep B Core Total Ab HCV Quantitation HCV RNA log copies/mL Blood Type B POSITIVE Antibody Screen Negative Crossmatch See Detail 01/12/19 01/14/1901/14/19 05:30 06:25 06:25 WBC 7.2 RBC 3.30 L Hgb 9.2 L Hct 28.0 L MCV 84.8 MCH 27.9 MCHC 32.9 RDW 16.5 H Plt Count 288 MPV 8.4 D Absolute Neuts (auto) 5.4 Neutrophils % 75.1 Lymphocytes % 17.2 D Monocytes % 7.0 D Eosinophils % 0.4 D Basophils % 0.3 Nucleated RBC % 0 Sodium 142 Potassium 3.9 Chloride 105 Carbon Dioxide 30 Anion Gap 7 L BUN 41 H Creatinine 2.4 H Est GFR (CKD-EPI)AfAm 21.99 Est GFR (CKD-EPI)NonAf 18.97 Random Glucose 64 L Calcium 8.8 Phosphorus 3.8 Magnesium 2.5 H Troponin I 0.37 H Total Protein (PEP) Albumin Albumin (PEP) Globulin Albumin/Globulin Ratio Beta Globulins LIDIA M-Ivan YVON Screen Negative Double Strand DNA Ab <1 Glomerular Base Memb Ab 3 Free [place] LC, Quant Free Lambda LC, Quant Free [place]/Lambda Ratio Hep A IgM Ab Confirm Negative Hepatitis A Ab Total Positive H Hep Bs Antigen Negative Hep Bs Antibody Non reactive Hep B Core Total Ab Negative HCV Quantitation Hcv not detected HCV RNA log copies/mL TNP Blood Type Antibody Screen Crossmatch 01/14/19 06:25 WBC RBC Hgb Hct MCV MCH MCHC RDW Plt Count MPV Absolute Neuts (auto) Neutrophils % Lymphocytes % Monocytes % Eosinophils % Basophils % Nucleated RBC % Sodium Potassium Chloride Carbon Dioxide Anion Gap BUN Creatinine Est GFR (CKD-EPI)AfAm Est GFR (CKD-EPI)NonAf Random Glucose Calcium Phosphorus Magnesium Troponin I Total Protein (PEP) Albumin 3.0 L Albumin (PEP) Globulin Albumin/Globulin Ratio Beta Globulins LIDIA M-Ivan YVON Screen Double Strand DNA Ab Glomerular Base Memb Ab Free [place] LC, Quant Free Lambda LC, Quant Free [place]/Lambda Ratio Hep A IgM Ab Confirm Hepatitis A Ab Total Hep Bs Antigen Hep Bs Antibody Hep B Core Total Ab HCV Quantitation HCV RNA log copies/mL Blood Type Antibody Screen Crossmatch Active Medications Generic Name Dose Route Start Last Admin Trade Name Freq PRN Reason Stop Dose Admin Acetaminophen 650 mg 01/10/19 16:07 Tylenol - PO Q6H PRN PAIN LEVEL 1-5 Albuterol Sulfate 1 amp 01/10/19 16:08 Ventolin 0.083% Nebulizer Soln - NEB Q4H PRN SHORT OF BREATH/WHEEZING Albuterol/Ipratropium 1 amp 01/10/19 20:00 01/14/19 08:40 Duoneb - NEB 1 amp RQID KASSIDY Administration Amlodipine Besylate 5 mg 01/14/19 10:00 01/14/19 09:47 Norvasc - PO 5 mg DAILY KASSIDY Administration Bacitracin 1 applic 01/11/19 10:00 01/14/19 09:47 Bacitracin - TP 1 applic DAILY KASSIDY Administration Budesonide/Formoterol Fumarate 2 puff 01/10/19 22:00 01/14/19 09:48 Symbicort 160/4.5mcg - IH 2 puff BID KASSIDY Administration Docusate Sodium 100 mg 01/10/19 22:00 01/14/19 09:47 Colace - PO 100 mg BID KASSIDY Administration Doxycycline Hyclate 100 mg/ 100 mls @ 100 mls/hr 01/11/19 10:00 01/14/19 09: 47 Dextrose IVPB 100 mls/hr BID KASSIDY Administration Levothyroxine Sodium 75 mcg 01/11/19 07:00 01/14/19 06:04 Synthroid - PO 75 mcg DAILY@0700 KASSIDY Administration Methylprednisolone Sodium Succinate 40 mg 01/11/19 14:00 01/14/19 09:47 Solu-Medrol - IVPUSH 40 mg DAILY KASSIDY Administration Pantoprazole Sodium 40 mg 01/14/19 10:15 01/14/19 10:43 Protonix - PO 40 mg DAILY KASSIDY Administration ASSESSMENT/PLAN: This is a 78 yo f with PMH of invasive ductal R breast ca (dx 10 years ago, recently worked up again, when reported declined chemoradiation), COPD on 2 L home oxygen, LLL PNA with pleural effusion s/p thoracocentesis transudative (2018),HFPEF, CAD (not reported PCI or intervention), HTN, HLD, CVA with no residual deficits hypothyroidism, gout, who presented with worsening sob and cough with blood tinged sputum x 4 d. invasive ductal R breast ca severe symtomatic anemia acute on chronic hypoxic respirtory failure copd on home o2 LLL effusion CAD HFPEF HTN HLD CHF -breast biopsy done november 17 revealed IDC moderately differentiated ER -100% Her 2 negative, NH -100%, Ki67<10% -should have been on anastrozole for about a month and a half; she does not remember which medication she took; started anastrozole -continue transfusion prbcs, trend h/h -K/L ratio el;evated 1.71 -hapto elevated, retic 2.84, Fe low could benefit from supplementation -gi planning EGD once respiratory status is more stable, likely next week
[2019-01-14] MEDS ORDERED: FUROSEMIDE 40 MG TABLET (FP) PO ONE (15:52)
--- NOTE | 2019-01-14 15:52 | PN ---
Progress Note, Physician History of Present Illness: Pt seen and examined at bedside. She is awake and alert. She feels that her breathing is improved. She complains of lower ext edema. - Current Medication List Current Medications: Active Medications Acetaminophen (Tylenol -) 650 mg PO Q6H PRN PRN Reason: PAIN LEVEL 1-5 Albuterol Sulfate (Ventolin 0.083% Nebulizer Soln -) 1 amp NEB Q4H PRN PRN Reason: SHORT OF BREATH/WHEEZING Albuterol/Ipratropium (Duoneb -) 1 amp NEB RQID [facility] Last Admin: 01/14/19 08:40 Dose: 1 amp Amlodipine Besylate (Norvasc -) 5 mg PO DAILY [facility] Last Admin: 01/14/19 09:47 Dose: 5 mg Bacitracin (Bacitracin -) 1 applic TP DAILY [facility] Last Admin: 01/14/19 09:47 Dose: 1 applic Budesonide/Formoterol Fumarate (Symbicort 160/4.5mcg -) 2 puff IH BID [facility] Last Admin: 01/14/19 09:48 Dose: 2 puff Docusate Sodium (Colace -) 100 mg PO BID [facility] Last Admin: 01/14/19 09:47 Dose: 100 mg Doxycycline Hyclate 100 mg/ (Dextrose) 100 mls @ 100 mls/hr IVPB BID [facility] Last Admin: 01/14/19 09:47 Dose: 100 mls/hr Levothyroxine Sodium (Synthroid -) 75 mcg PO DAILY@0700 [facility] Last Admin: 01/14/19 06:04 Dose: 75 mcg Methylprednisolone Sodium Succinate (Solu-Medrol -) 40 mg IVPUSH DAILY [facility] Last Admin: 01/14/19 09:47 Dose: 40 mg Pantoprazole Sodium (Protonix -) 40 mg PO DAILY [facility] Last Admin: 01/14/19 10:43 Dose: 40 mg - Objective Vital Signs: Vital Signs Temperature 98.4 F 01/14/19 15:00 Pulse Rate 68 01/14/19 15:00 Respiratory Rate 20 01/14/19 15:00 Blood Pressure 139/84 01/14/19 15:00 O2 Sat by Pulse Oximetry (%) 97 01/14/19 07:31 Constitutional: Yes: Calm Eyes: Yes: Conjunctiva Clear HENT: Yes: Atraumatic Neck: Yes: Supple Cardiovascular: Yes: S1, S2 Respiratory: Yes: Diminished, On Nasal O2 Gastrointestinal: Yes: Normal Bowel Sounds, Soft Genitourinary: Yes: WNL Musculoskeletal: Yes: WNL Edema: Yes Edema: LLE: 1+, RLE: 1+ Neurological: Yes: Oriented Psychiatric: Yes: Oriented Labs: CBC, BMP 01/14/19 06:25 01/14/19 06:25 INR, PTT INR 0.97 (0.83-1.09) 01/10/19 13:02 Problem List - Problems (1) Anemia Code(s): D64.9 - ANEMIA, UNSPECIFIED Qualifiers: Anemia type: iron deficiency Iron deficiency anemia type: chronic blood loss Qualified Code(s): D50.0 - Iron deficiency anemia secondary to blood loss (chronic) (2) CKD (chronic kidney disease) Code(s): N18.9 - CHRONIC KIDNEY DISEASE, UNSPECIFIED Qualifiers: Assessment/Plan Current Medications Generic Name Dose Route Start Last Admin Trade Name Freq PRN Reason Stop Dose Admin Acetaminophen 650 mg 01/10/19 16:07 Tylenol - PO Q6H PRN PAIN LEVEL 1-5 Albuterol Sulfate 1 amp 01/10/19 16:08 Ventolin 0.083% Nebulizer Soln - NEB Q4H PRN SHORT OF BREATH/WHEEZING Albuterol/Ipratropium 1 amp 01/10/19 20:00 01/14/19 08:40 Duoneb - NEB 1 amp RQID [facility] Administration Amlodipine Besylate 5 mg 01/14/19 10:00 01/14/19 09:47 Norvasc - PO 5 mg DAILY [facility] Administration Bacitracin 1 applic 01/11/19 10:00 01/14/19 09:47 Bacitracin - TP 1 applic DAILY [facility] Administration Budesonide/Formoterol Fumarate 2 puff 01/10/19 22:00 01/14/19 09:48 Symbicort 160/4.5mcg - IH 2 puff BID [facility] Administration Docusate Sodium 100 mg 01/10/19 22:00 01/14/19 09:47 Colace - PO 100 mg BID [facility] Administration Doxycycline Hyclate 100 mg/ 100 mls @ 100 mls/hr 01/11/19 10:00 01/14/19 09: 47 Dextrose IVPB 100 mls/hr BID [facility] Administration Levothyroxine Sodium 75 mcg 01/11/19 07:00 01/14/19 06:04 Synthroid - PO 75 mcg DAILY@0700 [facility] Administration Methylprednisolone Sodium Succinate 40 mg 01/11/19 14:00 01/14/19 09:47 Solu-Medrol - IVPUSH 40 mg DAILY [facility] Administration Pantoprazole Sodium 40 mg 01/14/19 10:15 01/14/19 10:43 Protonix - PO 40 mg DAILY [facility] Administration Impression 1. CKD 2. hypothyroidism 3. breast cancer 4. pleural effusion 5. gout 6. asthma 7. liver disease 8. copd 9. asthma 10. a-fib 11. PATY 12. anemia Plan - renal function improving - will give a dose of lasix - repeat labs in am - monitor hg - volume status is improving - avoid nsaids
[2019-01-14 16:24] LABS: ATYPICAL pANCA <1:20 titer (Neg:<1:20); C-ANCA <1:20 titer (Neg:<1:20); P-ANCA <1:20 titer (Neg:<1:20)
--- NOTE | 2019-01-14 17:39 | PN ---
Teaching Attending Note Name of Resident: Sukhdeep Ely ATTENDING PHYSICIAN STATEMENT I saw and evaluated the patient. I reviewed the resident's note and discussed the case with the resident. I agree with the resident's findings and plan as documented. SUBJECTIVE: Ms Taylor is without complaint. Denies cp, sob, n/v OBJECTIVE: Last Vital Signs Temp Pulse Resp BP Pulse Ox 36.9 C 68 20 139/84 97 01/14/19 15:00 01/14/19 15:00 01/14/19 15:00 01/14/19 15:00 01/14/19 07:31 Gen: nad Pulm: slight wheezing in all boss CV: rrr w/o m/r/g Abd: +bs, s/nt/nd Ext: no c/c/e ASSESSMENT AND PLAN: (1) GIB (gastrointestinal bleeding) Assessment/Plan: -GI following -patient agreeing to EGD -planned for Friday -continue protonix Code(s): K92.2 - GASTROINTESTINAL HEMORRHAGE, UNSPECIFIED (2) Pneumonia Assessment/Plan: -continue empiric doxycycline Code(s): J18.9 - PNEUMONIA, UNSPECIFIED ORGANISM (3) Acute exacerbation of chronic obstructive airways disease Assessment/Plan: -appreciate pulmonary assistance -continue steroids and bronchodilators' -solumedrol decreased to 40mg daily Code(s): J44.1 - CHRONIC OBSTRUCTIVE PULMONARY DISEASE W (ACUTE) EXACERBATION (4) CHF (congestive heart failure) Assessment/Plan: -diuretic per cardiology Code(s): I50.9 - HEART FAILURE, UNSPECIFIED Qualifiers: Heart failure type: diastolic Heart failure chronicity: acute on chronic Qualified Code(s): I50.33 - Acute on chronic diastolic (congestive) heart failure (5) HTN (hypertension) Assessment/Plan: -controlled Code(s): I10 - ESSENTIAL (PRIMARY) HYPERTENSION Qualifiers: Hypertension type: essential hypertension Qualified Code(s): I10 - Essential (primary) hypertension (6) H/O malignant neoplasm of breast Assessment/Plan: -noted Code(s): Z85.3 - PERSONAL HISTORY OF MALIGNANT NEOPLASM OF BREAST (7) CKD (chronic kidney disease) Assessment/Plan: -improving Code(s): N18.9 - CHRONIC KIDNEY DISEASE, UNSPECIFIED Qualifiers: Problem List - Problems (1) GIB (gastrointestinal bleeding) Code(s): K92.2 - GASTROINTESTINAL HEMORRHAGE, UNSPECIFIED (2) Pneumonia Code(s): J18.9 - PNEUMONIA, UNSPECIFIED ORGANISM (3) Acute exacerbation of chronic obstructive airways disease Code(s): J44.1 - CHRONIC OBSTRUCTIVE PULMONARY DISEASE W (ACUTE) EXACERBATION (4) CHF (congestive heart failure) Code(s): I50.9 - HEART FAILURE, UNSPECIFIED Qualifiers: Heart failure type: diastolic Heart failure chronicity: acute on chronic Qualified Code(s): I50.33 - Acute on chronic diastolic (congestive) heart failure (5) HTN (hypertension) Code(s): I10 - ESSENTIAL (PRIMARY) HYPERTENSION Qualifiers: Hypertension type: essential hypertension Qualified Code(s): I10 - Essential (primary) hypertension (6) H/O malignant neoplasm of breast Code(s): Z85.3 - PERSONAL HISTORY OF MALIGNANT NEOPLASM OF BREAST (7) CKD (chronic kidney disease) Code(s): N18.9 - CHRONIC KIDNEY DISEASE, UNSPECIFIED Qualifiers:
[2019-01-14] MEDS ORDERED: IRON SUCROSE INJECTION 100 MG in SODIUM CHLORIDE 95 ML IVPB ONE (17:43)
--- NOTE | 2019-01-14 23:09 | PN ---
Progress Note (short form) - Note Progress Note: Patient seen and examined feels better afvss Cor: RSR, No murmurs, No gallops Lungs: Clear to P&A Abd: Soft, Normal bowel sounds, No organomegaly Ext:No significant edema labs/meds reviewed a/p 78 F,recent admission and workup for a pleural effusion s/p thoracentesis found to be transudative. Additional history of breast CA (10 years ago), COPD, anemia, HTN, hypothyroidism, dementia, and gout. Admitted via the ER due to worsening shortness of breath and orthopnea. Reports a non-productive cough. CT: lingular consolidation / small pleural effusions / 1.[address] Also found to be severely anemic, Hgb 5-6, getting transfused. GI consulted Markedly elevated BNP Ongoing GI w/u h/o breast mass for several yrs., patient had refused biopsies and treatment. 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 differentiated,ER-100%, GA-100%, Her2 -, Ki67 <10% Patient was started on AI and PET-CT ordered Patient reports taking the AI but does not recall which one. Will resume AI
[2019-01-15] MEDS: LEVOTHYROXINE NA 75 MCG TABLET (FP) PO SCH (06:12)
[2019-01-15 06:37] LABS: HEMATOCRIT 29.5 % (32.4-45.2); HEMOGLOBIN 9.7 GM/dL (10.7-15.3); MEAN CELL VOLUME 84.8 fl (80-96); MEAN PLT VOLUME 9.6 fl (7.5-11.1); PLATELET COUNT 322 K/MM3 (134-434); RBC 3.48 M/mm3 (3.60-5.2); WHITE BLOOD COUNT 6.5 K/mm3 (4.0-10.0)
[2019-01-15 06:56] LABS: CALCIUM 8.7 mg/dL (8.5-10.1); CREATININE 2.3 mg/dL (0.55-1.3); MAGNESIUM 2.1 mg/dL (1.8-2.4); POTASSIUM 3.7 mmol/L (3.5-5.1)
[2019-01-15] MEDS: ALBUTEROL SO4 2.5/IPRATROPIUM 0.5 INH SOL 3 ML VIAL.NEB. NEB SCH ×3 (07:25→15:33)
[2019-01-15] MEDS ORDERED: PT OWN MED DRAWER 7, Y5N ONE ×2 (09:48→20:53)
[2019-01-15] MEDS: DOXYCYCLINE INJECTION 100 MG in DEXTROSE 5%-WATER - 100 ML IVPB SCH ×2 (10:05→21:25)
[2019-01-15] MEDS: DOCUSATE SODIUM 100 MG CAPSULE (FP) PO SCH ×2 (10:05→21:23)
[2019-01-15] MEDS: amLODIPine BESYLATE 5 MG TABLET (FP) PO SCH (10:05)
[2019-01-15] MEDS: PANTOPRAZOLE 40 MG TABLET (FP) PO SCH (10:06)
[2019-01-15] MEDS: methylPREDNISolone NA SUCC 40 MG/1 ML VIAL IVPUSH SCH (10:06)
[2019-01-15] MEDS: BACITRACIN 15 GM TUBE TOPICAL OINTMENT TP SCH (10:08)
[2019-01-15] MEDS: BUDESONIDE/FORMETEROL FUMARATE 160/4.5 mcg INHALER IH SCH ×2 (10:08→21:23)
--- NOTE | 2019-01-15 10:35 | PN.GI ---
GI Progress Note Subjective: No acute events On NC O2 now States breathing "a little better" - Objective Vital Signs: Vital Signs Temperature 98.1 F 01/15/19 09:37 Pulse Rate 91 H 01/15/19 09:37 Respiratory Rate 20 01/15/19 09:37 Blood Pressure 159/70 01/15/19 09:37 O2 Sat by Pulse Oximetry (%) 100 01/14/19 20:28 Constitutional: Calm Eyes: No: Sclera Icterus Cardiovascular: Yes: Regular Rate and Rhythm Respiratory: Yes: Wheezes (Mild exp wheezes b/l) ...Auscultate: Yes: Normoactive Bowel Sounds ...Palpate: Yes: Soft. No: Tenderness Edema: No Neurological: Yes: Alert Labs: CBC, BMP 01/15/19 05:30 01/15/19 05:30 INR, PTT INR 0.97 (0.83-1.09) 01/10/19 13:02 Hepatic Panel Total Bilirubin 0.1 mg/dL (0.2-1) L 01/11/19 05:30 AST 18 U/L (15-37) 01/11/19 05:30 ALT 10 U/L (13-61) L 01/11/19 05:30 Alkaline Phosphatase 47 U/L (45-117) 01/11/19 05:30 Albumin 3.0 g/dl (3.4-5.0) L 01/14/19 06:25 Problem List - Problems (1) Anemia Assessment/Plan: With h/o melena. Ms. Taylor rethough things yesterday and was amenable to having EGD performed. Per Pulmonary's note yesterday, advised observing over weekend and plan for the EGD early next week. No overt bleeding and Hgb improved Plan for EGD t 01/18. Reviewed potential risks of the procedure with Ms. Taylor like but not limited to bleeding, perofration requiring surgery to repair , infection, sedation medication effects all of which could be potentially life threatening. She has agreed to the procedure. If unrevealing in terms of source of anemia and occult blood in stool and depending on how she tolerates sedation, she was agreeable to having colonoscopy friday 01/19 to exclude source of bleeding such as bleeding blood vessel, polyp, colon cancer. Code(s): D64.9 - ANEMIA, UNSPECIFIED Qualifiers: Anemia type: iron deficiency Iron deficiency anemia type: chronic blood loss Qualified Code(s): D50.0 - Iron deficiency anemia secondary to blood loss (chronic)
--- NOTE | 2019-01-15 13:56 | PN ---
Progress Note, Physician History of Present Illness: Pt seen and examined at bedside. She is awake and alert. She denies shortness of breath. - Current Medication List Current Medications: Active Medications Acetaminophen (Tylenol -) 650 mg PO Q6H PRN PRN Reason: PAIN LEVEL 1-5 Albuterol Sulfate (Ventolin 0.083% Nebulizer Soln -) 1 amp NEB Q4H PRN PRN Reason: SHORT OF BREATH/WHEEZING Albuterol/Ipratropium (Duoneb -) 1 amp NEB RQID [facility] Last Admin: 01/15/19 11:23 Dose: 1 amp Amlodipine Besylate (Norvasc -) 5 mg PO DAILY [facility] Last Admin: 01/15/19 10:05 Dose: 5 mg Bacitracin (Bacitracin -) 1 applic TP DAILY [facility] Last Admin: 01/15/19 10:08 Dose: 1 applic Budesonide/Formoterol Fumarate (Symbicort 160/4.5mcg -) 2 puff IH BID [facility] Last Admin: 01/15/19 10:08 Dose: 2 puff Docusate Sodium (Colace -) 100 mg PO BID [facility] Last Admin: 01/15/19 10:05 Dose: 100 mg Doxycycline Hyclate 100 mg/ (Dextrose) 100 mls @ 100 mls/hr IVPB BID [facility] Last Admin: 01/15/19 10:05 Dose: 100 mls/hr Levothyroxine Sodium (Synthroid -) 75 mcg PO DAILY@0700 [facility] Last Admin: 01/15/19 06:12 Dose: 75 mcg Methylprednisolone Sodium Succinate (Solu-Medrol -) 40 mg IVPUSH DAILY [facility] Last Admin: 01/15/19 10:06 Dose: 40 mg Pantoprazole Sodium (Protonix -) 40 mg PO DAILY [facility] Last Admin: 01/15/19 10:06 Dose: 40 mg - Objective Vital Signs: Vital Signs Temperature 98.1 F 01/15/19 09:37 Pulse Rate 91 H 01/15/19 09:37 Respiratory Rate 20 01/15/19 09:37 Blood Pressure 159/70 01/15/19 09:37 O2 Sat by Pulse Oximetry (%) 100 01/15/19 09:00 Constitutional: Yes: Calm Eyes: Yes: Conjunctiva Clear HENT: Yes: Atraumatic Cardiovascular: Yes: S1, S2 Respiratory: Yes: On Nasal O2 Gastrointestinal: Yes: Soft Genitourinary: Yes: WNL Edema: Yes Edema: LLE: Trace, RLE: Trace Neurological: Yes: Oriented Psychiatric: Yes: Oriented Labs: CBC, BMP 01/15/19 05:30 01/15/19 05:30 INR, PTT INR 0.97 (0.83-1.09) 01/10/19 13:02 Problem List - Problems (1) Anemia Code(s): D64.9 - ANEMIA, UNSPECIFIED Qualifiers: Anemia type: iron deficiency Iron deficiency anemia type: chronic blood loss Qualified Code(s): D50.0 - Iron deficiency anemia secondary to blood loss (chronic) (2) CKD (chronic kidney disease) Code(s): N18.9 - CHRONIC KIDNEY DISEASE, UNSPECIFIED Qualifiers: Assessment/Plan Current Medications Generic Name Dose Route Start Last Admin Trade Name Freq PRN Reason Stop Dose Admin Acetaminophen 650 mg 01/10/19 16:07 Tylenol - PO Q6H PRN PAIN LEVEL 1-5 Albuterol Sulfate 1 amp 01/10/19 16:08 Ventolin 0.083% Nebulizer Soln - NEB Q4H PRN SHORT OF BREATH/WHEEZING Albuterol/Ipratropium 1 amp 01/10/19 20:00 01/15/19 11:23 Duoneb - NEB 1 amp RQID [facility] Administration Amlodipine Besylate 5 mg 01/14/19 10:00 01/15/19 10:05 Norvasc - PO 5 mg DAILY [facility] Administration Bacitracin 1 applic 01/11/19 10:00 01/15/19 10:08 Bacitracin - TP 1 applic DAILY [facility] Administration Budesonide/Formoterol Fumarate 2 puff 01/10/19 22:00 01/15/19 10:08 Symbicort 160/4.5mcg - IH 2 puff BID [facility] Administration Docusate Sodium 100 mg 01/10/19 22:00 01/15/19 10:05 Colace - PO 100 mg BID [facility] Administration Doxycycline Hyclate 100 mg/ 100 mls @ 100 mls/hr 01/11/19 10:00 01/15/19 10: 05 Dextrose IVPB 100 mls/hr BID [facility] Administration Levothyroxine Sodium 75 mcg 01/11/19 07:00 05/17/19 06:12 Synthroid - PO 75 mcg DAILY@0700 [facility] Administration Methylprednisolone Sodium Succinate 40 mg 01/11/19 14:00 01/15/19 10:06 Solu-Medrol - IVPUSH 40 mg DAILY [facility] Administration Pantoprazole Sodium 40 mg 01/14/19 10:15 01/15/19 10:06 Protonix - PO 40 mg DAILY [facility] Administration Impression 1. CKD 2. hypothyroidism 3. breast cancer 4. pleural effusion 5. gout 6. asthma 7. liver disease 8. copd 9. asthma 10. a-fib 11. PATY 12. anemia Plan - renal functio is improving - can get a dose of lasix tomorrow - repeat labs in am - volume status is improving - avoid nsaids
--- NOTE | 2019-01-15 13:56 | PN ---
Progress Note, Physician History of Present Illness: Dyspnea improved now on NC after diuresis, reports dark stools, now agreeable for EGD+/-colonoscopy tomorrow. - Current Medication List Current Medications: Active Medications Acetaminophen (Tylenol -) 650 mg PO Q6H PRN PRN Reason: PAIN LEVEL 1-5 Albuterol Sulfate (Ventolin 0.083% Nebulizer Soln -) 1 amp NEB Q4H PRN PRN Reason: SHORT OF BREATH/WHEEZING Albuterol/Ipratropium (Duoneb -) 1 amp NEB RQID [facility] Last Admin: 01/15/19 11:23 Dose: 1 amp Amlodipine Besylate (Norvasc -) 5 mg PO DAILY [facility] Last Admin: 01/15/19 10:05 Dose: 5 mg Bacitracin (Bacitracin -) 1 applic TP DAILY [facility] Last Admin: 01/15/19 10:08 Dose: 1 applic Budesonide/Formoterol Fumarate (Symbicort 160/4.5mcg -) 2 puff IH BID [facility] Last Admin: 01/15/19 10:08 Dose: 2 puff Docusate Sodium (Colace -) 100 mg PO BID [facility] Last Admin: 01/15/19 10:05 Dose: 100 mg Doxycycline Hyclate 100 mg/ (Dextrose) 100 mls @ 100 mls/hr IVPB BID [facility] Last Admin: 01/15/19 10:05 Dose: 100 mls/hr Levothyroxine Sodium (Synthroid -) 75 mcg PO DAILY@0700 [facility] Last Admin: 01/15/19 06:12 Dose: 75 mcg Methylprednisolone Sodium Succinate (Solu-Medrol -) 40 mg IVPUSH DAILY [facility] Last Admin: 01/15/19 10:06 Dose: 40 mg Pantoprazole Sodium (Protonix -) 40 mg PO DAILY [facility] Last Admin: 01/15/19 10:06 Dose: 40 mg - Objective Vital Signs: Vital Signs Temperature 98.1 F 01/15/19 09:37 Pulse Rate 91 H 01/15/19 09:37 Respiratory Rate 20 01/15/19 09:37 Blood Pressure 159/70 01/15/19 09:37 O2 Sat by Pulse Oximetry (%) 100 01/15/19 09:00 Constitutional: Yes: No Distress, Calm Neck: Yes: Supple Cardiovascular: Yes: Regular Rate and Rhythm Respiratory: Yes: Regular, Diminished, On Nasal O2 Gastrointestinal: Yes: Soft, Hypoactive Bowel Sounds Edema: No Labs: CBC, BMP 01/15/19 05:30 01/15/19 05:30 INR, PTT INR 0.97 (0.83-1.09) 01/10/19 13:02 Problem List - Problems (1) Anemia Code(s): D64.9 - ANEMIA, UNSPECIFIED Qualifiers: Anemia type: iron deficiency Iron deficiency anemia type: chronic blood loss Qualified Code(s): D50.0 - Iron deficiency anemia secondary to blood loss (chronic) (2) A-fib Code(s): I48.91 - UNSPECIFIED ATRIAL FIBRILLATION Qualifiers: Atrial fibrillation type: paroxysmal Qualified Code(s): I48.0 - Paroxysmal atrial fibrillation (3) CHF (congestive heart failure) Code(s): I50.9 - HEART FAILURE, UNSPECIFIED Qualifiers: Heart failure type: diastolic Heart failure chronicity: acute on chronic Qualified Code(s): I50.33 - Acute on chronic diastolic (congestive) heart failure (4) CKD (chronic kidney disease) Code(s): N18.9 - CHRONIC KIDNEY DISEASE, UNSPECIFIED Qualifiers: (5) Dyspnea Code(s): R06.00 - DYSPNEA, UNSPECIFIED Qualifiers: Dyspnea type: shortness of breath Qualified Code(s): R06.02 - Shortness of breath; R06.00 - Dyspnea, unspecified; R06.01 - Orthopnea (6) HTN (hypertension) Code(s): I10 - ESSENTIAL (PRIMARY) HYPERTENSION Qualifiers: Hypertension type: essential hypertension Qualified Code(s): I10 - Essential (primary) hypertension Assessment/Plan 09/24/2018 Echo: Normal LV and RV size and fxn, tr MR, TR 1. Dyspnea referable to chronic blood loss anemia 2. Acute on chronic diastolic heart failure post PRBC transfusion resolved 3. COPD 4. CAD with demand ischemia 5. Paroxysmal AF->SR 6. hypothyroidism 7. Acute on CKD resolving 8. History of breast CA 9. Prolonqed QTc PLAN: 1. Monitor CBC. Transfuse PRBC as needed. Currently Eliquis held and to decide whether to restart it pending achievement of hemostasis and EGD/colonoscopy findings 2. Oral diuresis with monitoring renal function and electrolytes as needed. Troponins have peaked 3. Bronchodilators, IV steroid taper, empiric abx course and supplemental O2 as needed 4. Resumed Amlodipine 5 qd when tolerated 5. EGD on Thursday 01/18, continue PPI 5
--- NOTE | 2019-01-15 13:58 | PN ---
Progress Note, Physician Chief Complaint: Ms Taylor says she is feeling fine and without complaint. Denies cp, sob, n/v. - Current Medication List Current Medications: Active Medications Acetaminophen (Tylenol -) 650 mg PO Q6H PRN PRN Reason: PAIN LEVEL 1-5 Albuterol Sulfate (Ventolin 0.083% Nebulizer Soln -) 1 amp NEB Q4H PRN PRN Reason: SHORT OF BREATH/WHEEZING Albuterol/Ipratropium (Duoneb -) 1 amp NEB RQID [facility] Last Admin: 01/15/19 11:23 Dose: 1 amp Amlodipine Besylate (Norvasc -) 5 mg PO DAILY [facility] Last Admin: 01/15/19 10:05 Dose: 5 mg Bacitracin (Bacitracin -) 1 applic TP DAILY [facility] Last Admin: 01/15/19 10:08 Dose: 1 applic Budesonide/Formoterol Fumarate (Symbicort 160/4.5mcg -) 2 puff IH BID [facility] Last Admin: 01/15/19 10:08 Dose: 2 puff Docusate Sodium (Colace -) 100 mg PO BID [facility] Last Admin: 01/15/19 10:05 Dose: 100 mg Doxycycline Hyclate 100 mg/ (Dextrose) 100 mls @ 100 mls/hr IVPB BID [facility] Last Admin: 01/15/19 10:05 Dose: 100 mls/hr Levothyroxine Sodium (Synthroid -) 75 mcg PO DAILY@0700 [facility] Last Admin: 01/15/19 06:12 Dose: 75 mcg Methylprednisolone Sodium Succinate (Solu-Medrol -) 40 mg IVPUSH DAILY [facility] Last Admin: 01/15/19 10:06 Dose: 40 mg Pantoprazole Sodium (Protonix -) 40 mg PO DAILY [facility] Last Admin: 01/15/19 10:06 Dose: 40 mg - Objective Vital Signs: Vital Signs Temperature 36.7 C 01/15/19 09:37 Pulse Rate 91 H 01/15/19 09:37 Respiratory Rate 20 01/15/19 09:37 Blood Pressure 159/70 01/15/19 09:37 O2 Sat by Pulse Oximetry (%) 100 01/15/19 09:00 Constitutional: Yes: Well Nourished, No Distress, Calm Cardiovascular: Yes: Regular Rate and Rhythm. No: Gallop, Murmur, Rub Respiratory: Yes: Regular, On Nasal O2, Wheezes. No: CTA Bilaterally, Rales, Rhonchi Gastrointestinal: Yes: Normal Bowel Sounds, Soft. No: Distention, Tenderness Extremities: Yes: WNL Edema: No Labs: CBC, BMP 01/15/19 05:30 01/15/19 05:30 INR, PTT INR 0.97 (0.83-1.09) 01/10/19 13:02 Problem List - Problems (1) GIB (gastrointestinal bleeding) Code(s): K92.2 - GASTROINTESTINAL HEMORRHAGE, UNSPECIFIED (2) Pneumonia Code(s): J18.9 - PNEUMONIA, UNSPECIFIED ORGANISM (3) Acute exacerbation of chronic obstructive airways disease Code(s): J44.1 - CHRONIC OBSTRUCTIVE PULMONARY DISEASE W (ACUTE) EXACERBATION (4) CHF (congestive heart failure) Code(s): I50.9 - HEART FAILURE, UNSPECIFIED Qualifiers: Qualified Code(s): I50.33 - Acute on chronic diastolic (congestive) heart failure (5) HTN (hypertension) Code(s): I10 - ESSENTIAL (PRIMARY) HYPERTENSION Qualifiers: Qualified Code(s): I10 - Essential (primary) hypertension (6) H/O malignant neoplasm of breast Code(s): Z85.3 - PERSONAL HISTORY OF MALIGNANT NEOPLASM OF BREAST (7) CKD (chronic kidney disease) Code(s): N18.9 - CHRONIC KIDNEY DISEASE, UNSPECIFIED Qualifiers: Assessment/Plan (1) GIB (gastrointestinal bleeding) Assessment/Plan: -GI following -patient agreeing to EGD -planned for Friday -continue protonix, changed to po Code(s): K92.2 - GASTROINTESTINAL HEMORRHAGE, UNSPECIFIED (2) Pneumonia Assessment/Plan: -continue empiric doxycycline, day / Code(s): J18.9 - PNEUMONIA, UNSPECIFIED ORGANISM (3) Acute exacerbation of chronic obstructive airways disease Assessment/Plan: -appreciate pulmonary assistance -continue steroids and bronchodilators -continue solumedrol 40mg IV daily Code(s): J44.1 - CHRONIC OBSTRUCTIVE PULMONARY DISEASE W (ACUTE) EXACERBATION (4) CHF (congestive heart failure) Assessment/Plan: -plan to re-evaluate and give lasix dose tomorrow Code(s): I50.9 - HEART FAILURE, UNSPECIFIED Qualifiers: Heart failure type: diastolic Heart failure chronicity: acute on chronic Qualified Code(s): I50.33 - Acute on chronic diastolic (congestive) heart failure (5) HTN (hypertension) Assessment/Plan: -controlled Code(s): I10 - ESSENTIAL (PRIMARY) HYPERTENSION Qualifiers: Hypertension type: essential hypertension Qualified Code(s): I10 - Essential (primary) hypertension (6) H/O malignant neoplasm of breast Assessment/Plan: -noted Code(s): Z85.3 - PERSONAL HISTORY OF MALIGNANT NEOPLASM OF BREAST (7) CKD (chronic kidney disease) Assessment/Plan: -improving -will get another dose of lasix tomorrow -case d/w Dr Whalen Code(s): N18.9 - CHRONIC KIDNEY DISEASE, UNSPECIFIED
--- NOTE | 2019-01-15 14:17 | PN ---
Progress Note (short form) - Note Progress Note: PULMONARY Appears comfortable Spo2 on o2 94% Constitutional: Yes: NAD Eyes: Yes: WNL HENT: Yes: WNL Neck: Yes: WNL Cardiovascular: Yes: Pulse Irregular, S1, S2 Respiratory: Yes: Scattered rhonchi Gastrointestinal: Yes: Normal Bowel Sounds, Soft Extremities: Yes: WNL Edema: Yes Labs/meds/notes/images reviewed Problem List (1) Anemia Code(s): D64.9 - ANEMIA, UNSPECIFIED Qualifiers: Anemia type: iron deficiency Iron deficiency anemia type: chronic blood loss Qualified Code(s): D50.0 - Iron deficiency anemia secondary to blood loss (chronic) (2) Pneumonia Code(s): J18.9 - PNEUMONIA, UNSPECIFIED ORGANISM (3) A-fib Code(s): I48.91 - UNSPECIFIED ATRIAL FIBRILLATION Qualifiers: Atrial fibrillation type: paroxysmal Qualified Code(s): I48.0 - Paroxysmal atrial fibrillation (4) Allergy to multiple antibiotics Code(s): Z88.1 - ALLERGY STATUS TO OTHER ANTIBIOTIC AGENTS STATUS (5) Asthma Code(s): J45.909 - UNSPECIFIED ASTHMA, UNCOMPLICATED (6) Breast mass, right Code(s): N63.10 - UNSPECIFIED LUMP IN THE RIGHT BREAST, UNSPECIFIED QUADRANT (7) CHF (congestive heart failure) Code(s): I50.9 - HEART FAILURE, UNSPECIFIED Qualifiers: Heart failure type: diastolic Heart failure chronicity: acute on chronic Qualified Code(s): I50.33 - Acute on chronic diastolic (congestive) heart failure (8) CKD (chronic kidney disease) Code(s): N18.9 - CHRONIC KIDNEY DISEASE, UNSPECIFIED Qualifiers: (9) Cough Code(s): R05 - COUGH (10) Diastolic dysfunction Code(s): I51.9 - HEART DISEASE, UNSPECIFIED (11) Dyspnea Code(s): R06.00 - DYSPNEA, UNSPECIFIED Qualifiers: Dyspnea type: shortness of breath Qualified Code(s): R06.02 - Shortness of breath; R06.00 - Dyspnea, unspecified; R06.01 - Orthopnea (12) Gout Code(s): M10.9 - GOUT, UNSPECIFIED (13) H/O malignant neoplasm of breast Code(s): Z85.3 - PERSONAL HISTORY OF MALIGNANT NEOPLASM OF BREAST (14) HTN (hypertension) Code(s): I10 - ESSENTIAL (PRIMARY) HYPERTENSION Qualifiers: Hypertension type: essential hypertension Qualified Code(s): I10 - Essential (primary) hypertension (15) Pleural effusion Code(s): J90 - PLEURAL EFFUSION, NOT ELSEWHERE CLASSIFIED Plan ABX O2 as needed to maintain saturation BD TX PRN Medrol daily F/U chest ct 4- 6 weeks after discharge to confirm resolution of infiltrates normal transfusion threshold Mike RODRIGUES MD
--- NOTE | 2019-01-15 14:24 | PN ---
Physical Exam: SUBJECTIVE: Patient seen and examined resting in bed, nad. no acute events, afebrile hemodynamically stable. denies h/ a, change in vision, difficulty swallowing, bleeding. states she feels much better OBJECTIVE: Vital Signs Period Temp Pulse Resp BP Sys/Trevino Pulse Ox Last 24 Hr 97.6 F-98.4 F 68-97 20-21 128-159/67-84 100-100 GENERAL: Awake, alert, slightly confused, somnolent, in no acute distress. HEAD: Normal with no signs of trauma. EYES: extraocular movements intact, sclera anicteric, conjunctiva clear. No lid lag. EARS, NOSE, THROAT: Moist mucous membranes. NECK: supple without lymphadenopathy LUNGS: diffuse mild wheezing HEART: Regular rate and rhythm, normal S1 and S2 ABDOMEN: Soft, nontender, not distended, normoactive bowel sounds, no guarding, no rebound, no masses. MUSCULOSKELETAL: No CVA tenderness. UPPER EXTREMITIES: 2+ pulses, warm, well-perfused. No peripheral edema. LOWER EXTREMITIES: warm, well-perfused. No calf tenderness. No peripheral edema. NEUROLOGICAL: Cranial nerves II-XII grossly intact. Normal speech. PSYCHIATRIC: Cooperative. Good eye contact. Appropriate mood and affect. SKIN: Warm, dry Laboratory Results - last 24 hr 01/10/19 01/12/19 01/15/19 13:02 05:30 05:30 WBC RBC Hgb Hct MCV MCH MCHC RDW Plt Count MPV Sodium 142 Potassium 3.7 Chloride 102 Carbon Dioxide 33 H Anion Gap 7 L BUN 35 H Creatinine 2.3 H Est GFR (CKD-EPI)AfAm 23.15 Est GFR (CKD-EPI)NonAf 19.98 Random Glucose 71 L Calcium 8.7 Phosphorus 4.0 Magnesium 2.1 c-ANCA <1:20 Proteinase 3 (PR3) 3.8 H p-ANCA <1:20 Atypical p-ANCA <1:20 Myeloperoxidase Ab <9.0 Blood Type B POSITIVE Antibody Screen Negative Crossmatch See Detail 01/15/19 05:30 WBC 6.5 RBC 3.48 L Hgb 9.7 L Hct 29.5 L MCV 84.8 MCH 28.0 MCHC 33.0 RDW 17.0 H Plt Count 322 MPV 9.6 D Sodium Potassium Chloride Carbon Dioxide Anion Gap BUN Creatinine Est GFR (CKD-EPI)AfAm Est GFR (CKD-EPI)NonAf Random Glucose Calcium Phosphorus Magnesium c-ANCA Proteinase 3 (PR3) p-ANCA Atypical p-ANCA Myeloperoxidase Ab Blood Type Antibody Screen Crossmatch Active Medications Generic Name Dose Route Start Last Admin Trade Name Freq PRN Reason Stop Dose Admin Acetaminophen 650 mg 01/10/19 16:07 Tylenol - PO Q6H PRN PAIN LEVEL 1-5 Albuterol Sulfate 1 amp 01/10/19 16:08 Ventolin 0.083% Nebulizer Soln - NEB Q4H PRN SHORT OF BREATH/WHEEZING Albuterol/Ipratropium 1 amp 01/10/19 20:00 01/15/19 11:23 Duoneb - NEB 1 amp RQID KASSIDY Administration Amlodipine Besylate 5 mg 01/14/19 10:00 01/15/19 10:05 Norvasc - PO 5 mg DAILY KASSIDY Administration Bacitracin 1 applic 01/11/19 10:00 01/15/19 10:08 Bacitracin - TP 1 applic DAILY KASSIDY Administration Budesonide/Formoterol Fumarate 2 puff 01/10/19 22:00 01/15/19 10:08 Symbicort 160/4.5mcg - IH 2 puff BID KASSIDY Administration Docusate Sodium 100 mg 01/10/19 22:00 01/15/19 10:05 Colace - PO 100 mg BID KASSIDY Administration Furosemide 40 mg 01/16/19 08:00 Lasix - PO 01/16/19 08:01 ONCE ONE Doxycycline Hyclate 100 mg/ 100 mls @ 100 mls/hr 01/11/19 10:00 01/15/19 10: 05 Dextrose IVPB 100 mls/hr BID KASSIDY Administration Levothyroxine Sodium 75 mcg 01/11/19 07:00 01/15/19 06:12 Synthroid - PO 75 mcg DAILY@0700 KASSIDY Administration Methylprednisolone Sodium Succinate 40 mg 01/11/19 14:00 01/15/19 10:06 Solu-Medrol - IVPUSH 40 mg DAILY KASSIDY Administration Pantoprazole Sodium 40 mg 01/14/19 10:15 01/15/19 10:06 Protonix - PO 40 mg DAILY KASSIDY Administration ASSESSMENT/PLAN: This is a 78 yo f with PMH of invasive ductal R breast ca (dx 10 years ago, recently worked up again, when reported declined chemoradiation), COPD on 2 L home oxygen, LLL PNA with pleural effusion s/p thoracocentesis transudative (2018),HFPEF, CAD (not reported PCI or intervention), HTN, HLD, CVA with no residual deficits hypothyroidism, gout, who presented with worsening sob and cough with blood tinged sputum x 4 d. invasive ductal R breast ca severe symtomatic anemia acute on chronic hypoxic respirtory failure copd on home o2 LLL effusion CAD HFPEF HTN HLD CHF -breast biopsy done november 17 revealed IDC moderately differentiated ER -100% Her 2 negative, CT -100%, Ki67<10% -should have been on anastrozole for about a month and a half but [facility] states that she has not been taking AI; will start anastrozole -K/L ratio elevated 1.71 -hapto elevated, retic 2.84, Fe low could benefit from supplementation -gi planning EGD once respiratory status is more stable, likely next week
--- NOTE | 2019-01-15 20:52 | PN ---
Progress Note (short form) - Note Progress Note: Patient seen and examined feels better afvss Cor: RSR, No murmurs, No gallops Lungs: Clear to P&A Abd: Soft, Normal bowel sounds, No organomegaly Ext:No significant edema labs/meds reviewed a/p 78 F,recent admission and workup for a pleural effusion s/p thoracentesis found to be transudative. Additional history of breast CA (10 years ago), COPD, anemia, HTN, hypothyroidism, dementia, and gout. Admitted via the ER due to worsening shortness of breath and orthopnea. Reports a non-productive cough. CT: lingular consolidation / small pleural effusions / 1.[address] Also found to be severely anemic, Hgb 5-6, getting transfused. GI consulted Markedly elevated BNP Ongoing GI w/u h/o breast mass for several yrs., patient had refused biopsies and treatment. 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 differentiated,ER-100%, KS-100%, Her2 -, Ki67 <10% Patient was started on AI and PET-CT ordered rediscussed with patient the importanceof taking AI --rediscussed side effecs of AI Will start letrozole with oscal and vitamin D
[2019-01-16] MEDS: LEVOTHYROXINE NA 75 MCG TABLET (FP) PO SCH (06:36)
--- NOTE | 2019-01-16 06:46 | PN ---
Progress Note (short form) - Note Progress Note: Chief Complaint: Events noted, notes reviewed, denies any chest pain, dyspnea improved, post iron infusion, sinus rhythm with IVCD, APC's and PVC's History of Present Illness: Seen and examined on telemetry. Events noted, notes reviewed, denies any chest pain, dyspnea improved, post iron infusion, sinus rhythm with IVCD, APC's and PVC's 09/24/2018 Echo: Normal LV and RV size and function, traced MR and TR - Current Medication List Current Medications Acetaminophen (Tylenol -) 650 mg PO Q6H PRN PRN Reason: PAIN LEVEL 1-5 Amlodipine Besylate (Norvasc -) 5 mg PO DAILY [facility] Last Admin: 01/15/19 10:05 Dose: 5 mg Bacitracin (Bacitracin -) 1 applic TP DAILY [facility] Last Admin: 01/15/19 10:08 Dose: 1 applic Budesonide/Formoterol Fumarate (Symbicort 160/4.5mcg -) 2 puff IH BID [facility] Last Admin: 01/15/19 21:23 Dose: 2 puff Docusate Sodium (Colace -) 100 mg PO BID [facility] Last Admin: 01/15/19 21:23 Dose: 100 mg Furosemide (Lasix -) 40 mg PO ONCE ONE Stop: 01/16/19 08:01 Doxycycline Hyclate 100 mg/ (Dextrose) 100 mls @ 100 mls/hr IVPB BID [facility] Last Admin: 01/15/19 21:25 Dose: 100 mls/hr Levothyroxine Sodium (Synthroid -) 75 mcg PO DAILY@0700 [facility] Last Admin: 01/16/19 06:36 Dose: 75 mcg Methylprednisolone Sodium Succinate (Solu-Medrol -) 40 mg IVPUSH DAILY [facility] Last Admin: 01/15/19 10:06 Dose: 40 mg Pantoprazole Sodium (Protonix -) 40 mg PO DAILY [facility] Last Admin: 01/15/19 10:06 Dose: 40 mg Review of Systems Cardiovascular: As noted above Respiratory: denies: Cough or Sputum Production Gastrointestinal: denies: Nausea, Vomiting, Diarrhea, Constipation or Abdominal Discomfort Musculoskeletal: No Symptoms Reported Endocrine: No Symptoms Reported - Objective Vital Signs: Last Vital Signs Temp Pulse Resp BP Pulse Ox 98.6 F 94 H 20 140/78 98 01/16/19 06:00 01/16/19 06:00 01/16/19 06:00 01/16/19 06:00 01/15/19 21:00 Intake & Output 01/13/19 01/14/19 01/15/19 01/16/19 23:59 23:59 23:59 23:59 Intake Total 227 167 7000 360 Balance 077 588 8414 360 Weight 149 lb 149 lb 12.8 oz 148 lb 3.2 oz 148 lb 6.4 oz Neck: Supple Negative JVD No Bruit Cardiovascular: S1 S2 Regular Rate and Rhythm Ectopics Respiratory: Diminished Breath Sounds Bilaterally Gastrointestinal: Soft Benign Normal Bowel Sounds Ext: Negative Edema Labs: CBC, BMP 01/16/19 05:30 01/16/19 05:30 Hepatic Panel Total Bilirubin 0.1 mg/dL (0.2-1) L 01/11/19 05:30 AST 18 U/L (15-37) 01/11/19 05:30 ALT 10 U/L (13-61) L 01/11/19 05:30 Alkaline Phosphatase 47 U/L (45-117) 01/11/19 05:30 Albumin 3.0 g/dl (3.4-5.0) L 01/14/19 06:25 INR, PTT INR 0.97 (0.83-1.09) 01/10/19 13:02 Assessment/Plan ASSESSMENT: 1. Dyspnea referable to chronic blood loss anemia, clinically improving, further evaluation is planned 2. 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 Acute on chronic class I-II NYHA classification related to diastolic LV dysfunction, resolved 4. Paroxysmal atrial fibrillation currently in sinus rhythm [id number] score of 5 off of A/C pending further evaluation of anemia, complete hemostasis 5. HTN 6. COPD 7. hypothyroidism 8. Acute on CKD resolving PLAN: 1. Continue to withhold Eliquis pending adequate hemostasis and EGD findings 2. Continue Norvasc 3. Continue Lasix with close monitoring renal function and electrolytes 4. Bronchodilators and IV steroid taper as per the primary team 5. Antibiotics as per the primary team 6. EGD this coming week Bob Moody M.D.
[2019-01-16 06:49] LABS: BASO % 0.4 % (0-2.0); EOS % 0.4 % (0-4.5); HEMATOCRIT 29.9 % (32.4-45.2); HEMOGLOBIN 9.9 GM/dL (10.7-15.3); LYMPH % 23.7 % (8-40); MCHC 33.1 g/dl (32.0-36.0); MEAN CELL VOLUME 84.7 fl (80-96); MEAN PLT VOLUME 8.9 fl (7.5-11.1); MONO % 7.2 % (3.8-10.2); NEUT % 68.3 % (42.8-82.8); PLATELET COUNT 331 K/MM3 (134-434); RBC 3.53 M/mm3 (3.60-5.2); RDW 16.3 % (11.6-15.6); WHITE BLOOD COUNT 6.3 K/mm3 (4.0-10.0)
[2019-01-16 07:11] LABS: CALCIUM 8.6 mg/dL (8.5-10.1); CREATININE 2.2 mg/dL (0.55-1.3); PHOSPHOROUS 4.1 mg/dL (2.5-4.9); POTASSIUM 3.9 mmol/L (3.5-5.1)
[2019-01-16] MEDS ORDERED: FUROSEMIDE 40 MG TABLET (FP) PO ONE (08:00)
[2019-01-16] MEDS: PANTOPRAZOLE 40 MG TABLET (FP) PO SCH (09:33)
[2019-01-16] MEDS: amLODIPine BESYLATE 5 MG TABLET (FP) PO SCH (09:34)
[2019-01-16] MEDS: DOCUSATE SODIUM 100 MG CAPSULE (FP) PO SCH ×2 (09:34→21:15)
[2019-01-16] MEDS: BACITRACIN 15 GM TUBE TOPICAL OINTMENT TP SCH (09:35)
[2019-01-16] MEDS: BUDESONIDE/FORMETEROL FUMARATE 160/4.5 mcg INHALER IH SCH ×2 (09:35→21:15)
[2019-01-16] MEDS: methylPREDNISolone NA SUCC 40 MG/1 ML VIAL IVPUSH SCH (09:35)
[2019-01-16] MEDS: DOXYCYCLINE INJECTION 100 MG in DEXTROSE 5%-WATER - 100 ML IVPB SCH ×2 (09:36→21:15)
[2019-01-16] MEDS ORDERED: PT OWN MED DRAWER 7, Y5N ONE (11:26)
[2019-01-16] MEDS: LETROZOLE 2.5 MG TABLET (FP) PO SCH (11:33)
[2019-01-16] MEDS: CALCIUM 500MG/VIT-D 200 UNITS COMBO TABLET (FP) PO SCH ×2 (11:33→21:15)
--- NOTE | 2019-01-16 11:47 | PN ---
Progress Note (short form) - Note Progress Note: PULMONARY Appears comfortable ? diastolic elevation Constitutional: Yes: NAD Eyes: Yes: WNL HENT: Yes: WNL Neck: Yes: WNL Cardiovascular: Yes: Pulse Irregular, S1, S2 Respiratory: Yes: Scattered rhonchi Gastrointestinal: Yes: Normal Bowel Sounds, Soft Extremities: Yes: WNL Edema: Yes Labs/meds/notes/images reviewed ABX O2 as needed to maintain saturation BD TX PRN Medrol daily F/U chest ct 4- 6 weeks after discharge to confirm resolution of infiltrates normal transfusion threshold recheck bp Mike RODRIGUES MD
--- NOTE | 2019-01-16 15:32 | PN ---
Progress Note, Physician Chief Complaint: Ms Taylor says she is feeling fine and without complaint. Denies cp, sob, n/v. - Current Medication List Current Medications: Active Medications Acetaminophen (Tylenol -) 650 mg PO Q6H PRN PRN Reason: PAIN LEVEL 1-5 Amlodipine Besylate (Norvasc -) 5 mg PO DAILY [facility] Last Admin: 01/16/19 09:34 Dose: 5 mg Bacitracin (Bacitracin -) 1 applic TP DAILY [facility] Last Admin: 01/16/19 09:35 Dose: 1 applic Budesonide/Formoterol Fumarate (Symbicort 160/4.5mcg -) 2 puff IH BID [facility] Last Admin: 01/16/19 09:35 Dose: 2 puff Calcium Carbonate/Cholecalciferol (Os-Kip 500+D -) 1 tab PO BID [facility] Last Admin: 01/16/19 11:33 Dose: 1 tab Docusate Sodium (Colace -) 100 mg PO BID [facility] Last Admin: 01/16/19 09:34 Dose: 100 mg Doxycycline Hyclate 100 mg/ (Dextrose) 100 mls @ 100 mls/hr IVPB BID [facility] Last Admin: 01/16/19 09:36 Dose: 100 mls/hr Letrozole (Femara -) 2.5 mg PO DAILY [facility] Last Admin: 01/16/19 11:33 Dose: 2.5 mg Levothyroxine Sodium (Synthroid -) 75 mcg PO DAILY@0700 [facility] Last Admin: 01/16/19 06:36 Dose: 75 mcg Methylprednisolone Sodium Succinate (Solu-Medrol -) 40 mg IVPUSH DAILY [facility] Last Admin: 01/16/19 09:35 Dose: 40 mg Pantoprazole Sodium (Protonix -) 40 mg PO DAILY [facility] Last Admin: 01/16/19 09:33 Dose: 40 mg - Objective Vital Signs: Vital Signs Temperature 36.9 C 01/16/19 14:15 Pulse Rate 92 H 01/16/19 14:15 Respiratory Rate 20 01/16/19 14:15 Blood Pressure 126/80 01/16/19 14:15 O2 Sat by Pulse Oximetry (%) 98 01/15/19 21:00 Constitutional: Yes: Well Nourished, No Distress, Calm Cardiovascular: Yes: Regular Rate and Rhythm. No: Gallop, Murmur, Rub Respiratory: Yes: Regular, On Nasal O2, Wheezes (very slight). No: CTA Bilaterally, Rales, Rhonchi Gastrointestinal: Yes: Normal Bowel Sounds, Soft. No: Distention, Tenderness Extremities: Yes: WNL Edema: No Labs: CBC, BMP 01/16/19 05:30 01/16/19 05:30 INR, PTT INR 0.97 (0.83-1.09) 01/10/19 13:02 Problem List - Problems (1) GIB (gastrointestinal bleeding) Code(s): K92.2 - GASTROINTESTINAL HEMORRHAGE, UNSPECIFIED (2) Pneumonia Code(s): J18.9 - PNEUMONIA, UNSPECIFIED ORGANISM (3) Acute exacerbation of chronic obstructive airways disease Code(s): J44.1 - CHRONIC OBSTRUCTIVE PULMONARY DISEASE W (ACUTE) EXACERBATION (4) CHF (congestive heart failure) Code(s): I50.9 - HEART FAILURE, UNSPECIFIED Qualifiers: Heart failure type: diastolic Heart failure chronicity: acute on chronic Qualified Code(s): I50.33 - Acute on chronic diastolic (congestive) heart failure (5) HTN (hypertension) Code(s): I10 - ESSENTIAL (PRIMARY) HYPERTENSION Qualifiers: Hypertension type: essential hypertension Qualified Code(s): I10 - Essential (primary) hypertension (6) H/O malignant neoplasm of breast Code(s): Z85.3 - PERSONAL HISTORY OF MALIGNANT NEOPLASM OF BREAST (7) CKD (chronic kidney disease) Code(s): N18.9 - CHRONIC KIDNEY DISEASE, UNSPECIFIED Qualifiers: Assessment/Plan (1) GIB (gastrointestinal bleeding) Assessment/Plan: -GI following -patient agreeing to EGD -planned for Friday -continue po protonix Code(s): K92.2 - GASTROINTESTINAL HEMORRHAGE, UNSPECIFIED (2) Pneumonia Assessment/Plan: -continue empiric doxycycline, day 6/ Code(s): J18.9 - PNEUMONIA, UNSPECIFIED ORGANISM (3) Acute exacerbation of chronic obstructive airways disease Assessment/Plan: -appreciate pulmonary assistance -continue steroids and bronchodilators -continue solumedrol 40mg IV daily -plan to change to prednisone taper on discharge Code(s): J44.1 - CHRONIC OBSTRUCTIVE PULMONARY DISEASE W (ACUTE) EXACERBATION (4) CHF (congestive heart failure) Assessment/Plan: -lasix today Code(s): I50.9 - HEART FAILURE, UNSPECIFIED Qualifiers: Heart failure type: diastolic Heart failure chronicity: acute on chronic Qualified Code(s): I50.33 - Acute on chronic diastolic (congestive) heart failure (5) HTN (hypertension) Assessment/Plan: -controlled Code(s): I10 - ESSENTIAL (PRIMARY) HYPERTENSION Qualifiers: Hypertension type: essential hypertension Qualified Code(s): I10 - Essential (primary) hypertension (6) H/O malignant neoplasm of breast Assessment/Plan: -noted Code(s): Z85.3 - PERSONAL HISTORY OF MALIGNANT NEOPLASM OF BREAST (7) CKD (chronic kidney disease) Assessment/Plan: -stable Code(s): N18.9 - CHRONIC KIDNEY DISEASE, UNSPECIFIED Dispo -lab holiday tomorrow
--- NOTE | 2019-01-16 17:12 | PN ---
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 CKD 2. hypothyroidism 3. breast cancer 4. pleural effusion 5. gout 6. asthma 7. liver disease 8. copd 9. asthma 10. a-fib 11. PATY 12. anemia Current Medications Acetaminophen (Tylenol -) 650 mg PO Q6H PRN PRN Reason: PAIN LEVEL 1-5 Amlodipine Besylate (Norvasc -) 5 mg PO DAILY [facility] Last Admin: 01/16/19 09:34 Dose: 5 mg Bacitracin (Bacitracin -) 1 applic TP DAILY [facility] Last Admin: 01/16/19 09:35 Dose: 1 applic Budesonide/Formoterol Fumarate (Symbicort 160/4.5mcg -) 2 puff IH BID [facility] Last Admin: 01/16/19 09:35 Dose: 2 puff Calcium Carbonate/Cholecalciferol (Os-Kip 500+D -) 1 tab PO BID [facility] Last Admin: 01/16/19 11:33 Dose: 1 tab Docusate Sodium (Colace -) 100 mg PO BID [facility] Last Admin: 01/16/19 09:34 Dose: 100 mg Doxycycline Hyclate 100 mg/ (Dextrose) 100 mls @ 100 mls/hr IVPB BID [facility] Last Admin: 01/16/19 09:36 Dose: 100 mls/hr Letrozole (Femara -) 2.5 mg PO DAILY [facility] Last Admin: 01/16/19 11:33 Dose: 2.5 mg Levothyroxine Sodium (Synthroid -) 75 mcg PO DAILY@0700 [facility] Last Admin: 01/16/19 06:36 Dose: 75 mcg Methylprednisolone Sodium Succinate (Solu-Medrol -) 40 mg IVPUSH DAILY [facility] Last Admin: 01/16/19 09:35 Dose: 40 mg Pantoprazole Sodium (Protonix -) 40 mg PO DAILY [facility] Last Admin: 01/16/19 09:33 Dose: 40 mg Last Vital Signs Temp Pulse Resp BP Pulse Ox 98.4 F 92 H 20 126/80 98 01/16/19 14:15 01/16/19 14:15 01/16/19 14:15 01/16/19 14:15 01/16/19 09:00 CBC, BMP 01/16/19 05:30 01/16/19 05:30 IMP paty on chronic CKD s/p lasix x 1 dose Plan- continue present rx
[2019-01-17] MEDS: LEVOTHYROXINE NA 75 MCG TABLET (FP) PO SCH (06:09)
--- NOTE | 2019-01-17 07:25 | PN ---
Progress Note (short form) - Note Progress Note: Chief Complaint: Events noted, notes reviewed, denies any chest pain, dyspnea improved, sinus rhythm with IVCD, APC's and PVC's History of Present Illness: Seen and examined on telemetry. Events noted, notes reviewed, denies any chest pain, dyspnea improved, sinus rhythm with IVCD, APC's and PVC's 09/24/2018 Echo: Normal LV and RV size and function, traced MR and TR - Current Medication List Current Medications Acetaminophen (Tylenol -) 650 mg PO Q6H PRN PRN Reason: PAIN LEVEL 1-5 Amlodipine Besylate (Norvasc -) 5 mg PO DAILY [facility] Last Admin: 01/16/19 09:34 Dose: 5 mg Bacitracin (Bacitracin -) 1 applic TP DAILY [facility] Last Admin: 01/16/19 09:35 Dose: 1 applic Budesonide/Formoterol Fumarate (Symbicort 160/4.5mcg -) 2 puff IH BID [facility] Last Admin: 01/16/19 21:15 Dose: 2 puff Calcium Carbonate/Cholecalciferol (Os-Kip 500+D -) 1 tab PO BID [facility] Last Admin: 01/16/19 21:15 Dose: 1 tab Docusate Sodium (Colace -) 100 mg PO BID [facility] Last Admin: 01/16/19 21:15 Dose: 100 mg Doxycycline Hyclate 100 mg/ (Dextrose) 100 mls @ 100 mls/hr IVPB BID [facility] Last Admin: 01/16/19 21:15 Dose: 100 mls/hr Letrozole (Femara -) 2.5 mg PO DAILY [facility] Last Admin: 01/16/19 11:33 Dose: 2.5 mg Levothyroxine Sodium (Synthroid -) 75 mcg PO DAILY@0700 [facility] Last Admin: 01/17/19 06:09 Dose: 75 mcg Methylprednisolone Sodium Succinate (Solu-Medrol -) 40 mg IVPUSH DAILY [facility] Last Admin: 01/16/19 09:35 Dose: 40 mg Pantoprazole Sodium (Protonix -) 40 mg PO DAILY [facility] Last Admin: 01/16/19 09:33 Dose: 40 mg Review of Systems Cardiovascular: As noted above Respiratory: denies: Cough or Sputum Production Gastrointestinal: denies: Nausea, Vomiting, Diarrhea, Constipation or Abdominal Discomfort Musculoskeletal: No Symptoms Reported Endocrine: No Symptoms Reported - Objective Vital Signs: Last Vital Signs Temp Pulse Resp BP Pulse Ox 98 F 98 H 20 138/76 100 01/17/19 05:41 01/17/19 05:41 01/17/19 05:41 01/17/19 05:41 01/16/19 19:48 Intake & Output 01/14/19 01/15/19 01/16/19 01/17/19 23:59 23:59 23:59 23:59 Intake Total 740 1370 870 Balance 740 1370 870 Weight 149 lb 12.8 oz 148 lb 3.2 oz 148 lb 6.4 oz 145 lb 9.6 oz Neck: Supple Negative JVD No Bruit Cardiovascular: S1 S2 Regular Rate and Rhythm Ectopics Respiratory: Diminished Breath Sounds Bilaterally Gastrointestinal: Soft Benign Normal Bowel Sounds Ext: Negative Edema Labs: CBC, BMP 01/16/19 05:30 01/16/19 05:30 Hepatic Panel Total Bilirubin 0.1 mg/dL (0.2-1) L 01/11/19 05:30 AST 18 U/L (15-37) 01/11/19 05:30 ALT 10 U/L (13-61) L 01/11/19 05:30 Alkaline Phosphatase 47 U/L (45-117) 01/11/19 05:30 Albumin 3.0 g/dl (3.4-5.0) L 01/14/19 06:25 INR, PTT INR 0.97 (0.83-1.09) 01/10/19 13:02 Assessment/Plan ASSESSMENT: 1. Dyspnea referable to chronic blood loss anemia, clinically improving, further evaluation as planned 2. 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 Acute on chronic class I-II NYHA classification related to diastolic LV dysfunction, resolved 4. Paroxysmal atrial fibrillation currently in sinus rhythm [id number] score of 5 off of A/C pending further evaluation of anemia, complete hemostasis 5. HTN 6. COPD 7. Hypothyroidism 8. Acute on CKD resolving PLAN: 1. Continue to withhold Eliquis pending adequate hemostasis and EGD findings 2. Continue Norvasc 3. Bronchodilators and IV steroid taper as per the primary team 4. Antibiotics as per the primary team 5. EGD this coming week Bob Moody M.D.
[2019-01-17] MEDS: BUDESONIDE/FORMETEROL FUMARATE 160/4.5 mcg INHALER IH SCH ×2 (09:49→21:25)
[2019-01-17] MEDS: PANTOPRAZOLE 40 MG TABLET (FP) PO SCH (09:49)
[2019-01-17] MEDS: DOCUSATE SODIUM 100 MG CAPSULE (FP) PO SCH ×2 (09:49→21:25)
[2019-01-17] MEDS: BACITRACIN 15 GM TUBE TOPICAL OINTMENT TP SCH (09:49)
[2019-01-17] MEDS: CALCIUM 500MG/VIT-D 200 UNITS COMBO TABLET (FP) PO SCH ×2 (09:49→21:24)
[2019-01-17] MEDS: amLODIPine BESYLATE 5 MG TABLET (FP) PO SCH (09:49)
[2019-01-17] MEDS: methylPREDNISolone NA SUCC 40 MG/1 ML VIAL IVPUSH SCH (09:50)
[2019-01-17] MEDS: LETROZOLE 2.5 MG TABLET (FP) PO SCH (09:50)
--- NOTE | 2019-01-17 10:05 | PN ---
Progress Note, Physician Chief Complaint: Ms Taylor says she is feeling good and is hoping to go home tomorrow. Denies cp , sob, n/v. - Current Medication List Current Medications: Active Medications Acetaminophen (Tylenol -) 650 mg PO Q6H PRN PRN Reason: PAIN LEVEL 1-5 Amlodipine Besylate (Norvasc -) 5 mg PO DAILY [facility] Last Admin: 01/17/19 09:49 Dose: 5 mg Bacitracin (Bacitracin -) 1 applic TP DAILY [facility] Last Admin: 01/17/19 09:49 Dose: 1 applic Budesonide/Formoterol Fumarate (Symbicort 160/4.5mcg -) 2 puff IH BID [facility] Last Admin: 01/17/19 09:49 Dose: 2 puff Calcium Carbonate/Cholecalciferol (Os-Kip 500+D -) 1 tab PO BID [facility] Last Admin: 01/17/19 09:49 Dose: 1 tab Docusate Sodium (Colace -) 100 mg PO BID [facility] Last Admin: 01/17/19 09:49 Dose: 100 mg Doxycycline Hyclate 100 mg/ (Dextrose) 100 mls @ 100 mls/hr IVPB BID [facility] Last Admin: 01/16/19 21:15 Dose: 100 mls/hr Letrozole (Femara -) 2.5 mg PO DAILY [facility] Last Admin: 01/17/19 09:50 Dose: 2.5 mg Levothyroxine Sodium (Synthroid -) 75 mcg PO DAILY@0700 [facility] Last Admin: 01/17/19 06:09 Dose: 75 mcg Methylprednisolone Sodium Succinate (Solu-Medrol -) 40 mg IVPUSH DAILY [facility] Last Admin: 01/17/19 09:50 Dose: 40 mg Pantoprazole Sodium (Protonix -) 40 mg PO DAILY [facility] Last Admin: 01/17/19 09:49 Dose: 40 mg - Objective Vital Signs: Vital Signs Temperature 36.9 C 01/17/19 08:43 Pulse Rate 92 H 01/17/19 08:43 Respiratory Rate 18 01/17/19 08:43 Blood Pressure 136/101 H 01/17/19 08:43 O2 Sat by Pulse Oximetry (%) 100 01/16/19 19:48 Constitutional: Yes: Well Nourished, No Distress, Calm Cardiovascular: Yes: Regular Rate and Rhythm. No: Gallop, Murmur, Rub Respiratory: Yes: Regular, CTA Bilaterally. No: Rales, Rhonchi, Wheezes Gastrointestinal: Yes: Normal Bowel Sounds, Soft. No: Distention, Tenderness Extremities: Yes: WNL Edema: No Labs: CBC, BMP 01/16/19 05:30 01/16/19 05:30 INR, PTT INR 0.97 (0.83-1.09) 01/10/19 13:02 Problem List - Problems (1) GIB (gastrointestinal bleeding) Code(s): K92.2 - GASTROINTESTINAL HEMORRHAGE, UNSPECIFIED (2) Pneumonia Code(s): J18.9 - PNEUMONIA, UNSPECIFIED ORGANISM (3) Acute exacerbation of chronic obstructive airways disease Code(s): J44.1 - CHRONIC OBSTRUCTIVE PULMONARY DISEASE W (ACUTE) EXACERBATION (4) CHF (congestive heart failure) Code(s): I50.9 - HEART FAILURE, UNSPECIFIED Qualifiers: Heart failure type: diastolic Heart failure chronicity: acute on chronic Qualified Code(s): I50.33 - Acute on chronic diastolic (congestive) heart failure (5) HTN (hypertension) Code(s): I10 - ESSENTIAL (PRIMARY) HYPERTENSION Qualifiers: Hypertension type: essential hypertension Qualified Code(s): I10 - Essential (primary) hypertension (6) H/O malignant neoplasm of breast Code(s): Z85.3 - PERSONAL HISTORY OF MALIGNANT NEOPLASM OF BREAST (7) CKD (chronic kidney disease) Code(s): N18.9 - CHRONIC KIDNEY DISEASE, UNSPECIFIED Qualifiers: Assessment/Plan (1) GIB (gastrointestinal bleeding) Assessment/Plan: -GI following -EGD tomorrow -possible discharge home after this Code(s): K92.2 - GASTROINTESTINAL HEMORRHAGE, UNSPECIFIED (2) Pneumonia Assessment/Plan: -continue empiric doxycycline, day 7/7 -stop after tonight's dose Code(s): J18.9 - PNEUMONIA, UNSPECIFIED ORGANISM (3) Acute exacerbation of chronic obstructive airways disease Assessment/Plan: -appreciate pulmonary assistance -continue steroids and bronchodilators -continue solumedrol 40mg IV daily -plan to change to prednisone taper on discharge Code(s): J44.1 - CHRONIC OBSTRUCTIVE PULMONARY DISEASE W (ACUTE) EXACERBATION (4) CHF (congestive heart failure) Assessment/Plan: -monitor Code(s): I50.9 - HEART FAILURE, UNSPECIFIED Qualifiers: Heart failure type: diastolic Heart failure chronicity: acute on chronic Qualified Code(s): I50.33 - Acute on chronic diastolic (congestive) heart failure (5) HTN (hypertension) Assessment/Plan: -controlled Code(s): I10 - ESSENTIAL (PRIMARY) HYPERTENSION Qualifiers: Hypertension type: essential hypertension Qualified Code(s): I10 - Essential (primary) hypertension (6) H/O malignant neoplasm of breast Assessment/Plan: -noted Code(s): Z85.3 - PERSONAL HISTORY OF MALIGNANT NEOPLASM OF BREAST (7) CKD (chronic kidney disease) Assessment/Plan: -stable Code(s): N18.9 - CHRONIC KIDNEY DISEASE, UNSPECIFIED Dispo -possible discharge tomorrow after EGD
[2019-01-17] MEDS: DOXYCYCLINE INJECTION 100 MG in DEXTROSE 5%-WATER - 100 ML IVPB SCH ×2 (10:43→21:25)
--- NOTE | 2019-01-17 13:53 | PN ---
Progress Note (short form) - Note Progress Note: PULMONARY Appears comfortable oob to chair offers no complaints Constitutional: Yes: NAD Eyes: Yes: WNL HENT: Yes: WNL Neck: Yes: WNL Cardiovascular: Yes: Pulse Irregular, S1, S2 Respiratory: Yes: Scattered rhonchi Gastrointestinal: Yes: Normal Bowel Sounds, Soft Extremities: Yes: WNL Edema: Yes Labs/meds/notes/images reviewed ABX O2 as needed to maintain saturation BD TX PRN Medrol daily to taper F/U chest ct 4- 6 weeks after discharge to confirm resolution of infiltrates normal transfusion threshold Mike RODRIGUES MD
--- NOTE | 2019-01-17 21:25 | PN ---
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 CKD 2. hypothyroidism 3. breast cancer 4. pleural effusion 5. gout 6. asthma 7. liver disease 8. copd 9. asthma 10. a-fib 11. PATY 12. anemia Current Medications Acetaminophen (Tylenol -) 650 mg PO Q6H PRN PRN Reason: PAIN LEVEL 1-5 Amlodipine Besylate (Norvasc -) 5 mg PO DAILY [facility] Last Admin: 01/17/19 09:49 Dose: 5 mg Bacitracin (Bacitracin -) 1 applic TP DAILY [facility] Last Admin: 01/17/19 09:49 Dose: 1 applic Budesonide/Formoterol Fumarate (Symbicort 160/4.5mcg -) 2 puff IH BID [facility] Last Admin: 01/17/19 09:49 Dose: 2 puff Calcium Carbonate/Cholecalciferol (Os-Kip 500+D -) 1 tab PO BID [facility] Last Admin: 01/17/19 09:49 Dose: 1 tab Docusate Sodium (Colace -) 100 mg PO BID [facility] Last Admin: 01/17/19 09:49 Dose: 100 mg Doxycycline Hyclate 100 mg/ (Dextrose) 100 mls @ 100 mls/hr IVPB BID [facility] Stop: 01/17/19 23:59 Last Admin: 01/16/19 21:15 Dose: 100 mls/hr Letrozole (Femara -) 2.5 mg PO DAILY [facility] Last Admin: 01/17/19 09:50 Dose: 2.5 mg Levothyroxine Sodium (Synthroid -) 75 mcg PO DAILY@0700 [facility] Last Admin: 01/17/19 06:09 Dose: 75 mcg Methylprednisolone Sodium Succinate (Solu-Medrol -) 40 mg IVPUSH DAILY [facility] Last Admin: 01/17/19 09:50 Dose: 40 mg Pantoprazole Sodium (Protonix -) 40 mg PO DAILY [facility] Last Admin: 01/17/19 09:49 Dose: 40 mg Last Vital Signs Temp Pulse Resp BP Pulse Ox 98.5 F 111 H 19 117/88 98 01/17/19 18:00 01/17/19 18:00 01/17/19 18:00 01/17/19 18:00 01/17/19 20:00 alert in nad Lungs clear Heart reg abd soft nontender Ext no edema CBC, BMP 01/16/19 05:30 01/16/19 05:30 IMP paty on chronic CKD - resolving renal function near baseline anemia 2/2 chronic blood loss CAD/demand ischemia angina pectoris s/p Acute on chronic HF /diastolic LV dysfunction, Paroxysmal atrial fibrillation/[id number] score of 5 / no A/C pending anemia w/ u, HTN COPD Hypothyroidism Plan- no new intervention
[2019-01-18] MEDS: LEVOTHYROXINE NA 75 MCG TABLET (FP) PO SCH (06:18)
[2019-01-18 06:24] LABS: BASO % 0.4 % (0-2.0); EOS % 0.8 % (0-4.5); HEMATOCRIT 33.2 % (32.4-45.2); HEMOGLOBIN 10.9 GM/dL (10.7-15.3); LYMPH % 27.5 % (8-40); MCH 27.8 pg (25.7-33.7); MCHC 32.9 g/dl (32.0-36.0); MEAN CELL VOLUME 84.2 fl (80-96); MEAN PLT VOLUME 8.4 fl (7.5-11.1); MONO % 6.7 % (3.8-10.2); NEUT % 64.6 % (42.8-82.8); PLATELET COUNT 375 K/MM3 (134-434); RBC 3.94 M/mm3 (3.60-5.2); RDW 16.1 % (11.6-15.6); WHITE BLOOD COUNT 7.5 K/mm3 (4.0-10.0)
[2019-01-18 06:48] LABS: CALCIUM 8.9 mg/dL (8.5-10.1); CREATININE 2.1 mg/dL (0.55-1.3); POTASSIUM 3.4 mmol/L (3.5-5.1)
[2019-01-18] MEDS ORDERED: PT OWN MED DRAWER 7, Y5N ONE ×2 (07:36→17:23)
[2019-01-18] MEDS: BACITRACIN 15 GM TUBE TOPICAL OINTMENT TP SCH (09:19)
[2019-01-18] MEDS: DOCUSATE SODIUM 100 MG CAPSULE (FP) PO SCH ×2 (09:19→23:27)
[2019-01-18] MEDS: amLODIPine BESYLATE 5 MG TABLET (FP) PO SCH (09:19)
[2019-01-18] MEDS: methylPREDNISolone NA SUCC 40 MG/1 ML VIAL IVPUSH SCH (09:19)
[2019-01-18] MEDS: PANTOPRAZOLE 40 MG TABLET (FP) PO SCH (09:20)
[2019-01-18] MEDS: LETROZOLE 2.5 MG TABLET (FP) PO SCH (09:20)
[2019-01-18] MEDS: CALCIUM 500MG/VIT-D 200 UNITS COMBO TABLET (FP) PO SCH ×2 (09:20→23:27)
[2019-01-18] MEDS: BUDESONIDE/FORMETEROL FUMARATE 160/4.5 mcg INHALER IH SCH ×2 (09:26→23:27)
--- NOTE | 2019-01-18 10:05 | PN ---
Progress Note, Physician History of Present Illness: Dyspnea improved now on NC after diuresis, reports dark stools, now agreeable for EGD today. - Current Medication List Current Medications: Active Medications Acetaminophen (Tylenol -) 650 mg PO Q6H PRN PRN Reason: PAIN LEVEL 1-5 Amlodipine Besylate (Norvasc -) 5 mg PO DAILY [facility] Last Admin: 01/18/19 09:19 Dose: 5 mg Bacitracin (Bacitracin -) 1 applic TP DAILY [facility] Last Admin: 01/18/19 09:19 Dose: 1 applic Budesonide/Formoterol Fumarate (Symbicort 160/4.5mcg -) 2 puff IH BID [facility] Last Admin: 01/18/19 09:26 Dose: 2 puff Calcium Carbonate/Cholecalciferol (Os-Kip 500+D -) 1 tab PO BID [facility] Last Admin: 01/18/19 09:20 Dose: Not Given Docusate Sodium (Colace -) 100 mg PO BID [facility] Last Admin: 01/18/19 09:19 Dose: Not Given Letrozole (Femara -) 2.5 mg PO DAILY [facility] Last Admin: 01/18/19 09:20 Dose: 2.5 mg Levothyroxine Sodium (Synthroid -) 75 mcg PO DAILY@0700 [facility] Last Admin: 01/18/19 06:18 Dose: 75 mcg Methylprednisolone Sodium Succinate (Solu-Medrol -) 40 mg IVPUSH DAILY [facility] Last Admin: 01/18/19 09:19 Dose: 40 mg Pantoprazole Sodium (Protonix -) 40 mg PO DAILY [facility] Last Admin: 01/18/19 09:20 Dose: Not Given - Objective Vital Signs: Vital Signs Temperature 98.0 F 01/18/19 08:51 Pulse Rate 96 H 01/18/19 08:51 Respiratory Rate 20 01/18/19 08:51 Blood Pressure 129/71 01/18/19 08:51 O2 Sat by Pulse Oximetry (%) 98 01/18/19 08:51 Constitutional: Yes: No Distress, Calm Neck: Yes: Supple Cardiovascular: Yes: Regular Rate and Rhythm Respiratory: Yes: Regular, Diminished, On Nasal O2 Gastrointestinal: Yes: Soft, Hypoactive Bowel Sounds Edema: No Labs: CBC, BMP 01/18/19 05:30 01/18/19 05:30 INR, PTT INR 0.97 (0.83-1.09) 01/10/19 13:02 Problem List - Problems (1) Anemia Code(s): D64.9 - ANEMIA, UNSPECIFIED Qualifiers: Anemia type: iron deficiency Iron deficiency anemia type: chronic blood loss Qualified Code(s): D50.0 - Iron deficiency anemia secondary to blood loss (chronic) (2) A-fib Code(s): I48.91 - UNSPECIFIED ATRIAL FIBRILLATION Qualifiers: Atrial fibrillation type: paroxysmal Qualified Code(s): I48.0 - Paroxysmal atrial fibrillation (3) CHF (congestive heart failure) Code(s): I50.9 - HEART FAILURE, UNSPECIFIED Qualifiers: Heart failure type: diastolic Heart failure chronicity: acute on chronic Qualified Code(s): I50.33 - Acute on chronic diastolic (congestive) heart failure (4) CKD (chronic kidney disease) Code(s): N18.9 - CHRONIC KIDNEY DISEASE, UNSPECIFIED Qualifiers: (5) Dyspnea Code(s): R06.00 - DYSPNEA, UNSPECIFIED Qualifiers: Dyspnea type: shortness of breath Qualified Code(s): R06.02 - Shortness of breath; R06.00 - Dyspnea, unspecified; R06.01 - Orthopnea (6) HTN (hypertension) Code(s): I10 - ESSENTIAL (PRIMARY) HYPERTENSION Qualifiers: Hypertension type: essential hypertension Qualified Code(s): I10 - Essential (primary) hypertension Assessment/Plan 09/24/2018 Echo: Normal LV and RV size and fxn, tr MR, TR 1. Dyspnea referable to chronic blood loss anemia 2. Acute on chronic diastolic heart failure post PRBC transfusion resolved 3. COPD 4. CAD with demand ischemia 5. Paroxysmal AF->SR [id number] score of 5 off of A/C pending further evaluation of anemia, complete hemostasis 6. Hypothyroidism 7. Acute on CKD resolving 8. History of breast CA 9. Prolonqed QTc PLAN: 1. Monitor CBC. Transfuse PRBC as needed. Currently Eliquis held and to decide whether to restart it pending achievement of hemostasis and EGD/colonoscopy findings 2. Oral diuresis with monitoring renal function and electrolytes as needed. Replete K. 3. Bronchodilators, IV steroid taper, empiric abx course and supplemental O2 as needed 4. Continue Amlodipine 5 qd as hemodynamics tolerate 5. EGD on Thursday 01/18, continue PPI 6. F/U chest ct 4- 6 weeks after discharge to confirm resolution of infiltrates
--- NOTE | 2019-01-18 11:19 | PN ---
Progress Note, Physician History of Present Illness: PULMONARY ALERT,FEELING BETTER,-CP,-SOB - Current Medication List Current Medications: Active Medications Acetaminophen (Tylenol -) 650 mg PO Q6H PRN PRN Reason: PAIN LEVEL 1-5 Amlodipine Besylate (Norvasc -) 5 mg PO DAILY [facility] Last Admin: 01/18/19 09:19 Dose: 5 mg Bacitracin (Bacitracin -) 1 applic TP DAILY [facility] Last Admin: 01/18/19 09:19 Dose: 1 applic Budesonide/Formoterol Fumarate (Symbicort 160/4.5mcg -) 2 puff IH BID [facility] Last Admin: 01/18/19 09:26 Dose: 2 puff Calcium Carbonate/Cholecalciferol (Os-Kip 500+D -) 1 tab PO BID [facility] Last Admin: 01/18/19 09:20 Dose: Not Given Docusate Sodium (Colace -) 100 mg PO BID [facility] Last Admin: 01/18/19 09:19 Dose: Not Given Letrozole (Femara -) 2.5 mg PO DAILY [facility] Last Admin: 01/18/19 09:20 Dose: 2.5 mg Levothyroxine Sodium (Synthroid -) 75 mcg PO DAILY@0700 [facility] Last Admin: 01/18/19 06:18 Dose: 75 mcg Methylprednisolone Sodium Succinate (Solu-Medrol -) 40 mg IVPUSH DAILY [facility] Last Admin: 01/18/19 09:19 Dose: 40 mg Pantoprazole Sodium (Protonix -) 40 mg PO DAILY [facility] Last Admin: 01/18/19 09:20 Dose: Not Given - Objective Vital Signs: Vital Signs Temperature 98.0 F 01/18/19 08:51 Pulse Rate 96 H 01/18/19 08:51 Respiratory Rate 20 01/18/19 08:51 Blood Pressure 129/71 01/18/19 08:51 O2 Sat by Pulse Oximetry (%) 98 01/18/19 08:51 Constitutional: Yes: Well Nourished, Calm Eyes: Yes: WNL HENT: Yes: WNL Neck: Yes: WNL Cardiovascular: Yes: Pulse Irregular, S1, S2 Respiratory: Yes: Diminished Gastrointestinal: Yes: Normal Bowel Sounds, Soft Extremities: Yes: WNL Edema: No Labs: CBC, BMP 01/18/19 05:30 01/18/19 05:30 INR, PTT INR 0.97 (0.83-1.09) 01/10/19 13:02 Assessment/Plan Problem List - Problems (1) Anemia Code(s): D64.9 - ANEMIA, UNSPECIFIED Qualifiers: Anemia type: iron deficiency Iron deficiency anemia type: chronic blood loss Qualified Code(s): D50.0 - Iron deficiency anemia secondary to blood loss (chronic) (2) Pneumonia Code(s): J18.9 - PNEUMONIA, UNSPECIFIED ORGANISM (3) A-fib Code(s): I48.91 - UNSPECIFIED ATRIAL FIBRILLATION Qualifiers: Atrial fibrillation type: paroxysmal Qualified Code(s): I48.0 - Paroxysmal atrial fibrillation (4) Allergy to multiple antibiotics Code(s): Z88.1 - ALLERGY STATUS TO OTHER ANTIBIOTIC AGENTS STATUS (5) Asthma Code(s): J45.909 - UNSPECIFIED ASTHMA, UNCOMPLICATED (6) Breast mass, right Code(s): N63.10 - UNSPECIFIED LUMP IN THE RIGHT BREAST, UNSPECIFIED QUADRANT (7) CHF (congestive heart failure) Code(s): I50.9 - HEART FAILURE, UNSPECIFIED Qualifiers: Heart failure type: diastolic Heart failure chronicity: acute on chronic Qualified Code(s): I50.33 - Acute on chronic diastolic (congestive) heart failure (8) CKD (chronic kidney disease) Code(s): N18.9 - CHRONIC KIDNEY DISEASE, UNSPECIFIED Qualifiers: (9) Cough Code(s): R05 - COUGH (10) Diastolic dysfunction Code(s): I51.9 - HEART DISEASE, UNSPECIFIED (11) Dyspnea Code(s): R06.00 - DYSPNEA, UNSPECIFIED Qualifiers: Dyspnea type: shortness of breath Qualified Code(s): R06.02 - Shortness of breath; R06.00 - Dyspnea, unspecified; R06.01 - Orthopnea (12) Gout Code(s): M10.9 - GOUT, UNSPECIFIED (13) H/O malignant neoplasm of breast Code(s): Z85.3 - PERSONAL HISTORY OF MALIGNANT NEOPLASM OF BREAST (14) HTN (hypertension) Code(s): I10 - ESSENTIAL (PRIMARY) HYPERTENSION Qualifiers: Hypertension type: essential hypertension Qualified Code(s): I10 - Essential (primary) hypertension (15) Pleural effusion Code(s): J90 - PLEURAL EFFUSION, NOT ELSEWHERE CLASSIFIED Assessment/Plan O2 BD TX PRN Medrol taper F/U chest ct 4- 6 weeks after discharge to confirm resolution of infiltrates normal transfusion threshold EGD TODAY DR GAINES
[2019-01-18] MEDS ORDERED: POTASSIUM CHLORIDE TABS 20 MEQ TABLET.ER (FP) PO ONE ×2 (11:32→17:00)
--- NOTE | 2019-01-18 11:35 | PN ---
Progress Note, Physician History of Present Illness: Pt seen and examined at bedside. She is awake and alert. She feels that her breathing is improved. - Current Medication List Current Medications: Active Medications Acetaminophen (Tylenol -) 650 mg PO Q6H PRN PRN Reason: PAIN LEVEL 1-5 Amlodipine Besylate (Norvasc -) 5 mg PO DAILY [facility] Last Admin: 01/18/19 09:19 Dose: 5 mg Bacitracin (Bacitracin -) 1 applic TP DAILY [facility] Last Admin: 01/18/19 09:19 Dose: 1 applic Budesonide/Formoterol Fumarate (Symbicort 160/4.5mcg -) 2 puff IH BID [facility] Last Admin: 01/18/19 09:26 Dose: 2 puff Calcium Carbonate/Cholecalciferol (Os-Kip 500+D -) 1 tab PO BID [facility] Last Admin: 01/18/19 09:20 Dose: Not Given Docusate Sodium (Colace -) 100 mg PO BID [facility] Last Admin: 01/18/19 09:19 Dose: Not Given Letrozole (Femara -) 2.5 mg PO DAILY [facility] Last Admin: 01/18/19 09:20 Dose: 2.5 mg Levothyroxine Sodium (Synthroid -) 75 mcg PO DAILY@0700 [facility] Last Admin: 01/18/19 06:18 Dose: 75 mcg Methylprednisolone Sodium Succinate (Solu-Medrol -) 40 mg IVPUSH DAILY [facility] Last Admin: 01/18/19 09:19 Dose: 40 mg Pantoprazole Sodium (Protonix -) 40 mg PO DAILY [facility] Last Admin: 01/18/19 09:20 Dose: Not Given - Objective Vital Signs: Vital Signs Temperature 98.0 F 01/18/19 08:51 Pulse Rate 96 H 01/18/19 08:51 Respiratory Rate 20 01/18/19 08:51 Blood Pressure 129/71 01/18/19 08:51 O2 Sat by Pulse Oximetry (%) 98 01/18/19 08:51 Constitutional: Yes: Calm Eyes: Yes: Conjunctiva Clear HENT: Yes: Atraumatic Neck: Yes: Supple Cardiovascular: Yes: S1, S2 Respiratory: Yes: CTA Bilaterally Gastrointestinal: Yes: Normal Bowel Sounds, Soft Genitourinary: Yes: WNL Musculoskeletal: Yes: WNL Edema: Yes Edema: LLE: 1+, RLE: 1+ Neurological: Yes: Oriented Psychiatric: Yes: Oriented Labs: CBC, BMP 01/18/19 05:30 01/18/19 05:30 INR, PTT INR 0.97 (0.83-1.09) 01/10/19 13:02 Problem List - Problems (1) Anemia Code(s): D64.9 - ANEMIA, UNSPECIFIED Qualifiers: Anemia type: iron deficiency Iron deficiency anemia type: chronic blood loss Qualified Code(s): D50.0 - Iron deficiency anemia secondary to blood loss (chronic) (2) CKD (chronic kidney disease) Code(s): N18.9 - CHRONIC KIDNEY DISEASE, UNSPECIFIED Qualifiers: Assessment/Plan Current Medications Generic Name Dose Route Start Last Admin Trade Name Freq PRN Reason Stop Dose Admin Acetaminophen 650 mg 01/10/19 16:07 Tylenol - PO Q6H PRN PAIN LEVEL 1-5 Amlodipine Besylate 5 mg 01/14/19 10:00 01/18/19 09:19 Norvasc - PO 5 mg DAILY [facility] Administration Bacitracin 1 applic 01/11/19 10:00 01/18/19 09:19 Bacitracin - TP 1 applic DAILY [facility] Administration Budesonide/Formoterol Fumarate 2 puff 01/10/19 22:00 01/18/19 09:26 Symbicort 160/4.5mcg - IH 2 puff BID [facility] Administration Calcium Carbonate/Cholecalciferol 1 tab 01/16/19 10:00 01/18/19 09:20 Os-Kip 500+D - PO Not Given BID [facility] Docusate Sodium 100 mg 01/10/19 22:00 01/18/19 09:19 Colace - PO Not Given BID [facility] Letrozole 2.5 mg 01/16/19 10:00 01/18/19 09:20 Femara - PO 2.5 mg DAILY [facility] Administration Levothyroxine Sodium 75 mcg 01/11/19 07:00 01/18/19 06:18 Synthroid - PO 75 mcg DAILY@0700 [facility] Administration Methylprednisolone Sodium Succinate 40 mg 01/11/19 14:00 01/18/19 09:19 Solu-Medrol - IVPUSH 40 mg DAILY [facility] Administration Pantoprazole Sodium 40 mg 01/14/19 10:15 01/18/19 09:20 Protonix - PO Not Given DAILY [facility] Laboratory Tests 01/12/19 01/12/19 05:30 05:30 YVON Screen Negative c-ANCA <1:20 Proteinase 3 (PR3) 3.8 H p-ANCA <1:20 Atypical p-ANCA <1:20 Myeloperoxidase Ab <9.0 Double Strand DNA Ab <1 Glomerular Base Memb Ab 3 Free [place] LC, Quant 52.2 H Free [place] LC, Quant 30.5 H Free [place]/Lambda Ratio 1.71 H Hep Bs Antigen Negative Hep Bs Antibody Non reactive Hep B Core Total Ab Negative HCV Quantitation Hcv not detected Impression 1. CKD 2. hypothyroidism 3. breast cancer 4. pleural effusion 5. gout 6. asthma 7. liver disease 8. copd 9. asthma 10. a-fib 11. PATY 12. anemia Plan - cont to monitor renal function - replace potassium - will evaluate for lasix again tomorrow - will need outpt follow up - follow heme eval for elevated kappa lambda ratio - volume status is improving - avoid nsaids
--- NOTE | 2019-01-18 11:35 | PN ---
Progress Note, Physician Chief Complaint: Ms Taylor is without complaint. Denies cp, sob, n/v. - Current Medication List Current Medications: Active Medications Acetaminophen (Tylenol -) 650 mg PO Q6H PRN PRN Reason: PAIN LEVEL 1-5 Amlodipine Besylate (Norvasc -) 5 mg PO DAILY [facility] Last Admin: 01/18/19 09:19 Dose: 5 mg Bacitracin (Bacitracin -) 1 applic TP DAILY [facility] Last Admin: 01/18/19 09:19 Dose: 1 applic Budesonide/Formoterol Fumarate (Symbicort 160/4.5mcg -) 2 puff IH BID [facility] Last Admin: 01/18/19 09:26 Dose: 2 puff Calcium Carbonate/Cholecalciferol (Os-Kip 500+D -) 1 tab PO BID [facility] Last Admin: 01/18/19 09:20 Dose: Not Given Docusate Sodium (Colace -) 100 mg PO BID [facility] Last Admin: 01/18/19 09:19 Dose: Not Given Letrozole (Femara -) 2.5 mg PO DAILY [facility] Last Admin: 01/18/19 09:20 Dose: 2.5 mg Levothyroxine Sodium (Synthroid -) 75 mcg PO DAILY@0700 [facility] Last Admin: 01/18/19 06:18 Dose: 75 mcg Methylprednisolone Sodium Succinate (Solu-Medrol -) 40 mg IVPUSH DAILY [facility] Last Admin: 01/18/19 09:19 Dose: 40 mg Pantoprazole Sodium (Protonix -) 40 mg PO DAILY [facility] Last Admin: 01/18/19 09:20 Dose: Not Given - Objective Vital Signs: Vital Signs Temperature 36.7 C 01/18/19 08:51 Pulse Rate 96 H 01/18/19 08:51 Respiratory Rate 20 01/18/19 08:51 Blood Pressure 129/71 01/18/19 08:51 O2 Sat by Pulse Oximetry (%) 98 01/18/19 08:51 Constitutional: Yes: Well Nourished, No Distress, Calm Cardiovascular: Yes: Regular Rate and Rhythm. No: Gallop, Murmur, Rub Respiratory: Yes: Regular, CTA Bilaterally. No: Rales, Rhonchi, Wheezes Gastrointestinal: Yes: Normal Bowel Sounds, Soft. No: Distention, Tenderness Extremities: Yes: WNL Edema: No Labs: CBC, BMP 01/18/19 05:30 01/18/19 05:30 INR, PTT INR 0.97 (0.83-1.09) 01/10/19 13:02 Problem List - Problems (1) GIB (gastrointestinal bleeding) Code(s): K92.2 - GASTROINTESTINAL HEMORRHAGE, UNSPECIFIED (2) Pneumonia Code(s): J18.9 - PNEUMONIA, UNSPECIFIED ORGANISM (3) Acute exacerbation of chronic obstructive airways disease Code(s): J44.1 - CHRONIC OBSTRUCTIVE PULMONARY DISEASE W (ACUTE) EXACERBATION (4) CHF (congestive heart failure) Code(s): I50.9 - HEART FAILURE, UNSPECIFIED Qualifiers: Qualified Code(s): I50.33 - Acute on chronic diastolic (congestive) heart failure (5) HTN (hypertension) Code(s): I10 - ESSENTIAL (PRIMARY) HYPERTENSION Qualifiers: Qualified Code(s): I10 - Essential (primary) hypertension (6) H/O malignant neoplasm of breast Code(s): Z85.3 - PERSONAL HISTORY OF MALIGNANT NEOPLASM OF BREAST (7) CKD (chronic kidney disease) Code(s): N18.9 - CHRONIC KIDNEY DISEASE, UNSPECIFIED Qualifiers: Assessment/Plan (1) GIB (gastrointestinal bleeding) Assessment/Plan: -GI following -EGD today -continue protonix -possible discharge home after EGD Code(s): K92.2 - GASTROINTESTINAL HEMORRHAGE, UNSPECIFIED (2) Pneumonia Assessment/Plan: -s/p full course Code(s): J18.9 - PNEUMONIA, UNSPECIFIED ORGANISM (3) Acute exacerbation of chronic obstructive airways disease Assessment/Plan: -taper on discharge Code(s): J44.1 - CHRONIC OBSTRUCTIVE PULMONARY DISEASE W (ACUTE) EXACERBATION (4) CHF (congestive heart failure) Assessment/Plan: -monitor Code(s): I50.9 - HEART FAILURE, UNSPECIFIED Qualifiers: Heart failure type: diastolic Heart failure chronicity: acute on chronic Qualified Code(s): I50.33 - Acute on chronic diastolic (congestive) heart failure (5) HTN (hypertension) Assessment/Plan: -controlled Code(s): I10 - ESSENTIAL (PRIMARY) HYPERTENSION Qualifiers: Hypertension type: essential hypertension Qualified Code(s): I10 - Essential (primary) hypertension (6) H/O malignant neoplasm of breast Assessment/Plan: -noted Code(s): Z85.3 - PERSONAL HISTORY OF MALIGNANT NEOPLASM OF BREAST (7) CKD (chronic kidney disease) Assessment/Plan: -stable Code(s): N18.9 - CHRONIC KIDNEY DISEASE, UNSPECIFIED Dispo -possible discharge today after EGD
[2019-01-18] MEDS ORDERED: GLUCAGON 1 MG KIT ONE (13:11)
--- NOTE | 2019-01-18 14:03 | PN ---
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
[2019-01-18] MEDS ORDERED: IRON SUCROSE INJECTION 100 MG in SODIUM CHLORIDE 95 ML IVPB ONE (15:31)
--- NOTE | 2019-01-18 21:19 | PN ---
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's mucosa seen at the [facility], not biopsied at this time--needs outpatient bx Last Vital Signs Temp Pulse Resp BP Pulse Ox 97.5 F L 74 20 141/76 99 01/18/19 18:00 01/18/19 18:00 01/18/19 18:00 01/18/19 16:46 01/18/19 13:49 Cor: RSR, No murmurs, No gallops Lungs: Clear to P&A Abd: Soft, Normal bowel sounds, No organomegaly Ext:No significant edema Abnormal Lab Results 01/18/19 01/18/19 05:30 05:30 RDW 16.1 H Potassium 3.4 L BUN 40 H Creatinine 2.1 H Random Glucose 68 L Active Medications Generic Name Dose Route Start Last Admin Trade Name Freq PRN Reason Stop Dose Admin Acetaminophen 650 mg 01/10/19 16:07 Tylenol - PO Q6H PRN PAIN LEVEL 1-5 Amlodipine Besylate 5 mg 01/14/19 10:00 01/18/19 09:19 Norvasc - PO 5 mg DAILY KASSIDY Administration Bacitracin 1 applic 01/11/19 10:00 01/18/19 09:19 Bacitracin - TP 1 applic DAILY KASSIDY Administration Budesonide/Formoterol Fumarate 2 puff 01/10/19 22:00 01/18/19 09:26 Symbicort 160/4.5mcg - IH 2 puff BID KASSIDY Administration Calcium Carbonate/Cholecalciferol 1 tab 01/16/19 10:00 01/18/19 09:20 Os-Kip 500+D - PO Not Given BID KASSIDY Docusate Sodium 100 mg 01/10/19 22:00 01/18/19 09:19 Colace - PO Not Given BID KASSIDY Letrozole 2.5 mg 01/16/19 10:00 01/18/19 09:20 Femara - PO 2.5 mg DAILY KASSIDY Administration Levothyroxine Sodium 75 mcg 01/11/19 07:00 01/18/19 06:18 Synthroid - PO 75 mcg DAILY@0700 K[facility]Y Administration Methylprednisolone Sodium Succinate 40 mg 01/11/19 14:00 05/20/19 09:19 Solu-Medrol - IVPUSH 40 mg DAILY KASSIDY Administration Pantoprazole Sodium 40 mg 01/14/19 10:15 01/18/19 09:20 Protonix - PO Not Given DAILY KASSIDY a/p 78 F,recent admission and workup for a pleural effusion s/p thoracentesis found to be transudative. Additional history of breast CA (10 years ago), COPD, anemia, HTN, hypothyroidism, dementia, and gout. Admitted via the ER due to worsening shortness of breath and orthopnea. Reports a non-productive cough. 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
[2019-01-19 00:01] VITALS: BMI 25.2
[2019-01-19] MEDS: LEVOTHYROXINE NA 75 MCG TABLET (FP) PO SCH (06:51)
[2019-01-19 08:40] VITALS: BP 140/73; PULSE 95; TEMP 98.7
[2019-01-19] MEDS: methylPREDNISolone NA SUCC 40 MG/1 ML VIAL IVPUSH SCH (10:13)
[2019-01-19] MEDS: BUDESONIDE/FORMETEROL FUMARATE 160/4.5 mcg INHALER IH SCH (10:14)
[2019-01-19] MEDS: BACITRACIN 15 GM TUBE TOPICAL OINTMENT TP SCH (10:14)
[2019-01-19] MEDS: DOCUSATE SODIUM 100 MG CAPSULE (FP) PO SCH (10:15)
[2019-01-19] MEDS: amLODIPine BESYLATE 5 MG TABLET (FP) PO SCH (10:15)
[2019-01-19] MEDS: PANTOPRAZOLE 40 MG TABLET (FP) PO SCH (10:15)
[2019-01-19] MEDS: CALCIUM 500MG/VIT-D 200 UNITS COMBO TABLET (FP) PO SCH (10:16)
[2019-01-19] MEDS: LETROZOLE 2.5 MG TABLET (FP) PO SCH (10:17)
--- NOTE | 2019-01-19 10:29 | PN ---
Progress Note, Physician Chief Complaint: Events noted Not in distress History of Present Illness: Patient was seen and examined. Awake and alert. Chart was reviewed Denies chest pain, SOB or palpitations Post GI work up. - Current Medication List Current Medications: Active Medications Acetaminophen (Tylenol -) 650 mg PO Q6H PRN PRN Reason: PAIN LEVEL 1-5 Amlodipine Besylate (Norvasc -) 5 mg PO DAILY [facility] Last Admin: 01/19/19 10:15 Dose: 5 mg Bacitracin (Bacitracin -) 1 applic TP DAILY [facility] Last Admin: 01/19/19 10:14 Dose: 1 applic Budesonide/Formoterol Fumarate (Symbicort 160/4.5mcg -) 2 puff IH BID [facility] Last Admin: 01/19/19 10:14 Dose: 2 puff Calcium Carbonate/Cholecalciferol (Os-Kip 500+D -) 1 tab PO BID [facility] Last Admin: 01/19/19 10:16 Dose: 1 tab Docusate Sodium (Colace -) 100 mg PO BID [facility] Last Admin: 01/19/19 10:15 Dose: 100 mg Letrozole (Femara -) 2.5 mg PO DAILY [facility] Last Admin: 01/19/19 10:17 Dose: 2.5 mg Levothyroxine Sodium (Synthroid -) 75 mcg PO DAILY@0700 [facility] Last Admin: 01/19/19 06:51 Dose: 75 mcg Methylprednisolone Sodium Succinate (Solu-Medrol -) 40 mg IVPUSH DAILY [facility] Last Admin: 01/19/19 10:13 Dose: Not Given Pantoprazole Sodium (Protonix -) 40 mg PO DAILY [facility] Last Admin: 01/19/19 10:15 Dose: 40 mg - Objective Vital Signs: Vital Signs Temperature 98.7 F 01/19/19 08:39 Pulse Rate 95 H 01/19/19 08:39 Respiratory Rate 20 01/19/19 08:39 Blood Pressure 140/73 01/19/19 08:39 O2 Sat by Pulse Oximetry (%) 99 01/18/19 21:00 Eyes: Yes: PERRL HENT: Yes: Atraumatic Neck: Yes: Supple Cardiovascular: Yes: Pulse Irregular, S1, S2 Respiratory: Yes: CTA Bilaterally Gastrointestinal: Yes: Normal Bowel Sounds, Soft. No: Tenderness Edema: No Additional Findings/Remarks: - Review of Systems Constitutional: denies: Chills, Fever Cardiovascular: denies: Chest Pain. denies: Palpitations, (+) Shortness of Breath Respiratory: denies: Cough, Hemoptysis, Orthopnea, PND, (+) SOB, SOB on Exertion Gastrointestinal: denies: Diarrhea, Nausea. denies: Abdominal Pain, Constipation, Melena, Rectal Bleeding, Vomiting Genitourinary: denies: Dysuria, Hematuria Musculoskeletal: denies: Back Pain, Joint Pain Neurological: denies: Dizziness, Headache, Seizure, Syncope Labs: CBC, BMP 01/18/19 05:30 01/18/19 05:30 Problem List - Problems (1) Anemia Code(s): D64.9 - ANEMIA, UNSPECIFIED Qualifiers: Anemia type: iron deficiency Iron deficiency anemia type: chronic blood loss Qualified Code(s): D50.0 - Iron deficiency anemia secondary to blood loss (chronic) (2) A-fib Code(s): I48.91 - UNSPECIFIED ATRIAL FIBRILLATION Qualifiers: Atrial fibrillation type: paroxysmal Qualified Code(s): I48.0 - Paroxysmal atrial fibrillation (3) Acute exacerbation of chronic obstructive airways disease Code(s): J44.1 - CHRONIC OBSTRUCTIVE PULMONARY DISEASE W (ACUTE) EXACERBATION (4) CHF (congestive heart failure) Code(s): I50.9 - HEART FAILURE, UNSPECIFIED Qualifiers: Heart failure type: diastolic Heart failure chronicity: acute on chronic Qualified Code(s): I50.33 - Acute on chronic diastolic (congestive) heart failure (5) CKD (chronic kidney disease) Code(s): N18.9 - CHRONIC KIDNEY DISEASE, UNSPECIFIED Qualifiers: (6) Diastolic dysfunction Code(s): I51.9 - HEART DISEASE, UNSPECIFIED (7) H/O malignant neoplasm of breast Code(s): Z85.3 - PERSONAL HISTORY OF MALIGNANT NEOPLASM OF BREAST (8) HTN (hypertension) Code(s): I10 - ESSENTIAL (PRIMARY) HYPERTENSION Qualifiers: Hypertension type: essential hypertension Qualified Code(s): I10 - Essential (primary) hypertension Assessment/Plan 1. Dyspnea referable to chronic blood loss anemia 2. Acute on chronic diastolic heart failure euvolemic/compensated 3. COPD 4. CAD with demand ischemia 5. Paroxysmal AF [id number] score of 5 off of A/C 6. Hypothyroidism 7. Acute on CKD 8. History of breast CA 9. Prolonqed QTc 10. Hypothyroidism PLAN: 1. GI input noted. 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 Continue Amlodipine 5 mg QD as tolerated 3. Previously was on Eliquis 5 mg BID but currently held. Ideally indicated cardiac point of view but would need GI and Hematology input and recommendation 4. PPI 5. Bronchodilators, Steroid taper and O2 as needed Further plans are to follow Yoel Easton MD
--- NOTE | 2019-01-19 11:14 | PN ---
Progress Note, Physician History of Present Illness: PULMONARY ALERT,SITTING P IN BED,-C/O SOB,-CP - Current Medication List Current Medications: Active Medications Acetaminophen (Tylenol -) 650 mg PO Q6H PRN PRN Reason: PAIN LEVEL 1-5 Amlodipine Besylate (Norvasc -) 5 mg PO DAILY [facility] Last Admin: 01/19/19 10:15 Dose: 5 mg Bacitracin (Bacitracin -) 1 applic TP DAILY [facility] Last Admin: 01/19/19 10:14 Dose: 1 applic Budesonide/Formoterol Fumarate (Symbicort 160/4.5mcg -) 2 puff IH BID [facility] Last Admin: 01/19/19 10:14 Dose: 2 puff Calcium Carbonate/Cholecalciferol (Os-Kip 500+D -) 1 tab PO BID [facility] Last Admin: 01/19/19 10:16 Dose: 1 tab Docusate Sodium (Colace -) 100 mg PO BID [facility] Last Admin: 01/19/19 10:15 Dose: 100 mg Letrozole (Femara -) 2.5 mg PO DAILY [facility] Last Admin: 01/19/19 10:17 Dose: 2.5 mg Levothyroxine Sodium (Synthroid -) 75 mcg PO DAILY@0700 [facility] Last Admin: 01/19/19 06:51 Dose: 75 mcg Methylprednisolone Sodium Succinate (Solu-Medrol -) 40 mg IVPUSH DAILY [facility] Last Admin: 01/19/19 10:13 Dose: Not Given Pantoprazole Sodium (Protonix -) 40 mg PO DAILY [facility] Last Admin: 01/19/19 10:15 Dose: 40 mg - Objective Vital Signs: Vital Signs Temperature 98.7 F 01/19/19 08:39 Pulse Rate 95 H 01/19/19 08:39 Respiratory Rate 20 01/19/19 08:39 Blood Pressure 140/73 01/19/19 08:39 O2 Sat by Pulse Oximetry (%) 99 01/18/19 21:00 Constitutional: Yes: Well Nourished, Calm Eyes: Yes: WNL HENT: Yes: WNL Neck: Yes: WNL Cardiovascular: Yes: Regular Rate and Rhythm, Pulse Irregular, S1, S2 Respiratory: Yes: CTA Bilaterally Gastrointestinal: Yes: Normal Bowel Sounds, Soft Extremities: Yes: WNL Edema: No Labs: Assessment/Plan Problem List - Problems (1) Anemia Code(s): D64.9 - ANEMIA, UNSPECIFIED Qualifiers: Anemia type: iron deficiency Iron deficiency anemia type: chronic blood loss Qualified Code(s): D50.0 - Iron deficiency anemia secondary to blood loss (chronic) (2) Pneumonia Code(s): J18.9 - PNEUMONIA, UNSPECIFIED ORGANISM (3) A-fib Code(s): I48.91 - UNSPECIFIED ATRIAL FIBRILLATION Qualifiers: Atrial fibrillation type: paroxysmal Qualified Code(s): I48.0 - Paroxysmal atrial fibrillation (4) Allergy to multiple antibiotics Code(s): Z88.1 - ALLERGY STATUS TO OTHER ANTIBIOTIC AGENTS STATUS (5) Asthma Code(s): J45.909 - UNSPECIFIED ASTHMA, UNCOMPLICATED (6) Breast mass, right Code(s): N63.10 - UNSPECIFIED LUMP IN THE RIGHT BREAST, UNSPECIFIED QUADRANT (7) CHF (congestive heart failure) Code(s): I50.9 - HEART FAILURE, UNSPECIFIED Qualifiers: Heart failure type: diastolic Heart failure chronicity: acute on chronic Qualified Code(s): I50.33 - Acute on chronic diastolic (congestive) heart failure (8) CKD (chronic kidney disease) Code(s): N18.9 - CHRONIC KIDNEY DISEASE, UNSPECIFIED Qualifiers: (9) Cough Code(s): R05 - COUGH (10) Diastolic dysfunction Code(s): I51.9 - HEART DISEASE, UNSPECIFIED (11) Dyspnea Code(s): R06.00 - DYSPNEA, UNSPECIFIED Qualifiers: Dyspnea type: shortness of breath Qualified Code(s): R06.02 - Shortness of breath; R06.00 - Dyspnea, unspecified; R06.01 - Orthopnea (12) Gout Code(s): M10.9 - GOUT, UNSPECIFIED (13) H/O malignant neoplasm of breast Code(s): Z85.3 - PERSONAL HISTORY OF MALIGNANT NEOPLASM OF BREAST (14) HTN (hypertension) Code(s): I10 - ESSENTIAL (PRIMARY) HYPERTENSION Qualifiers: Hypertension type: essential hypertension Qualified Code(s): I10 - Essential (primary) hypertension (15) Pleural effusion Code(s): J90 - PLEURAL EFFUSION, NOT ELSEWHERE CLASSIFIED Assessment/Plan O2 as needed BD TX PRN Prednisone 30mg daily with taper F/U chest ct 4- 6 weeks after discharge to confirm resolution of infiltrates normal transfusion threshold DR GAINES
--- NOTE | 2019-01-19 11:34 | PN ---
Progress Note, Physician History of Present Illness: Pt seen and examined at bedside. She is awake and alert. She denies shortness of breath. - Current Medication List Current Medications: Active Medications Acetaminophen (Tylenol -) 650 mg PO Q6H PRN PRN Reason: PAIN LEVEL 1-5 Amlodipine Besylate (Norvasc -) 5 mg PO DAILY [facility] Last Admin: 01/19/19 10:15 Dose: 5 mg Bacitracin (Bacitracin -) 1 applic TP DAILY [facility] Last Admin: 01/19/19 10:14 Dose: 1 applic Budesonide/Formoterol Fumarate (Symbicort 160/4.5mcg -) 2 puff IH BID [facility] Last Admin: 01/19/19 10:14 Dose: 2 puff Calcium Carbonate/Cholecalciferol (Os-Kip 500+D -) 1 tab PO BID [facility] Last Admin: 01/19/19 10:16 Dose: 1 tab Docusate Sodium (Colace -) 100 mg PO BID [facility] Last Admin: 01/19/19 10:15 Dose: 100 mg Letrozole (Femara -) 2.5 mg PO DAILY [facility] Last Admin: 01/19/19 10:17 Dose: 2.5 mg Levothyroxine Sodium (Synthroid -) 75 mcg PO DAILY@0700 [facility] Last Admin: 01/19/19 06:51 Dose: 75 mcg Methylprednisolone Sodium Succinate (Solu-Medrol -) 40 mg IVPUSH DAILY [facility] Last Admin: 01/19/19 10:13 Dose: Not Given Pantoprazole Sodium (Protonix -) 40 mg PO DAILY [facility] Last Admin: 01/19/19 10:15 Dose: 40 mg - Objective Vital Signs: Vital Signs Temperature 98.7 F 01/19/19 08:39 Pulse Rate 95 H 01/19/19 08:39 Respiratory Rate 20 01/19/19 08:39 Blood Pressure 140/73 01/19/19 08:39 O2 Sat by Pulse Oximetry (%) 99 01/18/19 21:00 Constitutional: Yes: Calm Eyes: Yes: Conjunctiva Clear HENT: Yes: Atraumatic Neck: Yes: Supple Cardiovascular: Yes: S1, S2 Respiratory: Yes: CTA Bilaterally Gastrointestinal: Yes: Normal Bowel Sounds, Soft Genitourinary: Yes: WNL Musculoskeletal: Yes: WNL Edema: LLE: Trace, RLE: Trace Neurological: Yes: Oriented Psychiatric: Yes: Oriented Labs: CBC, BMP 01/18/19 05:30 01/18/19 05:30 INR, PTT INR 0.97 (0.83-1.09) 01/10/19 13:02 Problem List - Problems (1) Anemia Code(s): D64.9 - ANEMIA, UNSPECIFIED Qualifiers: Anemia type: iron deficiency Iron deficiency anemia type: chronic blood loss Qualified Code(s): D50.0 - Iron deficiency anemia secondary to blood loss (chronic) (2) CKD (chronic kidney disease) Code(s): N18.9 - CHRONIC KIDNEY DISEASE, UNSPECIFIED Qualifiers: Assessment/Plan Current Medications Generic Name Dose Route Start Last Admin Trade Name Freq PRN Reason Stop Dose Admin Acetaminophen 650 mg 01/10/19 16:07 Tylenol - PO Q6H PRN PAIN LEVEL 1-5 Amlodipine Besylate 5 mg 01/14/19 10:00 01/19/19 10:15 Norvasc - PO 5 mg DAILY [facility]Y Administration Bacitracin 1 applic 01/11/19 10:00 01/19/19 10:14 Bacitracin - TP 1 applic DAILY [facility]Y Administration Budesonide/Formoterol Fumarate 2 puff 01/10/19 22:00 01/19/19 10:14 Symbicort 160/4.5mcg - IH 2 puff BID K[facility]IDY Administration Calcium Carbonate/Cholecalciferol 1 tab 01/16/19 10:00 01/19/19 10:16 Os-Kip 500+D - PO 1 tab BID [facility]Y Administration Docusate Sodium 100 mg 01/10/19 22:00 01/19/19 10:15 Colace - PO 100 mg BID K[facility]IDY Administration Letrozole 2.5 mg 01/16/19 10:00 01/19/19 10:17 Femara - PO 2.5 mg DAILY [facility]Y Administration Levothyroxine Sodium 75 mcg 01/11/19 07:00 01/19/19 06:51 Synthroid - PO 75 mcg DAILY@0700 [facility]Y Administration Methylprednisolone Sodium Succinate 40 mg 01/11/19 14:00 01/19/19 10:13 Solu-Medrol - IVPUSH Not Given DAILY [facility]Y Pantoprazole Sodium 40 mg 01/14/19 10:15 01/19/19 10:15 Protonix - PO 40 mg DAILY [facility]Y Administration Impression 1. CKD 2. hypothyroidism 3. breast cancer 4. pleural effusion 5. gout 6. asthma 7. liver disease 8. copd 9. asthma 10. a-fib 11. PATY 12. anemia Plan - check bmp and potassium - lasix prn - will need outpt follow up - volume status is improving - avoid nsaids
[2019-01-19 12:59] LABS: CALCIUM 9.3 mg/dL (8.5-10.1); CREATININE 2.3 mg/dL (0.55-1.3); MAGNESIUM 1.9 mg/dL (1.8-2.4); POTASSIUM 3.6 mmol/L (3.5-5.1)
--- NOTE | 2019-01-19 15:12 | DS ---
Physical Examination Vital Signs: Vital Signs Temperature 37.1 C 01/19/19 08:39 Pulse Rate 95 H 01/19/19 08:39 Respiratory Rate 20 01/19/19 08:39 Blood Pressure 140/73 01/19/19 08:39 O2 Sat by Pulse Oximetry (%) 97 01/19/19 09:00 Constitutional: Yes: Well Nourished, No Distress, Calm Cardiovascular: Yes: Regular Rate and Rhythm. No: Gallop, Murmur, Rub Respiratory: Yes: Regular, CTA Bilaterally. No: Rales, Rhonchi, Wheezes Gastrointestinal: Yes: Normal Bowel Sounds, Soft. No: Distention, Tenderness Extremities: Yes: WNL Edema: No Labs: CBC, BMP 01/18/19 05:30 01/19/19 12:15 Discharge Summary Reason For Visit: ANEMIA,PNEUMONIA Hospital Course: (1) GIB (gastrointestinal bleeding) Code(s): K92.2 - GASTROINTESTINAL HEMORRHAGE, UNSPECIFIED (2) Pneumonia Code(s): J18.9 - PNEUMONIA, UNSPECIFIED ORGANISM (3) Acute exacerbation of chronic obstructive airways disease Code(s): J44.1 - CHRONIC OBSTRUCTIVE PULMONARY DISEASE W (ACUTE) EXACERBATION (4) CHF (congestive heart failure) Code(s): I50.9 - HEART FAILURE, UNSPECIFIED Qualifiers: Qualified Code(s): I50.33 - Acute on chronic diastolic (congestive) heart failure (5) HTN (hypertension) Code(s): I10 - ESSENTIAL (PRIMARY) HYPERTENSION Qualifiers: Qualified Code(s): I10 - Essential (primary) hypertension (6) H/O malignant neoplasm of breast Code(s): Z85.3 - PERSONAL HISTORY OF MALIGNANT NEOPLASM OF BREAST (7) CKD (chronic kidney disease) Code(s): N18.9 - CHRONIC KIDNEY DISEASE, UNSPECIFIED Qualifiers: Ms Taylor is a very pleasant 78 year old female who comes in with GIB and COPD exacerbation. She was admitted to telemetry and seen by cardiology and pulmonary. She was treated with high dose steroids and was able to be transitioned to a prednisone taper. It was unclear if she had a pneumonia and she was treated for this for 7 days. She was found to have a GIB and placed on protonix gtt. She was seen by GI and she agreed to undergo EGD. When she was stable from a pulmonary standpoint it was performed. She is currently stable for discharge home. 32 minutes spent in preparation of this discharge Condition: Stable - Instructions Diet, Activity, Other Instructions: diabetic diet. Continue previous activity. Continuous oxygen. Hold on eliquis currently. Follow up with outpatient physician to re-address if this can be restarted after finishing 14 days of protonix. Referrals: Brandon Castorena DO [Staff Physician] - Isra Britton MD [Primary Care Provider] - Disposition: HOME - Home Medications Comprehensive Discharge Medication List: Ambulatory Orders Allopurinol [Zyloprim -] 100 mg PO DAILY 08/30/18 Budesonide/Formeterol Fumarate [SYMBICORT 160/4.5mcg -] 2 inh PO BID 08/30/18 Calcium Carbonate/Vitamin D3 [Calcium 600+D Softgel] 2 each PO DAILY 08/30/18 Docusate Sodium [Colace] 100 mg PO BID 08/30/18 Levothyroxine [Synthroid -] 75 mcg PO DAILY 08/30/18 Acetaminophen [Tylenol] 650 mg PO Q6H PRN 01/10/19 Albuterol Sulfate Inhaler - [Ventolin HFA Inhaler -] 1 inh PO Q4H PRN 01/10/19 Albuterol Sulfate [Proair Hfa] 8.5 gm IH TID PRN 01/10/19 Amlodipine Besylate [Norvasc -] 10 mg PO DAILY 01/10/19 Bacitracin - [Bacitracin Topical Ointment -] 1 applic TP DAILY 01/10/19 Ferrous Sulfate [Iron] 143 mg PO DAILY 01/10/19 Furosemide 20 mg PO DAILY 01/10/19 Umeclidinium Otoe [Incruse Ellipta] 62.5 mcg IH DAILY 01/10/19 Amlodipine Besylate [Norvasc -] 5 mg PO DAILY #30 tablet 01/18/19 Letrozole [Femara -] 2.5 mg PO DAILY #30 tablet 01/18/19 Pantoprazole Sodium [Protonix -] 40 mg PO DAILY #14 tablet.ec 01/18/19 predniSONE [Deltasone -] 10 mg PO ASDIR #12 tab 01/18/19
== END 2019-01-19 14:38 | disposition home or self-care (01) | DRG 377 ==
LOC: JER 11:19 → JERBED 15:36 → J4W 18:31
PROVIDERS: ADMIT Hospitalist; ATTEND Internal Medicine
PROC: 30233N1 Transfusion of Nonautologous Red Blood Cells into Peripheral Vein, Percutaneous Approach (ICD-10-PCS; 2019-01-10)
PROC: 0W3P8ZZ Control Bleeding in Gastrointestinal Tract, Via Natural or Artificial Opening Endoscopic (ICD-10-PCS; principal; 2019-01-18 12:00)
DX: K31.811 Angiodysplasia of stomach and duodenum with bleeding (principal); I50.33 Acute on chronic diastolic (congestive) heart failure; J18.9 Pneumonia, unspecified organism; J96.21 Acute and chronic respiratory failure with hypoxia; J98.11 Atelectasis; I24.8 Other forms of acute ischemic heart disease; N17.9 Acute kidney failure, unspecified; J44.1 Chronic obstructive pulmonary disease with (acute) exacerbation; I13.0 Hypertensive heart and chronic kidney disease with heart failure and stage 1 through stage 4 chronic kidney disease, or unspecified chronic kidney disease; D50.0 Iron deficiency anemia secondary to blood loss (chronic); N18.9 Chronic kidney disease, unspecified; C50.919 Malignant neoplasm of unspecified site of unspecified female breast; K22.70 Barrett's esophagus without dysplasia; E03.9 Hypothyroidism, unspecified; I48.91 Unspecified atrial fibrillation; Z85.3 Personal history of malignant neoplasm of breast; I25.119 Atherosclerotic heart disease of native coronary artery with unspecified angina pectoris
CPT/HCPCS: 36415; 36430; 36511; 71045-TC-FY; 71250-TC; 74176-TC; 76775-TC; 76856-TC; 80048; 80053; 81003; 82040; 82272; 82436; 82565; 82570; 82728; 83010; 83516; 83520; 83540; 83550; 83615; 83735; 83880; 83883; 84100; 84133; 84155; 84156; 84165; 84300; 84466; 84484; 85025; 85027; 85044; 85610; 85730; 86038; 86225; 86256; 86704; 86706; 86708; 86850; 86900; 86901; 86922; 87040; 87340; 87522; 87804; 87807; 87899; 93005; 93010; 93306-TC; 93971-TC; 94640; 94660; 99285-25; J1756; P9038; P9058